=== PATIENT | female | born 1955 | race Caucasian/White ===

== ENCOUNTER 2021-10-11 14:19 | Inpatient (IN) | payer BC, MEDICARE ==
[2021-10-11] MEDS ORDERED: SODIUM CHLORIDE 0.9% 1,000 ML IV ONE ×2 (15:29→15:53)
[2021-10-11] MEDS ORDERED: AMPICILLIN-SULBACTAM 3 GM in SODIUM CHLORIDE 0.9% 100 ML IVPB STA (15:47)
[2021-10-11] MEDS ORDERED: VANCOMYCIN IV PER PHARMACY 1 EACH MISC MISCELLANE PRN (15:47)
[2021-10-11] MEDS ORDERED: fentaNYL (PF) 50 MCG/ML 2 ML AMP IVP STA ×2 (15:53→17:38)
[2021-10-11 16:10] LABS: Albumin 3.4 g/dL (3.5-5.0); Calcium 9.9 mg/dL (8.4-10.2); Potassium 3.9 mmol/L (3.5-5.1); Total Bilirubin 0.7 mg/dL (0.2-1.3); Total Protein 7.5 g/dL (6.3-8.2)
[2021-10-11 16:14] LABS: Appearance,Urine Turbid (Clear); Bacteria,Urine Occasional /hpf; Bilirubin,Urine Negative (Negative); Blood,Urine Small (Negative); Color,Urine Yellow; Glucose,Urine (UA) Negative (Negative); Hyaline Casts,Urine 5 /lpf (0-2); Ketones,Urine Negative (Negative); Leukocyte Esterase,Urine Large (Negative); Nitrite,Urine Negative (Negative); PH, Urine 5.5 (5.0-8.0); Protein,Urine 1+ (Negative); RBC,Urine 20 /hpf (0-5); Specific Gravity,Urine 1.016 (1.001-1.035); Squamous Epithelial Cell,Urine 10 /hpf (0-4); Urobilinogen,Urine <2.0 mg/dL (<2.0); WBC,Urine >182 /hpf (0-5)
[2021-10-11 16:25] LABS: Basophils # (A) 0.1 k/uL (0-0.2); Basophils % (A) 0 %; Eosinophils % (A) 0 %; HCT 45.9 % (34.0-46.0); HGB 14.9 gm/dL (11.4-16.0); Lymphocytes # (A) 0.6 k/uL (1.0-4.8); Lymphocytes % (A) 3 %; MCH 27.9 pg (25.0-35.0); MCHC 32.5 g/dL (31.0-37.0); MCV 85.9 fL (80.0-100.0); Monocytes % (A) 4 %; Neutrophils # (A) 22.9 k/uL (1.3-7.7); Neutrophils % (A) 93 %; Platelet Count 480 k/uL (150-450); RBC 5.35 m/uL (3.80-5.40); RDW 15.3 % (11.5-15.5); WBC 24.8 k/uL (3.8-10.6)
[2021-10-11 16:27] LABS: Partial Thromboplastin Time 23.9 sec (22.0-30.0)
[2021-10-11] MEDS ORDERED: VANCOMYCIN 1,500 MG in SODIUM CHLORIDE 0.9% 250 ML IVPB ONE (16:30)
--- NOTE | 2021-10-11 16:47 | ED ---
General Adult HPI - General Source: patient, EMS Mode of arrival: EMS Limitations: no limitations <Jean Paul Ponce - Last Filed: 10/12/21 00:19> <Giselle Simmons - Last Filed: 10/14/21 00:02> - General Chief complaint: Extremity Injury, Lower Stated complaint: wounds Time Seen by Provider: 10/11/21 15:18 - History of Present Illness Initial comments: Patient is a 66-year-old female presenting with chief complaint of wounds to the bilateral lower legs. Patient states that she has not followed with a doctor for at least 20 years. Her at bedside states that the wounds on her bilateral lower legs started around June this year. The patient attempted to manage them at home through antibiotic creams and wrapping them. The states that he believes she has CHF, as her legs were routinely swollen, red, and weeping, causing the wounds to begin. She denies any trauma or injury prior to the wounds. Patient states that today at home she fell hitting her head, she denies loss of consciousness or blood thinners. She denies history of diabetes, chest pain, shortness of breath, lightheadedness, abdominal pain, nausea, vomiting, diarrhea, hematochezia, cough, hemoptysis, neck pain or stiffness, dysuria, hematuria, urgency, frequency, vision or hearing changes, dizziness. (Jean Paul Ponce) - Related Data Home Medications Medication Instructions Recorded Confirmed Ascorbic Acid [Vitamin C] 1,000 mg PO DAILY 10/11/21 10/11/21 Cholecalciferol [Vitamin D3 (125 125 mcg PO DAILY 10/11/21 10/11/21 Mcg = 5000 Iu)] Flaxseed Oil 1,000 mg PO DAILY 10/11/21 10/11/21 Ibuprofen [Motrin Ib] 600 mg PO Q8H PRN 10/11/21 10/11/21 Magnesium Oxide [Mag-Ox] 400 mg PO DAILY 10/11/21 10/11/21 Multivitamins, Thera [Multivitamin 1 tab PO DAILY 10/11/21 10/11/21 (formulary)] Naproxen Sodium [Aleve] 220 mg PO BID PRN 10/11/21 10/11/21 [place]-3 Fatty Acids/Fish Oil [Fish 1 cap PO DAILY 10/11/21 10/11/21 Oil 1,000 mg Softgel] Potassium Gluconate [Potassium 99 mg PO DAILY 10/11/21 10/11/21 Gluconate ER] Sennosides [Ex-Lax Chew] 15 mg PO DAILY PRN 10/11/21 10/11/21 Vitamin A [Vitamin A (8,000 Units 2,400 mcg PO DAILY 10/11/21 10/11/21 = 2,400 MCG)] Allergies Allergy/AdvReac Type Severity Reaction Status Date / Time No Known Allergies Allergy Verified 10/11/21 20:24 Review of Systems ROS Other: All systems not noted in ROS Statement are negative. <Jean Paul Ponce - Last Filed: 10/12/21 00:19> ROS Other: All systems not noted in ROS Statement are negative. <Giselle Simmons - Last Filed: 10/14/21 00:02> ROS Statement: Those systems with pertinent positive or pertinent negative responses have been documented in the HPI. Past Medical History Additional Past Medical History / Comment(s): lower back pain History of Any Multi-Drug Resistant Organisms: None Reported Past Surgical History: Tubal Ligation Past Psychological History: No Psychological Hx Reported Smoking Status: Current every day smoker Past Alcohol Use History: None Reported Past Drug Use History: None Reported <Jean Paul Ponce - Last Filed: 10/12/21 00:19> General Exam Limitations: no limitations General appearance: alert, in no apparent distress Head exam: Present: atraumatic, normocephalic, normal inspection Eye exam: Present: normal appearance, PERRL, EOMI. Absent: scleral icterus Neck exam: Present: normal inspection Respiratory exam: Present: normal lung sounds bilaterally. Absent: respiratory distress, wheezes, rales, rhonchi, stridor Cardiovascular Exam: Present: regular rate, normal rhythm, normal heart sounds. Absent: systolic murmur, diastolic murmur, rubs, gallop, clicks Extremities exam: Present: tenderness, pedal edema, other (Bilateral lower legs are swollen, red, have clearly necrotic wounds appearing black with green discharge and foul odor). Absent: full ROM Neurological exam: Present: alert, oriented X3, CN II-XII intact Psychiatric exam: Present: normal affect, normal mood <Jean Paul Ponce - Last Filed: 10/12/21 00:19> Course <Jean Paul Ponce - Last Filed: 10/12/21 00:19> Vital Signs 10/11/21 10/11/21 10/11/21 14:56 18:08 21:35 Temperature 97.6 F 97.8 F Pulse Rate 62 96 75 Respiratory 18 18 20 Rate Blood Pressure 98/62 109/59 125/68 O2 Sat by Pulse 97 97 95 Oximetry - Reevaluation(s) Reevaluation #1: Reevaluation patient is complaining of leg pain. Blood pressure has improved to 120/82, patient is not tachycardiac or hypoxic. Skin of the bilateral lower extremities is unchanged. 10/11/21 20:38 (Jean Paul Ponce) Medical Decision Making - Lab Data Result diagrams: 10/11/21 15:44 10/11/21 15:44 - Radiology Data Radiology results: report reviewed, image reviewed <Jean Paul Ponce - Last Filed: 10/12/21 00:19> - Lab Data Result diagrams: 10/13/21 06:00 10/13/21 06:26 <Giselle Simmons - Last Filed: 10/14/21 00:02> - Medical Decision Making Patient is a 66-year-old female presenting for evaluation of bilateral lower leg weakness. Her at bedside states that her wounds began in June, the patient attempted to care for herself with antibiotic creams. Patient also states that today she had a fall where she injured her head, no loss of consciousness, neck pain, or use of blood thinners. Today at presentation the wounds appear to be necrotic, they are black with green discharge and foul odor. She is very tender even with light pressure applied. No focal neurological deficits. Signal is obtained via Doppler from bilateral pedal pulses. Patient is hypotensive. CBC is remarkable for leukocytosis with WBC count of 24.8. She is hyponatremic with sodium of 130. She is in kidney failure with creatinine of 3.08 and BUN of 95 and GFR of 15. Urine is suspicious for UTI with positive WBC and small amount of blood. Patient was started on 2 L IV normal saline bolus, vancomycin, Unasyn. On reassessment patient's blood pressure is improving with IV fluids, she is placed on maintenance rate of [address] brain and cervical spine without contrast: Large right middle cerebral artery distribution subacute infarct. No fracture of the cervical spine or hemorrhage X-ray shows soft tissue swelling. No fracture or evidence of bone destruction. I spoke with Dr. Delatorre from [facility] to agreed to admit the patient. I informed the patient of this decision, she conveyed verbal understanding and agreed to the plan. I discussed this case with my attending Dr. Simmons. [facility] - Lab Data Lab Results 10/11/21 10/11/21 10/11/21 Range/Units 15:44 15:44 15:44 WBC 24.8 H (3.8-10.6) k/uL RBC 5.35 (3.80-5.40) m/uL Hgb 14.9 (11.4-16.0) gm/dL Hct 45.9 (34.0-46.0) % MCV 85.9 (80.0-100.0) fL MCH 27.9 (25.0-35.0) pg MCHC 32.5 (31.0-37.0) g/dL RDW 15.3 (11.5-15.5) % Plt Count 480 H (150-450) k/uL MPV 7.0 Neutrophils % 93 % Lymphocytes % 3 % Monocytes % 4 % Eosinophils % 0 % Basophils % 0 % Neutrophils # 22.9 H (1.3-7.7) k/uL Lymphocytes # 0.6 L (1.0-4.8) k/uL Monocytes # 1.0 (0-1.0) k/uL Eosinophils # 0.0 (0-0.7) k/uL Basophils # 0.1 (0-0.2) k/uL PT 11.0 (9.0-12.0) sec INR 1.0 (<1.2) APTT 23.9 (22.0-30.0) sec Sodium (137-145) mmol/L Potassium (3.5-5.1) mmol/L Chloride (98-107) mmol/L Carbon Dioxide (22-30) mmol/L Anion Gap mmol/L BUN (7-17) mg/dL Creatinine (0.52-1.04) mg/dL Est GFR (CKD-EPI)AfAm (>60 ml/min/1.73 sqM) Est GFR (CKD-EPI)NonAf (>60 ml/min/1.73 sqM) Glucose (74-99) mg/dL Plasma Lactic Acid Miguel (0.7-2.0) mmol/L Calcium (8.4-10.2) mg/dL Total Bilirubin (0.2-1.3) mg/dL AST (14-36) U/L ALT (4-34) U/L Alkaline Phosphatase (38-126) U/L Total Protein (6.3-8.2) g/dL Albumin (3.5-5.0) g/dL Urine Color Yellow Urine Appearance Turbid H (Clear) Urine pH 5.5 (5.0-8.0) Ur Specific [place] 1.016 (1.001-1.035) Urine Protein 1+ H (Negative) Urine Glucose (UA) Negative (Negative) Urine Ketones Negative (Negative) Urine Blood Small H (Negative) Urine Nitrite Negative (Negative) Urine Bilirubin Negative (Negative) Urine Urobilinogen <2.0 (<2.0) mg/dL Ur Leukocyte Esterase Large H (Negative) Urine RBC 20 H (0-5) /hpf Urine WBC >182 H (0-5) /hpf Ur Squamous Epith Cells 10 H (0-4) /hpf Urine Bacteria Occasional H (None) /hpf Hyaline Casts 5 H (0-2) /lpf 10/11/21 10/11/21 Range/Units 15:44 15:44 WBC (3.8-10.6) k/uL RBC (3.80-5.40) m/uL Hgb (11.4-16.0) gm/dL Hct (34.0-46.0) % MCV (80.0-100.0) fL MCH (25.0-35.0) pg MCHC (31.0-37.0) g/dL RDW (11.5-15.5) % Plt Count (150-450) k/uL MPV Neutrophils % % Lymphocytes % % Monocytes % % Eosinophils % % Basophils % % Neutrophils # (1.3-7.7) k/uL Lymphocytes # (1.0-4.8) k/uL Monocytes # (0-1.0) k/uL Eosinophils # (0-0.7) k/uL Basophils # (0-0.2) k/uL PT (9.0-12.0) sec INR (<1.2) APTT (22.0-30.0) sec Sodium 130 L (137-145) mmol/L Potassium 3.9 (3.5-5.1) mmol/L Chloride 93 L (98-107) mmol/L Carbon Dioxide 23 (22-30) mmol/L Anion Gap 14 mmol/L BUN 95 H (7-17) mg/dL Creatinine 3.08 H (0.52-1.04) mg/dL Est GFR (CKD-EPI)AfAm 17 (>60 ml/min/1.73 sqM) Est GFR (CKD-EPI)NonAf 15 (>60 ml/min/1.73 sqM) Glucose 140 H (74-99) mg/dL Plasma Lactic Acid Miguel 1.7 (0.7-2.0) mmol/L Calcium 9.9 (8.4-10.2) mg/dL Total Bilirubin 0.7 (0.2-1.3) mg/dL AST 17 (14-36) U/L ALT 20 (4-34) U/L Alkaline Phosphatase 159 H (38-126) U/L Total Protein 7.5 (6.3-8.2) g/dL Albumin 3.4 L (3.5-5.0) g/dL Urine Color Urine Appearance (Clear) Urine pH (5.0-8.0) Ur Specific [place] (1.001-1.035) Urine Protein (Negative) Urine Glucose (UA) (Negative) Urine Ketones (Negative) Urine Blood (Negative) Urine Nitrite (Negative) Urine Bilirubin (Negative) Urine Urobilinogen (<2.0) mg/dL Ur Leukocyte Esterase (Negative) Urine RBC (0-5) /hpf Urine WBC (0-5) /hpf Ur Squamous Epith Cells (0-4) /hpf Urine Bacteria (None) /hpf Hyaline Casts (0-2) /lpf - Radiology Data CT of the brain and cervical spine without contrast: Multilevel cervical spondylitic changes. No fracture. Large right middle cerebral artery distribution subacute infarct. Patchy white matter hypodensity consistent with chronic small vessel ischemia. No hemorrhage. (Jean Paul Ponce) Disposition Time of Disposition: 20:37 Decision to Admit Reason: Admit from EC Decision Date: 10/11/21 Decision Time: 20:37 <Jean Paul Ponce - Last Filed: 10/12/21 00:19> <Giselle Simmons - Last Filed: 10/14/21 00:02> Clinical Impression: Cellulitis Disposition: ADMITTED IP TO THIS HOSP Condition: Fair
--- NOTE | 2021-10-11 17:44 | CT ---
EXAMINATION TYPE: CT brain cspine wo con DATE OF EXAM: 10/11/2021 COMPARISON: None HISTORY: ams, septic CT DLP: 1362.6 mGycm Automated exposure control for dose reduction was used. Images of the brain and cervical spine obtained without contrast. There is large area of hypodensity involving the right temporal lobe that measures 9 x 3 cm and consi stent with subacute infarct. No mass effect. No midline shift. There is some patchy hypodensity in th e periventricular white matter and more noticeable in both frontal lobes. There is no evidence of int racranial hemorrhage. The calvarium is intact. Skull base is intact. There is normal aeration of the mastoid sinuses. Cervical vertebra have normal alignment. There is degenerative disc space narrowing at C4-5 and C5-6 and C6-7 with spurring of the endplates. Facet joints are intact. IMPRESSION: Multilevel cervical spondylotic changes. No fracture. Large right middle cerebral artery distribution subacute infarct. Patchy white matter hypodensity consistent with chronic small vessel ischemia. No hemorrhage.
[2021-10-11] MEDS: SODIUM CHLORIDE 0.9% 1,000 ML IV SCH (18:07)
--- NOTE | 2021-10-11 19:02 | XR ---
EXAMINATION TYPE: XR tibia fibula bilateral DATE OF EXAM: 10/11/2021 COMPARISON: NONE HISTORY: Infection TECHNIQUE: 7 views FINDINGS: Multiple film exam shows no fracture nor dislocation. Ankle joint and knee joint appear int act. No evidence of focal bone destruction. There is some mild soft tissue swelling over the anterior left mid and lower tibia. There is similar mild anterior soft tissue swelling over the lower right a nterior tibia. There is right large plantar calcaneal spur. IMPRESSION: Soft tissue swelling. No fracture. No evidence of bone destruction.
[2021-10-11] MEDS ORDERED: ACETAMINOPHEN TAB 325 MG TAB PO PRN (19:44)
[2021-10-11] MEDS ORDERED: NALOXONE 0.4 MG/ML 1 ML VIAL IV PRN (19:44)
[2021-10-11] MEDS ORDERED: ACETAMINOPHEN IV (For NPO) 1,000 MG in EMPTY BAG 1 BAG IVPB STA (20:40)
[2021-10-12] MEDS ORDERED: GABAPENTIN 300 MG CAP PO STA (01:34)
--- NOTE | 2021-10-12 02:08 | P.HPIM ---
History of Present Illness H&P Date: 10/11/21 Chief Complaint: bilateral leg wounds 66-year-old female no significant past medical history patient has not followed up with a doctor for over 20 years She is coming in today complaining of bilateral leg wounds, most of the history was obtained by talking to the daughter. The patient herself was having some odd behavior with labile emotions, most of the time she was holding her daughters handing crying feeling ashamed and frustrated with the condition of her legs. Per the daughter she never seen the wounds herself as the patient kept him wrapped but now she knows that it started back in June and it has been getting worse since then Patient denies any fevers or chills denies any chest pain or trouble breathing denies any abdominal pain nausea or vomiting. Denies any GI bleeding denies any focal neuro deficits However she does report draining wounds bilateral legs that's been getting worse over the past couple months, very tender to the light touch with a foul-smelling discharge. Otherwise history was very limited due to patient emotional swings and the daughter tried to comfort Workup in the ED showed leukocytosis, normal lactic acidosis, hyponatremia. Imaging showed large right MCA subacute infarct, and white matter changes suggestive of chronic small vessel ischemia Patient was given Unasyn and vancomycin cultures obtained and admitted for further care daughter reports a fall the other day , with no LOC no report of drug abuse , but patient does admit to tobacco smoking and blames her leg condition on smoking Review of Systems ROS unobtainable: due to mental status Past Medical History Additional Past Medical History / Comment(s): lower back pain History of Any Multi-Drug Resistant Organisms: None Reported Past Surgical History: Tubal Ligation Past Anesthesia/Blood Transfusion Reactions: No Reported Reaction Past Psychological History: No Psychological Hx Reported Smoking Status: Current every day smoker Past Alcohol Use History: None Reported Past Drug Use History: None Reported - Past Family History family Additional Family Medical History / Comment(s): heart disease chf Medications and Allergies Home Medications Medication Instructions Recorded Confirmed Type Ascorbic Acid [Vitamin C] 1,000 mg PO DAILY 10/11/21 10/11/21 History Cholecalciferol [Vitamin D3 (125 125 mcg PO DAILY 10/11/21 10/11/21 History Mcg = 5000 Iu)] Flaxseed Oil 1,000 mg PO DAILY 10/11/21 10/11/21 History Ibuprofen [Motrin Ib] 600 mg PO Q8H PRN 10/11/21 10/11/21 History Magnesium Oxide [Mag-Ox] 400 mg PO DAILY 10/11/21 10/11/21 History Multivitamins, Thera [Multivitamin 1 tab PO DAILY 10/11/21 10/11/21 History (formulary)] Naproxen Sodium [Aleve] 220 mg PO BID PRN 10/11/21 10/11/21 History [place]-3 Fatty Acids/Fish Oil [Fish 1 cap PO DAILY 10/11/21 10/11/21 History Oil 1,000 mg Softgel] Potassium Gluconate [Potassium 99 mg PO DAILY 10/11/21 10/11/21 History Gluconate ER] Sennosides [Ex-Lax Chew] 15 mg PO DAILY PRN 10/11/21 10/11/21 History Vitamin A [Vitamin A (8,000 Units 2,400 mcg PO DAILY 10/11/21 10/11/21 History = 2,400 MCG)] Allergies Allergy/AdvReac Type Severity Reaction Status Date / Time No Known Allergies Allergy Verified 10/11/21 20:24 Physical Exam Vitals: Vital Signs Temp Pulse Resp BP Pulse Ox 10/11/21 21:35 75 20 125/68 95 10/11/21 18:08 97.8 F 96 18 109/59 97 10/11/21 14:56 97.6 F 62 18 98/62 97 Intake and Output 10/11/21 10/11/21 10/12/21 14:59 22:59 06:59 Other: Weight 81.1 kg 81.1 kg limited exam due patient behavior and emotions. Constitutional: labile emotions, bizarre behavior Eyes: Anicteric sclerae, moist conjunctiva, Pupils equal round reactive to light ENMT: NC/AT Oropharynx clear, no erythema, or exudates Neck: Supple, no masses, or JVD No carotid bruits No thyromegaly Lungs: Clear to auscultation Clear to percussion Normal respiratory effort, no accessory muscle use Cardiovascular: Heart regular in rate and rhythm, No murmurs, gallops, or rubs No peripheral edema Abdominal: Soft Nontender, no guarding, rebound or rigidity Abdomen moving with respiration Normoactive bowel sounds No hepatomegaly, No splenomegaly No palpable mass No abdominal wall hernia noted Skin: bilateral erythema and swelling of the legs, multiple wounds with eschar and foul smelling discharge. some bandage parts still in place from home. Extremities: patient does not allow anyone to touch her legs Psychiatric: Alert and oriented to person, place bizarre behavior , paranoid Neuro Muscles Strength 4/5 in bilateral upper extremities , refused examining her lower extremities Sensation could not be performed over her lower extremities Cranial nerves II-XII grossly intact No focal sensory deficits Lymphatics: no palpable cervical or supraclavicular , or inguinal lymph nodes Results CBC & Chem 7: 10/11/21 15:44 10/11/21 15:44 Labs: Abnormal Lab Results - Last 24 Hours (Table) 10/11/21 10/11/21 10/11/21 Range/Units 15:44 15:44 15:44 WBC 24.8 H (3.8-10.6) k/uL Plt Count 480 H (150-450) k/uL Neutrophils # 22.9 H (1.3-7.7) k/uL Lymphocytes # 0.6 L (1.0-4.8) k/uL Sodium 130 L (137-145) mmol/L Chloride 93 L (98-107) mmol/L BUN 95 H (7-17) mg/dL Creatinine 3.08 H (0.52-1.04) mg/dL Glucose 140 H (74-99) mg/dL Alkaline Phosphatase 159 H (38-126) U/L Albumin 3.4 L (3.5-5.0) g/dL Urine Appearance Turbid H (Clear) Urine Protein 1+ H (Negative) Urine Blood Small H (Negative) Ur Leukocyte Esterase Large H (Negative) Urine RBC 20 H (0-5) /hpf Urine WBC >182 H (0-5) /hpf Ur Squamous Epith Cells 10 H (0-4) /hpf Urine Bacteria Occasional H (None) /hpf Hyaline Casts 5 H (0-2) /lpf Thrombosis Risk Factor Assmnt - Choose All That Apply Each Factor Represents 1 point: Obesity (BMI >25), Swollen legs (current) Each Risk Factor Represents 2 Points: Age 61-74 years Other congenital or acquired thrombophilia - If yes, enter type in comment: No Thrombosis Risk Factor Assessment Total Risk Factor Score: 4 Thrombosis Risk Factor Assessment Level: Moderate Risk Assessment and Plan Assessment: sepsis with bilateral leg wounds / cellulitis follow up cultures empiric antibiotics with vanco ivf hydration with saline pain control wound care subacute stroke neuro checks neurology consult aspirin and statin echo carotid US TSH A1C Lipid pannel fall precautions full code hepairn sc tid anticipated length of stay > 2mid nights
[2021-10-12] MEDS: SODIUM CHLORIDE 0.9% 1,000 ML IV SCH ×3 (04:05→20:54)
[2021-10-12 08:23] LABS: African American GFR (CKD) 33 (>60 ml/min/1.73 sqM); Anion Gap 8 mmol/L; Blood Urea Nitrogen 79 mg/dL (7-17); Calcium 8.1 mg/dL (8.4-10.2); Carbon Dioxide 23 mmol/L (22-30); Chloride 105 mmol/L (98-107); Glucose 103 mg/dL (74-99); Non-African American GFR(CKD) 29 (>60 ml/min/1.73 sqM); Potassium 3.2 mmol/L (3.5-5.1); Sodium 136 mmol/L (137-145)
[2021-10-12] MEDS ORDERED: HALOPERIDOL LACTATE 5 MG/ML 1 ML VIAL IM PRN (08:57)
[2021-10-12] MEDS ORDERED: POTASSIUM CHLORIDE ER 20 MEQ TAB.ER PO STA (08:58)
[2021-10-12] MEDS ORDERED: [UNRECOGNIZED DRUG - OTHER] PO PRN (09:00)
[2021-10-12] MEDS: ATORVASTATIN 40 MG TAB PO SCH (09:48)
[2021-10-12] MEDS: HEPARIN SODIUM,PORCINE/PF 5,000 UNIT/0.5 ML SYRINGE SQ SCH ×4 (09:49→23:31)
[2021-10-12] MEDS: MORPHINE SULFATE 4 MG/ML SYRINGE IVP PRN ×2 (09:49→14:45)
[2021-10-12] MEDS: ASPIRIN 325 MG TAB PO SCH (09:49)
[2021-10-12] MEDS: ACETAMINOPHEN IV (For NPO) 1,000 MG in EMPTY BAG 1 BAG IVPB SCH ×3 (11:20→23:30)
[2021-10-12 11:31] LABS: HCT 37.7 % (37.2-46.3); HGB 12.2 g/dL (12.0-15.0); MCH 27.8 pg (27.0-32.0); MCHC 32.4 g/dL (32.0-37.0); MCV 85.9 fL (80.0-97.0); Mean Platelet Volume 8.9 fL (9.5-12.2); NRBC Per 100 WBC 0 /100 WBCS (0.0-0.0); Platelet Count 391 X 10*3/uL (140-440); RBC 4.39 X 10*6/uL (4.10-5.20); RDW 15.9 % (11.5-14.5)
[2021-10-12 11:49] LABS: Chol/HDL Ratio 5.62 Ratio; LDL Cholesterol,Calculated 101.5 mg/dL (0.0-131.0)
[2021-10-12] MEDS ORDERED: VANCOMYCIN 1,500 MG in SODIUM CHLORIDE 0.9% 250 ML IVPB ONE (12:00)
[2021-10-12 12:02] LABS: Basophils # (A) 0.08 X 10*3/uL (0.00-0.10); Basophils % (A) 0.3 %; Eosinophils # (A) 0.01 X 10*3/uL (0.04-0.35); Eosinophils % (A) 0 %; Lymphocytes # (A) 0.72 X 10*3/uL (0.90-5.00); Lymphocytes % (A) 3.1 %; Monocytes # (A) 1.52 X 10*3/uL (0.20-1.00); Monocytes % (A) 6.6 %; Neutrophils # (A) 20.64 X 10*3/uL (1.80-7.70)
--- NOTE | 2021-10-12 12:37 | CA ---
Transthoracic Echo Report Name: Mirela Melgar Age: 66 Gender: F : 1955 Exam Date: 10/12/2021 08:25 Exam Location: [facility] Ht (in): 63 Wt (lb): 178 Ordering Physician: Brittaney Almazan MD Attending/Referring Phys: [id number], Tha Supervisor [employer] Vania Navarrete RDCS Procedure CPT: Indications: stroke Cardiac Hx: No cardiac hx Technical Quality: Good Contrast 1: Total Dose (mL): Contrast 2: Total Dose (mL): MEASUREMENTS (Male / Female) Normal Values 2D ECHO LV Diastolic Diameter PLAX 4.9 cm 4.2 - 5.9 / 3.9 - 5.3 cm LV Systolic Diameter PLAX 3.4 cm IVS Diastolic Thickness 0.8 cm 0.6 - 1.0 / 0.6 - 0.9 cm LVPW Diastolic Thickness 1.0 cm 0.6 - 1.0 / 0.6 - 0.9 cm LV Relative Wall Thickness 0.4 RV Internal Dim ED PLAX 4.5 cm LVOT Diameter 1.7 cm LA Volume 38.0 cm 18 - 58 / 22 - 52 cm M-MODE Aortic Root Diameter MM 3.4 cm LA Systolic Diameter MM 2.3 cm LA Ao Ratio MM 0.7 MV E Point Septal Separation 2.3 cm AV Cusp Separation MM 1.6 cm DOPPLER AV Peak Velocity 233.5 cm/s AV Peak Gradient 21.8 mmHg AV Mean Velocity 160.7 cm/s AV Mean Gradient 12.1 mmHg AV Velocity Time Integral 43.0 cm LVOT Peak Velocity 109.5 cm/s LVOT Peak Gradient 4.8 mmHg AV Area Cont Eq pk 1.0 cm MV Area PHT 3.7 cm MR Peak Velocity 200.0 cm/s MR Peak Gradient 16.0 mmHg Mitral E Point Velocity 81.6 cm/s Mitral A Point Velocity 132.5 cm/s Mitral E to A Ratio 0.6 MV Deceleration Time 204.9 ms MV E' Velocity 5.1 cm/s Mitral E to MV E' Ratio 15.9 TR Peak Velocity 235.4 cm/s TR Peak Gradient 22.2 mmHg Right Ventricular Systolic Press 25.7 mmHg FINDINGS Left Ventricle Normal left ventricular size, wall thickness. Left ventricular ejection fraction is estimated at 40-45 %. Grade 1 diastolic dysfunction. Mid to basal inferoseptal is hypokinetic. Right Ventricle Moderate right ventricular dilatation. Right ventricular systolic pressure within normal limits. Right Atrium The right atrium is normal in size. Left Atrium The left atrium is normal in size. Mitral Valve Structurally normal mitral valve without significant stenosis or prolapse. There is mild mitral regurgitation. Mitral valve thickened. Aortic Valve Mild aortic stenosis with a peak gradient of 21 mmHg and a mean gradient of 12 mmHg. Trileaflet aortic valve. Tricuspid Valve Structurally normal tricuspid valve without significant stenosis. Pulmonary artery systolic pressure is normal. [id number] tricuspid regurgitation. Pulmonic Valve Structurally normal pulmonic valve without significant stenosis. There is no pulmonic regurgitation. Pericardium Normal pericardium without effusion. Aorta Normal aortic root dimension. CONCLUSIONS Moderate LV systolic dysfunction with inferoseptal hypokinesis or aortic sclerosis with mild aortic stenosis and mild mitral and mild to moderate tricuspid regurgitation Previewed by: Dr. Abel Mccall MD (Electronically Signed) Final Date: 12 October 2021 12:36
[2021-10-12] MEDS: HYDROcodone/APAP 5-325MG 1 EACH TAB PO PRN ×2 (13:21→20:53)
[2021-10-12] MEDS ORDERED: AMPICILLIN-SULBACTAM 3 GM in SODIUM CHLORIDE 0.9% 100 ML IVPB SCH (13:30)
--- NOTE | 2021-10-12 13:31 | P.CN ---
Psychiatric Consult - . Consult date: 10/12/21 Consult:: 10/12/21 13:21 This is a psychiatric evaluation on Mirela Lugo who is a 66-year-old female and was currently hospitalized with multiple health problems that includes bilateral leg wounds. Patient also has had workup in the ED showing leukocytosis hyponatremia large right MCA subacute infarct and white matter changes suggestive of chronic small vessel ischemia Patient is currently on antibiotic treatment as well as has also been started on Haldol when necessary as of today Patient has been requested for psychiatric evaluation for acute mental status changes This was also noticed at the time of admission were patient seemed to be very labile with frequent crying and hanging onto her daughter When seen today patient was pleasant in interaction She seemed to be appropriate for a short period of time where she was able to give appropriate history about her coming in the hospital for some mood problems but was unable to explain She however seemed to be more interested in giving her information about her past history, going through a divorce when she saw a counselor along with her ex- as well as talked about her grandson who lives in [place] and was dating someone who looks like Latosha Patient then suddenly started to stutter and cry and stated that it was coming Patient then started to poke herself at different places on her chest trying to get it out She also continued to cry loudly for a less than minute and then wouldn't cling onto her hand These episodes would clear up suddenly and patient wouldn't be back to her pleasant self Past history personal and social history Patient was able to talk about her divorce and remarriage She was able to give appropriate information regarding the children and grandchildren 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 She was unable to give any specific dates and times She was unable to give any specifics about her reason for being in the hospital Mental status examination reveals a elderly female who initially was pleasant and cooperative but seemed to have labile affect with periods of crying fearfulness and also possibly experiencing visual hallucinations Further mental status examination is as per described above Patient's formal and operational judgment and insight are poor Problem-solving abilities are impaired Memory for the past and present events appears to be patchy with recent memory worse in the past Cognitively patient appears to be impaired Diagnostic impression: Major neurocognitive disorder/delirium Psychotic disorder unspecified Plan: The patient is oriented been started on haloperidol when necessary starting today and would agree with the current regimen Patient's current symptoms are involving and most likely related to her medical complications and will most likely fluctuated until those under better control We'll follow this patient along with you. Monitor for EPS tremor tardive dyskinesia akathisia QTC prolongation with the antipsychotic administration Thank you" kind referral please contact me if any further questions Rudy Tomas M.D. 10/12/2021
--- NOTE | 2021-10-12 14:09 | P.PN ---
Subjective Progress Note Date: 10/12/21 (delayed charting seen at 0830) Principal diagnosis: wounds Patient is a 66 yo female with low back pain who has not seen a doctor in years who was sent in by Dr. Jones for lower extremity wounds. She was found to have cellulitis with sepsis, ZANDER, and thrombocytosis. Her UA demonstrated bacturia. Her Head CT showed multilevel cervical spondolytic changes and left middle cerebral artery subacute infarct and chronic small vessel ischemic changes. She was started on antibiotics and IV fluids. Patient seen and examined at bedside. She is tearful and crying, she states that her wounds started about 6 months ago, she was using emu cream and wrapping her legs but there just continued to get worse. She is tearful as she lost both her sons in a hosptial and she thinks that the shadows are coming to get her. Daughter is at bedside and all questions were answered. General: ill appearing, moderate distress, appears at stated age Derm: bilateral lower extremites with erythema, warmth, edema with necrotic areas over bilateral bustillos and areas of bleeding, purulent drainage Head: atraumatic, normocephalic, symmetric Eyes: EOMI, no lid lag, anicteric sclera Mouth: no lip lesion, mucus membranes moist Cardiovascular: S1S2 tachy, no murmur, positive posterior tibial pulse bilateral, Lungs: Course bs bilateral, no rhonchi, no rales , no accessory muscle use Abdominal: soft, nontender to palpation, no guarding, no appreciable organomegaly Ext: no gross muscle atrophy, no edema, no contractures Neuro: CN II-XI grossly intact, no focal neuro deficits Psych: Alert, oriented, upset, tearful concerned about the shadows getting her Assessment/Plan: Bilateral Lower extremity cellultis with chronic wounds - spent time removing dressings from bilateral lower extremities with saline and sterile water - consult Dr. Penaloza - pain control - morphine, norco, and neurontin - unasyn and vanco - blood cultures pending - likely need enzymaric debridement and when pain improved doppler to asses blood flow. leave without ointment until evaluated by Dr. Penaloza ZANDER - IVF - avoid additional nephrotoxic agents - improving but if improvement slows then renal ultrasound Subacute Left MCA CVA - ASA, statin - echo with depressed EF - carotid us - lipid profile - check A1C - neuro consults Cardiomyopathy - EF 40-45% - Grade 1 diastolic dysfunction - hypokensis - consult cardio Hallucinations - prn haldol - psych consult - supportive environment Bacturia - concern for UTI with halluciations as patient is unreliable and has been urinating frequently per nursing - on unasyn - await cultures DVT prophylaxis: Lovenox Discussed with: Patient, nursing, daughter, Anticipated discharge: pending clinical course Anticipated discharge place: home A total of 65 minutes was spent on the care of this complex patient more than 50% of the time was spent in counseling and care coordination. Objective - Vital Signs Vital signs: Vital Signs Temp 98.4 F 10/12/21 11:39 Pulse 83 10/12/21 11:39 Resp 20 10/12/21 11:39 BP 99/67 10/12/21 11:39 Pulse Ox 95 10/12/21 11:39 Intake & Output 10/11/21 10/12/21 10/12/21 18:59 06:59 18:59 Intake Total 1170 Balance 1170 Weight 81.1 kg 81.1 kg Intake: Intake, IV Titration 1170 Amount Sodium Chloride 0.9% 1, 1170 000 ml @ 130 mls/hr IV . Q7H42M [facility] Rx#:[id number] Other: Voiding Method Incontinent # Voids 2 - Labs CBC & Chem 7: 10/12/21 06:12 10/12/21 06:12 Labs: Abnormal Lab Results - Last 24 Hours (Table) 10/11/21 10/11/21 10/11/21 Range/Units 15:44 15:44 15:44 WBC 24.8 H (3.8-10.6) k/uL RDW (11.5-14.5) % Plt Count 480 H (150-450) k/uL MPV (9.5-12.2) fL Immature Gran # (0.00-0.04) X 10*3/uL Neutrophils # 22.9 H (1.3-7.7) k/uL Lymphocytes # 0.6 L (1.0-4.8) k/uL Monocytes # (0.20-1.00) X 10*3/uL Eosinophils # (0.04-0.35) X 10*3/uL Sodium 130 L (137-145) mmol/L Potassium (3.5-5.1) mmol/L Chloride 93 L (98-107) mmol/L BUN 95 H (7-17) mg/dL Creatinine 3.08 H (0.52-1.04) mg/dL Glucose 140 H (74-99) mg/dL Hemoglobin A1c (0.0-6.0) % Calcium (8.4-10.2) mg/dL Alkaline Phosphatase 159 H (38-126) U/L Albumin 3.4 L (3.5-5.0) g/dL HDL Cholesterol (40.00-60.00) mg/dL TSH (0.350-5.500) uIU/mL Urine Appearance Turbid H (Clear) Urine Protein 1+ H (Negative) Urine Blood Small H (Negative) Ur Leukocyte Esterase Large H (Negative) Urine RBC 20 H (0-5) /hpf Urine WBC >182 H (0-5) /hpf Ur Squamous Epith Cells 10 H (0-4) /hpf Urine Bacteria Occasional H (None) /hpf Hyaline Casts 5 H (0-2) /lpf 10/12/21 10/12/21 10/12/21 Range/Units 06:12 06:12 06:12 WBC 23.20 H (3.8-10.6) k/uL RDW 15.9 H (11.5-14.5) % Plt Count (150-450) k/uL MPV 8.9 L (9.5-12.2) fL Immature Gran # 0.23 H (0.00-0.04) X 10*3/uL Neutrophils # 20.64 H (1.3-7.7) k/uL Lymphocytes # 0.72 L (1.0-4.8) k/uL Monocytes # 1.52 H (0.20-1.00) X 10*3/uL Eosinophils # 0.01 L (0.04-0.35) X 10*3/uL Sodium 136 L (137-145) mmol/L Potassium 3.2 L (3.5-5.1) mmol/L Chloride (98-107) mmol/L BUN 79 H (7-17) mg/dL Creatinine 1.80 H (0.52-1.04) mg/dL Glucose 103 H (74-99) mg/dL Hemoglobin A1c 8.0 H (0.0-6.0) % Calcium 8.1 L (8.4-10.2) mg/dL Alkaline Phosphatase (38-126) U/L Albumin (3.5-5.0) g/dL HDL Cholesterol (40.00-60.00) mg/dL TSH (0.350-5.500) uIU/mL Urine Appearance (Clear) Urine Protein (Negative) Urine Blood (Negative) Ur Leukocyte Esterase (Negative) Urine RBC (0-5) /hpf Urine WBC (0-5) /hpf Ur Squamous Epith Cells (0-4) /hpf Urine Bacteria (None) /hpf Hyaline Casts (0-2) /lpf 10/12/21 Range/Units 06:12 WBC (3.8-10.6) k/uL RDW (11.5-14.5) % Plt Count (150-450) k/uL MPV (9.5-12.2) fL Immature Gran # (0.00-0.04) X 10*3/uL Neutrophils # (1.3-7.7) k/uL Lymphocytes # (1.0-4.8) k/uL Monocytes # (0.20-1.00) X 10*3/uL Eosinophils # (0.04-0.35) X 10*3/uL Sodium (137-145) mmol/L Potassium (3.5-5.1) mmol/L Chloride (98-107) mmol/L BUN (7-17) mg/dL Creatinine (0.52-1.04) mg/dL Glucose (74-99) mg/dL Hemoglobin A1c (0.0-6.0) % Calcium (8.4-10.2) mg/dL Alkaline Phosphatase (38-126) U/L Albumin (3.5-5.0) g/dL HDL Cholesterol 28.30 L (40.00-60.00) mg/dL TSH 0.222 L (0.350-5.500) uIU/mL Urine Appearance (Clear) Urine Protein (Negative) Urine Blood (Negative) Ur Leukocyte Esterase (Negative) Urine RBC (0-5) /hpf Urine WBC (0-5) /hpf Ur Squamous Epith Cells (0-4) /hpf Urine Bacteria (None) /hpf Hyaline Casts (0-2) /lpf Microbiology - Last 24 Hours (Table) 10/11/21 15:44 Urine Culture - Preliminary Urine,Voided 10/11/21 15:44 Wound Culture - Preliminary Leg - Left
[2021-10-12] MEDS: GABAPENTIN 100 MG CAP PO SCH ×2 (16:03→20:54)
--- NOTE | 2021-10-12 16:14 | US ---
EXAMINATION TYPE: US carotid duplex BILAT DATE OF EXAM: 10/12/2021 COMPARISON: NONE CLINICAL HISTORY: subacute stroke. EXAM MEASUREMENTS: RIGHT: Peak Systolic Velocity (PSV) cm/sec ----- Right CCA: 103.0 ----- Right ICA: 79.3 ----- Right ECA: 74.1 ICA/CCA ratio: 0.77 RIGHT: End Diastole cm/sec ----- Right CCA: 17.5 ----- Right ICA: 9.7 ----- Right ECA: 11.0 LEFT: Peak Systolic Velocity (PSV) cm/sec ----- Left CCA: 83.2 ----- Left ICA: 96.1 ----- Left ECA: 194.0 ICA/CCA ratio: 1.16 LEFT: End Diastole cm/sec ----- Left CCA: 21.4 ----- Left ICA: 24.7 ----- Left ECA: 23.3 VERTEBRALS (direction of flow): Right Vertebral: unable to identify flow Left Vertebral: Antegrade Rhythm: Normal No significant stenosis seen. Elevated left ECA velocity. IMPRESSION: No significant common or internal carotid artery stenosis. Criteria for Assigning % of Stenosis / Diameter reduction (Estimation based on the indirect measurements of the internal carotid artery velocities (ICA PSV). 1. Normal (no stenosis)=ICA PSV < 125 cm/s: ratio < 2.0: ICA EDV<40 cm/s. 2. Less than 50% stenosis=ICA PSV < 125 cm/s: ratio < 2.0: ICA EDV<40 cm/s. 3. 50 to 69% stenosis=ICA PSV of 125 to 230 cm/s: ration 2.0 ? 4.0: ICA EDV 40-100 cm/s. 4. Greater than 70% stenosis to near occlusion= ICA PSV > 230 cm/s: ratio > 4.0: ICA EDV > 100 cm/s. 5. Near occlusion= ICA PSV velocities may be low or undetectable: variable ratio and ICA EDV. 6. Total occlusion=unable to detect flow.
--- NOTE | 2021-10-12 16:17 | P.CNNES ---
History of Present Illness Consult date: 10/12/21 Reason for Consult: stroke History of Present Illness: The patient is a 66-year-old female who is seen in neurologic consultation on October 12, 2021, via teleneurology. The patient is being seen because of concerns regarding stroke. She came into the hospital because of confusion and mental status changes. CT scan of the brain in the emergency department revealed a large, right hemispheric, subacute stroke. Lab work in the emergency department revealed a leukocytosis. Urinalysis is positive for infection. The patient was brought into the hospital by her daughter, who provided the history for the emergency department doctor and history and physical. The patient was reportedly very emotionally labile. Patient reportedly has not seen a doctor in many years. The patient also has wounds on her lower extremities. These wounds are reportedly weeping and foul-smelling. The patient's is present at the bedside at the time of the evaluation. He reports this his 's mental status is definitely different than usual. He is not really aware of the length of time that the wounds on her legs, have been present. The patient herself reports that they have been present for approximately 2-3 months. The patient's reports that other people have reported that the patient seems to be leaning to the left when she walks. She reportedly had a fall down a flight of stairs many years ago. Since that time she has had difficulty with her back and her left leg. The patient denies weakness in her left arm. She denies numbness and tingling in her face and arm. She denies visual changes, difficulty with speech and difficulty swallowing. The patient denies headache. The patient reportedly tripped and fell on Thursday of this past week. She reports feeling very weak. Past Medical History Additional Past Medical History / Comment(s): lower back pain History of Any Multi-Drug Resistant Organisms: None Reported Past Surgical History: Tubal Ligation Past Anesthesia/Blood Transfusion Reactions: No Reported Reaction Past Psychological History: No Psychological Hx Reported Smoking Status: Current every day smoker Past Alcohol Use History: None Reported Past Drug Use History: None Reported - Past Family History family Additional Family Medical History / Comment(s): heart disease chf Medications and Allergies Home Medications Medication Instructions Recorded Confirmed Type Ascorbic Acid [Vitamin C] 1,000 mg PO DAILY 10/11/21 10/11/21 History Cholecalciferol [Vitamin D3 (125 125 mcg PO DAILY 10/11/21 10/11/21 History Mcg = 5000 Iu)] Flaxseed Oil 1,000 mg PO DAILY 10/11/21 10/11/21 History Ibuprofen [Motrin Ib] 600 mg PO Q8H PRN 10/11/21 10/11/21 History Magnesium Oxide [Mag-Ox] 400 mg PO DAILY 10/11/21 10/11/21 History Multivitamins, Thera [Multivitamin 1 tab PO DAILY 10/11/21 10/11/21 History (formulary)] Naproxen Sodium [Aleve] 220 mg PO BID PRN 10/11/21 10/11/21 History [place]-3 Fatty Acids/Fish Oil [Fish 1 cap PO DAILY 10/11/21 10/11/21 History Oil 1,000 mg Softgel] Potassium Gluconate [Potassium 99 mg PO DAILY 10/11/21 10/11/21 History Gluconate ER] Sennosides [Ex-Lax Chew] 15 mg PO DAILY PRN 10/11/21 10/11/21 History Vitamin A [Vitamin A (8,000 Units 2,400 mcg PO DAILY 10/11/21 10/11/21 History = 2,400 MCG)] Allergies Allergy/AdvReac Type Severity Reaction Status Date / Time No Known Allergies Allergy Verified 10/11/21 20:24 Physical Examination - Vital Signs Vital Signs: Vital Signs Temp Pulse Pulse Resp BP BP Pulse Ox 10/12/21 04:40 97.7 F 83 18 108/64 96 10/12/21 00:05 18 10/11/21 21:35 75 20 125/68 95 10/11/21 18:08 97.8 F 96 18 109/59 97 10/11/21 14:56 97.6 F 62 18 98/62 97 Intake and Output 10/11/21 10/12/21 10/12/21 22:59 06:59 14:59 Intake Total 1170 Balance 1170 Intake: Intake, IV Titration 1170 Amount Sodium Chloride 0.9% 1, 1170 000 ml @ 130 mls/hr IV . Q7H42M [facility] Rx#:[id number] Other: # Voids 2 Weight 81.1 kg Gen.: The patient is reclining in the bed. She is well-nourished, she is in no acute distress. HEENT: Head is atraumatic, normocephalic. Fundus not visualized. There is no scleral icterus. Mucous membranes are dry. Neck: Supple without carotid bruits Heart: Regular rate and rhythm without murmur Lungs: Essentially clear to auscultation Extremities: There is cellulitis with wounds on the bilateral lower extremities, below the knees. Neurological examination Mental status: The patient is awake, alert and oriented 3. She is very tangential. She has difficulty staying on task, when answering questions and following instructions. She is hyperverbal. The patient is able to accurately follow two-step commands. There is no right/left confusion. Cranial nerves: Pupils are slightly unequal with the right pupil being 2.5 mm and the left 2 mm. Both are sluggishly reactive. [place] are full to confrontation. Extraocular movements are intact. There is no nystagmus. Facial sensation is intact. There is no facial asymmetry. Hearing is diminished. Uvula and palate are midline. Shoulder shrug is symmetric. Tongue protrudes midline. Motor: Strength is 5/5 in the bilateral upper extremities. Lower extremity strength testing was not carried out secondary to cellulitis and open wounds. Sensation: Intact to light touch in the bilateral upper extremities and bilateral thighs. There is no extinction with simultaneous stimulation. Coordination: There is no pronator drift. Finger to nose and rapid alternating movements are intact. Deep tendon reflexes: 2+/4+ in the bilateral upper extremities. Lower extremity reflexes are not assessed secondary to cellulitis and open wounds. Gait: Not assessed Results - Laboratory Findings CBC and BMP: 10/12/21 06:12 10/12/21 06:12 Abnormal Lab Findings: Abnormal Labs 10/11/21 10/11/21 10/11/21 15:44 15:44 15:44 WBC 24.8 H Plt Count 480 H Neutrophils # 22.9 H Lymphocytes # 0.6 L Sodium 130 L Potassium Chloride 93 L BUN 95 H Creatinine 3.08 H Glucose 140 H Calcium Alkaline Phosphatase 159 H Albumin 3.4 L Urine Appearance Turbid H Urine Protein 1+ H Urine Blood Small H Ur Leukocyte Esterase Large H Urine RBC 20 H Urine WBC >182 H Ur Squamous Epith Cells 10 H Urine Bacteria Occasional H Hyaline Casts 5 H 10/12/21 06:12 WBC Plt Count Neutrophils # Lymphocytes # Sodium 136 L Potassium 3.2 L Chloride BUN 79 H Creatinine 1.80 H Glucose 103 H Calcium 8.1 L Alkaline Phosphatase Albumin Urine Appearance Urine Protein Urine Blood Ur Leukocyte Esterase Urine RBC Urine WBC Ur Squamous Epith Cells Urine Bacteria Hyaline Casts - Diagnostic Findings Comments: CT scan images are personally reviewed. There is evidence of a large, subacute ischemic infarction involving the right cerebral hemisphere Assessment and Plan Assessment: 1. Large, subacute, right cerebral hemispheric infarct-the patient has no lateralizing findings on her examination, attributable to this stroke 2. Toxic encephalopathy/delirium secondary to infection Plan: 1. Dual antiplatelet therapy, with aspirin 81 mg and Plavix 75 mg daily for 21 days, then continue with aspirin monotherapy 2. High-dose statin should be initiated 3. 2-D echocardiogram 4. MRI of brain may be beneficial to further classify age of stroke 5. Carotid Doppler 6. Usual stroke orders including, PT, OT and speech therapy evaluations. Lipid panel, hemoglobin A1c and TSH Time with Patient: Greater than 30 (spent 40 minutes with patient via telemedicine)
[2021-10-12] MEDS: AMPICILLIN-SULBACTAM 3 GM in SODIUM CHLORIDE 0.9% 100 ML IVPB SCH (23:31)
--- NOTE | 2021-10-12 23:59 | P.CONS ---
History of Present Illness - Reason for Consult Consult date: 10/12/21 Bilateral lower extremity wound and cellulitis Requesting physician: Saritha Harper - Chief Complaint Bilateral lower extremity wound pain x months - History of Present Illness Patient is a 66-year-old female with no significant past medical history as the patient has not follow-up with the doctors for almost 20 years, patient did have a history of bilateral lower extremity swelling and apparently patient did have blisters does have rupture leading to some superficial ulceration with the patient has been taking care of at home by putting different type of salves on it, patient presented to the [facility] ER yesterday for evaluation of worsening bilateral lower extremity wound this patient apparently was getting frustrated initiated with her lower extremity wound had not healing patient be complaining of pain to bilateral lower extremity wound to be more of a dull aching to sharp 6-7 out of 10 and no radiation patient apparently having more swelling and redness is seen to having some foul-smelling drainage on presentation to the hospital the patient was afebrile and no fever have been recorded subsequently patient did have white count of 24.8 with a left shift did have elevated BUN to creatinine liver exams are normal urine has been positive patient did have local cultures obtained which are currently pending blood cultures are pending patient is currently being treated with a Unasyn infectious disease was consulted for further management of antibiotic therapy patient is also on vancomycin Review of Systems Positive point has been mentioned in the HPI rest of the systems are negative Past Medical History Additional Past Medical History / Comment(s): lower back pain History of Any Multi-Drug Resistant Organisms: None Reported Past Surgical History: Tubal Ligation Past Anesthesia/Blood Transfusion Reactions: No Reported Reaction Past Psychological History: No Psychological Hx Reported Smoking Status: Current every day smoker Past Alcohol Use History: None Reported Past Drug Use History: None Reported - Past Family History family Additional Family Medical History / Comment(s): heart disease chf Medications and Allergies Home Medications Medication Instructions Recorded Confirmed Type Ascorbic Acid [Vitamin C] 1,000 mg PO DAILY 10/11/21 10/11/21 History Cholecalciferol [Vitamin D3 (125 125 mcg PO DAILY 10/11/21 10/11/21 History Mcg = 5000 Iu)] Flaxseed Oil 1,000 mg PO DAILY 10/11/21 10/11/21 History Ibuprofen [Motrin Ib] 600 mg PO Q8H PRN 10/11/21 10/11/21 History Magnesium Oxide [Mag-Ox] 400 mg PO DAILY 10/11/21 10/11/21 History Multivitamins, Thera [Multivitamin 1 tab PO DAILY 10/11/21 10/11/21 History (formulary)] Naproxen Sodium [Aleve] 220 mg PO BID PRN 10/11/21 10/11/21 History [place]-3 Fatty Acids/Fish Oil [Fish 1 cap PO DAILY 10/11/21 10/11/21 History Oil 1,000 mg Softgel] Potassium Gluconate [Potassium 99 mg PO DAILY 10/11/21 10/11/21 History Gluconate ER] Sennosides [Ex-Lax Chew] 15 mg PO DAILY PRN 10/11/21 10/11/21 History Vitamin A [Vitamin A (8,000 Units 2,400 mcg PO DAILY 10/11/21 10/11/21 History = 2,400 MCG)] Allergies Allergy/AdvReac Type Severity Reaction Status Date / Time No Known Allergies Allergy Verified 10/11/21 20:24 Physical Exam Vitals: Vital Signs Temp Pulse Pulse Resp BP BP Pulse Ox 10/12/21 11:39 98.4 F 83 20 99/67 95 10/12/21 04:40 97.7 F 83 18 108/64 96 10/12/21 00:05 18 10/11/21 21:35 75 20 125/68 95 10/11/21 18:08 97.8 F 96 18 109/59 97 10/11/21 14:56 97.6 F 62 18 98/62 97 Intake and Output 10/11/21 10/12/21 10/12/21 22:59 06:59 14:59 Intake Total 1170 Balance 1170 Intake: Intake, IV Titration 1170 Amount Sodium Chloride 0.9% 1, 1170 000 ml @ 130 mls/hr IV . Q7H42M [facility] Rx#:[id number] Other: Voiding Method Incontinent # Voids 2 Weight 81.1 kg GENERAL DESCRIPTION: An elderly female lying in bed, no distress. No tachypnea or accessory muscle of respiration use. HEENT: Shows Pallor , no scleral icterus. Oral mucous membrane is dry. No pharyngeal erythema or thrush NECK: Trachea central, no thyromegaly. LUNGS: Unlabored breathing. Clear to auscultation anteriorly. No wheeze or crackle. HEART: S1, S2, regular rate and rhythm. No loud murmur ABDOMEN: Soft, no tenderness , guarding or rigidity, no organomegaly EXTREMITIES: Bilateral lower extremity with extensive wounds did have some necrotic skin and soft tissue surrounding redness and some foul-smelling SKIN: No rash, no masses palpable. NEUROLOGICAL: The patient is awake, alert, oriented x3, mood and affect normal. Results CBC & Chem 7: 10/12/21 06:12 10/12/21 06:12 Labs: Abnormal Lab Results - Last 24 Hours (Table) 10/11/21 10/11/21 10/11/21 Range/Units 15:44 15:44 15:44 WBC 24.8 H (3.8-10.6) k/uL RDW (11.5-14.5) % Plt Count 480 H (150-450) k/uL MPV (9.5-12.2) fL Immature Gran # (0.00-0.04) X 10*3/uL Neutrophils # 22.9 H (1.3-7.7) k/uL Lymphocytes # 0.6 L (1.0-4.8) k/uL Monocytes # (0.20-1.00) X 10*3/uL Eosinophils # (0.04-0.35) X 10*3/uL Sodium 130 L (137-145) mmol/L Potassium (3.5-5.1) mmol/L Chloride 93 L (98-107) mmol/L BUN 95 H (7-17) mg/dL Creatinine 3.08 H (0.52-1.04) mg/dL Glucose 140 H (74-99) mg/dL Hemoglobin A1c (0.0-6.0) % Calcium (8.4-10.2) mg/dL Alkaline Phosphatase 159 H (38-126) U/L Albumin 3.4 L (3.5-5.0) g/dL HDL Cholesterol (40.00-60.00) mg/dL TSH (0.350-5.500) uIU/mL Urine Appearance Turbid H (Clear) Urine Protein 1+ H (Negative) Urine Blood Small H (Negative) Ur Leukocyte Esterase Large H (Negative) Urine RBC 20 H (0-5) /hpf Urine WBC >182 H (0-5) /hpf Ur Squamous Epith Cells 10 H (0-4) /hpf Urine Bacteria Occasional H (None) /hpf Hyaline Casts 5 H (0-2) /lpf 10/12/21 10/12/21 10/12/21 Range/Units 06:12 06:12 06:12 WBC 23.20 H (3.8-10.6) k/uL RDW 15.9 H (11.5-14.5) % Plt Count (150-450) k/uL MPV 8.9 L (9.5-12.2) fL Immature Gran # 0.23 H (0.00-0.04) X 10*3/uL Neutrophils # 20.64 H (1.3-7.7) k/uL Lymphocytes # 0.72 L (1.0-4.8) k/uL Monocytes # 1.52 H (0.20-1.00) X 10*3/uL Eosinophils # 0.01 L (0.04-0.35) X 10*3/uL Sodium 136 L (137-145) mmol/L Potassium 3.2 L (3.5-5.1) mmol/L Chloride (98-107) mmol/L BUN 79 H (7-17) mg/dL Creatinine 1.80 H (0.52-1.04) mg/dL Glucose 103 H (74-99) mg/dL Hemoglobin A1c 8.0 H (0.0-6.0) % Calcium 8.1 L (8.4-10.2) mg/dL Alkaline Phosphatase (38-126) U/L Albumin (3.5-5.0) g/dL HDL Cholesterol (40.00-60.00) mg/dL TSH (0.350-5.500) uIU/mL Urine Appearance (Clear) Urine Protein (Negative) Urine Blood (Negative) Ur Leukocyte Esterase (Negative) Urine RBC (0-5) /hpf Urine WBC (0-5) /hpf Ur Squamous Epith Cells (0-4) /hpf Urine Bacteria (None) /hpf Hyaline Casts (0-2) /lpf 10/12/21 Range/Units 06:12 WBC (3.8-10.6) k/uL RDW (11.5-14.5) % Plt Count (150-450) k/uL MPV (9.5-12.2) fL Immature Gran # (0.00-0.04) X 10*3/uL Neutrophils # (1.3-7.7) k/uL Lymphocytes # (1.0-4.8) k/uL Monocytes # (0.20-1.00) X 10*3/uL Eosinophils # (0.04-0.35) X 10*3/uL Sodium (137-145) mmol/L Potassium (3.5-5.1) mmol/L Chloride (98-107) mmol/L BUN (7-17) mg/dL Creatinine (0.52-1.04) mg/dL Glucose (74-99) mg/dL Hemoglobin A1c (0.0-6.0) % Calcium (8.4-10.2) mg/dL Alkaline Phosphatase (38-126) U/L Albumin (3.5-5.0) g/dL HDL Cholesterol 28.30 L (40.00-60.00) mg/dL TSH 0.222 L (0.350-5.500) uIU/mL Urine Appearance (Clear) Urine Protein (Negative) Urine Blood (Negative) Ur Leukocyte Esterase (Negative) Urine RBC (0-5) /hpf Urine WBC (0-5) /hpf Ur Squamous Epith Cells (0-4) /hpf Urine Bacteria (None) /hpf Hyaline Casts (0-2) /lpf Microbiology - Last 24 Hours (Table) 10/11/21 15:44 Urine Culture - Preliminary Urine,Voided 10/11/21 15:44 Wound Culture - Preliminary Leg - Left Assessment and Plan (1) Cellulitis Current Visit: Yes Status: Acute Code(s): L03.90 - CELLULITIS, UNSPECIFIED SNOMED Code(s): 032554122 Plan: 1patient with bilateral lower extremity nonhealing wound and cellulitis seems to be more of a venous stasis ulcers with secondary cellulitis and likely from gram-positive skin pb less likely gram-negative infection in this patient has not seen a physician for 20 years less likelihood of a MRSA infection. 2patient with release if she is at high risk of nephrotoxicity from vancomycin. 3we will continue the patient on Unasyn 3 g every 8 hour while waiting for the culture to finalize. 4local wound care with the warm washcloths to lose her of some of those her dry scaly skin and slough. 5vascular surgery evaluation for possible surgical debridement and deep cul ture. We will follow on clinical condition and cultures to further adjust medication if needed Thank you for this consultation will follow this patient along with you
[2021-10-13] MEDS: ACETAMINOPHEN IV (For NPO) 1,000 MG in EMPTY BAG 1 BAG IVPB SCH (05:43)
[2021-10-13 07:10] LABS: HCT 38.3 % (34.0-46.0); MCHC 31.3 g/dL (31.0-37.0); MCV 89.7 fL (80.0-100.0); Mean Platelet Volume 6.9; Platelet Count 364 k/uL (150-450); RBC 4.26 m/uL (3.80-5.40); RDW 15.6 % (11.5-15.5); WBC 15.3 k/uL (3.8-10.6)
[2021-10-13 07:12] LABS: ALT 14 U/L (4-34); AST 22 U/L (14-36); African American GFR (CKD) 70 (>60 ml/min/1.73 sqM); Albumin 2.1 g/dL (3.5-5.0); Albumin/Globulin Ratio 0.7; Alkaline Phosphatase 102 U/L (38-126); Anion Gap 7 mmol/L; Blood Urea Nitrogen 60 mg/dL (7-17); Calcium 7.9 mg/dL (8.4-10.2); Carbon Dioxide 18 mmol/L (22-30); Chloride 114 mmol/L (98-107); Globulin 2.9 g/dL; Glucose 87 mg/dL (74-99); Magnesium 2.1 mg/dL (1.6-2.3); Non-African American GFR(CKD) 61 (>60 ml/min/1.73 sqM); Potassium 3.4 mmol/L (3.5-5.1); Sodium 139 mmol/L (137-145); Total Bilirubin 0.8 mg/dL (0.2-1.3)
[2021-10-13] MEDS ORDERED: POTASSIUM CHLORIDE ER 20 MEQ TAB.ER PO STA (08:11)
[2021-10-13] MEDS: HEPARIN SODIUM,PORCINE/PF 5,000 UNIT/0.5 ML SYRINGE SQ SCH ×3 (08:16→22:52)
[2021-10-13] MEDS: ATORVASTATIN 40 MG TAB PO SCH (08:25)
[2021-10-13] MEDS: CLOPIDOGREL 75 MG TAB PO SCH ×2 (08:25→17:15)
[2021-10-13] MEDS: LACTATED RINGERS 1,000 ML IV SCH ×2 (08:25→15:20)
[2021-10-13] MEDS: GABAPENTIN 100 MG CAP PO SCH ×3 (08:25→21:11)
[2021-10-13] MEDS: ASPIRIN 325 MG TAB PO SCH (08:25)
[2021-10-13] MEDS: AMPICILLIN-SULBACTAM 3 GM in SODIUM CHLORIDE 0.9% 100 ML IVPB SCH ×3 (08:26→22:52)
[2021-10-13] MEDS: MORPHINE SULFATE 4 MG/ML SYRINGE IVP PRN ×3 (08:30→22:50)
--- NOTE | 2021-10-13 09:20 | P.GSCN ---
History of Present Illness History of present illness: 66-year-old white female brought and [place] history of confusion and mental status changes patient had a CTA which showed right hemispheric stroke on the right side carotid ultrasound shows no hemodynamic stenosis bilateral common internal carotid artery. Patient has a bilateral necrotic devitalized tissue involving the both lower extremity patient has been treated at home she has america rodriguez seen a doctor for the last 20 years her white cell count is 24.8 she is on IV antibiotic under care of infectious disease Neck examination no bruit appreciated Chest is clear good and both lungs first and second sound present Abdomen soft nontender Vascular 1+ bilateral femoral patient has a necrotic wound involving the both lower extremity with difficult tissue and followed or smell noted Plan is patient needs a debridement we will discuss with anesthesia she is a candidate for for debridement of the lower extremity because patient had large right hemispheric stroke on the right side prognosis is guarded Past Medical History Additional Past Medical History / Comment(s): lower back pain History of Any Multi-Drug Resistant Organisms: None Reported Past Surgical History: Tubal Ligation Past Anesthesia/Blood Transfusion Reactions: No Reported Reaction Past Psychological History: No Psychological Hx Reported Smoking Status: Current every day smoker Past Alcohol Use History: None Reported Past Drug Use History: None Reported - Past Family History family Additional Family Medical History / Comment(s): heart disease chf Medications and Allergies Home Medications Medication Instructions Recorded Confirmed Type Ascorbic Acid [Vitamin C] 1,000 mg PO DAILY 10/11/21 10/11/21 History Cholecalciferol [Vitamin D3 (125 125 mcg PO DAILY 10/11/21 10/11/21 History Mcg = 5000 Iu)] Flaxseed Oil 1,000 mg PO DAILY 10/11/21 10/11/21 History Ibuprofen [Motrin Ib] 600 mg PO Q8H PRN 10/11/21 10/11/21 History Magnesium Oxide [Mag-Ox] 400 mg PO DAILY 10/11/21 10/11/21 History Multivitamins, Thera [Multivitamin 1 tab PO DAILY 10/11/21 10/11/21 History (formulary)] Naproxen Sodium [Aleve] 220 mg PO BID PRN 10/11/21 10/11/21 History [place]-3 Fatty Acids/Fish Oil [Fish 1 cap PO DAILY 10/11/21 10/11/21 History Oil 1,000 mg Softgel] Potassium Gluconate [Potassium 99 mg PO DAILY 10/11/21 10/11/21 History Gluconate ER] Sennosides [Ex-Lax Chew] 15 mg PO DAILY PRN 10/11/21 10/11/21 History Vitamin A [Vitamin A (8,000 Units 2,400 mcg PO DAILY 10/11/21 10/11/21 History = 2,400 MCG)] Allergies Allergy/AdvReac Type Severity Reaction Status Date / Time No Known Allergies Allergy Verified 10/11/21 20:24 Surgical - Exam Vital Signs Temp Pulse Resp BP Pulse Ox 97.6 F 62 18 98/62 97 10/11/21 14:56 10/11/21 14:56 10/11/21 14:56 10/11/21 14:56 10/11/21 14:56 Results - Labs 10/13/21 06:00 10/13/21 06:26 Abnormal Lab Results - Last 24 Hours (Table) 10/12/21 10/12/21 10/12/21 Range/Units 06:12 06:12 06:12 WBC 23.20 H (4.50-10.00) X 10*3/uL RDW 15.9 H (11.5-14.5) % MPV 8.9 L (9.5-12.2) fL Immature Gran # 0.23 H (0.00-0.04) X 10*3/uL Neutrophils # 20.64 H (1.80-7.70) X 10*3/uL Lymphocytes # 0.72 L (0.90-5.00) X 10*3/uL Monocytes # 1.52 H (0.20-1.00) X 10*3/uL Eosinophils # 0.01 L (0.04-0.35) X 10*3/uL Potassium (3.5-5.1) mmol/L Chloride (98-107) mmol/L Carbon Dioxide (22-30) mmol/L BUN (7-17) mg/dL Hemoglobin A1c 8.0 H (0.0-6.0) % Calcium (8.4-10.2) mg/dL Total Protein (6.3-8.2) g/dL Albumin (3.5-5.0) g/dL HDL Cholesterol 28.30 L (40.00-60.00) mg/dL TSH 0.222 L (0.350-5.500) uIU/mL 10/13/21 10/13/21 Range/Units 06:00 06:26 WBC 15.3 H (4.50-10.00) X 10*3/uL RDW 15.6 H (11.5-14.5) % MPV (9.5-12.2) fL Immature Gran # (0.00-0.04) X 10*3/uL Neutrophils # (1.80-7.70) X 10*3/uL Lymphocytes # (0.90-5.00) X 10*3/uL Monocytes # (0.20-1.00) X 10*3/uL Eosinophils # (0.04-0.35) X 10*3/uL Potassium 3.4 L (3.5-5.1) mmol/L Chloride 114 H (98-107) mmol/L Carbon Dioxide 18 L (22-30) mmol/L BUN 60 H (7-17) mg/dL Hemoglobin A1c (0.0-6.0) % Calcium 7.9 L (8.4-10.2) mg/dL Total Protein 5.0 L (6.3-8.2) g/dL Albumin 2.1 L (3.5-5.0) g/dL HDL Cholesterol (40.00-60.00) mg/dL TSH (0.350-5.500) uIU/mL Microbiology - Last 24 Hours (Table) 10/11/21 15:44 Gram Stain - Preliminary Leg - Left Wound Culture - Preliminary Strep pyogenes (grp a) Gram Neg Bacilli 10/11/21 15:44 Blood Culture - Preliminary Blood No Growth after 24 hours 10/11/21 15:44 Blood Culture - Preliminary Blood No Growth after 24 hours Diabetes panel 10/12/21 10/12/21 10/13/21 Range/Units 06:12 06:12 06:26 Sodium 139 (137-145) mmol/L Potassium 3.4 L (3.5-5.1) mmol/L Chloride 114 H (98-107) mmol/L Carbon Dioxide 18 L (22-30) mmol/L BUN 60 H (7-17) mg/dL Creatinine 0.96 (0.52-1.04) mg/dL Glucose 87 (74-99) mg/dL Hemoglobin A1c 8.0 H (0.0-6.0) % Calcium 7.9 L (8.4-10.2) mg/dL AST 22 (14-36) U/L ALT 14 (4-34) U/L Alkaline Phosphatase 102 (38-126) U/L Total Protein 5.0 L (6.3-8.2) g/dL Albumin 2.1 L (3.5-5.0) g/dL Triglycerides 146.00 (0.00-149.00) mg/dL HDL Cholesterol 28.30 L (40.00-60.00) mg/dL Thyroid panel 10/12/21 Range/Units 06:12 TSH 0.222 L (0.350-5.500) uIU/mL Calcium panel 10/13/21 Range/Units 06:26 Calcium 7.9 L (8.4-10.2) mg/dL Albumin 2.1 L (3.5-5.0) g/dL Pituitary panel 10/12/21 10/13/21 Range/Units 06:12 06:26 Sodium 139 (137-145) mmol/L Potassium 3.4 L (3.5-5.1) mmol/L Chloride 114 H (98-107) mmol/L Carbon Dioxide 18 L (22-30) mmol/L BUN 60 H (7-17) mg/dL Creatinine 0.96 (0.52-1.04) mg/dL Glucose 87 (74-99) mg/dL Calcium 7.9 L (8.4-10.2) mg/dL TSH 0.222 L (0.350-5.500) uIU/mL Adrenal panel 10/13/21 Range/Units 06:26 Sodium 139 (137-145) mmol/L Potassium 3.4 L (3.5-5.1) mmol/L Chloride 114 H (98-107) mmol/L Carbon Dioxide 18 L (22-30) mmol/L BUN 60 H (7-17) mg/dL Creatinine 0.96 (0.52-1.04) mg/dL Glucose 87 (74-99) mg/dL Calcium 7.9 L (8.4-10.2) mg/dL Total Bilirubin 0.8 (0.2-1.3) mg/dL AST 22 (14-36) U/L ALT 14 (4-34) U/L Alkaline Phosphatase 102 (38-126) U/L Total Protein 5.0 L (6.3-8.2) g/dL Albumin 2.1 L (3.5-5.0) g/dL
[2021-10-13] MEDS ORDERED: IV FLUID CONTINUATION 800 ML IV ONE (12:18)
[2021-10-13] MEDS ORDERED: DEXTROSE 50% SYRINGE 50 ML IVP ONE ×2 (12:37→13:11)
[2021-10-13 12:38] LABS: Glucose,Whole Blood 58 mg/dL (75-99)
--- NOTE | 2021-10-13 12:51 | CONS ---
CONSULTATION CHIEF COMPLAINT: Preoperative cardiac evaluation. Mirela is a 66-year-old lady with no significant past medical history who presented to hospital with symptoms of confusion, bilateral cellulitis and mild hypotension. She was found to have had CVA and as part of her workup underwent an echocardiogram that showed LV systolic dysfunction and evidence of small prior inferior wall myocardial infarction. I have been consulted for preoperative cardiac evaluation. She has severe bilateral cellulitis and is to undergo bilateral debridement by Dr. Cameron. Patient is pleasantly confused and I am not not able to obtain any information from her. I spoke to the patient's at length. I am told that there is no history of coronary artery disease or congestive heart failure, there is no prior history of hypertension, diabetes, dyslipidemia. She has had bilateral lower extremity cellulitis for several months and patient has not sought any medical care. She is someone who does not see physicians and usually takes natural supplements. PAST MEDICAL HISTORY: Negative for hypertension, diabetes, dyslipidemia. MEDICATIONS: Medications included vitamins. ALLERGIES: There are NO KNOWN DRUG ALLERGIE. Family history, social history and review of systems: I am unable to obtain from the patient, who is confused. PHYSICAL EXAMINATION: Comfortable at rest. Afebrile. Heart rate is . Blood pressure is 90/56, respiratory rate is 18, O2 saturation is 94% on 2 L. There is no jugular venous distention. Carotid upstroke is normal. There is no bruit. Chest exam reveals good air entry bilaterally. Heart exam reveals first and second heart sounds. No gallop. There is a systolic murmur at the left lower sternal border. Abdomen is soft. Examination of extremities reveals bilateral severe cellulitis, excoriation and of the skin with palpable pulses. LABS: The white cell count is elevated at 15; it was 24 when she came in. Hemoglobin is normal. Potassium is 3.4. Creatinine was elevated at 3 but has improved to 0.9. EKG has not been done. An echocardiogram showed moderate LV systolic dysfunction with an ejection fraction of 45% with evidence of inferoseptal hypokinesis. ASSESSMENT: 1. Preoperative cardiac evaluation. 2. Recent cerebrovascular accident. 3. Bilateral lower extremity cellulitis. 4. Ischemic cardiomyopathy. PLAN: I will obtain an EKG. Patient is at increased risk for perioperative cardiac events, including myocardial infarction, extension of stroke or . However, if she needs the wound debridement and would benefit from it, please proceed with it. Patient seems septic. She is confused with severely elevated white cell count. She is currently on optimal therapy, including aspirin, Lipitor, Plavix. If her blood pressure improves after the debridement, consider adding an CRISTOFER inhibitor and a beta kiersten. I am not quite sure if this is someone who is going to follow up in the office, but if she does, we will consider an outpatient stress test. I discussed these issues at great length with her . He understands and is in agreement with the plan. KARI / ROSA: [id number] /
[2021-10-13 12:59] LABS: Glucose,Whole Blood 73 mg/dL (75-99)
[2021-10-13] MEDS ORDERED: MIDAZOLAM 2 MG/2 ML VIAL ONE (13:15)
[2021-10-13] MEDS ORDERED: SUCCINYLCHOLINE CHLORIDE 200 MG/10 ML VIAL IV ONE (13:15)
[2021-10-13] MEDS ORDERED: PROPOFOL 10 MG/ML 20 ML VIAL IV ONE (13:15)
[2021-10-13] MEDS ORDERED: fentaNYL (PF) 50 MCG/ML 2 ML AMP ONE (13:15)
[2021-10-13 14:41] LABS: Glucose,Whole Blood 125 mg/dL (75-99)
[2021-10-13] MEDS ORDERED: MEPERIDINE 50 MG/ML SYRINGE IVP ONE (15:01)
--- NOTE | 2021-10-13 18:37 | P.PN ---
Subjective Progress Note Date: 10/13/21 (delayed charting seen at 0830) Principal diagnosis: wounds Patient is a 66 yo female with low back pain who has not seen a doctor in years who was sent in by Dr. Jones for lower extremity wounds. She was found to have cellulitis with sepsis, ZANDER, and thrombocytosis. Her UA demonstrated bacturia. Her Head CT showed multilevel cervical spondolytic changes and left middle cerebral artery subacute infarct and chronic small vessel ischemic changes. She was started on antibiotics and IV fluids. Patient seen and examined at bedside. and daughter at bedside. c/o pain in legs, no chest , no shortness of breath, still very scared and anxious--reassurance offered. Discussed results of echo, A1C, carotid dopplers. Daughter is at bedside and all questions were answered. General: ill appearing, no distress, appears at stated age Derm: bilateral lower extremites with erythema, warmth, edema with necrotic areas over bilateral bustillos and areas of bleeding, purulent drainage Head: atraumatic, normocephalic, symmetric Eyes: EOMI, no lid lag, anicteric sclera Mouth: no lip lesion, mucus membranes moist Cardiovascular: S1S2 tachy, no murmur, positive posterior tibial pulse bilateral, Lungs: Course bs bilateral, no rhonchi, no rales , no accessory muscle use Abdominal: soft, nontender to palpation, no guarding, no appreciable organomegaly Ext: no gross muscle atrophy, no edema, no contractures Neuro: CN II-XI grossly intact, no focal neuro deficits Psych: Alert, oriented, upset, tearful and anxious Assessment/Plan: Bilateral Lower extremity cellultis with chronic wounds - spent time removing dressings from bilateral lower extremities with saline and sterile water - Dr. Penaloza recs appreciated - pain control - morphine, norco, and neurontin - unasyn - blood cultures negative to date - likely when pain improved will need doppler to asses blood flow. - vascular rec: s/p debridement today DM, newly discovered - SSI - follow BS - Anticipate metformin on discharge Hyperchloremic Metabolic Acidosis - change to lactated ringers - repeat labs in AM Subacute Left MCA CVA - ASA, statin, plavix - echo with depressed EF - carotid us normal - lipid profile - neuro recs Cardiomyopathy - EF 40-45% - Grade 1 diastolic dysfunction - hypokensis - Cardio recs appreciated: BB and ACEI when BP stable, outpatient stress test Hallucinations - prn haldol - psych recs appreciated - supportive environment UTI - on unasyn - await cultures to finalize ZANDER, resolved DVT prophylaxis: Lovenox Discussed with: Patient, nursing, daughter, Hsband Anticipated discharge: pending clinical course Anticipated discharge place: home A total of 65 minutes was spent on the care of this complex patient more than 50% of the time was spent in counseling and care coordination. Objective - Vital Signs Vital signs: Vital Signs Temp 98.8 F 10/13/21 16:00 Pulse 56 L 10/13/21 16:00 Resp 20 10/13/21 16:00 BP 112/57 10/13/21 16:00 Pulse Ox 97 10/13/21 16:00 Intake & Output 10/12/21 10/13/21 10/13/21 18:59 06:59 18:59 Intake Total 900 1100 1750 Output Total 1000 350 Balance 943 [id number] Intake: IV 850 Intake, IV Titration 900 1100 900 Amount ACETAMINOPHEN IV (For NPO 100 ) 1,000 mg In Empty Bag 1 bag @ 400 mls/hr IVPB Q6HR [facility] Rx#:[id number] Ampicillin-Sulbactam 3 gm 100 In Sodium Chloride 0.9% 100 ml @ 200 mls/hr IVPB Q8HR [facility] Rx#:[id number] Sodium Chloride 0.9% 1, 900 900 900 000 ml @ 75 mls/hr IV . [id number] [facility] Rx#:[id number] Output: Urine 1000 300 Estimated Blood Loss 50 Other: Voiding Method Incontinent Incontinent Incontinent External Catheter - Labs CBC & Chem 7: 10/13/21 06:00 10/13/21 06:26 Labs: Abnormal Lab Results - Last 24 Hours (Table) 10/13/21 10/13/21 10/13/21 Range/Units 06:00 06:26 12:32 WBC 15.3 H (3.8-10.6) k/uL RDW 15.6 H (11.5-15.5) % Potassium 3.4 L (3.5-5.1) mmol/L Chloride 114 H (98-107) mmol/L Carbon Dioxide 18 L (22-30) mmol/L BUN 60 H (7-17) mg/dL POC Glucose (mg/dL) 58 L (75-99) mg/dL Calcium 7.9 L (8.4-10.2) mg/dL Total Protein 5.0 L (6.3-8.2) g/dL Albumin 2.1 L (3.5-5.0) g/dL 10/13/21 10/13/21 Range/Units 12:57 14:39 WBC (3.8-10.6) k/uL RDW (11.5-15.5) % Potassium (3.5-5.1) mmol/L Chloride (98-107) mmol/L Carbon Dioxide (22-30) mmol/L BUN (7-17) mg/dL POC Glucose (mg/dL) 73 L 125 H (75-99) mg/dL Calcium (8.4-10.2) mg/dL Total Protein (6.3-8.2) g/dL Albumin (3.5-5.0) g/dL Microbiology - Last 24 Hours (Table) 10/11/21 15:44 Blood Culture - Preliminary Blood No Growth after 48 hours 10/11/21 15:44 Blood Culture - Preliminary Blood No Growth after 48 hours 10/11/21 15:44 Urine Culture - Preliminary Urine,Voided Gram Neg Bacilli 10/11/21 15:44 Gram Stain - Preliminary Leg - Left Wound Culture - Preliminary Strep pyogenes (grp a) Gram Neg Bacilli
[2021-10-13] MEDS: HYDROcodone/APAP 5-325MG 1 EACH TAB PO PRN (19:24)
[2021-10-14 05:48] LABS: Anisocytosis Slight; HCT 32.3 % (34.0-46.0); HGB 10.4 gm/dL (11.4-16.0); MCH 28.6 pg (25.0-35.0); MCV 89.3 fL (80.0-100.0); Mean Platelet Volume 6.8; Platelet Count 411 k/uL (150-450); RBC 3.62 m/uL (3.80-5.40); RDW 16.1 % (11.5-15.5); WBC 11.9 k/uL (3.8-10.6)
[2021-10-14 06:03] LABS: African American GFR (CKD) >90 (>60 ml/min/1.73 sqM); Anion Gap 5 mmol/L; Blood Urea Nitrogen 33 mg/dL (7-17); Calcium 7.8 mg/dL (8.4-10.2); Carbon Dioxide 24 mmol/L (22-30); Chloride 111 mmol/L (98-107); Glucose 87 mg/dL (74-99); Non-African American GFR(CKD) 79 (>60 ml/min/1.73 sqM); Potassium 3.4 mmol/L (3.5-5.1); Sodium 140 mmol/L (137-145)
[2021-10-14] MEDS: MORPHINE SULFATE 4 MG/ML SYRINGE IVP PRN ×3 (06:54→15:46)
[2021-10-14] MEDS: AMPICILLIN-SULBACTAM 3 GM in SODIUM CHLORIDE 0.9% 100 ML IVPB SCH (08:03)
[2021-10-14] MEDS: HEPARIN SODIUM,PORCINE/PF 5,000 UNIT/0.5 ML SYRINGE SQ SCH ×3 (08:03→23:15)
[2021-10-14] MEDS: ATORVASTATIN 40 MG TAB PO SCH (08:03)
[2021-10-14] MEDS: CLOPIDOGREL 75 MG TAB PO SCH (08:03)
[2021-10-14] MEDS: ASPIRIN 325 MG TAB PO SCH (08:03)
[2021-10-14] MEDS: GABAPENTIN 100 MG CAP PO SCH ×3 (08:03→21:39)
[2021-10-14] MEDS ORDERED: POTASSIUM CHLORIDE ER 20 MEQ TAB.ER PO STA (08:13)
[2021-10-14] MEDS ORDERED: bisacodyL 5 MG TABLET.DR PO PRN (08:37)
--- NOTE | 2021-10-14 13:12 | OP ---
OPERATIVE REPORT PREOPERATIVE DIAGNOSIS: Wounds, right and left lower extremities, with skin necrosis and devitalized tissue. Measurement: length is 16 cm circumferentially involving both lower extremities for the last 3 months. POSTOPERATIVE DIAGNOSIS: Wounds, right and left lower extremities, with skin necrosis and devitalized tissue. Measurement: length is 16 cm circumferentially involving both lower extremities for the last 3 months. PROCEDURE: Extensive debridement of the right and left extremity wounds down to subcutaneous fat and excision of all devitalized tissue. PROCEDURE DESCRIPTION: The patient was brought to the operating room. Under general anesthesia, both legs were prepped and draped in usual sterile manner. The patient has these wounds for the last 3 months and has been treating them at home. The skin was all necrotic with devitalized tissue underneath. Using a sharp knife, we did the right leg first. We excised all the devitalized tissue circumferentially of the right leg and deep culture was sent for culture. There were some bleeding points which were electrocoagulated. All the devitalized tissue and skin was excised. Then the right leg was cleaned with hydrogen peroxide and saline. Hemostasis was controlled. Then attention was directed to the left lower extremity. The patient had a similar wound on the left lower extremity circumferentially. Measurement on the left leg was 15 cm long and went circumferentially on anterior and posterior aspects of the lower leg. Using a sharp knife, we excised the devitalized tissue, including the skin necrosis. All the necrotic skin was excised and also the subcutaneous tissue and fat were also excised. There were some bleeding points which were electrocoagulated. Wound was copiously irrigated with hydrogen peroxide and saline. Medihoney gel was applied to both lower extremities and pressure dressings were applied. Patient tolerated the procedure well and was transferred to the recovery room in satisfactory condition. MMODL / IJN: [id number] /
--- NOTE | 2021-10-14 14:35 | P.PN ---
Progress Note - Text Progress Note Date: 10/14/21 Interval History: Patient was seen resting in her chair with her Christopher present. Currently, the patient does appear to endorse auditory hallucinations and visual hallucinations. She states that she is seeing shadow people and is hearing multiple voices. She appears to be disorganized and has difficulty in orientation. However, she was agreeable to the psychiatric interview with her present. She did endorse suicidal ideation however would not expand. She denies any homicidal ideation. As per discussion with the patient and her , the patient's believes that the patient's current presentation is secondary to the acute stressors of medical deterioration, hospitalization, as well as the loss of 2 of her sons in the hospital. This provider discussed at length the initiation of antipsychotic medications to address acute psychotic symptoms however the patient and her are currently refusing any psychotropic medications at this time. The states that he would like the medications to be as needed only and will request the medication from nursing if necessary. He reports that the patient has been presenting very well to him prior to this psychiatrist seeing her in the room. The patient's reports that the patient has not had any psychiatric history prior to this admission. Mental Status Exam: General Appearance: Patient appears to be stated age is difficult to direct and intermittently cooperative. Behavior: Patient is seated Christopher displays elevated psychomotor activity. Speech: Patient's speech is fluent, however nonsensical and difficult to follow. Mood/Affect: Mood is "very anxious." Affect is dysphoric and disorganized. Suicidality/Homicidality: Patient endorses suicidal ideation however denies any homicidal ideation. Perceptions: Patient endorses both auditory and visual hallucinations. Though content/process: The patient appears to respond to some internal stimuli. Memory and concentration: Grossly poor. Judgment and insight: Grossly poor. Vital Signs Temp 98.8 F 10/14/21 13:00 Pulse 77 10/14/21 13:00 Resp 15 10/14/21 13:00 BP 78/52 10/14/21 13:00 Pulse Ox 88 L 10/14/21 13:00 Intake & Output 10/13/21 10/14/21 10/14/21 18:59 06:59 18:59 Intake Total 1750 600 810 Output Total 350 1100 Balance 1400 -500 810 Intake: IV 850 Intake, IV Titration 900 600 Amount Lactated Ringers 1,000 ml 600 @ 50 mls/hr IV .Q20H [facility] Rx#:[id number] Sodium Chloride 0.9% 1, 900 000 ml @ 75 mls/hr IV . [id number] [facility] Rx#:[id number] Oral 810 Output: Urine 300 1100 Estimated Blood Loss 50 Other: Voiding Method Incontinent Indwelling Catheter Indwelling Catheter External Catheter Laboratory Results - Last 24 Hours 10/13/21 10/14/21 10/14/21 14:39 05:15 05:15 WBC 11.9 H RBC 3.62 L Hgb 10.4 L Hct 32.3 L MCV 89.3 MCH 28.6 MCHC 32.0 RDW 16.1 H Plt Count 411 MPV 6.8 Anisocytosis Slight Sodium 140 Potassium 3.4 L Chloride 111 H Carbon Dioxide 24 Anion Gap 5 BUN 33 H Creatinine 0.78 Est GFR (CKD-EPI)AfAm >90 Est GFR (CKD-EPI)NonAf 79 Glucose 87 POC Glucose (mg/dL) 125 H POC Glu Neuroscientist ID Tito Obregon Calcium 7.8 L Assessment Acute psychosis vs Delirium Plan: -Continue medical management. -Currently, the patient and her are agreeable to starting any antipsychotic medications. This provider discussed at length the role of antipsychotic medications including the risks, benefits, and treatment alternatives. We discussed at length the black box warning of increased risk of cardiac events with antipsychotic medications and her age group. -Currently, the patient does not meet criteria for inpatient psychiatric hospitalization as she has numerous medical issues that may be contributed to her current presentation. Patient's at this time does not believe that there is any acute psychiatric pathology that needs to be addressed at this time. He is agreeable to keeping the medication as needed. -Continue Haldol when necessary for acute psychosis. Continue to monitor for EPS, tardive dyskinesia, akathisia, QTC prolongation with antipsychotic administration.
[2021-10-14] MEDS: PIPERACILLIN-TAZOBACTAM 3.375 GM in SODIUM CHLORIDE 0.9% 100 ML IVPB SCH ×2 (15:36→23:14)
--- NOTE | 2021-10-14 17:30 | PN ---
PROGRESS NOTE Mirela Melgar is a 66-year-old white female. The patient had extensive debridement of both lower extremities for skin necrosis and devitalized tissue. The patient is on IV antibiotics under the care of Infectious Disease. Today we have changed the dressing. We will use Aquacel Silver and patient will change the dressing on Thursday. MMODL / IJN: [id number] /
[2021-10-14] MEDS ORDERED: ACETAMINOPHEN IV (For NPO) 1,000 MG in EMPTY BAG 1 BAG IVPB STA (18:01)
--- NOTE | 2021-10-14 19:02 | P.PN ---
Subjective Progress Note Date: 10/14/21 (delayed charting seen at 0845) Principal diagnosis: wounds Patient is a 66 yo female with low back pain who has not seen a doctor in years who was sent in by Dr. Jones for lower extremity wounds. She was found to have cellulitis with sepsis, ZANDER, and thrombocytosis. Her UA demonstrated bacturia. Her Head CT showed multilevel cervical spondolytic changes and left middle cerebral artery subacute infarct and chronic small vessel ischemic changes. She was started on antibiotics and IV fluids. She was seen by infectious disease who recommended department by vascular surgery which was completed on 10/13. Her echo also demonstrated an ejection fraction of 40-45% and cardiology was consulted. Her A1c was noted to be elevated. She did struggle with hallucinations during her hospital stay. Patient seen and examined at bedside. and daughter at bedside. We discussed that she needs to sit in the chair today and start moving, she is reluctant to get out of bed due to pain. She has pain with the slightest movement of her legs. No chest pain, no shortness of breath. She knows that she needs to follow with doctors on discharge. General: ill appearing, no distress, appears at stated age Derm: bilateral lower extremites wounds with dressing in place, more skin sloughing of the feet. Head: atraumatic, normocephalic, symmetric Eyes: EOMI, no lid lag, anicteric sclera Mouth: no lip lesion, mucus membranes moist Cardiovascular: S1S2 tachy, no murmur, positive posterior tibial pulse bilateral, Lungs: Course bs bilateral, no rhonchi, no rales , no accessory muscle use Abdominal: soft, nontender to palpation, no guarding, no appreciable organome elena Ext: no gross muscle atrophy, no edema, no contractures Neuro: CN II-XI grossly intact, no focal neuro deficits Psych: Alert, oriented, upset, tearful and anxious, still seeing the shadows Assessment/Plan: polymicrobial Bilateral Lower extremity cellultis with chronic wounds - ID recs appreciated - pain control - morphine, norco, and neurontin - zosyn - blood cultures negative to date - likely when pain improved will need doppler to asses blood flow. - vascular rec: s/p debridement DM, newly discovered - SSI - follow BS - Anticipate metformin on discharge - A1C 8 Hyperchloremic Metabolic Acidosis - improving - lactated ringers - repeat labs in AM Subacute Left MCA CVA - ASA, statin, plavix - echo with depressed EF - carotid us normal - lipid profile - neuro recs Cardiomyopathy - EF 40-45% - Grade 1 diastolic dysfunction - hypokensis - Cardio recs appreciated: BB and ACEI when BP stable, outpatient stress test Hallucinations - prn haldol - psych recs appreciated, case discussed with Dr. Thomas at length. - supportive environment UTI - on unasyn - await cultures to finalize ZANDER, resolved DVT prophylaxis: Lovenox Discussed with: Patient, nursing, daughter, Anticipated discharge: pending clinical course Anticipated discharge place: home A total of 35 minutes was spent on the care of this complex patient more than 50% of the time was spent in counseling and care coordination. Active Medications Generic Name Dose Route Start Last Admin Trade Name Freq PRN Reason Stop Dose Admin Hydrocodone Bitart/Acetaminophen 1 each 10/12/21 13:10 10/13/21 19:24 Hydrocodone/Apap 5-325mg 1 Each Tab PO 1 each Q6HR PRN Administration Pain Aspirin 325 mg 10/12/21 09:00 10/14/21 08:03 Aspirin 325 Mg Tab PO 325 mg DAILY [facility] Administration Atorvastatin Calcium 40 mg 10/12/21 09:00 10/14/21 08:03 Atorvastatin 40 Mg Tab PO 40 mg DAILY [facility] Administration Bisacodyl 5 mg 10/14/21 08:37 10/14/21 09:20 Bisacodyl 5 Mg Tablet. PO 5 mg DAILY PRN Administration Constipation Clopidogrel Bisulfate 75 mg 10/13/21 09:00 10/14/21 08:03 Clopidogrel 75 Mg Tab PO 75 mg DAILY [facility] Administration Gabapentin 100 mg 10/12/21 16:00 10/14/21 15:37 Gabapentin 100 Mg Cap PO 100 mg TID [facility] Administration Haloperidol Lactate 2 mg 10/12/21 08:57 Haloperidol Lactate 5 Mg/Ml 1 Ml Vial IM Q4HR PRN Agitation or Acute Psychosis Heparin Sodium (Porcine) 5,000 unit 10/12/21 08:00 10/14/21 15:37 Heparin Sodium,Porcine/Pf 5,000 Unit/0.5 Ml Syringe SQ 5,000 unit Q8HR [facility] Administration Lactated Ringer's 1,000 mls @ 50 mls/hr 10/13/21 08:15 10/13/21 15:20 Lactated Ringers IV 100 mls .Q20H [facility] Administration Piperacillin Sod/Tazobactam 100 mls @ 25 mls/hr 10/14/21 16:00 10/14/21 15:36 Sod 3.375 gm/ Sodium Chloride IVPB 25 mls/hr Q8HR [facility] Administration Morphine Sulfate 4 mg 10/12/21 08:57 10/14/21 15:46 Morphine Sulfate 4 Mg/Ml Syringe IVP 4 mg Q4HR PRN Administration Pain Naloxone HCl 0.2 mg 10/11/21 19:44 Naloxone 0.4 Mg/Ml 1 Ml Vial IV Q2M PRN Opioid Reversal Objective - Vital Signs Vital signs: Vital Signs Temp 98.8 F 10/14/21 13:00 Pulse 99 10/14/21 16:18 Resp 20 10/14/21 16:18 BP 98/65 10/14/21 16:18 Pulse Ox 92 L 10/14/21 16:18 Intake & Output 10/13/21 10/14/21 10/14/21 18:59 06:59 18:59 Intake Total 1431 215 8547 Output Total 350 1100 Balance 1400 -500 1350 Intake: IV 850 Intake, IV Titration 900 600 Amount Lactated Ringers 1,000 ml 600 @ 50 mls/hr IV .Q20H [facility] Rx#:[id number] Sodium Chloride 0.9% 1, 900 000 ml @ 75 mls/hr IV . [id number] [facility] Rx#:[id number] Oral 1350 Output: Urine 300 1100 Estimated Blood Loss 50 Other: Voiding Method Incontinent Indwelling Catheter Indwelling Catheter External Catheter - Labs CBC & Chem 7: 10/14/21 05:15 10/14/21 05:15 Labs: Abnormal Lab Results - Last 24 Hours (Table) 10/14/21 10/14/21 Range/Units 05:15 05:15 WBC 11.9 H (3.8-10.6) k/uL RBC 3.62 L (3.80-5.40) m/uL Hgb 10.4 L (11.4-16.0) gm/dL Hct 32.3 L (34.0-46.0) % RDW 16.1 H (11.5-15.5) % Potassium 3.4 L (3.5-5.1) mmol/L Chloride 111 H (98-107) mmol/L BUN 33 H (7-17) mg/dL Calcium 7.8 L (8.4-10.2) mg/dL Microbiology - Last 24 Hours (Table) 10/11/21 15:44 Blood Culture - Preliminary Blood No Growth after 72 hours 10/11/21 15:44 Blood Culture - Preliminary Blood No Growth after 72 hours 10/11/21 15:44 Urine Culture - Final Urine,Voided Escherichia coli 10/11/21 15:44 Gram Stain - Preliminary Leg - Left Wound Culture - Preliminary Strep pyogenes (grp a) Pseudomonas aeruginosa Gram Neg Bacilli Presumptive Staph aureus 10/13/21 14:20 Gram Stain - Preliminary Leg - Right Tissue Culture - Preliminary 10/13/21 14:20 Anaerobic Culture - Preliminary Leg - Right 10/13/21 14:20 Fungal Culture - Preliminary Leg - Right
--- NOTE | 2021-10-14 19:21 | P.PN ---
Subjective Progress Note Date: 10/14/21 Patient is a 66-year-old female admitted to the hospital for leg wounds. She has bilateral leg wounds, that have been weeping. Lately she has been falling and bumped her head. Patient underwent debridement of the wounds yesterday. Patient's was also present, who states that patient lives with her . She does not have any deficits otherwise. She walks by herself, does not use any assistive device. She has been complaining of a lot of pain in her legs. Because of her falls, she underwent a routine computed tomography scan of the head, which incidentally revealed subacute right parietal infarct. Patient also has toxic metabolic encephalopathy from UTI and perhaps pain medication. Patient was not taking any antiplatelet medication at home. CT head revealed right middle cerebral artery distribution subacute infarct, involving the right parietal temporal region. Patchy white matter hypodensity consistent with chronic small vessel ischemia. I personally reviewed computed tomography scan of the head and agree with the findings. Patient has smoked half pack per day for 40-50 years. This lately she has stopped. She has been diagnosed with diabetes while in this hospital, as her hemoglobin A1c is 8. No previous history of diabetes. Objective - Vital Signs Vital signs: Vital Signs Temp 98.8 F 10/14/21 13:00 Pulse 99 10/14/21 16:18 Resp 20 10/14/21 16:18 BP 98/65 10/14/21 16:18 Pulse Ox 92 L 10/14/21 16:18 Intake & Output 10/13/21 10/14/21 10/14/21 18:59 06:59 18:59 Intake Total 1750 600 810 Output Total 350 1100 Balance 1400 -500 810 Intake: IV 850 Intake, IV Titration 900 600 Amount Lactated Ringers 1,000 ml 600 @ 50 mls/hr IV .Q20H [facility] Rx#:[id number] Sodium Chloride 0.9% 1, 900 000 ml @ 75 mls/hr IV . [id number] [facility] Rx#:[id number] Oral 810 Output: Urine 300 1100 Estimated Blood Loss 50 Other: Voiding Method Incontinent Indwelling Catheter Indwelling Catheter External Catheter - Exam Patient appears obviously delirious, shaky, restless, hyperactive. She frequently cries, that no one to touch her feet or legs. Patient's family states that she is fairly well oriented. Patient did not cooperate with me. Cranial nerve examination revealed pupils are round and reacting, visual florence revealed left-sided visual field neglect versus hemianopsia. Her face is symmetric. On muscle strength testing there is no pronator drift and the strength is normal in arms distally and proximally. Patient did not let me check her legs. Her both legs are in bandages. Sensory examination also revealed some left-sided sensory neglect on double simultaneous stimulation. - Labs CBC & Chem 7: 10/14/21 05:15 10/14/21 05:15 Labs: Abnormal Lab Results - Last 24 Hours (Table) 10/14/21 10/14/21 Range/Units 05:15 05:15 WBC 11.9 H (3.8-10.6) k/uL RBC 3.62 L (3.80-5.40) m/uL Hgb 10.4 L (11.4-16.0) gm/dL Hct 32.3 L (34.0-46.0) % RDW 16.1 H (11.5-15.5) % Potassium 3.4 L (3.5-5.1) mmol/L Chloride 111 H (98-107) mmol/L BUN 33 H (7-17) mg/dL Calcium 7.8 L (8.4-10.2) mg/dL Microbiology - Last 24 Hours (Table) 10/11/21 15:44 Urine Culture - Final Urine,Voided Escherichia coli 10/11/21 15:44 Gram Stain - Preliminary Leg - Left Wound Culture - Preliminary Strep pyogenes (grp a) Pseudomonas aeruginosa Gram Neg Bacilli Presumptive Staph aureus 10/13/21 14:20 Gram Stain - Preliminary Leg - Right Tissue Culture - Preliminary 10/13/21 14:20 Anaerobic Culture - Preliminary Leg - Right 10/13/21 14:20 Fungal Culture - Preliminary Leg - Right 10/11/21 15:44 Blood Culture - Preliminary Blood No Growth after 48 hours 10/11/21 15:44 Blood Culture - Preliminary Blood No Growth after 48 hours Assessment and Plan Assessment: 1. Large, subacute, right cerebral hemispheric infarct, involving the right parietal temporal region-patient does have some left-sided visual field deficits and left rai-sensory neglect. 2. Toxic encephalopathy/delirium secondary to infection 3. Acute UTI. Urine cultures growing E. coli. 4. New onset diabetes 5. Tobacco use 6. Weeping ulcers of the lower extremities, status post debridement Plan: 1. Agree with recommendation of Dr. Schwartz with Dual antiplatelet therapy, with aspirin 81 mg and Plavix 75 mg daily for 21 days, then continue with aspirin monotherapy. Patient was not taking any antiplatelet medication at home. 2. High-dose statin initiated with Lipitor 40 mg daily. 3. 2-D echocardiogram revealed inferoseptal hypokinesis or aortic sclerosis with mild aortic stenosis and mild mitral and mild to moderate tricuspid regurgitation. EF is 40-45%. Grade 1 diastolic dysfunction. Mid to basal inferoseptal is hypokinetic. 4. Check MRA of the brain evaluate for intracranial stenosis or cerebral aneurysm 5. Carotid Doppler revealed no significant common or internal carotid artery stenosis. Antegrade flow in the left vertebral artery. Unable to identify flow on the right side 6. PT, OT and speech therapy evaluations. Lipid panel cholesterol 159, LDL 101, HDL 28.3 and triglycerides 146, continue Lipitor 40 mg daily. Patient's hemoglobin A1c 8.0. Recommend optimize control of diabetes to target A1c <7.0. TSH slightly low 0.222 with normal free T4 1 0.63. 7. UA shows large amount of leukocyte Estrace. Urine growing E. coli. Patient currently on Zosyn 8. Discussed with family in detail.
[2021-10-14] MEDS: LACTATED RINGERS 1,000 ML IV SCH (23:19)
--- NOTE | 2021-10-14 23:37 | P.PN ---
Subjective Progress Note Date: 10/13/21 Principal diagnosis: Bilateral lower extremity venous stasis ulcer and cellulitis Patient is a 66-year-old female who has not seen a physician in 20 years presented to the hospital with significant bilateral lower extremity necrotic wound and secondary cellulitis in this patient who is status post surgical debridement of these wounds in the OR on 10/13/2021. On today's evaluation that is 10/13/2021, the patient is slowly recovering from anesthesia and is slightly sleepy, denies having any chest pain shortness breath or cough no abdominal pain and pain control extremity is currently controlled Objective - Vital Signs Vital signs: Vital Signs Temp 98.0 F 10/13/21 14:31 Pulse 98 10/13/21 15:00 Resp 20 10/13/21 15:00 BP 150/72 10/13/21 15:00 Pulse Ox 95 10/13/21 15:00 Intake & Output 10/12/21 10/13/21 10/13/21 18:59 06:59 18:59 Intake Total 900 1100 700 Output Total 1000 350 Balance 900 100 350 Intake: IV 700 Intake, IV Titration 900 1100 Amount ACETAMINOPHEN IV (For NPO 100 ) 1,000 mg In Empty Bag 1 bag @ 400 mls/hr IVPB Q6HR [facility] Rx#:[id number] Ampicillin-Sulbactam 3 gm 100 In Sodium Chloride 0.9% 100 ml @ 200 mls/hr IVPB Q8HR [facility] Rx#:[id number] Sodium Chloride 0.9% 1, 900 900 000 ml @ 75 mls/hr IV . [id number] [facility] Rx#:[id number] Output: Urine 1000 300 Estimated Blood Loss 50 Other: Voiding Method Incontinent Incontinent Incontinent External Catheter - Exam GENERAL DESCRIPTION: An elderly female lying in bed in no distress RESPIRATORY SYSTEM: Unlabored breathing , decreased breath sounds at bases HEART: S1 S2 regular rate and rhythm , ABDOMEN: Soft , no tenderness EXTREMITIES: Bilateral lower extremity wounds are currently dressed no drainage on the dressing - Labs CBC & Chem 7: 10/14/21 05:15 10/14/21 05:15 Labs: Abnormal Lab Results - Last 24 Hours (Table) 10/13/21 10/13/21 10/13/21 Range/Units 06:00 06:26 12:32 WBC 15.3 H (3.8-10.6) k/uL RDW 15.6 H (11.5-15.5) % Potassium 3.4 L (3.5-5.1) mmol/L Chloride 114 H (98-107) mmol/L Carbon Dioxide 18 L (22-30) mmol/L BUN 60 H (7-17) mg/dL POC Glucose (mg/dL) 58 L (75-99) mg/dL Calcium 7.9 L (8.4-10.2) mg/dL Total Protein 5.0 L (6.3-8.2) g/dL Albumin 2.1 L (3.5-5.0) g/dL 10/13/21 10/13/21 Range/Units 12:57 14:39 WBC (3.8-10.6) k/uL RDW (11.5-15.5) % Potassium (3.5-5.1) mmol/L Chloride (98-107) mmol/L Carbon Dioxide (22-30) mmol/L BUN (7-17) mg/dL POC Glucose (mg/dL) 73 L 125 H (75-99) mg/dL Calcium (8.4-10.2) mg/dL Total Protein (6.3-8.2) g/dL Albumin (3.5-5.0) g/dL Microbiology - Last 24 Hours (Table) 10/11/21 15:44 Urine Culture - Preliminary Urine,Voided Gram Neg Bacilli 10/11/21 15:44 Gram Stain - Preliminary Leg - Left Wound Culture - Preliminary Strep pyogenes (grp a) Gram Neg Bacilli 10/11/21 15:44 Blood Culture - Preliminary Blood No Growth after 24 hours 10/11/21 15:44 Blood Culture - Preliminary Blood No Growth after 24 hours Assessment and Plan (1) Cellulitis Current Visit: Yes Status: Acute Code(s): L03.90 - CELLULITIS, UNSPECIFIED SNOMED Code(s): 303724364 Plan: 1patient with bilateral lower extremity nonhealing wound and cellulitis seems to be more of a venous stasis ulcers with secondary cellulitis and likely from gram-positive skin pb less likely gram-negative infection in this patient has not seen a physician for 20 years less likelihood of a MRSA infection. 2 patient is status post surgical debridement and deep culture which are currently pending 3we will continue the patient on Unasyn 3 g every 8 hour while waiting for the culture to finalize. 4local wound care to continue per vascular surgery Time with Patient: Less than 30
--- NOTE | 2021-10-14 23:39 | P.PN ---
Subjective Progress Note Date: 10/14/21 Principal diagnosis: Bilateral lower extremity venous stasis ulcer and cellulitis Patient is a 66-year-old female who has not seen a physician in 20 years presented to the hospital with significant bilateral lower extremity necrotic wound and secondary cellulitis in this patient who is status post surgical debridement of these wounds in the OR on 10/13/2021. On today's evaluation that is 10/14/2021, the patient denies any fever and chills, the patient is breathing comfortably, the patient denies having any chest pain shortness of breath or cough pain to bilateral lower extremity wound is currently controlled and vomiting or any diarrhea Objective - Vital Signs Vital signs: Vital Signs Temp 98.7 F 10/14/21 04:50 Pulse 87 10/14/21 04:50 Resp 18 10/14/21 04:50 BP 88/55 10/14/21 04:50 Pulse Ox 94 L 10/14/21 04:50 Intake & Output 10/13/21 10/14/21 10/14/21 18:59 06:59 18:59 Intake Total 1750 600 360 Output Total 350 1100 Balance 1400 -500 360 Intake: IV 850 Intake, IV Titration 900 600 Amount Lactated Ringers 1,000 ml 600 @ 50 mls/hr IV .Q20H L[facility] Rx#:[id number] Sodium Chloride 0.9% 1, 900 000 ml @ 75 mls/hr IV . [id number] LESIA Rx#:[id number] Oral 360 Output: Urine 300 1100 Estimated Blood Loss 50 Other: Voiding Method Incontinent Indwelling Catheter Indwelling Catheter External Catheter - Exam GENERAL DESCRIPTION: An elderly female lying in bed in no distress RESPIRATORY SYSTEM: Unlabored breathing , decreased breath sounds at bases HEART: S1 S2 regular rate and rhythm , ABDOMEN: Soft , no tenderness EXTREMITIES: Bilateral lower extremity wounds are currently dressed no drainage on the dressing - Labs CBC & Chem 7: 10/14/21 05:15 10/14/21 05:15 Labs: Abnormal Lab Results - Last 24 Hours (Table) 10/13/21 10/13/21 10/14/21 Range/Units 12:57 14:39 05:15 WBC 11.9 H (3.8-10.6) k/uL RBC 3.62 L (3.80-5.40) m/uL Hgb 10.4 L (11.4-16.0) gm/dL Hct 32.3 L (34.0-46.0) % RDW 16.1 H (11.5-15.5) % Potassium (3.5-5.1) mmol/L Chloride (98-107) mmol/L BUN (7-17) mg/dL POC Glucose (mg/dL) 73 L 125 H (75-99) mg/dL Calcium (8.4-10.2) mg/dL 10/14/21 Range/Units 05:15 WBC (3.8-10.6) k/uL RBC (3.80-5.40) m/uL Hgb (11.4-16.0) gm/dL Hct (34.0-46.0) % RDW (11.5-15.5) % Potassium 3.4 L (3.5-5.1) mmol/L Chloride 111 H (98-107) mmol/L BUN 33 H (7-17) mg/dL POC Glucose (mg/dL) (75-99) mg/dL Calcium 7.8 L (8.4-10.2) mg/dL Microbiology - Last 24 Hours (Table) 10/11/21 15:44 Urine Culture - Final Urine,Voided Escherichia coli 10/11/21 15:44 Gram Stain - Preliminary Leg - Left Wound Culture - Preliminary Strep pyogenes (grp a) Pseudomonas aeruginosa Gram Neg Bacilli Presumptive Staph aureus 10/13/21 14:20 Gram Stain - Preliminary Leg - Right Tissue Culture - Preliminary 10/13/21 14:20 Anaerobic Culture - Preliminary Leg - Right 10/13/21 14:20 Fungal Culture - Preliminary Leg - Right 10/11/21 15:44 Blood Culture - Preliminary Blood No Growth after 48 hours 10/11/21 15:44 Blood Culture - Preliminary Blood No Growth after 48 hours Assessment and Plan (1) Cellulitis Current Visit: Yes Status: Acute Code(s): L03.90 - CELLULITIS, UNSPECIFIED SNOMED Code(s): 648749714 Plan: 1patient with bilateral lower extremity nonhealing wound and cellulitis seems to be more of a venous stasis ulcers with secondary cellulitis and likely from gram-positive skin pb less likely gram-negative infection in this patient has not seen a physician for 20 years less likelihood of a MRSA infection. 2 patient is status post surgical debridement and deep culture which are currently growing multiple pathogens including Pseudomonas strep 3antibiotics has been switched over to Zosyn to cover for the Pseudomonas and will be adjusted further once sensitivities are finalized 4local wound care to continue per vascular surgery Time with Patient: Less than 30
[2021-10-15] MEDS: HYDROcodone/APAP 5-325MG 1 EACH TAB PO PRN ×2 (04:39→10:21)
[2021-10-15] MEDS ORDERED: bisacodyL 10 MG SUPP RECTAL STA (07:28)
[2021-10-15] MEDS: PIPERACILLIN-TAZOBACTAM 3.375 GM in SODIUM CHLORIDE 0.9% 100 ML IVPB SCH (07:48)
[2021-10-15 08:39] LABS: HCT 30.3 % (34.0-46.0); HGB 9.4 gm/dL (11.4-16.0); MCH 28.2 pg (25.0-35.0); MCV 91.2 fL (80.0-100.0); Platelet Count 350 k/uL (150-450); RBC 3.33 m/uL (3.80-5.40); RDW 15.6 % (11.5-15.5); WBC 11.4 k/uL (3.8-10.6)
[2021-10-15 09:01] LABS: ALT 14 U/L (4-34); AST 25 U/L (14-36); African American GFR (CKD) >90 (>60 ml/min/1.73 sqM); Albumin/Globulin Ratio 0.7; Alkaline Phosphatase 93 U/L (38-126); Anion Gap 6 mmol/L; Blood Urea Nitrogen 23 mg/dL (7-17); Calcium 7.5 mg/dL (8.4-10.2); Carbon Dioxide 22 mmol/L (22-30); Chloride 109 mmol/L (98-107); Globulin 2.7 g/dL; Glucose 115 mg/dL (74-99); Magnesium 1.5 mg/dL (1.6-2.3); Non-African American GFR(CKD) 84 (>60 ml/min/1.73 sqM); Potassium 3.8 mmol/L (3.5-5.1); Sodium 137 mmol/L (137-145); Total Bilirubin 1.2 mg/dL (0.2-1.3); Total Protein 4.7 g/dL (6.3-8.2)
[2021-10-15] MEDS: ASPIRIN 325 MG TAB PO SCH (10:21)
[2021-10-15] MEDS: ATORVASTATIN 40 MG TAB PO SCH (10:21)
[2021-10-15] MEDS: CLOPIDOGREL 75 MG TAB PO SCH (10:22)
[2021-10-15] MEDS ORDERED: NA PHOS,M-B/NA PHOS,DI-BA 133 ML ENEMA RECTAL ONE (10:30)
--- NOTE | 2021-10-15 13:32 | P.PN ---
Progress Note - Text Progress Note Date: 10/15/21 Interval History: Patient was seen resting in her chair with her Christopher present. Currently the patient remains resting in bed and is arousable but somnolent. Currently the patient's is not reporting any psychiatric concern at this time. He reports she appears to be less agitated and more approrpriate with the improvement in pain management. The patient and her huband are currently refusing any MRI stating they do not feel she has a medical need for one. They continue to refuse medications. Mental Status Exam: General Appearance: Patient appears to be stated age, dressed in a hospital gown and has her bilateral lower extremities wrapped up. Behavior: Patient is lying down in bed comfortably. Speech: Patient's speech is nonspontaneous, soft spoken, and minimal. Mood/Affect: Mood is "tired." Affect is congruent and constricted today. Suicidality/Homicidality: Patient does not reply due to somnolence. Perceptions: Patient does not reply due to somnolence. Though content/process: Could not appropriately assess. Memory and concentration: Grossly poor. Judgment and insight: Grossly poor. Vital Signs Temp 99.2 F 10/15/21 04:19 Pulse 65 10/15/21 04:19 Resp 18 10/15/21 04:19 BP 100/66 10/15/21 04:19 Pulse Ox 94 L 10/15/21 04:19 Intake & Output 10/14/21 10/15/21 10/15/21 18:59 06:59 18:59 Intake Total 1350 1200 Output Total 900 Balance 1350 300 Intake: Intake, IV Titration 800 Amount ACETAMINOPHEN IV (For NPO 100 ) 1,000 mg In Empty Bag 1 bag @ 400 mls/hr IVPB ONCE STA Rx#:[id number] Lactated Ringers 1,000 ml 600 @ 50 mls/hr IV .Q20H L[facility]IA Rx#:[id number] Piperacillin-Tazobactam 3 100 .375 gm In Sodium Chloride 0.9% 100 ml @ 25 mls/hr IVPB Q8HR [facility] Rx# :[id number] Oral 1350 400 Output: Urine 900 Other: Voiding Method Indwelling Catheter Indwelling Catheter Indwelling Catheter Laboratory Results - Last 24 Hours 05/03/22 05/03/22 08:06 08:06 WBC 11.4 H RBC 3.33 L Hgb 9.4 L Hct 30.3 L MCV 91.2 MCH 28.2 MCHC 31.0 RDW 15.6 H Plt Count 350 MPV 7.0 Sodium 137 Potassium 3.8 Chloride 109 H Carbon Dioxide 22 Anion Gap 6 BUN 23 H Creatinine 0.74 Est GFR (CKD-EPI)AfAm >90 Est GFR (CKD-EPI)NonAf 84 Glucose 115 H Calcium 7.5 L Magnesium 1.5 L Total Bilirubin 1.2 AST 25 ALT 14 Alkaline Phosphatase 93 Total Protein 4.7 L Albumin 2.0 L Globulin 2.7 Albumin/Globulin Ratio 0.7 Assessment Acute psychosis vs Delirium Plan: -Continue medical management. -Currently, the patient and her are not agreeable to starting any antipsychotic medications. This provider discussed at length the role of antipsychotic medications including the risks, benefits, and treatment alternatives. No medications will be started at this time. -Currently, the patient does not meet criteria for inpatient psychiatric hospitalization as she has numerous medical issues that may be contributed to her current presentation. Patient's at this time does not believe that there is any acute psychiatric pathology that needs to be addressed at this time. -Continue Haldol when necessary for acute psychosis. Continue to monitor for EPS, tardive dyskinesia, akathisia, QTC prolongation with antipsychotic administration. -Psychiatry will continue to follow.
--- NOTE | 2021-10-15 13:45 | PN ---
PROGRESS NOTE Mirela Melgar is a 66-year-old female. The patient had a chronic wound on both lower extremities with devitalized tissue and skin necrosis. Patient went for bilateral leg debridement. We have been changing the dressing with Aquacel Silver. We will change the dressing again on . The patient is on IV antibiotic under the care of Infectious Disease. MMODL / IJN: [id number] /
--- NOTE | 2021-10-15 15:08 | P.PN ---
Subjective Progress Note Date: 10/15/21 HISTORY OF PRESENT ILLNESS: Patient is status post extensive debridement of right and left lower extremity wounds. Patient examined this afternoon. She is sitting up in chair. She denies chest pain or pressure. She denies shortness of breath. Blood pressure 90/53. PHYSICAL EXAM: VITAL SIGNS: Reviewed. GENERAL: Well-developed in no acute distress. NECK: Supple. No JVD or thyromegaly LUNGS: Respirations even and unlabored. Lungs essentially clear to auscultation bilaterally. HEART: Regular rate and rhythm. S1 and S2 heard. EXTREMITIES: Normal range of motion. No clubbing or cyanosis. Peripheral pulses intact. CRISTOFER wraps and dressings noted to lower extremities ASSESSMENT: Bilateral lower extremity cellulitis, status post extensive debridement of lower extremity wounds Hypotension Mild cardiomyopathy, etiology unclear, EF 45% with evidence of inferior septal hypokinesis Recent CVA PLAN: Continue current cardiac medications including aspirin and Plavix and Lipitor Continue to monitor blood pressure When patient's blood pressure improves will consider adding beta kiersten and CRISTOFER inhibitor Patient to follow up on an outpatient basis for possible stress testing to evaluate for underlying CAD Further recommendations pending patient course Nurse practitioner note has been reviewed by physician. Signing provider agrees with the documented findings, assessment, and plan of care. Objective - Vital Signs Vital signs: Vital Signs Temp 98.4 F 10/15/21 11:43 Pulse 72 10/15/21 11:43 Resp 18 10/15/21 11:43 BP 90/53 10/15/21 11:43 Pulse Ox 96 10/15/21 11:43 Intake & Output 10/14/21 10/15/21 10/15/21 18:59 06:59 18:59 Intake Total 1350 1200 Output Total 900 Balance 1350 300 Intake: Intake, IV Titration 800 Amount ACETAMINOPHEN IV (For NPO 100 ) 1,000 mg In Empty Bag 1 bag @ 400 mls/hr IVPB ONCE STA Rx#:[id number] Lactated Ringers 1,000 ml 600 @ 50 mls/hr IV .Q20H [facility] Rx#:[id number] Piperacillin-Tazobactam 3 100 .375 gm In Sodium Chloride 0.9% 100 ml @ 25 mls/hr IVPB Q8HR [facility] Rx# :[id number] Oral 1350 400 Output: Urine 900 Other: Voiding Method Indwelling Catheter Indwelling Catheter Indwelling Catheter - Labs CBC & Chem 7: 10/15/21 08:06 10/15/21 08:06 Labs: Abnormal Lab Results - Last 24 Hours (Table) 10/15/21 10/15/21 Range/Units 08:06 08:06 WBC 11.4 H (3.8-10.6) k/uL RBC 3.33 L (3.80-5.40) m/uL Hgb 9.4 L (11.4-16.0) gm/dL Hct 30.3 L (34.0-46.0) % RDW 15.6 H (11.5-15.5) % Chloride 109 H (98-107) mmol/L BUN 23 H (7-17) mg/dL Glucose 115 H (74-99) mg/dL Calcium 7.5 L (8.4-10.2) mg/dL Magnesium 1.5 L (1.6-2.3) mg/dL Total Protein 4.7 L (6.3-8.2) g/dL Albumin 2.0 L (3.5-5.0) g/dL Microbiology - Last 24 Hours (Table) 10/11/21 15:44 Gram Stain - Final Leg - Left Wound Culture - Final Strep pyogenes (grp a) Pseudomonas aeruginosa Escherichia coli Staphylococcus aureus 10/13/21 14:20 Gram Stain - Preliminary Leg - Right Tissue Culture - Preliminary Strep pyogenes (grp a) Gram Neg Bacilli Gram Neg Bacilli#2 10/11/21 15:44 Blood Culture - Preliminary Blood No Growth after 72 hours 10/11/21 15:44 Blood Culture - Preliminary Blood No Growth after 72 hours 10/11/21 15:44 Urine Culture - Final Urine,Voided Escherichia coli
[2021-10-15] MEDS: GABAPENTIN 100 MG CAP PO SCH ×3 (15:49→23:49)
[2021-10-15] MEDS: CEFEPIME 2 GM in SODIUM CHLORIDE 0.9% 100 ML IVPB SCH (15:49)
[2021-10-15] MEDS: HEPARIN SODIUM,PORCINE/PF 5,000 UNIT/0.5 ML SYRINGE SQ SCH (17:45)
--- NOTE | 2021-10-15 19:23 | P.PN ---
Subjective Progress Note Date: 10/15/21 (delayed charting seen at 0845) Principal diagnosis: wounds Patient is a 66 yo female with low back pain who has not seen a doctor in years who was sent in by Dr. Jones for lower extremity wounds. She was found to have cellulitis with sepsis, ZANDER, and thrombocytosis. Her UA demonstrated bacturia. Her Head CT showed multilevel cervical spondolytic changes and left middle cerebral artery subacute infarct and chronic small vessel ischemic changes. She was started on antibiotics and IV fluids. She was seen by infectious disease who recommended department by vascular surgery which was completed on 10/13. Her echo also demonstrated an ejection fraction of 40-45% and cardiology was consulted. Her A1c was noted to be elevated. She did struggle with hallucinations during her hospital stay. Patient seen and examined at bedside. and daughter at bedside. Was able to sit in chair yesterday for 4 hours. Still with pain, slept well last night, eating and drinking. Worried about pain associated with dressing changes. General: ill appearing, no distress, appears at stated age Derm: bilateral lower extremities wounds with dressing in place, more skin sloughing of the feet. Head: atraumatic, normocephalic, symmetric Eyes: EOMI, no lid lag, anicteric sclera Mouth: no lip lesion, mucus membranes moist Cardiovascular: S1S2 tachy, no murmur, positive posterior tibial pulse bilateral, Lungs: Course bs bilateral, no rhonchi, no rales , no accessory muscle use Abdominal: soft, nontender to palpation, no guarding, no appreciable organomegaly Ext: no gross muscle atrophy, no edema, no contractures Neuro: CN II-XI grossly intact, no focal neuro deficits Psych: Alert, oriented, upset, tearful and anxious Assessment/Plan: polymicrobial Bilateral Lower extremity cellultis with chronic wounds - ID recs appreciated - pain control - morphine, norco, and neurontin - cefepime - blood cultures negative to date - likely when pain improved will need doppler to asses blood flow. - vascular rec: s/p debridement, dressing change thursday DM, newly discovered - SSI - follow BS - Anticipate metformin on discharge - A1C 8 Hyperchloremic Metabolic Acidosis - improving - lactated ringers - repeat labs in AM Subacute Left MCA CVA - ASA, statin, plavix - echo with depressed EF - carotid us normal - lipid profile - neuro recs Cardiomyopathy - EF 40-45% - Grade 1 diastolic dysfunction - hypokensis - Cardio recs appreciated: BB and ACEI when BP stable, outpatient stress test Hallucinations - prn haldol - psych recs appreciated - supportive environment Constipation - suppository UTI, treated ZANDER, resolved DVT prophylaxis: Lovenox Discussed with: Patient, nursing, daughter, Anticipated discharge: pending clinical course Anticipated discharge place: home A total of 35 minutes was spent on the care of this complex patient more than 50% of the time was spent in counseling and care coordination. Active Medications Generic Name Dose Route Start Last Admin Trade Name Freq PRN Reason Stop Dose Admin Hydrocodone Bitart/Acetaminophen 1 each 10/15/21 18:57 Hydrocodone/Apap 10-325mg 1 Each Tab PO Q6HR PRN Pain Aspirin 325 mg 10/12/21 09:00 10/15/21 10:21 Aspirin 325 Mg Tab PO 325 mg DAILY [facility]IA Administration Atorvastatin Calcium 40 mg 10/12/21 09:00 10/15/21 10:21 Atorvastatin 40 Mg Tab PO 40 mg DAILY [facility] Administration Bisacodyl 5 mg 10/14/21 08:37 10/14/21 09:20 Bisacodyl 5 Mg Tablet.Dr PO 5 mg DAILY PRN Administration Constipation Clopidogrel Bisulfate 75 mg 10/13/21 09:00 10/15/21 10:22 Clopidogrel 75 Mg Tab PO 75 mg DAILY L[facility]IA Administration Enoxaparin Sodium 40 mg 10/16/21 09:00 Enoxaparin 40 Mg/0.4 Ml Syringe SQ DAILY [facility] Gabapentin 200 mg 10/15/21 11:00 10/15/21 17:05 Gabapentin 100 Mg Cap PO Not Given TID LESIA Haloperidol Lactate 2 mg 10/12/21 08:57 Haloperidol Lactate 5 Mg/Ml 1 Ml Vial IM Q4HR PRN Agitation or Acute Psychosis Lactated Ringer's 1,000 mls @ 50 mls/hr 10/13/21 08:15 10/14/21 23:19 Lactated Ringers IV 50 mls/hr .Q20H L[facility]IA Administration Cefepime HCl 2 gm/ Sodium 100 mls @ 25 mls/hr 10/15/21 16:00 10/15/21 15:49 Chloride IVPB 25 mls/hr Q8HR L[facility]IA Administration Protocol Magnesium Sulfate/Dextrose 1 100 mls @ 100 mls/hr 10/15/21 19:00 gm/ IV Solution IVPB 10/15/21 22:59 Q1H L[facility]IA Morphine Sulfate 4 mg 10/12/21 08:57 10/14/21 15:46 Morphine Sulfate 4 Mg/Ml Syringe IVP 4 mg Q4HR PRN Administration Pain Naloxone HCl 0.2 mg 10/11/21 19:44 Naloxone 0.4 Mg/Ml 1 Ml Vial IV Q2M PRN Opioid Reversal Objective - Vital Signs Vital signs: Vital Signs Temp 98.4 F 10/15/21 11:43 Pulse 82 10/15/21 17:06 Resp 18 10/15/21 11:43 BP 92/58 10/15/21 17:06 Pulse Ox 97 10/15/21 15:30 Intake & Output 10/14/21 10/15/21 10/15/21 18:59 06:59 18:59 Intake Total 1350 1200 Output Total 900 500 Balance 1350 300 -500 Intake: Intake, IV Titration 800 Amount ACETAMINOPHEN IV (For NPO 100 ) 1,000 mg In Empty Bag 1 bag @ 400 mls/hr IVPB ONCE STA Rx#:[id number] Lactated Ringers 1,000 ml 600 @ 50 mls/hr IV .Q20H L[facility]IA Rx#:[id number] Piperacillin-Tazobactam 3 100 .375 gm In Sodium Chloride 0.9% 100 ml @ 25 mls/hr IVPB Q8HR [facility] Rx# :[id number] Oral 1350 400 Output: Urine 900 500 Uretheral (Marie) 500 Other: Voiding Method Indwelling Catheter Indwelling Catheter Indwelling Catheter # Bowel Movements 4 - Labs CBC & Chem 7: 10/15/21 08:06 10/15/21 08:06 Labs: Abnormal Lab Results - Last 24 Hours (Table) 10/15/21 10/15/21 Range/Units 08:06 08:06 WBC 11.4 H (3.8-10.6) k/uL RBC 3.33 L (3.80-5.40) m/uL Hgb 9.4 L (11.4-16.0) gm/dL Hct 30.3 L (34.0-46.0) % RDW 15.6 H (11.5-15.5) % Chloride 109 H (98-107) mmol/L BUN 23 H (7-17) mg/dL Glucose 115 H (74-99) mg/dL Calcium 7.5 L (8.4-10.2) mg/dL Magnesium 1.5 L (1.6-2.3) mg/dL Total Protein 4.7 L (6.3-8.2) g/dL Albumin 2.0 L (3.5-5.0) g/dL Microbiology - Last 24 Hours (Table) 10/13/21 14:20 Gram Stain - Final Leg - Right Tissue Culture - Final Strep pyogenes (grp a) Pseudomonas aeruginosa Escherichia coli 10/11/21 15:44 Blood Culture - Preliminary Blood No Growth after 96 hours 10/11/21 15:44 Blood Culture - Preliminary Blood No Growth after 96 hours 10/11/21 15:44 Gram Stain - Final Leg - Left Wound Culture - Final Strep pyogenes (grp a) Pseudomonas aeruginosa Escherichia coli Staphylococcus aureus
[2021-10-15] MEDS: MAGNESIUM SULFATE-D5W PMX 1 GM in DEXTROSE/WATER 1 100ML.BAG IVPB SCH ×3 (20:18→23:34)
[2021-10-15 20:54] LABS: HCT 28.3 % (34.0-46.0); HGB 8.6 gm/dL (11.4-16.0); Hypochromasia Moderate; MCH 28.5 pg (25.0-35.0); MCHC 30.3 g/dL (31.0-37.0); MCV 94.1 fL (80.0-100.0); Mean Platelet Volume 7.5; Platelet Count 353 k/uL (150-450); RBC 3.01 m/uL (3.80-5.40); RDW 15.5 % (11.5-15.5); WBC 14.5 k/uL (3.8-10.6)
[2021-10-15] MEDS ORDERED: PANTOPRAZOLE 40 MG/10 ML VIAL IVP ONE (21:23)
--- NOTE | 2021-10-15 21:26 | P.PN ---
Progress Note - Text Progress Note Date: 10/15/21 suspected GI bleeding with steady drop in Hgb vital signs stable plan transfer to 3S IV protonix, then continue BID hold aspirin and lovenox sc continue with plavix continue to monitor for GI bleeding , currently mainly melena H&H Q6hr Gen Surg consult
[2021-10-15 22:51] LABS: Glucose,Whole Blood 116 mg/dL (75-99)
[2021-10-15] MEDS: LACTATED RINGERS 1,000 ML IV SCH (23:31)
[2021-10-16] MEDS: CEFEPIME 2 GM in SODIUM CHLORIDE 0.9% 100 ML IVPB SCH ×4 (00:28→23:09)
[2021-10-16] MEDS: MAGNESIUM SULFATE-D5W PMX 1 GM in DEXTROSE/WATER 1 100ML.BAG IVPB SCH (01:25)
[2021-10-16 02:05] LABS: HCT 24.9 % (34.0-46.0); HGB 7.5 gm/dL (11.4-16.0); MCH 27.8 pg (25.0-35.0); MCHC 30.2 g/dL (31.0-37.0); MCV 92.2 fL (80.0-100.0); Mean Platelet Volume 7.3; Platelet Count 333 k/uL (150-450); RDW 15.4 % (11.5-15.5); WBC 12.1 k/uL (3.8-10.6)
[2021-10-16 06:47] LABS: Anisocytosis Slight; HCT 25.5 % (34.0-46.0); HGB 7.7 gm/dL (11.4-16.0); Hypochromasia Marked; MCH 28.5 pg (25.0-35.0); MCHC 30.3 g/dL (31.0-37.0); MCV 94.1 fL (80.0-100.0); Mean Platelet Volume 7.1; Platelet Count 360 k/uL (150-450); RBC 2.71 m/uL (3.80-5.40); RDW 16.1 % (11.5-15.5); WBC 10.1 k/uL (3.8-10.6)
[2021-10-16 07:04] LABS: Glucose,Whole Blood 133 mg/dL (75-99)
[2021-10-16 07:10] LABS: ALT 15 U/L (4-34); African American GFR (CKD) >90 (>60 ml/min/1.73 sqM); Albumin 1.9 g/dL (3.5-5.0); Albumin/Globulin Ratio 0.7; Anion Gap 5 mmol/L; Blood Urea Nitrogen 19 mg/dL (7-17); Carbon Dioxide 20 mmol/L (22-30); Chloride 110 mmol/L (98-107); Globulin 2.7 g/dL; Glucose 120 mg/dL (74-99); Non-African American GFR(CKD) >90 (>60 ml/min/1.73 sqM); Sodium 135 mmol/L (137-145); Total Bilirubin 0.9 mg/dL (0.2-1.3); Total Protein 4.6 g/dL (6.3-8.2)
[2021-10-16 07:30] LABS: AST 32 U/L (14-36); Magnesium 2.3 mg/dL (1.6-2.3); Potassium 3.9 mmol/L (3.5-5.1)
[2021-10-16 07:31] LABS: Alkaline Phosphatase 88 U/L (38-126)
[2021-10-16] MEDS: CLOPIDOGREL 75 MG TAB PO SCH (08:18)
[2021-10-16] MEDS: ATORVASTATIN 40 MG TAB PO SCH (08:36)
[2021-10-16] MEDS: PANTOPRAZOLE 40 MG/10 ML VIAL IVP SCH ×2 (08:36→22:11)
[2021-10-16] MEDS ORDERED: ENOXAPARIN 40 MG/0.4 ML SYRINGE SQ SCH (09:00)
[2021-10-16 11:19] LABS: Glucose,Whole Blood 136 mg/dL (75-99)
[2021-10-16] MEDS: GABAPENTIN 100 MG CAP PO SCH ×3 (11:27→22:06)
--- NOTE | 2021-10-16 11:27 | P.CONS ---
History of Present Illness - Reason for Consult Consult date: 10/16/21 GI bleed Requesting physician: Saritha Harper - Chief Complaint Lower extremity cellulitis - History of Present Illness This is a 66-year-old female who presented to the emergency department on 10/11/2021 with complaints of lower extremity swelling and wounds. Patient was admitted with cellulitis with bilateral necrotic tissue of lower extremities and underwent debridement with vascular surgery. During her admission for possible stroke. She was seen by neurology who reported large subacute right cerebral hemispheric infarct. Toxic encephalopathy/delirium secondary to underlying infection. Patient was started on aspirin 81 mg and Plavix 75 mg daily. Apparently the patient has not followed with the physician in over 20 years. Uses multiple supplements at home and her who is at the bedside states that she takes a lot of ibuprofen daily. Patient had reported currently 45 maroon colored bowel movements through the night, the patient was supposed transferred to cardiac stepdown however no beds were available so she was transferred to the ICU for further evaluation of GI bleed. Patient has had for more maroon colored bowel movements, loose this morning. She is somewhat confused. However does seem to answer questions appropriately. On admission patient was found to have a hemoglobin of 14.9 with a drop to 7.7 today. Gastroenterology was consulted for GI bleed. Patient's states no prior EGD or colonoscopy. Patient denies any abdominal pain, nausea or vomiting. She's been eating a regular diet. Review of Systems REVIEW OF SYSTEMS: CARDIOPULMONARY: No chest pain or shortness of breath. Gastrointestinal: No abdominal pain. No nausea or vomiting. No hematemesis, coffee-ground emesis. Several maroon-colored stools, loose. GENITOURINARY: No dysuria or hematuria. MUSCULOSKELETAL: Reports normal range of motion., Joint pain. SKIN: No rashes. No jaundice. ENDOCRINE: No chills, fevers. No excessive weight gain or loss. No polydipsia or polyuria. PSYCHIATRIC: Unremarkable. NEUROLOGY: Confused. Speaking about things that make no sense. However is able to answer questions somewhat appropriately. ENT: Vision unremarkable. CONSTITUTIONAL: No recent weight loss. No fever, chills, night sweats. Past Medical History Additional Past Medical History / Comment(s): lower back pain History of Any Multi-Drug Resistant Organisms: None Reported Past Surgical History: Tubal Ligation Past Anesthesia/Blood Transfusion Reactions: No Reported Reaction Past Psychological History: No Psychological Hx Reported Smoking Status: Current every day smoker Past Alcohol Use History: None Reported Past Drug Use History: None Reported - Past Family History family Additional Family Medical History / Comment(s): heart disease chf Medications and Allergies Home Medications Medication Instructions Recorded Confirmed Type Ascorbic Acid [Vitamin C] 1,000 mg PO DAILY 10/11/21 10/11/21 History Cholecalciferol [Vitamin D3 (125 125 mcg PO DAILY 10/11/21 10/11/21 History Mcg = 5000 Iu)] Flaxseed Oil 1,000 mg PO DAILY 10/11/21 10/11/21 History Ibuprofen [Motrin Ib] 600 mg PO Q8H PRN 10/11/21 10/11/21 History Magnesium Oxide [Mag-Ox] 400 mg PO DAILY 10/11/21 10/11/21 History Multivitamins, Thera [Multivitamin 1 tab PO DAILY 10/11/21 10/11/21 History (formulary)] Naproxen Sodium [Aleve] 220 mg PO BID PRN 10/11/21 10/11/21 History [place]-3 Fatty Acids/Fish Oil [Fish 1 cap PO DAILY 10/11/21 10/11/21 History Oil 1,000 mg Softgel] Potassium Gluconate [Potassium 99 mg PO DAILY 10/11/21 10/11/21 History Gluconate ER] Sennosides [Ex-Lax Chew] 15 mg PO DAILY PRN 10/11/21 10/11/21 History Vitamin A [Vitamin A (8,000 Units 2,400 mcg PO DAILY 10/11/21 10/11/21 History = 2,400 MCG)] Allergies Allergy/AdvReac Type Severity Reaction Status Date / Time No Known Allergies Allergy Verified 10/11/21 20:24 Physical Exam Vitals: Vital Signs Temp Pulse Pulse Resp BP BP Pulse Ox 10/16/21 07:00 73 13 114/66 93 L 10/16/21 06:30 71 17 114/57 95 10/16/21 06:00 68 14 97/51 97 10/16/21 05:30 66 14 100/53 98 10/16/21 05:00 63 14 105/58 99 10/16/21 04:30 69 16 93/52 98 10/16/21 04:00 97.7 F 64 13 99/50 98 10/16/21 03:30 67 16 91/56 98 10/16/21 03:00 70 19 93/52 98 10/16/21 02:30 73 16 96/59 98 10/16/21 02:00 77 93 23 99/64 98 10/16/21 01:30 78 17 91/53 92 L 10/16/21 01:00 78 17 88/62 98 10/16/21 00:30 75 18 92/56 95 10/16/21 00:03 75 12 104/63 98 10/16/21 00:00 98.2 F 80 93 21 98/56 97 10/15/21 23:45 76 23 94/59 98 10/15/21 23:30 78 24 85/56 97 10/15/21 23:15 78 19 91/57 98 10/15/21 23:00 98.7 F 81 24 88/58 95 10/15/21 21:00 98.4 F 93 20 73/50 98 10/15/21 20:05 20 98 10/15/21 17:06 82 92/58 10/15/21 15:30 97 10/15/21 11:43 98.4 F 72 18 90/53 96 Intake and Output 10/15/21 10/16/21 10/16/21 22:59 06:59 14:59 Intake Total 500 50 Output Total 340 50 Balance 160 0 Intake: IV 400 50 Lactated Ringers 1,000 ml 400 50 @ 50 mls/hr IV .Q20H [facility] Rx#:[id number] Intake, IV Titration 100 Amount Magnesium Sulfate-D5w Pmx 100 1 gm In Dextrose/Water 1 100ml.bag @ 100 mls/hr IVPB Q1H [facility] Rx#: [id number] Output: Urine 340 50 Other: Voiding Method Indwelling Catheter Indwelling Catheter # Bowel Movements 1 1 Weight 83.8 kg General appearance: The patient is alert, oriented to self, appears in no acute distress. HET: Head is normocephalic and atraumatic. Conjunctiva pink. Sclera anicteric. Neck: Supple without lymphadenopathy. Trachea midline. Heart: S1 S2. Regular rate and rhythm. Lungs: Clear to auscultation. Abdomen: Soft, nontender, nondistended with bowel sounds. No guarding or rigidity. Skin: No rashes. No jaundice. Extremities: Bilateral lower extremity edema with dressings in place. Neurological: No focal deficits. Alert and oriented x1. Results CBC & Chem 7: 10/16/21 06:25 10/16/21 06:25 Labs: Abnormal Lab Results - Last 24 Hours (Table) 10/15/21 10/15/21 10/15/21 Range/Units 08:06 08:06 16:32 WBC 11.4 H (3.8-10.6) k/uL RBC 3.33 L (3.80-5.40) m/uL Hgb 9.4 L (11.4-16.0) gm/dL Hct 30.3 L (34.0-46.0) % MCHC (31.0-37.0) g/dL RDW 15.6 H (11.5-15.5) % Sodium (137-145) mmol/L Chloride 109 H (98-107) mmol/L Carbon Dioxide (22-30) mmol/L BUN 23 H (7-17) mg/dL Glucose 115 H (74-99) mg/dL POC Glucose (mg/dL) (75-99) mg/dL Calcium 7.5 L (8.4-10.2) mg/dL Magnesium 1.5 L (1.6-2.3) mg/dL Total Protein 4.7 L (6.3-8.2) g/dL Albumin 2.0 L (3.5-5.0) g/dL Stool Occult Blood Positive H (Negative) 10/15/21 10/15/21 10/16/21 Range/Units 20:38 22:49 01:03 WBC 14.5 H 12.1 H (3.8-10.6) k/uL RBC 3.01 L 2.70 L (3.80-5.40) m/uL Hgb 8.6 L 7.5 L (11.4-16.0) gm/dL Hct 28.3 L 24.9 L (34.0-46.0) % MCHC 30.3 L 30.2 L (31.0-37.0) g/dL RDW (11.5-15.5) % Sodium (137-145) mmol/L Chloride (98-107) mmol/L Carbon Dioxide (22-30) mmol/L BUN (7-17) mg/dL Glucose (74-99) mg/dL POC Glucose (mg/dL) 116 H (75-99) mg/dL Calcium (8.4-10.2) mg/dL Magnesium (1.6-2.3) mg/dL Total Protein (6.3-8.2) g/dL Albumin (3.5-5.0) g/dL Stool Occult Blood (Negative) 10/16/21 10/16/21 10/16/21 Range/Units 06:25 06:25 06:52 WBC (3.8-10.6) k/uL RBC 2.71 L (3.80-5.40) m/uL Hgb 7.7 L (11.4-16.0) gm/dL Hct 25.5 L (34.0-46.0) % MCHC 30.3 L (31.0-37.0) g/dL RDW 16.1 H (11.5-15.5) % Sodium 135 L (137-145) mmol/L Chloride 110 H (98-107) mmol/L Carbon Dioxide 20 L (22-30) mmol/L BUN 19 H (7-17) mg/dL Glucose 120 H (74-99) mg/dL POC Glucose (mg/dL) 133 H (75-99) mg/dL Calcium 7.0 L (8.4-10.2) mg/dL Magnesium (1.6-2.3) mg/dL Total Protein 4.6 L (6.3-8.2) g/dL Albumin 1.9 L (3.5-5.0) g/dL Stool Occult Blood (Negative) Microbiology - Last 24 Hours (Table) 10/13/21 14:20 Gram Stain - Final Leg - Right Tissue Culture - Final Strep pyogenes (grp a) Pseudomonas aeruginosa Escherichia coli 10/11/21 15:44 Blood Culture - Preliminary Blood No Growth after 96 hours 10/11/21 15:44 Blood Culture - Preliminary Blood No Growth after 96 hours Assessment and Plan (1) GI bleed Narrative/Plan: This 58-year-old female was transferred into the ICU yesterday evening with concerns of multiple maroon-colored stools. Patient was admitted with a hemoglobin of 14.9 with a drop to 7.7. Patient was admitted on 10/11/2021 with concerns of lower extremity cellulitis. She is status post debridement. Currently on IV antibiotics. Also concerns for subacute stroke he was started on low-dose aspirin and Plavix. Patient then had multiple maroon-colored stools. 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 Unknown history of any peptic ulcer disease. states that patient was taking a significant amount of NSAIDs, nearly daily use of ibuprofen. Possible etiologies include peptic ulcer disease, is esophagitis, gastritis, AVMs or other possible EGDs. Will hold Plavix, and plan for EGD tomorrow as patient had a regular breakfast this morning. Current Visit: Yes Status: Acute Code(s): K92.2 - GASTROINTESTINAL HEMORRHAGE, UNSPECIFIED SNOMED Code(s): 76438165 (2) Diabetes mellitus Current Visit: Yes Status: Acute Code(s): E11.9 - TYPE 2 DIABETES MELLITUS WITHOUT COMPLICATIONS SNOMED Code(s): 38475336 (3) CVA (cerebral vascular accident) Current Visit: Yes Status: Acute Code(s): I63.9 - CEREBRAL INFARCTION, UNSPECIFIED SNOMED Code(s): 874994991 (4) Urinary tract infection Current Visit: Yes Status: Acute Code(s): N39.0 - URINARY TRACT INFECTION, SITE NOT SPECIFIED SNOMED Code(s): 12925208 (5) Cellulitis Current Visit: Yes Status: Acute Code(s): L03.90 - CELLULITIS, UNSPECIFIED SNOMED Code(s): 675330198 Plan: 1. Clear liquid diet, nothing by mouth after midnight 2. Protonix 40 mg twice a day 3. Hold Plavix 4. Avoid NSAIDs 5. Repeat daily CBC, transfuse for hemoglobin less than 7 6. We'll plan for EGD tomorrow. This was discussed with the patient's , will need to obtain consent. Thank you for this consultation, we will continue to follow. Dr. Elsa Mccall I agree with the dictator's note, documented as a scribe by Taina Swanson.
[2021-10-16 11:57] LABS: Anisocytosis Slight; HCT 24.5 % (34.0-46.0); HGB 7.8 gm/dL (11.4-16.0); MCH 28.9 pg (25.0-35.0); MCHC 31.7 g/dL (31.0-37.0); Mean Platelet Volume 7.8; Platelet Count 384 k/uL (150-450); RBC 2.69 m/uL (3.80-5.40); RDW 16.3 % (11.5-15.5); WBC 9.5 k/uL (3.8-10.6)
--- NOTE | 2021-10-16 14:32 | P.PN ---
Progress Note - Text Progress Note Date: 10/16/21 Interval History: Patient was seen resting in her chair with her Christopher present. Currently the patient is not reporting any issues or concerns at this time. She is not reporting any suicidal or homicidal ideation, intention, and/or plan. She reports auditory hallucinations and some judaism preoccupation stating the voices she hears are related to angels watching over her. She is currently alert and oriented in all spheres although requires redirection in order to answer questions. Her at bedside states the patient is improving greatly and continues to believe that her psychiatric presentation is due to uncontrolled pain and other medical concerns causing delirium. Both patient and continue to not desire any antipsychotic intervention. Mental Status Exam: General Appearance: Patient appears to be stated age, dressed in a hospital gown and has her bilateral lower extremities wrapped up. Behavior: Patient is seated upright in bed comfortably. Speech: Patient's speech is spontaneous, difficult to follow, repetitive, but with normal fluency and rate. Mood/Affect: Mood is "feeling good." Affect is bright and expansive. Suicidality/Homicidality: Patient denies any suicidal or homicidal ideation. Perceptions: Patient endorses auditory hallucinations. She denies any visual hallucinations. Though content/process: Latter Day preoccupation and magical thinking. Bizarre delusions. Flight of ideas. Memory and concentration: Improving. Judgment and insight: Poor Vital Signs Temp 98.1 F 10/16/21 12:00 Pulse 79 10/16/21 14:00 Resp 23 10/16/21 14:00 BP 103/62 10/16/21 14:00 Pulse Ox 80 L 10/16/21 13:30 Intake & Output 10/15/21 10/16/21 10/16/21 18:59 06:59 18:59 Intake Total 500 350 Output Total 500 340 265 Balance -500 160 85 Weight 83.8 kg Intake: IV 400 350 Lactated Ringers 1,000 ml 400 350 @ 50 mls/hr IV .Q20H [facility] Rx#:[id number] Intake, IV Titration 100 Amount Magnesium Sulfate-D5w Pmx 100 1 gm In Dextrose/Water 1 100ml.bag @ 100 mls/hr IVPB Q1H [facility] Rx#: [id number] Output: Urine 500 340 265 Uretheral (Marie) 500 Other: Voiding Method Indwelling Catheter Indwelling Catheter Indwelling Catheter # Bowel Movements 4 1 1 Assessment Acute psychosis vs Delirium Plan: -Continue medical management. -Currently, the patient and her are not agreeable to starting any antipsychotic medications. This provider discussed at length the role of antipsychotic medications including the risks, benefits, and treatment alternat joey. No medications will be started at this time as they do not desire to treat psychotic symptoms. Cultural beliefs of patient and will be respected. -Currently, the patient does not meet criteria for inpatient psychiatric hospitalization as she has numerous medical issues that may be contributed to her current presentation. Patient's at this time does not believe that there is any acute psychiatric pathology that needs to be addressed at this time. -Continue Haldol when necessary for acute psychosis/agitation. Continue to monitor for EPS, tardive dyskinesia, akathisia, QTC prolongation with antipsychotic administration. -Psychiatry will sign off at this time. Should the patient display worsening psychiatric symptoms that require intervention, consider petition and clinical certification. Please contact psychiatry or reconsult us if necessary.
[2021-10-16] MEDS: LACTATED RINGERS 1,000 ML IV SCH ×2 (14:42→22:12)
--- NOTE | 2021-10-16 15:08 | P.PN ---
Subjective Progress Note Date: 10/16/21 (delayed charting seen at 1030) Principal diagnosis: wounds Patient is a 66 yo female with low back pain who has not seen a doctor in years who was sent in by Dr. Jones for lower extremity wounds. She was found to have cellulitis with sepsis, ZANDER, and thrombocytosis. Her UA demonstrated bacturia. Her Head CT showed multilevel cervical spondolytic changes and left middle cerebral artery subacute infarct and chronic small vessel ischemic changes. She was started on antibiotics and IV fluids. She was seen by infectious disease who recommended department by vascular surgery which was completed on 10/13. Her echo also demonstrated an ejection fraction of 40-45% and cardiology was consulted. Her A1c was noted to be elevated. She did struggle with hallucinations during her hospital stay which have slowly gotten better. She had severe constipation on 10/16/21 and required a suppository and enema. She ten developed maroon stools later that night. GI was consulted. Patient seen and examined at bedside. at bedside. He feels that she is improving. No chest pain, no shortness of breath, no headaches. General: ill appearing, no distress, appears at stated age Derm: bilateral lower extremities wounds with dressing in place, more skin sloughing of the feet. Head: atraumatic, normocephalic, symmetric Eyes: EOMI, no lid lag, anicteric sclera Mouth: no lip lesion, mucus membranes moist Cardiovascular: S1S2 tachy, no murmur, positive posterior tibial pulse bilateral, Lungs: Course bs bilateral, no rhonchi, no rales , no accessory muscle use Abdominal: soft, nontender to palpation, no guarding, no appreciable organomegaly Ext: no gross muscle atrophy, no edema, no contractures Neuro: CN II-XI grossly intact, no focal neuro deficits Psych: Alert, oriented, upset, tearful and anxious Assessment/Plan: polymicrobial Bilateral Lower extremity cellulitis with chronic wounds - ID recs appreciated - pain control - morphine, norco, and neurontin - cefepime - blood cultures negative to date - likely when pain improved will need doppler to asses blood flow. - vascular rec: s/p debridement, dressing changes per vascular GI bleed acute blood loss anemia - follow CBC - GI recs: EGD in AM - PPI BID DM, newly discovered - SSI - follow BS - Anticipate metformin on discharge - A1C 8 - ASA and plavix on hold - off lovenox Hyperchloremic Metabolic Acidosis - lactated ringers - repeat labs in AM Subacute Left MCA CVA -, statin, - ASA, plavix-- on hold due to GI bleed - echo with depressed EF - carotid us normal - lipid profile - neuro recs Cardiomyopathy - EF 40-45% - Grade 1 diastolic dysfunction - hypokensis - Cardio recs appreciated: BB and ACEI when BP stable, outpatient stress test Hallucinations - prn haldol - psych recs appreciated - supportive environment Constipation - suppository UTI, treated ZANDER, resolved DVT prophylaxis:SCDs Discussed with: Patient, nursing, daughter, Anticipated discharge: pending clinical course Anticipated discharge place: home A total of 35 minutes was spent on the care of this complex patient more than 50% of the time was spent in counseling and care coordination. Active Medications Generic Name Dose Route Start Last Admin Trade Name Freq PRN Reason Stop Dose Admin Hydrocodone Bitart/Acetaminophen 1 each 10/15/21 18:57 Hydrocodone/Apap 10-325mg 1 Each Tab PO Q6HR PRN Pain Atorvastatin Calcium 40 mg 10/12/21 09:00 10/16/21 08:36 Atorvastatin 40 Mg Tab PO 40 mg DAILY [facility] Administration Bisacodyl 5 mg 10/14/21 08:37 10/14/21 09:20 Bisacodyl 5 Mg Tablet.Dr PO 5 mg DAILY PRN Administration Constipation Gabapentin 200 mg 10/15/21 11:00 10/16/21 11:27 Gabapentin 100 Mg Cap PO Not Given TID [facility] Haloperidol Lactate 2 mg 10/12/21 08:57 Haloperidol Lactate 5 Mg/Ml 1 Ml Vial IM Q4HR PRN Agitation or Acute Psychosis Lactated Ringer's 1,000 mls @ 50 mls/hr 10/13/21 08:15 10/16/21 14:42 Lactated Ringers IV 50 mls/hr .Q20H [facility] Administration Cefepime HCl 2 gm/ Sodium 100 mls @ 25 mls/hr 10/15/21 16:00 10/16/21 08:37 Chloride IVPB 25 mls/hr Q8HR [facility] Administration Protocol Morphine Sulfate 4 mg 10/12/21 08:57 10/14/21 15:46 Morphine Sulfate 4 Mg/Ml Syringe IVP 4 mg Q4HR PRN Administration Pain Naloxone HCl 0.2 mg 10/11/21 19:44 Naloxone 0.4 Mg/Ml 1 Ml Vial IV Q2M PRN Opioid Reversal Pantoprazole Sodium 40 mg 10/16/21 09:00 10/16/21 08:36 Pantoprazole 40 Mg/10 Ml Vial IVP 40 mg BID [facility] Administration Objective - Vital Signs Vital signs: Vital Signs Temp 98.1 F 10/16/21 12:00 Pulse 79 10/16/21 14:00 Resp 23 10/16/21 14:00 BP 103/62 10/16/21 14:00 Pulse Ox 80 L 10/16/21 13:30 Intake & Output 10/15/21 10/16/21 10/16/21 18:59 06:59 18:59 Intake Total 500 450 Output Total 500 340 305 Balance -500 160 145 Weight 83.8 kg Intake: IV 400 450 Lactated Ringers 1,000 ml 400 450 @ 50 mls/hr IV .Q20H [facility] Rx#:[id number] Intake, IV Titration 100 Amount Magnesium Sulfate-D5w Pmx 100 1 gm In Dextrose/Water 1 100ml.bag @ 100 mls/hr IVPB Q1H [facility] Rx#: [id number] Output: Urine 500 340 305 Uretheral (Marie) 500 Other: Voiding Method Indwelling Catheter Indwelling Catheter Indwelling Catheter # Bowel Movements 4 1 1 - Labs CBC & Chem 7: 10/16/21 11:45 10/16/21 06:25 Labs: Abnormal Lab Results - Last 24 Hours (Table) 10/15/21 10/15/21 10/15/21 Range/Units 16:32 20:38 22:49 WBC 14.5 H (3.8-10.6) k/uL RBC 3.01 L (3.80-5.40) m/uL Hgb 8.6 L (11.4-16.0) gm/dL Hct 28.3 L (34.0-46.0) % MCHC 30.3 L (31.0-37.0) g/dL RDW (11.5-15.5) % Sodium (137-145) mmol/L Chloride (98-107) mmol/L Carbon Dioxide (22-30) mmol/L BUN (7-17) mg/dL Glucose (74-99) mg/dL POC Glucose (mg/dL) 116 H (75-99) mg/dL Calcium (8.4-10.2) mg/dL Total Protein (6.3-8.2) g/dL Albumin (3.5-5.0) g/dL Stool Occult Blood Positive H (Negative) 10/16/21 10/16/21 10/16/21 Range/Units 01:03 06:25 06:25 WBC 12.1 H (3.8-10.6) k/uL RBC 2.70 L 2.71 L (3.80-5.40) m/uL Hgb 7.5 L 7.7 L (11.4-16.0) gm/dL Hct 24.9 L 25.5 L (34.0-46.0) % MCHC 30.2 L 30.3 L (31.0-37.0) g/dL RDW 16.1 H (11.5-15.5) % Sodium 135 L (137-145) mmol/L Chloride 110 H (98-107) mmol/L Carbon Dioxide 20 L (22-30) mmol/L BUN 19 H (7-17) mg/dL Glucose 120 H (74-99) mg/dL POC Glucose (mg/dL) (75-99) mg/dL Calcium 7.0 L (8.4-10.2) mg/dL Total Protein 4.6 L (6.3-8.2) g/dL Albumin 1.9 L (3.5-5.0) g/dL Stool Occult Blood (Negative) 10/16/21 10/16/21 10/16/21 Range/Units 06:52 11:17 11:45 WBC (3.8-10.6) k/uL RBC 2.69 L (3.80-5.40) m/uL Hgb 7.8 L (11.4-16.0) gm/dL Hct 24.5 L (34.0-46.0) % MCHC (31.0-37.0) g/dL RDW 16.3 H (11.5-15.5) % Sodium (137-145) mmol/L Chloride (98-107) mmol/L Carbon Dioxide (22-30) mmol/L BUN (7-17) mg/dL Glucose (74-99) mg/dL POC Glucose (mg/dL) 133 H 136 H (75-99) mg/dL Calcium (8.4-10.2) mg/dL Total Protein (6.3-8.2) g/dL Albumin (3.5-5.0) g/dL Stool Occult Blood (Negative) Microbiology - Last 24 Hours (Table) 10/13/21 14:20 Gram Stain - Final Leg - Right Tissue Culture - Final Strep pyogenes (grp a) Pseudomonas aeruginosa Escherichia coli 10/11/21 15:44 Blood Culture - Preliminary Blood No Growth after 96 hours 10/11/21 15:44 Blood Culture - Preliminary Blood No Growth after 96 hours
[2021-10-16] MEDS ORDERED: SODIUM CHLORIDE 0.9% 1,000 ML IV ONE ×2 (15:51→16:20)
[2021-10-16] MEDS ORDERED: DESMOPRESSIN ACETATE 1 MCG in SODIUM CHLORIDE 0.9% 50 ML IVPB ONE (16:12)
[2021-10-16 16:39] LABS: Anisocytosis Slight; HCT 20.2 % (34.0-46.0); Hypochromasia Slight; MCH 28.7 pg (25.0-35.0); MCHC 31.1 g/dL (31.0-37.0); MCV 92.5 fL (80.0-100.0); Mean Platelet Volume 7.2; Platelet Count 227 k/uL (150-450); RBC 2.18 m/uL (3.80-5.40); RDW 16.3 % (11.5-15.5); WBC 13.9 k/uL (3.8-10.6)
[2021-10-16] MEDS ORDERED: fentaNYL (PF) 50 MCG/ML 2 ML AMP IVP PRN (16:40)
[2021-10-16] MEDS ORDERED: NOREPINEPHRIN 4 MG-0.9% NS PMX 4 MG/250 ML ML IV ONE (16:46)
[2021-10-16] MEDS ORDERED: DESMOPRESSIN ACETATE 26 MCG in SODIUM CHLORIDE 0.9% 50 ML IVPB ONE (16:48)
[2021-10-16 16:50] LABS: INR 1.1 (<1.2); Prothrombin Time 11.7 sec (9.0-12.0)
[2021-10-16 16:53] LABS: HGB 6.3 gm/dL (11.4-16.0)
[2021-10-16 16:55] LABS: Partial Thromboplastin Time 19.8 sec (22.0-30.0)
--- NOTE | 2021-10-16 16:59 | P.PN ---
Progress Note - Text 66-year-old white female patient had a extensive debridement of the lower extremity for marked cellulitis and skin necrosis we've been treating with IV antibiotic and local wound care patient developed a GI bleed we will change her dressing tomorrow with X a silver
[2021-10-16] MEDS ORDERED: MIDAZOLAM 2 MG/2 ML VIAL ONE ×2 (17:43→19:25)
[2021-10-16] MEDS ORDERED: PROPOFOL 10 MG/ML 20 ML VIAL IV ONE (17:43)
[2021-10-16] MEDS ORDERED: SUCCINYLCHOLINE CHLORIDE 200 MG/10 ML VIAL IV ONE (17:43)
--- NOTE | 2021-10-16 18:03 | P.PN ---
Progress Note - Text Progress Note Date: 10/16/21 A- team: Indication: Hematemesis Arrived on Scene to find: 2 emisis basins with ignificant amounts of bleeding, patient with continuing red stool coming that will not stop. Patient seen and examined at bedside. She denies any pain, light headednesss, dizziness, shortness of breath -throughout the course of she started to complain of abdominal pain and pressure on her back and in her vagianl area. She was having conitnus melanotic stools Vital signs reviewed General: non toxic, no distress, appears at stated age Derm: warm, dry Head: atraumatic, normocephalic, symmetric Eyes: EOMI, no lid lag, anicteric sclera Mouth: no lip lesion, mucus membranes moist Cardiovascular: S1S2 reg, no murmur, positive posterior tibial pulse bilateral, Lungs: Decreased bilateral, no rhonchi, no rales , no accessory muscle use Abdominal: soft, +tender to palpation suprapubic , no guarding, no appreciable organomegaly Psych: Alert, oriented, anxious Assessment: Acute GI bleed in patient on ASA and Plavix Hypotnesion due to acute blood loss Cardiomyopathy, EF 40-45% Subacute CVA B/L LE wounds newly discovered b/l LE wounds. Plan: 2L NS second IV 2 units pRBC 1 unit plts DDAVP X 1 D/W Dr. Mccall and will come emegently to bedside to scope D/W Dr. Modi as patient up titrated to ICU D/W anesthesia at bedside. Disposition: Transferred to ICU status- PAtient was already in the ICU as 3S over flow. A Total of 102 minutes of critical care time was spent on the complex care of this patient.
--- NOTE | 2021-10-16 18:46 | P.PCN ---
Date of Procedure: 10/16/21 Procedure(s) Performed: BRIEF HISTORY: Patient is a 66-year-old, pleasant, white female admitted to the hospital 5 days ago with acute lower extremity cellulitis and necrotic wound.. While in the hospital she developed acute upper GI bleed last night and was transferred to the intensive care unit last night. Hemoglobin dropped from 12-7 g/dL in the last 4 days. She was seen in consultation this morning and the plan was to proceed with an upper endoscopy tomorrow. However on 4 PM today she started having massive GI bleed with several episodes of hematemesis and right leg blood per rectum. Repeat hemoglobin was 6.2 g/dL and currently receiving 2 units of PRBC transfusion. She is scheduled for an upper endoscopy an emergency basis at the bedside. Patient intubated before the procedure. She remains on pressors. PROCEDURE PERFORMED: Esophagogastroduodenoscopy with Endo Clip placement. PREOPERATIVE DIAGNOSIS: Acute upper GI bleed. IV sedation per anesthesia. PROCEDURE: After informed consent was obtained, the patient was brought into the endoscopy unit. IV sedation was administered by Anesthesia under continuous monitoring. Initially the Olympus GIF-140 video endoscope was inserted into the mouth. Esophagus intubated without any difficulty. It was gradually advanced into the stomach there was large amount of fresh blood with large clots noted in the stomach. One of the clot was extending from the esophagus all the way into the stomach into the pylorus. At this time and advance the scope into the duodenal bulb and immediately in the duodenal bulb there was a 2 cm ulceration identified with a clean base but one small visible vessel with no active bleeding. I placed 2 endoclips on the visible vessel. Following this I continue to suction the clots thoroughly. The scope was removed and the therapeutic duodenoscope was then introduced into the mouth and esophagus intu bated without any difficulty and was gradually advanced into the stomach and most of the clots from the antrum and pylorus resection. As this was being done there was worsening bleeding And that the pylorus and the duodenal bulb could not be adequately visualized. I suctioned approximately 1 L of fresh blood. Following this the scope was removed and a regular EGD scope was passed from the mouth and esophagus intubated without any difficulty and was able to advance the scope into the pylorus and into the duodenum. There was a large adherent clot noted along the duodenal sweep as well as in the duodenal bulb and a could not visualize this area despite thorough irrigation as well as aggressive suctioning. There was significant amount of bleeding going on and the procedure was performed for almost 30 minutes. Because of nonvisualization, no therapeutic intervention could be performed. The scope at this time was withdrawn to the stomach, adequately insufflated with air, and upon careful examination, mucosa of the antrum, body appeared normal. There was large amount of fresh blood with clots noted in the, cardia and the fundus. The scope was then withdrawn into the esophagus. The GE junction was located at 39 cm from the incisors. The esophagus appeared normal. There were no erosions or ulcerations seen and the patient tolerated the procedure well. She continued to remain h ypertensive and presently on pressors. IMPRESSION: 1. Large amount of fresh blood with clots noted in the stomach extending into the pylorus and the duodenum. 2. 2 cm ulceration in the duodenal bulb with a small visible vessel status post Endo Clip placement 3. Large adherent clot noted in the pylorus extending into the duodenal bulb which could not be removed. Significant amount of bleeding noted in this area and most likely dealing with a large duodenal ulcer.. RECOMMENDATIONS: The findings of this examination were discussed with the patient 'family. At this time and continue to resuscitate with blood products. Dr. Soto was present during the endoscopic procedure. The findings of this examination were discussed with the patient's family. Possible surgical intervention being discussed with the family by Dr. Soto. In the meantime continue with Protonix and continue resuscitation with blood products..
[2021-10-16] MEDS ORDERED: CALCIUM GLUCONATE IN NACL 1 GM in SALINE 1 100ML.BAG IVPB ONE (18:53)
--- NOTE | 2021-10-16 19:04 | P.PN ---
Subjective Progress Note Date: 10/16/21 Principal diagnosis: Bilateral lower extremity venous stasis ulcer and cellulitis Patient is a 66-year-old female who has not seen a physician in 20 years presented to the hospital with significant bilateral lower extremity necrotic wound and secondary cellulitis in this patient who is status post surgical debridement of these wounds in the OR on 10/13/2021. Patient has been transferred to ICU because of GI bleed On today's evaluation that is 10/16/2021, the patient remains to be afebrile, the patient is breathing comfortably, the patient denies chest pain shortness of breath or cough , the patient pain to bilateral lower extremity wound is currently controlled and vomiting or any diarrhea Objective - Vital Signs Vital signs: Vital Signs Temp 98.1 F 10/16/21 12:00 Pulse 80 10/16/21 13:00 Resp 33 H 10/16/21 13:00 BP 86/60 10/16/21 13:00 Pulse Ox 93 L 10/16/21 12:00 Intake & Output 10/15/21 10/16/21 10/16/21 18:59 06:59 18:59 Intake Total 500 250 Output Total 500 340 225 Balance -500 160 25 Weight 83.8 kg Intake: IV 400 250 Lactated Ringers 1,000 ml 400 250 @ 50 mls/hr IV .Q20H [facility] Rx#:[id number] Intake, IV Titration 100 Amount Magnesium Sulfate-D5w Pmx 100 1 gm In Dextrose/Water 1 100ml.bag @ 100 mls/hr IVPB Q1H [facility] Rx#: [id number] Output: Urine 500 340 225 Uretheral (Marie) 500 Other: Voiding Method Indwelling Catheter Indwelling Catheter Indwelling Catheter # Bowel Movements 4 1 2 - Exam GENERAL DESCRIPTION: An elderly female lying in bed in no distress RESPIRATORY SYSTEM: Unlabored breathing , decreased breath sounds at bases HEART: S1 S2 regular rate and rhythm , ABDOMEN: Soft , no tenderness EXTREMITIES: Bilateral lower extremity wounds are currently dressed no drainage on the dressing - Labs CBC & Chem 7: 10/16/21 16:23 10/16/21 06:25 Labs: Abnormal Lab Results - Last 24 Hours (Table) 10/15/21 10/15/21 10/15/21 Range/Units 16:32 20:38 22:49 WBC 14.5 H (3.8-10.6) k/uL RBC 3.01 L (3.80-5.40) m/uL Hgb 8.6 L (11.4-16.0) gm/dL Hct 28.3 L (34.0-46.0) % MCHC 30.3 L (31.0-37.0) g/dL RDW (11.5-15.5) % Sodium (137-145) mmol/L Chloride (98-107) mmol/L Carbon Dioxide (22-30) mmol/L BUN (7-17) mg/dL Glucose (74-99) mg/dL POC Glucose (mg/dL) 116 H (75-99) mg/dL Calcium (8.4-10.2) mg/dL Total Protein (6.3-8.2) g/dL Albumin (3.5-5.0) g/dL Stool Occult Blood Positive H (Negative) 10/16/21 10/16/21 10/16/21 Range/Units 01:03 06:25 06:25 WBC 12.1 H (3.8-10.6) k/uL RBC 2.70 L 2.71 L (3.80-5.40) m/uL Hgb 7.5 L 7.7 L (11.4-16.0) gm/dL Hct 24.9 L 25.5 L (34.0-46.0) % MCHC 30.2 L 30.3 L (31.0-37.0) g/dL RDW 16.1 H (11.5-15.5) % Sodium 135 L (137-145) mmol/L Chloride 110 H (98-107) mmol/L Carbon Dioxide 20 L (22-30) mmol/L BUN 19 H (7-17) mg/dL Glucose 120 H (74-99) mg/dL POC Glucose (mg/dL) (75-99) mg/dL Calcium 7.0 L (8.4-10.2) mg/dL Total Protein 4.6 L (6.3-8.2) g/dL Albumin 1.9 L (3.5-5.0) g/dL Stool Occult Blood (Negative) 10/16/21 10/16/21 10/16/21 Range/Units 06:52 11:17 11:45 WBC (3.8-10.6) k/uL RBC 2.69 L (3.80-5.40) m/uL Hgb 7.8 L (11.4-16.0) gm/dL Hct 24.5 L (34.0-46.0) % MCHC (31.0-37.0) g/dL RDW 16.3 H (11.5-15.5) % Sodium (137-145) mmol/L Chloride (98-107) mmol/L Carbon Dioxide (22-30) mmol/L BUN (7-17) mg/dL Glucose (74-99) mg/dL POC Glucose (mg/dL) 133 H 136 H (75-99) mg/dL Calcium (8.4-10.2) mg/dL Total Protein (6.3-8.2) g/dL Albumin (3.5-5.0) g/dL Stool Occult Blood (Negative) Microbiology - Last 24 Hours (Table) 10/13/21 14:20 Gram Stain - Final Leg - Right Tissue Culture - Final Strep pyogenes (grp a) Pseudomonas aeruginosa Escherichia coli 10/11/21 15:44 Blood Culture - Preliminary Blood No Growth after 96 hours 10/11/21 15:44 Blood Culture - Preliminary Blood No Growth after 96 hours Assessment and Plan (1) Cellulitis Current Visit: Yes Status: Acute Code(s): L03.90 - CELLULITIS, UNSPECIFIED SNOMED Code(s): 924585707 Plan: 1patient with bilateral lower extremity nonhealing wound and cellulitis seems to be more of a venous stasis ulcers with secondary cellulitis and likely from gram-positive skin pb less likely gram-negative infection in this patient has not seen a physician for 20 years less likelihood of a MRSA infection. 2 patient is status post surgical debridement and deep culture which are currently growing multiple pathogens including Pseudomonas strep 3patient to continue with cefepime to cover for the multiple pathogen the patient has grown from her leg wound cultures including Pseudomonas MSSA strep, local wound care per vascular surgery Time with Patient: Less than 30
[2021-10-16] MEDS: NOREPINEPHRINE 4 MG in SODIUM CHLORIDE 0.9% 250 ML IV SCH ×2 (19:08→22:09)
--- NOTE | 2021-10-16 19:09 | P.GSCN ---
History of Present Illness Consult date: 10/16/21 Reason for Consult: GI bleed History of present illness: 66-year-old female hospitalized because of confusion and lower extremity wounds. Patient underwent operative debridement by vascular surgery during this hospital stay. 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 Patient has had some delirium over the last 2 days or so. She was started on aspirin and Plavix for her suspected CVA. P atient also with heavy NSAID use at home. Patient had multiple bloody stools overnight. She was transferred to the ICU for further evaluation. Patient had progressive hypotension and subsequent hematemesis. GI was consulted. She initially was scheduled for EGD today however she ate some food for breakfast and was postponed until tomorrow. This afternoon the patient's vital signs worsened and urgent EGD was scheduled and we were consulted for possible surgical intervention. I was present at the bedside evaluating the patient when she underwent EGD by Dr. Hernandez. EGD showed a large volume of blood throughout the stomach. Over 1 L of blood was evacuated. There appeared to be active blee ding coming from the duodenum. The was a ulceration in the duodenum but did not have an adherent clot. 2 clips were fired on that location. On the opposite side of the wall there was a larger adherent clot present and this was where we were suspecting active bleeding coming from. Unfortunately despite using a therapeutic scope we could not visualize the ulcer base in the duodenal bulb because of the degree of blood that was both active and adherent to that suspected ulcer site. Patient remained hypotensive during the majority of the procedure. Review of Systems ROS unobtainable: due to endotracheal tube Past Medical History Additional Past Medical History / Comment(s): lower back pain History of Any Multi-Drug Resistant Organisms: None Reported Past Surgical History: Tubal Ligation Past Anesthesia/Blood Transfusion Reactions: No Reported Reaction Past Psychological History: No Psychological Hx Reported Smoking Status: Current every day smoker Past Alcohol Use History: None Reported Past Drug Use History: None Reported - Past Family History family Additional Family Medical History / Comment(s): heart disease chf Medications and Allergies Home Medications Medication Instructions Recorded Confirmed Type Ascorbic Acid [Vitamin C] 1,000 mg PO DAILY 10/11/21 10/11/21 History Cholecalciferol [Vitamin D3 (125 125 mcg PO DAILY 10/11/21 10/11/21 History Mcg = 5000 Iu)] Flaxseed Oil 1,000 mg PO DAILY 10/11/21 10/11/21 History Ibuprofen [Motrin Ib] 600 mg PO Q8H PRN 10/11/21 10/11/21 History Magnesium Oxide [Mag-Ox] 400 mg PO DAILY 10/11/21 10/11/21 History Multivitamins, Thera [Multivitamin 1 tab PO DAILY 10/11/21 10/11/21 History (formulary)] Naproxen Sodium [Aleve] 220 mg PO BID PRN 10/11/21 10/11/21 History [place]-3 Fatty Acids/Fish Oil [Fish 1 cap PO DAILY 10/11/21 10/11/21 History Oil 1,000 mg Softgel] Potassium Gluconate [Potassium 99 mg PO DAILY 10/11/21 10/11/21 History Gluconate ER] Sennosides [Ex-Lax Chew] 15 mg PO DAILY PRN 10/11/21 10/11/21 History Vitamin A [Vitamin A (8,000 Units 2,400 mcg PO DAILY 10/11/21 10/11/21 History = 2,400 MCG)] Allergies Allergy/AdvReac Type Severity Reaction Status Date / Time No Known Allergies Allergy Verified 10/11/21 20:24 Surgical - Exam Vital Signs Temp Pulse Resp BP Pulse Ox 97.6 F 62 18 98/62 97 10/11/21 14:56 10/11/21 14:56 10/11/21 14:56 10/11/21 14:56 10/11/21 14:56 Physical exam: General: Well-developed, well-nourished HEENT: Intubated Abdomen: Nontender, mild distention Extremities: Lower extremity bandages in place Neuro: On the ventilator Results - Labs 10/16/21 16:23 10/16/21 06:25 Abnormal Lab Results - Last 24 Hours (Table) 10/15/21 10/15/21 10/15/21 Range/Units 16:32 20:38 22:49 WBC 14.5 H (3.8-10.6) k/uL RBC 3.01 L (3.80-5.40) m/uL Hgb 8.6 L (11.4-16.0) gm/dL Hct 28.3 L (34.0-46.0) % MCHC 30.3 L (31.0-37.0) g/dL RDW (11.5-15.5) % APTT (22.0-30.0) sec Sodium (137-145) mmol/L Chloride (98-107) mmol/L Carbon Dioxide (22-30) mmol/L BUN (7-17) mg/dL Glucose (74-99) mg/dL POC Glucose (mg/dL) 116 H (75-99) mg/dL Calcium (8.4-10.2) mg/dL Total Protein (6.3-8.2) g/dL Albumin (3.5-5.0) g/dL Stool Occult Blood Positive H (Negative) Crossmatch 10/16/21 10/16/21 10/16/21 Range/Units 01:03 06:25 06:25 WBC 12.1 H (3.8-10.6) k/uL RBC 2.70 L 2.71 L (3.80-5.40) m/uL Hgb 7.5 L 7.7 L (11.4-16.0) gm/dL Hct 24.9 L 25.5 L (34.0-46.0) % MCHC 30.2 L 30.3 L (31.0-37.0) g/dL RDW 16.1 H (11.5-15.5) % APTT (22.0-30.0) sec Sodium 135 L (137-145) mmol/L Chloride 110 H (98-107) mmol/L Carbon Dioxide 20 L (22-30) mmol/L BUN 19 H (7-17) mg/dL Glucose 120 H (74-99) mg/dL POC Glucose (mg/dL) (75-99) mg/dL Calcium 7.0 L (8.4-10.2) mg/dL Total Protein 4.6 L (6.3-8.2) g/dL Albumin 1.9 L (3.5-5.0) g/dL Stool Occult Blood (Negative) Crossmatch 10/16/21 10/16/21 10/16/21 Range/Units 06:52 11:17 11:45 WBC (3.8-10.6) k/uL RBC 2.69 L (3.80-5.40) m/uL Hgb 7.8 L (11.4-16.0) gm/dL Hct 24.5 L (34.0-46.0) % MCHC (31.0-37.0) g/dL RDW 16.3 H (11.5-15.5) % APTT (22.0-30.0) sec Sodium (137-145) mmol/L Chloride (98-107) mmol/L Carbon Dioxide (22-30) mmol/L BUN (7-17) mg/dL Glucose (74-99) mg/dL POC Glucose (mg/dL) 133 H 136 H (75-99) mg/dL Calcium (8.4-10.2) mg/dL Total Protein (6.3-8.2) g/dL Albumin (3.5-5.0) g/dL Stool Occult Blood (Negative) Crossmatch 10/16/21 10/16/21 10/16/21 Range/Units 16:23 16:23 16:23 WBC 13.9 H (3.8-10.6) k/uL RBC 2.18 L (3.80-5.40) m/uL Hgb 6.3 L* D (11.4-16.0) gm/dL Hct 20.2 L (34.0-46.0) % MCHC (31.0-37.0) g/dL RDW 16.3 H (11.5-15.5) % APTT 19.8 L (22.0-30.0) sec Sodium (137-145) mmol/L Chloride (98-107) mmol/L Carbon Dioxide (22-30) mmol/L BUN (7-17) mg/dL Glucose (74-99) mg/dL POC Glucose (mg/dL) (75-99) mg/dL Calcium (8.4-10.2) mg/dL Total Protein (6.3-8.2) g/dL Albumin (3.5-5.0) g/dL Stool Occult Blood (Negative) Crossmatch See Detail Microbiology - Last 24 Hours (Table) 10/11/21 15:44 Blood Culture - Preliminary Blood No Growth after 120 hours 10/11/21 15:44 Blood Culture - Preliminary Blood No Growth after 120 hours 10/13/21 14:20 Gram Stain - Final Leg - Right Tissue Culture - Final Strep pyogenes (grp a) Pseudomonas aeruginosa Escherichia coli Diabetes panel 10/16/21 Range/Units 06:25 Sodium 135 L (137-145) mmol/L Potassium 3.9 (3.5-5.1) mmol/L Chloride 110 H (98-107) mmol/L Carbon Dioxide 20 L (22-30) mmol/L BUN 19 H (7-17) mg/dL Creatinine 0.55 (0.52-1.04) mg/dL Glucose 120 H (74-99) mg/dL Calcium 7.0 L (8.4-10.2) mg/dL AST 32 (14-36) U/L ALT 15 (4-34) U/L Alkaline Phosphatase 88 (38-126) U/L Total Protein 4.6 L (6.3-8.2) g/dL Albumin 1.9 L (3.5-5.0) g/dL Calcium panel 10/16/21 Range/Units 06:25 Calcium 7.0 L (8.4-10.2) mg/dL Albumin 1.9 L (3.5-5.0) g/dL Pituitary panel 10/16/21 Range/Units 06:25 Sodium 135 L (137-145) mmol/L Potassium 3.9 (3.5-5.1) mmol/L Chloride 110 H (98-107) mmol/L Carbon Dioxide 20 L (22-30) mmol/L BUN 19 H (7-17) mg/dL Creatinine 0.55 (0.52-1.04) mg/dL Glucose 120 H (74-99) mg/dL Calcium 7.0 L (8.4-10.2) mg/dL Adrenal panel 10/16/21 Range/Units 06:25 Sodium 135 L (137-145) mmol/L Potassium 3.9 (3.5-5.1) mmol/L Chloride 110 H (98-107) mmol/L Carbon Dioxide 20 L (22-30) mmol/L BUN 19 H (7-17) mg/dL Creatinine 0.55 (0.52-1.04) mg/dL Glucose 120 H (74-99) mg/dL Calcium 7.0 L (8.4-10.2) mg/dL Total Bilirubin 0.9 (0.2-1.3) mg/dL AST 32 (14-36) U/L ALT 15 (4-34) U/L Alkaline Phosphatase 88 (38-126) U/L Total Protein 4.6 L (6.3-8.2) g/dL Albumin 1.9 L (3.5-5.0) g/dL Assessment and Plan (1) Upper GI bleed Narrative/Plan: 66-year-old female with active upper GI bleeding. Clinical scenario discussed in detail with the patient's family in the ICU waiting room on more than one occasion both before and after endoscopy. Options of operative intervention versus supportive care reviewed. Certainly nonoperative intervention carries a extremely high mortality rate. Even with surgery mortality rate is high unfortunately given the patient's comorbidities and degree of active bleeding. She is not a candidate at this time given her instability for transfer for angioembolization and this was discussed as well. Patient's would like us to proceed with surgery at this time. We'll proceed with exploratory laparotomy with control of bleeding duodenal ulcer. Risks of recurrent bleeding, staple line dehiscence, peritonitis, hernia, abscess, respiratory failure, cardiac complications, and reviewed. They understand and wish for us to proceed. Current Visit: Yes Status: Acute Code(s): K92.2 - GASTROINTESTINAL HEMORRHAGE, UNSPECIFIED SNOMED Code(s): 19004871
--- NOTE | 2021-10-16 19:10 | P.PN ---
Subjective Progress Note Date: 10/15/21 Principal diagnosis: Bilateral lower extremity venous stasis ulcer and cellulitis Patient is a 66-year-old female who has not seen a physician in 20 years presented to the hospital with significant bilateral lower extremity necrotic wound and secondary cellulitis in this patient who is status post surgical debridement of these wounds in the OR on 10/13/2021. On today's evaluation that is 10/15/2021, the patient is afebrile, the patient is breathing comfortably on room air, the patient denies chest pain shortness of breath or cough , the patient pain to bilateral lower extremity wound is currently controlled and vomiting or any diarrhea has been reported by the nursing staff Objective - Exam Vital signs : Blood pressure 130/70 , pulse 70, temperature 98.8F GENERAL DESCRIPTION: An elderly female lying in bed in no distress RESPIRATORY SYSTEM: Unlabored breathing , decreased breath sounds at bases HEART: S1 S2 regular rate and rhythm , ABDOMEN: Soft , no tenderness EXTREMITIES: Bilateral lower extremity wounds are currently dressed no drainage on the dressing - Labs CBC & Chem 7: 10/16/21 16:23 10/16/21 06:25 Labs: Abnormal Lab Results - Last 24 Hours (Table) 10/15/21 10/15/21 10/15/21 Range/Units 16:32 20:38 22:49 WBC 14.5 H (3.8-10.6) k/uL RBC 3.01 L (3.80-5.40) m/uL Hgb 8.6 L (11.4-16.0) gm/dL Hct 28.3 L (34.0-46.0) % MCHC 30.3 L (31.0-37.0) g/dL RDW (11.5-15.5) % APTT (22.0-30.0) sec Sodium (137-145) mmol/L Chloride (98-107) mmol/L Carbon Dioxide (22-30) mmol/L BUN (7-17) mg/dL Glucose (74-99) mg/dL POC Glucose (mg/dL) 116 H (75-99) mg/dL Calcium (8.4-10.2) mg/dL Total Protein (6.3-8.2) g/dL Albumin (3.5-5.0) g/dL Stool Occult Blood Positive H (Negative) Crossmatch 10/16/21 10/16/21 10/16/21 Range/Units 01:03 06:25 06:25 WBC 12.1 H (3.8-10.6) k/uL RBC 2.70 L 2.71 L (3.80-5.40) m/uL Hgb 7.5 L 7.7 L (11.4-16.0) gm/dL Hct 24.9 L 25.5 L (34.0-46.0) % MCHC 30.2 L 30.3 L (31.0-37.0) g/dL RDW 16.1 H (11.5-15.5) % APTT (22.0-30.0) sec Sodium 135 L (137-145) mmol/L Chloride 110 H (98-107) mmol/L Carbon Dioxide 20 L (22-30) mmol/L BUN 19 H (7-17) mg/dL Glucose 120 H (74-99) mg/dL POC Glucose (mg/dL) (75-99) mg/dL Calcium 7.0 L (8.4-10.2) mg/dL Total Protein 4.6 L (6.3-8.2) g/dL Albumin 1.9 L (3.5-5.0) g/dL Stool Occult Blood (Negative) Crossmatch 10/16/21 10/16/21 10/16/21 Range/Units 06:52 11:17 11:45 WBC (3.8-10.6) k/uL RBC 2.69 L (3.80-5.40) m/uL Hgb 7.8 L (11.4-16.0) gm/dL Hct 24.5 L (34.0-46.0) % MCHC (31.0-37.0) g/dL RDW 16.3 H (11.5-15.5) % APTT (22.0-30.0) sec Sodium (137-145) mmol/L Chloride (98-107) mmol/L Carbon Dioxide (22-30) mmol/L BUN (7-17) mg/dL Glucose (74-99) mg/dL POC Glucose (mg/dL) 133 H 136 H (75-99) mg/dL Calcium (8.4-10.2) mg/dL Total Protein (6.3-8.2) g/dL Albumin (3.5-5.0) g/dL Stool Occult Blood (Negative) Crossmatch 10/16/21 10/16/21 10/16/21 Range/Units 16:23 16:23 16:23 WBC 13.9 H (3.8-10.6) k/uL RBC 2.18 L (3.80-5.40) m/uL Hgb 6.3 L* D (11.4-16.0) gm/dL Hct 20.2 L (34.0-46.0) % MCHC (31.0-37.0) g/dL RDW 16.3 H (11.5-15.5) % APTT 19.8 L (22.0-30.0) sec Sodium (137-145) mmol/L Chloride (98-107) mmol/L Carbon Dioxide (22-30) mmol/L BUN (7-17) mg/dL Glucose (74-99) mg/dL POC Glucose (mg/dL) (75-99) mg/dL Calcium (8.4-10.2) mg/dL Total Protein (6.3-8.2) g/dL Albumin (3.5-5.0) g/dL Stool Occult Blood (Negative) Crossmatch See Detail Microbiology - Last 24 Hours (Table) 10/11/21 15:44 Blood Culture - Preliminary Blood No Growth after 120 hours 10/11/21 15:44 Blood Culture - Preliminary Blood No Growth after 120 hours 10/13/21 14:20 Gram Stain - Final Leg - Right Tissue Culture - Final Strep pyogenes (grp a) Pseudomonas aeruginosa Escherichia coli Assessment and Plan (1) Cellulitis Current Visit: Yes Status: Acute Code(s): L03.90 - CELLULITIS, UNSPECIFIED SNOMED Code(s): 331328276 Plan: 1patient with bilateral lower extremity nonhealing wound and cellulitis seems to be more of a venous stasis ulcers with secondary cellulitis and likely from gram-positive skin pb less likely gram-negative infection in this patient has not seen a physician for 20 years less likelihood of a MRSA infection. 2 patient is status post surgical debridement and deep culture which are currently growing multiple pathogens including Pseudomonas strep 3patient antibiotics will be switched over to cefepime to cover for the multiple pathogen the patient has grown from her leg wound cultures including Pseudomonas MSSA strep and continue supportive care Time with Patient: Less than 30
--- NOTE | 2021-10-16 19:24 | XR ---
EXAMINATION TYPE: XR chest 1V portable DATE OF EXAM: 10/16/2021 COMPARISON: None INDICATION: ET tube placement, difficulty breathing TECHNIQUE: Single frontal view of the chest is obtained. FINDINGS: The heart size is mild the prominent. The pulmonary vasculature is normal. The lungs are clear. Endotracheal tube tip is 1.8 cm above the emily. Nasogastric tube tip is within the left upper quadr ant of the abdomen. IMPRESSION: 1. No acute pulmonary process radiographically apparent. 2. Lines and catheters discussed above..
[2021-10-16] MEDS ORDERED: fentaNYL (PF) 50 MCG/ML 2 ML AMP ONE (19:25)
[2021-10-16] MEDS ORDERED: VECURONIUM 10 MG VIAL IV ONE (19:25)
[2021-10-16] MEDS ORDERED: LACTATED RINGERS 1,000 ML IV ONE ×2 (19:25)
[2021-10-16] MEDS ORDERED: CALCIUM GLUCONATE 1 GM/10 ML VIAL ONE (19:25)
[2021-10-16] MEDS ORDERED: ceFAZolin 1,000 MG VIAL ONE (19:25)
[2021-10-16] MEDS ORDERED: SODIUM CHLORIDE 0.9% 100 ML BAG ONE (19:25)
[2021-10-16] MEDS ORDERED: VASOPRESSIN 20 UNIT/ML 1 ML VIAL ONE (19:25)
[2021-10-16] MEDS ORDERED: PHENYLEPHRINE-0.9% NACL SYG 1,000 MCG/10 ML SYRINGE ONE (19:25)
[2021-10-16] MEDS ORDERED: SODIUM CHLORIDE 0.9% 500 ML 500 ML IV ONE (20:00)
--- NOTE | 2021-10-16 20:25 | P.ANPRN ---
Procedure Note - Anesthesia - Invasive Line Left Central Line Time Out Performed: Yes (1921) Date of Procedure: 10/16/21 Time of Procedure: 19:23 Location of Patient: PreOp Preparation: Sterile Prep, Sterile Dressing Arterial Line Location: Radial (left) Ultrasound Used: Yes Purpose - Visualization and Identification of Vasculature: Yes Needle Guage: 18g angio Image Stored and Saved: No (emergently placed. Printer not working) Narrative: Central line placement per sterile protocol utilized. sterile protocol. Left neck prepped. +angio +cvp +jwire +uneventful dilation and introduction left TLC
[2021-10-16] MEDS ORDERED: metroNIDAZOLE-NS PMX 500 MG in SALINE 1 100ML.BAG IVPB STA (21:09)
--- NOTE | 2021-10-16 21:40 | P.OP ---
Date of Procedure: 10/16/21 Procedure(s) Performed: PREOPERATIVE DIAGNOSIS: Upper GI bleed POSTOPERATIVE DIAGNOSIS: Duodenal ulcer with perforation and active bleeding PROCEDURE: Exploratory laparotomy with repair of perforated duodenal ulcer and control of bleeding, pyloroplasty SURGEON: Charles EBL: 200 mL ANESTHESIA: Gen. COMPLICATIONS: None OPERATIVE PROCEDURE: Patient placed on the operating table in the supine position. The patient was placed under general anesthesia. A midline incision was made from the xiphoid to the periumbilical location using a scalpel. The subcutaneous tissues and fascia were divided using electrocautery. The Bookwalter retractor was utilized. The stomach and small intestine appeared distended from the recent endoscopy. As I palpated the duodenal sweep I noted that the duodenum was densely adherent to the infundibulum of the gallbladder. At that time dissection between the 2 structures bluntly occurred and resulted in the identification of a perforated anterior duodenal ulcer. One of the clips that Dr. Hernandez had placed was evident right at the edge of this ulcer. This was removed. The other clip was not visualized. A longitudinal incision was made from that point proximally across the pylorus using electrocautery. Old clot was evacuated from the duodenum at that time. Initially as we were beginning to inspect the posterior aspect of the duodenum there was no evidence of bleeding. I could see a small black discolored area in the center of a large posterior ulcer. As we were preparing to stitch this area active bleeding was noted from the ulcer base. Interrupted 3-0 GI silk sutures were used to ligate the bleeding vessel. Sutures are placed superior inferior and medially. No further bleeding was seen at that time. The longitudinal incision that was created was then closed transversely as a pyloroplasty. An inner running 3-0 Vicryl mucosal inverting suture was used. Interrupted 3-0 Vicryl sutures were placed where there appeared to be some laxity. Following that interrupted 3-0 GI silk Lambert sutures were placed externally. No evidence of leakage from the pyloroplasty was noted as the stomach was compressed. A drain was brought into the abdominal cavity from the right upper quadrant. This went along the infra hepatic gutter across the mariel hepatis anterior and superior to the pyloroplasty. The abdomen was irrigated. No bleeding was seen. The patient's gallbladder where it had been adherent to the ulcer was carefully inspected. The gallbladder was mildly tense and as I compressed the gallbladder there was no evidence of any biliary drainage from the area of scar tissue from where the ulcer had been present. No cholecystectomy took place. I could not palpate any stones. The midline fascia was then closed using 2 separate running double- stranded #1 PDS sutures. The saphenous tissues were irrigated. The skin was loosely reapproximated with otis. Sterile dressings and abdominal binder was applied. DISPOSITION: Guarded to the ICU
[2021-10-16 21:58] LABS: Glucose,Whole Blood 254 mg/dL (75-99)
[2021-10-16 22:04] LABS: HCT 26.4 % (34.0-46.0); Hypochromasia Slight; MCH 28.9 pg (25.0-35.0); MCHC 31.3 g/dL (31.0-37.0); MCV 92.4 fL (80.0-100.0); Mean Platelet Volume 8.2; Platelet Count 237 k/uL (150-450); RBC 2.86 m/uL (3.80-5.40); RDW 14.8 % (11.5-15.5)
[2021-10-16 22:08] LABS: ABG Base Excess -13.5 mmol/L; ABG HCO3 16 mmol/L (21-25); ABG Oxygen Saturation 99.5 % (94-97); ABG PCO2 48 mmHg (35-45); ABG PO2 >400 mmHg (83-108); ABG TCO2 17 mmol/L (19-24); Allen Test Performed? Yes
[2021-10-16 22:11] LABS: ABG PH 7.13 (7.35-7.45)
[2021-10-16 22:17] LABS: WBC 62.5 k/uL (3.8-10.6)
[2021-10-16 22:18] LABS: HGB 8.3 gm/dL (11.4-16.0)
[2021-10-16] MEDS ORDERED: SODIUM BICARB 8.4% 50 ML SYR (1 MEQ/ML) IV STA (22:23)
[2021-10-16 22:27] LABS: INR 1.4 (<1.2); Partial Thromboplastin Time 28.7 sec (22.0-30.0); Potassium 3.9 mmol/L (3.5-5.1); Prothrombin Time 14.3 sec (9.0-12.0)
[2021-10-16] MEDS ORDERED: DEXTROSE 5% IN WATER 1,000 ML with SODIUM BICARB (1 MEQ/ML) 150 ML IV SCH (22:30)
[2021-10-16 22:37] LABS: Band Neutrophils % 21 %; Calcium 5.9 mg/dL (8.4-10.2); Eosinophils # (M) 0.63 k/uL (0-0.7); Lymphocytes # (M) 1.25 k/uL (1.0-4.8); Metamyelocytes # (M) 3.75 k/uL (0); Metamyelocytes % 6 %; Monocytes # (M) 0.63 k/uL (0-1.0); Myelocytes # (M) 6.25 k/uL (0); Myelocytes % 10 %; Neutrophils % (M) 59 %; Nucleated Red Blood Cells 0 /100 WBC (0-0); Total Cells Counted 100
[2021-10-16 22:38] LABS: Anisocytosis (M) Present; Polychromasia Present
[2021-10-16] MEDS: INSULIN ASPART (NovoLOG) 100 UNIT/ML VIAL SQ SCH (22:58)
[2021-10-17 00:03] LABS: Glucose,Whole Blood 221 mg/dL (75-99)
[2021-10-17] MEDS: INSULIN ASPART (NovoLOG) 100 UNIT/ML VIAL SQ SCH ×5 (00:04→23:34)
[2021-10-17] MEDS ORDERED: CALCIUM GLUCONATE IN NACL 1 GM in SALINE 1 100ML.BAG IVPB ONE ×2 (01:15→05:59)
[2021-10-17] MEDS: NOREPINEPHRINE 8 MG in SODIUM CHLORIDE 0.9% 250 ML IV SCH ×3 (01:37→18:24)
[2021-10-17] MEDS: LACTATED RINGERS 1,000 ML IV SCH ×2 (03:45→16:04)
[2021-10-17] MEDS ORDERED: LACTATED RINGERS 1,000 ML IV SCH (05:15)
[2021-10-17 05:40] LABS: HCT 27.5 % (34.0-46.0); HGB 9.2 gm/dL (11.4-16.0); MCH 28.8 pg (25.0-35.0); MCHC 33.3 g/dL (31.0-37.0); Platelet Count 213 k/uL (150-450); RBC 3.18 m/uL (3.80-5.40); RDW 15.5 % (11.5-15.5); WBC 48.6 k/uL (3.8-10.6)
[2021-10-17 05:45] LABS: MCV 86.3 fL (80.0-100.0)
[2021-10-17 05:47] LABS: INR 1.2 (<1.2); Prothrombin Time 13.1 sec (9.0-12.0)
[2021-10-17 05:48] LABS: ABG Base Excess -3.6 mmol/L; ABG HCO3 22 mmol/L (21-25); ABG Oxygen Saturation 99.5 % (94-97); ABG PCO2 36 mmHg (35-45); ABG PH 7.38 (7.35-7.45); ABG PO2 169 mmHg (83-108); ABG TCO2 23 mmol/L (19-24); Allen Test Performed? Yes
[2021-10-17 05:48] LABS: Ionized Calcium 4.6 mg/dL (4.5-5.3)
[2021-10-17 05:55] LABS: Albumin 1.6 g/dL (3.5-5.0); Magnesium 1.5 mg/dL (1.6-2.3); Potassium 4.1 mmol/L (3.5-5.1); Total Bilirubin 1.1 mg/dL (0.2-1.3); Total Protein 3.6 g/dL (6.3-8.2)
[2021-10-17 05:57] LABS: Calcium 6.4 mg/dL (8.4-10.2)
[2021-10-17] MEDS ORDERED: Magnesium Replacement Protocol 1 EACH MISC MISCELLANE PRN (05:58)
[2021-10-17 06:03] LABS: Anisocytosis (M) Present; Band Neutrophils % 8 %; Lymphocytes # (M) 0.97 k/uL (1.0-4.8); Monocytes # (M) 0.49 k/uL (0-1.0); Neutrophils % (M) 89 %; Nucleated Red Blood Cells 0 /100 WBC (0-0); Total Cells Counted 100
[2021-10-17 06:11] LABS: Glucose,Whole Blood 155 mg/dL (75-99)
[2021-10-17] MEDS: MAGNESIUM SULFATE-D5W PMX 1 GM in DEXTROSE/WATER 1 100ML.BAG IVPB SCH ×2 (06:12→08:44)
--- NOTE | 2021-10-17 08:05 | XR ---
EXAMINATION TYPE: XR chest 1V portable DATE OF EXAM: 10/17/2021 COMPARISON: 10/16/2021 HISTORY: SOB, Follow Up FINDINGS: Indwelling tubes and catheters are unchanged. No change in bibasilar opacities. Stable appearance of the cardio-mediastinal structures at this time. Pleural effusion unchanged. IMPRESSION: 1. Stable portable chest. Clinical correlation and follow up until resolution is recommended.
[2021-10-17] MEDS: PANTOPRAZOLE 40 MG/10 ML VIAL IVP SCH ×2 (08:51→19:38)
[2021-10-17] MEDS: ATORVASTATIN 40 MG TAB PO SCH ×2 (08:51→09:57)
[2021-10-17] MEDS: CHLORHEXIDINE GLUCONATE 15 ML CUP MUCOUS MEM SCH ×2 (08:51→19:38)
[2021-10-17] MEDS: GABAPENTIN 100 MG CAP PO SCH ×4 (08:51→21:55)
[2021-10-17] MEDS: CEFEPIME 2 GM in SODIUM CHLORIDE 0.9% 100 ML IVPB SCH ×2 (08:51→19:38)
--- NOTE | 2021-10-17 09:58 | XR ---
EXAMINATION TYPE: XR chest 1V portable DATE OF EXAM: 10/17/2021 COMPARISON: 10/17/2021 HISTORY: SOB, Follow Up FINDINGS: Endotracheal tube is 2.8 cm from the emily. Left IJ central venous line has been pulled back and is at the SVC/ innominate junction. NG tube is seen coursing into the stomach. Increased density left lower lobe may reflect underlying atelectasis. Stable appearance of the cardio-mediastinal structures at this time. IMPRESSION: 1. Overall stable chest. Indwelling tubes and catheters as noted.
--- NOTE | 2021-10-17 11:20 | P.CNPUL ---
History of Present Illness Consult date: 10/17/21 Requesting physician: Dashawn Soto Reason for consult: other (ICU management) Chief complaint: Upper GI bleeding History of present illness: This is a 66-year-old female with history of multiple medical problems, patient was admitted initially on 10/11/2021 with mostly bilateral lower extremities cellulitis. Patient was seen by many consultants including internal medicine, neurology, psychiatry, vascular surgery, cardiology, infectious disease, because in addition to her cellulitis of lower extremities, patient had cardiomyopathy with LV dysfunction, she also had subacute CVA, peripheral vessel occlusive disease, and many consultants were addressing her medical issues. Patient was in the ICU yesterday as an overflow, however she had a sudden episode of upper GI bleeding requiring multiple blood transfusions including 4 units of packed RBCs, 2 units of fresh was a plasma, 1 unit of platelets, patient was on aspirin and Plavix. These were placed on hold, patient was seen by gastroenterology, underwent EGD, and she was found to have a bleeding duodenal ulcer. Surgery was consulted on the patient and the patient required surgical intervention yesterday. Patient underwent exploratory laparotomy and repair of perforated to widen ulcer and control of bleeding/pyloroplasty. Postoperatively patient was in the ICU on mechanical ventilation, and I was asked to see her by Dr. grijalva on consultation. She is now on assist control rate of 16 and the volume of 400 FiO2 50% and PEEP of 5 ABG showed a pO2 of 169 pCO2 of 36 pH of 7.38, hence I cut down her FiO2 to 40%. Her hemoglobin this morning is 9.2. Patient is requiring norepinephrine at 0.22 mcg/kg/m, she is on antibiotics, she is also on propofol at 50 mcg/kg/m, she was on bicarb overnight and today after reviewing her labs I discontinued her bicarb drip. I also repositioned her central line which was entering the left internal jugular and ending in the right subclavian on the other side. Patient had some bloody bowel movement today, and she continues to have some coffee ground material in the nasogastric tube but did not require any blood transfusions since yesterday. Patient is noted to have a WBC count of 48.6 hemoglobin is 9.2. Basic metabolic profile is normal, BUN is 19 and creatinine 1.0, blood sugar is 155 this morning. Liver profile is relatively unremarkable. Review of Systems ROS unobtainable: due to endotracheal tube Past Medical History Additional Past Medical History / Comment(s): lower back pain History of Any Multi-Drug Resistant Organisms: None Reported Past Surgical History: Tubal Ligation Past Anesthesia/Blood Transfusion Reactions: No Reported Reaction Past Psychological History: No Psychological Hx Reported Smoking Status: Current every day smoker Past Alcohol Use History: None Reported Past Drug Use History: None Reported - Past Family History family Additional Family Medical History / Comment(s): heart disease chf Medications and Allergies Home Medications Medication Instructions Recorded Confirmed Type Ascorbic Acid [Vitamin C] 1,000 mg PO DAILY 10/11/21 10/11/21 History Cholecalciferol [Vitamin D3 (125 125 mcg PO DAILY 10/11/21 10/11/21 History Mcg = 5000 Iu)] Flaxseed Oil 1,000 mg PO DAILY 10/11/21 10/11/21 History Ibuprofen [Motrin Ib] 600 mg PO Q8H PRN 10/11/21 10/11/21 History Magnesium Oxide [Mag-Ox] 400 mg PO DAILY 10/11/21 10/11/21 History Multivitamins, Thera [Multivitamin 1 tab PO DAILY 10/11/21 10/11/21 History (formulary)] Naproxen Sodium [Aleve] 220 mg PO BID PRN 10/11/21 10/11/21 History [place]-3 Fatty Acids/Fish Oil [Fish 1 cap PO DAILY 10/11/21 10/11/21 History Oil 1,000 mg Softgel] Potassium Gluconate [Potassium 99 mg PO DAILY 10/11/21 10/11/21 History Gluconate ER] Sennosides [Ex-Lax Chew] 15 mg PO DAILY PRN 10/11/21 10/11/21 History Vitamin A [Vitamin A (8,000 Units 2,400 mcg PO DAILY 10/11/21 10/11/21 History = 2,400 MCG)] Allergies Allergy/AdvReac Type Severity Reaction Status Date / Time No Known Allergies Allergy Verified 10/11/21 20:24 Physical Exam Vitals: Vital Signs Temp Pulse Resp BP Pulse Ox 10/17/21 10:00 77 25 H 97 10/17/21 09:45 78 25 H 97 10/17/21 09:30 82 23 97 10/17/21 09:15 79 26 H 97 05/05/22 09:00 80 25 H 98 05/05/22 08:45 78 25 H 123/57 98 05/05/22 08:30 79 24 123/57 98 05/05/22 08:15 79 27 H 123/57 98 05/05/22 08:00 97.7 F 80 26 H 122/61 100 05/05/22 07:45 79 23 122/61 99 05/05/22 07:30 76 25 H 122/61 98 05/05/22 07:15 79 26 H 97 05/05/22 07:00 80 25 H 116/69 97 05/05/22 06:45 80 24 97 05/05/22 06:30 80 24 100 05/05/22 06:15 79 24 05/05/ 06:00 78 24 118/62 05/05/22 05:45 78 25 H 95 05/05/22 05:30 80 27 H 100 05/05/ 05:15 84 27 H 100 05/05/ 05:00 87 28 H 111/59 99 05/05/22 04:45 86 26 H 99 05/05/22 04:30 82 26 H 99 05/05/22 04:15 86 27 H 98 05/05/22 04:00 86 23 117/69 99 05/05/22 03:45 97.6 F 87 22 99 05/05/22 03:30 87 25 H 99 05/05/22 03:15 87 25 H 99 05/05/22 03:00 87 22 116/77 100 05/05/22 02:45 88 19 98 05/05/22 02:30 82 22 99 05/05/22 02:15 86 24 98 05/05/22 02:00 88 22 106/66 98 05/05/22 01:45 86 23 100 05/05/22 01:30 79 22 100 05/05/22 01:15 78 21 99 05/05/22 01:00 81 20 100 05/05/22 00:45 84 21 99 05/05/22 00:30 87 21 100 05/05/22 00:15 85 21 99 05/05/22 00:05 85 19 05/05/22 00:00 94.2 F L 85 21 98/66 93 L 05/04/22 23:45 89 16 05/04/22 23:30 82 19 94 L 05/04/22 23:15 83 21 94 L 10/16/21 23:00 78 20 110/55 96 10/16/21 22:45 85 21 96 10/16/21 22:30 80 20 94 L 10/16/21 22:15 94.5 F L 80 19 110/55 93 L 10/16/21 22:00 79 19 108/56 97 10/16/21 19:13 101 H 30 H 83/53 86 L 10/16/21 19:10 101 H 28 H 92/40 10/16/21 19:00 100 34 H 86/35 96 10/16/21 18:45 104 H 35 H 81/63 10/16/21 18:30 104 H 25 H 83/68 10/16/21 18:15 110 H 31 H 98/41 10/16/21 18:00 105 H 18 85/45 100 10/16/21 17:47 111 H 12 87/69 94 L 10/16/21 17:45 106 H 25 H 89/54 94 L 10/16/21 17:33 103 H 12 89/54 94 L 10/16/21 17:30 106 H 12 80/62 100 10/16/21 17:15 90 28 H 82/51 86 L 10/16/21 17:03 87 34 H 86/45 97 10/16/21 17:00 80 34 H 68/42 85 L 10/16/21 16:53 86 31 H 67/35 88 L 10/16/21 16:45 79 32 H 92/78 86 L 10/16/21 16:30 79 34 H 77/51 93 L 10/16/21 16:15 76 24 116/22 93 L 10/16/21 16:00 85 7 L 97/84 99 10/16/21 15:45 79 27 H 66/36 93 L 10/16/21 15:30 106 H 25 H 102/63 84 L 10/16/21 15:15 89 19 103/59 100 10/16/21 15:00 86 12 51/30 91 L 10/16/21 14:00 79 9 L 103/62 10/16/21 13:30 81 24 112/68 80 L 10/16/21 13:00 80 33 H 86/60 10/16/21 12:30 78 103/69 10/16/21 12:00 98.1 F 81 20 103/63 93 L 10/16/21 11:30 76 15 116/78 85 L Intake and Output 10/16/21 10/17/21 10/17/21 22:59 06:59 14:59 Intake Total 5944.297 1554.975 969.509 Output Total 1870 250 147 Balance 4074.297 1304.975 822.509 Intake: IV 1700 1300 650 Dextrose 5% in Water 1, 400 150 000 ml @ 50 mls/hr IV . Q23H [facility] with Sodium Bicarb (1 Meq/ml) 150 ml Rx#:[id number] Lactated Ringers 1,000 ml 800 500 @ 100 mls/hr IV .Q10H [facility] Rx#:[id number] Lactated Ringers 1,000 ml 200 100 @ 50 mls/hr IV .Q20H [facility] Rx#:[id number] Intake, IV Titration 2319.297 254.975 319.509 Amount Norepinephrine 4 mg In 302.956 185.714 Sodium Chloride 0.9% 250 ml @ 0.05 MCG/KG/MIN 15. 964 mls/hr IV .[id number] [facility] Rx#:[id number] Norepinephrine 8 mg In 258 Sodium Chloride 0.9% 250 ml @ 0.2 MCG/KG/MIN 32. 431 mls/hr IV .Q7H58M [facility] Rx#:[id number] Sodium Chloride 0.9% 1, 2000 000 ml @ 999 mls/hr IV . Q1H1M [facility] Rx#:[id number] propofoL 1,000 mg In 16.341 69.261 61.509 Empty Bag 1 bag @ 5 MCG/ KG/MIN 2.514 mls/hr IV . Q24H [facility] Rx#:[id number] Blood Product 1925 Ffp 24 Pher Acda Cnt1 209 Unit [id number] Ffp 24 Pher Acda Cnt2 201 Unit [id number] Platelet Pheresis Pas 275 Psoralen Unit [id number] Rc As-1 Unit 310 [id number] Rc As-1 Unit 310 [id number] Rc As-1 Unit 310 [id number] Rc As-1 Unit 310 [id number] Other 0 Ffp 24 Pher Acda Cnt1 0 Unit [id number] Ffp 24 Pher Acda Cnt2 0 Unit [id number] Rc As-1 Unit 0 [id number] Rc As-1 Unit 0 [id number] Output: Urine 70 250 147 Estimated Blood Loss 200 Other 1600 Other: Voiding Method Indwelling Catheter Indwelling Catheter # Bowel Movements 1 Weight 87 kg 87 kg ABP, PAP, CO, CI - Last 8 Hours Arterial Blood Pressure 123/42 Arterial Blood Pressure 131/48 Arterial Blood Pressure 110/34 Arterial Blood Pressure 137/50 Arterial Blood Pressure 137/50 Arterial Blood Pressure 121/46 Arterial Blood Pressure 125/45 Arterial Blood Pressure 124/49 Arterial Blood Pressure 130/50 Arterial Blood Pressure 130/50 Arterial Blood Pressure 127/49 Arterial Blood Pressure 136/51 Arterial Blood Pressure 57/49 Arterial Blood Pressure 132/50 Arterial Blood Pressure 124/47 Arterial Blood Pressure 123/47 Arterial Blood Pressure 122/46 Arterial Blood Pressure 108/45 Arterial Blood Pressure 103/48 Arterial Blood Pressure 49/42 Arterial Blood Pressure 122/51 Arterial Blood Pressure 111/51 Arterial Blood Pressure 119/56 Arterial Blood Pressure 33/30 Arterial Blood Pressure 111/48 Arterial Blood Pressure 120/56 Physical Exam: Revealed a 66-year-old female obese, intubated and mechanically ventilated, sedated, not in distress. Head: Atraumatic normocephalic. Endotracheal tube and nasogastric tube are intact. HEENT:[Neck is supple.] [No neck masses.] [No thyromegaly.] [No JVD.] Left IJ triple-lumen catheter is noted this was placed by anesthesia yesterday. Chest: [Symmetrical chest expansion, fine crackles at the bases no rhonchi and no wheezes..] Cardiac Exam: [Normal S1 and S2, no S3 gallop, no murmur.] Abdomen: Postsurgical, nontender, abdominal binder is noted. Negative bowel sounds. Extremities: Both lower extremities are wrapped with Hans wraps. However there is obviously some oozing noted in both lower extremities left more so than right. To be addressed later today by vascular surgery. Neurological Exam: Could not assess, patient is sedated on propofol. Psychiatric: Could not assess. Patient is sedated, on propofol. Results - Laboratory Findings CBC and BMP: 10/17/21 05:05 10/17/21 05:05 ABG ABG pH 7.38 (7.35-7.45) 10/17/21 05:43 ABG pCO2 36 mmHg (35-45) 10/17/21 05:43 ABG pO2 169 mmHg (83-108) H 10/17/21 05:43 ABG O2 Saturation 99.5 % (94-97) H 10/17/21 05:43 PT/INR, D-dimer PT 13.1 sec (9.0-12.0) H 10/17/21 05:05 INR 1.2 (<1.2) H 10/17/21 05:05 Abnormal lab findings: Abnormal Labs 10/11/21 10/11/21 10/11/21 15:44 15:44 15:44 WBC 24.8 H RBC Hgb Hct MCHC RDW Plt Count 480 H MPV Immature Gran # Neutrophils # 22.9 H Neutrophils # (Manual) Lymphocytes # 0.6 L Lymphocytes # (Manual) Monocytes # Eosinophils # Metamyelocytes # (Man) Myelocytes # (Manual) PT INR APTT ABG pH ABG pCO2 ABG pO2 ABG HCO3 ABG Total CO2 ABG O2 Saturation Sodium 130 L Potassium Chloride 93 L Carbon Dioxide BUN 95 H Creatinine 3.08 H Glucose 140 H POC Glucose (mg/dL) Hemoglobin A1c Calcium Magnesium AST ALT Alkaline Phosphatase 159 H Total Protein Albumin 3.4 L HDL Cholesterol TSH Urine Appearance Turbid H Urine Protein 1+ H Urine Blood Small H Ur Leukocyte Esterase Large H Urine RBC 20 H Urine WBC >182 H Ur Squamous Epith Cells 10 H Urine Bacteria Occasional H Hyaline Casts 5 H Stool Occult Blood Crossmatch 10/12/21 10/12/21 10/12/21 06:12 06:12 06:12 WBC 23.20 H RBC Hgb Hct MCHC RDW 15.9 H Plt Count MPV 8.9 L Immature Gran # 0.23 H Neutrophils # 20.64 H Neutrophils # (Manual) Lymphocytes # 0.72 L Lymphocytes # (Manual) Monocytes # 1.52 H Eosinophils # 0.01 L Metamyelocytes # (Man) Myelocytes # (Manual) PT INR APTT ABG pH ABG pCO2 ABG pO2 ABG HCO3 ABG Total CO2 ABG O2 Saturation Sodium 136 L Potassium 3.2 L Chloride Carbon Dioxide BUN 79 H Creatinine 1.80 H Glucose 103 H POC Glucose (mg/dL) Hemoglobin A1c 8.0 H Calcium 8.1 L Magnesium AST ALT Alkaline Phosphatase Total Protein Albumin HDL Cholesterol TSH Urine Appearance Urine Protein Urine Blood Ur Leukocyte Esterase Urine RBC Urine WBC Ur Squamous Epith Cells Urine Bacteria Hyaline Casts Stool Occult Blood Crossmatch 10/12/21 10/13/21 10/13/21 06:12 06:00 06:26 WBC 15.3 H RBC Hgb Hct MCHC RDW 15.6 H Plt Count MPV Immature Gran # Neutrophils # Neutrophils # (Manual) Lymphocytes # Lymphocytes # (Manual) Monocytes # Eosinophils # Metamyelocytes # (Man) Myelocytes # (Manual) PT INR APTT ABG pH ABG pCO2 ABG pO2 ABG HCO3 ABG Total CO2 ABG O2 Saturation Sodium Potassium 3.4 L Chloride 114 H Carbon Dioxide 18 L BUN 60 H Creatinine Glucose POC Glucose (mg/dL) Hemoglobin A1c Calcium 7.9 L Magnesium AST ALT Alkaline Phosphatase Total Protein 5.0 L Albumin 2.1 L HDL Cholesterol 28.30 L TSH 0.222 L Urine Appearance Urine Protein Urine Blood Ur Leukocyte Esterase Urine RBC Urine WBC Ur Squamous Epith Cells Urine Bacteria Hyaline Casts Stool Occult Blood Crossmatch 10/13/21 10/13/21 10/13/21 12:32 12:57 14:39 WBC RBC Hgb Hct MCHC RDW Plt Count MPV Immature Gran # Neutrophils # Neutrophils # (Manual) Lymphocytes # Lymphocytes # (Manual) Monocytes # Eosinophils # Metamyelocytes # (Man) Myelocytes # (Manual) PT INR APTT ABG pH ABG pCO2 ABG pO2 ABG HCO3 ABG Total CO2 ABG O2 Saturation Sodium Potassium Chloride Carbon Dioxide BUN Creatinine Glucose POC Glucose (mg/dL) 58 L 73 L 125 H Hemoglobin A1c Calcium Magnesium AST ALT Alkaline Phosphatase Total Protein Albumin HDL Cholesterol TSH Urine Appearance Urine Protein Urine Blood Ur Leukocyte Esterase Urine RBC Urine WBC Ur Squamous Epith Cells Urine Bacteria Hyaline Casts Stool Occult Blood Crossmatch 10/14/21 10/14/21 10/15/21 05:15 05:15 08:06 WBC 11.9 H 11.4 H RBC 3.62 L 3.33 L Hgb 10.4 L 9.4 L Hct 32.3 L 30.3 L MCHC RDW 16.1 H 15.6 H Plt Count MPV Immature Gran # Neutrophils # Neutrophils # (Manual) Lymphocytes # Lymphocytes # (Manual) Monocytes # Eosinophils # Metamyelocytes # (Man) Myelocytes # (Manual) PT INR APTT ABG pH ABG pCO2 ABG pO2 ABG HCO3 ABG Total CO2 ABG O2 Saturation Sodium Potassium 3.4 L Chloride 111 H Carbon Dioxide BUN 33 H Creatinine Glucose POC Glucose (mg/dL) Hemoglobin A1c Calcium 7.8 L Magnesium AST ALT Alkaline Phosphatase Total Protein Albumin HDL Cholesterol TSH Urine Appearance Urine Protein Urine Blood Ur Leukocyte Esterase Urine RBC Urine WBC Ur Squamous Epith Cells Urine Bacteria Hyaline Casts Stool Occult Blood Crossmatch 10/15/21 10/15/21 10/15/21 08:06 16:32 20:38 WBC 14.5 H RBC 3.01 L Hgb 8.6 L Hct 28.3 L MCHC 30.3 L RDW Plt Count MPV Immature Gran # Neutrophils # Neutrophils # (Manual) Lymphocytes # Lymphocytes # (Manual) Monocytes # Eosinophils # Metamyelocytes # (Man) Myelocytes # (Manual) PT INR APTT ABG pH ABG pCO2 ABG pO2 ABG HCO3 ABG Total CO2 ABG O2 Saturation Sodium Potassium Chloride 109 H Carbon Dioxide BUN 23 H Creatinine Glucose 115 H POC Glucose (mg/dL) Hemoglobin A1c Calcium 7.5 L Magnesium 1.5 L AST ALT Alkaline Phosphatase Total Protein 4.7 L Albumin 2.0 L HDL Cholesterol TSH Urine Appearance Urine Protein Urine Blood Ur Leukocyte Esterase Urine RBC Urine WBC Ur Squamous Epith Cells Urine Bacteria Hyaline Casts Stool Occult Blood Positive H Crossmatch 10/15/21 10/16/21 10/16/21 22:49 01:03 06:25 WBC 12.1 H RBC 2.70 L 2.71 L Hgb 7.5 L 7.7 L Hct 24.9 L 25.5 L MCHC 30.2 L 30.3 L RDW 16.1 H Plt Count MPV Immature Gran # Neutrophils # Neutrophils # (Manual) Lymphocytes # Lymphocytes # (Manual) Monocytes # Eosinophils # Metamyelocytes # (Man) Myelocytes # (Manual) PT INR APTT ABG pH ABG pCO2 ABG pO2 ABG HCO3 ABG Total CO2 ABG O2 Saturation Sodium Potassium Chloride Carbon Dioxide BUN Creatinine Glucose POC Glucose (mg/dL) 116 H Hemoglobin A1c Calcium Magnesium AST ALT Alkaline Phosphatase Total Protein Albumin HDL Cholesterol TSH Urine Appearance Urine Protein Urine Blood Ur Leukocyte Esterase Urine RBC Urine WBC Ur Squamous Epith Cells Urine Bacteria Hyaline Casts Stool Occult Blood Crossmatch 10/16/21 10/16/21 10/16/21 06:25 06:52 11:17 WBC RBC Hgb Hct MCHC RDW Plt Count MPV Immature Gran # Neutrophils # Neutrophils # (Manual) Lymphocytes # Lymphocytes # (Manual) Monocytes # Eosinophils # Metamyelocytes # (Man) Myelocytes # (Manual) PT INR APTT ABG pH ABG pCO2 ABG pO2 ABG HCO3 ABG Total CO2 ABG O2 Saturation Sodium 135 L Potassium Chloride 110 H Carbon Dioxide 20 L BUN 19 H Creatinine Glucose 120 H POC Glucose (mg/dL) 133 H 136 H Hemoglobin A1c Calcium 7.0 L Magnesium AST ALT Alkaline Phosphatase Total Protein 4.6 L Albumin 1.9 L HDL Cholesterol TSH Urine Appearance Urine Protein Urine Blood Ur Leukocyte Esterase Urine RBC Urine WBC Ur Squamous Epith Cells Urine Bacteria Hyaline Casts Stool Occult Blood Crossmatch 10/16/21 10/16/21 10/16/21 11:45 16:23 16:23 WBC 13.9 H RBC 2.69 L 2.18 L Hgb 7.8 L 6.3 L* D Hct 24.5 L 20.2 L MCHC RDW 16.3 H 16.3 H Plt Count MPV Immature Gran # Neutrophils # Neutrophils # (Manual) Lymphocytes # Lymphocytes # (Manual) Monocytes # Eosinophils # Metamyelocytes # (Man) Myelocytes # (Manual) PT INR APTT ABG pH ABG pCO2 ABG pO2 ABG HCO3 ABG Total CO2 ABG O2 Saturation Sodium Potassium Chloride Carbon Dioxide BUN Creatinine Glucose POC Glucose (mg/dL) Hemoglobin A1c Calcium Magnesium AST ALT Alkaline Phosphatase Total Protein Albumin HDL Cholesterol TSH Urine Appearance Urine Protein Urine Blood Ur Leukocyte Esterase Urine RBC Urine WBC Ur Squamous Epith Cells Urine Bacteria Hyaline Casts Stool Occult Blood Crossmatch See Detail 10/16/21 10/16/21 10/16/21 16:23 21:56 22:00 WBC 62.5 H* RBC 2.86 L Hgb 8.3 L D Hct 26.4 L MCHC RDW Plt Count MPV Immature Gran # Neutrophils # Neutrophils # (Manual) 50.00 H Lymphocytes # Lymphocytes # (Manual) Monocytes # Eosinophils # Metamyelocytes # (Man) 3.75 H Myelocytes # (Manual) 6.25 H PT INR APTT 19.8 L ABG pH ABG pCO2 ABG pO2 ABG HCO3 ABG Total CO2 ABG O2 Saturation Sodium Potassium Chloride Carbon Dioxide BUN Creatinine Glucose POC Glucose (mg/dL) 254 H Hemoglobin A1c Calcium Magnesium AST ALT Alkaline Phosphatase Total Protein Albumin HDL Cholesterol TSH Urine Appearance Urine Protein Urine Blood Ur Leukocyte Esterase Urine RBC Urine WBC Ur Squamous Epith Cells Urine Bacteria Hyaline Casts Stool Occult Blood Crossmatch 10/16/21 10/16/21 10/16/21 22:00 22:00 22:05 WBC RBC Hgb Hct MCHC RDW Plt Count MPV Immature Gran # Neutrophils # Neutrophils # (Manual) Lymphocytes # Lymphocytes # (Manual) Monocytes # Eosinophils # Metamyelocytes # (Man) Myelocytes # (Manual) PT 14.3 H INR 1.4 H APTT ABG pH 7.13 L* ABG pCO2 48 H ABG pO2 >400 H ABG HCO3 16 L ABG Total CO2 17 L ABG O2 Saturation 99.5 H Sodium 135 L Potassium Chloride 115 H Carbon Dioxide 16 L BUN Creatinine Glucose 223 H POC Glucose (mg/dL) Hemoglobin A1c Calcium 5.9 L* Magnesium AST ALT Alkaline Phosphatase Total Protein Albumin HDL Cholesterol TSH Urine Appearance Urine Protein Urine Blood Ur Leukocyte Esterase Urine RBC Urine WBC Ur Squamous Epith Cells Urine Bacteria Hyaline Casts Stool Occult Blood Crossmatch 10/17/21 10/17/21 10/17/21 00:01 05:05 05:05 WBC RBC Hgb Hct MCHC RDW Plt Count MPV Immature Gran # Neutrophils # Neutrophils # (Manual) Lymphocytes # Lymphocytes # (Manual) Monocytes # Eosinophils # Metamyelocytes # (Man) Myelocytes # (Manual) PT 13.1 H INR 1.2 H APTT ABG pH ABG pCO2 ABG pO2 ABG HCO3 ABG Total CO2 ABG O2 Saturation Sodium Potassium Chloride 113 H Carbon Dioxide 20 L BUN 19 H Creatinine Glucose 148 H POC Glucose (mg/dL) 221 H Hemoglobin A1c Calcium 6.4 L* Magnesium 1.5 L AST 90 H ALT 38 H Alkaline Phosphatase Total Protein 3.6 L Albumin 1.6 L HDL Cholesterol TSH Urine Appearance Urine Protein Urine Blood Ur Leukocyte Esterase Urine RBC Urine WBC Ur Squamous Epith Cells Urine Bacteria Hyaline Casts Stool Occult Blood Crossmatch 10/17/21 10/17/21 10/17/21 05:05 05:43 06:09 WBC 48.6 H RBC 3.18 L Hgb 9.2 L Hct 27.5 L MCHC RDW Plt Count MPV Immature Gran # Neutrophils # Neutrophils # (Manual) 47.10 H Lymphocytes # Lymphocytes # (Manual) 0.97 L Monocytes # Eosinophils # Metamyelocytes # (Man) Myelocytes # (Manual) PT INR APTT ABG pH ABG pCO2 ABG pO2 169 H ABG HCO3 ABG Total CO2 ABG O2 Saturation 99.5 H Sodium Potassium Chloride Carbon Dioxide BUN Creatinine Glucose POC Glucose (mg/dL) 155 H Hemoglobin A1c Calcium Magnesium AST ALT Alkaline Phosphatase Total Protein Albumin HDL Cholesterol TSH Urine Appearance Urine Protein Urine Blood Ur Leukocyte Esterase Urine RBC Urine WBC Ur Squamous Epith Cells Urine Bacteria Hyaline Casts Stool Occult Blood Crossmatch - Diagnostic Findings Chest x-ray: image reviewed (Stable chest, the left IJ central line seems to be now in proper position after it was pulled out from the right subclavian vein.) Assessment and Plan Assessment: Impression: Postoperative hypoxic respiratory failure requiring mechanical ventilation and the patient will remain mechanically ventilated mostly because of her hemodynamic instability, and massive GI bleeding secondary to bleeding/perforated duodenal ulcer this is expected considering the patient multiple medical problems and again she is presently requiring pressors/norepinephrine and the patient is status post multiple blood products transfusion Massive upper GI bleeding secondary to bleeding duodenal ulcer Chronic cellulitis of lower extremities Acute urinary tract infection on presentation Type 2 diabetes History of subacute CVA Toxic/metabolic encephalopathy, as noted by neurology. Sepsis, and possible septic shock. Hypovolemic shock is not entirely ruled out. History of cardiomyopathy and LV dysfunction. Recommendation: Continue ventilatory support, vent settings were addressed this morning and FiO2 down to 40%. Continue hemodynamic support, norepinephrine will be titrated accordingly maintaining a mean arterial pressure of 65. Continue GI prophylaxis. Patient is on Protonix. Continue to monitor hemoglobin. And address accordingly transfuse if below 7. Continue antibiotics as per infectious disease on the case. Continue to hold anticoagulation therapy for now. We will likely place the patient on subcu heparin tomorrow for DVT prophylaxis. Consider TPN on this patient. This will be addressed with surgery. And we'll consult dietitian for TPN Monitor closely I's and O's and monitor daily electrolytes and data blood gases. Continue to hold the Plavix and aspirin. And nonsteroidal anti-inflammatory medication Left IJ central line was repositioned We'll continue to follow while in the ICU. Critical care time is over 55 minutes Time with Patient: Greater than 30
[2021-10-17 11:49] LABS: Glucose,Whole Blood 169 mg/dL (75-99)
[2021-10-17] MEDS ORDERED: ANIDULAFUNGIN 200 MG in SODIUM CHLORIDE 0.9% 200 ML IVPB ONE (12:30)
--- NOTE | 2021-10-17 13:25 | P.PN ---
Subjective Progress Note Date: 10/17/21 Principal diagnosis: GI bleed Live presented to the hospital with acute lower extremity cellulitis and necrotic wound. While in hospital she had developed acute upper GI bleed and last night continued to have further evidence of bleeding. Patient RBC, 2 units of FFP, and 1 platelets. She underwent an emergent EGD at the bedside in the ICU with findings of large amounts of fresh blood with clots in the stomach extending into the pylorus and the duodenum, there was a 2 cm ulceration in the duodenal bulb with a small visible vessel status post Endo Clip placement. Large adherent clot noted in the pylorus extending into the duodenal bulb which could not be removed. Significant amount of bleeding noted in this area therefore general surgery was consulted. Patient underwent laboratory laparotomy with repair of a perforated duodenal ulcer. Patient remains in the ICU intubated and sedated. She did have a large maroon colored stool this morning. Hemoglobin is stable at 9.2. Objective - Vital Signs Vital signs: Vital Signs Temp 97.7 F 10/17/21 08:00 Pulse 75 10/17/21 11:00 Resp 25 H 10/17/21 11:00 BP 123/57 10/17/21 08:45 Pulse Ox 98 10/17/21 11:00 Intake & Output 10/16/21 10/17/21 10/17/21 18:59 06:59 18:59 Intake Total 2910 5039.272 1065.829 Output Total 1955 470 147 Balance 955 4569.272 918.829 Weight 87 kg 87 kg Intake: IV 600 2850 650 Dextrose 5% in Water 1, 400 150 000 ml @ 50 mls/hr IV . Q23H [facility] with Sodium Bicarb (1 Meq/ml) 150 ml Rx#:[id number] Lactated Ringers 1,000 ml 800 500 @ 100 mls/hr IV .Q10H [facility] Rx#:[id number] Lactated Ringers 1,000 ml 600 150 @ 50 mls/hr IV .Q20H [facility] Rx#:[id number] Intake, IV Titration 1999 574.272 415.829 Amount Norepinephrine 4 mg In 488.670 Sodium Chloride 0.9% 250 ml @ 0.05 MCG/KG/MIN 15. 964 mls/hr IV .[id number] [facility] Rx#:[id number] Norepinephrine 8 mg In 354.320 Sodium Chloride 0.9% 250 ml @ 0.2 MCG/KG/MIN 32. 431 mls/hr IV .Q7H58M [facility] Rx#:[id number] Sodium Chloride 0.9% 1, 2000 000 ml @ 999 mls/hr IV . Q1H1M [facility] Rx#:[id number] propofoL 1,000 mg In 85.602 61.509 Empty Bag 1 bag @ 5 MCG/ KG/MIN 2.514 mls/hr IV . Q24H [facility] Rx#:[id number] Blood Product 310 1615 Ffp 24 Pher Acda Cnt1 209 Unit [id number] Ffp 24 Pher Acda Cnt2 201 Unit [id number] Platelet Pheresis Pas 275 Psoralen Unit [id number] Rc As-1 Unit 0 310 [id number] Rc As-1 Unit 310 [id number] Rc As-1 Unit 310 [id number] Rc As-1 Unit 310 [id number] Other 0 Ffp 24 Pher Acda Cnt1 0 Unit [id number] Ffp 24 Pher Acda Cnt2 0 Unit [id number] Rc As-1 Unit 0 [id number] Rc As-1 Unit 0 [id number] Output: Urine 355 270 147 Estimated Blood Loss 200 Other 1600 Other: Voiding Method Indwelling Catheter Indwelling Catheter Indwelling Catheter # Bowel Movements 1 ABP, PAP, CO, CI - Last Documented Arterial Blood Pressure 129/45 - Exam General appearance: The patient is sedated and intubated. HET: Head is normocephalic and atraumatic. Conjunctiva pink. Sclera anicteric. Neck: Supple without lymphadenopathy. Abdomen: Soft, nondistended with bowel sounds. No guarding or rigidity. Extremities: Normal skin color and turgor. No pedal edema Skin: No rashes, no jaundice Neurological: Sedated and intubated. - Labs CBC & Chem 7: 10/17/21 05:05 10/17/21 05:05 Labs: Abnormal Lab Results - Last 24 Hours (Table) 10/16/21 10/16/21 10/16/21 Range/Units 16:23 16:23 16:23 WBC 13.9 H (3.8-10.6) k/uL RBC 2.18 L (3.80-5.40) m/uL Hgb 6.3 L* D (11.4-16.0) gm/dL Hct 20.2 L (34.0-46.0) % RDW 16.3 H (11.5-15.5) % Neutrophils # (Manual) (1.3-7.7) k/uL Lymphocytes # (Manual) (1.0-4.8) k/uL Metamyelocytes # (Man) (0) k/uL Myelocytes # (Manual) (0) k/uL PT (9.0-12.0) sec INR (<1.2) APTT 19.8 L (22.0-30.0) sec ABG pH (7.35-7.45) ABG pCO2 (35-45) mmHg ABG pO2 (83-108) mmHg ABG HCO3 (21-25) mmol/L ABG Total CO2 (19-24) mmol/L ABG O2 Saturation (94-97) % Sodium (137-145) mmol/L Chloride (98-107) mmol/L Carbon Dioxide (22-30) mmol/L BUN (7-17) mg/dL Glucose (74-99) mg/dL POC Glucose (mg/dL) (75-99) mg/dL Calcium (8.4-10.2) mg/dL Phosphorus (2.5-4.5) mg/dL Magnesium (1.6-2.3) mg/dL AST (14-36) U/L ALT (4-34) U/L Total Protein (6.3-8.2) g/dL Albumin (3.5-5.0) g/dL Crossmatch See Detail 10/16/21 10/16/21 10/16/21 Range/Units 21:56 22:00 22:00 WBC 62.5 H* (3.8-10.6) k/uL RBC 2.86 L (3.80-5.40) m/uL Hgb 8.3 L D (11.4-16.0) gm/dL Hct 26.4 L (34.0-46.0) % RDW (11.5-15.5) % Neutrophils # (Manual) 50.00 H (1.3-7.7) k/uL Lymphocytes # (Manual) (1.0-4.8) k/uL Metamyelocytes # (Man) 3.75 H (0) k/uL Myelocytes # (Manual) 6.25 H (0) k/uL PT 14.3 H (9.0-12.0) sec INR 1.4 H (<1.2) APTT (22.0-30.0) sec ABG pH (7.35-7.45) ABG pCO2 (35-45) mmHg ABG pO2 (83-108) mmHg ABG HCO3 (21-25) mmol/L ABG Total CO2 (19-24) mmol/L ABG O2 Saturation (94-97) % Sodium (137-145) mmol/L Chloride (98-107) mmol/L Carbon Dioxide (22-30) mmol/L BUN (7-17) mg/dL Glucose (74-99) mg/dL POC Glucose (mg/dL) 254 H (75-99) mg/dL Calcium (8.4-10.2) mg/dL Phosphorus (2.5-4.5) mg/dL Magnesium (1.6-2.3) mg/dL AST (14-36) U/L ALT (4-34) U/L Total Protein (6.3-8.2) g/dL Albumin (3.5-5.0) g/dL Crossmatch 10/16/21 10/16/21 10/17/21 Range/Units 22:00 22:05 00:01 WBC (3.8-10.6) k/uL RBC (3.80-5.40) m/uL Hgb (11.4-16.0) gm/dL Hct (34.0-46.0) % RDW (11.5-15.5) % Neutrophils # (Manual) (1.3-7.7) k/uL Lymphocytes # (Manual) (1.0-4.8) k/uL Metamyelocytes # (Man) (0) k/uL Myelocytes # (Manual) (0) k/uL PT (9.0-12.0) sec INR (<1.2) APTT (22.0-30.0) sec ABG pH 7.13 L* (7.35-7.45) ABG pCO2 48 H (35-45) mmHg ABG pO2 >400 H (83-108) mmHg ABG HCO3 16 L (21-25) mmol/L ABG Total CO2 17 L (19-24) mmol/L ABG O2 Saturation 99.5 H (94-97) % Sodium 135 L (137-145) mmol/L Chloride 115 H (98-107) mmol/L Carbon Dioxide 16 L (22-30) mmol/L BUN (7-17) mg/dL Glucose 223 H (74-99) mg/dL POC Glucose (mg/dL) 221 H (75-99) mg/dL Calcium 5.9 L* (8.4-10.2) mg/dL Phosphorus (2.5-4.5) mg/dL Magnesium (1.6-2.3) mg/dL AST (14-36) U/L ALT (4-34) U/L Total Protein (6.3-8.2) g/dL Albumin (3.5-5.0) g/dL Crossmatch 10/17/21 10/17/21 10/17/21 Range/Units 05:05 05:05 05:05 WBC 48.6 H (3.8-10.6) k/uL RBC 3.18 L (3.80-5.40) m/uL Hgb 9.2 L (11.4-16.0) gm/dL Hct 27.5 L (34.0-46.0) % RDW (11.5-15.5) % Neutrophils # (Manual) 47.10 H (1.3-7.7) k/uL Lymphocytes # (Manual) 0.97 L (1.0-4.8) k/uL Metamyelocytes # (Man) (0) k/uL Myelocytes # (Manual) (0) k/uL PT 13.1 H (9.0-12.0) sec INR 1.2 H (<1.2) APTT (22.0-30.0) sec ABG pH (7.35-7.45) ABG pCO2 (35-45) mmHg ABG pO2 (83-108) mmHg ABG HCO3 (21-25) mmol/L ABG Total CO2 (19-24) mmol/L ABG O2 Saturation (94-97) % Sodium (137-145) mmol/L Chloride 113 H (98-107) mmol/L Carbon Dioxide 20 L (22-30) mmol/L BUN 19 H (7-17) mg/dL Glucose 148 H (74-99) mg/dL POC Glucose (mg/dL) (75-99) mg/dL Calcium 6.4 L* (8.4-10.2) mg/dL Phosphorus (2.5-4.5) mg/dL Magnesium 1.5 L (1.6-2.3) mg/dL AST 90 H (14-36) U/L ALT 38 H (4-34) U/L Total Protein 3.6 L (6.3-8.2) g/dL Albumin 1.6 L (3.5-5.0) g/dL Crossmatch 10/17/21 10/17/21 10/17/21 Range/Units 05:05 05:43 06:09 WBC (3.8-10.6) k/uL RBC (3.80-5.40) m/uL Hgb (11.4-16.0) gm/dL Hct (34.0-46.0) % RDW (11.5-15.5) % Neutrophils # (Manual) (1.3-7.7) k/uL Lymphocytes # (Manual) (1.0-4.8) k/uL Metamyelocytes # (Man) (0) k/uL Myelocytes # (Manual) (0) k/uL PT (9.0-12.0) sec INR (<1.2) APTT (22.0-30.0) sec ABG pH (7.35-7.45) ABG pCO2 (35-45) mmHg ABG pO2 169 H (83-108) mmHg ABG HCO3 (21-25) mmol/L ABG Total CO2 (19-24) mmol/L ABG O2 Saturation 99.5 H (94-97) % Sodium (137-145) mmol/L Chloride (98-107) mmol/L Carbon Dioxide (22-30) mmol/L BUN (7-17) mg/dL Glucose (74-99) mg/dL POC Glucose (mg/dL) 155 H (75-99) mg/dL Calcium (8.4-10.2) mg/dL Phosphorus 5.0 H (2.5-4.5) mg/dL Magnesium (1.6-2.3) mg/dL AST (14-36) U/L ALT (4-34) U/L Total Protein (6.3-8.2) g/dL Albumin (3.5-5.0) g/dL Crossmatch 10/17/21 Range/Units 11:48 WBC (3.8-10.6) k/uL RBC (3.80-5.40) m/uL Hgb (11.4-16.0) gm/dL Hct (34.0-46.0) % RDW (11.5-15.5) % Neutrophils # (Manual) (1.3-7.7) k/uL Lymphocytes # (Manual) (1.0-4.8) k/uL Metamyelocytes # (Man) (0) k/uL Myelocytes # (Manual) (0) k/uL PT (9.0-12.0) sec INR (<1.2) APTT (22.0-30.0) sec ABG pH (7.35-7.45) ABG pCO2 (35-45) mmHg ABG pO2 (83-108) mmHg ABG HCO3 (21-25) mmol/L ABG Total CO2 (19-24) mmol/L ABG O2 Saturation (94-97) % Sodium (137-145) mmol/L Chloride (98-107) mmol/L Carbon Dioxide (22-30) mmol/L BUN (7-17) mg/dL Glucose (74-99) mg/dL POC Glucose (mg/dL) 169 H (75-99) mg/dL Calcium (8.4-10.2) mg/dL Phosphorus (2.5-4.5) mg/dL Magnesium (1.6-2.3) mg/dL AST (14-36) U/L ALT (4-34) U/L Total Protein (6.3-8.2) g/dL Albumin (3.5-5.0) g/dL Crossmatch Microbiology - Last 24 Hours (Table) 10/16/21 23:45 Sputum Culture - Preliminary Sputum 10/13/21 14:20 Anaerobic Culture - Final Leg - Right Anaerobic Gm Negative Bacilli 10/11/21 15:44 Blood Culture - Preliminary Blood No Growth after 120 hours 10/11/21 15:44 Blood Culture - Preliminary Blood No Growth after 120 hours Assessment and Plan (1) GI bleed Narrative/Plan: This 58-year-old female was transferred into the ICU yesterday evening with concerns of multiple maroon-colored stools. Patient was admitted with a hemoglobin of 14.9 with a drop to 7.7. Patient was admitted on 10/11/2021 with concerns of lower extremity cellulitis. She is status post debridement. Currently on IV antibiotics. Also concerns for subacute stroke he was started on low-dose aspirin and Plavix. Patient then had multiple maroon-colored stools. 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 Unknown history of any peptic ulcer disease. states that patient was taking a significant amount of NSAIDs, nearly daily use of ibuprofen. Possible etiologies include peptic ulcer disease, is esophagitis, gastritis, AVMs or other possible EGDs. Will hold Plavix, and plan for EGD tomorrow as patient had a regular breakfast this morning. Current Visit: Yes Status: Acute Code(s): K92.2 - GASTROINTESTINAL HEMORRHAGE, UNSPECIFIED SNOMED Code(s): 97620140 (2) Diabetes mellitus Current Visit: Yes Status: Acute Code(s): E11.9 - TYPE 2 DIABETES MELLITUS WITHOUT COMPLICATIONS SNOMED Code(s): 99714487 (3) CVA (cerebral vascular accident) Current Visit: Yes Status: Acute Code(s): I63.9 - CEREBRAL INFARCTION, UNSP ECIFIED SNOMED Code(s): 598198580 (4) Urinary tract infection Current Visit: Yes Status: Acute Code(s): N39.0 - URINARY TRACT INFECTION, SITE NOT SPECIFIED SNOMED Code(s): 04398713 (5) Cellulitis Current Visit: Yes Status: Acute Code(s): L03.90 - CELLULITIS, UNSPECIFIED SNOMED Code(s): 832439785 (6) Perforated duodenal ulcer with hemorrhage Narrative/Plan: EGD at the bedside in the ICU with findings of large amounts of fresh blood with clots in the stomach extending into the pylorus and the duodenum, there was a 2 cm ulceration in the duodenal bulb with a small visible vessel status post Endo Clip placement. Large adherent clot noted in the pylorus extending into the duodenal bulb which could not be removed. Significant amount of bleeding noted in this area therefore general surgery was consulted. Patient underwent laboratory laparotomy with repair of a perforated duodenal ulcer. Patient remains in the ICU intubated and sedated. Current Visit: Yes Status: Acute Code(s): K26.6 - CHRONIC OR UNSP DUODENAL ULCER W BOTH HEMORRHAGE AND PERF SNOMED Code(s): 54411292 (7) Duodenal ulcer Current Visit: Yes Status: Acute Code(s): K26.9 - DUODENAL ULCER, UNSP A CUTE OR CHRONIC, W/O HEMOR OR PERF SNOMED Code(s): 92023041 Plan: 1. Continue symptomatic and supportive care 2. Continue ICU management 3. Continue with recommendations from general surgery Thank you for this consultation, gastroenterology will sign off at this time. Dr. Elsa Mccall I agree with the dictator's note, documented as a scribe by Taina Swanson.
[2021-10-17] MEDS ORDERED: MVI, ADULT NO.4 WITH VIT K 10 ML, TRACE (CONC-1ML/DOSE) 1 ML, SODIUM ACETATE 30 MEQ, PO... IV ONE ×7 (15:00)
--- NOTE | 2021-10-17 15:26 | P.PN ---
Subjective Progress Note Date: 10/17/21 Principal diagnosis: Duodenal ulcer Patient remains on the ventilator. Vital signs are improved. Decreased pressor requirements today. Urine output is improving. Hemoglobin 9.2 after 4 units. Nasogastric tube remains bloody in appearance likely from residual clot. MARIA LUISA drain is serosanguineous. Objective - Vital Signs Vital signs: Vital Signs Temp 97.5 F L 10/17/21 12:00 Pulse 80 10/17/21 15:00 Resp 26 H 10/17/21 15:00 BP 123/57 10/17/21 08:45 Pulse Ox 100 10/17/21 15:00 Intake & Output 10/16/21 10/17/21 10/17/21 18:59 06:59 18:59 Intake Total 2910 5039.272 1543.177 Output Total 1955 470 272 Balance 955 4569.272 1271.177 Weight 87 kg 87 kg Intake: IV 600 2850 1050 Dextrose 5% in Water 1, 400 150 000 ml @ 50 mls/hr IV . Q23H [facility] with Sodium Bicarb (1 Meq/ml) 150 ml Rx#:[id number] Lactated Ringers 1,000 ml 800 900 @ 100 mls/hr IV .Q10H [facility] Rx#:[id number] Lactated Ringers 1,000 ml 600 150 @ 50 mls/hr IV .Q20H [facility] Rx#:[id number] Intake, IV Titration 1999 574.272 493.177 Amount Norepinephrine 4 mg In 488.670 Sodium Chloride 0.9% 250 ml @ 0.05 MCG/KG/MIN 15. 964 mls/hr IV .[id number] [facility] Rx#:[id number] Norepinephrine 8 mg In 431.668 Sodium Chloride 0.9% 250 ml @ 0.2 MCG/KG/MIN 32. 431 mls/hr IV .Q7H58M [facility] Rx#:[id number] Sodium Chloride 0.9% 1, 2000 000 ml @ 999 mls/hr IV . Q1H1M [facility] Rx#:[id number] propofoL 1,000 mg In 85.602 61.509 Empty Bag 1 bag @ 5 MCG/ KG/MIN 2.514 mls/hr IV . Q24H [facility] Rx#:[id number] Blood Product 310 1615 Ffp 24 Pher Acda Cnt1 209 Unit [id number] Ffp 24 Pher Acda Cnt2 201 Unit [id number] Platelet Pheresis Pas 275 Psoralen Unit [id number] Rc As-1 Unit 0 310 [id number] Rc As-1 Unit 310 [id number] Rc As-1 Unit 310 [id number] Rc As-1 Unit 310 [id number] Other 0 Ffp 24 Pher Acda Cnt1 0 Unit [id number] Ffp 24 Pher Acda Cnt2 0 Unit [id number] Rc As-1 Unit 0 [id number] Rc As-1 Unit 0 [id number] Output: Urine 355 270 272 Estimated Blood Loss 200 Other 1600 Other: Voiding Method Indwelling Catheter Indwelling Catheter Indwelling Catheter # Bowel Movements 1 ABP, PAP, CO, CI - Last Documented Arterial Blood Pressure 117/38 - Exam Abdomen: Soft, mild distention, dressing clean and dry, MARIA LUISA serosanguineous - Labs CBC & Chem 7: 10/17/21 05:05 10/17/21 05:05 Labs: Abnormal Lab Results - Last 24 Hours (Table) 10/16/21 10/16/21 10/16/21 Range/Units 16:23 16:23 16:23 WBC 13.9 H (3.8-10.6) k/uL RBC 2.18 L (3.80-5.40) m/uL Hgb 6.3 L* D (11.4-16.0) gm/dL Hct 20.2 L (34.0-46.0) % RDW 16.3 H (11.5-15.5) % Neutrophils # (Manual) (1.3-7.7) k/uL Lymphocytes # (Manual) (1.0-4.8) k/uL Metamyelocytes # (Man) (0) k/uL Myelocytes # (Manual) (0) k/uL PT (9.0-12.0) sec INR (<1.2) APTT 19.8 L (22.0-30.0) sec ABG pH (7.35-7.45) ABG pCO2 (35-45) mmHg ABG pO2 (83-108) mmHg ABG HCO3 (21-25) mmol/L ABG Total CO2 (19-24) mmol/L ABG O2 Saturation (94-97) % Sodium (137-145) mmol/L Chloride (98-107) mmol/L Carbon Dioxide (22-30) mmol/L BUN (7-17) mg/dL Glucose (74-99) mg/dL POC Glucose (mg/dL) (75-99) mg/dL Calcium (8.4-10.2) mg/dL Phosphorus (2.5-4.5) mg/dL Magnesium (1.6-2.3) mg/dL AST (14-36) U/L ALT (4-34) U/L Total Protein (6.3-8.2) g/dL Albumin (3.5-5.0) g/dL Crossmatch See Detail 10/16/21 10/16/21 10/16/21 Range/Units 21:56 22:00 22:00 WBC 62.5 H* (3.8-10.6) k/uL RBC 2.86 L (3.80-5.40) m/uL Hgb 8.3 L D (11.4-16.0) gm/dL Hct 26.4 L (34.0-46.0) % RDW (11.5-15.5) % Neutrophils # (Manual) 50.00 H (1.3-7.7) k/uL Lymphocytes # (Manual) (1.0-4.8) k/uL Metamyelocytes # (Man) 3.75 H (0) k/uL Myelocytes # (Manual) 6.25 H (0) k/uL PT 14.3 H (9.0-12.0) sec INR 1.4 H (<1.2) APTT (22.0-30.0) sec ABG pH (7.35-7.45) ABG pCO2 (35-45) mmHg ABG pO2 (83-108) mmHg ABG HCO3 (21-25) mmol/L ABG Total CO2 (19-24) mmol/L ABG O2 Saturation (94-97) % Sodium (137-145) mmol/L Chloride (98-107) mmol/L Carbon Dioxide (22-30) mmol/L BUN (7-17) mg/dL Glucose (74-99) mg/dL POC Glucose (mg/dL) 254 H (75-99) mg/dL Calcium (8.4-10.2) mg/dL Phosphorus (2.5-4.5) mg/dL Magnesium (1.6-2.3) mg/dL AST (14-36) U/L ALT (4-34) U/L Total Protein (6.3-8.2) g/dL Albumin (3.5-5.0) g/dL Crossmatch 10/16/21 10/16/21 10/17/21 Range/Units 22:00 22:05 00:01 WBC (3.8-10.6) k/uL RBC (3.80-5.40) m/uL Hgb (11.4-16.0) gm/dL Hct (34.0-46.0) % RDW (11.5-15.5) % Neutrophils # (Manual) (1.3-7.7) k/uL Lymphocytes # (Manual) (1.0-4.8) k/uL Metamyelocytes # (Man) (0) k/uL Myelocytes # (Manual) (0) k/uL PT (9.0-12.0) sec INR (<1.2) APTT (22.0-30.0) sec ABG pH 7.13 L* (7.35-7.45) ABG pCO2 48 H (35-45) mmHg ABG pO2 >400 H (83-108) mmHg ABG HCO3 16 L (21-25) mmol/L ABG Total CO2 17 L (19-24) mmol/L ABG O2 Saturation 99.5 H (94-97) % Sodium 135 L (137-145) mmol/L Chloride 115 H (98-107) mmol/L Carbon Dioxide 16 L (22-30) mmol/L BUN (7-17) mg/dL Glucose 223 H (74-99) mg/dL POC Glucose (mg/dL) 221 H (75-99) mg/dL Calcium 5.9 L* (8.4-10.2) mg/dL Phosphorus (2.5-4.5) mg/dL Magnesium (1.6-2.3) mg/dL AST (14-36) U/L ALT (4-34) U/L Total Protein (6.3-8.2) g/dL Albumin (3.5-5.0) g/dL Crossmatch 10/17/21 10/17/21 10/17/21 Range/Units 05:05 05:05 05:05 WBC 48.6 H (3.8-10.6) k/uL RBC 3.18 L (3.80-5.40) m/uL Hgb 9.2 L (11.4-16.0) gm/dL Hct 27.5 L (34.0-46.0) % RDW (11.5-15.5) % Neutrophils # (Manual) 47.10 H (1.3-7.7) k/uL Lymphocytes # (Manual) 0.97 L (1.0-4.8) k/uL Metamyelocytes # (Man) (0) k/uL Myelocytes # (Manual) (0) k/uL PT 13.1 H (9.0-12.0) sec INR 1.2 H (<1.2) APTT (22.0-30.0) sec ABG pH (7.35-7.45) ABG pCO2 (35-45) mmHg ABG pO2 (83-108) mmHg ABG HCO3 (21-25) mmol/L ABG Total CO2 (19-24) mmol/L ABG O2 Saturation (94-97) % Sodium (137-145) mmol/L Chloride 113 H (98-107) mmol/L Carbon Dioxide 20 L (22-30) mmol/L BUN 19 H (7-17) mg/dL Glucose 148 H (74-99) mg/dL POC Glucose (mg/dL) (75-99) mg/dL Calcium 6.4 L* (8.4-10.2) mg/dL Phosphorus (2.5-4.5) mg/dL Magnesium 1.5 L (1.6-2.3) mg/dL AST 90 H (14-36) U/L ALT 38 H (4-34) U/L Total Protein 3.6 L (6.3-8.2) g/dL Albumin 1.6 L (3.5-5.0) g/dL Crossmatch 10/17/21 10/17/21 10/17/21 Range/Units 05:05 05:43 06:09 WBC (3.8-10.6) k/uL RBC (3.80-5.40) m/uL Hgb (11.4-16.0) gm/dL Hct (34.0-46.0) % RDW (11.5-15.5) % Neutrophils # (Manual) (1.3-7.7) k/uL Lymphocytes # (Manual) (1.0-4.8) k/uL Metamyelocytes # (Man) (0) k/uL Myelocytes # (Manual) (0) k/uL PT (9.0-12.0) sec INR (<1.2) APTT (22.0-30.0) sec ABG pH (7.35-7.45) ABG pCO2 (35-45) mmHg ABG pO2 169 H (83-108) mmHg ABG HCO3 (21-25) mmol/L ABG Total CO2 (19-24) mmol/L ABG O2 Saturation 99.5 H (94-97) % Sodium (137-145) mmol/L Chloride (98-107) mmol/L Carbon Dioxide (22-30) mmol/L BUN (7-17) mg/dL Glucose (74-99) mg/dL POC Glucose (mg/dL) 155 H (75-99) mg/dL Calcium (8.4-10.2) mg/dL Phosphorus 5.0 H (2.5-4.5) mg/dL Magnesium (1.6-2.3) mg/dL AST (14-36) U/L ALT (4-34) U/L Total Protein (6.3-8.2) g/dL Albumin (3.5-5.0) g/dL Crossmatch 10/17/21 Range/Units 11:48 WBC (3.8-10.6) k/uL RBC (3.80-5.40) m/uL Hgb (11.4-16.0) gm/dL Hct (34.0-46.0) % RDW (11.5-15.5) % Neutrophils # (Manual) (1.3-7.7) k/uL Lymphocytes # (Manual) (1.0-4.8) k/uL Metamyelocytes # (Man) (0) k/uL Myelocytes # (Manual) (0) k/uL PT (9.0-12.0) sec INR (<1.2) APTT (22.0-30.0) sec ABG pH (7.35-7.45) ABG pCO2 (35-45) mmHg ABG pO2 (83-108) mmHg ABG HCO3 (21-25) mmol/L ABG Total CO2 (19-24) mmol/L ABG O2 Saturation (94-97) % Sodium (137-145) mmol/L Chloride (98-107) mmol/L Carbon Dioxide (22-30) mmol/L BUN (7-17) mg/dL Glucose (74-99) mg/dL POC Glucose (mg/dL) 169 H (75-99) mg/dL Calcium (8.4-10.2) mg/dL Phosphorus (2.5-4.5) mg/dL Magnesium (1.6-2.3) mg/dL AST (14-36) U/L ALT (4-34) U/L Total Protein (6.3-8.2) g/dL Albumin (3.5-5.0) g/dL Crossmatch Microbiology - Last 24 Hours (Table) 10/16/21 23:45 Gram Stain - Preliminary Sputum Sputum Culture - Preliminary 10/13/21 14:20 Anaerobic Culture - Final Leg - Right Anaerobic Gm Negative Bacilli 10/11/21 15:44 Blood Culture - Preliminary Blood No Growth after 120 hours 10/11/21 15:44 Blood Culture - Preliminary Blood No Growth after 120 hours Assessment and Plan (1) Upper GI bleed Narrative/Plan: Patient doing well at this time. Keep nasogastric tube to low intermittent suction. Continue antiacid therapy. May initiate chemical DVT prophylaxis. Antibiotics per infectious disease. Discussed case with pulmonary. Attempts at weaning likely tomorrow. Case discussed with patient's at bedside. Current Visit: Yes Status: Acute Code(s): K92.2 - GASTROINTESTINAL HEMORRHAGE, UNSPECIFIED SNOMED Code(s): 07725614
[2021-10-17] MEDS: MORPHINE SULFATE 4 MG/ML SYRINGE IVP PRN (15:48)
[2021-10-17] MEDS: metroNIDAZOLE-NS PMX 500 MG in SALINE 1 100ML.BAG IVPB SCH ×2 (15:52→23:34)
[2021-10-17] MEDS ORDERED: HEPARIN SODIUM,PORCINE/PF 5,000 UNIT/0.5 ML SYRINGE SQ SCH (16:00)
--- NOTE | 2021-10-17 16:22 | PN ---
PROGRESS NOTE This is a 66-year-old female. Patient came with bilateral necrotic wound lower extremity with devitalized tissue. Patient went for extensive debridement. The patient had a perforated duodenal ulcer. Patient went for exploratory lap and control of bleeding. The patient has been intubated. Today, we have changed the dressing. We used Aquacel silver circumferentially involving both lower extremities. Dressing was applied. Continue with local wound care and IV antibiotic. MMODL / IJN: [id number] /
[2021-10-17] MEDS ORDERED: HYDROmorphone 1 MG/ML 1 ML SYRINGE IVP PRN (17:09)
--- NOTE | 2021-10-17 17:31 | P.PN ---
Subjective Interval history: This is a 66-year-old female with history of multiple medical problems, patient was admitted initially on 10/11/2021 with mostly bilateral lower extremities cellulitis. Patient was seen by many consultants including internal medicine, neurology, psychiatry, vascular surgery, cardiology, infectious disease, because in addition to her cellulitis of lower extremities, patient had cardiomyopathy with LV dysfunction, she also had subacute CVA, peripheral vessel occlusive disease, and many consultants were addressing her medical issues. Patient was in the ICU yesterday as an overflow, however she had a sudden episode of upper GI bleeding requiring multiple blood transfusions including 4 units of packed RBCs, 2 units of fresh was a plasma, 1 unit of platelets, patient was on aspirin and Plavix. These were placed on hold, patient was seen by gastroenterology, underwent EGD, and she was found to have a bleeding duodenal ulcer. Surgery was consulted on the patient and the patient required surgical intervention yesterday. Patient underwent exploratory laparotomy and repair of perforated to widen ulcer and control of bleeding/pyloroplasty. Postoperatively patient was in the ICU on mechanical ventilation, and I was asked to see her by Dr. grijalva on consultation. She is now on assist control rate of 16 and the volume of 400 FiO2 50% and PEEP of 5 ABG showed a pO2 of 169 pCO2 of 36 pH of 7.38, hence I cut down her FiO2 to 40%. Her hemoglobin this morning is 9.2. Patient is requiring norepinephrine at 0.22 mcg/kg/m, she is on antibiotics, she is also on propofol at 50 mcg/kg/m, she was on bicarb overnight and today after reviewing her labs I discontinued her bicarb drip. I also repositioned her central line which was entering the left internal jugular and ending in the right subclavian on the other side. Patient had some bloody bowel movement today, and she continues to have some coffee ground material in the nasogastric tube but did not require any blood transfusions since yesterday. Patient is noted to have a WBC count of 48.6 hemoglobin is 9.2. Basic metabolic profile is normal, BUN is 19 and creatinine 1.0, blood sugar is 155 this morning. Liver profile is relatively unremarkable Patient was seen and examined in ICU. She is intubated and sedated. Overnight patient received total of 4 units of packed RBCs and 2 units of frozen plasma. Condition is critical Physical examination: Head: Atraumatic normocephalic. Endotracheal tube and nasogastric tube are intact. HEENT:[Neck is supple.] [No neck masses.] [No thyromegaly.] [No JVD.] Left IJ triple-lumen catheter is noted this was placed by anesthesia yesterday. Chest: [Symmetrical chest expansion, fine crackles at the bases no rhonchi and no wheezes..] Cardiac Exam: [Normal S1 and S2, no S3 gallop, no murmur.] Abdomen: Postsurgical, nontender, abdominal binder is noted. Negative bowel sounds. Extremities: Both lower extremities are wrapped with Hans wraps. However there is obviously some oozing noted in both lower extremities left more so than right. To be addressed later today by vascular surgery. Neurological Exam: Could not assess, patient is sedated. Assessment and plan: #Postoperative hypoxic respiratory failure -requiring mechanical ventilation and the patient will remain mechanically ventilated mostly because of her hemodynamic instability, and massive GI bleeding secondary to bleeding/perforated duodenal ulcer this is expected considering the patient multiple medical problems and again she is presently requiring pressors/norepinephrine and the patient is status post multiple blood products transfusion -Vent management per critical care Massive upper GI bleeding secondary to bleeding duodenal ulcer -Status post respiratory laparotomy with repair of perforated duodenal ulcer and pyloroplasty by general surgeon on September 16 -Aspirin and Plavix on hold Bilateral lower extremity cellulitis secondary to nonhealing vascular status ulcers -Status post debridement with deep tissue culture by vascular surgery -Culture grew multiple organisms -Resume IV cefepime per ID -Infectious disease following Acute urinary tract infection on presentation Type 2 diabetes History of subacute CVA -Aspirin and Plavix on hold secondary to above Toxic/metabolic encephalopathy, as noted by neurology. Sepsis, and possible septic shock. Hypovolemic shock is not entirely ruled out. History of cardiomyopathy and LV dysfunction. Objective - Vital Signs Vital signs: Vital Signs Temp 97.5 F L 10/17/21 16:00 Pulse 103 H 10/17/21 17:00 Resp 28 H 10/17/21 17:00 BP 123/57 10/17/21 08:45 Pulse Ox 99 10/17/21 17:00 Intake & Output 10/16/21 10/17/21 10/17/21 18:59 06:59 18:59 Intake Total 2910 5039.272 2082.093 Output Total 1955 470 417 Balance 955 4569.272 1665.093 Weight 87 kg 87 kg Intake: IV 600 2850 1410 Dextrose 5% in Water 1, 400 150 000 ml @ 50 mls/hr IV . Q23H [facility] with Sodium Bicarb (1 Meq/ml) 150 ml Rx#:[id number] Lactated Ringers 1,000 ml 800 1100 @ 100 mls/hr IV .Q10H [facility] Rx#:[id number] Lactated Ringers 1,000 ml 600 150 @ 50 mls/hr IV .Q20H [facility] Rx#:[id number] Mvi, Adult No.4 with Vit 60 K 10 ml Trace (Conc-1Ml/ Dose) 1 ml Sodium Acetate 30 meq Potassium Acetate 20 meq Magnesium Sulfate gm 1 gm Calcium Gluconate 1 gm In Amino Acid 4.25%-D10w 1,000 ml @ 30 mls/hr IV .Q24H [facility] Rx#:[id number] metroNIDAZOLE-NS PMX 500 100 mg In Saline 1 100ml.bag @ 100 mls/hr IVPB [facility] Rx#:[id number] Intake, IV Titration 1999 574.272 672.093 Amount Norepinephrine 4 mg In 488.670 Sodium Chloride 0.9% 250 ml @ 0.05 MCG/KG/MIN 15. 964 mls/hr IV .[id number] [facility] Rx#:[id number] Norepinephrine 8 mg In 497.664 Sodium Chloride 0.9% 250 ml @ 0.2 MCG/KG/MIN 32. 431 mls/hr IV .Q7H58M [facility] Rx#:[id number] Sodium Chloride 0.9% 1, 2000 000 ml @ 999 mls/hr IV . Q1H1M [facility] Rx#:[id number] propofoL 1,000 mg In 85.602 174.429 Empty Bag 1 bag @ 5 MCG/ KG/MIN 2.514 mls/hr IV . Q24H [facility] Rx#:[id number] Blood Product 310 1615 Ffp 24 Pher Acda Cnt1 209 Unit [id number] Ffp 24 Pher Acda Cnt2 201 Unit [id number] Platelet Pheresis Pas 275 Psoralen Unit [id number] Rc As-1 Unit 0 310 [id number] Rc As-1 Unit 310 [id number] Rc As-1 Unit 310 [id number] Rc As-1 Unit 310 [id number] Other 0 Ffp 24 Pher Acda Cnt1 0 Unit [id number] Ffp 24 Pher Acda Cnt2 0 Unit [id number] Rc As-1 Unit 0 [id number] Rc As-1 Unit 0 [id number] Output: Urine 355 270 417 Estimated Blood Loss 200 Other 1600 Other: Voiding Method Indwelling Catheter Indwelling Catheter Indwelling Catheter # Bowel Movements 1 ABP, PAP, CO, CI - Last Documented Arterial Blood Pressure 119/56 - Labs CBC & Chem 7: 10/17/21 05:05 10/17/21 05:05 Labs: Abnormal Lab Results - Last 24 Hours (Table) 10/16/21 10/16/21 10/16/21 Range/Units 16:23 21:56 22:00 WBC 62.5 H* (3.8-10.6) k/uL RBC 2.86 L (3.80-5.40) m/uL Hgb 8.3 L D (11.4-16.0) gm/dL Hct 26.4 L (34.0-46.0) % Neutrophils # (Manual) 50.00 H (1.3-7.7) k/uL Lymphocytes # (Manual) (1.0-4.8) k/uL Metamyelocytes # (Man) 3.75 H (0) k/uL Myelocytes # (Manual) 6.25 H (0) k/uL PT (9.0-12.0) sec INR (<1.2) ABG pH (7.35-7.45) ABG pCO2 (35-45) mmHg ABG pO2 (83-108) mmHg ABG HCO3 (21-25) mmol/L ABG Total CO2 (19-24) mmol/L ABG O2 Saturation (94-97) % Sodium (137-145) mmol/L Chloride (98-107) mmol/L Carbon Dioxide (22-30) mmol/L BUN (7-17) mg/dL Glucose (74-99) mg/dL POC Glucose (mg/dL) 254 H (75-99) mg/dL Calcium (8.4-10.2) mg/dL Phosphorus (2.5-4.5) mg/dL Magnesium (1.6-2.3) mg/dL AST (14-36) U/L ALT (4-34) U/L Total Protein (6.3-8.2) g/dL Albumin (3.5-5.0) g/dL Crossmatch See Detail 10/16/21 10/16/21 10/16/21 Range/Units 22:00 22:00 22:05 WBC (3.8-10.6) k/uL RBC (3.80-5.40) m/uL Hgb (11.4-16.0) gm/dL Hct (34.0-46.0) % Neutrophils # (Manual) (1.3-7.7) k/uL Lymphocytes # (Manual) (1.0-4.8) k/uL Metamyelocytes # (Man) (0) k/uL Myelocytes # (Manual) (0) k/uL PT 14.3 H (9.0-12.0) sec INR 1.4 H (<1.2) ABG pH 7.13 L* (7.35-7.45) ABG pCO2 48 H (35-45) mmHg ABG pO2 >400 H (83-108) mmHg ABG HCO3 16 L (21-25) mmol/L ABG Total CO2 17 L (19-24) mmol/L ABG O2 Saturation 99.5 H (94-97) % Sodium 135 L (137-145) mmol/L Chloride 115 H (98-107) mmol/L Carbon Dioxide 16 L (22-30) mmol/L BUN (7-17) mg/dL Glucose 223 H (74-99) mg/dL POC Glucose (mg/dL) (75-99) mg/dL Calcium 5.9 L* (8.4-10.2) mg/dL Phosphorus (2.5-4.5) mg/dL Magnesium (1.6-2.3) mg/dL AST (14-36) U/L ALT (4-34) U/L Total Protein (6.3-8.2) g/dL Albumin (3.5-5.0) g/dL Crossmatch 10/17/21 10/17/21 10/17/21 Range/Units 00:01 05:05 05:05 WBC (3.8-10.6) k/uL RBC (3.80-5.40) m/uL Hgb (11.4-16.0) gm/dL Hct (34.0-46.0) % Neutrophils # (Manual) (1.3-7.7) k/uL Lymphocytes # (Manual) (1.0-4.8) k/uL Metamyelocytes # (Man) (0) k/uL Myelocytes # (Manual) (0) k/uL PT 13.1 H (9.0-12.0) sec INR 1.2 H (<1.2) ABG pH (7.35-7.45) ABG pCO2 (35-45) mmHg ABG pO2 (83-108) mmHg ABG HCO3 (21-25) mmol/L ABG Total CO2 (19-24) mmol/L ABG O2 Saturation (94-97) % Sodium (137-145) mmol/L Chloride 113 H (98-107) mmol/L Carbon Dioxide 20 L (22-30) mmol/L BUN 19 H (7-17) mg/dL Glucose 148 H (74-99) mg/dL POC Glucose (mg/dL) 221 H (75-99) mg/dL Calcium 6.4 L* (8.4-10.2) mg/dL Phosphorus (2.5-4.5) mg/dL Magnesium 1.5 L (1.6-2.3) mg/dL AST 90 H (14-36) U/L ALT 38 H (4-34) U/L Total Protein 3.6 L (6.3-8.2) g/dL Albumin 1.6 L (3.5-5.0) g/dL Crossmatch 10/17/21 10/17/21 10/17/21 Range/Units 05:05 05:05 05:43 WBC 48.6 H (3.8-10.6) k/uL RBC 3.18 L (3.80-5.40) m/uL Hgb 9.2 L (11.4-16.0) gm/dL Hct 27.5 L (34.0-46.0) % Neutrophils # (Manual) 47.10 H (1.3-7.7) k/uL Lymphocytes # (Manual) 0.97 L (1.0-4.8) k/uL Metamyelocytes # (Man) (0) k/uL Myelocytes # (Manual) (0) k/uL PT (9.0-12.0) sec INR (<1.2) ABG pH (7.35-7.45) ABG pCO2 (35-45) mmHg ABG pO2 169 H (83-108) mmHg ABG HCO3 (21-25) mmol/L ABG Total CO2 (19-24) mmol/L ABG O2 Saturation 99.5 H (94-97) % Sodium (137-145) mmol/L Chloride (98-107) mmol/L Carbon Dioxide (22-30) mmol/L BUN (7-17) mg/dL Glucose (74-99) mg/dL POC Glucose (mg/dL) (75-99) mg/dL Calcium (8.4-10.2) mg/dL Phosphorus 5.0 H (2.5-4.5) mg/dL Magnesium (1.6-2.3) mg/dL AST (14-36) U/L ALT (4-34) U/L Total Protein (6.3-8.2) g/dL Albumin (3.5-5.0) g/dL Crossmatch 10/17/21 10/17/21 Range/Units 06:09 11:48 WBC (3.8-10.6) k/uL RBC (3.80-5.40) m/uL Hgb (11.4-16.0) gm/dL Hct (34.0-46.0) % Neutrophils # (Manual) (1.3-7.7) k/uL Lymphocytes # (Manual) (1.0-4.8) k/uL Metamyelocytes # (Man) (0) k/uL Myelocytes # (Manual) (0) k/uL PT (9.0-12.0) sec INR (<1.2) ABG pH (7.35-7.45) ABG pCO2 (35-45) mmHg ABG pO2 (83-108) mmHg ABG HCO3 (21-25) mmol/L ABG Total CO2 (19-24) mmol/L ABG O2 Saturation (94-97) % Sodium (137-145) mmol/L Chloride (98-107) mmol/L Carbon Dioxide (22-30) mmol/L BUN (7-17) mg/dL Glucose (74-99) mg/dL POC Glucose (mg/dL) 155 H 169 H (75-99) mg/dL Calcium (8.4-10.2) mg/dL Phosphorus (2.5-4.5) mg/dL Magnesium (1.6-2.3) mg/dL AST (14-36) U/L ALT (4-34) U/L Total Protein (6.3-8.2) g/dL Albumin (3.5-5.0) g/dL Crossmatch Microbiology - Last 24 Hours (Table) 10/16/21 23:45 Gram Stain - Preliminary Sputum Sputum Culture - Preliminary 10/13/21 14:20 Anaerobic Culture - Final Leg - Right Anaerobic Gm Negative Bacilli 10/11/21 15:44 Blood Culture - Preliminary Blood No Growth after 120 hours 10/11/21 15:44 Blood Culture - Preliminary Blood No Growth after 120 hours
[2021-10-17 17:48] LABS: Glucose,Whole Blood 160 mg/dL (75-99)
--- NOTE | 2021-10-17 21:20 | P.PN ---
Subjective Progress Note Date: 10/17/21 Principal diagnosis: Bilateral lower extremity venous stasis ulcer and cellulitis Patient is a 66-year-old female who has not seen a physician in 20 years presented to the hospital with significant bilateral lower extremity necrotic wound and secondary cellulitis in this patient who is status post surgical debridement of these wounds in the OR on 10/13/2021. Patient did have a GI bleed could not be controlled through the EGD patient subsequently taken to the OR and status post laparotomy for a bleeding and perforated duodenal ulcer disease on 10/16/2021 On today's evaluation that is 10/17/2021, the patient remains to be afebrile, the patient is hemodynamically stable, patient is currently on the vent with an FiO2 of 40%, no significant purulent secretions with eustachian tube, no diarrhea or any other changes reported by nursing staff Objective - Vital Signs Vital signs: Vital Signs Temp 97.7 F 10/17/21 08:00 Pulse 75 10/17/21 11:00 Resp 25 H 10/17/21 11:00 BP 123/57 10/17/21 08:45 Pulse Ox 98 10/17/21 11:00 Intake & Output 10/16/21 10/17/21 10/17/21 18:59 06:59 18:59 Intake Total 2910 5039.272 1065.829 Output Total 1955 470 147 Balance 955 4569.272 918.829 Weight 87 kg 87 kg Intake: IV 600 2850 650 Dextrose 5% in Water 1, 400 150 000 ml @ 50 mls/hr IV . Q23H [facility] with Sodium Bicarb (1 Meq/ml) 150 ml Rx#:[id number] Lactated Ringers 1,000 ml 800 500 @ 100 mls/hr IV .Q10H [facility] Rx#:[id number] Lactated Ringers 1,000 ml 600 150 @ 50 mls/hr IV .Q20H [facility] Rx#:[id number] Intake, IV Titration 1999 574.272 415.829 Amount Norepinephrine 4 mg In 488.670 Sodium Chloride 0.9% 250 ml @ 0.05 MCG/KG/MIN 15. 964 mls/hr IV .[id number] [facility] Rx#:[id number] Norepinephrine 8 mg In 354.320 Sodium Chloride 0.9% 250 ml @ 0.2 MCG/KG/MIN 32. 431 mls/hr IV .Q7H58M [facility] Rx#:[id number] Sodium Chloride 0.9% 1, 2000 000 ml @ 999 mls/hr IV . Q1H1M [facility] Rx#:[id number] propofoL 1,000 mg In 85.602 61.509 Empty Bag 1 bag @ 5 MCG/ KG/MIN 2.514 mls/hr IV . Q24H [facility] Rx#:[id number] Blood Product 310 1615 Ffp 24 Pher Acda Cnt1 209 Unit [id number] Ffp 24 Pher Acda Cnt2 201 Unit [id number] Platelet Pheresis Pas 275 Psoralen Unit [id number] Rc As-1 Unit 0 310 [id number] Rc As-1 Unit 310 [id number] Rc As-1 Unit 310 [id number] Rc As-1 Unit 310 [id number] Other 0 Ffp 24 Pher Acda Cnt1 0 Unit [id number] Ffp 24 Pher Acda Cnt2 0 Unit [id number] Rc As-1 Unit 0 [id number] Rc As-1 Unit 0 [id number] Output: Urine 355 270 147 Estimated Blood Loss 200 Other 1600 Other: Voiding Method Indwelling Catheter Indwelling Catheter Indwelling Catheter # Bowel Movements 1 ABP, PAP, CO, CI - Last Documented Arterial Blood Pressure 129/45 - Exam GENERAL DESCRIPTION: An elderly female intubated on the vent RESPIRATORY SYSTEM: Unlabored breathing , decreased breath sounds at bases HEART: S1 S2 regular rate and rhythm , ABDOMEN: Soft , no tenderness EXTREMITIES: Bilateral lower extremity wounds are currently dressed no drainage on the dressing - Labs CBC & Chem 7: 10/17/21 05:05 10/17/21 05:05 Labs: Abnormal Lab Results - Last 24 Hours (Table) 10/16/21 10/16/21 10/16/21 Range/Units 16:23 16:23 16:23 WBC 13.9 H (3.8-10.6) k/uL RBC 2.18 L (3.80-5.40) m/uL Hgb 6.3 L* D (11.4-16.0) gm/dL Hct 20.2 L (34.0-46.0) % RDW 16.3 H (11.5-15.5) % Neutrophils # (Manual) (1.3-7.7) k/uL Lymphocytes # (Manual) (1.0-4.8) k/uL Metamyelocytes # (Man) (0) k/uL Myelocytes # (Manual) (0) k/uL PT (9.0-12.0) sec INR (<1.2) APTT 19.8 L (22.0-30.0) sec ABG pH (7.35-7.45) ABG pCO2 (35-45) mmHg ABG pO2 (83-108) mmHg ABG HCO3 (21-25) mmol/L ABG Total CO2 (19-24) mmol/L ABG O2 Saturation (94-97) % Sodium (137-145) mmol/L Chloride (98-107) mmol/L Carbon Dioxide (22-30) mmol/L BUN (7-17) mg/dL Glucose (74-99) mg/dL POC Glucose (mg/dL) (75-99) mg/dL Calcium (8.4-10.2) mg/dL Magnesium (1.6-2.3) mg/dL AST (14-36) U/L ALT (4-34) U/L Total Protein (6.3-8.2) g/dL Albumin (3.5-5.0) g/dL Crossmatch See Detail 10/16/21 10/16/21 10/16/21 Range/Units 21:56 22:00 22:00 WBC 62.5 H* (3.8-10.6) k/uL RBC 2.86 L (3.80-5.40) m/uL Hgb 8.3 L D (11.4-16.0) gm/dL Hct 26.4 L (34.0-46.0) % RDW (11.5-15.5) % Neutrophils # (Manual) 50.00 H (1.3-7.7) k/uL Lymphocytes # (Manual) (1.0-4.8) k/uL Metamyelocytes # (Man) 3.75 H (0) k/uL Myelocytes # (Manual) 6.25 H (0) k/uL PT 14.3 H (9.0-12.0) sec INR 1.4 H (<1.2) APTT (22.0-30.0) sec ABG pH (7.35-7.45) ABG pCO2 (35-45) mmHg ABG pO2 (83-108) mmHg ABG HCO3 (21-25) mmol/L ABG Total CO2 (19-24) mmol/L ABG O2 Saturation (94-97) % Sodium (137-145) mmol/L Chloride (98-107) mmol/L Carbon Dioxide (22-30) mmol/L BUN (7-17) mg/dL Glucose (74-99) mg/dL POC Glucose (mg/dL) 254 H (75-99) mg/dL Calcium (8.4-10.2) mg/dL Magnesium (1.6-2.3) mg/dL AST (14-36) U/L ALT (4-34) U/L Total Protein (6.3-8.2) g/dL Albumin (3.5-5.0) g/dL Crossmatch 10/16/21 10/16/21 10/17/21 Range/Units 22:00 22:05 00:01 WBC (3.8-10.6) k/uL RBC (3.80-5.40) m/uL Hgb (11.4-16.0) gm/dL Hct (34.0-46.0) % RDW (11.5-15.5) % Neutrophils # (Manual) (1.3-7.7) k/uL Lymphocytes # (Manual) (1.0-4.8) k/uL Metamyelocytes # (Man) (0) k/uL Myelocytes # (Manual) (0) k/uL PT (9.0-12.0) sec INR (<1.2) APTT (22.0-30.0) sec ABG pH 7.13 L* (7.35-7.45) ABG pCO2 48 H (35-45) mmHg ABG pO2 >400 H (83-108) mmHg ABG HCO3 16 L (21-25) mmol/L ABG Total CO2 17 L (19-24) mmol/L ABG O2 Saturation 99.5 H (94-97) % Sodium 135 L (137-145) mmol/L Chloride 115 H (98-107) mmol/L Carbon Dioxide 16 L (22-30) mmol/L BUN (7-17) mg/dL Glucose 223 H (74-99) mg/dL POC Glucose (mg/dL) 221 H (75-99) mg/dL Calcium 5.9 L* (8.4-10.2) mg/dL Magnesium (1.6-2.3) mg/dL AST (14-36) U/L ALT (4-34) U/L Total Protein (6.3-8.2) g/dL Albumin (3.5-5.0) g/dL Crossmatch 10/17/21 10/17/21 10/17/21 Range/Units 05:05 05:05 05:05 WBC 48.6 H (3.8-10.6) k/uL RBC 3.18 L (3.80-5.40) m/uL Hgb 9.2 L (11.4-16.0) gm/dL Hct 27.5 L (34.0-46.0) % RDW (11.5-15.5) % Neutrophils # (Manual) 47.10 H (1.3-7.7) k/uL Lymphocytes # (Manual) 0.97 L (1.0-4.8) k/uL Metamyelocytes # (Man) (0) k/uL Myelocytes # (Manual) (0) k/uL PT 13.1 H (9.0-12.0) sec INR 1.2 H (<1.2) APTT (22.0-30.0) sec ABG pH (7.35-7.45) ABG pCO2 (35-45) mmHg ABG pO2 (83-108) mmHg ABG HCO3 (21-25) mmol/L ABG Total CO2 (19-24) mmol/L ABG O2 Saturation (94-97) % Sodium (137-145) mmol/L Chloride 113 H (98-107) mmol/L Carbon Dioxide 20 L (22-30) mmol/L BUN 19 H (7-17) mg/dL Glucose 148 H (74-99) mg/dL POC Glucose (mg/dL) (75-99) mg/dL Calcium 6.4 L* (8.4-10.2) mg/dL Magnesium 1.5 L (1.6-2.3) mg/dL AST 90 H (14-36) U/L ALT 38 H (4-34) U/L Total Protein 3.6 L (6.3-8.2) g/dL Albumin 1.6 L (3.5-5.0) g/dL Crossmatch 10/17/21 10/17/21 10/17/21 Range/Units 05:43 06:09 11:48 WBC (3.8-10.6) k/uL RBC (3.80-5.40) m/uL Hgb (11.4-16.0) gm/dL Hct (34.0-46.0) % RDW (11.5-15.5) % Neutrophils # (Manual) (1.3-7.7) k/uL Lymphocytes # (Manual) (1.0-4.8) k/uL Metamyelocytes # (Man) (0) k/uL Myelocytes # (Manual) (0) k/uL PT (9.0-12.0) sec INR (<1.2) APTT (22.0-30.0) sec ABG pH (7.35-7.45) ABG pCO2 (35-45) mmHg ABG pO2 169 H (83-108) mmHg ABG HCO3 (21-25) mmol/L ABG Total CO2 (19-24) mmol/L ABG O2 Saturation 99.5 H (94-97) % Sodium (137-145) mmol/L Chloride (98-107) mmol/L Carbon Dioxide (22-30) mmol/L BUN (7-17) mg/dL Glucose (74-99) mg/dL POC Glucose (mg/dL) 155 H 169 H (75-99) mg/dL Calcium (8.4-10.2) mg/dL Magnesium (1.6-2.3) mg/dL AST (14-36) U/L ALT (4-34) U/L Total Protein (6.3-8.2) g/dL Albumin (3.5-5.0) g/dL Crossmatch Microbiology - Last 24 Hours (Table) 10/13/21 14:20 Anaerobic Culture - Final Leg - Right Anaerobic Gm Negative Bacilli 10/11/21 15:44 Blood Culture - Preliminary Blood No Growth after 120 hours 10/11/21 15:44 Blood Culture - Preliminary Blood No Growth after 120 hours Assessment and Plan (1) Cellulitis Current Visit: Yes Status: Acute Code(s): L03.90 - CELLULITIS, UNSPECIFIED SNOMED Code(s): 717301277 Plan: 1patient with bilateral lower extremity nonhealing wound and cellulitis seems to be more of a venous stasis ulcers with secondary cellulitis and likely from gram-positive skin pb less likely gram-negative infection in this patient has not seen a physician for 20 years less likelihood of a MRSA infection. 2 patient is status post surgical debridement and deep culture which are currently growing multiple pathogens including Pseudomonas strep 3patient did have acute GI bleed with evidence of perforated and bleeding duodenal ulcer requiring laparotomy, patient to continue with cefepime we will add Flagyl to cover for the anaerobes from the lower extremity as well as GI tract, cannot use of Diflucan because of the other medication patient is on, will add Eraxis and monitor clinical course closely Time with Patient: Less than 30
[2021-10-17] MEDS: HYDROmorphone 1 MG/ML 1 ML SYRINGE IVP PRN (21:59)
[2021-10-17 23:33] LABS: Glucose,Whole Blood 152 mg/dL (75-99)
[2021-10-18] MEDS: NOREPINEPHRINE 8 MG in SODIUM CHLORIDE 0.9% 250 ML IV SCH ×3 (02:33→11:50)
[2021-10-18] MEDS: LACTATED RINGERS 1,000 ML IV SCH ×3 (02:33→13:03)
[2021-10-18 05:21] LABS: Glucose,Whole Blood 184 mg/dL (75-99)
[2021-10-18] MEDS: INSULIN ASPART (NovoLOG) 100 UNIT/ML VIAL SQ SCH ×4 (05:26→23:58)
[2021-10-18] MEDS: HYDROmorphone 1 MG/ML 1 ML SYRINGE IVP PRN ×3 (05:28→16:57)
[2021-10-18 05:48] LABS: ABG Base Excess -2.5 mmol/L; ABG HCO3 23 mmol/L (21-25); ABG Oxygen Saturation 98.5 % (94-97); ABG PCO2 39 mmHg (35-45); ABG PH 7.38 (7.35-7.45); ABG PO2 107 mmHg (83-108); ABG TCO2 24 mmol/L (19-24)
[2021-10-18 05:50] LABS: Anisocytosis Slight; Basophils # (A) 0.3 k/uL (0-0.2); Basophils % (A) 1 %; Eosinophils % (A) 0 %; HCT 20.6 % (34.0-46.0); Lymphocytes # (A) 0.9 k/uL (1.0-4.8); Lymphocytes % (A) 3 %; MCH 28.5 pg (25.0-35.0); MCHC 32.9 g/dL (31.0-37.0); MCV 86.7 fL (80.0-100.0); Mean Platelet Volume 8.1; Monocytes % (A) 3 %; Neutrophils # (A) 34.9 k/uL (1.3-7.7); Neutrophils % (A) 93 %; Platelet Count 206 k/uL (150-450); RBC 2.38 m/uL (3.80-5.40); RDW 16.5 % (11.5-15.5); WBC 37.4 k/uL (3.8-10.6)
[2021-10-18 05:57] LABS: Allen Test Performed? No
[2021-10-18 06:09] LABS: Albumin 1.4 g/dL (3.5-5.0); Calcium 6.5 mg/dL (8.4-10.2); Phosphorus 2.8 mg/dL (2.5-4.5); Potassium 3.5 mmol/L (3.5-5.1); Total Bilirubin 0.6 mg/dL (0.2-1.3); Total Protein 3.4 g/dL (6.3-8.2)
[2021-10-18] MEDS ORDERED: Potassium Replacement Protocol 1 EACH MISC MISCELLANE PRN (06:13)
[2021-10-18] MEDS: MAGNESIUM SULFATE-D5W PMX 1 GM in DEXTROSE/WATER 1 100ML.BAG IVPB SCH ×4 (06:15→18:13)
[2021-10-18 06:26] LABS: HGB 6.8 gm/dL (11.4-16.0)
[2021-10-18] MEDS: POTASSIUM CHLORIDE 20 MEQ in WATER FOR INJECTION 1 100ML.BAG IVPB SCH ×4 (06:44→18:31)
--- NOTE | 2021-10-18 07:10 | XR ---
EXAMINATION TYPE: XR chest 1V portable DATE OF EXAM: 10/18/2021 COMPARISON: 10/17/2021 INDICATION: Tube placement TECHNIQUE: Single frontal view of the chest is obtained. FINDINGS: The heart size is mildly prominent. The pulmonary vasculature is normal. Mild right lower lobe infiltrate present. There is left lower opacification silhouetting the left abhi phragm. Left lower lobe infiltrate should be considered Endotracheal tube tip is 1 cm above the emily has advanced from comparison. Nasogastric tube transve rses the thorax. Left central venous catheter tip is in the superior vena cava region. IMPRESSION: 1. Bibasilar infiltrates may be greater on the left lower lobe. There is some progression. Continued follow-up is recommended. 2. Lines and catheters discussed above
[2021-10-18] MEDS: ATORVASTATIN 40 MG TAB PO SCH (08:23)
[2021-10-18] MEDS: GABAPENTIN 100 MG CAP PO SCH ×3 (08:23→19:32)
[2021-10-18] MEDS: PANTOPRAZOLE 40 MG/10 ML VIAL IVP SCH ×2 (08:30→19:55)
[2021-10-18] MEDS: CHLORHEXIDINE GLUCONATE 15 ML CUP MUCOUS MEM SCH ×2 (08:30→19:55)
[2021-10-18] MEDS: metroNIDAZOLE-NS PMX 500 MG in SALINE 1 100ML.BAG IVPB SCH ×3 (08:33→23:57)
[2021-10-18] MEDS ORDERED: HEPARIN SODIUM,PORCINE/PF 5,000 UNIT/0.5 ML SYRINGE SQ SCH (09:00)
--- NOTE | 2021-10-18 09:12 | P.PN ---
Subjective Progress Note Date: 10/17/21 10/17/2021: Patient was seen for a follow-up. Patient's son was present. Apparently patient developed an acute GI bleed yesterday. She was transferred to ICU. Patient underwent emergency EGD, which revealed large amount of fresh blood with clots noted in the stomach extending into the pylorus and the duodenum. 2 cm ulceration in the duodenal bulb with a small visible vessel, status post Endo clip placement. Large adherent clot noted in the pylorus extending into the duodenal bulb which could not be removed. Significant amount of bleeding noted in this area and most likely dealing with a large duodenal ulcer. Subsequently patient underwent exploratory laparotomy by Dr. Jones with repair of perforated duodenal ulcer and control of bleeding, pyloroplasty. Therefore patient could not be seen yesterday. Today patient is on propofol 30 mcg/kg/m. She also has received Dilaudid 2 mg IV. Per nursing report, she does respond to pain equally in the upper and lower limbs. Patient is in a lot of pain for which she was given Dilaudid. She did not follow commands however. At present exam was limited because of patient being sedated. 10/15/2021: Patient is a 66-year-old female admitted to the hospital for leg wounds. She has bilateral leg wounds, that have been weeping. Lately she has been falling and bumped her head. Patient underwent debridement of the wounds yesterday. Patient's was also present, who states that patient lives with her . She does not have any deficits otherwise. She walks by herself, does not use any assistive device. She has been complaining of a lot of pain in her legs. Because of her falls, she underwent a routine computed tomography scan of the head, which incidentally revealed subacute right parietal infarct. Patient also has toxic metabolic encephalopathy from UTI and perhaps pain medication. Patient was not taking any antiplatelet medication at home. CT head revealed right middle cerebral artery distribution subacute infarct, involving the right parietal temporal region. Patchy white matter hypodensity consistent with chronic small vessel ischemia. I personally reviewed computed tomography scan of the head and agree with the findings. Patient has smoked half pack per day for 40-50 years. This lately she has stop ped. She has been diagnosed with diabetes while in this hospital, as her hemoglobin A1c is 8. No previous history of diabetes. Objective - Vital Signs Vital signs: Vital Signs Temp 37.0 F L 10/18/21 08:00 Pulse 70 10/18/21 08:15 Resp 24 10/18/21 08:15 BP 100/60 10/18/21 08:15 Pulse Ox 97 10/18/21 08:15 Intake & Output 10/17/21 10/18/21 10/18/21 18:59 06:59 18:59 Intake Total 2264.200 2192.484 130 Output Total 502 775 125 Balance 5021.061 9070.484 5 Weight 87 kg 100.2 kg Intake: IV 1540 1690 130 Dextrose 5% in Water 1, 150 000 ml @ 50 mls/hr IV . Q23H [facility] with Sodium Bicarb (1 Meq/ml) 150 ml Rx#:[id number] Lactated Ringers 1,000 ml 1200 1300 100 @ 100 mls/hr IV .Q10H [facility] Rx#:[id number] Mvi, Adult No.4 with Vit 90 390 30 K 10 ml Trace (Conc-1Ml/ Dose) 1 ml Sodium Acetate 30 meq Potassium Acetate 20 meq Magnesium Sulfate gm 1 gm Calcium Gluconate 1 gm In Amino Acid 4.25%-D10w 1,000 ml @ 30 mls/hr IV .Q24H [facility] Rx#:[id number] metroNIDAZOLE-NS PMX 500 100 mg In Saline 1 100ml.bag @ 100 mls/hr IVPB ONCE [facility] Rx#:[id number] Intake, IV Titration 724.200 502.484 Amount Norepinephrine 8 mg In 516.000 327.064 Sodium Chloride 0.9% 250 ml @ 0.2 MCG/KG/MIN 32. 431 mls/hr IV .Q7H58M [facility] Rx#:[id number] propofoL 1,000 mg In 208.200 175.42 Empty Bag 1 bag @ 5 MCG/ KG/MIN 2.514 mls/hr IV . Q24H [facility] Rx#:[id number] Output: Drainage 20 40 Right Upper Abdomen 20 40 Urine 482 735 125 Other: Voiding Method Indwelling Catheter Indwelling Catheter ABP, PAP, CO, CI - Last Documented Arterial Blood Pressure 138/46 - Exam Patient is intubated, sedated. Pupils are equal, round and reacting. Gaze is midline. She does have a cough, gag. Rest of the examination deferred. - Labs CBC & Chem 7: 10/18/21 05:20 10/18/21 05:20 Labs: Abnormal Lab Results - Last 24 Hours (Table) 10/16/21 10/17/21 10/17/21 Range/Units 16:23 05:05 11:48 WBC (3.8-10.6) k/uL RBC (3.80-5.40) m/uL Hgb (11.4-16.0) gm/dL Hct (34.0-46.0) % RDW (11.5-15.5) % Neutrophils # (1.3-7.7) k/uL Lymphocytes # (1.0-4.8) k/uL Basophils # (0-0.2) k/uL ABG O2 Saturation (94-97) % Chloride (98-107) mmol/L BUN (7-17) mg/dL Glucose (74-99) mg/dL POC Glucose (mg/dL) 169 H (75-99) mg/dL Calcium (8.4-10.2) mg/dL Phosphorus 5.0 H (2.5-4.5) mg/dL AST (14-36) U/L Total Protein (6.3-8.2) g/dL Albumin (3.5-5.0) g/dL Crossmatch See Detail 10/17/21 10/17/21 10/18/21 Range/Units 17:46 23:32 05:19 WBC (3.8-10.6) k/uL RBC (3.80-5.40) m/uL Hgb (11.4-16.0) gm/dL Hct (34.0-46.0) % RDW (11.5-15.5) % Neutrophils # (1.3-7.7) k/uL Lymphocytes # (1.0-4.8) k/uL Basophils # (0-0.2) k/uL ABG O2 Saturation (94-97) % Chloride (98-107) mmol/L BUN (7-17) mg/dL Glucose (74-99) mg/dL POC Glucose (mg/dL) 160 H 152 H 184 H (75-99) mg/dL Calcium (8.4-10.2) mg/dL Phosphorus (2.5-4.5) mg/dL AST (14-36) U/L Total Protein (6.3-8.2) g/dL Albumin (3.5-5.0) g/dL Crossmatch 10/18/21 10/18/21 10/18/21 Range/Units 05:20 05:20 05:34 WBC 37.4 H (3.8-10.6) k/uL RBC 2.38 L (3.80-5.40) m/uL Hgb 6.8 L* D (11.4-16.0) gm/dL Hct 20.6 L (34.0-46.0) % RDW 16.5 H (11.5-15.5) % Neutrophils # 34.9 H (1.3-7.7) k/uL Lymphocytes # 0.9 L (1.0-4.8) k/uL Basophils # 0.3 H (0-0.2) k/uL ABG O2 Saturation 98.5 H (94-97) % Chloride 114 H (98-107) mmol/L BUN 19 H (7-17) mg/dL Glucose 151 H (74-99) mg/dL POC Glucose (mg/dL) (75-99) mg/dL Calcium 6.5 L (8.4-10.2) mg/dL Phosphorus (2.5-4.5) mg/dL AST 45 H (14-36) U/L Total Protein 3.4 L (6.3-8.2) g/dL Albumin 1.4 L (3.5-5.0) g/dL Crossmatch Microbiology - Last 24 Hours (Table) 10/11/21 15:44 Blood Culture - Final Blood No Growth after 144 hours 10/11/21 15:44 Blood Culture - Final Blood No Growth after 144 hours 10/16/21 23:45 Gram Stain - Preliminary Sputum Sputum Culture - Preliminary Assessment and Plan Assessment: 1. Large, subacute, right cerebral hemispheric infarct, involving the right parietal temporal region-patient does have some left-sided visual field deficits and left rai-sensory neglect. 2. Toxic encephalopathy/delirium secondary to infection 3. Acute UTI. Urine cultures growing E. coli. 4. New onset diabetes 5. Tobacco use 6. Weeping ulcers of the lower extremities, status post debridement 7. Status post massive upper GI bleeding secondary to bleeding gastric and duodenal ulcer. Status post pyloroplasty. Plan: 1. Patient is critically sick at this time. Antiplatelet medications held because of GI bleed. GI and surgical input appreciated. Patient on Protonix 40 mg IV twice a day. Continue Lipitor 40 mg daily. 2. Patient at present is intubated, sedated, therefore examination is limited. Per nursing report, she was moving all 4 extremities equally when the sedation was decreased. 3. 2-D echocardiogram revealed inferoseptal hypokinesis or aortic sclerosis with mild aortic stenosis and mild mitral and mild to moderate tricuspid regurgitation. EF is 40-45%. Grade 1 diastolic dysfunction. Mid to basal inferoseptal is hypokinetic. 4. Patient apparently has been declining MRA of the brain that was recommended on the last visit. 5. Carotid Doppler revealed no significant common or internal carotid artery stenosis. Antegrade flow in the left vertebral artery. Unable to identify flow on the right side 6. PT, OT and speech therapy evaluations. Lipid panel cholesterol 159, LDL 101, HDL 28.3 and triglycerides 146, continue Lipitor 40 mg daily. Patient's hemoglobin A1c 8.0. Recommend optimize control of diabetes to target A1c <7.0. TSH slightly low 0.222 with normal free T4 1 0.63. IM to address thyroid functions. 7. UA shows large amount of leukocyte Estrace. Urine growing E. coli. Patient currently on Zosyn 8. Discussed with patient's son and nursing staff in detail. We will follow periodically.
[2021-10-18] MEDS: ANIDULAFUNGIN 100 MG in SODIUM CHLORIDE 0.9% 100 ML IVPB SCH (09:31)
[2021-10-18] MEDS: ENOXAPARIN 40 MG/0.4 ML SYRINGE SQ SCH (10:21)
[2021-10-18] MEDS: CEFEPIME 2 GM in SODIUM CHLORIDE 0.9% 100 ML IVPB SCH ×2 (11:06→19:55)
[2021-10-18 11:18] LABS: Glucose,Whole Blood 158 mg/dL (75-99)
--- NOTE | 2021-10-18 11:26 | P.PN ---
Subjective Progress Note Date: 10/18/21 Principal diagnosis: Massive upper GI bleeding secondary to duodenal ulcer This is a 66-year-old female with history of multiple medical problems, patient was admitted initially on 10/11/2021 with mostly bilateral lower extremities cellulitis. Patient was seen by many consultants including internal medicine, neurology, psychiatry, vascular surgery, cardiology, infectious disease, because in addition to her cellulitis of lower extremities, patient had cardiomyopathy with LV dysfunction, she also had subacute CVA, peripheral vessel occlusive disease, and many consultants were addressing her medical issues. Patient was in the ICU yesterday as an overflow, however she had a sudden episode of upper GI bleeding requiring multiple blood transfusions including 4 units of packed RBCs, 2 units of fresh was a plasma, 1 unit of platelets, patient was on aspirin and Plavix. These were placed on hold, patient was seen by gastroenterology, underwent EGD, and she was found to have a bleeding duodenal ulcer. Surgery was consulted on the patient and the patient required surgical intervention yesterday. Patient underwent exploratory laparotomy and repair of perforated to widen ulcer and control of bleeding/pyloroplasty. Postoperatively patient was in the ICU on mechanical ventilation, and I was asked to see her by Dr. grijalva on consultation. She is now on assist control rate of 16 and the volume of 400 FiO2 50% and PEEP of 5 ABG showed a pO2 of 169 pCO2 of 36 pH of 7.38, hence I cut down her FiO2 to 40%. Her hemoglobin this morning is 9.2. Patient is requiring norepinephrine at 0.22 mcg/kg/m, she is on antibiotics, she is also on propofol at 50 mcg/kg/m, she was on bicarb overnight and today after reviewing her labs I discontinued her bicarb drip. I also repositioned her central line which was entering the left internal jugular and ending in the right subclavian on the other side. Patient had some bloody bowel movement today, and she continues to have some coffee ground material in the nasogastric tube but did not require any blood transfusions since yesterday. Patient is noted to have a WBC count of 48.6 hemoglobin is 9.2. Basic metabolic profile is normal, BUN is 19 and creatinine 1.0, blood sugar is 155 this morning. Liver profile is relatively unremarkable. Patient was reevaluated today on 10/18/2021, remains intubated and mechanically ventilated. She is on assist control rate of 16, while at 400 FiO2 40% PEEP of 5. ABG showed a pO2 of 107 pCO2 39 pH of 7.3. Patient remains on propofol at 55 mcg/kg/m she is also on TPN and she still requiring norepinephrine 0.16 mcg/kg/m. Hemoglobin dropped yesterday, and now she is receiving another unit of packed RBCs. Hoping that her blood pressure would improve after the transfusion, and we'll continue to taper down the norepinephrine. No rectal bleeding, patient does have coffee ground material in the nasogastric tube output. Patient is sedated, however when the propofol was placed on hold, she became extremely agitated, and I recommended that we continue sedating the patient, and she is not quite ready for weaning and extubation at this point yet. Not to mention the patient is sedated requiring norepinephrine for hemodynamic support. We'll continue to try on a daily basis weaning possible off mechanical ventilation. In the meantime we'll continue TPN, continue nutritional support, continue treatment for her ulcer, he is on Protonix, and I plan to start the patient on Protonix 40 mg subcu daily, cleared by surgery for subcu heparin. Chest x-ray showed mild interstitial changes today. Possibly mild interstitial edema. WBC count is down to 37.4 hemoglobin is 6.8 today. Electrolytes are unremarkable except for slightly low potassium of 3.5. ABG showed a pO2 of 107 pCO2 of 39 pH of 7.38. Patient is on 50% FiO2. Cut down to 40% Objective - Vital Signs Vital signs: Vital Signs Temp 98.3 F 10/18/21 10:56 Pulse 102 H 10/18/21 11:00 Resp 29 H 10/18/21 11:00 BP 93/61 10/18/21 11:00 Pulse Ox 93 L 10/18/21 11:00 Intake & Output 10/17/21 10/18/21 10/18/21 18:59 06:59 18:59 Intake Total 2264.200 2192.484 1045.169 Output Total 502 775 855 Balance 9178.962 9386.484 190.169 Weight 87 kg 100.2 kg 100.2 kg Intake: IV 1540 1690 520 Dextrose 5% in Water 1, 150 000 ml @ 50 mls/hr IV . Q23H [facility] with Sodium Bicarb (1 Meq/ml) 150 ml Rx#:[id number] Lactated Ringers 1,000 ml 1200 1300 400 @ 100 mls/hr IV .Q10H [facility] Rx#:[id number] Mvi, Adult No.4 with Vit 90 390 120 K 10 ml Trace (Conc-1Ml/ Dose) 1 ml Sodium Acetate 30 meq Potassium Acetate 20 meq Magnesium Sulfate gm 1 gm Calcium Gluconate 1 gm In Amino Acid 4.25%-D10w 1,000 ml @ 30 mls/hr IV .Q24H [facility] Rx#:[id number] metroNIDAZOLE-NS PMX 500 100 mg In Saline 1 100ml.bag @ 100 mls/hr IVPB ONCE [facility] Rx#:[id number] Intake, IV Titration 724.200 502.484 215.169 Amount Norepinephrine 8 mg In 516.000 327.064 150.099 Sodium Chloride 0.9% 250 ml @ 0.2 MCG/KG/MIN 32. 431 mls/hr IV .Q7H58M [facility] Rx#:[id number] propofoL 1,000 mg In 208.200 175.42 65.070 Empty Bag 1 bag @ 5 MCG/ KG/MIN 2.514 mls/hr IV . Q24H [facility] Rx#:[id number] Blood Product 310 Rc As-1 Unit 310 [id number] Output: Drainage 20 40 450 Right Upper Abdomen 20 40 450 Urine 482 735 405 Other: Voiding Method Indwelling Catheter Indwelling Catheter Indwelling Catheter ABP, PAP, CO, CI - Last Documented Arterial Blood Pressure 138/44 - Exam Physical Exam: Revealed a 66-year-old female obese, intubated and mechanically ventilated, sedated, not in distress. Head: Atraumatic normocephalic. Endotracheal tube and nasogastric tube are intact. HEENT:[Neck is supple.] [No neck masses.] [No thyromegaly.] [No JVD.] Left IJ triple-lumen catheter is noted this was placed by anesthesia yesterday. Chest: [Symmetrical chest expansion, fine crackles at the bases no rhonchi and no wheezes..] Cardiac Exam: [Normal S1 and S2, no S3 gallop, no murmur.] Abdomen: Postsurgical, nontender, abdominal binder is noted. Negative bowel sounds. Extremities: Both lower extremities are wrapped with Hans wraps. Hans wraps were changed yesterday by vascular surgery. Neurological Exam: Could not assess, patient is sedated on propofol. However according to the nurse the patient became extremely agitated, went into coughing spells after the sedation was placed on hold. And could not fully assess mental status. Psychiatric: Could not assess. Patient is sedated, on propofol. - Labs CBC & Chem 7: 10/18/21 05:20 10/18/21 05:20 Labs: Abnormal Lab Results - Last 24 Hours (Table) 10/16/21 10/17/21 10/17/21 Range/Units 16:23 05:05 11:48 WBC (3.8-10.6) k/uL RBC (3.80-5.40) m/uL Hgb (11.4-16.0) gm/dL Hct (34.0-46.0) % RDW (11.5-15.5) % Neutrophils # (1.3-7.7) k/uL Lymphocytes # (1.0-4.8) k/uL Basophils # (0-0.2) k/uL ABG O2 Saturation (94-97) % Chloride (98-107) mmol/L BUN (7-17) mg/dL Glucose (74-99) mg/dL POC Glucose (mg/dL) 169 H (75-99) mg/dL Calcium (8.4-10.2) mg/dL Phosphorus 5.0 H (2.5-4.5) mg/dL AST (14-36) U/L Total Protein (6.3-8.2) g/dL Albumin (3.5-5.0) g/dL Crossmatch See Detail 10/17/21 10/17/21 10/18/21 Range/Units 17:46 23:32 05:19 WBC (3.8-10.6) k/uL RBC (3.80-5.40) m/uL Hgb (11.4-16.0) gm/dL Hct (34.0-46.0) % RDW (11.5-15.5) % Neutrophils # (1.3-7.7) k/uL Lymphocytes # (1.0-4.8) k/uL Basophils # (0-0.2) k/uL ABG O2 Saturation (94-97) % Chloride (98-107) mmol/L BUN (7-17) mg/dL Glucose (74-99) mg/dL POC Glucose (mg/dL) 160 H 152 H 184 H (75-99) mg/dL Calcium (8.4-10.2) mg/dL Phosphorus (2.5-4.5) mg/dL AST (14-36) U/L Total Protein (6.3-8.2) g/dL Albumin (3.5-5.0) g/dL Crossmatch 10/18/21 10/18/21 10/18/21 Range/Units 05:20 05:20 05:34 WBC 37.4 H (3.8-10.6) k/uL RBC 2.38 L (3.80-5.40) m/uL Hgb 6.8 L* D (11.4-16.0) gm/dL Hct 20.6 L (34.0-46.0) % RDW 16.5 H (11.5-15.5) % Neutrophils # 34.9 H (1.3-7.7) k/uL Lymphocytes # 0.9 L (1.0-4.8) k/uL Basophils # 0.3 H (0-0.2) k/uL ABG O2 Saturation 98.5 H (94-97) % Chloride 114 H (98-107) mmol/L BUN 19 H (7-17) mg/dL Glucose 151 H (74-99) mg/dL POC Glucose (mg/dL) (75-99) mg/dL Calcium 6.5 L (8.4-10.2) mg/dL Phosphorus (2.5-4.5) mg/dL AST 45 H (14-36) U/L Total Protein 3.4 L (6.3-8.2) g/dL Albumin 1.4 L (3.5-5.0) g/dL Crossmatch Microbiology - Last 24 Hours (Table) 10/11/21 15:44 Blood Culture - Final Blood No Growth after 144 hours 10/11/21 15:44 Blood Culture - Final Blood No Growth after 144 hours 10/16/21 23:45 Gram Stain - Preliminary Sputum Sputum Culture - Preliminary Assessment and Plan Assessment: Impression: Postoperative hypoxic respiratory failure requiring mechanical ventilation and the patient will remain mechanically ventilated mostly because of her hemodynamic instability, and massive GI bleeding secondary to bleeding/perforated duodenal ulcer this is expected considering the patient multiple medical problems and again she is presently requiring pressors/norepinephrine and the patient is status post multiple blood products transfusion patient is now postoperative day #2. Massive upper GI bleeding secondary to bleeding duodenal ulcer Chronic cellulitis of lower extremities Acute urinary tract infection on presentation Type 2 diabetes History of subacute CVA Toxic/metabolic encephalopathy, as noted by neurology. Sepsis, and possible septic shock. Hypovolemic shock is not entirely ruled out. History of cardiomyopathy and LV dysfunction. Recommendation: Continue ventilatory support, patient is not quite ready for weaning at this point, but will try on a daily basis weaning trials. Patient will be given gentle diuresis. As she is known to have history of cardiomyopathy and LV dysfunction. Continue hemodynamic support, norepinephrine will be titrated accordingly maintaining a mean arterial pressure of 65. Continue GI prophylaxis. Patient is on Protonix. Continue to monitor hemoglobin. And address accordingly transfuse if below 7. Patient will be transfused 1 unit today because hemoglobin was 6.8. Continue antibiotics as per infectious disease on the case. Continue Eraxis. Continue Flagyl. Continue cefepime Start Lovenox at 40 mg subcu daily as the patient is high risk for DVT and pulmonary embolism Continue TPN. Monitor closely I's and O's and monitor daily electrolytes and data blood gases. Continue to hold the Plavix and aspirin. And nonsteroidal anti-inflammatory medication Will hold sedation on a daily basis and she will have mental assessment today of sedation. We'll continue to follow while in the ICU. Critical care time is over 30 minutes Time with Patient: Greater than 30
--- NOTE | 2021-10-18 11:42 | P.PN ---
Subjective Interval history: This is a 66-year-old female with history of multiple medical problems, patient was admitted initially on 10/11/2021 with mostly bilateral lower extremities cellulitis. Patient was seen by many consultants including internal medicine, neurology, psychiatry, vascular surgery, cardiology, infectious disease, because in addition to her cellulitis of lower extremities, patient had cardiomyopathy with LV dysfunction, she also had subacute CVA, peripheral vessel occlusive disease, and many consultants were addressing her medical issues. Patient was in the ICU yesterday as an overflow, however she had a sudden episode of upper GI bleeding requiring multiple blood transfusions including 4 units of packed RBCs, 2 units of fresh was a plasma, 1 unit of platelets, patient was on aspirin and Plavix. These were placed on hold, patient was seen by gastroenterology, underwent EGD, and she was found to have a bleeding duodenal ulcer. Surgery was consulted on the patient and the patient required surgical intervention yesterday. Patient underwent exploratory laparotomy and repair of perforated to widen ulcer and control of bleeding/pyloroplasty. Postoperatively patient was in the ICU on mechanical ventilation, and I was asked to see her by Dr. grijalva on consultation. She is now on assist control rate of 16 and the volume of 400 FiO2 50% and PEEP of 5 ABG showed a pO2 of 169 pCO2 of 36 pH of 7.38, hence I cut down her FiO2 to 40%. Her hemoglobin this morning is 9.2. Patient is requiring norepinephrine at 0.22 mcg/kg/m, she is on antibiotics, she is also on propofol at 50 mcg/kg/m, she was on bicarb overnight and today after reviewing her labs I discontinued her bicarb drip. I also repositioned her central line which was entering the left internal jugular and ending in the right subclavian on the other side. Patient had some bloody bowel movement today, and she continues to have some coffee ground material in the nasogastric tube but did not require any blood transfusions since yesterday. Patient is noted to have a WBC count of 48.6 hemoglobin is 9.2. Basic metabolic profile is normal, BUN is 19 and creatinine 1.0, blood sugar is 155 this morning. Liver profile is relatively unremarkable Patient was seen and examined in ICU. She is intubated and sedated. Overnight patient received her fifth units of packed RBCs with hemoglobin 6.8. She remains on Levophed drip Physical examination: Head: Atraumatic normocephalic. Endotracheal tube and nasogastric tube are intact. HEENT:[Neck is supple.] [No neck masses.] [No thyromegaly.] [No JVD.] Left IJ triple-lumen catheter is noted this was placed by anesthesia yesterday. Chest: [Symmetrical chest expansion, fine crackles at the bases no rhonchi and no wheezes..] Cardiac Exam: [Normal S1 and S2, no S3 gallop, no murmur.] Abdomen: Postsurgical, nontender, abdominal binder is noted. Negative bowel sounds. Extremities: Both lower extremities are wrapped with Hans wraps. However there is obviously some oozing noted in both lower extremities left more so than right. To be addressed later today by vascular surgery. Neurological Exam: Could not assess, patient is sedated. Assessment and plan: #Postoperative hypoxic respiratory failure -requiring mechanical ventilation and the patient will remain mechanically ventilated mostly because of her hemodynamic instability, and massive GI bleeding secondary to bleeding/perforated duodenal ulcer this is expected considering the patient multiple medical problems and again she is presently requiring pressors/norepinephrine and the patient is status post multiple blood products transfusion -Vent management per critical care Massive upper GI bleeding secondary to bleeding duodenal ulcer -Status post respiratory laparotomy with repair of perforated duodenal ulcer and pyloroplasty by general surgeon on September 16 -Aspirin and Plavix on hold Bilateral lower extremity cellulitis secondary to nonhealing vascular status ulcers -Status post debridement with deep tissue culture by vascular surgery -Culture grew multiple organisms -Resume IV cefepime per ID -Infectious disease following Acute urinary tract infection on presentation Type 2 diabetes History of subacute CVA -Aspirin and Plavix on hold secondary to above Toxic/metabolic encephalopathy, as noted by neurology. Sepsis, and possible septic shock. Hypovolemic shock is not entirely ruled out. History of cardiomyopathy and LV dysfunction. Objective - Vital Signs Vital signs: Vital Signs Temp 98.3 F 10/18/21 10:56 Pulse 102 H 10/18/21 11:00 Resp 29 H 10/18/21 11:00 BP 93/61 10/18/21 11:00 Pulse Ox 93 L 10/18/21 11:00 Intake & Output 10/17/21 10/18/21 10/18/21 18:59 06:59 18:59 Intake Total 2264.200 2192.484 1055.995 Output Total 502 775 855 Balance 2295.308 2645.484 200.995 Weight 87 kg 100.2 kg 100.2 kg Intake: IV 1540 1690 520 Dextrose 5% in Water 1, 150 000 ml @ 50 mls/hr IV . Q23H [facility] with Sodium Bicarb (1 Meq/ml) 150 ml Rx#:[id number] Lactated Ringers 1,000 ml 1200 1300 400 @ 100 mls/hr IV .Q10H [facility] Rx#:[id number] Mvi, Adult No.4 with Vit 90 390 120 K 10 ml Trace (Conc-1Ml/ Dose) 1 ml Sodium Acetate 30 meq Potassium Acetate 20 meq Magnesium Sulfate gm 1 gm Calcium Gluconate 1 gm In Amino Acid 4.25%-D10w 1,000 ml @ 30 mls/hr IV .Q24H [facility] Rx#:[id number] metroNIDAZOLE-NS PMX 500 100 mg In Saline 1 100ml.bag @ 100 mls/hr IVPB ONCE STA Rx#:[id number] Intake, IV Titration 724.200 502.484 225.995 Amount Norepinephrine 8 mg In 516.000 327.064 153.342 Sodium Chloride 0.9% 250 ml @ 0.2 MCG/KG/MIN 32. 431 mls/hr IV .Q7H58M [facility] Rx#:[id number] propofoL 1,000 mg In 208.200 175.42 72.653 Empty Bag 1 bag @ 5 MCG/ KG/MIN 2.514 mls/hr IV . Q24H [facility] Rx#:[id number] Blood Product 310 Rc As-1 Unit 310 [id number] Output: Drainage 20 40 450 Right Upper Abdomen 20 40 450 Urine 482 735 405 Other: Voiding Method Indwelling Catheter Indwelling Catheter Indwelling Catheter ABP, PAP, CO, CI - Last Documented Arterial Blood Pressure 138/44 - Labs CBC & Chem 7: 10/18/21 05:20 10/18/21 05:20 Labs: Abnormal Lab Results - Last 24 Hours (Table) 10/16/21 10/17/21 10/17/21 Range/Units 16:23 05:05 11:48 WBC (3.8-10.6) k/uL RBC (3.80-5.40) m/uL Hgb (11.4-16.0) gm/dL Hct (34.0-46.0) % RDW (11.5-15.5) % Neutrophils # (1.3-7.7) k/uL Lymphocytes # (1.0-4.8) k/uL Basophils # (0-0.2) k/uL ABG O2 Saturation (94-97) % Chloride (98-107) mmol/L BUN (7-17) mg/dL Glucose (74-99) mg/dL POC Glucose (mg/dL) 169 H (75-99) mg/dL Calcium (8.4-10.2) mg/dL Phosphorus 5.0 H (2.5-4.5) mg/dL AST (14-36) U/L Total Protein (6.3-8.2) g/dL Albumin (3.5-5.0) g/dL Crossmatch See Detail 10/17/21 10/17/21 10/18/21 Range/Units 17:46 23:32 05:19 WBC (3.8-10.6) k/uL RBC (3.80-5.40) m/uL Hgb (11.4-16.0) gm/dL Hct (34.0-46.0) % RDW (11.5-15.5) % Neutrophils # (1.3-7.7) k/uL Lymphocytes # (1.0-4.8) k/uL Basophils # (0-0.2) k/uL ABG O2 Saturation (94-97) % Chloride (98-107) mmol/L BUN (7-17) mg/dL Glucose (74-99) mg/dL POC Glucose (mg/dL) 160 H 152 H 184 H (75-99) mg/dL Calcium (8.4-10.2) mg/dL Phosphorus (2.5-4.5) mg/dL AST (14-36) U/L Total Protein (6.3-8.2) g/dL Albumin (3.5-5.0) g/dL Crossmatch 10/18/21 10/18/21 10/18/21 Range/Units 05:20 05:20 05:34 WBC 37.4 H (3.8-10.6) k/uL RBC 2.38 L (3.80-5.40) m/uL Hgb 6.8 L* D (11.4-16.0) gm/dL Hct 20.6 L (34.0-46.0) % RDW 16.5 H (11.5-15.5) % Neutrophils # 34.9 H (1.3-7.7) k/uL Lymphocytes # 0.9 L (1.0-4.8) k/uL Basophils # 0.3 H (0-0.2) k/uL ABG O2 Saturation 98.5 H (94-97) % Chloride 114 H (98-107) mmol/L BUN 19 H (7-17) mg/dL Glucose 151 H (74-99) mg/dL POC Glucose (mg/dL) (75-99) mg/dL Calcium 6.5 L (8.4-10.2) mg/dL Phosphorus (2.5-4.5) mg/dL AST 45 H (14-36) U/L Total Protein 3.4 L (6.3-8.2) g/dL Albumin 1.4 L (3.5-5.0) g/dL Crossmatch 10/18/21 Range/Units 11:16 WBC (3.8-10.6) k/uL RBC (3.80-5.40) m/uL Hgb (11.4-16.0) gm/dL Hct (34.0-46.0) % RDW (11.5-15.5) % Neutrophils # (1.3-7.7) k/uL Lymphocytes # (1.0-4.8) k/uL Basophils # (0-0.2) k/uL ABG O2 Saturation (94-97) % Chloride (98-107) mmol/L BUN (7-17) mg/dL Glucose (74-99) mg/dL POC Glucose (mg/dL) 158 H (75-99) mg/dL Calcium (8.4-10.2) mg/dL Phosphorus (2.5-4.5) mg/dL AST (14-36) U/L Total Protein (6.3-8.2) g/dL Albumin (3.5-5.0) g/dL Crossmatch Microbiology - Last 24 Hours (Table) 10/11/21 15:44 Blood Culture - Final Blood No Growth after 144 hours 10/11/21 15:44 Blood Culture - Final Blood No Growth after 144 hours 10/16/21 23:45 Gram Stain - Preliminary Sputum Sputum Culture - Preliminary
[2021-10-18] MEDS: FUROSEMIDE 10 MG/ML 2 ML VIAL IV SCH ×2 (11:50→19:55)
--- NOTE | 2021-10-18 12:19 | P.PN ---
Subjective Progress Note Date: 10/18/21 CHIEF COMPLAINT: Duodenal ulcer HISTORY OF PRESENT ILLNESS: Patient is in the ICU and intubated. She is postop day #2 status post Exploratory laparotomy with repair of perforated duodenal ulcer and control of bleeding, pyloroplasty. Patient remains intubated. Patient did not tolerate sedation holiday this morning. They are titrating down on the Levophed. Her hemoglobin has dropped from 9.2-6.8. She's receiving a unit of blood today. Per nursing staff showing have the one on maroon colored stool yesterday. NG tube with bloody appearance likely due to residual clots. MARIA LUISA drain more serous in color with 450 mL output. PHYSICAL EXAM: VITAL SIGNS: Reviewed. GENERAL: Well-developed in no acute distress. HEENT: No sclera icterus. Extraocular movements grossly intact. Moist buccal mucosa. Head is atraumatic, normocephalic. ABDOMEN: Soft. Mildly distended. Incisional dressing with some shadowing at the distal aspect NEUROLOGIC: Alert and oriented. Cranial nerves II through XII grossly intact. ASSESSMENT: 1. Duodenal ulcer with perforation and active bleeding status post Exploratory laparotomy with repair of perforated duodenal ulcer and control of bleeding, pyloroplasty. PLAN: -Continue NG tube -Continue PPI -Agree with blood transfusion -Antibiotics per ID service -Continue TPN for nutrition support -Continue ICU management -Continue supportive care -DVT prophylaxis Lovenox Physician Academic Guidance Specialist note has been reviewed by physician. Signing provider agrees with the documented findings, assessment, and plan of care. I have personally seen and examined the patient, reviewed the SKIRT TRIMMER /PAs history, exam and MDM and agree with the assessment and plan as written. Based on total visit time, I have performed more than 50% of the visit. As above: The patient remains on low-dose pressors. She did have a bloody stool yesterday. Continue to monitor for possible recurrent bleeding but unlikely given the intraoperative findings. Keep nasogastric tube to suction. Continue ventilatory weaning per pulmonary. Continue antibiotics per infectious disease. Will follow. Objective - Vital Signs Vital signs: Vital Signs Temp 98.3 F 10/18/21 10:56 Pulse 102 H 10/18/21 11:00 Resp 29 H 10/18/21 11:00 BP 93/61 10/18/21 11:00 Pulse Ox 93 L 10/18/21 11:00 Intake & Output 10/17/21 10/18/21 10/18/21 18:59 06:59 18:59 Intake Total 2264.200 2192.484 1062.198 Output Total 502 775 855 Balance 6042.448 9893.484 207.198 Weight 87 kg 100.2 kg 100.2 kg Intake: IV 1540 1690 520 Dextrose 5% in Water 1, 150 000 ml @ 50 mls/hr IV . Q23H [facility] with Sodium Bicarb (1 Meq/ml) 150 ml Rx#:[id number] Lactated Ringers 1,000 ml 1200 1300 400 @ 100 mls/hr IV .Q10H [facility] Rx#:[id number] Mvi, Adult No.4 with Vit 90 390 120 K 10 ml Trace (Conc-1Ml/ Dose) 1 ml Sodium Acetate 30 meq Potassium Acetate 20 meq Magnesium Sulfate gm 1 gm Calcium Gluconate 1 gm In Amino Acid 4.25%-D10w 1,000 ml @ 30 mls/hr IV .Q24H [facility] Rx#:[id number] metroNIDAZOLE-NS PMX 500 100 mg In Saline 1 100ml.bag @ 100 mls/hr IVPB ONCE STA Rx#:[id number] Intake, IV Titration 724.200 502.484 232.198 Amount Norepinephrine 8 mg In 516.000 327.064 155.774 Sodium Chloride 0.9% 250 ml @ 0.2 MCG/KG/MIN 32. 431 mls/hr IV .Q7H58M [facility] Rx#:[id number] propofoL 1,000 mg In 208.200 175.42 76.424 Empty Bag 1 bag @ 5 MCG/ KG/MIN 2.514 mls/hr IV . Q24H [facility] Rx#:[id number] Blood Product 310 Rc As-1 Unit 310 [id number] Output: Drainage 20 40 450 Right Upper Abdomen 20 40 450 Urine 482 735 405 Other: Voiding Method Indwelling Catheter Indwelling Catheter Indwelling Catheter ABP, PAP, CO, CI - Last Documented Arterial Blood Pressure 138/44 - Labs CBC & Chem 7: 10/18/21 13:30 10/18/21 05:20 Labs: Abnormal Lab Results - Last 24 Hours (Table) 10/16/21 10/17/21 10/17/21 Range/Units 16:23 05:05 17:46 WBC (3.8-10.6) k/uL RBC (3.80-5.40) m/uL Hgb (11.4-16.0) gm/dL Hct (34.0-46.0) % RDW (11.5-15.5) % Neutrophils # (1.3-7.7) k/uL Lymphocytes # (1.0-4.8) k/uL Basophils # (0-0.2) k/uL ABG O2 Saturation (94-97) % Chloride (98-107) mmol/L BUN (7-17) mg/dL Glucose (74-99) mg/dL POC Glucose (mg/dL) 160 H (75-99) mg/dL Calcium (8.4-10.2) mg/dL Phosphorus 5.0 H (2.5-4.5) mg/dL AST (14-36) U/L Total Protein (6.3-8.2) g/dL Albumin (3.5-5.0) g/dL Crossmatch See Detail 10/17/21 10/18/21 10/18/21 Range/Units 23:32 05:19 05:20 WBC (3.8-10.6) k/uL RBC (3.80-5.40) m/uL Hgb (11.4-16.0) gm/dL Hct (34.0-46.0) % RDW (11.5-15.5) % Neutrophils # (1.3-7.7) k/uL Lymphocytes # (1.0-4.8) k/uL Basophils # (0-0.2) k/uL ABG O2 Saturation (94-97) % Chloride 114 H (98-107) mmol/L BUN 19 H (7-17) mg/dL Glucose 151 H (74-99) mg/dL POC Glucose (mg/dL) 152 H 184 H (75-99) mg/dL Calcium 6.5 L (8.4-10.2) mg/dL Phosphorus (2.5-4.5) mg/dL AST 45 H (14-36) U/L Total Protein 3.4 L (6.3-8.2) g/dL Albumin 1.4 L (3.5-5.0) g/dL Crossmatch 10/18/21 10/18/21 10/18/21 Range/Units 05:20 05:34 11:16 WBC 37.4 H (3.8-10.6) k/uL RBC 2.38 L (3.80-5.40) m/uL Hgb 6.8 L* D (11.4-16.0) gm/dL Hct 20.6 L (34.0-46.0) % RDW 16.5 H (11.5-15.5) % Neutrophils # 34.9 H (1.3-7.7) k/uL Lymphocytes # 0.9 L (1.0-4.8) k/uL Basophils # 0.3 H (0-0.2) k/uL ABG O2 Saturation 98.5 H (94-97) % Chloride (98-107) mmol/L BUN (7-17) mg/dL Glucose (74-99) mg/dL POC Glucose (mg/dL) 158 H (75-99) mg/dL Calcium (8.4-10.2) mg/dL Phosphorus (2.5-4.5) mg/dL AST (14-36) U/L Total Protein (6.3-8.2) g/dL Albumin (3.5-5.0) g/dL Crossmatch Microbiology - Last 24 Hours (Table) 10/11/21 15:44 Blood Culture - Final Blood No Growth after 144 hours 10/11/21 15:44 Blood Culture - Final Blood No Growth after 144 hours 10/16/21 23:45 Gram Stain - Preliminary Sputum Sputum Culture - Preliminary
[2021-10-18 13:46] LABS: Anisocytosis Slight; HGB 8.1 gm/dL (11.4-16.0); MCH 30.5 pg (25.0-35.0); MCHC 33.9 g/dL (31.0-37.0); MCV 89.8 fL (80.0-100.0); Mean Platelet Volume 8.2; Platelet Count 170 k/uL (150-450); RBC 2.67 m/uL (3.80-5.40); RDW 17.1 % (11.5-15.5); WBC 32.3 k/uL (3.8-10.6)
[2021-10-18 15:24] LABS: Calcium 6.5 mg/dL (8.4-10.2); Magnesium 1.9 mg/dL (1.6-2.3); Potassium 3.2 mmol/L (3.5-5.1)
--- NOTE | 2021-10-18 15:31 | P.PN ---
Subjective Progress Note Date: 10/18/21 Principal diagnosis: Bilateral lower extremity venous stasis ulcer and cellulitis Patient is a 66-year-old female who has not seen a physician in 20 years presented to the hospital with significant bilateral lower extremity necrotic wound and secondary cellulitis in this patient who is status post surgical debridement of these wounds in the OR on 10/13/2021. Patient did have a GI bleed could not be controlled through the EGD patient subsequently taken to the OR and status post laparotomy for a bleeding and perforated duodenal ulcer disease on 10/16/2021 On today's evaluation that is 10/18/2021, the patient continues to be afebrile, the patient is hemodynamically stable and is requiring a lot of assistance support per the nursing staff, patient is intubated on the vent and FiO2 is stable at 40%, no significant purulent secretions with eustachian tube, no di arrhea or any other changes reported by nursing staff Objective - Vital Signs Vital signs: Vital Signs Temp 98.4 F 10/18/21 12:00 Pulse 74 10/18/21 12:30 Resp 20 10/18/21 12:30 BP 92/58 10/18/21 12:30 Pulse Ox 98 10/18/21 12:30 Intake & Output 10/17/21 10/18/21 10/18/21 18:59 06:59 18:59 Intake Total 2264.200 2192.484 1192.198 Output Total 573 783 8582 Balance 7448.496 1170.484 62.198 Weight 87 kg 100.2 kg 100.2 kg Intake: IV 1540 1690 650 Dextrose 5% in Water 1, 150 000 ml @ 50 mls/hr IV . Q23H [facility] with Sodium Bicarb (1 Meq/ml) 150 ml Rx#:[id number] Lactated Ringers 1,000 ml 1200 1300 500 @ 100 mls/hr IV .Q10H [facility] Rx#:[id number] Mvi, Adult No.4 with Vit 90 390 150 K 10 ml Trace (Conc-1Ml/ Dose) 1 ml Sodium Acetate 30 meq Potassium Acetate 20 meq Magnesium Sulfate gm 1 gm Calcium Gluconate 1 gm In Amino Acid 4.25%-D10w 1,000 ml @ 30 mls/hr IV .Q24H [facility] Rx#:[id number] metroNIDAZOLE-NS PMX 500 100 mg In Saline 1 100ml.bag @ 100 mls/hr IVPB ONCE STA Rx#:[id number] Intake, IV Titration 724.200 502.484 232.198 Amount Norepinephrine 8 mg In 516.000 327.064 155.774 Sodium Chloride 0.9% 250 ml @ 0.2 MCG/KG/MIN 32. 431 mls/hr IV .Q7H58M [facility] Rx#:[id number] propofoL 1,000 mg In 208.200 175.42 76.424 Empty Bag 1 bag @ 5 MCG/ KG/MIN 2.514 mls/hr IV . Q24H [facility] Rx#:[id number] Blood Product 310 Rc As-1 Unit 310 [id number] Output: Drainage 20 40 450 Right Upper Abdomen 20 40 450 Urine 482 735 680 Other: Voiding Method Indwelling Catheter Indwelling Catheter Indwelling Catheter ABP, PAP, CO, CI - Last Documented Arterial Blood Pressure 125/42 - Exam GENERAL DESCRIPTION: An elderly female intubated on the vent RESPIRATORY SYSTEM: Unlabored breathing , decreased breath sounds at bases HEART: S1 S2 regular rate and rhythm , ABDOMEN: Soft , no tenderness EXTREMITIES: Bilateral lower extremity wounds are currently dressed no drainage on the dressing - Labs CBC & Chem 7: 10/18/21 13:30 10/18/21 14:58 Labs: Abnormal Lab Results - Last 24 Hours (Table) 10/16/21 10/17/21 10/17/21 Range/Units 16:23 17:46 23:32 WBC (3.8-10.6) k/uL RBC (3.80-5.40) m/uL Hgb (11.4-16.0) gm/dL Hct (34.0-46.0) % RDW (11.5-15.5) % Neutrophils # (1.3-7.7) k/uL Lymphocytes # (1.0-4.8) k/uL Basophils # (0-0.2) k/uL ABG O2 Saturation (94-97) % Chloride (98-107) mmol/L BUN (7-17) mg/dL Glucose (74-99) mg/dL POC Glucose (mg/dL) 160 H 152 H (75-99) mg/dL Calcium (8.4-10.2) mg/dL AST (14-36) U/L Total Protein (6.3-8.2) g/dL Albumin (3.5-5.0) g/dL Crossmatch See Detail 10/18/21 10/18/21 10/18/21 Range/Units 05:19 05:20 05:20 WBC 37.4 H (3.8-10.6) k/uL RBC 2.38 L (3.80-5.40) m/uL Hgb 6.8 L* D (11.4-16.0) gm/dL Hct 20.6 L (34.0-46.0) % RDW 16.5 H (11.5-15.5) % Neutrophils # 34.9 H (1.3-7.7) k/uL Lymphocytes # 0.9 L (1.0-4.8) k/uL Basophils # 0.3 H (0-0.2) k/uL ABG O2 Saturation (94-97) % Chloride 114 H (98-107) mmol/L BUN 19 H (7-17) mg/dL Glucose 151 H (74-99) mg/dL POC Glucose (mg/dL) 184 H (75-99) mg/dL Calcium 6.5 L (8.4-10.2) mg/dL AST 45 H (14-36) U/L Total Protein 3.4 L (6.3-8.2) g/dL Albumin 1.4 L (3.5-5.0) g/dL Crossmatch 10/18/21 10/18/21 Range/Units 05:34 11:16 WBC (3.8-10.6) k/uL RBC (3.80-5.40) m/uL Hgb (11.4-16.0) gm/dL Hct (34.0-46.0) % RDW (11.5-15.5) % Neutrophils # (1.3-7.7) k/uL Lymphocytes # (1.0-4.8) k/uL Basophils # (0-0.2) k/uL ABG O2 Saturation 98.5 H (94-97) % Chloride (98-107) mmol/L BUN (7-17) mg/dL Glucose (74-99) mg/dL POC Glucose (mg/dL) 158 H (75-99) mg/dL Calcium (8.4-10.2) mg/dL AST (14-36) U/L Total Protein (6.3-8.2) g/dL Albumin (3.5-5.0) g/dL Crossmatch Microbiology - Last 24 Hours (Table) 10/11/21 15:44 Blood Culture - Final Blood No Growth after 144 hours 10/11/21 15:44 Blood Culture - Final Blood No Growth after 144 hours 10/16/21 23:45 Gram Stain - Preliminary Sputum Sputum Culture - Preliminary Assessment and Plan (1) Cellulitis Current Visit: Yes Status: Acute Code(s): L03.90 - CELLULITIS, UNSPECIFIED SNOMED Code(s): 194547842 Plan: 1patient with bilateral lower extremity nonhealing wound and cellulitis seems to be more of a venous stasis ulcers with secondary cellulitis and likely from gram-positive skin pb less likely gram-negative infection in this patient has not seen a physician for 20 years less likelihood of a MRSA infection. 2 patient is status post surgical debridement and deep culture which are currently growing multiple pathogens including Pseudomonas strep 3patient did have acute GI bleed with evidence of perforated and bleeding duodenal ulcer requiring laparotomy, patient to continue with cefepime and Fl agyl and Eraxis and monitor clinical course closely at the bedside and multiple questions were answered Time with Patient: Less than 30
[2021-10-18] MEDS: 1: MVI, ADULT NO.4 WITH VIT K 10 ML, TRACE (CONC-1ML/DOSE) 1 ML, SODIUM ACETATE 30 MEQ, IV SCH ×14 (15:48→16:09)
[2021-10-18 18:18] LABS: Glucose,Whole Blood 176 mg/dL (75-99)
[2021-10-18 23:32] LABS: Magnesium 2.1 mg/dL (1.6-2.3); Potassium 2.9 mmol/L (3.5-5.1)
[2021-10-18 23:58] LABS: Glucose,Whole Blood 147 mg/dL (75-99)
[2021-10-19] MEDS: POTASSIUM CHLORIDE 20 MEQ in WATER FOR INJECTION 1 100ML.BAG IVPB SCH ×7 (00:27→21:43)
[2021-10-19] MEDS: NOREPINEPHRINE 8 MG in SODIUM CHLORIDE 0.9% 250 ML IV SCH (04:05)
[2021-10-19 05:39] LABS: Glucose,Whole Blood 113 mg/dL (75-99)
[2021-10-19] MEDS: LACTATED RINGERS 1,000 ML IV SCH ×2 (05:40→20:11)
[2021-10-19] MEDS: INSULIN ASPART (NovoLOG) 100 UNIT/ML VIAL SQ SCH ×3 (05:40→18:25)
[2021-10-19 06:12] LABS: ABG Base Excess 1.9 mmol/L; ABG HCO3 25 mmol/L (21-25); ABG Oxygen Saturation 98.1 % (94-97); ABG PCO2 33 mmHg (35-45); ABG PH 7.49 (7.35-7.45); ABG PO2 93 mmHg (83-108); ABG TCO2 26 mmol/L (19-24); Allen Test Performed? Yes
[2021-10-19] MEDS: HYDROmorphone 1 MG/ML 1 ML SYRINGE IVP PRN ×5 (06:19→21:41)
[2021-10-19] MEDS: 1: MVI, ADULT NO.4 WITH VIT K 10 ML, TRACE (CONC-1ML/DOSE) 1 ML, SODIUM ACETATE 30 MEQ, IV SCH ×7 (06:38)
--- NOTE | 2021-10-19 06:48 | XR ---
EXAMINATION TYPE: XR chest 1V portable DATE OF EXAM: 10/19/2021 COMPARISON: 10/18/2021 HISTORY: Tube placement TECHNIQUE: Single frontal view of the chest is obtained. FINDINGS: ET tube has been retracted and is now 2.9 cm above the emily. There is a left central kilo ous catheter tip of which is in the brachiocephalic vein. There is an NG tube stomach. The heart is moderately enlarged and there is moderate pulmonary vascular congestion. There is a smal l right pleural effusion. There is an opacity obscuring the left lung base likely a combination of pl eural effusion and possibly atelectasis. Overall no change compared to previous. IMPRESSION: ET tube now 2.9 cm above the emily. No change in the acute cardiopulmonary process most likely CHF.
[2021-10-19 07:14] LABS: Sodium 136 mmol/L (137-145)
[2021-10-19 07:17] LABS: AST 33 U/L (14-36); African American GFR (CKD) >90 (>60 ml/min/1.73 sqM); Albumin 1.4 g/dL (3.5-5.0); Alkaline Phosphatase 72 U/L (38-126); Anion Gap 1 mmol/L; Blood Urea Nitrogen 22 mg/dL (7-17); Carbon Dioxide 25 mmol/L (22-30); Chloride 110 mmol/L (98-107); Glucose 137 mg/dL (74-99); Non-African American GFR(CKD) 79 (>60 ml/min/1.73 sqM); Potassium 3.4 mmol/L (3.5-5.1); Total Bilirubin 0.6 mg/dL (0.2-1.3); Total Protein 3.4 g/dL (6.3-8.2)
[2021-10-19 07:18] LABS: ALT 16 U/L (4-34); Calcium 6.6 mg/dL (8.4-10.2); Phosphorus 1.3 mg/dL (2.5-4.5)
--- NOTE | 2021-10-19 07:18 | P.PN ---
Subjective Progress Note Date: 10/18/21 10/18/2021: Patient's son was present today. Patient is laying comfortably in the bed, intubated, sedated with propofol 30 g per program per minute. Also on a very low dose Levophed of 0.8 mg/kg. Per nursing report, when sedation holiday was performed for 45 minutes, she did open eyes, moved extremities, but did not follow commands. Patient's hemoglobin did drop down therefore required one PRBC. Patient has been started on Lasix. 10/17/2021: Patient was seen for a follow-up. Patient's son was present. Apparently patient developed an acute GI bleed yesterday. She was transferred to ICU. Patient underwent emergency EGD, which revealed large amount of fresh blood with clots noted in the stomach extending into the pylorus and the duodenum. 2 cm ulceration in the duodenal bulb with a small visible vessel, status post Endo clip placement. Large adherent clot noted in the pylorus extending into the duodenal bulb which could not be removed. Significant amount of bleeding noted in this area and most likely dealing with a large duodenal ulcer. Subsequently patient underwent exploratory laparotomy by Dr. Jones with repair of perforated duodenal ulcer and control of bleeding, pyloroplasty. Therefore patient could not be seen yesterday. Today patient is on propofol 30 mcg/kg/m. She also has received Dilaudid 2 mg IV. Per nursing report, she does respond to pain equally in the upper and lower limbs. Patient is in a lot of pain for which she was given Dilaudid. She did not follow commands however. At present exam was limited because of patient being sedated. 10/15/2021: Patient is a 66-year-old female admitted to the hospital for leg wounds. She has bilateral leg wounds, that have been weeping. Lately she has been falling and bumped her head. Patient underwent debridement of the wounds yesterday. Patient's was also present, who states that patient lives with her . She does not have any deficits otherwise. She walks by herself, does not use any assistive device. She has been complaining of a lot of pain in her legs. Because of her falls, she underwent a routine computed tomography scan of the head, which incidentally revealed subacute right parietal infarct. Patient also has toxic metabolic encephalopathy from UTI and perhaps pain medication. Patient was not taking any antiplatelet medication at home. CT head revealed right middle cerebral artery distribution subacute infarct, involving the right parietal temporal region. Patchy white matter hypodensity consistent with chronic small vessel ischemia. I personally reviewed computed tomography scan of the head and agree with the findings. Patient has smoked half pack per day for 40-50 years. This lately she has stopped. She has been diagnosed with diabetes while in this hospital, as her hemoglobin A1c is 8. No previous history of diabetes. Objective - Vital Signs Vital signs: Vital Signs Temp 98.5 F 10/19/21 04:00 Pulse 69 10/19/21 06:00 Resp 14 10/19/21 06:00 BP 107/63 10/19/21 06:00 Pulse Ox 100 10/19/21 06:00 Intake & Output 10/18/21 10/19/21 10/19/21 18:59 06:59 18:59 Intake Total 2193.729 3280.007 Output Total 3230 1805 Balance -8644.548 7197.007 Weight 100.2 kg 99.79 kg Intake: IV 1535 1980 Lactated Ringers 1,000 ml 1100 1200 @ 100 mls/hr IV .Q10H [facility] Rx#:[id number] Mvi, Adult No.4 with Vit 240 K 10 ml Trace (Conc-1Ml/ Dose) 1 ml Sodium Acetate 30 meq Potassium Acetate 20 meq Magnesium Sulfate gm 1 gm Calcium Gluconate 1 gm In Amino Acid 4.25%-D10w 1,000 ml @ 30 mls/hr IV .Q24H [facility] Rx#:[id number] Mvi, Adult No.4 with Vit 195 780 K 10 ml Trace (Conc-1Ml/ Dose) 1 ml Sodium Acetate 30 meq Potassium Acetate 20 meq Magnesium Sulfate gm 1 gm Calcium Gluconate 1 gm In Amino Acid 4.25%-D10w 1,000 ml @ 65 mls/hr IV .BY DURATION [facility] Rx#: [id number] Intake, IV Titration 418.875 7751.007 Amount Mvi, Adult No.4 with Vit 964.167 K 10 ml Trace (Conc-1Ml/ Dose) 1 ml Sodium Acetate 30 meq Potassium Acetate 20 meq Magnesium Sulfate gm 1 gm Calcium Gluconate 1 gm In Amino Acid 4.25%-D10w 1,000 ml @ 65 mls/hr IV .BY DURATION [facility] Rx#: [id number] Norepinephrine 8 mg In 201.662 149.61 Sodium Chloride 0.9% 250 ml @ 0.2 MCG/KG/MIN 32. 431 mls/hr IV .Q7H58M [facility] Rx#:[id number] propofoL 1,000 mg In 147.067 186.23 Empty Bag 1 bag @ 5 MCG/ KG/MIN 2.514 mls/hr IV . Q24H [facility] Rx#:[id number] Blood Product 310 Rc As-1 Unit 310 [id number] Output: Drainage 600 175 Right Upper Abdomen 600 175 Urine 2630 1630 Other: Voiding Method Indwelling Catheter Indwelling Catheter ABP, PAP, CO, CI - Last Documented Arterial Blood Pressure 106/91 - Exam Patient is intubated, sedated. Pupils are equal, round and reacting. Detail testing deferred, as patient is sedated. - Labs CBC & Chem 7: 10/18/21 13:30 10/18/21 23:05 Labs: Abnormal Lab Results - Last 24 Hours (Table) 10/16/21 10/18/21 10/18/21 Range/Units 16:23 11:16 13:30 WBC 32.3 H (3.8-10.6) k/uL RBC 2.67 L (3.80-5.40) m/uL Hgb 8.1 L (11.4-16.0) gm/dL Hct 24.0 L (34.0-46.0) % RDW 17.1 H (11.5-15.5) % ABG pH (7.35-7.45) ABG pCO2 (35-45) mmHg ABG Total CO2 (19-24) mmol/L ABG O2 Saturation (94-97) % Sodium (137-145) mmol/L Potassium (3.5-5.1) mmol/L Chloride (98-107) mmol/L BUN (7-17) mg/dL Glucose (74-99) mg/dL POC Glucose (mg/dL) 158 H (75-99) mg/dL Calcium (8.4-10.2) mg/dL Crossmatch See Detail 10/18/21 10/18/21 10/18/21 Range/Units 14:58 18:15 23:05 WBC (3.8-10.6) k/uL RBC (3.80-5.40) m/uL Hgb (11.4-16.0) gm/dL Hct (34.0-46.0) % RDW (11.5-15.5) % ABG pH (7.35-7.45) ABG pCO2 (35-45) mmHg ABG Total CO2 (19-24) mmol/L ABG O2 Saturation (94-97) % Sodium 136 L (137-145) mmol/L Potassium 3.2 L 2.9 L (3.5-5.1) mmol/L Chloride 113 H (98-107) mmol/L BUN 20 H (7-17) mg/dL Glucose 145 H (74-99) mg/dL POC Glucose (mg/dL) 176 H (75-99) mg/dL Calcium 6.5 L (8.4-10.2) mg/dL Crossmatch 10/18/21 10/19/21 10/19/21 Range/Units 23:55 05:37 06:06 WBC (3.8-10.6) k/uL RBC (3.80-5.40) m/uL Hgb (11.4-16.0) gm/dL Hct (34.0-46.0) % RDW (11.5-15.5) % ABG pH 7.49 H (7.35-7.45) ABG pCO2 33 L (35-45) mmHg ABG Total CO2 26 H (19-24) mmol/L ABG O2 Saturation 98.1 H (94-97) % Sodium (137-145) mmol/L Potassium (3.5-5.1) mmol/L Chloride (98-107) mmol/L BUN (7-17) mg/dL Glucose (74-99) mg/dL POC Glucose (mg/dL) 147 H 113 H (75-99) mg/dL Calcium (8.4-10.2) mg/dL Crossmatch Microbiology - Last 24 Hours (Table) 10/16/21 23:45 Gram Stain - Preliminary Sputum Sputum Culture - Preliminary Darcy albicans Assessment and Plan Assessment: 1. Large, subacute, right cerebral hemispheric infarct, involving the right parietal temporal region-patient does have some left-sided visual field deficits and left rai-sensory neglect. 2. Toxic encephalopathy/delirium secondary to infection 3. Acute UTI. Urine cultures growing E. coli. 4. New onset diabetes 5. Tobacco use 6. Weeping ulcers of the lower extremities, status post debridement 7. Status post exploratory laparotomy with repair of perforated duodenal ulcer, control of bleeding and pyloroplasty 10/16/2021. Plan: 1. Patient is critically sick at this time. Antiplatelet medications held because of GI bleed. GI and surgical input appreciated. Patient on Protonix 40 mg IV twice a day. Continue Lipitor 40 mg daily. 2. Patient at present is intubated, sedated, therefore examination is limited. Per nursing report, she was moving all 4 extremities equally when the sedation was decreased. 3. 2-D echocardiogram revealed inferoseptal hypokinesis or aortic sclerosis with mild aortic stenosis and mild mitral and mild to moderate tricuspid regurgitation. EF is 40-45%. Grade 1 diastolic dysfunction. Mid to basal inferoseptal is hypokinetic. 4. Patient apparently has been declining MRA of the brain that was recommended on the last visit. 5. Carotid Doppler revealed no significant common or internal carotid artery stenosis. Antegrade flow in the left vertebral artery. Unable to identify flow on the right side 6. PT, OT and speech therapy evaluations. Lipid panel cholesterol 159, LDL 101, HDL 28.3 and triglycerides 146, continue Lipitor 40 mg daily. Patient's hemoglobin A1c 8.0. Recommend optimize control of diabetes to target A1c <7.0. TSH slightly low 0.222 with normal free T4 1 0.63. IM to address thyroid functions. 7. UA shows large amount of leukocyte Estrace. Urine growing E. coli. Patient currently on cefepime, metronidazole and Eraxis. ID following. 8. Discussed with patient's son and nursing staff in detail. We will follow periodically.
[2021-10-19] MEDS ORDERED: Phosphorus Replacement Protoco 1 EACH MISC MISCELLANE PRN (07:30)
[2021-10-19 07:37] LABS: Anisocytosis Slight; Basophils # (A) 0.1 k/uL (0-0.2); Basophils % (A) 0 %; Eosinophils # (A) 0.1 k/uL (0-0.7); Eosinophils % (A) 0 %; HCT 22.6 % (34.0-46.0); HGB 7.6 gm/dL (11.4-16.0); Lymphocytes # (A) 0.9 k/uL (1.0-4.8); Lymphocytes % (A) 3 %; MCH 30.1 pg (25.0-35.0); MCHC 33.4 g/dL (31.0-37.0); MCV 90.1 fL (80.0-100.0); Monocytes # (A) 0.7 k/uL (0-1.0); Monocytes % (A) 2 %; Neutrophils # (A) 25.2 k/uL (1.3-7.7); Neutrophils % (A) 92 %; Platelet Count 147 k/uL (150-450); RBC 2.51 m/uL (3.80-5.40); RDW 17.8 % (11.5-15.5); WBC 27.3 k/uL (3.8-10.6)
[2021-10-19] MEDS: GABAPENTIN 100 MG CAP PO SCH ×3 (08:10→19:24)
[2021-10-19] MEDS: ATORVASTATIN 40 MG TAB PO SCH (08:10)
[2021-10-19] MEDS: metroNIDAZOLE-NS PMX 500 MG in SALINE 1 100ML.BAG IVPB SCH ×2 (08:43→16:45)
[2021-10-19] MEDS: ANIDULAFUNGIN 100 MG in SODIUM CHLORIDE 0.9% 100 ML IVPB SCH (08:46)
[2021-10-19] MEDS: CEFEPIME 2 GM in SODIUM CHLORIDE 0.9% 100 ML IVPB SCH ×2 (08:47→20:02)
[2021-10-19] MEDS: FUROSEMIDE 10 MG/ML 2 ML VIAL IV SCH ×2 (08:50→20:02)
[2021-10-19] MEDS: PANTOPRAZOLE 40 MG/10 ML VIAL IVP SCH ×2 (08:50→20:02)
[2021-10-19] MEDS: CHLORHEXIDINE GLUCONATE 15 ML CUP MUCOUS MEM SCH ×2 (08:50→20:01)
[2021-10-19] MEDS: ENOXAPARIN 40 MG/0.4 ML SYRINGE SQ SCH (08:50)
[2021-10-19] MEDS: POTASSIUM PHOSPHATE 10 MMOL in SODIUM CHLORIDE 0.9% 100 ML IV SCH ×3 (08:50→13:50)
--- NOTE | 2021-10-19 09:30 | P.PN ---
Subjective Progress Note Date: 10/19/21 Principal diagnosis: Duodenal ulcer Patient remains on the ventilator. Levophed dose is the same as yesterday. Hemoglobin went up to 8.1 after 1 unit and today is 7.6. No bloody stools. White blood cell count remains elevated. Objective - Vital Signs Vital signs: Vital Signs Temp 98.5 F 10/19/21 04:00 Pulse 68 10/19/21 07:15 Resp 14 10/19/21 07:15 BP 101/59 10/19/21 07:15 Pulse Ox 100 10/19/21 07:15 Intake & Output 10/18/21 10/19/21 10/19/21 18:59 06:59 18:59 Intake Total 2193.729 3280.007 165 Output Total 3230 1805 200 Balance -0471.654 1649.007 -35 Weight 100.2 kg 99.79 kg Intake: IV 1535 1980 165 Lactated Ringers 1,000 ml 1100 1200 100 @ 100 mls/hr IV .Q10H [facility] Rx#:[id number] Mvi, Adult No.4 with Vit 240 K 10 ml Trace (Conc-1Ml/ Dose) 1 ml Sodium Acetate 30 meq Potassium Acetate 20 meq Magnesium Sulfate gm 1 gm Calcium Gluconate 1 gm In Amino Acid 4.25%-D10w 1,000 ml @ 30 mls/hr IV .Q24H [facility] Rx#:[id number] Mvi, Adult No.4 with Vit 195 780 65 K 10 ml Trace (Conc-1Ml/ Dose) 1 ml Sodium Acetate 30 meq Potassium Acetate 20 meq Magnesium Sulfate gm 1 gm Calcium Gluconate 1 gm In Amino Acid 4.25%-D10w 1,000 ml @ 65 mls/hr IV .BY DURATION [facility] Rx#: [id number] Intake, IV Titration 891.464 4373.007 Amount Mvi, Adult No.4 with Vit 964.167 K 10 ml Trace (Conc-1Ml/ Dose) 1 ml Sodium Acetate 30 meq Potassium Acetate 20 meq Magnesium Sulfate gm 1 gm Calcium Gluconate 1 gm In Amino Acid 4.25%-D10w 1,000 ml @ 65 mls/hr IV .BY DURATION [facility] Rx#: [id number] Norepinephrine 8 mg In 201.662 149.61 Sodium Chloride 0.9% 250 ml @ 0.2 MCG/KG/MIN 32. 431 mls/hr IV .Q7H58M [facility] Rx#:[id number] propofoL 1,000 mg In 147.067 186.23 Empty Bag 1 bag @ 5 MCG/ KG/MIN 2.514 mls/hr IV . Q24H [facility] Rx#:[id number] Blood Product 310 Rc As-1 Unit 310 [id number] Output: Drainage 600 175 Right Upper Abdomen 600 175 Urine 2630 1630 200 Other: Voiding Method Indwelling Catheter Indwelling Catheter ABP, PAP, CO, CI - Last Documented Arterial Blood Pressure 106/91 - Exam Abdomen: Soft, nondistended, dressing clean and dry, MARIA LUISA serous - Labs CBC & Chem 7: 10/19/21 06:50 10/19/21 06:50 Labs: Abnormal Lab Results - Last 24 Hours (Table) 10/16/21 10/18/21 10/18/21 Range/Units 16:23 11:16 13:30 WBC 32.3 H (3.8-10.6) k/uL RBC 2.67 L (3.80-5.40) m/uL Hgb 8.1 L (11.4-16.0) gm/dL Hct 24.0 L (34.0-46.0) % RDW 17.1 H (11.5-15.5) % Plt Count (150-450) k/uL Neutrophils # (1.3-7.7) k/uL Lymphocytes # (1.0-4.8) k/uL ABG pH (7.35-7.45) ABG pCO2 (35-45) mmHg ABG Total CO2 (19-24) mmol/L ABG O2 Saturation (94-97) % Sodium (137-145) mmol/L Potassium (3.5-5.1) mmol/L Chloride (98-107) mmol/L BUN (7-17) mg/dL Glucose (74-99) mg/dL POC Glucose (mg/dL) 158 H (75-99) mg/dL Calcium (8.4-10.2) mg/dL Phosphorus (2.5-4.5) mg/dL Total Protein (6.3-8.2) g/dL Albumin (3.5-5.0) g/dL Crossmatch See Detail 10/18/21 10/18/21 10/18/21 Range/Units 14:58 18:15 23:05 WBC (3.8-10.6) k/uL RBC (3.80-5.40) m/uL Hgb (11.4-16.0) gm/dL Hct (34.0-46.0) % RDW (11.5-15.5) % Plt Count (150-450) k/uL Neutrophils # (1.3-7.7) k/uL Lymphocytes # (1.0-4.8) k/uL ABG pH (7.35-7.45) ABG pCO2 (35-45) mmHg ABG Total CO2 (19-24) mmol/L ABG O2 Saturation (94-97) % Sodium 136 L (137-145) mmol/L Potassium 3.2 L 2.9 L (3.5-5.1) mmol/L Chloride 113 H (98-107) mmol/L BUN 20 H (7-17) mg/dL Glucose 145 H (74-99) mg/dL POC Glucose (mg/dL) 176 H (75-99) mg/dL Calcium 6.5 L (8.4-10.2) mg/dL Phosphorus (2.5-4.5) mg/dL Total Protein (6.3-8.2) g/dL Albumin (3.5-5.0) g/dL Crossmatch 10/18/21 10/19/21 10/19/21 Range/Units 23:55 05:37 06:06 WBC (3.8-10.6) k/uL RBC (3.80-5.40) m/uL Hgb (11.4-16.0) gm/dL Hct (34.0-46.0) % RDW (11.5-15.5) % Plt Count (150-450) k/uL Neutrophils # (1.3-7.7) k/uL Lymphocytes # (1.0-4.8) k/uL ABG pH 7.49 H (7.35-7.45) ABG pCO2 33 L (35-45) mmHg ABG Total CO2 26 H (19-24) mmol/L ABG O2 Saturation 98.1 H (94-97) % Sodium (137-145) mmol/L Potassium (3.5-5.1) mmol/L Chloride (98-107) mmol/L BUN (7-17) mg/dL Glucose (74-99) mg/dL POC Glucose (mg/dL) 147 H 113 H (75-99) mg/dL Calcium (8.4-10.2) mg/dL Phosphorus (2.5-4.5) mg/dL Total Protein (6.3-8.2) g/dL Albumin (3.5-5.0) g/dL Crossmatch 10/19/21 10/19/21 Range/Units 06:50 06:50 WBC 27.3 H (3.8-10.6) k/uL RBC 2.51 L (3.80-5.40) m/uL Hgb 7.6 L (11.4-16.0) gm/dL Hct 22.6 L (34.0-46.0) % RDW 17.8 H (11.5-15.5) % Plt Count 147 L (150-450) k/uL Neutrophils # 25.2 H (1.3-7.7) k/uL Lymphocytes # 0.9 L (1.0-4.8) k/uL ABG pH (7.35-7.45) ABG pCO2 (35-45) mmHg ABG Total CO2 (19-24) mmol/L ABG O2 Saturation (94-97) % Sodium 136 L (137-145) mmol/L Potassium 3.4 L (3.5-5.1) mmol/L Chloride 110 H (98-107) mmol/L BUN 22 H (7-17) mg/dL Glucose 137 H (74-99) mg/dL POC Glucose (mg/dL) (75-99) mg/dL Calcium 6.6 L (8.4-10.2) mg/dL Phosphorus 1.3 L (2.5-4.5) mg/dL Total Protein 3.4 L (6.3-8.2) g/dL Albumin 1.4 L (3.5-5.0) g/dL Crossmatch Microbiology - Last 24 Hours (Table) 10/16/21 23:45 Gram Stain - Preliminary Sputum Sputum Culture - Preliminary Darcy albicans Assessment and Plan (1) Duodenal ulcer Narrative/Plan: Patient stable at this time. Continue weaning pressors as tolerated. Continue ventilatory weaning poor pulmonary. Continue TPN nasogastric tube to suction. We'll follow. Current Visit: Yes Status: Acute Code(s): K26.9 - DUODENAL ULCER, UNSP ACUTE OR CHRONIC, W/O HEMOR OR PERF SNOMED Code(s): 64653109
[2021-10-19 12:14] LABS: Glucose,Whole Blood 165 mg/dL (75-99)
--- NOTE | 2021-10-19 12:59 | P.PN ---
Subjective Progress Note Date: 10/19/21 Principal diagnosis: Massive upper GI bleeding secondary to duodenal ulcer This is a 66-year-old female with history of multiple medical problems, patient was admitted initially on 10/11/2021 with mostly bilateral lower extremities cellulitis. Patient was seen by many consultants including internal medicine, neurology, psychiatry, vascular surgery, cardiology, infectious disease, because in addition to her cellulitis of lower extremities, patient had cardiomyopathy with LV dysfunction, she also had subacute CVA, peripheral vessel occlusive disease, and many consultants were addressing her medical issues. Patient was in the ICU yesterday as an overflow, however she had a sudden episode of upper GI bleeding requiring multiple blood transfusions including 4 units of packed RBCs, 2 units of fresh was a plasma, 1 unit of platelets, patient was on aspirin and Plavix. These were placed on hold, patient was seen by gastroenterology, underwent EGD, and she was found to have a bleeding duodenal ulcer. Surgery was consulted on the patient and the patient required surgical intervention yesterday. Patient underwent exploratory laparotomy and repair of perforated to widen ulcer and control of bleeding/pyloroplasty. Postoperatively patient was in the ICU on mechanical ventilation, and I was asked to see her by Dr. grijalva on consultation. She is now on assist control rate of 16 and the volume of 400 FiO2 50% and PEEP of 5 ABG showed a pO2 of 169 pCO2 of 36 pH of 7.38, hence I cut down her FiO2 to 40%. Her hemoglobin this morning is 9.2. Patient is requiring norepinephrine at 0.22 mcg/kg/m, she is on antibiotics, she is also on propofol at 50 mcg/kg/m, she was on bicarb overnight and today after reviewing her labs I discontinued her bicarb drip. I also repositioned her central line which was entering the left internal jugular and ending in the right subclavian on the other side. Patient had some bloody bowel movement today, and she continues to have some coffee ground material in the nasogastric tube but did not require any blood transfusions since yesterday. Patient is noted to have a WBC count of 48.6 hemoglobin is 9.2. Basic metabolic profile is normal, BUN is 19 and creatinine 1.0, blood sugar is 155 this morning. Liver profile is relatively unremarkable. Patient was reevaluated today on 10/18/2021, remains intubated and mechanically ventilated. She is on assist control rate of 16, while at 400 FiO2 40% PEEP of 5. ABG showed a pO2 of 107 pCO2 39 pH of 7.3. Patient remains on propofol at 55 mcg/kg/m she is also on TPN and she still requiring norepinephrine 0.16 mcg/kg/m. Hemoglobin dropped yesterday, and now she is receiving another unit of packed RBCs. Hoping that her blood pressure would improve after the transfusion, and we'll continue to taper down the norepinephrine. No rectal bleeding, patient does have coffee ground material in the nasogastric tube output. Patient is sedated, however when the propofol was placed on hold, she became extremely agitated, and I recommended that we continue sedating the patient, and she is not quite ready for weaning and extubation at this point yet. Not to mention the patient is sedated requiring norepinephrine for hemodynamic support. We'll continue to try on a daily basis weaning possible off mechanical ventilation. In the meantime we'll continue TPN, continue nutritional support, continue treatment for her ulcer, he is on Protonix, and I plan to start the patient on Protonix 40 mg subcu daily, cleared by surgery for subcu heparin. Chest x-ray showed mild interstitial changes today. Possibly mild interstitial edema. WBC count is down to 37.4 hemoglobin is 6.8 today. Electrolytes are unremarkable except for slightly low potassium of 3.5. ABG showed a pO2 of 107 pCO2 of 39 pH of 7.38. Patient is on 50% FiO2. Cut down to 40% Reevaluated today on 10/19/2021, patient remains intubated, mechanically ventilated, remains norepinephrine dependent, blood pressure is marginal, she by however the dose of norepinephrine is down to 0.08 mcg/kg/m. Her ventilator settings are assist control rate of 1612 volume 400 FiO2 40% and PEEP of 5. ABG showed a pO2 of 93 pCO2 33 pH of 7.49, hence no changes were made in the ventilator settings. Her leukocytosis is improving. Patient has excellent urine output, remains on Lasix intermittently as she seems to be quite swollen and edematous, patient received significant amount of fluid since admission. She is on Lasix at 20 mg every 12 hours. Patient is receiving TPN at 65 mL per hour. She is on propofol at 50 mcg/kg/m, norepinephrine 0.08 and she is on antibiotics in the form of cefepime and Flagyl and Eraxis. Chest x-ray showed mild interstitial changes. WBC count is 27.3 hemoglobin is 7.6. Basic metabolic profile is unremarkable, potassium is 3.4 Objective - Vital Signs Vital signs: Vital Signs Temp 98.0 F 10/19/21 08:00 Pulse 68 10/19/21 11:00 Resp 14 10/19/21 11:00 BP 132/66 10/19/21 11:00 Pulse Ox 100 10/19/21 11:00 Intake & Output 10/18/21 10/19/21 10/19/21 18:59 06:59 18:59 Intake Total 2193.729 3280.007 925.000 Output Total 3230 1805 1300 Balance -7839.206 8904.007 -375.000 Weight 100.2 kg 99.79 kg Intake: IV 1535 1980 825 Lactated Ringers 1,000 ml 1100 1200 500 @ 100 mls/hr IV .Q10H [facility] Rx#:[id number] Mvi, Adult No.4 with Vit 240 K 10 ml Trace (Conc-1Ml/ Dose) 1 ml Sodium Acetate 30 meq Potassium Acetate 20 meq Magnesium Sulfate gm 1 gm Calcium Gluconate 1 gm In Amino Acid 4.25%-D10w 1,000 ml @ 30 mls/hr IV .Q24H [facility] Rx#:[id number] Mvi, Adult No.4 with Vit 195 780 325 K 10 ml Trace (Conc-1Ml/ Dose) 1 ml Sodium Acetate 30 meq Potassium Acetate 20 meq Magnesium Sulfate gm 1 gm Calcium Gluconate 1 gm In Amino Acid 4.25%-D10w 1,000 ml @ 65 mls/hr IV .BY DURATION [facility] Rx#: [id number] Intake, IV Titration 868.924 9216.007 100.000 Amount Mvi, Adult No.4 with Vit 964.167 K 10 ml Trace (Conc-1Ml/ Dose) 1 ml Sodium Acetate 30 meq Potassium Acetate 20 meq Magnesium Sulfate gm 1 gm Calcium Gluconate 1 gm In Amino Acid 4.25%-D10w 1,000 ml @ 65 mls/hr IV .BY DURATION [facility] Rx#: [id number] Norepinephrine 8 mg In 201.662 149.61 Sodium Chloride 0.9% 250 ml @ 0.2 MCG/KG/MIN 32. 431 mls/hr IV .Q7H58M [facility] Rx#:[id number] propofoL 1,000 mg In 147.067 186.23 100.000 Empty Bag 1 bag @ 5 MCG/ KG/MIN 2.514 mls/hr IV . Q24H [facility] Rx#:[id number] Blood Product 310 Rc As-1 Unit 310 [id number] Output: Drainage 600 175 Right Upper Abdomen 600 175 Urine 2630 1630 1300 Other: Voiding Method Indwelling Catheter Indwelling Catheter Indwelling Catheter ABP, PAP, CO, CI - Last Documented Arterial Blood Pressure 100/43 - Exam Physical Exam: Revealed a 66-year-old female obese, intubated and mechanically ventilated, sedated, not in distress. Head: Atraumatic normocephalic. Endotracheal tube and nasogastric tube are intact. HEENT:[Neck is supple.] [No neck masses.] [No thyromegaly.] [No JVD.] Left IJ triple-lumen catheter is noted Chest: [Symmetrical chest expansion, fine crackles at the bases no rhonchi and no wheezes..] Cardiac Exam: [Normal S1 and S2, no S3 gallop, no murmur.] Abdomen: Postsurgical, nontender, abdominal binder is noted. Negative bowel sounds. Extremities: Both lower extremities are wrapped with Hans wraps. Neurological Exam: Could not assess, patient is sedated on propofol. Psychiatric: Could not assess. Patient is sedated, on propofol. Skin: No rashes. Except as chronic cellulitis in the lower extremities and they are covered with Hans wrap - Labs CBC & Chem 7: 10/19/21 06:50 10/19/21 06:50 Labs: Abnormal Lab Results - Last 24 Hours (Table) 10/18/21 10/18/21 10/18/21 Range/Units 13:30 14:58 18:15 WBC 32.3 H (3.8-10.6) k/uL RBC 2.67 L (3.80-5.40) m/uL Hgb 8.1 L (11.4-16.0) gm/dL Hct 24.0 L (34.0-46.0) % RDW 17.1 H (11.5-15.5) % Plt Count (150-450) k/uL Neutrophils # (1.3-7.7) k/uL Lymphocytes # (1.0-4.8) k/uL ABG pH (7.35-7.45) ABG pCO2 (35-45) mmHg ABG Total CO2 (19-24) mmol/L ABG O2 Saturation (94-97) % Sodium 136 L (137-145) mmol/L Potassium 3.2 L (3.5-5.1) mmol/L Chloride 113 H (98-107) mmol/L BUN 20 H (7-17) mg/dL Glucose 145 H (74-99) mg/dL POC Glucose (mg/dL) 176 H (75-99) mg/dL Calcium 6.5 L (8.4-10.2) mg/dL Phosphorus (2.5-4.5) mg/dL Total Protein (6.3-8.2) g/dL Albumin (3.5-5.0) g/dL 10/18/21 10/18/21 10/19/21 Range/Units 23:05 23:55 05:37 WBC (3.8-10.6) k/uL RBC (3.80-5.40) m/uL Hgb (11.4-16.0) gm/dL Hct (34.0-46.0) % RDW (11.5-15.5) % Plt Count (150-450) k/uL Neutrophils # (1.3-7.7) k/uL Lymphocytes # (1.0-4.8) k/uL ABG pH (7.35-7.45) ABG pCO2 (35-45) mmHg ABG Total CO2 (19-24) mmol/L ABG O2 Saturation (94-97) % Sodium (137-145) mmol/L Potassium 2.9 L (3.5-5.1) mmol/L Chloride (98-107) mmol/L BUN (7-17) mg/dL Glucose (74-99) mg/dL POC Glucose (mg/dL) 147 H 113 H (75-99) mg/dL Calcium (8.4-10.2) mg/dL Phosphorus (2.5-4.5) mg/dL Total Protein (6.3-8.2) g/dL Albumin (3.5-5.0) g/dL 10/19/21 10/19/21 10/19/21 Range/Units 06:06 06:50 06:50 WBC 27.3 H (3.8-10.6) k/uL RBC 2.51 L (3.80-5.40) m/uL Hgb 7.6 L (11.4-16.0) gm/dL Hct 22.6 L (34.0-46.0) % RDW 17.8 H (11.5-15.5) % Plt Count 147 L (150-450) k/uL Neutrophils # 25.2 H (1.3-7.7) k/uL Lymphocytes # 0.9 L (1.0-4.8) k/uL ABG pH 7.49 H (7.35-7.45) ABG pCO2 33 L (35-45) mmHg ABG Total CO2 26 H (19-24) mmol/L ABG O2 Saturation 98.1 H (94-97) % Sodium 136 L (137-145) mmol/L Potassium 3.4 L (3.5-5.1) mmol/L Chloride 110 H (98-107) mmol/L BUN 22 H (7-17) mg/dL Glucose 137 H (74-99) mg/dL POC Glucose (mg/dL) (75-99) mg/dL Calcium 6.6 L (8.4-10.2) mg/dL Phosphorus 1.3 L (2.5-4.5) mg/dL Total Protein 3.4 L (6.3-8.2) g/dL Albumin 1.4 L (3.5-5.0) g/dL 10/19/21 Range/Units 12:13 WBC (3.8-10.6) k/uL RBC (3.80-5.40) m/uL Hgb (11.4-16.0) gm/dL Hct (34.0-46.0) % RDW (11.5-15.5) % Plt Count (150-450) k/uL Neutrophils # (1.3-7.7) k/uL Lymphocytes # (1.0-4.8) k/uL ABG pH (7.35-7.45) ABG pCO2 (35-45) mmHg ABG Total CO2 (19-24) mmol/L ABG O2 Saturation (94-97) % Sodium (137-145) mmol/L Potassium (3.5-5.1) mmol/L Chloride (98-107) mmol/L BUN (7-17) mg/dL Glucose (74-99) mg/dL POC Glucose (mg/dL) 165 H (75-99) mg/dL Calcium (8.4-10.2) mg/dL Phosphorus (2.5-4.5) mg/dL Total Protein (6.3-8.2) g/dL Albumin (3.5-5.0) g/dL Microbiology - Last 24 Hours (Table) 10/16/21 23:45 Gram Stain - Final Sputum Sputum Culture - Final Darcy albicans Assessment and Plan Assessment: Impression: Postoperative hypoxic respiratory failure requiring mechanical ventilation and t he patient will remain mechanically ventilated mostly because of her hemodynamic instability, and massive GI bleeding secondary to bleeding/perforated duodenal ulcer this is expected considering the patient multiple medical problems and she remains on norepinephrine and the patient is status post multiple blood products transfusion patient is now postoperative day #3 patient's dose of norepinephrine is down to 0.08, it was 0.16 yesterday micrograms per kilo per minute Massive upper GI bleeding secondary to bleeding duodenal ulcer, presently under control. Chronic cellulitis of lower extremities Acute urinary tract infection on presentation Type 2 diabetes History of subacute CVA Toxic/metabolic encephalopathy Sepsis, and possible septic shock. Hypovolemic shock is not entirely ruled out. History of cardiomyopathy and LV dysfunction. Recommendation: Continue ventilatory support, patient is not quite ready for weaning Continue gentle diuresis, patient is known to have LV dysfunction. Continue hemodynamic support, norepinephrine will be titrated accordingly maintaining a mean arterial pressure of 65. Continue GI prophylaxis. Patient is on Protonix. Continue to monitor CBC daily. No need for blood transfusion today. Continue antibiotics as per infectious disease on the case. Continue Eraxis. Continue Flagyl. Continue cefepime Continue Lovenox for DVT prophylaxis. Continue TPN. Monitor daily labs and ABG. Continue to hold the Plavix and aspirin. Daily interruption of sedation starting tomorrow. And assessment for weaning. Arterial line was placed today and established since the previous arterial line was nonfunctional We'll continue to follow while in the ICU. Critical care time is over 30 minutes, not including the time spent on procedures Time with Patient: Greater than 30
--- NOTE | 2021-10-19 13:03 | P.PN ---
Subjective Interval history: This is a 66-year-old female with history of multiple medical problems, patient was admitted initially on 10/11/2021 with mostly bilateral lower extremities cellulitis. Patient was seen by many consultants including internal medicine, neurology, psychiatry, vascular surgery, cardiology, infectious disease, because in addition to her cellulitis of lower extremities, patient had cardiomyopathy with LV dysfunction, she also had subacute CVA, peripheral vessel occlusive disease, and many consultants were addressing her medical issues. Patient was in the ICU yesterday as an overflow, however she had a sudden episode of upper GI bleeding requiring multiple blood transfusions including 4 units of packed RBCs, 2 units of fresh was a plasma, 1 unit of platelets, patient was on aspirin and Plavix. These were placed on hold, patient was seen by gastroenterology, underwent EGD, and she was found to have a bleeding duodenal ulcer. Surgery was consulted on the patient and the patient required surgical intervention yesterday. Patient underwent exploratory laparotomy and repair of perforated to widen ulcer and control of bleeding/pyloroplasty. Postoperatively patient was in the ICU on mechanical ventilation, and I was asked to see her by Dr. grijalva on consultation. She is now on assist control rate of 16 and the volume of 400 FiO2 50% and PEEP of 5 ABG showed a pO2 of 169 pCO2 of 36 pH of 7.38, hence I cut down her FiO2 to 40%. Her hemoglobin this morning is 9.2. Patient is requiring norepinephrine at 0.22 mcg/kg/m, she is on antibiotics, she is also on propofol at 50 mcg/kg/m, she was on bicarb overnight and today after reviewing her labs I discontinued her bicarb drip. I also repositioned her central line which was entering the left internal jugular and ending in the right subclavian on the other side. Patient had some bloody bowel movement today, and she continues to have some coffee ground material in the nasogastric tube but did not require any blood transfusions since yesterday. Patient is noted to have a WBC count of 48.6 hemoglobin is 9.2. Basic metabolic profile is normal, BUN is 19 and creatinine 1.0, blood sugar is 155 this morning. Liver profile is relatively unremarkable Patient was seen and examined in ICU. She still sedated and intubated. She remains on Levophed drip Physical examination: Head: Atraumatic normocephalic. Endotracheal tube and nasogastric tube are intact. HEENT:[Neck is supple.] [No neck masses.] [No thyromegaly.] [No JVD.] Left IJ triple-lumen catheter is noted this was placed by anesthesia yesterday. Chest: [Symmetrical chest expansion, fine crackles at the bases no rhonchi and no wheezes..] Cardiac Exam: [Normal S1 and S2, no S3 gallop, no murmur.] Abdomen: Postsurgical, nontender, abdominal binder is noted. Negative bowel sounds. Extremities: Both lower extremities are wrapped with Hans wraps. However there is obviously some oozing noted in both lower extremities left more so than right. To be addressed later today by vascular surgery. Neurological Exam: Could not assess, patient is sedated. Assessment and plan: #Postoperative hypoxic respiratory failure -requiring mechanical ventilation and the patient will remain mechanically ventilated mostly because of her hemodynamic instability, and massive GI bleeding secondary to bleeding/perforated duodenal ulcer this is expected considering the patient multiple medical problems and again she is presently requiring pressors/norepinephrine and the patient is status post multiple blood products transfusion -Vent management per critical care Massive upper GI bleeding secondary to bleeding duodenal ulcer -Status post respiratory laparotomy with repair of perforated duodenal ulcer and pyloroplasty by general surgeon on September 16 -Aspirin and Plavix on hold Bilateral lower extremity cellulitis secondary to nonhealing vascular status ulcers -Status post debridement with deep tissue culture by vascular surgery -Culture grew multiple organisms -Resume IV cefepime per ID -Infectious disease following Acute urinary tract infection on presentation Type 2 diabetes History of subacute CVA -Aspirin and Plavix on hold secondary to above Toxic/metabolic encephalopathy, as noted by neurology. Sepsis, and possible septic shock. Hypovolemic shock is not entirely ruled out. History of cardiomyopathy and LV dysfunction. Objective - Vital Signs Vital signs: Vital Signs Temp 98.0 F 10/19/21 08:00 Pulse 70 10/19/21 12:30 Resp 12 10/19/21 12:30 BP 117/62 10/19/21 12:30 Pulse Ox 99 10/19/21 12:30 Intake & Output 10/18/21 10/19/21 10/19/21 18:59 06:59 18:59 Intake Total 2193.729 3280.007 1090.000 Output Total 3230 1805 1575 Balance -8461.655 2680.007 -485.000 Weight 100.2 kg 99.79 kg Intake: IV 1535 1980 990 Lactated Ringers 1,000 ml 1100 1200 600 @ 100 mls/hr IV .Q10H [facility] Rx#:[id number] Mvi, Adult No.4 with Vit 240 K 10 ml Trace (Conc-1Ml/ Dose) 1 ml Sodium Acetate 30 meq Potassium Acetate 20 meq Magnesium Sulfate gm 1 gm Calcium Gluconate 1 gm In Amino Acid 4.25%-D10w 1,000 ml @ 30 mls/hr IV .Q24H [facility] Rx#:[id number] Mvi, Adult No.4 with Vit 195 780 390 K 10 ml Trace (Conc-1Ml/ Dose) 1 ml Sodium Acetate 30 meq Potassium Acetate 20 meq Magnesium Sulfate gm 1 gm Calcium Gluconate 1 gm In Amino Acid 4.25%-D10w 1,000 ml @ 65 mls/hr IV .BY DURATION [facility] Rx#: [id number] Intake, IV Titration 089.838 9715.007 100.000 Amount Mvi, Adult No.4 with Vit 964.167 K 10 ml Trace (Conc-1Ml/ Dose) 1 ml Sodium Acetate 30 meq Potassium Acetate 20 meq Magnesium Sulfate gm 1 gm Calcium Gluconate 1 gm In Amino Acid 4.25%-D10w 1,000 ml @ 65 mls/hr IV .BY DURATION [facility] Rx#: [id number] Norepinephrine 8 mg In 201.662 149.61 Sodium Chloride 0.9% 250 ml @ 0.2 MCG/KG/MIN 32. 431 mls/hr IV .Q7H58M [facility] Rx#:[id number] propofoL 1,000 mg In 147.067 186.23 100.000 Empty Bag 1 bag @ 5 MCG/ KG/MIN 2.514 mls/hr IV . Q24H [facility] Rx#:[id number] Blood Product 310 Rc As-1 Unit 310 [id number] Output: Drainage 600 175 Right Upper Abdomen 600 175 Urine 2630 1630 1575 Other: Voiding Method Indwelling Catheter Indwelling Catheter Indwelling Catheter ABP, PAP, CO, CI - Last Documented Arterial Blood Pressure 132/53 - Labs CBC & Chem 7: 10/19/21 06:50 10/19/21 06:50 Labs: Abnormal Lab Results - Last 24 Hours (Table) 10/18/21 10/18/2122 Range/Units 13:30 14:58 18:15 WBC 32.3 H (3.8-10.6) k/uL RBC 2.67 L (3.80-5.40) m/uL Hgb 8.1 L (11.4-16.0) gm/dL Hct 24.0 L (34.0-46.0) % RDW 17.1 H (11.5-15.5) % Plt Count (150-450) k/uL Neutrophils # (1.3-7.7) k/uL Lymphocytes # (1.0-4.8) k/uL ABG pH (7.35-7.45) ABG pCO2 (35-45) mmHg ABG Total CO2 (19-24) mmol/L ABG O2 Saturation (94-97) % Sodium 136 L (137-145) mmol/L Potassium 3.2 L (3.5-5.1) mmol/L Chloride 113 H (98-107) mmol/L BUN 20 H (7-17) mg/dL Glucose 145 H (74-99) mg/dL POC Glucose (mg/dL) 176 H (75-99) mg/dL Calcium 6.5 L (8.4-10.2) mg/dL Phosphorus (2.5-4.5) mg/dL Total Protein (6.3-8.2) g/dL Albumin (3.5-5.0) g/dL 10/18/21 10/18/21 10/19/21 Range/Units 23:05 23:55 05:37 WBC (3.8-10.6) k/uL RBC (3.80-5.40) m/uL Hgb (11.4-16.0) gm/dL Hct (34.0-46.0) % RDW (11.5-15.5) % Plt Count (150-450) k/uL Neutrophils # (1.3-7.7) k/uL Lymphocytes # (1.0-4.8) k/uL ABG pH (7.35-7.45) ABG pCO2 (35-45) mmHg ABG Total CO2 (19-24) mmol/L ABG O2 Saturation (94-97) % Sodium (137-145) mmol/L Potassium 2.9 L (3.5-5.1) mmol/L Chloride (98-107) mmol/L BUN (7-17) mg/dL Glucose (74-99) mg/dL POC Glucose (mg/dL) 147 H 113 H (75-99) mg/dL Calcium (8.4-10.2) mg/dL Phosphorus (2.5-4.5) mg/dL Total Protein (6.3-8.2) g/dL Albumin (3.5-5.0) g/dL 10/19/21 10/19/21 10/19/21 Range/Units 06:06 06:50 06:50 WBC 27.3 H (3.8-10.6) k/uL RBC 2.51 L (3.80-5.40) m/uL Hgb 7.6 L (11.4-16.0) gm/dL Hct 22.6 L (34.0-46.0) % RDW 17.8 H (11.5-15.5) % Plt Count 147 L (150-450) k/uL Neutrophils # 25.2 H (1.3-7.7) k/uL Lymphocytes # 0.9 L (1.0-4.8) k/uL ABG pH 7.49 H (7.35-7.45) ABG pCO2 33 L (35-45) mmHg ABG Total CO2 26 H (19-24) mmol/L ABG O2 Saturation 98.1 H (94-97) % Sodium 136 L (137-145) mmol/L Potassium 3.4 L (3.5-5.1) mmol/L Chloride 110 H (98-107) mmol/L BUN 22 H (7-17) mg/dL Glucose 137 H (74-99) mg/dL POC Glucose (mg/dL) (75-99) mg/dL Calcium 6.6 L (8.4-10.2) mg/dL Phosphorus 1.3 L (2.5-4.5) mg/dL Total Protein 3.4 L (6.3-8.2) g/dL Albumin 1.4 L (3.5-5.0) g/dL 10/19/21 Range/Units 12:13 WBC (3.8-10.6) k/uL RBC (3.80-5.40) m/uL Hgb (11.4-16.0) gm/dL Hct (34.0-46.0) % RDW (11.5-15.5) % Plt Count (150-450) k/uL Neutrophils # (1.3-7.7) k/uL Lymphocytes # (1.0-4.8) k/uL ABG pH (7.35-7.45) ABG pCO2 (35-45) mmHg ABG Total CO2 (19-24) mmol/L ABG O2 Saturation (94-97) % Sodium (137-145) mmol/L Potassium (3.5-5.1) mmol/L Chloride (98-107) mmol/L BUN (7-17) mg/dL Glucose (74-99) mg/dL POC Glucose (mg/dL) 165 H (75-99) mg/dL Calcium (8.4-10.2) mg/dL Phosphorus (2.5-4.5) mg/dL Total Protein (6.3-8.2) g/dL Albumin (3.5-5.0) g/dL Microbiology - Last 24 Hours (Table) 10/16/21 23:45 Gram Stain - Final Sputum Sputum Culture - Final Darcy albicans
--- NOTE | 2021-10-19 16:12 | OP ---
OPERATIVE REPORT OPERATIVE REPORT: Placement of right brachial arterial line. PREOPERATIVE DIAGNOSIS: Acute hypoxic respiratory failure and hypotension. POSTOPERATIVE DIAGNOSIS: Acute hypoxic respiratory failure and hypotension. ANESTHESIA USED: None deployed. PROCEDURE DESCRIPTION: The patient was placed in supine position. The right brachial area was prepared in a sterile fashion and drapes were applied. The right brachial artery was palpated, cannulated, and a guidewire was placed. A Cook's catheter was inserted over the guidewire, and the guidewire was removed. Good blood flow and good waveform were noted. No complications. Line was secured using 3.0 silk sutures. MMODL / IJN: [id number] /
[2021-10-19 17:56] LABS: Glucose,Whole Blood 147 mg/dL (75-99)
[2021-10-19] MEDS ORDERED: 1: MVI, ADULT NO.4 WITH VIT K 10 ML, TRACE (CONC-1ML/DOSE) 1 ML, SODIUM ACETATE 30 MEQ, IV SCH ×8 (22:00)
--- NOTE | 2021-10-19 23:40 | P.PN ---
Subjective Progress Note Date: 10/19/21 Principal diagnosis: Bilateral lower extremity venous stasis ulcer and cellulitis Patient is a 66-year-old female who has not seen a physician in 20 years presented to the hospital with significant bilateral lower extremity necrotic wound and secondary cellulitis in this patient who is status post surgical debridement of these wounds in the OR on 10/13/2021. Patient did have a GI bleed could not be controlled through the EGD patient subsequently taken to the OR and status post laparotomy for a bleeding and perforated duodenal ulcer disease on 10/16/2021 On today's evaluation that is 10/19/2021, the patient still remains remains to be afebrile, the patient is hemodynamically stable , the patient remains to be intubated on the vent and FiO2 is stable at 40%, no significant purulent secretions through the ET and no diarrhea has been reported by nursing staff Objective - Vital Signs Vital signs: Vital Signs Temp 98.2 F 10/19/21 12:00 Pulse 74 10/19/21 15:00 Resp 16 10/19/21 15:00 BP 128/68 10/19/21 15:00 Pulse Ox 100 10/19/21 15:00 Intake & Output 10/18/21 10/19/21 10/19/21 18:59 06:59 18:59 Intake Total 2193.729 3280.007 1560.530 Output Total 3230 1805 1925 Balance -5258.131 6701.007 -364.470 Weight 100.2 kg 99.79 kg Intake: IV 1535 1980 1320 Lactated Ringers 1,000 ml 1100 1200 800 @ 100 mls/hr IV .Q10H [facility] Rx#:[id number] Mvi, Adult No.4 with Vit 240 K 10 ml Trace (Conc-1Ml/ Dose) 1 ml Sodium Acetate 30 meq Potassium Acetate 20 meq Magnesium Sulfate gm 1 gm Calcium Gluconate 1 gm In Amino Acid 4.25%-D10w 1,000 ml @ 30 mls/hr IV .Q24H [facility] Rx#:[id number] Mvi, Adult No.4 with Vit 195 780 520 K 10 ml Trace (Conc-1Ml/ Dose) 1 ml Sodium Acetate 30 meq Potassium Acetate 20 meq Magnesium Sulfate gm 1 gm Calcium Gluconate 1 gm In Amino Acid 4.25%-D10w 1,000 ml @ 65 mls/hr IV .BY DURATION [facility] Rx#: [id number] Intake, IV Titration 105.639 6016.007 240.530 Amount Mvi, Adult No.4 with Vit 964.167 K 10 ml Trace (Conc-1Ml/ Dose) 1 ml Sodium Acetate 30 meq Potassium Acetate 20 meq Magnesium Sulfate gm 1 gm Calcium Gluconate 1 gm In Amino Acid 4.25%-D10w 1,000 ml @ 65 mls/hr IV .BY DURATION [facility] Rx#: [id number] Norepinephrine 8 mg In 201.662 149.61 140.53 Sodium Chloride 0.9% 250 ml @ 0.2 MCG/KG/MIN 32. 431 mls/hr IV .Q7H58M [facility] Rx#:[id number] propofoL 1,000 mg In 147.067 186.23 100.000 Empty Bag 1 bag @ 5 MCG/ KG/MIN 2.514 mls/hr IV . Q24H [facility] Rx#:[id number] Blood Product 310 Rc As-1 Unit 310 [id number] Output: Drainage 600 175 Right Upper Abdomen 600 175 Urine 2630 1630 1925 Other: Voiding Method Indwelling Catheter Indwelling Catheter Indwelling Catheter ABP, PAP, CO, CI - Last Documented Arterial Blood Pressure 93/47 - Exam GENERAL DESCRIPTION: An elderly female intubated on the vent RESPIRATORY SYSTEM: Unlabored breathing , decreased breath sounds at bases HEART: S1 S2 regular rate and rhythm , ABDOMEN: Soft , no tenderness EXTREMITIES: Bilateral lower extremity wounds are currently dressed no drainage on the dressing - Labs CBC & Chem 7: 10/19/21 06:50 10/19/21 18:47 Labs: Abnormal Lab Results - Last 24 Hours (Table) 10/18/21 10/18/21 10/18/21 Range/Units 18:15 23:05 23:55 WBC (3.8-10.6) k/uL RBC (3.80-5.40) m/uL Hgb (11.4-16.0) gm/dL Hct (34.0-46.0) % RDW (11.5-15.5) % Plt Count (150-450) k/uL Neutrophils # (1.3-7.7) k/uL Lymphocytes # (1.0-4.8) k/uL ABG pH (7.35-7.45) ABG pCO2 (35-45) mmHg ABG Total CO2 (19-24) mmol/L ABG O2 Saturation (94-97) % Sodium (137-145) mmol/L Potassium 2.9 L (3.5-5.1) mmol/L Chloride (98-107) mmol/L BUN (7-17) mg/dL Glucose (74-99) mg/dL POC Glucose (mg/dL) 176 H 147 H (75-99) mg/dL Calcium (8.4-10.2) mg/dL Phosphorus (2.5-4.5) mg/dL Total Protein (6.3-8.2) g/dL Albumin (3.5-5.0) g/dL 10/19/21 10/19/21 10/19/21 Range/Units 05:37 06:06 06:50 WBC (3.8-10.6) k/uL RBC (3.80-5.40) m/uL Hgb (11.4-16.0) gm/dL Hct (34.0-46.0) % RDW (11.5-15.5) % Plt Count (150-450) k/uL Neutrophils # (1.3-7.7) k/uL Lymphocytes # (1.0-4.8) k/uL ABG pH 7.49 H (7.35-7.45) ABG pCO2 33 L (35-45) mmHg ABG Total CO2 26 H (19-24) mmol/L ABG O2 Saturation 98.1 H (94-97) % Sodium 136 L (137-145) mmol/L Potassium 3.4 L (3.5-5.1) mmol/L Chloride 110 H (98-107) mmol/L BUN 22 H (7-17) mg/dL Glucose 137 H (74-99) mg/dL POC Glucose (mg/dL) 113 H (75-99) mg/dL Calcium 6.6 L (8.4-10.2) mg/dL Phosphorus 1.3 L (2.5-4.5) mg/dL Total Protein 3.4 L (6.3-8.2) g/dL Albumin 1.4 L (3.5-5.0) g/dL 10/19/21 10/19/21 Range/Units 06:50 12:13 WBC 27.3 H (3.8-10.6) k/uL RBC 2.51 L (3.80-5.40) m/uL Hgb 7.6 L (11.4-16.0) gm/dL Hct 22.6 L (34.0-46.0) % RDW 17.8 H (11.5-15.5) % Plt Count 147 L (150-450) k/uL Neutrophils # 25.2 H (1.3-7.7) k/uL Lymphocytes # 0.9 L (1.0-4.8) k/uL ABG pH (7.35-7.45) ABG pCO2 (35-45) mmHg ABG Total CO2 (19-24) mmol/L ABG O2 Saturation (94-97) % Sodium (137-145) mmol/L Potassium (3.5-5.1) mmol/L Chloride (98-107) mmol/L BUN (7-17) mg/dL Glucose (74-99) mg/dL POC Glucose (mg/dL) 165 H (75-99) mg/dL Calcium (8.4-10.2) mg/dL Phosphorus (2.5-4.5) mg/dL Total Protein (6.3-8.2) g/dL Albumin (3.5-5.0) g/dL Microbiology - Last 24 Hours (Table) 10/16/21 23:45 Gram Stain - Final Sputum Sputum Culture - Final Darcy albicans Assessment and Plan (1) Cellulitis Current Visit: Yes Status: Acute Code(s): L03.90 - CELLULITIS, UNSPECIFIED SNOMED Code(s): 404005212 Plan: 1patient with bilateral lower extremity nonhealing wound and cellulitis seems to be more of a venous stasis ulcers with secondary cellulitis and likely from gram-positive skin pb less likely gram-negative infection in this patient has not seen a physician for 20 years less likelihood of a MRSA infection. 2 patient is status post surgical debridement and deep culture which are currently growing multiple pathogens including Pseudomonas strep 3patient did have acute GI bleed with evidence of perforated and bleeding duodenal ulcer requiring laparotomy, patient is currently covered with cefepime and Flagyl and Eraxis and monitor clinical course closely 4-elevated white count multifactorial however is trending down and will be mon itor closely Time with Patient: Less than 30
[2021-10-20] MEDS: NOREPINEPHRINE 8 MG in SODIUM CHLORIDE 0.9% 250 ML IV SCH ×3 (00:30→16:25)
[2021-10-20 00:35] LABS: Glucose,Whole Blood 159 mg/dL (75-99)
[2021-10-20] MEDS: INSULIN ASPART (NovoLOG) 100 UNIT/ML VIAL SQ SCH ×4 (00:36→18:25)
[2021-10-20] MEDS: metroNIDAZOLE-NS PMX 500 MG in SALINE 1 100ML.BAG IVPB SCH ×3 (00:36→16:39)
[2021-10-20] MEDS: LACTATED RINGERS 1,000 ML IV SCH ×2 (04:35→16:38)
[2021-10-20 05:11] LABS: Anisocytosis Slight; Basophils # (A) 0.1 k/uL (0-0.2); Basophils % (A) 0 %; Eosinophils # (A) 0.1 k/uL (0-0.7); Eosinophils % (A) 1 %; HCT 23.4 % (34.0-46.0); HGB 7.6 gm/dL (11.4-16.0); Lymphocytes # (A) 0.9 k/uL (1.0-4.8); Lymphocytes % (A) 4 %; MCH 29.7 pg (25.0-35.0); MCHC 32.6 g/dL (31.0-37.0); MCV 91.1 fL (80.0-100.0); Mean Platelet Volume 8.8; Monocytes # (A) 0.9 k/uL (0-1.0); Monocytes % (A) 4 %; Neutrophils # (A) 22.4 k/uL (1.3-7.7); Neutrophils % (A) 91 %; Platelet Count 185 k/uL (150-450); RBC 2.56 m/uL (3.80-5.40); RDW 17.5 % (11.5-15.5); WBC 24.6 k/uL (3.8-10.6)
[2021-10-20 05:23] LABS: Albumin 1.5 g/dL (3.5-5.0); Calcium 6.7 mg/dL (8.4-10.2); Magnesium 1.6 mg/dL (1.6-2.3); Phosphorus 2.1 mg/dL (2.5-4.5); Potassium 3.5 mmol/L (3.5-5.1); Total Bilirubin 0.4 mg/dL (0.2-1.3); Total Protein 3.5 g/dL (6.3-8.2)
[2021-10-20] MEDS ORDERED: POTASSIUM PHOSPHATE 10 MMOL in SODIUM CHLORIDE 0.9% 100 ML IV ONE (05:39)
[2021-10-20] MEDS ORDERED: Phosphorus Replacement Protoco 1 EACH MISC MISCELLANE PRN (05:39)
[2021-10-20] MEDS ORDERED: Potassium Replacement Protocol 1 EACH MISC MISCELLANE PRN (05:39)
[2021-10-20 05:59] LABS: ABG Base Excess 6.1 mmol/L; ABG HCO3 30 mmol/L (21-25); ABG PCO2 41 mmHg (35-45); ABG PH 7.47 (7.35-7.45); ABG PO2 95 mmHg (83-108); ABG TCO2 31 mmol/L (19-24); Allen Test Performed? Yes
[2021-10-20] MEDS: POTASSIUM CHLORIDE 20 MEQ in WATER FOR INJECTION 1 100ML.BAG IVPB SCH ×2 (06:02→08:43)
[2021-10-20] MEDS: MAGNESIUM SULFATE-D5W PMX 1 GM in DEXTROSE/WATER 1 100ML.BAG IVPB SCH ×2 (06:03→07:52)
--- NOTE | 2021-10-20 06:50 | XR ---
EXAMINATION TYPE: XR chest 1V portable DATE OF EXAM: 10/20/2021 COMPARISON: 10/19/2021 HISTORY: Tube placement TECHNIQUE: Single frontal view of the chest is obtained. FINDINGS: There is an ET tube 3.3 cm above the emily. There is an NG tube within the stomach. There is a left jugular central venous catheter the tip of which is in the brachiocephalic vein. There is pulmonary vascular congestion and interstitial edema as well as airspace edema unchanged com pared to the prior study. Heart is enlarged and the findings are most consistent with CHF. There is no pneumothorax. The osseous structures are intact IMPRESSION: 1. Findings most consistent with CHF with no significant interval change. 2. ET tube 3.3 cm above the emily.
[2021-10-20] MEDS: PANTOPRAZOLE 40 MG/10 ML VIAL IVP SCH ×2 (08:46→21:27)
[2021-10-20] MEDS: FUROSEMIDE 10 MG/ML 2 ML VIAL IV SCH ×2 (08:47→21:28)
[2021-10-20] MEDS: ANIDULAFUNGIN 100 MG in SODIUM CHLORIDE 0.9% 100 ML IVPB SCH (08:48)
[2021-10-20] MEDS: CEFEPIME 2 GM in SODIUM CHLORIDE 0.9% 100 ML IVPB SCH ×2 (08:49→21:28)
[2021-10-20] MEDS: ATORVASTATIN 40 MG TAB PO SCH (08:49)
[2021-10-20] MEDS: GABAPENTIN 100 MG CAP PO SCH ×2 (08:50→16:25)
[2021-10-20] MEDS: CHLORHEXIDINE GLUCONATE 15 ML CUP MUCOUS MEM SCH ×2 (08:50→21:27)
[2021-10-20] MEDS: ENOXAPARIN 40 MG/0.4 ML SYRINGE SQ SCH (08:50)
--- NOTE | 2021-10-20 10:14 | P.PN ---
Subjective Progress Note Date: 10/20/21 Principal diagnosis: Duodenal ulcer Patient is stable on the ventilator. Remains on low-dose pressors. Nasogastric aspirate is now bilious. MARIA LUISA remained serous. White blood cell count elevated at 24, hemoglobin 7.6. Objective - Vital Signs Vital signs: Vital Signs Temp 98.5 F 10/20/21 08:00 Pulse 85 10/20/21 10:00 Resp 26 H 10/20/21 10:00 BP 117/63 10/20/21 10:00 Pulse Ox 98 10/20/21 10:00 Intake & Output 10/19/21 10/20/21 10/20/21 18:59 06:59 18:59 Intake Total 2320.530 2359.664 495 Output Total 2400 3150 1600 Balance -79.470 -790.336 -1105 Weight 101.469 kg Intake: IV 1980 2145 495 Lactated Ringers 1,000 ml 1200 1300 300 @ 100 mls/hr IV .Q10H [facility] Rx#:[id number] Mvi, Adult No.4 with Vit 780 845 195 K 10 ml Trace (Conc-1Ml/ Dose) 1 ml Sodium Acetate 30 meq Potassium Acetate 20 meq Magnesium Sulfate gm 1 gm Calcium Gluconate 1 gm In Amino Acid 4.25%-D10w 1,000 ml @ 65 mls/hr IV .BY DURATION [facility] Rx#: [id number] Intake, IV Titration 340.530 214.664 Amount Norepinephrine 8 mg In 140.53 88.644 Sodium Chloride 0.9% 250 ml @ 0.2 MCG/KG/MIN 32. 431 mls/hr IV .Q7H58M [facility] Rx#:[id number] propofoL 1,000 mg In 200.000 126.02 Empty Bag 1 bag @ 5 MCG/ KG/MIN 2.514 mls/hr IV . Q24H [facility] Rx#:[id number] Output: Drainage 200 Right Upper Abdomen 200 Urine 2400 2950 1600 Other: Voiding Method Indwelling Catheter Indwelling Catheter Indwelling Catheter ABP, PAP, CO, CI - Last Documented Arterial Blood Pressure 103/49 - Exam Abdomen: Soft, nondistended, incision clean and dry, MARIA LUISA serous - Labs CBC & Chem 7: 10/20/21 04:43 10/20/21 04:43 Labs: Abnormal Lab Results - Last 24 Hours (Table) 10/19/21 10/19/21 10/20/21 Range/Units 12:13 17:53 00:33 WBC (3.8-10.6) k/uL RBC (3.80-5.40) m/uL Hgb (11.4-16.0) gm/dL Hct (34.0-46.0) % RDW (11.5-15.5) % Neutrophils # (1.3-7.7) k/uL Lymphocytes # (1.0-4.8) k/uL ABG pH (7.35-7.45) ABG HCO3 (21-25) mmol/L ABG Total CO2 (19-24) mmol/L ABG O2 Saturation (94-97) % Sodium (137-145) mmol/L BUN (7-17) mg/dL Glucose (74-99) mg/dL POC Glucose (mg/dL) 165 H 147 H 159 H (75-99) mg/dL Calcium (8.4-10.2) mg/dL Phosphorus (2.5-4.5) mg/dL Total Protein (6.3-8.2) g/dL Albumin (3.5-5.0) g/dL 10/20/21 10/20/21 10/20/21 Range/Units 04:43 04:43 05:55 WBC 24.6 H (3.8-10.6) k/uL RBC 2.56 L (3.80-5.40) m/uL Hgb 7.6 L (11.4-16.0) gm/dL Hct 23.4 L (34.0-46.0) % RDW 17.5 H (11.5-15.5) % Neutrophils # 22.4 H (1.3-7.7) k/uL Lymphocytes # 0.9 L (1.0-4.8) k/uL ABG pH 7.47 H (7.35-7.45) ABG HCO3 30 H (21-25) mmol/L ABG Total CO2 31 H (19-24) mmol/L ABG O2 Saturation 98.0 H (94-97) % Sodium 135 L (137-145) mmol/L BUN 21 H (7-17) mg/dL Glucose 127 H (74-99) mg/dL POC Glucose (mg/dL) (75-99) mg/dL Calcium 6.7 L (8.4-10.2) mg/dL Phosphorus 2.1 L (2.5-4.5) mg/dL Total Protein 3.5 L (6.3-8.2) g/dL Albumin 1.5 L (3.5-5.0) g/dL Microbiology - Last 24 Hours (Table) 10/16/21 23:45 Gram Stain - Final Sputum Sputum Culture - Final Darcy albicans Assessment and Plan (1) Duodenal ulcer Narrative/Plan: Patient doing well at this time. Continue TPN. Weaning from ventilator per pulmonary. Continue nasogastric tube to suction for now. Will follow. Current Visit: Yes Status: Acute Code(s): K26.9 - DUODENAL ULCER, UNSP ACUTE OR CHRONIC, W/O HEMOR OR PERF SNOMED Code(s): 97065951
--- NOTE | 2021-10-20 10:28 | P.PN ---
Subjective Interval history: This is a 66-year-old female with history of multiple medical problems, patient was admitted initially on 10/11/2021 with mostly bilateral lower extremities cellulitis. Patient was seen by many consultants including internal medicine, neurology, psychiatry, vascular surgery, cardiology, infectious disease, because in addition to her cellulitis of lower extremities, patient had cardiomyopathy with LV dysfunction, she also had subacute CVA, peripheral vessel occlusive disease, and many consultants were addressing her medical issues. Patient was in the ICU yesterday as an overflow, however she had a sudden episode of upper GI bleeding requiring multiple blood transfusions including 4 units of packed RBCs, 2 units of fresh was a plasma, 1 unit of platelets, patient was on aspirin and Plavix. These were placed on hold, patient was seen by gastroenterology, underwent EGD, and she was found to have a bleeding duodenal ulcer. Surgery was consulted on the patient and the patient required surgical intervention yesterday. Patient underwent exploratory laparotomy and repair of perforated to widen ulcer and control of bleeding/pyloroplasty. Postoperatively patient was in the ICU on mechanical ventilation, and I was asked to see her by Dr. grijalva on consultation. She is now on assist control rate of 16 and the volume of 400 FiO2 50% and PEEP of 5 ABG showed a pO2 of 169 pCO2 of 36 pH of 7.38, hence I cut down her FiO2 to 40%. Her hemoglobin this morning is 9.2. Patient is requiring norepinephrine at 0.22 mcg/kg/m, she is on antibiotics, she is also on propofol at 50 mcg/kg/m, she was on bicarb overnight and today after reviewing her labs I discontinued her bicarb drip. I also repositioned her central line which was entering the left internal jugular and ending in the right subclavian on the other side. Patient had some bloody bowel movement today, and she continues to have some coffee ground material in the nasogastric tube but did not require any blood transfusions since yesterday. Patient is noted to have a WBC count of 48.6 hemoglobin is 9.2. Basic metabolic profile is normal, BUN is 19 and creatinine 1.0, blood sugar is 155 this morning. Liver profile is relatively unremarkable Patient was seen and examined in ICU. She still sedated and intubated. She remains on Levophed drip. Discussed with RN at the bedside Physical examination: Head: Atraumatic normocephalic. Endotracheal tube and nasogastric tube are intact. HEENT:[Neck is supple.] [No neck masses.] [No thyromegaly.] [No JVD.] Left IJ triple-lumen catheter is noted this was placed by anesthesia yesterday. Chest: [Symmetrical chest expansion, fine crackles at the bases no rhonchi and no wheezes..] Cardiac Exam: [Normal S1 and S2, no S3 gallop, no murmur.] Abdomen: Postsurgical, nontender, abdominal binder is noted. Negative bowel sounds. Extremities: Both lower extremities are wrapped with Hans wraps. However there is obviously some oozing noted in both lower extremities left more so than right. To be addressed later today by vascular surgery. Neurological Exam: Could not assess, patient is sedated. Assessment and plan: #Postoperative hypoxic respiratory failure -requiring mechanical ventilation and the patient will remain mechanically ventilated mostly because of her hemodynamic instability, and massive GI bleeding secondary to bleeding/perforated duodenal ulcer this is expected considering the patient multiple medical problems and again she is presently requiring pressors/norepinephrine and the patient is status post multiple blood products transfusion -Vent management per critical care Massive upper GI bleeding secondary to bleeding duodenal ulcer -Status post respiratory laparotomy with repair of perforated duodenal ulcer and pyloroplasty by general surgeon on September 16 -Aspirin and Plavix on hold Bilateral lower extremity cellulitis secondary to nonhealing vascular status ulcers -Status post debridement with deep tissue culture by vascular surgery -Culture grew multiple organisms -Resume IV cefepime per ID -Infectious disease following Acute urinary tract infection on presentation Type 2 diabetes History of subacute CVA -Aspirin and Plavix on hold secondary to above Toxic/metabolic encephalopathy, as noted by neurology. Sepsis, and possible septic shock. Hypovolemic shock is not entirely ruled out. History of cardiomyopathy and LV dysfunction. Objective - Vital Signs Vital signs: Vital Signs Temp 98.5 F 10/20/21 08:00 Pulse 85 10/20/21 10:00 Resp 26 H 10/20/21 10:00 BP 117/63 10/20/21 10:00 Pulse Ox 98 10/20/21 10:00 Intake & Output 10/19/21 10/20/21 10/20/21 18:59 06:59 18:59 Intake Total 2320.530 2359.664 495 Output Total 2400 3150 1600 Balance -79.470 -790.336 -1105 Weight 101.469 kg Intake: IV 1979 2145 495 Lactated Ringers 1,000 ml 1200 1300 300 @ 100 mls/hr IV .Q10H [facility] Rx#:[id number] Mvi, Adult No.4 with Vit 780 845 195 K 10 ml Trace (Conc-1Ml/ Dose) 1 ml Sodium Acetate 30 meq Potassium Acetate 20 meq Magnesium Sulfate gm 1 gm Calcium Gluconate 1 gm In Amino Acid 4.25%-D10w 1,000 ml @ 65 mls/hr IV .BY DURATION [facility] Rx#: [id number] Intake, IV Titration 340.530 214.664 Amount Norepinephrine 8 mg In 140.53 88.644 Sodium Chloride 0.9% 250 ml @ 0.2 MCG/KG/MIN 32. 431 mls/hr IV .Q7H58M [facility] Rx#:[id number] propofoL 1,000 mg In 200.000 126.02 Empty Bag 1 bag @ 5 MCG/ KG/MIN 2.514 mls/hr IV . Q24H [facility] Rx#:[id number] Output: Drainage 200 Right Upper Abdomen 200 Urine 2400 2950 1600 Other: Voiding Method Indwelling Catheter Indwelling Catheter Indwelling Catheter ABP, PAP, CO, CI - Last Documented Arterial Blood Pressure 103/49 - Labs CBC & Chem 7: 10/20/21 04:43 10/20/21 04:43 Labs: Abnormal Lab Results - Last 24 Hours (Table) 10/19/21 10/19/21 10/20/21 Range/Units 12:13 17:53 00:33 WBC (3.8-10.6) k/uL RBC (3.80-5.40) m/uL Hgb (11.4-16.0) gm/dL Hct (34.0-46.0) % RDW (11.5-15.5) % Neutrophils # (1.3-7.7) k/uL Lymphocytes # (1.0-4.8) k/uL ABG pH (7.35-7.45) ABG HCO3 (21-25) mmol/L ABG Total CO2 (19-24) mmol/L ABG O2 Saturation (94-97) % Sodium (137-145) mmol/L BUN (7-17) mg/dL Glucose (74-99) mg/dL POC Glucose (mg/dL) 165 H 147 H 159 H (75-99) mg/dL Calcium (8.4-10.2) mg/dL Phosphorus (2.5-4.5) mg/dL Total Protein (6.3-8.2) g/dL Albumin (3.5-5.0) g/dL 10/20/21 10/20/21 10/20/21 Range/Units 04:43 04:43 05:55 WBC 24.6 H (3.8-10.6) k/uL RBC 2.56 L (3.80-5.40) m/uL Hgb 7.6 L (11.4-16.0) gm/dL Hct 23.4 L (34.0-46.0) % RDW 17.5 H (11.5-15.5) % Neutrophils # 22.4 H (1.3-7.7) k/uL Lymphocytes # 0.9 L (1.0-4.8) k/uL ABG pH 7.47 H (7.35-7.45) ABG HCO3 30 H (21-25) mmol/L ABG Total CO2 31 H (19-24) mmol/L ABG O2 Saturation 98.0 H (94-97) % Sodium 135 L (137-145) mmol/L BUN 21 H (7-17) mg/dL Glucose 127 H (74-99) mg/dL POC Glucose (mg/dL) (75-99) mg/dL Calcium 6.7 L (8.4-10.2) mg/dL Phosphorus 2.1 L (2.5-4.5) mg/dL Total Protein 3.5 L (6.3-8.2) g/dL Albumin 1.5 L (3.5-5.0) g/dL Microbiology - Last 24 Hours (Table) 10/16/21 23:45 Gram Stain - Final Sputum Sputum Culture - Final Darcy albicans
--- NOTE | 2021-10-20 11:35 | P.PN ---
Subjective Progress Note Date: 10/20/21 Principal diagnosis: Massive upper GI bleeding secondary to duodenal ulcer This is a 66-year-old female with history of multiple medical problems, patient was admitted initially on 10/11/2021 with mostly bilateral lower extremities cellulitis. Patient was seen by many consultants including internal medicine, neurology, psychiatry, vascular surgery, cardiology, infectious disease, because in addition to her cellulitis of lower extremities, patient had cardiomyopathy with LV dysfunction, she also had subacute CVA, peripheral vessel occlusive disease, and many consultants were addressing her medical issues. Patient was in the ICU yesterday as an overflow, however she had a sudden episode of upper GI bleeding requiring multiple blood transfusions including 4 units of packed RBCs, 2 units of fresh was a plasma, 1 unit of platelets, patient was on aspirin and Plavix. These were placed on hold, patient was seen by gastroenterology, underwent EGD, and she was found to have a bleeding duodenal ulcer. Surgery was consulted on the patient and the patient required surgical intervention yesterday. Patient underwent exploratory laparotomy and repair of perforated to widen ulcer and control of bleeding/pyloroplasty. Postoperatively patient was in the ICU on mechanical ventilation, and I was asked to see her by Dr. grijalva on consultation. She is now on assist control rate of 16 and the volume of 400 FiO2 50% and PEEP of 5 ABG showed a pO2 of 169 pCO2 of 36 pH of 7.38, hence I cut down her FiO2 to 40%. Her hemoglobin this morning is 9.2. Patient is requiring norepinephrine at 0.22 mcg/kg/m, she is on antibiotics, she is also on propofol at 50 mcg/kg/m, she was on bicarb overnight and today after reviewing her labs I discontinued her bicarb drip. I also repositioned her central line which was entering the left internal jugular and ending in the right subclavian on the other side. Patient had some bloody bowel movement today, and she continues to have some coffee ground material in the nasogastric tube but did not require any blood transfusions since yesterday. Patient is noted to have a WBC count of 48.6 hemoglobin is 9.2. Basic metabolic profile is normal, BUN is 19 and creatinine 1.0, blood sugar is 155 this morning. Liver profile is relatively unremarkable. Patient was reevaluated today on 10/18/2021, remains intubated and mechanically ventilated. She is on assist control rate of 16, while at 400 FiO2 40% PEEP of 5. ABG showed a pO2 of 107 pCO2 39 pH of 7.3. Patient remains on propofol at 55 mcg/kg/m she is also on TPN and she still requiring norepinephrine 0.16 mcg/kg/m. Hemoglobin dropped yesterday, and now she is receiving another unit of packed RBCs. Hoping that her blood pressure would improve after the transfusion, and we'll continue to taper down the norepinephrine. No rectal bleeding, patient does have coffee ground material in the nasogastric tube output. Patient is sedated, however when the propofol was placed on hold, she became extremely agitated, and I recommended that we continue sedating the patient, and she is not quite ready for weaning and extubation at this point yet. Not to mention the patient is sedated requiring norepinephrine for hemodynamic support. We'll continue to try on a daily basis weaning possible off mechanical ventilation. In the meantime we'll continue TPN, continue nutritional support, continue treatment for her ulcer, he is on Protonix, and I plan to start the patient on Protonix 40 mg subcu daily, cleared by surgery for subcu heparin. Chest x-ray showed mild interstitial changes today. Possibly mild interstitial edema. WBC count is down to 37.4 hemoglobin is 6.8 today. Electrolytes are unremarkable except for slightly low potassium of 3.5. ABG showed a pO2 of 107 pCO2 of 39 pH of 7.38. Patient is on 50% FiO2. Cut down to 40% Reevaluated today on 10/19/2021, patient remains intubated, mechanically ventilated, remains norepinephrine dependent, blood pressure is marginal, she by however the dose of norepinephrine is down to 0.08 mcg/kg/m. Her ventilator settings are assist control rate of 1612 volume 400 FiO2 40% and PEEP of 5. ABG showed a pO2 of 93 pCO2 33 pH of 7.49, hence no changes were made in the ventilator settings. Her leukocytosis is improving. Patient has excellent urine output, remains on Lasix intermittently as she seems to be quite swollen and edematous, patient received significant amount of fluid since admission. She is on Lasix at 20 mg every 12 hours. Patient is receiving TPN at 65 mL per hour. She is on propofol at 50 mcg/kg/m, norepinephrine 0.08 and she is on antibiotics in the form of cefepime and Flagyl and Eraxis. Chest x-ray showed mild interstitial changes. WBC count is 27.3 hemoglobin is 7.6. Basic metabolic profile is unremarkable, potassium is 3.4 Reevaluated today on 10/20/2021, patient remains in the ICU, intubated and mechanically ventilated. She is sedated, she is on propofol at 45 mcg/kg/m. Still requiring norepinephrine at 0.07 mcg/kg/m at one point she was over 0.18 mcg/kg/m. Patient remains on cefepime, Eraxis and Flagyl. Remains on TPN, and she is still receiving lactated Ringer's at 100 mL per hour. Ventilator jenkins the patient is on assist control rate of 16 tidal volume 400 FiO2 40% PEEP of 5 ABG showed a pO2 of 95 pCO2 41 pH of 7.47, FiO2 was cut down to 35%. Chest x- ray is showing mild interstitial edema however the patient has excellent urine output and she is on a maintenance dose of Lasix. And her oxygenation based on that ABG seems to be improving. Her WBC count is improving down to 24.6, hemoglobin 7.6. Electrolytes and renal profile are normal. Objective - Vital Signs Vital signs: Vital Signs Temp 98.5 F 10/20/21 08:00 Pulse 73 10/20/21 11:00 Resp 27 H 10/20/21 11:00 BP 125/65 10/20/21 11:00 Pulse Ox 97 10/20/21 11:00 Intake & Output 10/19/21 10/20/21 10/20/21 18:59 06:59 18:59 Intake Total 2320.530 2359.664 760 Output Total 2400 3150 2150 Balance -79.470 -790.336 -1390 Weight 101.469 kg Intake: IV 1980 2145 660 Lactated Ringers 1,000 ml 1200 1300 400 @ 100 mls/hr IV .Q10H [facility] Rx#:[id number] Mvi, Adult No.4 with Vit 780 845 260 K 10 ml Trace (Conc-1Ml/ Dose) 1 ml Sodium Acetate 30 meq Potassium Acetate 20 meq Magnesium Sulfate gm 1 gm Calcium Gluconate 1 gm In Amino Acid 4.25%-D10w 1,000 ml @ 65 mls/hr IV .BY DURATION [facility] Rx#: [id number] Intake, IV Titration 340.530 214.664 100 Amount Norepinephrine 8 mg In 140.53 88.644 Sodium Chloride 0.9% 250 ml @ 0.2 MCG/KG/MIN 32. 431 mls/hr IV .Q7H58M [facility] Rx#:[id number] propofoL 1,000 mg In 200.000 126.02 100 Empty Bag 1 bag @ 5 MCG/ KG/MIN 2.514 mls/hr IV . Q24H [facility] Rx#:[id number] Output: Drainage 200 Right Upper Abdomen 200 Urine 2400 2950 2150 Other: Voiding Method Indwelling Catheter Indwelling Catheter Indwelling Catheter ABP, PAP, CO, CI - Last Documented Arterial Blood Pressure 95/46 - Exam Physical Exam: Revealed a 66-year-old female obese, intubated and mechanically ventilated, on propofol, still requiring norepinephrine Head: Atraumatic normocephalic. Endotracheal tube and nasogastric tube are intact. HEENT:[Neck is supple.] [No neck masses.] [No thyromegaly.] [No JVD.] Left IJ triple-lumen catheter is noted Chest: [Symmetrical chest expansion, fine crackles at the bases no rhonchi and no wheezes..] Cardiac Exam: [Normal S1 and S2, no S3 gallop, no murmur.] Abdomen: Postsurgical, nontender, abdominal binder is noted. Negative bowel sounds. Extremities: Both lower extremities are wrapped with Hans wraps. Neurological Exam: Could not assess, patient is sedated on propofol. Psychiatric: Could not assess. Patient is sedated, on propofol. Skin: Chronic cellulitis of lower extremities, both are wrapped with Hans wrap - Labs CBC & Chem 7: 10/20/21 04:43 10/20/21 04:43 Labs: Abnormal Lab Results - Last 24 Hours (Table) 10/19/21 10/19/21 10/20/21 Range/Units 12:13 17:53 00:33 WBC (3.8-10.6) k/uL RBC (3.80-5.40) m/uL Hgb (11.4-16.0) gm/dL Hct (34.0-46.0) % RDW (11.5-15.5) % Neutrophils # (1.3-7.7) k/uL Lymphocytes # (1.0-4.8) k/uL ABG pH (7.35-7.45) ABG HCO3 (21-25) mmol/L ABG Total CO2 (19-24) mmol/L ABG O2 Saturation (94-97) % Sodium (137-145) mmol/L BUN (7-17) mg/dL Glucose (74-99) mg/dL POC Glucose (mg/dL) 165 H 147 H 159 H (75-99) mg/dL Calcium (8.4-10.2) mg/dL Phosphorus (2.5-4.5) mg/dL Total Protein (6.3-8.2) g/dL Albumin (3.5-5.0) g/dL 10/20/21 10/20/21 10/20/21 Range/Units 04:43 04:43 05:55 WBC 24.6 H (3.8-10.6) k/uL RBC 2.56 L (3.80-5.40) m/uL Hgb 7.6 L (11.4-16.0) gm/dL Hct 23.4 L (34.0-46.0) % RDW 17.5 H (11.5-15.5) % Neutrophils # 22.4 H (1.3-7.7) k/uL Lymphocytes # 0.9 L (1.0-4.8) k/uL ABG pH 7.47 H (7.35-7.45) ABG HCO3 30 H (21-25) mmol/L ABG Total CO2 31 H (19-24) mmol/L ABG O2 Saturation 98.0 H (94-97) % Sodium 135 L (137-145) mmol/L BUN 21 H (7-17) mg/dL Glucose 127 H (74-99) mg/dL POC Glucose (mg/dL) (75-99) mg/dL Calcium 6.7 L (8.4-10.2) mg/dL Phosphorus 2.1 L (2.5-4.5) mg/dL Total Protein 3.5 L (6.3-8.2) g/dL Albumin 1.5 L (3.5-5.0) g/dL Microbiology - Last 24 Hours (Table) 10/16/21 23:45 Gram Stain - Final Sputum Sputum Culture - Final Darcy albicans Assessment and Plan Assessment: Impression: Postoperative hypoxic respiratory failure requiring mechanical ventilation and the patient will remain mechanically ventilated mostly because of her hemodynamic instability, and massive GI bleeding secondary to bleeding/perforated duodenal ulcer this is expected considering the patient multiple medical problems and she remains on norepinephrine and the patient is status post multiple blood products transfusion patient is now postoperative day # 4 patient's dose of norepinephrine is down to 0.07, norepinephrine is being titrated for been arterial pressure of 65 or higher Massive upper GI bleeding secondary to bleeding duodenal ulcer, presently under control. Patient has received a total of 5 units of packed RBCs since admission 2 units of fresh frozen plasma and 1 unit of blood Chronic cellulitis of lower extremities Acute urinary tract infection on presentation Type 2 diabetes History of subacute CVA Toxic/metabolic encephalopathy Sepsis, and septic shock cardiomyopathy and LV dysfunction. Patient is intermittently on diuretics to avoid worsening acute on chronic systolic congestive heart failure. Recommendation: Continue ventilatory support, patient is not quite ready for weaning however the patient will be given a trial of sedation today, assess mental status, possibly assess weaning parameters and decide whether the patient isn't ready for weaning. Continue gentle diuresis, patient is known to have LV dysfunction. Continue hemodynamic support, norepinephrine will be titrated accordingly maintaining a mean arterial pressure of 65. Continue GI prophylaxis. Patient is on Protonix. Continue to monitor CBC daily. Continue antibiotics as per infectious disease on the case. Continue Eraxis. Continue Flagyl. Continue cefepime Continue Lovenox for DVT prophylaxis. Continue TPN. Continue to monitor daily labs and renal profile as well as ABG. Continue to hold the Plavix and aspirin. Interruption of sedation today Discussed her condition with surgery on the case. We'll continue to follow while in the ICU. Critical care time is over 30 minutes Time with Patient: Greater than 30
[2021-10-20] MEDS: HYDROmorphone 1 MG/ML 1 ML SYRINGE IVP PRN ×2 (13:20→15:34)
[2021-10-20 13:39] LABS: Glucose,Whole Blood 164 mg/dL (75-99)
[2021-10-20] MEDS: 1: MVI, ADULT NO.4 WITH VIT K 10 ML, TRACE (CONC-1ML/DOSE) 1 ML, SODIUM ACETATE 30 MEQ, IV SCH ×8 (14:07)
[2021-10-20 18:01] LABS: Glucose,Whole Blood 150 mg/dL (75-99)
[2021-10-20] MEDS: DEXMEDETOMIDINE/0.9% NACL(PMX) 400 MCG in EMPTY BAG 1 BAG IV SCH (20:23)
--- NOTE | 2021-10-20 22:04 | P.PN ---
Subjective Progress Note Date: 10/20/21 Principal diagnosis: Bilateral lower extremity venous stasis ulcer and cellulitis Patient is a 66-year-old female who has not seen a physician in 20 years presented to the hospital with significant bilateral lower extremity necrotic wound and secondary cellulitis in this patient who is status post surgical debridement of these wounds in the OR on 10/13/2021. Patient did have a GI bleed could not be controlled through the EGD patient subsequently taken to the OR and status post laparotomy for a bleeding and perforated duodenal ulcer disease on 10/16/2021 On today's evaluation that is 10/20/2021, the patient is afebrile, the patient is hemodynamically stable , the patient remains to be intubated on the vent and FiO2 is down to 35 %, no significant purulent secretions through the ET and no diarrhea has been reported by nursing staff, nursing staff did change the lower extremity dressing and wounds are healing well per the RN Objective - Vital Signs Vital signs: Vital Signs Temp 98.5 F 10/20/21 08:00 Pulse 73 10/20/21 11:00 Resp 27 H 10/20/21 11:00 BP 125/65 10/20/21 11:00 Pulse Ox 97 10/20/21 11:00 Intake & Output 10/19/21 10/20/21 10/20/21 18:59 06:59 18:59 Intake Total 2320.530 2359.664 760 Output Total 2400 3150 2150 Balance -79.470 -790.336 -1390 Weight 101.469 [place]: [place] [address] 660 Lactated Ringers 1,000 ml 1200 1300 400 @ 100 mls/hr IV .Q10H [facility] Rx#:[id number] Mvi, Adult No.4 with Vit 780 845 260 K 10 ml Trace (Conc-1Ml/ Dose) 1 ml Sodium Acetate 30 meq Potassium Acetate 20 meq Magnesium Sulfate gm 1 gm Calcium Gluconate 1 gm In Amino Acid 4.25%-D10w 1,000 ml @ 65 mls/hr IV .BY DURATION [facility] Rx#: [id number] Intake, IV Titration 340.530 214.664 100 Amount Norepinephrine 8 mg In 140.53 88.644 Sodium Chloride 0.9% 250 ml @ 0.2 MCG/KG/MIN 32. 431 mls/hr IV .Q7H58M [facility] Rx#:[id number] propofoL 1,000 mg In 200.000 126.02 100 Empty Bag 1 bag @ 5 MCG/ KG/MIN 2.514 mls/hr IV . Q24H [facility] Rx#:[id number] Output: Drainage 200 Right Upper Abdomen 200 Urine 2400 2950 2150 Other: Voiding Method Indwelling Catheter Indwelling Catheter Indwelling Catheter ABP, PAP, CO, CI - Last Documented Arterial Blood Pressure 95/46 - Exam GENERAL DESCRIPTION: An elderly female intubated on the vent RESPIRATORY SYSTEM: Unlabored breathing , decreased breath sounds at bases HEART: S1 S2 regular rate and rhythm , ABDOMEN: Soft , no tenderness EXTREMITIES: Bilateral lower extremity wounds are currently dressed no drainage on the dressing - Labs CBC & Chem 7: 10/20/21 04:43 10/20/21 04:43 Labs: Abnormal Lab Results - Last 24 Hours (Table) 10/19/21 10/20/21 10/20/21 Range/Units 17:53 00:33 04:43 WBC (3.8-10.6) k/uL RBC (3.80-5.40) m/uL Hgb (11.4-16.0) gm/dL Hct (34.0-46.0) % RDW (11.5-15.5) % Neutrophils # (1.3-7.7) k/uL Lymphocytes # (1.0-4.8) k/uL ABG pH (7.35-7.45) ABG HCO3 (21-25) mmol/L ABG Total CO2 (19-24) mmol/L ABG O2 Saturation (94-97) % Sodium 135 L (137-145) mmol/L BUN 21 H (7-17) mg/dL Glucose 127 H (74-99) mg/dL POC Glucose (mg/dL) 147 H 159 H (75-99) mg/dL Calcium 6.7 L (8.4-10.2) mg/dL Phosphorus 2.1 L (2.5-4.5) mg/dL Total Protein 3.5 L (6.3-8.2) g/dL Albumin 1.5 L (3.5-5.0) g/dL 10/20/21 10/20/21 Range/Units 04:43 05:55 WBC 24.6 H (3.8-10.6) k/uL RBC 2.56 L (3.80-5.40) m/uL Hgb 7.6 L (11.4-16.0) gm/dL Hct 23.4 L (34.0-46.0) % RDW 17.5 H (11.5-15.5) % Neutrophils # 22.4 H (1.3-7.7) k/uL Lymphocytes # 0.9 L (1.0-4.8) k/uL ABG pH 7.47 H (7.35-7.45) ABG HCO3 30 H (21-25) mmol/L ABG Total CO2 31 H (19-24) mmol/L ABG O2 Saturation 98.0 H (94-97) % Sodium (137-145) mmol/L BUN (7-17) mg/dL Glucose (74-99) mg/dL POC Glucose (mg/dL) (75-99) mg/dL Calcium (8.4-10.2) mg/dL Phosphorus (2.5-4.5) mg/dL Total Protein (6.3-8.2) g/dL Albumin (3.5-5.0) g/dL Microbiology - Last 24 Hours (Table) 10/16/21 23:45 Gram Stain - Final Sputum Sputum Culture - Final Darcy albicans Assessment and Plan (1) Cellulitis Current Visit: Yes Status: Acute Code(s): L03.90 - CELLULITIS, UNSPECIFIED SNOMED Code(s): 191752326 Plan: 1patient with bilateral lower extremity nonhealing wound and cellulitis seems to be more of a venous stasis ulcers with secondary cellulitis and likely from gram-positive skin pb less likely gram-negative infection in this patient has not seen a physician for 20 years less likelihood of a MRSA infection. 2 patient is status post surgical debridement and deep culture which are currently growing multiple pathogens including Pseudomonas strep 3patient did have acute GI bleed with evidence of perforated and bleeding duodenal ulcer requiring laparotomy, patient is slowly clinical improvement and will continue with cefepime and Flagyl and Eraxis and monitor clinical course closely Time with Patient: Less than 30
[2021-10-20 23:56] LABS: Glucose,Whole Blood 134 mg/dL (75-99)
[2021-10-21] MEDS: NOREPINEPHRINE 8 MG in SODIUM CHLORIDE 0.9% 250 ML IV SCH ×2 (00:24→03:13)
[2021-10-21] MEDS: INSULIN ASPART (NovoLOG) 100 UNIT/ML VIAL SQ SCH ×4 (00:25→18:24)
[2021-10-21] MEDS: GABAPENTIN 100 MG CAP PO SCH ×4 (00:25→23:07)
[2021-10-21] MEDS: metroNIDAZOLE-NS PMX 500 MG in SALINE 1 100ML.BAG IVPB SCH ×4 (00:38→16:01)
[2021-10-21] MEDS: POTASSIUM CHLORIDE 20 MEQ in WATER FOR INJECTION 1 100ML.BAG IVPB SCH ×2 (00:38→02:42)
[2021-10-21] MEDS: HYDROmorphone 1 MG/ML 1 ML SYRINGE IVP PRN ×2 (02:46→22:16)
[2021-10-21] MEDS: LACTATED RINGERS 1,000 ML IV SCH ×2 (03:07→13:47)
[2021-10-21 05:55] LABS: Glucose,Whole Blood 153 mg/dL (75-99)
[2021-10-21 06:05] LABS: ABG Base Excess 9.7 mmol/L; ABG HCO3 33 mmol/L (21-25); ABG Oxygen Saturation 98.3 % (94-97); ABG PCO2 41 mmHg (35-45); ABG PH 7.51 (7.35-7.45); ABG PO2 95 mmHg (83-108); ABG TCO2 34 mmol/L (19-24); Allen Test Performed? Yes
[2021-10-21 07:00] LABS: Anisocytosis Slight; HCT 22.8 % (34.0-46.0); HGB 7.3 gm/dL (11.4-16.0); MCH 29.7 pg (25.0-35.0); MCHC 32.1 g/dL (31.0-37.0); MCV 92.5 fL (80.0-100.0); Mean Platelet Volume 9.3; Platelet Count 249 k/uL (150-450); RBC 2.46 m/uL (3.80-5.40); RDW 17.7 % (11.5-15.5)
[2021-10-21 07:16] LABS: ALT 11 U/L (4-34); AST 23 U/L (14-36); Alkaline Phosphatase 80 U/L (38-126); Blood Urea Nitrogen 23 mg/dL (7-17); Calcium 6.7 mg/dL (8.4-10.2); Chloride 103 mmol/L (98-107); Glucose 117 mg/dL (74-99); Magnesium 1.8 mg/dL (1.6-2.3); Phosphorus 2.5 mg/dL (2.5-4.5); Sodium 137 mmol/L (137-145); Total Bilirubin 0.5 mg/dL (0.2-1.3); Total Protein 3.7 g/dL (6.3-8.2)
[2021-10-21 07:17] LABS: African American GFR (CKD) >90 (>60 ml/min/1.73 sqM); Albumin 1.5 g/dL (3.5-5.0); Anion Gap 2 mmol/L; Carbon Dioxide 32 mmol/L (22-30); Non-African American GFR(CKD) >90 (>60 ml/min/1.73 sqM)
[2021-10-21] MEDS: ATORVASTATIN 40 MG TAB PO SCH (07:55)
--- NOTE | 2021-10-21 08:12 | XR ---
EXAMINATION TYPE: XR chest 1V portable DATE OF EXAM: 10/21/2021 COMPARISON: X-ray dated 10/20/2021 HISTORY: Tube placement TECHNIQUE: Single frontal view of the chest is obtained. FINDINGS: The tip of endotracheal tube is about 3 cm proximal to the emily. NG tube is seen with the tip is be low the diaphragm yet not included in the [id number]. Left-sided central venous line with persiste nt coiling at the lower neck and the tip seen likely at the medial aspect of the left innominate vein . Arterial atherosclerotic calcifications. Persistent increased density at the left lower lung zone. Pulmonary vascular congestion with prominen t interstitial lung markings which may suggest pulmonary edema. Increased cardiac transverse diameter , possibly augmented by the patient's position. No progressive pulmonary consolidation. Suspected lef t-sided pleural effusion. Unchanged bony thoracic cage. IMPRESSION: Minimal interval changes as described above.
[2021-10-21] MEDS: ENOXAPARIN 40 MG/0.4 ML SYRINGE SQ SCH (08:45)
[2021-10-21] MEDS: PANTOPRAZOLE 40 MG/10 ML VIAL IVP SCH ×2 (08:45→22:16)
[2021-10-21] MEDS: FUROSEMIDE 10 MG/ML 2 ML VIAL IV SCH ×2 (08:46→22:16)
[2021-10-21] MEDS: DEXMEDETOMIDINE/0.9% NACL(PMX) 400 MCG in EMPTY BAG 1 BAG IV SCH (08:46)
[2021-10-21] MEDS: CHLORHEXIDINE GLUCONATE 15 ML CUP MUCOUS MEM SCH (08:46)
[2021-10-21] MEDS: ANIDULAFUNGIN 100 MG in SODIUM CHLORIDE 0.9% 100 ML IVPB SCH (08:46)
--- NOTE | 2021-10-21 08:55 | P.PN ---
Subjective Progress Note Date: 10/21/21 Pt still intubated, ventilated. On precedex, levophed. Continuing cefepime, flagyl, eraxis. Gen: intubated, sedated HEENT: normocephalic, atraumatic, moist mucous membranes Resp: intubated CVS: good distal perfusion x 4, : no SPT, no CVAT, martinez catheter is present MSK: + pitting edema, no clubbing Assessment/Plan: #Acute hypoxic respiratory failure #Acute on Chronic Systolic Heart Failure Exacerbation, EF 40-45% -requiring mechanical ventilation and the patient will remain mechanically ventilated mostly because of her hemodynamic instability, and massive GI bleeding secondary to bleeding/perforated duodenal ulcer this is expected considering the patient multiple medical problems and again she is presently requiring pressors/norepinephrine and the patient is status post multiple blood products transfusion -Vent management per critical care -continue lasix 20mg IV BID #Massive upper GI bleeding secondary to bleeding duodenal ulcer -Status post respiratory laparotomy with repair of perforated duodenal ulcer and pyloroplasty by general surgeon on September 16 -Aspirin and Plavix on hold #Septic Shock #Toxic Encephalopathy #Bilateral lower extremity cellulitis secondary to nonhealing vascular status ulcers, Necrotic #Acute urinary tract infection on presentation -Status post debridement with deep tissue culture by vascular surgery with wound Cx growing polymicrobial organisms, group A strep, pseudomonas, E coli, MSSA -UCx with E colli -Resume IV cefepime, flagyl, eraxis per ID -Infectious disease following #Type 2 diabetes -SSI aspart q6h #History of subacute CVA -Aspirin and Plavix on hold secondary to above Pt is Full Code DVT PPx on hold due to bleed Objective - Vital Signs Vital signs: Vital Signs Temp 36.8 F L 10/21/21 08:00 Pulse 77 10/21/21 08:30 Resp 24 10/21/21 08:30 BP 119/74 10/21/21 08:30 Pulse Ox 98 10/21/21 08:30 Intake & Output 10/20/21 10/21/21 10/21/21 18:59 06:59 18:59 Intake Total 2227.978 1605.744 117.109 Output Total 3475 2570 125 Balance -1247.022 -964.256 -7.891 Weight 95.7 kg Intake: IV 1815 1530 100 Cefepime 2 gm In Sodium 100 Chloride 0.9% 100 ml @ 25 mls/hr IVPB Q12HR [facility] Rx #:[id number] Lactated Ringers 1,000 ml 1100 900 100 @ 100 mls/hr IV .Q10H [facility] Rx#:[id number] Mvi, Adult No.4 with Vit 715 130 K 10 ml Trace (Conc-1Ml/ Dose) 1 ml Sodium Acetate 30 meq Potassium Acetate 20 meq Magnesium Sulfate gm 1 gm Calcium Gluconate 1 gm In Amino Acid 4.25%-D10w 1,000 ml @ 65 mls/hr IV .BY DURATION [facility] Rx#: [id number] Potassium Chloride 20 meq 200 In Water For Injection 1 100ml.bag @ 50 mls/hr IVPB Q2H [facility] Rx#: [id number] metroNIDAZOLE-NS PMX 500 200 mg In Saline 1 100ml.bag @ 100 mls/hr IVPB [facility] Rx#:[id number] Intake, IV Titration 412.978 75.744 17.109 Amount Dexmedetomidine/0.9% NaCl 60.204 (Pmx) 400 mcg In Empty Bag 1 bag @ 0.2 MCG/KG/HR 5.073 mls/hr IV .E19W09H [facility] Rx#:[id number] Norepinephrine 8 mg In 230.685 15.54 17.109 Sodium Chloride 0.9% 250 ml @ 0.2 MCG/KG/MIN 32. 431 mls/hr IV .Q7H58M [facility] Rx#:[id number] propofoL 1,000 mg In 182.293 Empty Bag 1 bag @ 5 MCG/ KG/MIN 2.514 mls/hr IV . Q24H [facility] Rx#:[id number] Output: Drainage 100 135 Right Upper Abdomen 100 135 Urine 3375 2435 125 Other: Voiding Method Indwelling Catheter Indwelling Catheter ABP, PAP, CO, CI - Last Documented Arterial Blood Pressure 92/45 - Labs CBC & Chem 7: 10/21/21 06:45 10/21/21 06:45 Labs: Abnormal Lab Results - Last 24 Hours (Table) 10/20/21 10/20/21 10/20/21 Range/Units 13:37 18:00 23:54 WBC (3.8-10.6) k/uL RBC (3.80-5.40) m/uL Hgb (11.4-16.0) gm/dL Hct (34.0-46.0) % RDW (11.5-15.5) % ABG pH (7.35-7.45) ABG HCO3 (21-25) mmol/L ABG Total CO2 (19-24) mmol/L ABG O2 Saturation (94-97) % Carbon Dioxide (22-30) mmol/L BUN (7-17) mg/dL Glucose (74-99) mg/dL POC Glucose (mg/dL) 164 H 150 H 134 H (75-99) mg/dL Calcium (8.4-10.2) mg/dL Total Protein (6.3-8.2) g/dL Albumin (3.5-5.0) g/dL 10/21/21 10/21/21 10/21/21 Range/Units 05:53 06:00 06:45 WBC (3.8-10.6) k/uL RBC (3.80-5.40) m/uL Hgb (11.4-16.0) gm/dL Hct (34.0-46.0) % RDW (11.5-15.5) % ABG pH 7.51 H (7.35-7.45) ABG HCO3 33 H (21-25) mmol/L ABG Total CO2 34 H (19-24) mmol/L ABG O2 Saturation 98.3 H (94-97) % Carbon Dioxide 32 H (22-30) mmol/L BUN 23 H (7-17) mg/dL Glucose 117 H (74-99) mg/dL POC Glucose (mg/dL) 153 H (75-99) mg/dL Calcium 6.7 L (8.4-10.2) mg/dL Total Protein 3.7 L (6.3-8.2) g/dL Albumin 1.5 L (3.5-5.0) g/dL 10/21/21 Range/Units 06:45 WBC 17.0 H (3.8-10.6) k/uL RBC 2.46 L (3.80-5.40) m/uL Hgb 7.3 L (11.4-16.0) gm/dL Hct 22.8 L (34.0-46.0) % RDW 17.7 H (11.5-15.5) % ABG pH (7.35-7.45) ABG HCO3 (21-25) mmol/L ABG Total CO2 (19-24) mmol/L ABG O2 Saturation (94-97) % Carbon Dioxide (22-30) mmol/L BUN (7-17) mg/dL Glucose (74-99) mg/dL POC Glucose (mg/dL) (75-99) mg/dL Calcium (8.4-10.2) mg/dL Total Protein (6.3-8.2) g/dL Albumin (3.5-5.0) g/dL
--- NOTE | 2021-10-21 09:42 | P.PN ---
Subjective Progress Note Date: 10/21/21 Principal diagnosis: Respiratory failure. Patient was reevaluated today on 10/18/2021, remains intubated and mechanically ventilated. She is on assist control rate of 16, while at 400 FiO2 40% PEEP of 5. ABG showed a pO2 of 107 pCO2 39 pH of 7.3. Patient remains on propofol at 55 mcg/kg/m she is also on TPN and she still requiring norepinephrine 0.16 mcg/kg/m. Hemoglobin dropped yesterday, and now she is receiving another unit of packed RBCs. Hoping that her blood pressure would improve after the transfusion, and we'll continue to taper down the norepinephrine. No rectal bleeding, patient does have coffee ground material in the nasogastric tube output. Patient is sedated, however when the propofol was placed on hold, she became extremely agitated, and I recommended that we continue sedating the patient, and she is not quite ready for weaning and extubation at this point yet. Not to mention the patient is sedated requiring norepinephrine for hemodynamic support. We'll continue to try on a daily basis weaning possible off mechanical ventilation. In the meantime we'll continue TPN, continue nutritional support, continue treatment for her ulcer, he is on Protonix, and I plan to start the patient on Protonix 40 mg subcu daily, cleared by surgery for subcu heparin. Chest x-ray showed mild interstitial changes today. Possibly mild interstitial edema. WBC count is down to 37.4 hemoglobin is 6.8 today. Electrolytes are unremarkable except for slightly low potassium of 3.5. ABG showed a pO2 of 107 pCO2 of 39 pH of 7.38. Patient is on 50% FiO2. Cut down to 40% Reevaluated today on 10/19/2021, patient remains intubated, mechanically ventilated, remains norepinephrine dependent, blood pressure is marginal, she by however the dose of norepinephrine is down to 0.08 mcg/kg/m. Her ventilator settings are assist control rate of 1612 volume 400 FiO2 40% and PEEP of 5. ABG showed a pO2 of 93 pCO2 33 pH of 7.49, hence no changes were made in the vent ilator settings. Her leukocytosis is improving. Patient has excellent urine output, remains on Lasix intermittently as she seems to be quite swollen and edematous, patient received significant amount of fluid since admission. She is on Lasix at 20 mg every 12 hours. Patient is receiving TPN at 65 mL per hour. She is on propofol at 50 mcg/kg/m, norepinephrine 0.08 and she is on antibiotics in the form of cefepime and Flagyl and Eraxis. Chest x-ray showed mild interstitial changes. WBC count is 27.3 hemoglobin is 7.6. Basic metabolic profile is unremarkable, potassium is 3.4 Reevaluated today on 10/20/2021, patient remains in the ICU, intubated and mechanically ventilated. She is sedated, she is on propofol at 45 mcg/kg/m. Still requiring norepinephrine at 0.07 mcg/kg/m at one point she was over 0.18 mcg/kg/m. Patient remains on cefepime, Eraxis and Flagyl. Remains on TPN, and she is still receiving lactated Ringer's at 100 mL per hour. Ventilator jenkins the patient is on assist control rate of 16 tidal volume 400 FiO2 40% PEEP of 5 ABG showed a pO2 of 95 pCO2 41 pH of 7.47, FiO2 was cut down to 35%. Chest x- ray is showing mild interstitial edema however the patient has excellent urine output and she is on a maintenance dose of Lasix. And her oxygenation based on that ABG seems to be improving. Her WBC count is improving down to 24.6, hemoglobin 7.6. Electrolytes and renal profile are normal. Progress note dated 10/21/2021. This is a patient was initially admitted back on October 11. She came into the hospital with cellulitis. She came to the intensive care unit on October 15, and was intubated on October 16, respiratory failure severe GI bleeding. She went to the op erating room, on the same day, and had an exploratory laparotomy, repair to Myke also, and pyloroplasty. She remains on mechanical ventilator. She is on the volume assist control, rate 16, tidal volume 400, FiO2 35%, PEEP of 5. Blood gases show pO2 of 95, pCO2 41, and pH is 7.51. Blood gases are consistent with a metabolic alkalosis. She is on norepinephrine at 4 mcg/m, Precedex at 0.1 mcg/kg/h, lactated Ringer's at 100 mL an hour, and TPN at 65 mL an hour. White count 17, hemoglobin 7.3, hematocrit 22.8, platelet count 2 49,000. Sodium 137, potassium 4, chlorides 103, CO2 32, anion gap 2, BUN 23, and creatinine 0.68. Albumin is only 1.5. Microbiologic studies are reviewed. Chest x-ray shows some increased density at the left lung base, and some pulmonary vascular congestion and interstitial lung markings to be more prominent. Objective - Vital Signs Vital signs: Vital Signs Temp 36.8 F L 10/21/21 08:00 Pulse 72 10/21/21 09:00 Resp 25 H 10/21/21 09:00 BP 119/74 10/21/21 09:00 Pulse Ox 100 10/21/21 09:00 Intake & Output 10/20/21 10/21/21 10/21/21 18:59 06:59 18:59 Intake Total 2227.978 1605.744 340.022 Output Total 3475 2570 325 Balance -1247.022 -964.256 15.022 Weight 95.7 kg Intake: IV 1815 1530 300 Cefepime 2 gm In Sodium 100 Chloride 0.9% 100 ml @ 25 mls/hr IVPB Q12HR [facility] Rx #:[id number] Lactated Ringers 1,000 ml 1100 900 300 @ 100 mls/hr IV .Q10H [facility] Rx#:[id number] Mvi, Adult No.4 with Vit 715 130 K 10 ml Trace (Conc-1Ml/ Dose) 1 ml Sodium Acetate 30 meq Potassium Acetate 20 meq Magnesium Sulfate gm 1 gm Calcium Gluconate 1 gm In Amino Acid 4.25%-D10w 1,000 ml @ 65 mls/hr IV .BY DURATION [facility] Rx#: [id number] Potassium Chloride 20 meq 200 In Water For Injection 1 100ml.bag @ 50 mls/hr IVPB Q2H [facility] Rx#: [id number] metroNIDAZOLE-NS PMX 500 200 mg In Saline 1 100ml.bag @ 100 mls/hr IVPB ONCE [facility] Rx#:[id number] Intake, IV Titration 412.978 75.744 40.022 Amount Dexmedetomidine/0.9% NaCl 60.204 22.913 (Pmx) 400 mcg In Empty Bag 1 bag @ 0.2 MCG/KG/HR 5.073 mls/hr IV .[id number] [facility] Rx#:[id number] Norepinephrine 8 mg In 230.685 15.54 17.109 Sodium Chloride 0.9% 250 ml @ 0.2 MCG/KG/MIN 32. 431 mls/hr IV .[id number] [facility] Rx#:[id number] propofoL 1,000 mg In 182.293 Empty Bag 1 bag @ 5 MCG/ KG/MIN 2.514 mls/hr IV . Q24H [facility] Rx#:[id number] Output: Drainage 100 135 Right Upper Abdomen 100 135 Urine 3375 2435 325 Other: Voiding Method Indwelling Catheter Indwelling Catheter ABP, PAP, CO, CI - Last Documented Arterial Blood Pressure 104/50 - Exam No acute distress, sedated on dexmedetomidine. Orally placed endotracheal tube noted. HEENT examination is grossly unremarkable. Neck supple. Full range of motion. No adenopathy thyromegaly or neck vein dis tention. Cardiovascular examination reveals an irregular rhythm and rate. S1-S2 normal. No S3 or S4. No discernible murmur noted. Heart rate 72 bpm. Lungs reveal scattered rhonchi. Breath sounds equal. No wheezes. No crackles. Saturations are 100%. Abdomen soft without bowel sounds. Extremities are intact. No cyanosis clubbing or edema. Skin is without rash or lesion. Neurologic examination cannot be evaluated properly because the patient's currently sedated. - Labs CBC & Chem 7: 10/21/21 06:45 10/21/21 06:45 Labs: Abnormal Lab Results - Last 24 Hours (Table) 10/20/21 10/20/21 10/20/21 Range/Units 13:37 18:00 23:54 WBC (3.8-10.6) k/uL RBC (3.80-5.40) m/uL Hgb (11.4-16.0) gm/dL Hct (34.0-46.0) % RDW (11.5-15.5) % ABG pH (7.35-7.45) ABG HCO3 (21-25) mmol/L ABG Total CO2 (19-24) mmol/L ABG O2 Saturation (94-97) % Carbon Dioxide (22-30) mmol/L BUN (7-17) mg/dL Glucose (74-99) mg/dL POC Glucose (mg/dL) 164 H 150 H 134 H (75-99) mg/dL Calcium (8.4-10.2) mg/dL Total Protein (6.3-8.2) g/dL Albumin (3.5-5.0) g/dL 10/21/21 10/21/21 10/21/21 Range/Units 05:53 06:00 06:45 WBC (3.8-10.6) k/uL RBC (3.80-5.40) m/uL Hgb (11.4-16.0) gm/dL Hct (34.0-46.0) % RDW (11.5-15.5) % ABG pH 7.51 H (7.35-7.45) ABG HCO3 33 H (21-25) mmol/L ABG Total CO2 34 H (19-24) mmol/L ABG O2 Saturation 98.3 H (94-97) % Carbon Dioxide 32 H (22-30) mmol/L BUN 23 H (7-17) mg/dL Glucose 117 H (74-99) mg/dL POC Glucose (mg/dL) 153 H (75-99) mg/dL Calcium 6.7 L (8.4-10.2) mg/dL Total Protein 3.7 L (6.3-8.2) g/dL Albumin 1.5 L (3.5-5.0) g/dL 10/21/21 Range/Units 06:45 WBC 17.0 H (3.8-10.6) k/uL RBC 2.46 L (3.80-5.40) m/uL Hgb 7.3 L (11.4-16.0) gm/dL Hct 22.8 L (34.0-46.0) % RDW 17.7 H (11.5-15.5) % ABG pH (7.35-7.45) ABG HCO3 (21-25) mmol/L ABG Total CO2 (19-24) mmol/L ABG O2 Saturation (94-97) % Carbon Dioxide (22-30) mmol/L BUN (7-17) mg/dL Glucose (74-99) mg/dL POC Glucose (mg/dL) (75-99) mg/dL Calcium (8.4-10.2) mg/dL Total Protein (6.3-8.2) g/dL Albumin (3.5-5.0) g/dL Assessment and Plan Assessment: Postoperative respiratory failure, requiring intubation and mechanical ventilation. Postoperative day #5, status post exploratory laparotomy, repair of duodenal ulcer, and pyloroplasty for GI bleed. Massive upper GI bleed, status post surgery. Chronic cellulitis lower extremities. Acute urinary tract infection. Type 2 diabetes mellitus. History of CVA. Toxic/metabolic encephalopathy. Sepsis, with septic shock. Cardiomyopathy with LV dysfunction. Plan: Plan dated 10/21/2021. The patient remains on a small dose of norepinephrine. The patient's also on dexmedetomidine for agitation. Today, we will stop the sedation, and do a daily interruption of sedation, trial. The patient be placed on PSV 5 CPAP of 5. She may or may not be ready for extubation. Weaning parameters will be done. Labs, x-rays, medications are reviewed. She continues on GI and DVT prophylaxis. Labs, x-rays, medications are reviewed. Prognosis is guarded. We will continue to follow and make recommendations where appropriate. Time with Patient: Greater than 30
[2021-10-21] MEDS: 1: MVI, ADULT NO.4 WITH VIT K 10 ML, TRACE (CONC-1ML/DOSE) 1 ML, SODIUM ACETATE 30 MEQ, IV SCH ×8 (10:07)
[2021-10-21] MEDS ORDERED: Magnesium Replacement Protocol 1 EACH MISC MISCELLANE PRN (10:10)
[2021-10-21] MEDS: MAGNESIUM SULFATE-D5W PMX 1 GM in DEXTROSE/WATER 1 100ML.BAG IVPB SCH ×2 (10:23→12:17)
[2021-10-21] MEDS: CEFEPIME 2 GM in SODIUM CHLORIDE 0.9% 100 ML IVPB SCH ×2 (10:42→16:32)
--- NOTE | 2021-10-21 11:29 | P.PN ---
Subjective Progress Note Date: 10/21/21 CHIEF COMPLAINT: Duodenal ulcer HISTORY OF PRESENT ILLNESS: Patient is in the ICU and intubated. She is postop day #5 status post Exploratory laparotomy with repair of perforated duodenal ulcer and control of bleeding, pyloroplasty. Pulmonary service is planning on x-ray dating patient today. She did have 2 maroon-colored stools with clots this morning. Hemoglobin is at 7.3. NG tube with bile output noted in canister. Per nursing staff no output for her shift. MARIA LUISA drain with 115 mL of serous output. Patient is on TPN for nutrition. She also remains on Levophed for her hypotension. Afebrile. WBC 24.6 down 17 HGB 7.6-7.3 PHYSICAL EXAM: VITAL SIGNS: Reviewed. GENERAL: Well-developed in no acute distress. HEENT: No sclera icterus. Extraocular movements grossly intact. Moist buccal m ucosa. Head is atraumatic, normocephalic. ABDOMEN: Soft. nondistended. Incisional dressing with some shadowing at the distal aspect. MARIA LUISA drain serous output ASSESSMENT: 1. Duodenal ulcer with perforation and active bleeding status post Exploratory laparotomy with repair of perforated duodenal ulcer and control of bleeding, pyloroplasty. PLAN: -Continue NG tube suction -Continue PPI -Continue to monitor hemoglobin -Antibiotics per ID service -Continue TPN for nutrition support -Continue ICU management -Continue supportive care -DVT prophylaxis Lovenox Physician Director [employer] note has been reviewed by physician. Signing provider agrees with the documented findings, assessment, and plan of care. I have personally seen and examined the patient, reviewed the SPA HOST /PAs history, exam and MDM and agree with the assessment and plan as written. Based on total visit time, I have performed more than 50% of the visit. As above: Patient doing well today. She was extubated. Nasogastric tube is bilious. She did have 2 maroon colored stools likely representing old blood. Hemoglobin maintaining at 7.3. Keep nasogastric tube to suction. Continue pulmonary toilet. Objective - Vital Signs Vital signs: Vital Signs Temp 98.2 F 10/21/21 08:00 Pulse 96 10/21/21 11:00 Resp 21 10/21/21 11:00 BP 93/56 10/21/21 11:00 Pulse Ox 100 10/21/21 11:00 Intake & Output 10/20/21 10/21/21 10/21/21 18:59 06:59 18:59 Intake Total 2227.978 1605.744 582.638 Output Total 3475 2570 1400 Balance -1247.022 -964.256 -817.362 Weight 95.7 kg Intake: IV 1815 1530 525 Cefepime 2 gm In Sodium 100 25 Chloride 0.9% 100 ml @ 25 mls/hr IVPB Q12HR [facility] Rx #:[id number] Lactated Ringers 1,000 ml 1100 900 500 @ 100 mls/hr IV .Q10H [facility] Rx#:[id number] Mvi, Adult No.4 with Vit 715 130 K 10 ml Trace (Conc-1Ml/ Dose) 1 ml Sodium Acetate 30 meq Potassium Acetate 20 meq Magnesium Sulfate gm 1 gm Calcium Gluconate 1 gm In Amino Acid 4.25%-D10w 1,000 ml @ 65 mls/hr IV .BY DURATION [facility] Rx#: [id number] Potassium Chloride 20 meq 200 In Water For Injection 1 100ml.bag @ 50 mls/hr IVPB Q2H [facility] Rx#: [id number] metroNIDAZOLE-NS PMX 500 200 mg In Saline 1 100ml.bag @ 100 mls/hr IVPB ONCE [facility] Rx#:[id number] Intake, IV Titration 412.978 75.744 57.638 Amount Dexmedetomidine/0.9% NaCl 60.204 27.665 (Pmx) 400 mcg In Empty Bag 1 bag @ 0.2 MCG/KG/HR 5.073 mls/hr IV .[id number] [facility] Rx#:[id number] Norepinephrine 8 mg In 230.685 15.54 29.973 Sodium Chloride 0.9% 250 ml @ 0.2 MCG/KG/MIN 32. 431 mls/hr IV .Q7H58M [facility] Rx#:[id number] propofoL 1,000 mg In 182.293 Empty Bag 1 bag @ 5 MCG/ KG/MIN 2.514 mls/hr IV . Q24H [facility] Rx#:[id number] Output: Drainage 100 135 Right Upper Abdomen 100 135 Urine 3375 2435 1400 Other: Voiding Method Indwelling Catheter Indwelling Catheter Indwelling Catheter # Bowel Movements 1 ABP, PAP, CO, CI - Last Documented Arterial Blood Pressure 149/68 - Labs CBC & Chem 7: 10/21/21 06:45 10/21/21 06:45 Labs: Abnormal Lab Results - Last 24 Hours (Table) 10/20/21 10/20/21 10/20/21 Range/Units 13:37 18:00 23:54 WBC (3.8-10.6) k/uL RBC (3.80-5.40) m/uL Hgb (11.4-16.0) gm/dL Hct (34.0-46.0) % RDW (11.5-15.5) % ABG pH (7.35-7.45) ABG HCO3 (21-25) mmol/L ABG Total CO2 (19-24) mmol/L ABG O2 Saturation (94-97) % Carbon Dioxide (22-30) mmol/L BUN (7-17) mg/dL Glucose (74-99) mg/dL POC Glucose (mg/dL) 164 H 150 H 134 H (75-99) mg/dL Calcium (8.4-10.2) mg/dL Total Protein (6.3-8.2) g/dL Albumin (3.5-5.0) g/dL 10/21/21 10/21/21 10/21/21 Range/Units 05:53 06:00 06:45 WBC (3.8-10.6) k/uL RBC (3.80-5.40) m/uL Hgb (11.4-16.0) gm/dL Hct (34.0-46.0) % RDW (11.5-15.5) % ABG pH 7.51 H (7.35-7.45) ABG HCO3 33 H (21-25) mmol/L ABG Total CO2 34 H (19-24) mmol/L ABG O2 Saturation 98.3 H (94-97) % Carbon Dioxide 32 H (22-30) mmol/L BUN 23 H (7-17) mg/dL Glucose 117 H (74-99) mg/dL POC Glucose (mg/dL) 153 H (75-99) mg/dL Calcium 6.7 L (8.4-10.2) mg/dL Total Protein 3.7 L (6.3-8.2) g/dL Albumin 1.5 L (3.5-5.0) g/dL 10/21/21 Range/Units 06:45 WBC 17.0 H (3.8-10.6) k/uL RBC 2.46 L (3.80-5.40) m/uL Hgb 7.3 L (11.4-16.0) gm/dL Hct 22.8 L (34.0-46.0) % RDW 17.7 H (11.5-15.5) % ABG pH (7.35-7.45) ABG HCO3 (21-25) mmol/L ABG Total CO2 (19-24) mmol/L ABG O2 Saturation (94-97) % Carbon Dioxide (22-30) mmol/L BUN (7-17) mg/dL Glucose (74-99) mg/dL POC Glucose (mg/dL) (75-99) mg/dL Calcium (8.4-10.2) mg/dL Total Protein (6.3-8.2) g/dL Albumin (3.5-5.0) g/dL
--- NOTE | 2021-10-21 12:10 | P.PN ---
Subjective Progress Note Date: 10/21/21 I am seeing the patient for the first time during this admission. Please refer to Dr. Andrew and Dr. Schwartz note for further details. It seems patient has large subacute right cerebral hemispheric stroke and has encephalopathy/delerium due to infection. The patient was on IV Precedex low dose earlier today and was stopped 1 hour prior to my examination. She was extubated today. The patient's is at bedside and states she is about the same. Objective - Vital Signs Vital signs: Vital Signs Temp 98.2 F 10/21/21 08:00 Pulse 77 10/21/21 10:00 Resp 20 10/21/21 10:00 BP 123/97 10/21/21 10:00 Pulse Ox 98 10/21/21 10:00 Intake & Output 10/20/21 10/21/21 10/21/21 18:59 06:59 18:59 Intake Total 2227.978 1605.744 457.638 Output Total 3475 2570 1025 Balance -1247.022 -964.256 -567.362 Weight 95.7 kg Intake: IV 1815 1530 400 Cefepime 2 gm In Sodium 100 Chloride 0.9% 100 ml @ 25 mls/hr IVPB Q12HR [facility] Rx #:[id number] Lactated Ringers 1,000 ml 1100 900 400 @ 100 mls/hr IV .Q10H [facility] Rx#:[id number] Mvi, Adult No.4 with Vit 715 130 K 10 ml Trace (Conc-1Ml/ Dose) 1 ml Sodium Acetate 30 meq Potassium Acetate 20 meq Magnesium Sulfate gm 1 gm Calcium Gluconate 1 gm In Amino Acid 4.25%-D10w 1,000 ml @ 65 mls/hr IV .BY DURATION [facility] Rx#: [id number] Potassium Chloride 20 meq 200 In Water For Injection 1 100ml.bag @ 50 mls/hr IVPB Q2H [facility] Rx#: [id number] metroNIDAZOLE-NS PMX 500 200 mg In Saline 1 100ml.bag @ 100 mls/hr IVPB ONCE [facility] Rx#:[id number] Intake, IV Titration 412.978 75.744 57.638 Amount Dexmedetomidine/0.9% NaCl 60.204 27.665 (Pmx) 400 mcg In Empty Bag 1 bag @ 0.2 MCG/KG/HR 5.073 mls/hr IV .[id number] [facility] Rx#:[id number] Norepinephrine 8 mg In 230.685 15.54 29.973 Sodium Chloride 0.9% 250 ml @ 0.2 MCG/KG/MIN 32. 431 mls/hr IV .Q7H58M [facility] Rx#:[id number] propofoL 1,000 mg In 182.293 Empty Bag 1 bag @ 5 MCG/ KG/MIN 2.514 mls/hr IV . Q24H [facility] Rx#:[id number] Output: Drainage 100 135 Right Upper Abdomen 100 135 Urine 3375 2435 1025 Other: Voiding Method Indwelling Catheter Indwelling Catheter Indwelling Catheter # Bowel Movements 1 ABP, PAP, CO, CI - Last Documented Arterial Blood Pressure 124/61 - Exam GENERAL: The patient is lying in bed and is not in acute distress. NEUROLOGICAL: Limited because of cooperation. Higher mental function: The patient is very drowsy but is awakeable to voice. She is oriented to self. She could not tell me place or time She is following simple commands (showing thumbs up, wiggling her toes). awake, alert, oriented to self, place and time Cranial nerves: The pupils are round, equal and reactive to light. Visual florence Could not assess.No facial weakness. Motor: The strength is hard to assess individual muscle strength but is able to raise bilateral upper above gravity and wiggle her toes symmetrically. . Cerebellum:Unable to assess. Sensation: Unable to assess. SOME OF THE WORK-UP: * 2-D echocardiogram revealed inferoseptal hypokinesis or aortic sclerosis with mild aortic stenosis and mild mitral and mild to moderate tricuspid regurgitation. EF is 40-45%. Grade 1 diastolic dysfunction. Mid to basal inferoseptal is hypokinetic. * Carotid Doppler revealed no significant common or internal carotid artery stenosis. * Lipid panel cholesterol 159, LDL 101, HDL 28.3 and triglycerides 146. Patient's hemoglobin A1c 8.0. TSH slightly low 0.222 with normal free T4 1 0.63. * UA shows large amount of leukocyte Estrace. Urine growing E. coli. - Labs CBC & Chem 7: 10/21/21 06:45 10/21/21 06:45 Labs: Abnormal Lab Results - Last 24 Hours (Table) 10/20/21 10/20/21 10/20/21 Range/Units 13:37 18:00 23:54 WBC (3.8-10.6) k/uL RBC (3.80-5.40) m/uL Hgb (11.4-16.0) gm/dL Hct (34.0-46.0) % RDW (11.5-15.5) % ABG pH (7.35-7.45) ABG HCO3 (21-25) mmol/L ABG Total CO2 (19-24) mmol/L ABG O2 Saturation (94-97) % Carbon Dioxide (22-30) mmol/L BUN (7-17) mg/dL Glucose (74-99) mg/dL POC Glucose (mg/dL) 164 H 150 H 134 H (75-99) mg/dL Calcium (8.4-10.2) mg/dL Total Protein (6.3-8.2) g/dL Albumin (3.5-5.0) g/dL 10/21/21 10/21/21 10/21/21 Range/Units 05:53 06:00 06:45 WBC (3.8-10.6) k/uL RBC (3.80-5.40) m/uL Hgb (11.4-16.0) gm/dL Hct (34.0-46.0) % RDW (11.5-15.5) % ABG pH 7.51 H (7.35-7.45) ABG HCO3 33 H (21-25) mmol/L ABG Total CO2 34 H (19-24) mmol/L ABG O2 Saturation 98.3 H (94-97) % Carbon Dioxide 32 H (22-30) mmol/L BUN 23 H (7-17) mg/dL Glucose 117 H (74-99) mg/dL POC Glucose (mg/dL) 153 H (75-99) mg/dL Calcium 6.7 L (8.4-10.2) mg/dL Total Protein 3.7 L (6.3-8.2) g/dL Albumin 1.5 L (3.5-5.0) g/dL 10/21/21 Range/Units 06:45 WBC 17.0 H (3.8-10.6) k/uL RBC 2.46 L (3.80-5.40) m/uL Hgb 7.3 L (11.4-16.0) gm/dL Hct 22.8 L (34.0-46.0) % RDW 17.7 H (11.5-15.5) % ABG pH (7.35-7.45) ABG HCO3 (21-25) mmol/L ABG Total CO2 (19-24) mmol/L ABG O2 Saturation (94-97) % Carbon Dioxide (22-30) mmol/L BUN (7-17) mg/dL Glucose (74-99) mg/dL POC Glucose (mg/dL) (75-99) mg/dL Calcium (8.4-10.2) mg/dL Total Protein (6.3-8.2) g/dL Albumin (3.5-5.0) g/dL Assessment and Plan Assessment: 1. Large, subacute, right cerebral hemispheric infarct, involving the right parietal temporal region-patient does have some left-sided visual field deficits and left rai-sensory neglect. 2. Toxic encephalopathy/delirium secondary to infection 3. Acute UTI. Urine cultures growing E. coli. 4. New onset diabetes 5. Tobacco use 6. Weeping ulcers of the lower extremities, status post debridement 7. Status post exploratory laparotomy with repair of perforated duodenal ulcer, control of bleeding and pyloroplasty 10/16/2021. Plan: * Antiplatelet medications held because of GI bleed. GI and surgical input appreciated. If safe can be started on ASA 81mg or Plavix 75mg (avoid dual because of GI bleed). Patient on Protonix 40 mg IV twice a day. Continue Lipitor 40 mg daily. * Ordered repeat CT head to see extend of patient's stroke. Last CT was on 10/11 * Patient apparently has been declining MRA of the brain that was recommended on the last visit. It was ordered by Dr. Andrew. If unable to perform, I will discontinue and will consider CTA instead. * PT, OT and speech therapy are on board. * continue Lipitor 40 mg daily. Patient's hemoglobin A1c 8.0. Recommend optimize control of diabetes to target A1c <7.0. * ID following. * Will defer the rest of medical management to the primary team and ICU team. * For DVT prophylaxis on Lovenox. The plan is discussed with the patient's (who is at bedside) and her nurse. Devante Newman M.D. Neuro-Hospitalist Time with Patient: Less than 30
[2021-10-21 12:11] LABS: Glucose,Whole Blood 184 mg/dL (75-99)
[2021-10-21 16:32] LABS: Anisocytosis Slight; HCT 22.6 % (34.0-46.0); HGB 7.4 gm/dL (11.4-16.0); MCHC 32.7 g/dL (31.0-37.0); MCV 91.8 fL (80.0-100.0); Platelet Count 286 k/uL (150-450); RBC 2.46 m/uL (3.80-5.40); RDW 18.3 % (11.5-15.5); WBC 14.7 k/uL (3.8-10.6)
[2021-10-21 17:56] LABS: Glucose,Whole Blood 131 mg/dL (75-99)
--- NOTE | 2021-10-21 21:24 | P.PN ---
Subjective Progress Note Date: 10/21/21 Principal diagnosis: Bilateral lower extremity venous stasis ulcer and cellulitis Patient is a 66-year-old female who has not seen a physician in 20 years presented to the hospital with significant bilateral lower extremity necrotic wound and secondary cellulitis in this patient who is status post surgical debridement of these wounds in the OR on 10/13/2021. Patient did have a GI bleed could not be controlled through the EGD patient subsequently taken to the OR and status post laparotomy for a bleeding and perforated duodenal ulcer disease on 10/16/2021 On today's evaluation that is 10/21/2021, the patient remains to be afebrile, the patient is hemodynamically stable with a small dose of Levophed , the patient remains to be intubated on the vent and FiO2 is stable at 35 %, no significant purulent secretions through the ET and no diarrhea has been reported by nursing staff, patient is slowly being weaned off the vent sedation has been cut back Objective - Vital Signs Vital signs: Vital Signs Temp 98.2 F 10/21/21 08:00 Pulse 96 10/21/21 11:00 Resp 21 10/21/21 11:00 BP 93/56 10/21/21 11:00 Pulse Ox 100 10/21/21 11:00 Intake & Output 10/20/21 10/21/21 10/21/21 18:59 06:59 18:59 Intake Total 2227.978 1605.744 582.638 Output Total 3475 2570 1400 Balance -1247.022 -964.256 -817.362 Weight 95.7 kg Intake: IV 1815 1530 525 Cefepime 2 gm In Sodium 100 25 Chloride 0.9% 100 ml @ 25 mls/hr IVPB Q12HR [facility] Rx #:[id number] Lactated Ringers 1,000 ml 1100 900 500 @ 100 mls/hr IV .Q10H [facility] Rx#:[id number] Mvi, Adult No.4 with Vit 715 130 K 10 ml Trace (Conc-1Ml/ Dose) 1 ml Sodium Acetate 30 meq Potassium Acetate 20 meq Magnesium Sulfate gm 1 gm Calcium Gluconate 1 gm In Amino Acid 4.25%-D10w 1,000 ml @ 65 mls/hr IV .BY DURATION [facility] Rx#: [id number] Potassium Chloride 20 meq 200 In Water For Injection 1 100ml.bag @ 50 mls/hr IVPB Q2H [facility] Rx#: [id number] metroNIDAZOLE-NS PMX 500 200 mg In Saline 1 100ml.bag @ 100 mls/hr IVPB [facility] Rx#:[id number] Intake, IV Titration 412.978 75.744 57.638 Amount Dexmedetomidine/0.9% NaCl 60.204 27.665 (Pmx) 400 mcg In Empty Bag 1 bag @ 0.2 MCG/KG/HR 5.073 mls/hr IV .[id number] [facility] Rx#:[id number] Norepinephrine 8 mg In 230.685 15.54 29.973 Sodium Chloride 0.9% 250 ml @ 0.2 MCG/KG/MIN 32. 431 mls/hr IV .[id number] [facility] Rx#:[id number] propofoL 1,000 mg In 182.293 Empty Bag 1 bag @ 5 MCG/ KG/MIN 2.514 mls/hr IV . Q24H [facility] Rx#:[id number] Output: Drainage 100 135 Right Upper Abdomen 100 135 Urine 3375 2435 1400 Other: Voiding Method Indwelling Catheter Indwelling Catheter Indwelling Catheter # Bowel Movements 1 ABP, PAP, CO, CI - Last Documented Arterial Blood Pressure 149/68 - Exam GENERAL DESCRIPTION: An elderly female intubated on the vent RESPIRATORY SYSTEM: Unlabored breathing , decreased breath sounds at bases HEART: S1 S2 regular rate and rhythm , ABDOMEN: Soft , no tenderness EXTREMITIES: Bilateral lower extremity wounds are currently dressed no drainage on the dressing - Labs CBC & Chem 7: 10/21/21 16:25 10/21/21 06:45 Labs: Abnormal Lab Results - Last 24 Hours (Table) 10/20/21 10/20/21 10/20/21 Range/Units 13:37 18:00 23:54 WBC (3.8-10.6) k/uL RBC (3.80-5.40) m/uL Hgb (11.4-16.0) gm/dL Hct (34.0-46.0) % RDW (11.5-15.5) % ABG pH (7.35-7.45) ABG HCO3 (21-25) mmol/L ABG Total CO2 (19-24) mmol/L ABG O2 Saturation (94-97) % Carbon Dioxide (22-30) mmol/L BUN (7-17) mg/dL Glucose (74-99) mg/dL POC Glucose (mg/dL) 164 H 150 H 134 H (75-99) mg/dL Calcium (8.4-10.2) mg/dL Total Protein (6.3-8.2) g/dL Albumin (3.5-5.0) g/dL 10/21/21 10/21/21 10/21/21 Range/Units 05:53 06:00 06:45 WBC (3.8-10.6) k/uL RBC (3.80-5.40) m/uL Hgb (11.4-16.0) gm/dL Hct (34.0-46.0) % RDW (11.5-15.5) % ABG pH 7.51 H (7.35-7.45) ABG HCO3 33 H (21-25) mmol/L ABG Total CO2 34 H (19-24) mmol/L ABG O2 Saturation 98.3 H (94-97) % Carbon Dioxide 32 H (22-30) mmol/L BUN 23 H (7-17) mg/dL Glucose 117 H (74-99) mg/dL POC Glucose (mg/dL) 153 H (75-99) mg/dL Calcium 6.7 L (8.4-10.2) mg/dL Total Protein 3.7 L (6.3-8.2) g/dL Albumin 1.5 L (3.5-5.0) g/dL 10/21/21 Range/Units 06:45 WBC 17.0 H (3.8-10.6) k/uL RBC 2.46 L (3.80-5.40) m/uL Hgb 7.3 L (11.4-16.0) gm/dL Hct 22.8 L (34.0-46.0) % RDW 17.7 H (11.5-15.5) % ABG pH (7.35-7.45) ABG HCO3 (21-25) mmol/L ABG Total CO2 (19-24) mmol/L ABG O2 Saturation (94-97) % Carbon Dioxide (22-30) mmol/L BUN (7-17) mg/dL Glucose (74-99) mg/dL POC Glucose (mg/dL) (75-99) mg/dL Calcium (8.4-10.2) mg/dL Total Protein (6.3-8.2) g/dL Albumin (3.5-5.0) g/dL Assessment and Plan (1) Cellulitis Current Visit: Yes Status: Acute Code(s): L03.90 - CELLULITIS, UNSPECIFIED SNOMED Code(s): 981194089 Plan: 1patient with bilateral lower extremity nonhealing wound and cellulitis seems to be more of a venous stasis ulcers with secondary cellulitis and likely from gram-positive skin pb less likely gram-negative infection in this patient has not seen a physician for 20 years less likelihood of a MRSA infection. 2 patient is status post surgical debridement and deep culture which are currently growing multiple pathogens including Pseudomonas strep 3patient did have acute GI bleed with evidence of perforated and bleeding duodenal ulcer requiring laparotomy, patient seemed to have shown clinical improvement and currently in the process of getting weaned off the vent, patient to continue with cefepime and Flagyl and Eraxis and monitor clinical course closely Time with Patient: Less than 30
[2021-10-22 00:26] LABS: Glucose,Whole Blood 103 mg/dL (75-99)
[2021-10-22] MEDS: INSULIN ASPART (NovoLOG) 100 UNIT/ML VIAL SQ SCH ×4 (00:26→17:47)
[2021-10-22] MEDS: metroNIDAZOLE-NS PMX 500 MG in SALINE 1 100ML.BAG IVPB SCH ×3 (00:30→15:01)
[2021-10-22] MEDS: CEFEPIME 2 GM in SODIUM CHLORIDE 0.9% 100 ML IVPB SCH ×3 (00:30→15:01)
[2021-10-22] MEDS: 1: MVI, ADULT NO.4 WITH VIT K 10 ML, TRACE (CONC-1ML/DOSE) 1 ML, SODIUM ACETATE 30 MEQ, IV SCH ×8 (00:31)
[2021-10-22] MEDS: NOREPINEPHRINE 8 MG in SODIUM CHLORIDE 0.9% 250 ML IV SCH ×4 (05:29→17:50)
[2021-10-22] MEDS: LACTATED RINGERS 1,000 ML IV SCH ×3 (05:31→15:07)
[2021-10-22 05:51] LABS: Glucose,Whole Blood 167 mg/dL (75-99)
[2021-10-22 06:25] LABS: ALT 10 U/L (4-34); AST 24 U/L (14-36); African American GFR (CKD) >90 (>60 ml/min/1.73 sqM); Albumin 1.6 g/dL (3.5-5.0); Alkaline Phosphatase 82 U/L (38-126); Anion Gap 2 mmol/L; Blood Urea Nitrogen 19 mg/dL (7-17); Calcium 6.7 mg/dL (8.4-10.2); Carbon Dioxide 34 mmol/L (22-30); Chloride 100 mmol/L (98-107); Glucose 150 mg/dL (74-99); Non-African American GFR(CKD) >90 (>60 ml/min/1.73 sqM); Potassium 3.6 mmol/L (3.5-5.1); Sodium 136 mmol/L (137-145); Total Bilirubin 0.5 mg/dL (0.2-1.3); Total Protein 3.9 g/dL (6.3-8.2)
[2021-10-22 06:32] LABS: Anisocytosis Slight; HCT 22.9 % (34.0-46.0); HGB 7.3 gm/dL (11.4-16.0); MCH 29.7 pg (25.0-35.0); MCHC 31.8 g/dL (31.0-37.0); MCV 93.3 fL (80.0-100.0); Mean Platelet Volume 8.1; Platelet Count 352 k/uL (150-450); RBC 2.45 m/uL (3.80-5.40); RDW 18.1 % (11.5-15.5); WBC 15.6 k/uL (3.8-10.6)
[2021-10-22] MEDS: GABAPENTIN 100 MG CAP PO SCH ×3 (07:31→21:09)
[2021-10-22] MEDS: ATORVASTATIN 40 MG TAB PO SCH (07:31)
[2021-10-22] MEDS: PANTOPRAZOLE 40 MG/10 ML VIAL IVP SCH ×2 (08:33→21:21)
[2021-10-22] MEDS: FUROSEMIDE 10 MG/ML 2 ML VIAL IV SCH ×2 (08:33→21:21)
[2021-10-22] MEDS: ANIDULAFUNGIN 100 MG in SODIUM CHLORIDE 0.9% 100 ML IVPB SCH (08:33)
[2021-10-22] MEDS: ENOXAPARIN 40 MG/0.4 ML SYRINGE SQ SCH (08:34)
--- NOTE | 2021-10-22 08:50 | XR ---
EXAMINATION TYPE: XR chest 1V portable DATE OF EXAM: 10/22/2021 Comparison: 10/21/2021 Clinical History: 66-year-old female Tube placement Findings: Interval extubation. NG tube remains in place. There may be a surgical drain at the upper abdomen par tially visualized. Left CVC tip, looped once at the left base the neck. Tip probably in the left brac hycephalic vein, not quite crossing the midline. This may be slightly retracted from the prior exam. Heart remains mildly enlarged. Diffuse interstitial density persists along with more focal retrocardi ac opacity and possible small left effusion. Impression: 1. The left CVC is probably in the left brachiocephalic vein just to the left of midline and may be s lightly pulled back in the interval. 2. Correlate for ongoing CHF with pulmonary vascular congestion. 3. Continued small left effusion and retrocardiac atelectasis and or consolidation.
--- NOTE | 2021-10-22 10:00 | P.PN ---
Subjective Progress Note Date: 10/22/21 Principal diagnosis: Respiratory failure. Patient was reevaluated today on 10/18/2021, remains intubated and mechanically ventilated. She is on assist control rate of 16, while at 400 FiO2 40% PEEP of 5. ABG showed a pO2 of 107 pCO2 39 pH of 7.3. Patient remains on propofol at 55 mcg/kg/m she is also on TPN and she still requiring norepinephrine 0.16 mcg/kg/m. Hemoglobin dropped yesterday, and now she is receiving another unit of packed RBCs. Hoping that her blood pressure would improve after the transfusion, and we'll continue to taper down the norepinephrine. No rectal bleeding, patient does have coffee ground material in the nasogastric tube output. Patient is sedated, however when the propofol was placed on hold, she became extremely agitated, and I recommended that we continue sedating the patient, and she is not quite ready for weaning and extubation at this point yet. Not to mention the patient is sedated requiring norepinephrine for hemodynamic support. We'll continue to try on a daily basis weaning possible off mechanical ventilation. In the meantime we'll continue TPN, continue nutritional support, continue treatment for her ulcer, he is on Protonix, and I plan to start the patient on Protonix 40 mg subcu daily, cleared by surgery for subcu heparin. Chest x-ray showed mild interstitial changes today. Possibly mild interstitial edema. WBC count is down to 37.4 hemoglobin is 6.8 today. Electrolytes are unremarkable except for slightly low potassium of 3.5. ABG showed a pO2 of 107 pCO2 of 39 pH of 7.38. Patient is on 50% FiO2. Cut down to 40% Reevaluated today on 10/19/2021, patient remains intubated, mechanically ventilated, remains norepinephrine dependent, blood pressure is marginal, she by however the dose of norepinephrine is down to 0.08 mcg/kg/m. Her ventilator settings are assist control rate of 1612 volume 400 FiO2 40% and PEEP of 5. ABG showed a pO2 of 93 pCO2 33 pH of 7.49, hence no changes were made in the vent ilator settings. Her leukocytosis is improving. Patient has excellent urine output, remains on Lasix intermittently as she seems to be quite swollen and edematous, patient received significant amount of fluid since admission. She is on Lasix at 20 mg every 12 hours. Patient is receiving TPN at 65 mL per hour. She is on propofol at 50 mcg/kg/m, norepinephrine 0.08 and she is on antibiotics in the form of cefepime and Flagyl and Eraxis. Chest x-ray showed mild interstitial changes. WBC count is 27.3 hemoglobin is 7.6. Basic metabolic profile is unremarkable, potassium is 3.4 Reevaluated today on 10/20/2021, patient remains in the ICU, intubated and mechanically ventilated. She is sedated, she is on propofol at 45 mcg/kg/m. Still requiring norepinephrine at 0.07 mcg/kg/m at one point she was over 0.18 mcg/kg/m. Patient remains on cefepime, Eraxis and Flagyl. Remains on TPN, and she is still receiving lactated Ringer's at 100 mL per hour. Ventilator jenkins the patient is on assist control rate of 16 tidal volume 400 FiO2 40% PEEP of 5 ABG showed a pO2 of 95 pCO2 41 pH of 7.47, FiO2 was cut down to 35%. Chest x- ray is showing mild interstitial edema however the patient has excellent urine output and she is on a maintenance dose of Lasix. And her oxygenation based on that ABG seems to be improving. Her WBC count is improving down to 24.6, hemoglobin 7.6. Electrolytes and renal profile are normal. Progress note dated 10/21/2021. This is a patient was initially admitted back on October 11. She came into the hospital with cellulitis. She came to the intensive care unit on October 15, and was intubated on October 16, respiratory failure severe GI bleeding. She went to the op erating room, on the same day, and had an exploratory laparotomy, repair to [place] also, and pyloroplasty. She remains on mechanical ventilator. She is on the volume assist control, rate 16, tidal volume 400, FiO2 35%, PEEP of 5. Blood gases show pO2 of 95, pCO2 41, and pH is 7.51. Blood gases are consistent with a metabolic alkalosis. She is on norepinephrine at 4 mcg/m, Precedex at 0.1 mcg/kg/h, lactated Ringer's at 100 mL an hour, and TPN at 65 mL an hour. White count 17, hemoglobin 7.3, hematocrit 22.8, platelet count 2 49,000. Sodium 137, potassium 4, chlorides 103, CO2 32, anion gap 2, BUN 23, and creatinine 0.68. Albumin is only 1.5. Microbiologic studies are reviewed. Chest x-ray shows some increased density at the left lung base, and some pulmonary vascular congestion and interstitial lung markings to be more prominent. Progress note dated 10/22/2021. This is a patient who was initially admitted back on October 11. She came into the hospital with cellulitis of the lower extremities. She came to the intensive care unit on October 15, and was intubated on October 16, for respiratory failure, and severe GI bleeding. She went to the operating room on the same day, and had exploratory laparotomy, repair to the duodenal ulcer, and pyloroplasty. Yesterday, the patient was extubated from mechanical ventilator, with reasonable blood gases and reasonable weaning parameters. She remains in the intensive care unit. She is very weak. She's currently on 2 L nasal cannula. She remains on lactated Ringer's at 100 mL an hour, and TPN at 65 mL an hour. The patient's currently on norepinephrine at 2.7 mcg/m. The patient's white count is 15.6, hemoglobin 7.3, hematocrit 22.9, platelet count was normal. Sodium 136, potassium 3.6, chlorides 100, CO2 34, anion gap 2, BUN 19, creatinine 0.66. Albumin is 1.6. Chest x-rays consistent with mild fluid overload/CHF. Objective - Vital Signs Vital signs: Vital Signs Temp 98.6 F 10/22/21 08:00 Pulse 89 10/22/21 09:00 Resp 24 10/22/21 09:00 BP 121/73 10/22/21 09:00 Pulse Ox 95 10/22/21 09:00 Intake & Output 10/21/21 10/22/21 10/22/21 18:59 06:59 18:59 Intake Total 0002.618 5168.434 369.704 Output Total 2620 2710 450 Balance -976.632 -1338.566 -80.296 Weight 95.7 kg 90 kg Intake: IV 1560 1365 320 Cefepime 2 gm In Sodium 100 100 Chloride 0.9% 100 ml @ 25 mls/hr IVPB Q12HR [facility] Rx #:[id number] Lactated Ringers 1,000 ml 1200 1100 220 @ 20 mls/hr IV .Q24H [facility] Rx#:[id number] Mvi, Adult No.4 with Vit 260 65 K 10 ml Trace (Conc-1Ml/ Dose) 1 ml Sodium Acetate 30 meq Potassium Acetate 20 meq Magnesium Sulfate gm 1 gm Calcium Gluconate 1 gm In Amino Acid 4.25%-D10w 1,000 ml @ 65 mls/hr IV .BY DURATION [facility] Rx#: [id number] metroNIDAZOLE-NS PMX 500 100 100 mg In Saline 1 100ml.bag @ 100 mls/hr IVPB Q8HR [facility] Rx#:[id number] Intake, IV Titration 83.368 6.434 49.704 Amount Dexmedetomidine/0.9% NaCl 27.665 (Pmx) 400 mcg In Empty Bag 1 bag @ 0.2 MCG/KG/HR 5.073 mls/hr IV .[id number] [facility] Rx#:[id number] Norepinephrine 8 mg In 55.703 6.434 49.704 Sodium Chloride 0.9% 250 ml @ 0.2 MCG/KG/MIN 32. 431 mls/hr IV .[id number] [facility] Rx#:[id number] Output: Gastric Drainage 100 Drainage 80 130 Right Upper Abdomen 80 130 Urine 2540 2480 450 Other: Voiding Method Indwelling Catheter Indwelling Catheter Indwelling Catheter # Bowel Movements 1 ABP, PAP, CO, CI - Last Documented Arterial Blood Pressure 104/59 - Exam No acute distress, currently on nasal O2. The patient was extubated yesterday. She appears very weak. NG tube is still in place. HEENT examination is grossly unremarkable. Neck supple. Full range of motion. No adenopathy thyromegaly or neck vein distention. Cardiovascular examination reveals an irregular rhythm and rate. S1-S2 normal. No S3 or S4. No discernible murmur noted. Heart rate 89 bpm. Lungs reveal scattered rhonchi. Breath sounds equal. No wheezes. No crackles. Saturations are 95 %. Abdomen soft without bowel sounds. Extremities are intact. No cyanosis clubbing or edema. Skin is without rash or lesion. Neurologic examination is brief but nonfocal. - Labs CBC & Chem 7: 10/22/21 05:45 10/22/21 05:45 Labs: Abnormal Lab Results - Last 24 Hours (Table) 10/21/21 10/21/21 10/21/21 Range/Units 12:09 16:25 17:55 WBC 14.7 H (3.8-10.6) k/uL RBC 2.46 L (3.80-5.40) m/uL Hgb 7.4 L (11.4-16.0) gm/dL Hct 22.6 L (34.0-46.0) % RDW 18.3 H (11.5-15.5) % Sodium (137-145) mmol/L Carbon Dioxide (22-30) mmol/L BUN (7-17) mg/dL Glucose (74-99) mg/dL POC Glucose (mg/dL) 184 H 131 H (75-99) mg/dL Calcium (8.4-10.2) mg/dL Total Protein (6.3-8.2) g/dL Albumin (3.5-5.0) g/dL 10/22/21 10/22/21 10/22/21 Range/Units 00:23 05:45 05:45 WBC 15.6 H (3.8-10.6) k/uL RBC 2.45 L (3.80-5.40) m/uL Hgb 7.3 L (11.4-16.0) gm/dL Hct 22.9 L (34.0-46.0) % RDW 18.1 H (11.5-15.5) % Sodium 136 L (137-145) mmol/L Carbon Dioxide 34 H (22-30) mmol/L BUN 19 H (7-17) mg/dL Glucose 150 H (74-99) mg/dL POC Glucose (mg/dL) 103 H (75-99) mg/dL Calcium 6.7 L (8.4-10.2) mg/dL Total Protein 3.9 L (6.3-8.2) g/dL Albumin 1.6 L (3.5-5.0) g/dL 10/22/21 Range/Units 05:50 WBC (3.8-10.6) k/uL RBC (3.80-5.40) m/uL Hgb (11.4-16.0) gm/dL Hct (34.0-46.0) % RDW (11.5-15.5) % Sodium (137-145) mmol/L Carbon Dioxide (22-30) mmol/L BUN (7-17) mg/dL Glucose (74-99) mg/dL POC Glucose (mg/dL) 167 H (75-99) mg/dL Calcium (8.4-10.2) mg/dL Total Protein (6.3-8.2) g/dL Albumin (3.5-5.0) g/dL Assessment and Plan Assessment: Postoperative respiratory failure, requiring intubation and mechanical ventilation, S/P extubation on 10/21/2021. Postoperative day #6, status post exploratory laparotomy, repair of duodenal ulcer, and pyloroplasty for GI bleed. Massive upper GI bleed, status post surgery. Chronic cellulitis lower extremities. Acute urinary tract infection. Type 2 diabetes mellitus. History of CVA. Toxic/metabolic encephalopathy. Sepsis, with septic shock. Cardiomyopathy with LV dysfunction. Plan: Plan dated 10/21/2021. The patient remains on a small dose of norepinephrine. The patient's also on dexmedetomidine for agitation. Today, we will stop the sedation, and do a daily interruption of sedation, trial. The patient be placed on PSV 5 CPAP of 5. She may or may not be ready for extubation. Weaning parameters will be done. Labs, x-rays, medications are reviewed. She continues on GI and DVT prophylaxis. Labs, x-rays, medications are reviewed. Prognosis is guarded. We will continue to follow and make recommendations where appropriate. Plan dated 10/22/2021. The patient was extubated successfully yesterday, on October 21. The patient is still very weak. She remains on norepinephrine at less than 3 mcg/m. Lactated Ringer's which is running at 100 mL an hour, will be turned down to KVO. The patient does have diffuse edema. I have asked the nurses to go very gentle with her pain medications, and also make sure that she has an incentive spirometer in the room. The patient's overall prognosis remains guarded. Labs x-rays a medications are reviewed. Continue to follow the patient and make recommendations where appropriate. Time with Patient: Greater than 30
--- NOTE | 2021-10-22 10:17 | P.PN ---
Subjective Progress Note Date: 10/22/21 Pt extubated to [place], doing well. Incision site is c/d/i. No complaints. Off levophed. Continuing cefepime, flagyl, eraxis. Gen: intubated, sedated HEENT: normocephalic, atraumatic, moist mucous membranes Resp: intubated CVS: good distal perfusion x 4, : no SPT, no CVAT, martinez catheter is present MSK: + pitting edema, no clubbing Assessment/Plan: #Acute hypoxic respiratory failure #Acute on Chronic Systolic Heart Failure Exacerbation, EF 40-45% -requiring mechanical ventilation and the patient will remain mechanically ventilated mostly because of her hemodynamic instability, and massive GI bleeding secondary to bleeding/perforated duodenal ulcer this is expected considering the patient multiple medical problems and again she is presently requiring pressors/norepinephrine and the patient is status post multiple blood products transfusion -Pulmonary following, appreciate recs -continue lasix 20mg IV BID #Massive upper GI bleeding secondary to bleeding duodenal ulcer #Acute Stroke -Status post respiratory laparotomy with repair of perforated duodenal ulcer and pyloroplasty by general surgeon on September 16 -Aspirin and Plavix on hold -Timing of ASA or Plavix per surgery -Nephrology following #Septic Shock #Toxic Encephalopathy #Bilateral lower extremity cellulitis secondary to nonhealing vascular status ulcers, Necrotic #Acute urinary tract infection on presentation -Status post debridement with deep tissue culture by vascular surgery with wound Cx growing polymicrobial organisms, group A strep, pseudomonas, E coli, MSSA -UCx with E colli -Resume IV cefepime, flagyl, eraxis per ID -Infectious disease following #Type 2 diabetes -SSI aspart q6h #History of subacute CVA -Aspirin and Plavix on hold secondary to above Pt is Full Code DVT PPx on hold due to bleed Objective - Vital Signs Vital signs: Vital Signs Temp 98.6 F 10/22/21 08:00 Pulse 89 10/22/21 09:00 Resp 24 10/22/21 09:00 BP 121/73 10/22/21 09:00 Pulse Ox 95 10/22/21 09:00 Intake & Output 10/21/21 10/22/21 10/22/21 18:59 06:59 18:59 Intake Total 7936.799 0149.434 369.704 Output Total 2620 2710 450 Balance -976.632 -1338.566 -80.296 Weight 95.7 kg 90 kg Intake: IV 1560 1365 320 Cefepime 2 gm In Sodium 100 100 Chloride 0.9% 100 ml @ 25 mls/hr IVPB Q12HR [facility] Rx #:[id number] Lactated Ringers 1,000 ml 1200 1100 220 @ 20 mls/hr IV .Q24H [facility] Rx#:[id number] Mvi, Adult No.4 with Vit 260 65 K 10 ml Trace (Conc-1Ml/ Dose) 1 ml Sodium Acetate 30 meq Potassium Acetate 20 meq Magnesium Sulfate gm 1 gm Calcium Gluconate 1 gm In Amino Acid 4.25%-D10w 1,000 ml @ 65 mls/hr IV .BY DURATION [facility] Rx#: [id number] metroNIDAZOLE-NS PMX 500 100 100 mg In Saline 1 100ml.bag @ 100 mls/hr IVPB Q8HR [facility] Rx#:[id number] Intake, IV Titration 83.368 6.434 49.704 Amount Dexmedetomidine/0.9% NaCl 27.665 (Pmx) 400 mcg In Empty Bag 1 bag @ 0.2 MCG/KG/HR 5.073 mls/hr IV .[id number] [facility] Rx#:[id number] Norepinephrine 8 mg In 55.703 6.434 49.704 Sodium Chloride 0.9% 250 ml @ 0.2 MCG/KG/MIN 32. 431 mls/hr IV .Q7H58M [facility] Rx#:[id number] Output: Gastric Drainage 100 Drainage 80 130 Right Upper Abdomen 80 130 Urine 2540 2480 450 Other: Voiding Method Indwelling Catheter Indwelling Catheter Indwelling Catheter # Bowel Movements 1 ABP, PAP, CO, CI - Last Documented Arterial Blood Pressure 104/59 - Labs CBC & Chem 7: 10/22/21 05:45 10/22/21 05:45 Labs: Abnormal Lab Results - Last 24 Hours (Table) 10/21/21 10/21/21 10/21/21 Range/Units 12:09 16:25 17:55 WBC 14.7 H (3.8-10.6) k/uL RBC 2.46 L (3.80-5.40) m/uL Hgb 7.4 L (11.4-16.0) gm/dL Hct 22.6 L (34.0-46.0) % RDW 18.3 H (11.5-15.5) % Sodium (137-145) mmol/L Carbon Dioxide (22-30) mmol/L BUN (7-17) mg/dL Glucose (74-99) mg/dL POC Glucose (mg/dL) 184 H 131 H (75-99) mg/dL Calcium (8.4-10.2) mg/dL Total Protein (6.3-8.2) g/dL Albumin (3.5-5.0) g/dL 10/22/21 10/22/21 10/22/21 Range/Units 00:23 05:45 05:45 WBC 15.6 H (3.8-10.6) k/uL RBC 2.45 L (3.80-5.40) m/uL Hgb 7.3 L (11.4-16.0) gm/dL Hct 22.9 L (34.0-46.0) % RDW 18.1 H (11.5-15.5) % Sodium 136 L (137-145) mmol/L Carbon Dioxide 34 H (22-30) mmol/L BUN 19 H (7-17) mg/dL Glucose 150 H (74-99) mg/dL POC Glucose (mg/dL) 103 H (75-99) mg/dL Calcium 6.7 L (8.4-10.2) mg/dL Total Protein 3.9 L (6.3-8.2) g/dL Albumin 1.6 L (3.5-5.0) g/dL 10/22/21 Range/Units 05:50 WBC (3.8-10.6) k/uL RBC (3.80-5.40) m/uL Hgb (11.4-16.0) gm/dL Hct (34.0-46.0) % RDW (11.5-15.5) % Sodium (137-145) mmol/L Carbon Dioxide (22-30) mmol/L BUN (7-17) mg/dL Glucose (74-99) mg/dL POC Glucose (mg/dL) 167 H (75-99) mg/dL Calcium (8.4-10.2) mg/dL Total Protein (6.3-8.2) g/dL Albumin (3.5-5.0) g/dL
--- NOTE | 2021-10-22 11:15 | CT ---
EXAMINATION TYPE: CT brain wo con DATE OF EXAM: 10/22/2021 COMPARISON: CT dated 10/11/2021 HISTORY: stroke. Visual field deficit. CT DLP: 1099.4 mGycm Automated exposure control for dose reduction was used. TECHNIQUE: CT scan of the brain is performed without IV contrast administration. FINDINGS: Evolving large subacute right MCA territory cortical and subcortical infarct, with apparent progressi ve involvement of the right occipital lobe. Slightly increased density within the infarct which could be due to mild hemorrhagic transformation versus fogging phenomenon. No significant mass effect. Fady ateral cerebral white matter hypodensities likely representing chronic microvascular ischemic changes . Arterial atherosclerotic calcifications. No other acute intracranial hemorrhage. No midline shift, he rniation or ventricular obstruction. Unremarkable basal cisterns, sella and CP angles. Unremarkable o rbits. The patient is intubated. Clear visualized mastoid air cells. Mucosal thickening of the left s phenoid sinus compartment. No aggressive bone lesion. IMPRESSION: Evolving large right MCA territory infarct demonstrating interval changes as detailed above. A new ti ny acute infarct cannot be excluded by this CT scan. Further MRI with DWI assessment can be considere d if clinically required.
--- NOTE | 2021-10-22 11:16 | P.PN ---
Subjective Progress Note Date: 10/22/21 CHIEF COMPLAINT: Duodenal ulcer HISTORY OF PRESENT ILLNESS: Patient is in the ICU. Patient was extubated yesterday. She is postop day #6 status post Exploratory laparotomy with repair of perforated duodenal ulcer and control of bleeding, pyloroplasty. Patient did have another maroon stool yesterday afternoon which is likely old blood. Repeat hemoglobin remained about the same at 7.4. NG tube with 100 mL of bilious output. MARIA LUISA drain with 60 mL of serosanguineous output. Afebrile. WBC is up from 14-15.6 hemoglobin is 7.3 this morning. PHYSICAL EXAM: VITAL SIGNS: Reviewed. GENERAL: Well-developed in no acute distress. HEENT: No sclera icterus. Extraocular movements grossly intact. Moist buccal mucosa. Head is atraumatic, normocephalic. ABDOMEN: Soft. nondistended. Incision site does have some old blood noted otherwise clean dry and intact. ASSESSMENT: 1. Duodenal ulcer with perforation and active bleeding status post Exploratory laparotomy with repair of perforated duodenal ulcer and control of bleeding, pyloroplasty. PLAN: -Continue NG tube to suction -Continue PPI -Continue to monitor hemoglobin -Antibiotics per ID service -Continue TPN for nutrition support -Continue ICU management -Continue supportive care -DVT prophylaxis Lovenox Physician [employer] note has been reviewed by physician. Signing provider agrees with the documented findings, assessment, and plan of care. I have personally seen and examined the patient, reviewed the MANAGER COSMETIC /PAs history, exam and MDM and agree with the assessment and plan as written. Based on total visit time, I have performed more than 50% of the visit. As above: Patient doing well today. More alert. Hemoglobin is stable. MARIA LUISA drain is serous and nasogastric tube is bilious. Keep nothing by mouth. Keep nasogastric tube to suction. Continue antibiotics. Objective - Vital Signs Vital signs: Vital Signs Temp 98.6 F 10/22/21 08:00 Pulse 85 10/22/21 11:00 Resp 22 10/22/21 11:00 BP 114/68 10/22/21 11:00 Pulse Ox 95 10/22/21 11:00 Intake & Output 10/21/21 10/22/21 10/22/21 18:59 06:59 18:59 Intake Total 8660.258 7492.434 459.704 Output Total 2620 2710 1460 Balance -976.632 -1338.566 -1000.296 Weight 95.7 kg 90 kg Intake: IV 1560 1365 410 Cefepime 2 gm In Sodium 100 100 50 Chloride 0.9% 100 ml @ 25 mls/hr IVPB Q12HR [facility] Rx #:[id number] Lactated Ringers 1,000 ml 1200 1100 260 @ 20 mls/hr IV .Q24H [facility] Rx#:[id number] Mvi, Adult No.4 with Vit 260 65 K 10 ml Trace (Conc-1Ml/ Dose) 1 ml Sodium Acetate 30 meq Potassium Acetate 20 meq Magnesium Sulfate gm 1 gm Calcium Gluconate 1 gm In Amino Acid 4.25%-D10w 1,000 ml @ 65 mls/hr IV .BY DURATION [facility] Rx#: [id number] metroNIDAZOLE-NS PMX 500 100 100 mg In Saline 1 100ml.bag @ 100 mls/hr IVPB Q8HR [facility] Rx#:[id number] Intake, IV Titration 83.368 6.434 49.704 Amount Dexmedetomidine/0.9% NaCl 27.665 (Pmx) 400 mcg In Empty Bag 1 bag @ 0.2 MCG/KG/HR 5.073 mls/hr IV .[id number] [facility] Rx#:[id number] Norepinephrine 8 mg In 55.703 6.434 49.704 Sodium Chloride 0.9% 250 ml @ 0.2 MCG/KG/MIN 32. 431 mls/hr IV .Q7H58M [facility] Rx#:[id number] Output: Gastric Drainage 100 Drainage 80 130 60 Right Upper Abdomen 80 130 60 Urine 2540 2480 1400 Other: Voiding Method Indwelling Catheter Indwelling Catheter Indwelling Catheter # Bowel Movements 1 ABP, PAP, CO, CI - Last Documented Arterial Blood Pressure 99/56 - Labs CBC & Chem 7: 10/22/21 05:45 10/22/21 05:45 Labs: Abnormal Lab Results - Last 24 Hours (Table) 10/21/21 10/21/21 10/21/21 Range/Units 12:09 16:25 17:55 WBC 14.7 H (3.8-10.6) k/uL RBC 2.46 L (3.80-5.40) m/uL Hgb 7.4 L (11.4-16.0) gm/dL Hct 22.6 L (34.0-46.0) % RDW 18.3 H (11.5-15.5) % Sodium (137-145) mmol/L Carbon Dioxide (22-30) mmol/L BUN (7-17) mg/dL Glucose (74-99) mg/dL POC Glucose (mg/dL) 184 H 131 H (75-99) mg/dL Calcium (8.4-10.2) mg/dL Total Protein (6.3-8.2) g/dL Albumin (3.5-5.0) g/dL 10/22/21 10/22/21 10/22/21 Range/Units 00:23 05:45 05:45 WBC 15.6 H (3.8-10.6) k/uL RBC 2.45 L (3.80-5.40) m/uL Hgb 7.3 L (11.4-16.0) gm/dL Hct 22.9 L (34.0-46.0) % RDW 18.1 H (11.5-15.5) % Sodium 136 L (137-145) mmol/L Carbon Dioxide 34 H (22-30) mmol/L BUN 19 H (7-17) mg/dL Glucose 150 H (74-99) mg/dL POC Glucose (mg/dL) 103 H (75-99) mg/dL Calcium 6.7 L (8.4-10.2) mg/dL Total Protein 3.9 L (6.3-8.2) g/dL Albumin 1.6 L (3.5-5.0) g/dL 10/22/21 Range/Units 05:50 WBC (3.8-10.6) k/uL RBC (3.80-5.40) m/uL Hgb (11.4-16.0) gm/dL Hct (34.0-46.0) % RDW (11.5-15.5) % Sodium (137-145) mmol/L Carbon Dioxide (22-30) mmol/L BUN (7-17) mg/dL Glucose (74-99) mg/dL POC Glucose (mg/dL) 167 H (75-99) mg/dL Calcium (8.4-10.2) mg/dL Total Protein (6.3-8.2) g/dL Albumin (3.5-5.0) g/dL
[2021-10-22 11:29] LABS: Glucose,Whole Blood 179 mg/dL (75-99)
[2021-10-22] MEDS: HYDROmorphone 1 MG/ML 1 ML SYRINGE IVP PRN ×2 (11:54→21:22)
--- NOTE | 2021-10-22 13:34 | PN ---
PROGRESS NOTE PREOPERATIVE DIAGNOSIS: Bilateral lower extremity wound, post debridement. Today we have changed the dressing. Base of the wound is clean and granulating. We will change the dressing on . Continue with IV antibiotic. MMODL / IJN: [id number] /
[2021-10-22] MEDS: 1: MVI, ADULT NO.4 WITH VIT K 10 ML, TRACE (CONC-1ML/DOSE) 1 ML, SODIUM CHLORIDE 2.5MEQ/ IV SCH ×18 (15:43→16:44)
--- NOTE | 2021-10-22 16:17 | P.PN ---
Subjective Progress Note Date: 10/22/21 The patient is seen at bedside and per her who is at bedside he feels she is doing better on a daily basis. Her nurse feels she is doing better. Objective - Vital Signs Vital signs: Vital Signs Temp 98.1 F 10/22/21 12:00 Pulse 83 10/22/21 15:00 Resp 37 H 10/22/21 15:00 BP 114/68 10/22/21 11:00 Pulse Ox 95 10/22/21 15:00 Intake & Output 10/21/21 10/22/21 10/22/21 18:59 06:59 18:59 Intake Total 3460.055 8567.434 1044.704 Output Total 2620 2710 2185 Balance -976.632 -1338.566 -1140.296 Weight 95.7 kg 90 kg Intake: IV 1560 1365 995 Cefepime 2 gm In Sodium 100 100 100 Chloride 0.9% 100 ml @ 25 mls/hr IVPB Q12HR [facility] Rx #:[id number] Lactated Ringers 1,000 ml 1200 1100 340 @ 20 mls/hr IV .Q24H [facility] Rx#:[id number] Mvi, Adult No.4 with Vit 260 65 455 K 10 ml Trace (Conc-1Ml/ Dose) 1 ml Sodium Acetate 30 meq Potassium Acetate 20 meq Magnesium Sulfate gm 1 gm Calcium Gluconate 1 gm In Amino Acid 4.25%-D10w 1,000 ml @ 65 mls/hr IV .BY DURATION [facility] Rx#: [id number] metroNIDAZOLE-NS PMX 500 100 100 mg In Saline 1 100ml.bag @ 100 mls/hr IVPB Q8HR [facility] Rx#:[id number] Intake, IV Titration 83.368 6.434 49.704 Amount Dexmedetomidine/0.9% NaCl 27.665 (Pmx) 400 mcg In Empty Bag 1 bag @ 0.2 MCG/KG/HR 5.073 mls/hr IV .[id number] [facility] Rx#:[id number] Norepinephrine 8 mg In 55.703 6.434 49.704 Sodium Chloride 0.9% 250 ml @ 0.2 MCG/KG/MIN 32. 431 mls/hr IV .Q7H58M [facility] Rx#:[id number] Output: Gastric Drainage 100 Drainage 80 130 60 Right Upper Abdomen 80 130 60 Urine 2540 2480 2125 Other: Voiding Method Indwelling Catheter Indwelling Catheter Indwelling Catheter # Bowel Movements 1 ABP, PAP, CO, CI - Last Documented Arterial Blood Pressure 108/86 - Exam GENERAL: The patient is lying in bed and is not in acute distress. NEUROLOGICAL: Limited because of cooperation. Higher mental function: The patient is drowsy but is awakeable to voice. She is oriented to self. She is following simple commands (showing thumbs up, wiggling her toes). Cranial nerves: The pupils are round, equal and reactive to light. Visual florence Could not assess.No facial weakness. Motor: The strength is moving all extremities above gravity. . Cerebellum:Unable to assess. Sensation: Unable to assess. SOME OF THE WORK-UP: * 2-D echocardiogram revealed inferoseptal hypokinesis or aortic sclerosis with mild aortic stenosis and mild mitral and mild to moderate tricuspid regur gitation. EF is 40-45%. Grade 1 diastolic dysfunction. Mid to basal inferoseptal is hypokinetic. * Carotid Doppler revealed no significant common or internal carotid artery stenosis. * Lipid panel cholesterol 159, LDL 101, HDL 28.3 and triglycerides 146. Patient's hemoglobin A1c 8.0. TSH slightly low 0.222 with normal free T4 1 0.63. * UA shows large amount of leukocyte Estrace. Urine growing E. coli. - Labs CBC & Chem 7: 10/22/21 05:45 10/22/21 05:45 Labs: Abnormal Lab Results - Last 24 Hours (Table) 10/21/21 10/21/21 10/22/21 Range/Units 16:25 17:55 00:23 WBC 14.7 H (3.8-10.6) k/uL RBC 2.46 L (3.80-5.40) m/uL Hgb 7.4 L (11.4-16.0) gm/dL Hct 22.6 L (34.0-46.0) % RDW 18.3 H (11.5-15.5) % Sodium (137-145) mmol/L Carbon Dioxide (22-30) mmol/L BUN (7-17) mg/dL Glucose (74-99) mg/dL POC Glucose (mg/dL) 131 H 103 H (75-99) mg/dL Calcium (8.4-10.2) mg/dL Total Protein (6.3-8.2) g/dL Albumin (3.5-5.0) g/dL 10/22/21 10/22/21 10/22/21 Range/Units 05:45 05:45 05:50 WBC 15.6 H (3.8-10.6) k/uL RBC 2.45 L (3.80-5.40) m/uL Hgb 7.3 L (11.4-16.0) gm/dL Hct 22.9 L (34.0-46.0) % RDW 18.1 H (11.5-15.5) % Sodium 136 L (137-145) mmol/L Carbon Dioxide 34 H (22-30) mmol/L BUN 19 H (7-17) mg/dL Glucose 150 H (74-99) mg/dL POC Glucose (mg/dL) 167 H (75-99) mg/dL Calcium 6.7 L (8.4-10.2) mg/dL Total Protein 3.9 L (6.3-8.2) g/dL Albumin 1.6 L (3.5-5.0) g/dL 10/22/21 Range/Units 11:27 WBC (3.8-10.6) k/uL RBC (3.80-5.40) m/uL Hgb (11.4-16.0) gm/dL Hct (34.0-46.0) % RDW (11.5-15.5) % Sodium (137-145) mmol/L Carbon Dioxide (22-30) mmol/L BUN (7-17) mg/dL Glucose (74-99) mg/dL POC Glucose (mg/dL) 179 H (75-99) mg/dL Calcium (8.4-10.2) mg/dL Total Protein (6.3-8.2) g/dL Albumin (3.5-5.0) g/dL Assessment and Plan Assessment: 1. Large, subacute, right cerebral hemispheric infarct, involving the right parietal temporal region-patient does have some left-sided visual field deficits and left rai-sensory neglect. 2. Toxic encephalopathy/delirium secondary to infection--improving 3. Acute UTI. Urine cultures growing E. coli. 4. New onset diabetes 5. Tobacco use 6. Weeping ulcers of the lower extremities, status post debridement 7. Status post exploratory laparotomy with repair of perforated duodenal ulcer, control of bleeding and pyloroplasty 10/16/2021. Plan: * Antiplatelet medications held because of GI bleed. GI and surgical input a ppreciated. If safe can be started on ASA 81mg or Plavix 75mg (avoid dual because of GI bleed). Patient on Protonix 40 mg IV twice a day. Continue Lipitor 40 mg daily. * Repeat CT head to see extend of patient's stroke: Was reported as a volunteer large right MCA territory infarct M starting interval change. A new tiny acute infarct cannot be excluded by the CT. I personally reviewed the CT of the head and I don't see any new acute or subacute ischemia I do agree there is involving the of the right MCA which is expected. Clinically the patient is improving so I discussed this with the patient's and the is lungs the patient clinically improves that is a good sign. * Patient apparently has been declining MRA of the brain that was recommended on the last visit. It was ordered by Dr. Andrew. If unable to perform, I will discontinue and will consider CTA instead. * PT, OT and speech therapy are on board. * continue Lipitor 40 mg daily. Patient's hemoglobin A1c 8.0. Recommend opti carmelo control of diabetes to target A1c <7.0. * ID following. * Will defer the rest of medical management to the primary team and ICU team. * For DVT prophylaxis on Lovenox. The plan is discussed with the patient's (who is at bedside) and her nurse. Devante Newman M.D. Neuro-Hospitalist Time with Patient: Less than 30
[2021-10-22 17:45] LABS: Glucose,Whole Blood 146 mg/dL (75-99)
--- NOTE | 2021-10-22 21:25 | P.PN ---
Subjective Progress Note Date: 10/22/21 Principal diagnosis: Bilateral lower extremity venous stasis ulcer and cellulitis Patient is a 66-year-old female who has not seen a physician in 20 years presented to the hospital with significant bilateral lower extremity necrotic wound and secondary cellulitis in this patient who is status post surgical debridement of these wounds in the OR on 10/13/2021. Patient did have a GI bleed could not be controlled through the EGD patient subsequently taken to the OR and status post laparotomy for a bleeding and perforated duodenal ulcer disease on 10/16/2021 On today's evaluation that is 10/22/2021, the patient continues to be afebrile, the patient is hemodynamically stable and off the pressor support , the patient has been extubated and is breathing comfortably on nasal cannula Oxygen, patient is slightly lethargic but was able to answer some simple questions no chest pain no vomiting or diarrhea reported Objective - Vital Signs Vital signs: Vital Signs Temp 98.6 F 10/22/21 08:00 Pulse 85 10/22/21 11:00 Resp 22 10/22/21 11:00 BP 114/68 10/22/21 11:00 Pulse Ox 95 10/22/21 11:00 Intake & Output 10/21/21 10/22/21 10/22/21 18:59 06:59 18:59 Intake Total 3486.898 9664.434 459.704 Output Total 2620 2710 1460 Balance -976.632 -1338.566 -1000.296 Weight 95.7 kg 90 kg Intake: IV 1560 1365 410 Cefepime 2 gm In Sodium 100 100 50 Chloride 0.9% 100 ml @ 25 mls/hr IVPB Q12HR [facility] Rx #:[id number] Lactated Ringers 1,000 ml 1200 1100 260 @ 20 mls/hr IV .Q24H [facility] Rx#:[id number] Mvi, Adult No.4 with Vit 260 65 K 10 ml Trace (Conc-1Ml/ Dose) 1 ml Sodium Acetate 30 meq Potassium Acetate 20 meq Magnesium Sulfate gm 1 gm Calcium Gluconate 1 gm In Amino Acid 4.25%-D10w 1,000 ml @ 65 mls/hr IV .BY DURATION [facility] Rx#: [id number] metroNIDAZOLE-NS PMX 500 100 100 mg In Saline 1 100ml.bag @ 100 mls/hr IVPB Q8HR [facility] Rx#:[id number] Intake, IV Titration 83.368 6.434 49.704 Amount Dexmedetomidine/0.9% NaCl 27.665 (Pmx) 400 mcg In Empty Bag 1 bag @ 0.2 MCG/KG/HR 5.073 mls/hr IV .[id number] [facility] Rx#:[id number] Norepinephrine 8 mg In 55.703 6.434 49.704 Sodium Chloride 0.9% 250 ml @ 0.2 MCG/KG/MIN 32. 431 mls/hr IV .Q7H58M [facility] Rx#:[id number] Output: Gastric Drainage 100 Drainage 80 130 60 Right Upper Abdomen 80 130 60 Urine 2540 2480 1400 Other: Voiding Method Indwelling Catheter Indwelling Catheter Indwelling Catheter # Bowel Movements 1 ABP, PAP, CO, CI - Last Documented Arterial Blood Pressure 99/56 - Exam GENERAL DESCRIPTION: An elderly female lying in bed in no distress RESPIRATORY SYSTEM: Unlabored breathing , decreased breath sounds at bases HEART: S1 S2 regular rate and rhythm , ABDOMEN: Soft , no tenderness EXTREMITIES: Bilateral lower extremity wounds are currently dressed no drainage on the dressing - Labs CBC & Chem 7: 10/22/21 05:45 10/22/21 05:45 Labs: Abnormal Lab Results - Last 24 Hours (Table) 10/21/21 10/21/21 10/21/21 Range/Units 12:09 16:25 17:55 WBC 14.7 H (3.8-10.6) k/uL RBC 2.46 L (3.80-5.40) m/uL Hgb 7.4 L (11.4-16.0) gm/dL Hct 22.6 L (34.0-46.0) % RDW 18.3 H (11.5-15.5) % Sodium (137-145) mmol/L Carbon Dioxide (22-30) mmol/L BUN (7-17) mg/dL Glucose (74-99) mg/dL POC Glucose (mg/dL) 184 H 131 H (75-99) mg/dL Calcium (8.4-10.2) mg/dL Total Protein (6.3-8.2) g/dL Albumin (3.5-5.0) g/dL 10/22/21 10/22/21 10/22/21 Range/Units 00:23 05:45 05:45 WBC 15.6 H (3.8-10.6) k/uL RBC 2.45 L (3.80-5.40) m/uL Hgb 7.3 L (11.4-16.0) gm/dL Hct 22.9 L (34.0-46.0) % RDW 18.1 H (11.5-15.5) % Sodium 136 L (137-145) mmol/L Carbon Dioxide 34 H (22-30) mmol/L BUN 19 H (7-17) mg/dL Glucose 150 H (74-99) mg/dL POC Glucose (mg/dL) 103 H (75-99) mg/dL Calcium 6.7 L (8.4-10.2) mg/dL Total Protein 3.9 L (6.3-8.2) g/dL Albumin 1.6 L (3.5-5.0) g/dL 10/22/21 10/22/21 Range/Units 05:50 11:27 WBC (3.8-10.6) k/uL RBC (3.80-5.40) m/uL Hgb (11.4-16.0) gm/dL Hct (34.0-46.0) % RDW (11.5-15.5) % Sodium (137-145) mmol/L Carbon Dioxide (22-30) mmol/L BUN (7-17) mg/dL Glucose (74-99) mg/dL POC Glucose (mg/dL) 167 H 179 H (75-99) mg/dL Calcium (8.4-10.2) mg/dL Total Protein (6.3-8.2) g/dL Albumin (3.5-5.0) g/dL Assessment and Plan (1) Cellulitis Current Visit: Yes Status: Acute Code(s): L03.90 - CELLULITIS, UNSPECIFIED SNOMED Code(s): 551169555 Plan: 1patient with bilateral lower extremity nonhealing wound and cellulitis seems to be more of a venous stasis ulcers with secondary cellulitis and likely from gram-positive skin pb less likely gram-negative infection in this patient has not seen a physician for 20 years less likelihood of a MRSA infection. 2 patient is status post surgical debridement and deep culture which are currently growing multiple pathogens including Pseudomonas strep 3patient did have acute GI bleed with evidence of perforated and bleeding duodenal ulcer requiring laparotomy, patient is fully clinical improvement and has been extubated, patient to continue with cefepime and Flagyl and Eraxis and monitor clinical course closely Time with Patient: Less than 30
[2021-10-23] MEDS: metroNIDAZOLE-NS PMX 500 MG in SALINE 1 100ML.BAG IVPB SCH ×3 (00:58→17:17)
[2021-10-23] MEDS: CEFEPIME 2 GM in SODIUM CHLORIDE 0.9% 100 ML IVPB SCH ×3 (00:58→17:17)
[2021-10-23] MEDS: INSULIN ASPART (NovoLOG) 100 UNIT/ML VIAL SQ SCH ×4 (00:59→17:27)
[2021-10-23 01:01] LABS: Glucose,Whole Blood 138 mg/dL (75-99)
[2021-10-23 05:59] LABS: Glucose,Whole Blood 143 mg/dL (75-99)
[2021-10-23 06:41] LABS: Anisocytosis Slight; HCT 22.8 % (34.0-46.0); HGB 7.2 gm/dL (11.4-16.0); Hypochromasia Slight; MCH 29.9 pg (25.0-35.0); MCHC 31.7 g/dL (31.0-37.0); MCV 94.3 fL (80.0-100.0); Mean Platelet Volume 7.9; Platelet Count 392 k/uL (150-450); RBC 2.41 m/uL (3.80-5.40); RDW 17.5 % (11.5-15.5); WBC 10.9 k/uL (3.8-10.6)
[2021-10-23 06:45] LABS: ALT 10 U/L (4-34); AST 21 U/L (14-36); African American GFR (CKD) >90 (>60 ml/min/1.73 sqM); Albumin 1.6 g/dL (3.5-5.0); Alkaline Phosphatase 71 U/L (38-126); Anion Gap -1 mmol/L; Blood Urea Nitrogen 20 mg/dL (7-17); Carbon Dioxide 35 mmol/L (22-30); Chloride 100 mmol/L (98-107); Glucose 128 mg/dL (74-99); Magnesium 2.1 mg/dL (1.6-2.3); Non-African American GFR(CKD) 89 (>60 ml/min/1.73 sqM); Phosphorus 3.4 mg/dL (2.5-4.5); Potassium 3.7 mmol/L (3.5-5.1); Sodium 134 mmol/L (137-145); Total Bilirubin 0.4 mg/dL (0.2-1.3); Total Protein 3.9 g/dL (6.3-8.2)
--- NOTE | 2021-10-23 08:05 | XR ---
EXAMINATION TYPE: XR chest 1V portable DATE OF EXAM: 10/23/2021 COMPARISON: X-ray dated 10/22/2021 HISTORY: CHF TECHNIQUE: Single frontal view of the chest is obtained. FINDINGS: Apparent further retraction of the left central venous line with the tip is probably within the midpo rtion of the left innominate vein. Kindly check its position. Interval removal of the NG tube. Improv ed signs of pulmonary edema/CHF. Persistent small left pleural effusion. Questionable left retrocardiac opacity/atelectasis. Unchanged cardiomediastinal silhouette, aortic atherosclerotic calcifications and bony thoracic cage. IMPRESSION: Kindly recheck the position of the left central venous line as described above.
--- NOTE | 2021-10-23 08:46 | P.PN ---
Subjective Progress Note Date: 10/23/[address], doing well. Incision site is c/d/i. No complaints. Off levophed. Continuing cefepime, flagyl, eraxis. Gen: intubated, sedated HEENT: normocephalic, atraumatic, moist mucous membranes Resp: intubated CVS: good distal perfusion x 4, : no SPT, no CVAT, martinez catheter is present MSK: + pitting edema, no clubbing Assessment/Plan: #Acute hypoxic respiratory failure #Acute on Chronic Systolic Heart Failure Exacerbation, EF 40-45% -Pulmonary following, appreciate recs -continue lasix 20mg IV BID -On CT s/p extubation on 10/22, doing well. #Massive upper GI bleeding secondary to bleeding duodenal ulcer #Subacute Stroke -Status post respiratory laparotomy with repair of perforated duodenal ulcer and pyloroplasty by general surgeon on September 16 -Aspirin and Plavix on hold -Timing of ASA or Plavix per surgery -Neurology following #Septic Shock #Toxic Encephalopathy #Bilateral lower extremity cellulitis secondary to nonhealing vascular status ulcers, Necrotic #Acute urinary tract infection on presentation -Status post debridement with deep tissue culture by vascular surgery with wound Cx growing polymicrobial organisms, group A strep, pseudomonas, E coli, MSSA -UCx with E colli -Resume IV cefepime, flagyl, eraxis per ID -Infectious disease following #Type 2 diabetes -SSI aspart q6h #History of subacute CVA -Aspirin and Plavix on hold secondary to above Pt is Full Code DVT PPx on hold due to bleed Objective - Vital Signs Vital signs: Vital Signs Temp 98.2 F 10/23/21 04:00 Pulse 85 10/23/21 07:00 Resp 20 10/23/21 07:00 BP 100/56 10/23/21 07:00 Pulse Ox 93 L 10/23/21 07:00 Intake & Output 10/22/21 10/23/21 10/23/21 18:59 06:59 18:59 Intake Total 1339.192 474.867 Output Total 7195 2850 Balance -1205.808 -2375.133 Weight 91 kg Intake: IV 1250 440 Cefepime 2 gm In Sodium 100 100 Chloride 0.9% 100 ml @ 25 mls/hr IVPB Q12HR [facility] Rx #:[id number] Lactated Ringers 1,000 ml 400 240 @ 20 mls/hr IV .Q24H [facility] Rx#:[id number] Mvi, Adult No.4 with Vit 650 K 10 ml Trace (Conc-1Ml/ Dose) 1 ml Sodium Acetate 30 meq Potassium Acetate 20 meq Magnesium Sulfate gm 1 gm Calcium Gluconate 1 gm In Amino Acid 4.25%-D10w 1,000 ml @ 65 mls/hr IV .BY DURATION [facility] Rx#: [id number] metroNIDAZOLE-NS PMX 500 100 mg In Saline 1 100ml.bag @ 100 mls/hr IVPB [facility] Rx#:[id number] metroNIDAZOLE-NS PMX 500 100 mg In Saline 1 100ml.bag @ 100 mls/hr IVPB Q8HR [facility] Rx#:[id number] Intake, IV Titration 89.192 34.867 Amount Norepinephrine 8 mg In 89.192 34.867 Sodium Chloride 0.9% 250 ml @ 0.2 MCG/KG/MIN 32. 431 mls/hr IV .Q7H58M [facility] Rx#:[id number] Output: Drainage 60 100 Right Upper Abdomen 60 100 Urine 2485 2750 Other: Voiding Method Indwelling Catheter Indwelling Catheter ABP, PAP, CO, CI - Last Documented Arterial Blood Pressure 97/69 - Labs CBC & Chem 7: 10/23/21 05:50 10/23/21 05:50 Labs: Abnormal Lab Results - Last 24 Hours (Table) 10/22/21 10/22/21 10/23/21 Range/Units 11:27 17:44 00:59 WBC (3.8-10.6) k/uL RBC (3.80-5.40) m/uL Hgb (11.4-16.0) gm/dL Hct (34.0-46.0) % RDW (11.5-15.5) % Sodium (137-145) mmol/L Carbon Dioxide (22-30) mmol/L BUN (7-17) mg/dL Glucose (74-99) mg/dL POC Glucose (mg/dL) 179 H 146 H 138 H (75-99) mg/dL Calcium (8.4-10.2) mg/dL Total Protein (6.3-8.2) g/dL Albumin (3.5-5.0) g/dL 10/23/21 10/23/21 10/23/21 Range/Units 05:50 05:50 05:58 WBC 10.9 H (3.8-10.6) k/uL RBC 2.41 L (3.80-5.40) m/uL Hgb 7.2 L (11.4-16.0) gm/dL Hct 22.8 L (34.0-46.0) % RDW 17.5 H (11.5-15.5) % Sodium 134 L (137-145) mmol/L Carbon Dioxide 35 H (22-30) mmol/L BUN 20 H (7-17) mg/dL Glucose 128 H (74-99) mg/dL POC Glucose (mg/dL) 143 H (75-99) mg/dL Calcium 7.0 L (8.4-10.2) mg/dL Total Protein 3.9 L (6.3-8.2) g/dL Albumin 1.6 L (3.5-5.0) g/dL
--- NOTE | 2021-10-23 09:06 | P.PN ---
Subjective Progress Note Date: 10/23/21 Principal diagnosis: Respiratory failure. Patient was reevaluated today on 10/18/2021, remains intubated and mechanically ventilated. She is on assist control rate of 16, while at 400 FiO2 40% PEEP of 5. ABG showed a pO2 of 107 pCO2 39 pH of 7.3. Patient remains on propofol at 55 mcg/kg/m she is also on TPN and she still requiring norepinephrine 0.16 mcg/kg/m. Hemoglobin dropped yesterday, and now she is receiving another unit of packed RBCs. Hoping that her blood pressure would improve after the transfusion, and we'll continue to taper down the norepinephrine. No rectal bleeding, patient does have coffee ground material in the nasogastric tube output. Patient is sedated, however when the propofol was placed on hold, she became extremely agitated, and I recommended that we continue sedating the patient, and she is not quite ready for weaning and extubation at this point yet. Not to mention the patient is sedated requiring norepinephrine for hemodynamic support. We'll continue to try on a daily basis weaning possible off mechanical ventilation. In the meantime we'll continue TPN, continue nutritional support, continue treatment for her ulcer, he is on Protonix, and I plan to start the patient on Protonix 40 mg subcu daily, cleared by surgery for subcu heparin. Chest x-ray showed mild interstitial changes today. Possibly mild interstitial edema. WBC count is down to 37.4 hemoglobin is 6.8 today. Electrolytes are unremarkable except for slightly low potassium of 3.5. ABG showed a pO2 of 107 pCO2 of 39 pH of 7.38. Patient is on 50% FiO2. Cut down to 40% Reevaluated today on 10/19/2021, patient remains intubated, mechanically ventilated, remains norepinephrine dependent, blood pressure is marginal, she by however the dose of norepinephrine is down to 0.08 mcg/kg/m. Her ventilator settings are assist control rate of 1612 volume 400 FiO2 40% and PEEP of 5. ABG showed a pO2 of 93 pCO2 33 pH of 7.49, hence no changes were made in the vent ilator settings. Her leukocytosis is improving. Patient has excellent urine output, remains on Lasix intermittently as she seems to be quite swollen and edematous, patient received significant amount of fluid since admission. She is on Lasix at 20 mg every 12 hours. Patient is receiving TPN at 65 mL per hour. She is on propofol at 50 mcg/kg/m, norepinephrine 0.08 and she is on antibiotics in the form of cefepime and Flagyl and Eraxis. Chest x-ray showed mild interstitial changes. WBC count is 27.3 hemoglobin is 7.6. Basic metabolic profile is unremarkable, potassium is 3.4 Reevaluated today on 10/20/2021, patient remains in the ICU, intubated and mechanically ventilated. She is sedated, she is on propofol at 45 mcg/kg/m. Still requiring norepinephrine at 0.07 mcg/kg/m at one point she was over 0.18 mcg/kg/m. Patient remains on cefepime, Eraxis and Flagyl. Remains on TPN, and she is still receiving lactated Ringer's at 100 mL per hour. Ventilator jenkins the patient is on assist control rate of 16 tidal volume 400 FiO2 40% PEEP of 5 ABG showed a pO2 of 95 pCO2 41 pH of 7.47, FiO2 was cut down to 35%. Chest x- ray is showing mild interstitial edema however the patient has excellent urine output and she is on a maintenance dose of Lasix. And her oxygenation based on that ABG seems to be improving. Her WBC count is improving down to 24.6, hemoglobin 7.6. Electrolytes and renal profile are normal. Progress note dated 10/21/2021. This is a patient was initially admitted back on October 11. She came into the hospital with cellulitis. She came to the intensive care unit on October 15, and was intubated on October 16, respiratory failure severe GI bleeding. She went to the op erating room, on the same day, and had an exploratory laparotomy, repair to Myke also, and pyloroplasty. She remains on mechanical ventilator. She is on the volume assist control, rate 16, tidal volume 400, FiO2 35%, PEEP of 5. Blood gases show pO2 of 95, pCO2 41, and pH is 7.51. Blood gases are consistent with a metabolic alkalosis. She is on norepinephrine at 4 mcg/m, Precedex at 0.1 mcg/kg/h, lactated Ringer's at 100 mL an hour, and TPN at 65 mL an hour. White count 17, hemoglobin 7.3, hematocrit 22.8, platelet count 2 49,000. Sodium 137, potassium 4, chlorides 103, CO2 32, anion gap 2, BUN 23, and creatinine 0.68. Albumin is only 1.5. Microbiologic studies are reviewed. Chest x-ray shows some increased density at the left lung base, and some pulmonary vascular congestion and interstitial lung markings to be more prominent. Progress note dated 10/22/2021. This is a patient who was initially admitted back on October 11. She came into the hospital with cellulitis of the lower extremities. She came to the intensive care unit on October 15, and was intubated on October 16, for respiratory failure, and severe GI bleeding. She went to the operating room on the same day, and had exploratory laparotomy, repair to the duodenal ulcer, and pyloroplasty. Yesterday, the patient was extubated from mechanical ventilator, with reasonable blood gases and reasonable weaning parameters. She remains in the intensive care unit. She is very weak. She's currently on 2 L nasal cannula. She remains on lactated Ringer's at 100 mL an hour, and TPN at 65 mL an hour. The patient's currently on norepinephrine at 2.7 mcg/m. The patient's white count is 15.6, hemoglobin 7.3, hematocrit 22.9, platelet count was normal. Sodium 136, potassium 3.6, chlorides 100, CO2 34, anion gap 2, BUN 19, creatinine 0.66. Albumin is 1.6. Chest x-rays consistent with mild fluid overload/CHF. Progress note dated 10/23/2021. 66-year-old female dated back on October 11. She initially came to the hospital with lower extremity cellulitis. She came to the intensive care unit on October 15, and was intubated on October 16 for respiratory failure and severe GI bleeding. She went to the operating room on the same day had exploratory laparotomy, repair of duodenal ulcer, and pyloroplasty. The patient was extubated on October 21. Currently, she is on 2 L nasal cannula. She's getting lactated Ringer's at 20 mL an hour and TPN at 65 mL an hour norepinephrine has been weaned off. White count 10.9, hemoglobin 7.2, hematocrit 22.8, platelet count 392,000. Sodium 134, potassium 3.7, chlorides 100, CO2 35, BUN 20, creatinine 0.7. Albumin is only 1.6. Brain CT from October 22 shows an evolving large right MCA territory infarct demonstrating interval changes as described. A new tiny acute infarct cannot be excluded by the computed tomography scan. Objective - Vital Signs Vital signs: Vital Signs Temp 98.2 F 10/23/21 04:00 Pulse 85 10/23/21 07:00 Resp 20 10/23/21 07:00 BP 100/56 10/23/21 07:00 Pulse Ox 93 L 10/23/21 07:00 Intake & Output 10/22/21 10/23/21 10/23/21 18:59 06:59 18:59 Intake Total 1339.192 474.867 Output Total 2545 2850 Balance -1205.808 -2375.133 Weight 91 kg Intake: IV 1250 440 Cefepime 2 gm In Sodium 100 100 Chloride 0.9% 100 ml @ 25 mls/hr IVPB Q12HR [facility] Rx #:[id number] Lactated Ringers 1,000 ml 400 240 @ 20 mls/hr IV .Q24H [facility] Rx#:[id number] Mvi, Adult No.4 with Vit 650 K 10 ml Trace (Conc-1Ml/ Dose) 1 ml Sodium Acetate 30 meq Potassium Acetate 20 meq Magnesium Sulfate gm 1 gm Calcium Gluconate 1 gm In Amino Acid 4.25%-D10w 1,000 ml @ 65 mls/hr IV .BY DURATION [facility] Rx#: [id number] metroNIDAZOLE-NS PMX 500 100 mg In Saline 1 100ml.bag @ 100 mls/hr IVPB ONCE [facility] Rx#:[id number] metroNIDAZOLE-NS PMX 500 100 mg In Saline 1 100ml.bag @ 100 mls/hr IVPB Q8HR [facility] Rx#:[id number] Intake, IV Titration 89.192 34.867 Amount Norepinephrine 8 mg In 89.192 34.867 Sodium Chloride 0.9% 250 ml @ 0.2 MCG/KG/MIN 32. 431 mls/hr IV .Q7H58M [facility] Rx#:[id number] Output: Drainage 60 100 Right Upper Abdomen 60 100 Urine 2485 2750 Other: Voiding Method Indwelling Catheter Indwelling Catheter ABP, PAP, CO, CI - Last Documented Arterial Blood Pressure 97/69 - Exam No acute distress, currently on nasal O2. The patient was extubated yesterday. She appears very weak. Saturations are 93-94%. HEENT examination is grossly unremarkable. Neck supple. Full range of motion. No adenopathy thyromegaly or neck vein distention. Cardiovascular examination reveals an irregular rhythm and rate. S1-S2 normal. No S3 or S4. No discernible murmur noted. Heart rate 85 bpm. Lungs reveal scattered rhonchi. Breath sounds equal. No wheezes. No crackles. Saturations are 93-94% on 2 L. Abdomen soft without bowel sounds. Extremities are intact. No cyanosis clubbing or edema. Skin is without rash or lesion. Neurologic examination is unchanged. - Labs CBC & Chem 7: 10/23/21 05:50 10/23/21 05:50 Labs: Abnormal Lab Results - Last 24 Hours (Table) 10/22/21 10/22/21 10/23/21 Range/Units 11:27 17:44 00:59 WBC (3.8-10.6) k/uL RBC (3.80-5.40) m/uL Hgb (11.4-16.0) gm/dL Hct (34.0-46.0) % RDW (11.5-15.5) % Sodium (137-145) mmol/L Carbon Dioxide (22-30) mmol/L BUN (7-17) mg/dL Glucose (74-99) mg/dL POC Glucose (mg/dL) 179 H 146 H 138 H (75-99) mg/dL Calcium (8.4-10.2) mg/dL Total Protein (6.3-8.2) g/dL Albumin (3.5-5.0) g/dL 10/23/21 10/23/21 10/23/21 Range/Units 05:50 05:50 05:58 WBC 10.9 H (3.8-10.6) k/uL RBC 2.41 L (3.80-5.40) m/uL Hgb 7.2 L (11.4-16.0) gm/dL Hct 22.8 L (34.0-46.0) % RDW 17.5 H (11.5-15.5) % Sodium 134 L (137-145) mmol/L Carbon Dioxide 35 H (22-30) mmol/L BUN 20 H (7-17) mg/dL Glucose 128 H (74-99) mg/dL POC Glucose (mg/dL) 143 H (75-99) mg/dL Calcium 7.0 L (8.4-10.2) mg/dL Total Protein 3.9 L (6.3-8.2) g/dL Albumin 1.6 L (3.5-5.0) g/dL Assessment and Plan Assessment: Postoperative respiratory failure, requiring intubation and mechanical ventilation, S/P extubation on 10/21/2021. Postoperative day #7, status post exploratory laparotomy, repair of duodenal ulcer, and pyloroplasty for GI bleed. Massive upper GI bleed, status post surgery. Evolving large right MCA territory infarct. Chronic cellulitis lower extremities. Acute urinary tract infection. Type 2 diabetes mellitus. History of CVA. Toxic/metabolic encephalopathy. Sepsis, with septic shock. Cardiomyopathy with LV dysfunction. Plan: Plan dated 10/21/2021. The patient remains on a small dose of norepinephrine. The patient's also on dexmedetomidine for agitation. Today, we will stop the sedation, and do a daily interruption of sedation, trial. The patient be placed on PSV 5 CPAP of 5. She may or may not be ready for extubation. Weaning parameters will be done. Labs, x-rays, medications are reviewed. She continues on GI and DVT prophylaxis. Labs, x-rays, medications are reviewed. Prognosis is guarded. We will continue to follow and make recommendations where appropriate. Plan dated 10/22/2021. The patient was extubated successfully yesterday, on October 21. The patient is still very weak. She remains on norepinephrine at less than 3 mcg/m. Lactated Ringer's which is running at 100 mL an hour, will be turned down to KVO. The patient does have diffuse edema. I have asked the nurses to go very gentle with her pain medications, and also make sure that she has an incentive spirometer in the room. The patient's overall prognosis remains guarded. Labs x-rays a medications are reviewed. Continue to follow the patient and make recommendations where appropriate. Plan dated 10/23/2021 The patient was seen in evaluated, in room 257. The brain CT from yesterday is reviewed. It does show an evolving right MCA territory infarct. The patient currently is on lactated Ringer's at 20 mL an hour, and TPN at 65 mL an hour. Norepinephrine has been weaned down. She remains on 2 L nasal cannula. Labs, x-rays, and medications are reviewed. Prognosis is certainly guarded. We will continue to follow the patient make recommendations were appropriate. Time with Patient: Greater than 30
[2021-10-23] MEDS: ANIDULAFUNGIN 100 MG in SODIUM CHLORIDE 0.9% 100 ML IVPB SCH (09:37)
[2021-10-23] MEDS ORDERED: POTASSIUM CHLORIDE 20 MEQ in WATER FOR INJECTION 1 100ML.BAG IVPB ONE (10:00)
[2021-10-23 11:42] LABS: Glucose,Whole Blood 137 mg/dL (75-99)
--- NOTE | 2021-10-23 11:59 | P.PN ---
Subjective Progress Note Date: 10/23/21 The patient is seen at bedside and per nurse is doing better. Patient is feeling better. Objective - Vital Signs Vital signs: Vital Signs Temp 98.2 F 10/23/21 04:00 Pulse 85 10/23/21 07:00 Resp 20 10/23/21 07:00 BP 100/56 10/23/21 07:00 Pulse Ox 93 L 10/23/21 07:00 Intake & Output 10/22/21 10/23/21 10/23/21 18:59 06:59 18:59 Intake Total 1339.192 474.867 85 Output Total 2545 2850 250 Balance -1205.808 -2375.133 -165 Weight 91 kg 91 kg Intake: IV 1250 440 Cefepime 2 gm In Sodium 100 100 Chloride 0.9% 100 ml @ 25 mls/hr IVPB Q12HR [facility] Rx #:[id number] Lactated Ringers 1,000 ml 400 240 @ 20 mls/hr IV .Q24H [facility] Rx#:[id number] Mvi, Adult No.4 with Vit 650 K 10 ml Trace (Conc-1Ml/ Dose) 1 ml Sodium Acetate 30 meq Potassium Acetate 20 meq Magnesium Sulfate gm 1 gm Calcium Gluconate 1 gm In Amino Acid 4.25%-D10w 1,000 ml @ 65 mls/hr IV .BY DURATION [facility] Rx#: [id number] metroNIDAZOLE-NS PMX 500 100 mg In Saline 1 100ml.bag @ 100 mls/hr IVPB ONCE [facility] Rx#:[id number] metroNIDAZOLE-NS PMX 500 100 mg In Saline 1 100ml.bag @ 100 mls/hr IVPB Q8HR [facility] Rx#:[id number] Intake, IV Titration 89.192 34.867 85 Amount Lactated Ringers 1,000 ml 20 @ 20 mls/hr IV .Q24H [facility] Rx#:[id number] Norepinephrine 8 mg In 89.192 34.867 Sodium Chloride 0.9% 250 ml @ 0.2 MCG/KG/MIN 32. 431 mls/hr IV .Q7H58M [facility] Rx#:[id number] Sodium Chloride 2.5MEQ/ml 65 Vial 30 meq Sodium Acetate 10 meq Potassium Chloride 40 meq Calcium Gluconate 1.5 gm Magnesium Sulfate gm 2 gm Potassium Phosphate 15 mmol In Amino Acid 4.25%- D10w 1,000 ml @ 65 mls/hr IV .BY DURATION [facility] Rx#: [id number] Output: Drainage 60 100 Right Upper Abdomen 60 100 Urine 2485 2750 250 Other: Voiding Method Indwelling Catheter Indwelling Catheter ABP, PAP, CO, CI - Last Documented Arterial Blood Pressure 97/69 - Exam GENERAL: The patient is lying in bed and is not in acute distress. NEUROLOGICAL: Limited because of cooperation. Higher mental function: The patient is mildly drowsy but is awakeable to voice. She is oriented to self, place. She correctly states current month but states the year is 1921. She is following simple commands. No aphasia. Cranial nerves: The pupils are round, equal and reactive to light. Visual florence appears normal to confrontation throughout.. EOM intact and no nystagmus. No dysarthria. Could not assess.No facial weakness. Motor: The strength is moving all extremities above gravity. Sensation: Normal to touch. SOME OF THE WORK-UP: * 2-D echocardiogram revealed inferoseptal hypokinesis or aortic sclerosis with mild aortic stenosis and mild mitral and mild to moderate tricuspid regurgitation. EF is 40-45%. Grade 1 diastolic dysfunction. Mid to basal inferoseptal is hypokinetic. * Carotid Doppler revealed no significant common or internal carotid artery stenosis. * Lipid panel cholesterol 159, LDL 101, HDL 28.3 and triglycerides 146. Patient's hemoglobin A1c 8.0. TSH slightly low 0.222 with normal free T4 1 0.63. * UA shows large amount of leukocyte Estrace. Urine growing E. coli. - Labs CBC & Chem 7: 10/23/21 05:50 10/23/21 05:50 Labs: Abnormal Lab Results - Last 24 Hours (Table) 10/22/21 10/23/21 10/23/21 Range/Units 17:44 00:59 05:50 WBC (3.8-10.6) k/uL RBC (3.80-5.40) m/uL Hgb (11.4-16.0) gm/dL Hct (34.0-46.0) % RDW (11.5-15.5) % Sodium 134 L (137-145) mmol/L Carbon Dioxide 35 H (22-30) mmol/L BUN 20 H (7-17) mg/dL Glucose 128 H (74-99) mg/dL POC Glucose (mg/dL) 146 H 138 H (75-99) mg/dL Calcium 7.0 L (8.4-10.2) mg/dL Total Protein 3.9 L (6.3-8.2) g/dL Albumin 1.6 L (3.5-5.0) g/dL 10/23/21 10/23/21 10/23/21 Range/Units 05:50 05:58 11:39 WBC 10.9 H (3.8-10.6) k/uL RBC 2.41 L (3.80-5.40) m/uL Hgb 7.2 L (11.4-16.0) gm/dL Hct 22.8 L (34.0-46.0) % RDW 17.5 H (11.5-15.5) % Sodium (137-145) mmol/L Carbon Dioxide (22-30) mmol/L BUN (7-17) mg/dL Glucose (74-99) mg/dL POC Glucose (mg/dL) 143 H 137 H (75-99) mg/dL Calcium (8.4-10.2) mg/dL Total Protein (6.3-8.2) g/dL Albumin (3.5-5.0) g/dL Assessment and Plan Assessment: 1. Large, subacute, right cerebral hemispheric infarct, involving the right parietal temporal region-patient does have some left-sided visual field deficits and left rai-sensory neglect---improving. 2. Toxic encephalopathy/delirium secondary to infection--improving 3. Acute UTI. Urine cultures growing E. coli. 4. New onset diabetes 5. Tobacco use 6. Weeping ulcers of the lower extremities, status post debridement 7. Status post exploratory laparotomy with repair of perforated duodenal ulcer, control of bleeding and pyloroplasty 10/16/2021. Plan: * Antiplatelet medications held because of GI bleed. GI and surgical input appreciated. If safe can be started on ASA 81mg or Plavix 75mg (avoid dual because of GI bleed). Patient on Protonix 40 mg IV twice a day. Continue Lipitor 40 mg daily. * Repeat CT head on 10/22/21 to see extend of patient's stroke: Was reported as a volunteer large right MCA territory infarct M starting interval change. A new tiny acute infarct cannot be excluded by the CT. I personally reviewed the CT of the head and I don't see any new acute or subacute ischemia I do agree there is involving the of the right MCA which is expected. Clinically the patient is improving so I discussed this with the patient's and the is lungs the patient clinically improves that is a good sign. * Patient apparently has been declining MRA of the brain that was recommended on the last visit. It was ordered by Dr. Andrew. I will disregard MRA since will not exchange trouble shooter. * PT, OT and speech therapy are on board. * continue Lipitor 40 mg daily. Patient's hemoglobin A1c 8.0. Recommend optimize control of diabetes to target A1c <7.0. * ID following. * Will defer the rest of medical management to the primary team and ICU team. * For DVT prophylaxis on Lovenox. The plan is discussed with the patient's nurse. Devante Newman M.D. Neuro-Hospitalist Time with Patient: Less than 30
--- NOTE | 2021-10-23 12:07 | P.PN ---
Subjective Progress Note Date: 10/23/21 CHIEF COMPLAINT: Duodenal ulcer HISTORY OF PRESENT ILLNESS: Patient is in the ICU. She is postop day #7 status post Exploratory laparotomy with repair of perforated duodenal ulcer and control of bleeding, pyloroplasty. Patient had a small BM was mostly brownish in color. She is lying comfortably. Her pain is controlled. Afebrile. She is on 2 L satting at 93%. NG tube did come out through the night. No nausea or vomiting reported. MARIA LUISA drain with 100ml serous output. WBC is down from 15.6-10.9 hemoglobin 7.2 sodium 134 potassium 3.7 creatinine 0.70 PHYSICAL EXAM: VITAL SIGNS: Reviewed. GENERAL: Well-developed in no acute distress. HEENT: No sclera icterus. Extraocular movements grossly intact. Moist buccal mucosa. Head is atraumatic, normocephalic. ABDOMEN: Soft. nondistended. Incision site does have some old blood noted otherwise clean dry and intact. ASSESSMENT: 1. Duodenal ulcer with perforation and active bleeding status post Exploratory laparotomy with repair of perforated duodenal ulcer and control of bleeding, pyloroplasty. PLAN: -Keep patient nothing by mouth -Continue PPI -Continue to monitor hemoglobin -Antibiotics per ID service -Continue TPN for nutrition support -Continue ICU management -Continue supportive care -DVT prophylaxis Lovenox Physician Production Lead note has been reviewed by physician. Signing provider agrees with the documented findings, assessment, and plan of care. I have personally seen and examined the patient, reviewed the [employer] /PAs history, exam and MDM and agree with the assessment and plan as written. Based on total visit time, I have performed more than 50% of the visit. As above: Patient is confused today. Does not have much discomfort. Nasogastric tube fell out yesterday. This was left out. We'll perform bedside swallow evaluation. Keep nothing by mouth for now. Objective - Vital Signs Vital signs: Vital Signs Temp 98.2 F 10/23/21 04:00 Pulse 85 10/23/21 07:00 Resp 20 10/23/21 07:00 BP 100/56 10/23/21 07:00 Pulse Ox 93 L 10/23/21 07:00 Intake & Output 10/22/21 10/23/21 10/23/21 18:59 06:59 18:59 Intake Total 1339.192 474.867 85 Output Total 2545 2850 250 Balance -1205.808 -2375.133 -165 Weight 91 kg 91 kg Intake: IV 1250 440 Cefepime 2 gm In Sodium 100 100 Chloride 0.9% 100 ml @ 25 mls/hr IVPB Q12HR [facility] Rx #:[id number] Lactated Ringers 1,000 ml 400 240 @ 20 mls/hr IV .Q24H [facility] Rx#:[id number] Mvi, Adult No.4 with Vit 650 K 10 ml Trace (Conc-1Ml/ Dose) 1 ml Sodium Acetate 30 meq Potassium Acetate 20 meq Magnesium Sulfate gm 1 gm Calcium Gluconate 1 gm In Amino Acid 4.25%-D10w 1,000 ml @ 65 mls/hr IV .BY DURATION [facility] Rx#: [id number] metroNIDAZOLE-NS PMX 500 100 mg In Saline 1 100ml.bag @ 100 mls/hr IVPB ONCE [facility] Rx#:[id number] metroNIDAZOLE-NS PMX 500 100 mg In Saline 1 100ml.bag @ 100 mls/hr IVPB Q8HR [facility] Rx#:[id number] Intake, IV Titration 89.192 34.867 85 Amount Lactated Ringers 1,000 ml 20 @ 20 mls/hr IV .Q24H [facility] Rx#:[id number] Norepinephrine 8 mg In 89.192 34.867 Sodium Chloride 0.9% 250 ml @ 0.2 MCG/KG/MIN 32. 431 mls/hr IV .Q7H58M [facility] Rx#:[id number] Sodium Chloride 2.5MEQ/ml 65 Vial 30 meq Sodium Acetate 10 meq Potassium Chloride 40 meq Calcium Gluconate 1.5 gm Magnesium Sulfate gm 2 gm Potassium Phosphate 15 mmol In Amino Acid 4.25%- D10w 1,000 ml @ 65 mls/hr IV .BY DURATION [facility] Rx#: [id number] Output: Drainage 60 100 Right Upper Abdomen 60 100 Urine 2485 2750 250 Other: Voiding Method Indwelling Catheter Indwelling Catheter ABP, PAP, CO, CI - Last Documented Arterial Blood Pressure 97/69 - Labs CBC & Chem 7: 10/23/21 05:50 10/23/21 05:50 Labs: Abnormal Lab Results - Last 24 Hours (Table) 10/22/21 10/23/21 10/23/21 Range/Units 17:44 00:59 05:50 WBC (3.8-10.6) k/uL RBC (3.80-5.40) m/uL Hgb (11.4-16.0) gm/dL Hct (34.0-46.0) % RDW (11.5-15.5) % Sodium 134 L (137-145) mmol/L Carbon Dioxide 35 H (22-30) mmol/L BUN 20 H (7-17) mg/dL Glucose 128 H (74-99) mg/dL POC Glucose (mg/dL) 146 H 138 H (75-99) mg/dL Calcium 7.0 L (8.4-10.2) mg/dL Total Protein 3.9 L (6.3-8.2) g/dL Albumin 1.6 L (3.5-5.0) g/dL 10/23/21 10/23/21 10/23/21 Range/Units 05:50 05:58 11:39 WBC 10.9 H (3.8-10.6) k/uL RBC 2.41 L (3.80-5.40) m/uL Hgb 7.2 L (11.4-16.0) gm/dL Hct 22.8 L (34.0-46.0) % RDW 17.5 H (11.5-15.5) % Sodium (137-145) mmol/L Carbon Dioxide (22-30) mmol/L BUN (7-17) mg/dL Glucose (74-99) mg/dL POC Glucose (mg/dL) 143 H 137 H (75-99) mg/dL Calcium (8.4-10.2) mg/dL Total Protein (6.3-8.2) g/dL Albumin (3.5-5.0) g/dL
[2021-10-23] MEDS: ATORVASTATIN 40 MG TAB PO SCH (12:16)
[2021-10-23] MEDS: GABAPENTIN 100 MG CAP PO SCH ×3 (12:17→20:31)
[2021-10-23] MEDS: ENOXAPARIN 40 MG/0.4 ML SYRINGE SQ SCH (12:22)
[2021-10-23] MEDS: FUROSEMIDE 10 MG/ML 2 ML VIAL IV SCH ×2 (12:23→20:50)
[2021-10-23] MEDS: PANTOPRAZOLE 40 MG/10 ML VIAL IVP SCH ×2 (12:23→20:49)
[2021-10-23] MEDS: 1: MVI, ADULT NO.4 WITH VIT K 10 ML, TRACE (CONC-1ML/DOSE) 1 ML, SODIUM CHLORIDE 2.5MEQ/ IV SCH ×9 (12:46)
[2021-10-23] MEDS: HYDROmorphone 1 MG/ML 1 ML SYRINGE IVP PRN (13:14)
[2021-10-23] MEDS: NOREPINEPHRINE 8 MG in SODIUM CHLORIDE 0.9% 250 ML IV SCH ×2 (13:19→17:12)
[2021-10-23 17:20] LABS: Glucose,Whole Blood 111 mg/dL (75-99)
[2021-10-24 00:28] LABS: Glucose,Whole Blood 110 mg/dL (75-99)
[2021-10-24] MEDS: NOREPINEPHRINE 8 MG in SODIUM CHLORIDE 0.9% 250 ML IV SCH ×2 (00:52→08:37)
[2021-10-24] MEDS: INSULIN ASPART (NovoLOG) 100 UNIT/ML VIAL SQ SCH ×4 (00:52→19:03)
[2021-10-24] MEDS: HYDROmorphone 1 MG/ML 1 ML SYRINGE IVP PRN ×4 (00:55→21:14)
[2021-10-24] MEDS: CEFEPIME 2 GM in SODIUM CHLORIDE 0.9% 100 ML IVPB SCH ×3 (00:55→15:26)
[2021-10-24] MEDS: metroNIDAZOLE-NS PMX 500 MG in SALINE 1 100ML.BAG IVPB SCH ×3 (00:55→15:26)
[2021-10-24] MEDS: 1: MVI, ADULT NO.4 WITH VIT K 10 ML, TRACE (CONC-1ML/DOSE) 1 ML, SODIUM CHLORIDE 2.5MEQ/ IV SCH ×25 (02:00→18:08)
[2021-10-24 06:25] LABS: Glucose,Whole Blood 178 mg/dL (75-99)
--- NOTE | 2021-10-24 07:05 | P.PN ---
Subjective Progress Note Date: 10/23/21 Principal diagnosis: Bilateral lower extremity venous stasis ulcer and cellulitis Patient is a 66-year-old female who has not seen a physician in 20 years presented to the hospital with significant bilateral lower extremity necrotic wound and secondary cellulitis in this patient who is status post surgical debridement of these wounds in the OR on 10/13/2021. Patient did have a GI bleed could not be controlled through the EGD patient subsequently taken to the OR and status post laparotomy for a bleeding and perforated duodenal ulcer disease on 10/16/2021 On today's evaluation that is 10/23/2021, the patient remains to be afebrile, the patient is hemodynamically stable and off the pressor support , the patient is breathing comfortably on nasal cannula Oxygen, patient did not answer any question however no concern per her at the bedside Objective - Vital Signs Vital signs: Vital Signs Temp 98.2 F 10/23/21 12:00 Pulse 81 10/23/21 12:00 Resp 23 10/23/21 12:00 BP 119/66 10/23/21 12:00 Pulse Ox 93 L 10/23/21 12:00 Intake & Output 10/22/21 10/23/21 10/23/21 18:59 06:59 18:59 Intake Total 1339.192 474.867 940 Output Total 2545 2850 775 Balance -1205.808 -2375.133 165 Weight 91 kg 91 kg Intake: IV 1250 440 855 0.9 Sodium Chloride 100 Anidulafungin 100 mg In 100 Sodium Chloride 0.9% 100 ml @ 84 mls/hr IVPB DAILY [facility] Rx#:[id number] Cefepime 2 gm In Sodium 100 100 Chloride 0.9% 100 ml @ 25 mls/hr IVPB Q12HR [facility] Rx #:[id number] Cefepime 2 gm In Sodium 100 Chloride 0.9% 100 ml @ 25 mls/hr IVPB Q8HR [facility] Rx# :[id number] Lactated Ringers 1,000 ml 400 240 @ 20 mls/hr IV .Q24H [facility] Rx#:[id number] Mvi, Adult No.4 with Vit 650 205 K 10 ml Trace (Conc-1Ml/ Dose) 1 ml Sodium Acetate 30 meq Potassium Acetate 20 meq Magnesium Sulfate gm 1 gm Calcium Gluconate 1 gm In Amino Acid 4.25%-D10w 1,000 ml @ 65 mls/hr IV .BY DURATION [facility] Rx#: [id number] Mvi, Adult No.4 with Vit 75 K 10 ml Trace (Conc-1Ml/ Dose) 1 ml Sodium Chloride 2.5MEQ/ml Vial 30 meq Sodium Acetate 10 meq Potassium Chloride 40 meq Calcium Gluconate 1. 5 gm Magnesium Sulfate gm 2 gm Potassium Phosphate 15 mmol In Amino Acid 4. 25%-D10w 1,000 ml @ 65 mls/hr IV .BY DURATION [facility] Rx#:[id number] Mvi, Adult No.4 with Vit 75 K 10 ml Trace (Conc-1Ml/ Dose) 1 ml Sodium Chloride 2.5MEQ/ml Vial 40 meq Potassium Chloride 40 meq Calcium Gluconate 1.5 gm Magnesium Sulfate gm 2 gm Potassium Phosphate 15 mmol In Amino Acids 5 %/Dextrose 20 % 1,000 ml @ 75 mls/hr IV .BY DURATION [facility] Rx#: [id number] Potassium Chloride 20 meq 100 In Water For Injection 1 100ml.bag @ 50 mls/hr IVPB ONCE ONE Rx#: [id number] metroNIDAZOLE-NS PMX 500 100 mg In Saline 1 100ml.bag @ 100 mls/hr IVPB ONCE STA Rx#:[id number] metroNIDAZOLE-NS PMX 500 100 100 mg In Saline 1 100ml.bag @ 100 mls/hr IVPB Q8HR [facility] Rx#:[id number] Intake, IV Titration 89.192 34.867 85 Amount Lactated Ringers 1,000 ml 20 @ 20 mls/hr IV .Q24H [facility] Rx#:[id number] Norepinephrine 8 mg In 89.192 34.867 Sodium Chloride 0.9% 250 ml @ 0.2 MCG/KG/MIN 32. 431 mls/hr IV .Q7H58M [facility] Rx#:[id number] Sodium Chloride 2.5MEQ/ml 65 Vial 30 meq Sodium Acetate 10 meq Potassium Chloride 40 meq Calcium Gluconate 1.5 gm Magnesium Sulfate gm 2 gm Potassium Phosphate 15 mmol In Amino Acid 4.25%- D10w 1,000 ml @ 65 mls/hr IV .BY DURATION [facility] Rx#: [id number] Output: Drainage 60 100 Right Upper Abdomen 60 100 Urine 2485 7100 775 Other: Voiding Method Indwelling Catheter Indwelling Catheter ABP, PAP, CO, CI - Last Documented Arterial Blood Pressure 97/69 - Exam GENERAL DESCRIPTION: An elderly female lying in bed in no distress RESPIRATORY SYSTEM: Unlabored breathing , decreased breath sounds at bases HEART: S1 S2 regular rate and rhythm , ABDOMEN: Soft , no tenderness EXTREMITIES: Bilateral lower extremity wounds are currently dressed no drainage on the dressing - Labs CBC & Chem 7: 10/23/21 05:50 10/23/21 05:50 Labs: Abnormal Lab Results - Last 24 Hours (Table) 10/22/21 10/23/21 10/23/21 Range/Units 17:44 00:59 05:50 WBC (3.8-10.6) k/uL RBC (3.80-5.40) m/uL Hgb (11.4-16.0) gm/dL Hct (34.0-46.0) % RDW (11.5-15.5) % Sodium 134 L (137-145) mmol/L Carbon Dioxide 35 H (22-30) mmol/L BUN 20 H (7-17) mg/dL Glucose 128 H (74-99) mg/dL POC Glucose (mg/dL) 146 H 138 H (75-99) mg/dL Calcium 7.0 L (8.4-10.2) mg/dL Total Protein 3.9 L (6.3-8.2) g/dL Albumin 1.6 L (3.5-5.0) g/dL 10/23/21 10/23/21 10/23/21 Range/Units 05:50 05:58 11:39 WBC 10.9 H (3.8-10.6) k/uL RBC 2.41 L (3.80-5.40) m/uL Hgb 7.2 L (11.4-16.0) gm/dL Hct 22.8 L (34.0-46.0) % RDW 17.5 H (11.5-15.5) % Sodium (137-145) mmol/L Carbon Dioxide (22-30) mmol/L BUN (7-17) mg/dL Glucose (74-99) mg/dL POC Glucose (mg/dL) 143 H 137 H (75-99) mg/dL Calcium (8.4-10.2) mg/dL Total Protein (6.3-8.2) g/dL Albumin (3.5-5.0) g/dL Assessment and Plan (1) Cellulitis Current Visit: Yes Status: Acute Code(s): L03.90 - CELLULITIS, UNSPECIFIED SNOMED Code(s): 031622964 Plan: 1patient with bilateral lower extremity nonhealing wound and cellulitis seems to be more of a venous stasis ulcers with secondary cellulitis and likely from gram-positive skin pb less likely gram-negative infection in this patient has not seen a physician for 20 years less likelihood of a MRSA infection. 2 patient is status post surgical debridement and deep culture which are currently growing multiple pathogens including Pseudomonas strep 3patient did have acute GI bleed with evidence of perforated and bleeding duodenal ulcer requiring laparotomy, patient did have clinical improvement and has been extubated, patient white count is trending down, patient to continue with cefepime and Flagyl and Eraxis and monitor clinical course closely Time with Patient: Less than 30
[2021-10-24 08:28] LABS: Anisocytosis Slight; HCT 22.5 % (34.0-46.0); Hypochromasia Slight; MCH 29.4 pg (25.0-35.0); MCHC 30.9 g/dL (31.0-37.0); MCV 95.1 fL (80.0-100.0); Macrocytosis Slight; Mean Platelet Volume 7.6; Platelet Count 461 k/uL (150-450); RBC 2.37 m/uL (3.80-5.40); RDW 17.9 % (11.5-15.5); WBC 7.4 k/uL (3.8-10.6)
[2021-10-24 08:55] LABS: ALT 10 U/L (4-34); AST 25 U/L (14-36); African American GFR (CKD) >90 (>60 ml/min/1.73 sqM); Albumin 1.7 g/dL (3.5-5.0); Alkaline Phosphatase 72 U/L (38-126); Anion Gap 5 mmol/L; Blood Urea Nitrogen 22 mg/dL (7-17); Calcium 7.1 mg/dL (8.4-10.2); Carbon Dioxide 29 mmol/L (22-30); Chloride 101 mmol/L (98-107); Glucose 156 mg/dL (74-99); Magnesium 2.2 mg/dL (1.6-2.3); Non-African American GFR(CKD) 90 (>60 ml/min/1.73 sqM); Phosphorus 3.3 mg/dL (2.5-4.5); Potassium 4.1 mmol/L (3.5-5.1); Sodium 135 mmol/L (137-145); Total Bilirubin 0.4 mg/dL (0.2-1.3); Total Protein 4.2 g/dL (6.3-8.2)
[2021-10-24] MEDS: PANTOPRAZOLE 40 MG/10 ML VIAL IVP SCH ×2 (09:17→21:14)
[2021-10-24] MEDS: FUROSEMIDE 10 MG/ML 2 ML VIAL IV SCH ×2 (09:17→21:14)
[2021-10-24] MEDS: ANIDULAFUNGIN 100 MG in SODIUM CHLORIDE 0.9% 100 ML IVPB SCH (09:17)
[2021-10-24] MEDS: ENOXAPARIN 40 MG/0.4 ML SYRINGE SQ SCH (09:17)
[2021-10-24] MEDS: GABAPENTIN 100 MG CAP PO SCH ×3 (09:18→21:12)
[2021-10-24] MEDS: ATORVASTATIN 40 MG TAB PO SCH (09:18)
--- NOTE | 2021-10-24 09:55 | PN ---
PROGRESS NOTE A 66-year-old female, she has history of chronic wound both lower extremity. The patient went for extensive debridement today and she is more alert. We have changed the dressing of the leg. The wound. PLAN: We will continue with the excess silver which should be changed every 48 hours with continue with IV antibiotics. MMODL / OSORION: [id number] /
--- NOTE | 2021-10-24 10:08 | P.PN ---
Subjective Progress Note Date: 10/24/21 Principal diagnosis: Respiratory failure. Patient was reevaluated today on 10/18/2021, remains intubated and mechanically ventilated. She is on assist control rate of 16, while at 400 FiO2 40% PEEP of 5. ABG showed a pO2 of 107 pCO2 39 pH of 7.3. Patient remains on propofol at 55 mcg/kg/m she is also on TPN and she still requiring norepinephrine 0.16 mcg/kg/m. Hemoglobin dropped yesterday, and now she is receiving another unit of packed RBCs. Hoping that her blood pressure would improve after the transfusion, and we'll continue to taper down the norepinephrine. No rectal bleeding, patient does have coffee ground material in the nasogastric tube output. Patient is sedated, however when the propofol was placed on hold, she became extremely agitated, and I recommended that we continue sedating the patient, and she is not quite ready for weaning and extubation at this point yet. Not to mention the patient is sedated requiring norepinephrine for hemodynamic support. We'll continue to try on a daily basis weaning possible off mechanical ventilation. In the meantime we'll continue TPN, continue nutritional support, continue treatment for her ulcer, he is on Protonix, and I plan to start the patient on Protonix 40 mg subcu daily, cleared by surgery for subcu heparin. Chest x-ray showed mild interstitial changes today. Possibly mild interstitial edema. WBC count is down to 37.4 hemoglobin is 6.8 today. Electrolytes are unremarkable except for slightly low potassium of 3.5. ABG showed a pO2 of 107 pCO2 of 39 pH of 7.38. Patient is on 50% FiO2. Cut down to 40% Reevaluated today on 10/19/2021, patient remains intubated, mechanically ventilated, remains norepinephrine dependent, blood pressure is marginal, she by however the dose of norepinephrine is down to 0.08 mcg/kg/m. Her ventilator settings are assist control rate of 1612 volume 400 FiO2 40% and PEEP of 5. ABG showed a pO2 of 93 pCO2 33 pH of 7.49, hence no changes were made in the vent ilator settings. Her leukocytosis is improving. Patient has excellent urine output, remains on Lasix intermittently as she seems to be quite swollen and edematous, patient received significant amount of fluid since admission. She is on Lasix at 20 mg every 12 hours. Patient is receiving TPN at 65 mL per hour. She is on propofol at 50 mcg/kg/m, norepinephrine 0.08 and she is on antibiotics in the form of cefepime and Flagyl and Eraxis. Chest x-ray showed mild interstitial changes. WBC count is 27.3 hemoglobin is 7.6. Basic metabolic profile is unremarkable, potassium is 3.4 Reevaluated today on 10/20/2021, patient remains in the ICU, intubated and mechanically ventilated. She is sedated, she is on propofol at 45 mcg/kg/m. Still requiring norepinephrine at 0.07 mcg/kg/m at one point she was over 0.18 mcg/kg/m. Patient remains on cefepime, Eraxis and Flagyl. Remains on TPN, and she is still receiving lactated Ringer's at 100 mL per hour. Ventilator jenkins the patient is on assist control rate of 16 tidal volume 400 FiO2 40% PEEP of 5 ABG showed a pO2 of 95 pCO2 41 pH of 7.47, FiO2 was cut down to 35%. Chest x- ray is showing mild interstitial edema however the patient has excellent urine output and she is on a maintenance dose of Lasix. And her oxygenation based on that ABG seems to be improving. Her WBC count is improving down to 24.6, hemoglobin 7.6. Electrolytes and renal profile are normal. Progress note dated 10/21/2021. This is a patient was initially admitted back on October 11. She came into the hospital with cellulitis. She came to the intensive care unit on October 15, and was intubated on October 16, respiratory failure severe GI bleeding. She went to the op erating room, on the same day, and had an exploratory laparotomy, repair to Myke also, and pyloroplasty. She remains on mechanical ventilator. She is on the volume assist control, rate 16, tidal volume 400, FiO2 35%, PEEP of 5. Blood gases show pO2 of 95, pCO2 41, and pH is 7.51. Blood gases are consistent with a metabolic alkalosis. She is on norepinephrine at 4 mcg/m, Precedex at 0.1 mcg/kg/h, lactated Ringer's at 100 mL an hour, and TPN at 65 mL an hour. White count 17, hemoglobin 7.3, hematocrit 22.8, platelet count 2 49,000. Sodium 137, potassium 4, chlorides 103, CO2 32, anion gap 2, BUN 23, and creatinine 0.68. Albumin is only 1.5. Microbiologic studies are reviewed. Chest x-ray shows some increased density at the left lung base, and some pulmonary vascular congestion and interstitial lung markings to be more prominent. Progress note dated 10/22/2021. This is a patient who was initially admitted back on October 11. She came into the hospital with cellulitis of the lower extremities. She came to the intensive care unit on October 15, and was intubated on October 16, for respiratory failure, and severe GI bleeding. She went to the operating room on the same day, and had exploratory laparotomy, repair to the duodenal ulcer, and pyloroplasty. Yesterday, the patient was extubated from mechanical ventilator, with reasonable blood gases and reasonable weaning parameters. She remains in the intensive care unit. She is very weak. She's currently on 2 L nasal cannula. She remains on lactated Ringer's at 100 mL an hour, and TPN at 65 mL an hour. The patient's currently on norepinephrine at 2.7 mcg/m. The patient's white count is 15.6, hemoglobin 7.3, hematocrit 22.9, platelet count was normal. Sodium 136, potassium 3.6, chlorides 100, CO2 34, anion gap 2, BUN 19, creatinine 0.66. Albumin is 1.6. Chest x-rays consistent with mild fluid overload/CHF. Progress note dated 10/23/2021. 66-year-old female dated back on October 11. She initially came to the hospital with lower extremity cellulitis. She came to the intensive care unit on October 15, and was intubated on October 16 for respiratory failure and severe GI bleeding. She went to the operating room on the same day had exploratory laparotomy, repair of duodenal ulcer, and pyloroplasty. The patient was extubated on October 21. Currently, she is on 2 L nasal cannula. She's getting lactated Ringer's at 20 mL an hour and TPN at 65 mL an hour norepinephrine has been weaned off. White count 10.9, hemoglobin 7.2, hematocrit 22.8, platelet count 392,000. Sodium 134, potassium 3.7, chlorides 100, CO2 35, BUN 20, creatinine 0.7. Albumin is only 1.6. Brain CT from October 22 shows an evolving large right MCA territory infarct demonstrating interval changes as described. A new tiny acute infarct cannot be excluded by the computed tomography scan. Progress note dated 10/24/2021. 66-year-old female, admitted back on October 11. She initially came to the hospital with lower extremity cellulitis. She came to the intensive care unit on October 15, and was intubated on October 16, for respiratory failure and severe GI bleeding. She went to the operating room on the same day, and had an exploratory laparotomy, repair of duodenal ulcer, and pyloroplasty. She was extubated successfully, on 10/21/2021. Currently, she is on 2 L nasal cannula. She's getting TPN at 67 mL an hour, and saline at 20 mL an hour. She is taking clear liquids by mouth. She remains on Flagyl, Eraxis, and cefepime. Brain CT from October 22 shows an evolving large right MCA territory infarct. White count 7.4, hemoglobin 7, hematocrit 22.5, and platelet count 461,000. Sodium 135, potassium 4.1, chlorides 101, CO2 29, BUN 22, creatinine 0.69. Objective - Vital Signs Vital signs: Vital Signs Temp 98.2 F 10/24/21 08:00 Pulse 89 10/24/21 09:00 Resp 16 10/24/21 09:00 BP 112/63 10/24/21 09:00 Pulse Ox 94 L 10/24/21 09:00 Intake & Output 10/23/21 10/24/21 10/24/21 18:59 06:59 18:59 Intake Total 2582 1283 Output Total 2099 2055 Balance 482 -772 Weight 91 kg 90 kg Intake: IV 1425 1283 0.9 Sodium Chloride 220 183 Anidulafungin 100 mg In 100 Sodium Chloride 0.9% 100 ml @ 84 mls/hr IVPB DAILY [facility] Rx#:[id number] Cefepime 2 gm In Sodium 100 100 Chloride 0.9% 100 ml @ 25 mls/hr IVPB Q8HR [facility] Rx# :[id number] Mvi, Adult No.4 with Vit 205 K 10 ml Trace (Conc-1Ml/ Dose) 1 ml Sodium Acetate 30 meq Potassium Acetate 20 meq Magnesium Sulfate gm 1 gm Calcium Gluconate 1 gm In Amino Acid 4.25%-D10w 1,000 ml @ 65 mls/hr IV .BY DURATION [facility] Rx#: [id number] Mvi, Adult No.4 with Vit 75 K 10 ml Trace (Conc-1Ml/ Dose) 1 ml Sodium Chloride 2.5MEQ/ml Vial 30 meq Sodium Acetate 10 meq Potassium Chloride 40 meq Calcium Gluconate 1. 5 gm Magnesium Sulfate gm 2 gm Potassium Phosphate 15 mmol In Amino Acid 4. 25%-D10w 1,000 ml @ 65 mls/hr IV .BY DURATION [facility] Rx#:[id number] Mvi, Adult No.4 with Vit 525 900 K 10 ml Trace (Conc-1Ml/ Dose) 1 ml Sodium Chloride 2.5MEQ/ml Vial 40 meq Potassium Chloride 40 meq Calcium Gluconate 1.5 gm Magnesium Sulfate gm 2 gm Potassium Phosphate 15 mmol In Amino Acids 5 %/Dextrose 20 % 1,000 ml @ 75 mls/hr IV .BY DURATION [facility] Rx#: [id number] Potassium Chloride 20 meq 100 In Water For Injection 1 100ml.bag @ 50 mls/hr IVPB ONCE ONE Rx#: [id number] metroNIDAZOLE-NS PMX 500 100 100 mg In Saline 1 100ml.bag @ 100 mls/hr IVPB Q8HR [facility] Rx#:[id number] Intake, IV Titration 1157 Amount Lactated Ringers 1,000 ml 20 @ 20 mls/hr IV .Q24H [facility] Rx#:[id number] Mvi, Adult No.4 with Vit 1072 K 10 ml Trace (Conc-1Ml/ Dose) 1 ml Sodium Chloride 2.5MEQ/ml Vial 30 meq Sodium Acetate 10 meq Potassium Chloride 40 meq Calcium Gluconate 1. 5 gm Magnesium Sulfate gm 2 gm Potassium Phosphate 15 mmol In Amino Acid 4. 25%-D10w 1,000 ml @ 65 mls/hr IV .BY DURATION [facility] Rx#:[id number] Sodium Chloride 2.5MEQ/ml 65 Vial 30 meq Sodium Acetate 10 meq Potassium Chloride 40 meq Calcium Gluconate 1.5 gm Magnesium Sulfate gm 2 gm Potassium Phosphate 15 mmol In Amino Acid 4.25%- D10w 1,000 ml @ 65 mls/hr IV .BY DURATION [facility] Rx#: [id number] Output: Drainage 95 60 Right Upper Abdomen 95 60 Urine 2004 1994 Other: Voiding Method Indwelling Catheter Indwelling Catheter Indwelling Catheter ABP, PAP, CO, CI - Last Documented Arterial Blood Pressure 97/69 - Exam No acute distress, currently on nasal O2. The patient was extubated yesterday. She appears very weak. Saturations are 93-94%. HEENT examination is grossly unremarkable. Neck supple. Full range of motion. No adenopathy thyromegaly or neck vein distention. Cardiovascular examination reveals an irregular rhythm and rate. S1-S2 normal. No S3 or S4. No discernible murmur noted. Heart rate 89 bpm. Lungs reveal scattered rhonchi. Breath sounds equal. No wheezes. No crackles. Saturations are 93-94% on 2 L. Abdomen soft without bowel sounds. Extremities are intact. No cyanosis clubbing or edema. Skin is without rash or lesion. Neurologic examination is unchanged. - Labs CBC & Chem 7: 10/24/21 07:16 10/24/21 07:16 Labs: Abnormal Lab Results - Last 24 Hours (Table) 10/23/21 10/23/21 10/24/21 Range/Units 11:39 17:19 00:26 RBC (3.80-5.40) m/uL Hgb (11.4-16.0) gm/dL Hct (34.0-46.0) % MCHC (31.0-37.0) g/dL RDW (11.5-15.5) % Plt Count (150-450) k/uL Sodium (137-145) mmol/L BUN (7-17) mg/dL Glucose (74-99) mg/dL POC Glucose (mg/dL) 137 H 111 H 110 H (75-99) mg/dL Calcium (8.4-10.2) mg/dL Total Protein (6.3-8.2) g/dL Albumin (3.5-5.0) g/dL 10/24/21 10/24/21 10/24/21 Range/Units 06:24 07:16 07:16 RBC 2.37 L (3.80-5.40) m/uL Hgb 7.0 L (11.4-16.0) gm/dL Hct 22.5 L (34.0-46.0) % MCHC 30.9 L (31.0-37.0) g/dL RDW 17.9 H (11.5-15.5) % Plt Count 461 H (150-450) k/uL Sodium 135 L (137-145) mmol/L BUN 22 H (7-17) mg/dL Glucose 156 H (74-99) mg/dL POC Glucose (mg/dL) 178 H (75-99) mg/dL Calcium 7.1 L (8.4-10.2) mg/dL Total Protein 4.2 L (6.3-8.2) g/dL Albumin 1.7 L (3.5-5.0) g/dL Assessment and Plan Assessment: Postoperative respiratory failure, requiring intubation and mechanical ventilation, S/P extubation on 10/21/2021. Postoperative day #8, status post exploratory laparotomy, repair of duodenal ulcer, and pyloroplasty for GI bleed. Massive upper GI bleed, status post surgery. Evolving large right MCA territory infarct. Chronic cellulitis lower extremities. Acute urinary tract infection. Type 2 diabetes mellitus. History of CVA. Toxic/metabolic encephalopathy. Sepsis, with septic shock. Cardiomyopathy with LV dysfunction. Plan: Plan dated 10/21/2021. The patient remains on a small dose of norepinephrine. The patient's also on dexmedetomidine for agitation. Today, we will stop the sedation, and do a daily interruption of sedation, trial. The patient be placed on PSV 5 CPAP of 5. She may or may not be ready for extubation. Weaning parameters will be done. Labs, x-rays, medications are reviewed. She continues on GI and DVT prophylaxis. Labs, x-rays, medications are reviewed. Prognosis is guarded. We will continue to follow and make recommendations where appropriate. Plan dated 10/22/2021. The patient was extubated successfully yesterday, on October 21. The patient is still very weak. She remains on norepinephrine at less than 3 mcg/m. Lactated Ringer's which is running at 100 mL an hour, will be turned down to KVO. The patient does have diffuse edema. I have asked the nurses to go very gentle with her pain medications, and also make sure that she has an incentive spirometer in the room. The patient's overall prognosis remains guarded. Labs x-rays a medications are reviewed. Continue to follow the patient and make recommendations where appropriate. Plan dated 10/23/2021 The patient was seen in evaluated, in room 257. The brain CT from yesterday is reviewed. It does show an evolving right MCA territory infarct. The patient currently is on lactated Ringer's at 20 mL an hour, and TPN at 65 mL an hour. Norepinephrine has been weaned down. She remains on 2 L nasal cannula. Labs, x-rays, and medications are reviewed. Prognosis is certainly guarded. We will continue to follow the patient make recommendations were appropriate. Plan dated 10/24/2021. The patient is again examined, in room 257, ICU. The brain computed tomography scan from October 22 was reviewed. The patient currently remains on some lactated Ringer's, and TPN. Norepinephrine has been weaned off. She remains on 2 L n shine cannula. Additional recommendations and suggestions are forthcoming. Labs, x-rays, medications are all reviewed. The patient's overall prognosis remains guarded. I believe she is well enough to leave the intensive care unit. We will continue to follow the patient and make recommendations where appropriate. Time with Patient: Less than 30
[2021-10-24 11:06] VITALS: BMI 35.1
[2021-10-24 11:43] LABS: Glucose,Whole Blood 140 mg/dL (75-99)
--- NOTE | 2021-10-24 11:53 | P.PN ---
Subjective Progress Note Date: 10/24/21 CHIEF COMPLAINT: Duodenal ulcer HISTORY OF PRESENT ILLNESS: Patient is in the ICU. [facility] She is postop day #8 status post Exploratory laparotomy with repair of perforated duodenal ulcer and control of bleeding, pyloroplasty. Patient did have a brown bowel movement. She passed her swallow evaluation. She is currently nothing by mouth. On TPN for nutrition support. Her pain is controlled. Afebrile. WBC 10.9 down to 7.4 hemoglobin trending down to 7.0 platelets 461 PHYSICAL EXAM: VITAL SIGNS: Reviewed. GENERAL: Well-developed in no acute distress. HEENT: No sclera icterus. Extraocular movements grossly intact. Moist buccal mucosa. Head is atraumatic, normocephalic. MARIA LUISA drain 60 mL serous fluid ABDOMEN: Soft. nondistended. Incision site clean dry and intact ASSESSMENT: 1. Duodenal ulcer with perforation and active bleeding status post Exploratory laparotomy with repair of perforated duodenal ulcer and control of bleeding, pyloroplasty. PLAN: -Start clear liquid diet -Continue PPI -Continue to monitor hemoglobin -Antibiotics per ID service -Continue TPN for nutrition support -Continue supportive care -DVT prophylaxis Lovenox Physician It Risk And Assurance Manager note has been reviewed by physician. Signing provider agrees with the documented findings, assessment, and plan of care. I have personally seen and examined the patient, reviewed the EDUCATIONAL ADVISOR /PAs history, exam and MDM and agree with the assessment and plan as written. Based on total visit time, I have performed more than 50% of the visit. As above: Patient remains confused. Having mild discomfort in the legs and abdomen. MARIA LUISA remains serous. Continue clear liquids. No carbonation. Objective - Vital Signs Vital signs: Vital Signs Temp 98.2 F 10/24/21 08:00 Pulse 89 10/24/21 09:00 Resp 16 10/24/21 09:00 BP 112/63 10/24/21 09:00 Pulse Ox 94 L 10/24/21 09:00 Intake & Output 10/23/21 10/24/21 10/24/21 18:59 06:59 18:59 Intake Total 2582 1283 Output Total 2100 2055 Balance 482 -772 Weight 91 kg 90 kg 90 kg Intake: IV 1425 1283 0.9 Sodium Chloride 220 183 Anidulafungin 100 mg In 100 Sodium Chloride 0.9% 100 ml @ 84 mls/hr IVPB DAILY [facility] Rx#:[id number] Cefepime 2 gm In Sodium 100 100 Chloride 0.9% 100 ml @ 25 mls/hr IVPB Q8HR [facility] Rx# :[id number] Mvi, Adult No.4 with Vit 205 K 10 ml Trace (Conc-1Ml/ Dose) 1 ml Sodium Acetate 30 meq Potassium Acetate 20 meq Magnesium Sulfate gm 1 gm Calcium Gluconate 1 gm In Amino Acid 4.25%-D10w 1,000 ml @ 65 mls/hr IV .BY DURATION [facility] Rx#: [id number] Mvi, Adult No.4 with Vit 75 K 10 ml Trace (Conc-1Ml/ Dose) 1 ml Sodium Chloride 2.5MEQ/ml Vial 30 meq Sodium Acetate 10 meq Potassium Chloride 40 meq Calcium Gluconate 1. 5 gm Magnesium Sulfate gm 2 gm Potassium Phosphate 15 mmol In Amino Acid 4. 25%-D10w 1,000 ml @ 65 mls/hr IV .BY DURATION [facility] Rx#:[id number] Mvi, Adult No.4 with Vit 525 900 K 10 ml Trace (Conc-1Ml/ Dose) 1 ml Sodium Chloride 2.5MEQ/ml Vial 40 meq Potassium Chloride 40 meq Calcium Gluconate 1.5 gm Magnesium Sulfate gm 2 gm Potassium Phosphate 15 mmol In Amino Acids 5 %/Dextrose 20 % 1,000 ml @ 75 mls/hr IV .BY DURATION [facility] Rx#: [id number] Potassium Chloride 20 meq 100 In Water For Injection 1 100ml.bag @ 50 mls/hr IVPB ONCE ONE Rx#: [id number] metroNIDAZOLE-NS PMX 500 100 100 mg In Saline 1 100ml.bag @ 100 mls/hr IVPB Q8HR [facility] Rx#:[id number] Intake, IV Titration 1157 Amount Lactated Ringers 1,000 ml 20 @ 20 mls/hr IV .Q24H [facility] Rx#:[id number] Mvi, Adult No.4 with Vit 1072 K 10 ml Trace (Conc-1Ml/ Dose) 1 ml Sodium Chloride 2.5MEQ/ml Vial 30 meq Sodium Acetate 10 meq Potassium Chloride 40 meq Calcium Gluconate 1. 5 gm Magnesium Sulfate gm 2 gm Potassium Phosphate 15 mmol In Amino Acid 4. 25%-D10w 1,000 ml @ 65 mls/hr IV .BY DURATION [facility] Rx#:[id number] Sodium Chloride 2.5MEQ/ml 65 Vial 30 meq Sodium Acetate 10 meq Potassium Chloride 40 meq Calcium Gluconate 1.5 gm Magnesium Sulfate gm 2 gm Potassium Phosphate 15 mmol In Amino Acid 4.25%- D10w 1,000 ml @ 65 mls/hr IV .BY DURATION [facility] Rx#: [id number] Output: Drainage 95 60 Right Upper Abdomen 95 60 Urine 2004 1994 Other: Voiding Method Indwelling Catheter Indwelling Catheter Indwelling Catheter ABP, PAP, CO, CI - Last Documented Arterial Blood Pressure 97/69 - Labs CBC & Chem 7: 10/24/21 07:16 10/24/21 07:16 Labs: Abnormal Lab Results - Last 24 Hours (Table) 10/23/21 10/24/21 10/24/21 Range/Units 17:19 00:26 06:24 RBC (3.80-5.40) m/uL Hgb (11.4-16.0) gm/dL Hct (34.0-46.0) % MCHC (31.0-37.0) g/dL RDW (11.5-15.5) % Plt Count (150-450) k/uL Sodium (137-145) mmol/L BUN (7-17) mg/dL Glucose (74-99) mg/dL POC Glucose (mg/dL) 111 H 110 H 178 H (75-99) mg/dL Calcium (8.4-10.2) mg/dL Total Protein (6.3-8.2) g/dL Albumin (3.5-5.0) g/dL 10/24/21 10/24/21 10/24/21 Range/Units 07:16 07:16 11:40 RBC 2.37 L (3.80-5.40) m/uL Hgb 7.0 L (11.4-16.0) gm/dL Hct 22.5 L (34.0-46.0) % MCHC 30.9 L (31.0-37.0) g/dL RDW 17.9 H (11.5-15.5) % Plt Count 461 H (150-450) k/uL Sodium 135 L (137-145) mmol/L BUN 22 H (7-17) mg/dL Glucose 156 H (74-99) mg/dL POC Glucose (mg/dL) 140 H (75-99) mg/dL Calcium 7.1 L (8.4-10.2) mg/dL Total Protein 4.2 L (6.3-8.2) g/dL Albumin 1.7 L (3.5-5.0) g/dL
--- NOTE | 2021-10-24 13:25 | P.PN ---
Subjective Progress Note Date: 10/24/21 Pt doing well. Incision site is c/d/i. No complaints. Off levophed. Continuing cefepime, flagyl, eraxis. Gen: intubated, sedated HEENT: normocephalic, atraumatic, moist mucous membranes Resp: intubated CVS: good distal perfusion x 4, : no SPT, no CVAT, martinez catheter is present MSK: + pitting edema, no clubbing Assessment/Plan: #Acute hypoxic respiratory failure #Acute on Chronic Systolic Heart Failure Exacerbation, EF 40-45% -Pulmonary following, appreciate recs -continue lasix 20mg IV BID -On NC s/p extubation on 10/22, doing well. #Massive upper GI bleeding secondary to bleeding duodenal ulcer #Subacute Stroke -Status post respiratory laparotomy with repair of perforated duodenal ulcer and pyloroplasty by general surgeon on September 16 -Aspirin and Plavix on hold -Timing of ASA or Plavix per surgery -Neurology following #Septic Shock #Toxic Encephalopathy #Bilateral lower extremity cellulitis secondary to nonhealing vascular status ulcers, Necrotic #Acute urinary tract infection on presentation -Status post debridement with deep tissue culture by vascular surgery with wound Cx growing polymicrobial organisms, group A strep, pseudomonas, E coli, MSSA -UCx with E colli -Resume IV cefepime, flagyl, eraxis per ID -Infectious disease following #Type 2 diabetes -SSI aspart q6h #History of subacute CVA -Aspirin and Plavix on hold secondary to above Pt is Full Code DVT PPx on hold due to bleed Objective - Vital Signs Vital signs: Vital Signs Temp 98.2 F 10/24/21 08:00 Pulse 89 10/24/21 09:00 Resp 16 10/24/21 09:00 BP 112/63 10/24/21 09:00 Pulse Ox 94 L 10/24/21 09:00 Intake & Output 10/23/21 10/24/21 10/24/21 18:59 06:59 18:59 Intake Total 2582 1283 Output Total 2099 2054 Balance 482 -772 Weight 91 kg 90 kg 90 kg Intake: IV 1425 1283 0.9 Sodium Chloride 220 183 Anidulafungin 100 mg In 100 Sodium Chloride 0.9% 100 ml @ 84 mls/hr IVPB DAILY [facility] Rx#:[id number] Cefepime 2 gm In Sodium 100 100 Chloride 0.9% 100 ml @ 25 mls/hr IVPB Q8HR [facility] Rx# :[id number] Mvi, Adult No.4 with Vit 205 K 10 ml Trace (Conc-1Ml/ Dose) 1 ml Sodium Acetate 30 meq Potassium Acetate 20 meq Magnesium Sulfate gm 1 gm Calcium Gluconate 1 gm In Amino Acid 4.25%-D10w 1,000 ml @ 65 mls/hr IV .BY DURATION [facility] Rx#: [id number] Mvi, Adult No.4 with Vit 75 K 10 ml Trace (Conc-1Ml/ Dose) 1 ml Sodium Chloride 2.5MEQ/ml Vial 30 meq Sodium Acetate 10 meq Potassium Chloride 40 meq Calcium Gluconate 1. 5 gm Magnesium Sulfate gm 2 gm Potassium Phosphate 15 mmol In Amino Acid 4. 25%-D10w 1,000 ml @ 65 mls/hr IV .BY DURATION [facility] Rx#:[id number] Mvi, Adult No.4 with Vit 525 900 K 10 ml Trace (Conc-1Ml/ Dose) 1 ml Sodium Chloride 2.5MEQ/ml Vial 40 meq Potassium Chloride 40 meq Calcium Gluconate 1.5 gm Magnesium Sulfate gm 2 gm Potassium Phosphate 15 mmol In Amino Acids 5 %/Dextrose 20 % 1,000 ml @ 75 mls/hr IV .BY DURATION [facility] Rx#: [id number] Potassium Chloride 20 meq 100 In Water For Injection 1 100ml.bag @ 50 mls/hr IVPB ONCE ONE Rx#: [id number] metroNIDAZOLE-NS PMX 500 100 100 mg In Saline 1 100ml.bag @ 100 mls/hr IVPB Q8HR [facility] Rx#:[id number] Intake, IV Titration 1157 Amount Lactated Ringers 1,000 ml 20 @ 20 mls/hr IV .Q24H [facility] Rx#:[id number] Mvi, Adult No.4 with Vit 1072 K 10 ml Trace (Conc-1Ml/ Dose) 1 ml Sodium Chloride 2.5MEQ/ml Vial 30 meq Sodium Acetate 10 meq Potassium Chloride 40 meq Calcium Gluconate 1. 5 gm Magnesium Sulfate gm 2 gm Potassium Phosphate 15 mmol In Amino Acid 4. 25%-D10w 1,000 ml @ 65 mls/hr IV .BY DURATION [facility] Rx#:[id number] Sodium Chloride 2.5MEQ/ml 65 Vial 30 meq Sodium Acetate 10 meq Potassium Chloride 40 meq Calcium Gluconate 1.5 gm Magnesium Sulfate gm 2 gm Potassium Phosphate 15 mmol In Amino Acid 4.25%- D10w 1,000 ml @ 65 mls/hr IV .BY DURATION [facility] Rx#: [id number] Output: Drainage 95 60 Right Upper Abdomen 95 60 Urine 2004 1994 Other: Voiding Method Indwelling Catheter Indwelling Catheter Indwelling Catheter ABP, PAP, CO, CI - Last Documented Arterial Blood Pressure 97/69 - Labs CBC & Chem 7: 10/24/21 07:16 10/24/21 07:16 Labs: Abnormal Lab Results - Last 24 Hours (Table) 10/23/21 10/24/21 10/24/21 Range/Units 17:19 00:26 06:24 RBC (3.80-5.40) m/uL Hgb (11.4-16.0) gm/dL Hct (34.0-46.0) % MCHC (31.0-37.0) g/dL RDW (11.5-15.5) % Plt Count (150-450) k/uL Sodium (137-145) mmol/L BUN (7-17) mg/dL Glucose (74-99) mg/dL POC Glucose (mg/dL) 111 H 110 H 178 H (75-99) mg/dL Calcium (8.4-10.2) mg/dL Total Protein (6.3-8.2) g/dL Albumin (3.5-5.0) g/dL 10/24/21 10/24/21 10/24/21 Range/Units 07:16 07:16 11:40 RBC 2.37 L (3.80-5.40) m/uL Hgb 7.0 L (11.4-16.0) gm/dL Hct 22.5 L (34.0-46.0) % MCHC 30.9 L (31.0-37.0) g/dL RDW 17.9 H (11.5-15.5) % Plt Count 461 H (150-450) k/uL Sodium 135 L (137-145) mmol/L BUN 22 H (7-17) mg/dL Glucose 156 H (74-99) mg/dL POC Glucose (mg/dL) 140 H (75-99) mg/dL Calcium 7.1 L (8.4-10.2) mg/dL Total Protein 4.2 L (6.3-8.2) g/dL Albumin 1.7 L (3.5-5.0) g/dL
[2021-10-24 18:55] LABS: Glucose,Whole Blood 127 mg/dL (75-99)
--- NOTE | 2021-10-24 22:12 | P.PN ---
Subjective Progress Note Date: 10/24/21 Principal diagnosis: Bilateral lower extremity venous stasis ulcer and cellulitis Patient is a 66-year-old female who has not seen a physician in 20 years presented to the hospital with significant bilateral lower extremity necrotic wound and secondary cellulitis in this patient who is status post surgical debridement of these wounds in the OR on 10/13/2021. Patient did have a GI bleed could not be controlled through the EGD patient subsequently taken to the OR and status post laparotomy for a bleeding and perforated duodenal ulcer disease on 10/16/2021 On today's evaluation that is 10/24/2021, the patient is afebrile, the patient is hemodynamically stable not requiring any pressor support , the patient is breathing comfortably on nasal cannula Oxygen, patient denies any chest pain shortness of breath occasional cough no abdominal pain no diarrhea Objective - Vital Signs Vital signs: Vital Signs Temp 98.2 F 10/24/21 08:00 Pulse 89 10/24/21 09:00 Resp 16 10/24/21 09:00 BP 112/63 10/24/21 09:00 Pulse Ox 94 L 10/24/21 09:00 Intake & Output 10/23/21 10/24/21 10/24/21 18:59 06:59 18:59 Intake Total 2582 1283 Output Total 2100 2055 Balance 482 -772 Weight 91 kg 90 kg 90 kg Intake: IV 1425 1283 0.9 Sodium Chloride 220 183 Anidulafungin 100 mg In 100 Sodium Chloride 0.9% 100 ml @ 84 mls/hr IVPB DAILY [facility] Rx#:[id number] Cefepime 2 gm In Sodium 100 100 Chloride 0.9% 100 ml @ 25 mls/hr IVPB Q8HR [facility] Rx# :[id number] Mvi, Adult No.4 with Vit 205 K 10 ml Trace (Conc-1Ml/ Dose) 1 ml Sodium Acetate 30 meq Potassium Acetate 20 meq Magnesium Sulfate gm 1 gm Calcium Gluconate 1 gm In Amino Acid 4.25%-D10w 1,000 ml @ 65 mls/hr IV .BY DURATION [facility] Rx#: [id number] Mvi, Adult No.4 with Vit 75 K 10 ml Trace (Conc-1Ml/ Dose) 1 ml Sodium Chloride 2.5MEQ/ml Vial 30 meq Sodium Acetate 10 meq Potassium Chloride 40 meq Calcium Gluconate 1. 5 gm Magnesium Sulfate gm 2 gm Potassium Phosphate 15 mmol In Amino Acid 4. 25%-D10w 1,000 ml @ 65 mls/hr IV .BY DURATION [facility] Rx#:[id number] Mvi, Adult No.4 with Vit 525 900 K 10 ml Trace (Conc-1Ml/ Dose) 1 ml Sodium Chloride 2.5MEQ/ml Vial 40 meq Potassium Chloride 40 meq Calcium Gluconate 1.5 gm Magnesium Sulfate gm 2 gm Potassium Phosphate 15 mmol In Amino Acids 5 %/Dextrose 20 % 1,000 ml @ 75 mls/hr IV .BY DURATION [facility] Rx#: [id number] Potassium Chloride 20 meq 100 In Water For Injection 1 100ml.bag @ 50 mls/hr IVPB ONCE ONE Rx#: [id number] metroNIDAZOLE-NS PMX 500 100 100 mg In Saline 1 100ml.bag @ 100 mls/hr IVPB Q8HR [facility] Rx#:[id number] Intake, IV Titration 1157 Amount Lactated Ringers 1,000 ml 20 @ 20 mls/hr IV .Q24H [facility] Rx#:[id number] Mvi, Adult No.4 with Vit 1072 K 10 ml Trace (Conc-1Ml/ Dose) 1 ml Sodium Chloride 2.5MEQ/ml Vial 30 meq Sodium Acetate 10 meq Potassium Chloride 40 meq Calcium Gluconate 1. 5 gm Magnesium Sulfate gm 2 gm Potassium Phosphate 15 mmol In Amino Acid 4. 25%-D10w 1,000 ml @ 65 mls/hr IV .BY DURATION [facility] Rx#:[id number] Sodium Chloride 2.5MEQ/ml 65 Vial 30 meq Sodium Acetate 10 meq Potassium Chloride 40 meq Calcium Gluconate 1.5 gm Magnesium Sulfate gm 2 gm Potassium Phosphate 15 mmol In Amino Acid 4.25%- D10w 1,000 ml @ 65 mls/hr IV .BY DURATION [facility] Rx#: [id number] Output: Drainage 95 60 Right Upper Abdomen 95 60 Urine 2004 1994 Other: Voiding Method Indwelling Catheter Indwelling Catheter Indwelling Catheter ABP, PAP, CO, CI - Last Documented Arterial Blood Pressure 97/69 - Exam GENERAL DESCRIPTION: An elderly female lying in bed in no distress RESPIRATORY SYSTEM: Unlabored breathing , decreased breath sounds at bases HEART: S1 S2 regular rate and rhythm , ABDOMEN: Soft , no tenderness EXTREMITIES: Bilateral lower extremity wounds are currently dressed no drainage on the dressing - Labs CBC & Chem 7: 10/24/21 07:16 10/24/21 07:16 Labs: Abnormal Lab Results - Last 24 Hours (Table) 10/23/21 10/24/21 10/24/21 Range/Units 17:19 00:26 06:24 RBC (3.80-5.40) m/uL Hgb (11.4-16.0) gm/dL Hct (34.0-46.0) % MCHC (31.0-37.0) g/dL RDW (11.5-15.5) % Plt Count (150-450) k/uL Sodium (137-145) mmol/L BUN (7-17) mg/dL Glucose (74-99) mg/dL POC Glucose (mg/dL) 111 H 110 H 178 H (75-99) mg/dL Calcium (8.4-10.2) mg/dL Total Protein (6.3-8.2) g/dL Albumin (3.5-5.0) g/dL 10/24/21 10/24/21 10/24/21 Range/Units 07:16 07:16 11:40 RBC 2.37 L (3.80-5.40) m/uL Hgb 7.0 L (11.4-16.0) gm/dL Hct 22.5 L (34.0-46.0) % MCHC 30.9 L (31.0-37.0) g/dL RDW 17.9 H (11.5-15.5) % Plt Count 461 H (150-450) k/uL Sodium 135 L (137-145) mmol/L BUN 22 H (7-17) mg/dL Glucose 156 H (74-99) mg/dL POC Glucose (mg/dL) 140 H (75-99) mg/dL Calcium 7.1 L (8.4-10.2) mg/dL Total Protein 4.2 L (6.3-8.2) g/dL Albumin 1.7 L (3.5-5.0) g/dL Assessment and Plan (1) Cellulitis Current Visit: Yes Status: Acute Code(s): L03.90 - CELLULITIS, UNSPECIFIED SNOMED Code(s): 463804929 Plan: 1patient with bilateral lower extremity nonhealing wound and cellulitis seems to be more of a venous stasis ulcers with secondary cellulitis and likely from gram-positive skin pb less likely gram-negative infection in this patient has not seen a physician for 20 years less likelihood of a MRSA infection. 2 patient is status post surgical debridement and deep culture which are currently growing multiple pathogens including Pseudomonas strep 3patient did have acute GI bleed with evidence of perforated and bleeding duodenal ulcer requiring laparotomy, patient did have clinical improvement and has been extubated, patient white count has normalized and her show overall clinical improvement, patient to continue with cefepime and Flagyl and Eraxis and local wound care to the leg as ordered Time with Patient: Less than 30
[2021-10-25] MEDS ORDERED: HYDROmorphone 1 MG/ML 1 ML SYRINGE ONE
[2021-10-25] MEDS ORDERED: INSULIN ASPART (NovoLOG) 100 UNIT/ML VIAL SQ ONE
[2021-10-25 05:27] LABS: Glucose,Whole Blood 135 mg/dL (75-99)
[2021-10-25 05:29] LABS: ALT 10 U/L (4-34); AST 24 U/L (14-36); African American GFR (CKD) >90 (>60 ml/min/1.73 sqM); Albumin 1.8 g/dL (3.5-5.0); Alkaline Phosphatase 68 U/L (38-126); Anion Gap 2 mmol/L; Blood Urea Nitrogen 24 mg/dL (7-17); Calcium 7.4 mg/dL (8.4-10.2); Carbon Dioxide 28 mmol/L (22-30); Chloride 104 mmol/L (98-107); Glucose 139 mg/dL (74-99); Non-African American GFR(CKD) >90 (>60 ml/min/1.73 sqM); Phosphorus 3.4 mg/dL (2.5-4.5); Potassium 4.4 mmol/L (3.5-5.1); Sodium 134 mmol/L (137-145); Total Bilirubin 0.4 mg/dL (0.2-1.3); Total Protein 4.3 g/dL (6.3-8.2)
[2021-10-25] MEDS: CEFEPIME 2 GM in SODIUM CHLORIDE 0.9% 100 ML IVPB SCH ×4 (05:35→23:26)
[2021-10-25] MEDS: INSULIN ASPART (NovoLOG) 100 UNIT/ML VIAL SQ SCH ×4 (05:35→17:08)
[2021-10-25] MEDS: metroNIDAZOLE-NS PMX 500 MG in SALINE 1 100ML.BAG IVPB SCH ×3 (05:36→17:08)
[2021-10-25 05:40] LABS: Anisocytosis Slight; HCT 26.7 % (34.0-46.0); HGB 8.1 gm/dL (11.4-16.0); Hypochromasia Moderate; MCH 29.4 pg (25.0-35.0); MCHC 30.2 g/dL (31.0-37.0); MCV 97.3 fL (80.0-100.0); Macrocytosis Slight; Mean Platelet Volume 7.6; Platelet Count 467 k/uL (150-450); RBC 2.75 m/uL (3.80-5.40); RDW 17.3 % (11.5-15.5); WBC 6.7 k/uL (3.8-10.6)
[2021-10-25 05:43] LABS: Glucose,Whole Blood 112 mg/dL (75-99)
[2021-10-25] MEDS: 1: MVI, ADULT NO.4 WITH VIT K 10 ML, TRACE (CONC-1ML/DOSE) 1 ML, SODIUM CHLORIDE 2.5MEQ/ IV SCH ×26 (05:48→17:07)
[2021-10-25] MEDS: PANTOPRAZOLE 40 MG/10 ML VIAL IVP SCH ×2 (08:42→23:25)
[2021-10-25] MEDS: FUROSEMIDE 10 MG/ML 2 ML VIAL IV SCH ×2 (08:42→23:25)
[2021-10-25] MEDS: ENOXAPARIN 40 MG/0.4 ML SYRINGE SQ SCH (08:45)
[2021-10-25] MEDS: GABAPENTIN 100 MG CAP PO SCH ×3 (09:02→23:27)
[2021-10-25] MEDS: ATORVASTATIN 40 MG TAB PO SCH (09:03)
--- NOTE | 2021-10-25 09:42 | P.PN ---
Subjective Progress Note Date: 10/25/21 Principal diagnosis: Respiratory failure. Patient was reevaluated today on 10/18/2021, remains intubated and mechanically ventilated. She is on assist control rate of 16, while at 400 FiO2 40% PEEP of 5. ABG showed a pO2 of 107 pCO2 39 pH of 7.3. Patient remains on propofol at 55 mcg/kg/m she is also on TPN and she still requiring norepinephrine 0.16 mcg/kg/m. Hemoglobin dropped yesterday, and now she is receiving another unit of packed RBCs. Hoping that her blood pressure would improve after the transfusion, and we'll continue to taper down the norepinephrine. No rectal bleeding, patient does have coffee ground material in the nasogastric tube output. Patient is sedated, however when the propofol was placed on hold, she became extremely agitated, and I recommended that we continue sedating the patient, and she is not quite ready for weaning and extubation at this point yet. Not to mention the patient is sedated requiring norepinephrine for hemodynamic support. We'll continue to try on a daily basis weaning possible off mechanical ventilation. In the meantime we'll continue TPN, continue nutritional support, continue treatment for her ulcer, he is on Protonix, and I plan to start the patient on Protonix 40 mg subcu daily, cleared by surgery for subcu heparin. Chest x-ray showed mild interstitial changes today. Possibly mild interstitial edema. WBC count is down to 37.4 hemoglobin is 6.8 today. Electrolytes are unremarkable except for slightly low potassium of 3.5. ABG showed a pO2 of 107 pCO2 of 39 pH of 7.38. Patient is on 50% FiO2. Cut down to 40% Reevaluated today on 10/19/2021, patient remains intubated, mechanically ventilated, remains norepinephrine dependent, blood pressure is marginal, she by however the dose of norepinephrine is down to 0.08 mcg/kg/m. Her ventilator settings are assist control rate of 1612 volume 400 FiO2 40% and PEEP of 5. ABG showed a pO2 of 93 pCO2 33 pH of 7.49, hence no changes were made in the vent ilator settings. Her leukocytosis is improving. Patient has excellent urine output, remains on Lasix intermittently as she seems to be quite swollen and edematous, patient received significant amount of fluid since admission. She is on Lasix at 20 mg every 12 hours. Patient is receiving TPN at 65 mL per hour. She is on propofol at 50 mcg/kg/m, norepinephrine 0.08 and she is on antibiotics in the form of cefepime and Flagyl and Eraxis. Chest x-ray showed mild interstitial changes. WBC count is 27.3 hemoglobin is 7.6. Basic metabolic profile is unremarkable, potassium is 3.4 Reevaluated today on 10/20/2021, patient remains in the ICU, intubated and mechanically ventilated. She is sedated, she is on propofol at 45 mcg/kg/m. Still requiring norepinephrine at 0.07 mcg/kg/m at one point she was over 0.18 mcg/kg/m. Patient remains on cefepime, Eraxis and Flagyl. Remains on TPN, and she is still receiving lactated Ringer's at 100 mL per hour. Ventilator jenkins the patient is on assist control rate of 16 tidal volume 400 FiO2 40% PEEP of 5 ABG showed a pO2 of 95 pCO2 41 pH of 7.47, FiO2 was cut down to 35%. Chest x- ray is showing mild interstitial edema however the patient has excellent urine output and she is on a maintenance dose of Lasix. And her oxygenation based on that ABG seems to be improving. Her WBC count is improving down to 24.6, hemoglobin 7.6. Electrolytes and renal profile are normal. Progress note dated 10/21/2021. This is a patient was initially admitted back on October 11. She came into the hospital with cellulitis. She came to the intensive care unit on October 15, and was intubated on October 16, respiratory failure severe GI bleeding. She went to the op erating room, on the same day, and had an exploratory laparotomy, repair to Myke also, and pyloroplasty. She remains on mechanical ventilator. She is on the volume assist control, rate 16, tidal volume 400, FiO2 35%, PEEP of 5. Blood gases show pO2 of 95, pCO2 41, and pH is 7.51. Blood gases are consistent with a metabolic alkalosis. She is on norepinephrine at 4 mcg/m, Precedex at 0.1 mcg/kg/h, lactated Ringer's at 100 mL an hour, and TPN at 65 mL an hour. White count 17, hemoglobin 7.3, hematocrit 22.8, platelet count 2 49,000. Sodium 137, potassium 4, chlorides 103, CO2 32, anion gap 2, BUN 23, and creatinine 0.68. Albumin is only 1.5. Microbiologic studies are reviewed. Chest x-ray shows some increased density at the left lung base, and some pulmonary vascular congestion and interstitial lung markings to be more prominent. Progress note dated 10/22/2021. This is a patient who was initially admitted back on October 11. She came into the hospital with cellulitis of the lower extremities. She came to the intensive care unit on October 15, and was intubated on October 16, for respiratory failure, and severe GI bleeding. She went to the operating room on the same day, and had exploratory laparotomy, repair to the duodenal ulcer, and pyloroplasty. Yesterday, the patient was extubated from mechanical ventilator, with reasonable blood gases and reasonable weaning parameters. She remains in the intensive care unit. She is very weak. She's currently on 2 L nasal cannula. She remains on lactated Ringer's at 100 mL an hour, and TPN at 65 mL an hour. The patient's currently on norepinephrine at 2.7 mcg/m. The patient's white count is 15.6, hemoglobin 7.3, hematocrit 22.9, platelet count was normal. Sodium 136, potassium 3.6, chlorides 100, CO2 34, anion gap 2, BUN 19, creatinine 0.66. Albumin is 1.6. Chest x-rays consistent with mild fluid overload/CHF. Progress note dated 10/23/2021. 66-year-old female dated back on October 11. She initially came to the hospital with lower extremity cellulitis. She came to the intensive care unit on October 15, and was intubated on October 16 for respiratory failure and severe GI bleeding. She went to the operating room on the same day had exploratory laparotomy, repair of duodenal ulcer, and pyloroplasty. The patient was extubated on October 21. Currently, she is on 2 L nasal cannula. She's getting lactated Ringer's at 20 mL an hour and TPN at 65 mL an hour norepinephrine has been weaned off. White count 10.9, hemoglobin 7.2, hematocrit 22.8, platelet count 392,000. Sodium 134, potassium 3.7, chlorides 100, CO2 35, BUN 20, creatinine 0.7. Albumin is only 1.6. Brain CT from October 22 shows an evolving large right MCA territory infarct demonstrating interval changes as described. A new tiny acute infarct cannot be excluded by the computed tomography scan. Progress note dated 10/24/2021. 66-year-old female, admitted back on October 11. She initially came to the hospital with lower extremity cellulitis. She came to the intensive care unit on October 15, and was intubated on October 16, for respiratory failure and severe GI bleeding. She went to the operating room on the same day, and had an exploratory laparotomy, repair of duodenal ulcer, and pyloroplasty. She was extubated successfully, on 10/21/2021. Currently, she is on 2 L nasal cannula. She's getting TPN at 67 mL an hour, and saline at 20 mL an hour. She is taking clear liquids by mouth. She remains on Flagyl, Eraxis, and cefepime. Brain CT from October 22 shows an evolving large right MCA territory infarct. White count 7.4, hemoglobin 7, hematocrit 22.5, and platelet count 461,000. Sodium 135, potassium 4.1, chlorides 101, CO2 29, BUN 22, creatinine 0.69. Progress note dated 10/25/2021. 66-year-old female admitted back on October 11. She initially came to the hospital for lower extremity cellulitis. She came to the ICU, on October 15, and was intubated on October 16, for respiratory failure and severe GI bleeding. She went to the operating room on the same day, and had an exploratory laparotomy, repair of duodenal ulcer, and pyloroplasty. She was successfully extubated on October 21. Currently, she is on 2 L. She's getting TPN at 90 mL an hour, and saline at 20 mL an hour. White count 6.7, hemoglobin 8.1, hematocrit 26.7, and platelet count 467,000. Sodium 134, potassium 4.4, chlorides 104, CO2 28, BUN 24, creatinine 0.67. Albumin is only 1.8. No chest x-ray today. The patient is a overflow patient. Objective - Vital Signs Vital signs: Vital Signs Temp 98.5 F 10/25/21 08:00 Pulse 78 10/25/21 02:00 Resp 20 10/25/21 08:00 BP 119/60 10/25/21 08:00 Pulse Ox 97 10/25/21 08:00 Intake & Output 10/24/21 10/25/21 10/25/21 18:59 06:59 18:59 Intake Total 95 2370 200 Output Total 60 1275 660 Balance 35 1095 -460 Weight 90 kg 90 kg Intake: IV 95 1320 200 0.9 Sodium Chloride 20 240 Cefepime 2 gm In Sodium 100 Chloride 0.9% 100 ml @ 25 mls/hr IVPB Q8HR [facility] Rx# :[id number] Mvi, Adult No.4 with Vit 75 K 10 ml Trace (Conc-1Ml/ Dose) 1 ml Sodium Chloride 2.5MEQ/ml Vial 40 meq Potassium Chloride 40 meq Calcium Gluconate 1.5 gm Magnesium Sulfate gm 2 gm Potassium Phosphate 15 mmol In Amino Acids 5 %/Dextrose 20 % 1,000 ml @ 75 mls/hr IV .BY DURATION [facility] Rx#: [id number] [facility], Adult No.4 with Vit 1080 K 10 ml Trace (Conc-1Ml/ Dose) 1 ml Sodium Chloride 2.5MEQ/ml Vial 45 meq Potassium Chloride 40 meq Calcium Gluconate 1.5 gm Magnesium Sulfate gm 0.5 gm Potassium Phosphate 15 mmol In Amino Acid 5%-D15w+Lytes* E* 1,000 ml @ 90 mls/hr IV .BY DURATION [facility] Rx#: [id number] metroNIDAZOLE-NS PMX 500 100 mg In Saline 1 100ml.bag @ 100 mls/hr IVPB Q8HR [facility] Rx#:[id number] Intake, IV Titration 1050 Amount Sodium Chloride 2.5MEQ/ml 1050 Vial 45 meq Potassium Chloride 40 meq Calcium Gluconate 1.5 gm Magnesium Sulfate gm 0.5 gm Potassium Phosphate 15 mmol In Amino Acid 5%- D15w 1,000 ml @ 90 mls/hr IV .BY DURATION [facility] Rx#: [id number] Output: Drainage 75 60 Right Upper Abdomen 75 60 Urine 60 1200 600 Other: Voiding Method Indwelling Catheter Indwelling Catheter External Catheter # Voids 1 ABP, PAP, CO, CI - Last Documented Arterial Blood Pressure 97/69 - Exam No acute distress, currently on nasal O2. Saturations are 97 %. HEENT examination is grossly unremarkable. Neck supple. Full range of motion. No adenopathy thyromegaly or neck vein distention. Cardiovascular examination reveals an irregular rhythm and rate. S1-S2 normal. No S3 or S4. No discernible murmur noted. Heart rate 78 bpm. Lungs reveal scattered rhonchi. Breath sounds equal. No wheezes. No crackles. Saturations are 97 on 2 L. Abdomen soft without bowel sounds. Extremities are intact. No cyanosis clubbing or edema. Skin is without rash or lesion. Neurologic examination is unchanged. - Labs CBC & Chem 7: 10/25/21 04:20 10/25/21 04:20 Labs: Abnormal Lab Results - Last 24 Hours (Table) 10/24/21 10/24/21 10/24/21 Range/Units 11:40 18:54 23:45 RBC (3.80-5.40) m/uL Hgb (11.4-16.0) gm/dL Hct (34.0-46.0) % MCHC (31.0-37.0) g/dL RDW (11.5-15.5) % Plt Count (150-450) k/uL Sodium (137-145) mmol/L BUN (7-17) mg/dL Glucose (74-99) mg/dL POC Glucose (mg/dL) 140 H 127 H 135 H (75-99) mg/dL Calcium (8.4-10.2) mg/dL Total Protein (6.3-8.2) g/dL Albumin (3.5-5.0) g/dL 10/25/21 10/25/21 10/25/21 Range/Units 04:20 04:20 05:41 RBC 2.75 L (3.80-5.40) m/uL Hgb 8.1 L (11.4-16.0) gm/dL Hct 26.7 L (34.0-46.0) % MCHC 30.2 L (31.0-37.0) g/dL RDW 17.3 H (11.5-15.5) % Plt Count 467 H (150-450) k/uL Sodium 134 L (137-145) mmol/L BUN 24 H (7-17) mg/dL Glucose 139 H (74-99) mg/dL POC Glucose (mg/dL) 112 H (75-99) mg/dL Calcium 7.4 L (8.4-10.2) mg/dL Total Protein 4.3 L (6.3-8.2) g/dL Albumin 1.8 L (3.5-5.0) g/dL Assessment and Plan Assessment: Postoperative respiratory failure, requiring intubation and mechanical ventilation, S/P extubation on 10/21/2021. Postoperative day #9, status post exploratory laparotomy, repair of duodenal ulcer, and pyloroplasty for GI bleed. Massive upper GI bleed, status post surgery. Evolving large right MCA territory infarct. Chronic cellulitis lower extremities. Acute urinary tract infection. Type 2 diabetes mellitus. History of CVA. Toxic/metabolic encephalopathy. Sepsis, with septic shock. Cardiomyopathy with LV dysfunction. Plan: Plan dated 10/21/2021. The patient remains on a small dose of norepinephrine. The patient's also on dexmedetomidine for agitation. Today, we will stop the sedation, and do a daily interruption of sedation, trial. The patient be placed on PSV 5 CPAP of 5. She may or may not be ready for extubation. Weaning parameters will be done. Labs, x-rays, medications are reviewed. She continues on GI and DVT prophylaxis. Labs, x-rays, medications are reviewed. Prognosis is guarded. We will continue to follow and make recommendations where appropriate. Plan dated 10/22/2021. The patient was extubated successfully yesterday, on October 21. The patient is still very weak. She remains on norepinephrine at less than 3 mcg/m. Lactated Ringer's which is running at 100 mL an hour, will be turned down to KVO. The patient does have diffuse edema. I have asked the nurses to go very gentle with her pain medications, and also make sure that she has an incentive spirometer in the room. The patient's overall prognosis remains guarded. Labs x-rays a medications are reviewed. Continue to follow the patient and make recommendations where appropriate. Plan dated 10/23/2021 The patient was seen in evaluated, in room 257. The [address] from yesterday is reviewed. It does show an evolving right MCA territory infarct. The patient currently is on lactated Ringer's at 20 mL an hour, and TPN at 65 mL an hour. Norepinephrine has been weaned down. She remains on 2 L nasal cannula. Labs, x-rays, and medications are reviewed. Prognosis is certainly guarded. We will continue to follow the patient make recommendations were appropriate. Plan dated 10/24/2021. The patient is again examined, in room 257, ICU. The brain computed tomography scan from October 22 was reviewed. The patient currently remains on some lactated Ringer's, and TPN. Norepinephrine has been weaned off. She remains on 2 L nasal cannula. Additional recommendations and suggestions are forthcoming. Labs, x-rays, medications are all reviewed. The patient's overall prognosis remains guarded. I believe she is well enough to leave the intensive care unit. We will continue to follow the patient and make recommendations where appropriate. Plan dated 10/25/2021. The patient is again seen in room 257. She's doing much better. She remains on TPN at 90 mL an hour. She is on 2 L nasal cannula. Saturations are 98%. Labs, x-rays, and medications are reviewed. The patient could be discharged out to the general medical floor. We encourage her to continue with incentive spi rometry. We will continue to follow the patient and make recommendations where appropriate. Prognosis is guarded. Time with Patient: Less than 30
[2021-10-25 11:13] LABS: Glucose,Whole Blood 195 mg/dL (75-99)
[2021-10-25] MEDS ORDERED: FAT EMULSION 20% 500 ML IV SCH (12:00)
[2021-10-25] MEDS: ANIDULAFUNGIN 100 MG in SODIUM CHLORIDE 0.9% 100 ML IVPB SCH (12:16)
--- NOTE | 2021-10-25 14:30 | P.PN ---
Subjective Progress Note Date: 10/25/21 CHIEF COMPLAINT: Duodenal ulcer HISTORY OF PRESENT ILLNESS: Patient is transferred out of the ICU today. She sitting at bedside chair. She is postop day #9 status post Exploratory laparotomy with repair of perforated duodenal ulcer and control of bleeding, pyloroplasty. Patient having bowel movements. She's currently on a clear liquid diet. She is confused. Afebrile. WBC 6.7 hemoglobin is up from 7-8.1 platelets are 467 sodium is 134 potassium is 4.4 creatinine 0.67 PHYSICAL EXAM: VITAL SIGNS: Reviewed. GENERAL: Well-developed in no acute distress. HEENT: No sclera icterus. Extraocular movements grossly intact. Moist buccal mucosa. Head is atraumatic, normocephalic. MARIA LUISA drain 60 mL serous fluid ABDOMEN: Soft. nondistended. Incisional dressing clean and dry. Abdominal binder in place. ASSESSMENT: 1. Duodenal ulcer with perforation and active bleeding status post Exploratory laparotomy with repair of perforated duodenal ulcer and control of bleeding, pyloroplasty. PLAN: -Continue clear liquid diet. No carbonated beverages -Continue PPI -Continue to monitor hemoglobin -Antibiotics per ID service -Continue TPN for nutrition support -Continue supportive care -DVT prophylaxis Lovenox Physician [employer] Control note has been reviewed by physician. Signing provider agrees with the documented findings, assessment, and plan of care. 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 Based on total visit time, I have performed more than 50% of the visit. As above: Patient remains confused although seems quite alert. Tolerating clear liquids. Abdomen with minimal tenderness, MARIA LUISA draining serosanguineous. Continue antiacid therapy. Increase activity. Objective - Vital Signs Vital signs: Vital Signs Temp 98.4 F 10/25/21 10:34 Pulse 85 10/25/21 10:34 Resp 19 10/25/21 10:34 BP 104/63 10/25/21 10:34 Pulse Ox 97 10/25/21 10:34 Intake & Output 10/24/21 10/25/21 10/25/21 18:59 06:59 18:59 Intake Total 95 2370 200 Output Total 60 1275 660 Balance 35 1095 -460 Weight 90 kg 90 kg Intake: IV 95 1320 200 0.9 Sodium Chloride 20 240 Cefepime 2 gm In Sodium 100 Chloride 0.9% 100 ml @ 25 mls/hr IVPB Q8HR [facility] Rx# :[id number] [facility], Adult No.4 with Vit 75 K 10 ml Trace (Conc-1Ml/ Dose) 1 ml Sodium Chloride 2.5MEQ/ml Vial 40 meq Potassium Chloride 40 meq Calcium Gluconate 1.5 gm Magnesium Sulfate gm 2 gm Potassium Phosphate 15 mmol In Amino Acids 5 %/Dextrose 20 % 1,000 ml @ 75 mls/hr IV .BY DURATION [facility] Rx#: [id number] [facility], Adult No.4 with Vit 1080 K 10 ml Trace (Conc-1Ml/ Dose) 1 ml Sodium Chloride 2.5MEQ/ml Vial 45 meq Potassium Chloride 40 meq Calcium Gluconate 1.5 gm Magnesium Sulfate gm 0.5 gm Potassium Phosphate 15 mmol In Amino Acid 5%-D15w+Lytes* E* 1,000 ml @ 90 mls/hr IV .BY DURATION [facility] Rx#: [id number] metroNIDAZOLE-NS PMX 500 100 mg In Saline 1 100ml.bag @ 100 mls/hr IVPB Q8HR [facility] Rx#:[id number] Intake, IV Titration 1050 Amount Sodium Chloride 2.5MEQ/ml 1050 Vial 45 meq Potassium Chloride 40 meq Calcium Gluconate 1.5 gm Magnesium Sulfate gm 0.5 gm Potassium Phosphate 15 mmol In Amino Acid 5%- D15w 1,000 ml @ 90 mls/hr IV .BY DURATION [facility] Rx#: [id number] Output: Drainage 75 60 Right Upper Abdomen 75 60 Urine 60 1200 600 Other: Voiding Method Indwelling Catheter Indwelling Catheter External Catheter # Voids 1 1 # Bowel Movements 1 ABP, PAP, CO, CI - Last Documented Arterial Blood Pressure 97/69 - Labs CBC & Chem 7: 10/25/21 04:20 10/25/21 04:20 Labs: Abnormal Lab Results - Last 24 Hours (Table) 10/24/21 10/24/21 10/25/21 Range/Units 18:54 23:45 04:20 RBC (3.80-5.40) m/uL Hgb (11.4-16.0) gm/dL Hct (34.0-46.0) % MCHC (31.0-37.0) g/dL RDW (11.5-15.5) % Plt Count (150-450) k/uL Sodium 134 L (137-145) mmol/L BUN 24 H (7-17) mg/dL Glucose 139 H (74-99) mg/dL POC Glucose (mg/dL) 127 H 135 H (75-99) mg/dL Calcium 7.4 L (8.4-10.2) mg/dL Total Protein 4.3 L (6.3-8.2) g/dL Albumin 1.8 L (3.5-5.0) g/dL 10/25/21 10/25/21 10/25/21 Range/Units 04:20 05:41 11:11 RBC 2.75 L (3.80-5.40) m/uL Hgb 8.1 L (11.4-16.0) gm/dL Hct 26.7 L (34.0-46.0) % MCHC 30.2 L (31.0-37.0) g/dL RDW 17.3 H (11.5-15.5) % Plt Count 467 H (150-450) k/uL Sodium (137-145) mmol/L BUN (7-17) mg/dL Glucose (74-99) mg/dL POC Glucose (mg/dL) 112 H 195 H (75-99) mg/dL Calcium (8.4-10.2) mg/dL Total Protein (6.3-8.2) g/dL Albumin (3.5-5.0) g/dL
[2021-10-25 16:44] LABS: Glucose,Whole Blood 164 mg/dL (75-99)
--- NOTE | 2021-10-25 16:56 | P.PN ---
Subjective Progress Note Date: 10/25/21 The patient is seen at bedside and is doing better on a daily basis. She was downgraded out of ICU to floors. Objective - Vital Signs Vital signs: Vital Signs Temp 98.7 F 10/25/21 14:00 Pulse 86 10/25/21 14:00 Resp 19 10/25/21 14:00 BP 117/72 10/25/21 14:00 Pulse Ox 99 10/25/21 14:00 Intake & Output 10/24/21 10/25/21 10/25/21 18:59 06:59 18:59 Intake Total 95 2370 200 Output Total 60 1275 660 Balance 35 1095 -460 Weight 90 kg 90 kg Intake: IV 95 1320 200 0.9 Sodium Chloride 20 240 Cefepime 2 gm In Sodium 100 Chloride 0.9% 100 ml @ 25 mls/hr IVPB Q8HR [facility] Rx# :[id number] Mvi, Adult No.4 with Vit 75 K 10 ml Trace (Conc-1Ml/ Dose) 1 ml Sodium Chloride 2.5MEQ/ml Vial 40 meq Potassium Chloride 40 meq Calcium Gluconate 1.5 gm Magnesium Sulfate gm 2 gm Potassium Phosphate 15 mmol In Amino Acids 5 %/Dextrose 20 % 1,000 ml @ 75 mls/hr IV .BY DURATION [facility] Rx#: [id number] Mvi, Adult No.4 with Vit 1080 K 10 ml Trace (Conc-1Ml/ Dose) 1 ml Sodium Chloride 2.5MEQ/ml Vial 45 meq Potassium Chloride 40 meq Calcium Gluconate 1.5 gm Magnesium Sulfate gm 0.5 gm Potassium Phosphate 15 mmol In Amino Acid 5%-D15w+Lytes* E* 1,000 ml @ 90 mls/hr IV .BY DURATION [facility] Rx#: [id number] metroNIDAZOLE-NS PMX 500 100 mg In Saline 1 100ml.bag @ 100 mls/hr IVPB Q8HR [facility] Rx#:[id number] Intake, IV Titration 1050 Amount Sodium Chloride 2.5MEQ/ml 1050 Vial 45 meq Potassium Chloride 40 meq Calcium Gluconate 1.5 gm Magnesium Sulfate gm 0.5 gm Potassium Phosphate 15 mmol In Amino Acid 5%- D15w 1,000 ml @ 90 mls/hr IV .BY DURATION [facility] Rx#: [id number] Output: Drainage 75 60 Right Upper Abdomen 75 60 Urine 60 1200 600 Other: Voiding Method Indwelling Catheter Indwelling Catheter External Catheter # Voids 1 1 # Bowel Movements 1 ABP, PAP, CO, CI - Last Documented Arterial Blood Pressure 97/69 - Exam GENERAL: The patient is lying in bed and is not in acute distress. NEUROLOGICAL: Limited because of cooperation. Higher mental function: The patient is mildly drowsy but is awakeable to voice. She is oriented to self, place. She correctly states current month but states the year is 1921. She is following simple commands. No aphasia. No neglect. Cranial nerves: The pupils are round, equal and reactive to light. Visual florence: left homonmyous hemianopsia to confrontation. . EOM intact and no nystagmus. No dysarthria. Could not assess.No facial weakness. Motor: The strength is left side is 4+. Otherwise 5/5 on right. Sensation: Normal to touch. SOME OF THE WORK-UP: * 2-D echocardiogram revealed inferoseptal hypokinesis or aortic sclerosis with mild aortic stenosis and mild mitral and mild to moderate tricuspid regurgitation. EF is 40-45%. Grade 1 diastolic dysfunction. Mid to basal inferoseptal is hypokinetic. * Carotid Doppler revealed no significant common or internal carotid artery stenosis. * Lipid panel cholesterol 159, LDL 101, HDL 28.3 and triglycerides 146. Patient's hemoglobin A1c 8.0. TSH slightly low 0.222 with normal free T4 1 0.63. * UA shows large amount of leukocyte Estrace. Urine growing E. coli. - Labs CBC & Chem 7: 10/25/21 04:20 10/25/21 04:20 Labs: Abnormal Lab Results - Last 24 Hours (Table) 10/24/21 10/24/21 10/25/21 Range/Units 18:54 23:45 04:20 RBC (3.80-5.40) m/uL Hgb (11.4-16.0) gm/dL Hct (34.0-46.0) % MCHC (31.0-37.0) g/dL RDW (11.5-15.5) % Plt Count (150-450) k/uL Sodium 134 L (137-145) mmol/L BUN 24 H (7-17) mg/dL Glucose 139 H (74-99) mg/dL POC Glucose (mg/dL) 127 H 135 H (75-99) mg/dL Calcium 7.4 L (8.4-10.2) mg/dL Total Protein 4.3 L (6.3-8.2) g/dL Albumin 1.8 L (3.5-5.0) g/dL 10/25/21 10/25/21 10/25/21 Range/Units 04:20 05:41 11:11 RBC 2.75 L (3.80-5.40) m/uL Hgb 8.1 L (11.4-16.0) gm/dL Hct 26.7 L (34.0-46.0) % MCHC 30.2 L (31.0-37.0) g/dL RDW 17.3 H (11.5-15.5) % Plt Count 467 H (150-450) k/uL Sodium (137-145) mmol/L BUN (7-17) mg/dL Glucose (74-99) mg/dL POC Glucose (mg/dL) 112 H 195 H (75-99) mg/dL Calcium (8.4-10.2) mg/dL Total Protein (6.3-8.2) g/dL Albumin (3.5-5.0) g/dL Microbiology - Last 24 Hours (Table) 10/13/21 14:20 Fungal Culture - Preliminary Leg - Right Assessment and Plan Assessment: 1. Large, subacute, right cerebral hemispheric infarct, involving the right parietal temporal region-patient does have some left-sided visual field deficits. 2. Toxic encephalopathy/delirium secondary to infection--improving 3. Acute UTI. Urine cultures growing E. coli. 4. New onset diabetes 5. Tobacco use 6. Weeping ulcers of the lower extremities, status post debridement 7. Status post exploratory laparotomy with repair of perforated duodenal ulcer, control of bleeding and pyloroplasty 10/16/2021. Plan: * Antiplatelet medications held because of GI bleed. GI and surgical input appreciated. If safe can be started on ASA 81mg or Plavix 75mg (avoid dual because of GI bleed). Patient on Protonix 40 mg IV twice a day. Continue Lipitor 40 mg daily. * Repeat CT head on 10/22/21 to see extend of patient's stroke: Was reported as a volunteer large right MCA territory infarct M starting interval change. A new tiny acute infarct cannot be excluded by the CT. I personally reviewed the CT of the head and I don't see any new acute or subacute ischemia I do agree there is involving the of the right MCA which is expected. Clinically the patient is improving so I discussed this with the patient's and the is lungs the patient clinically improves that is a good sign. * Patient apparently has been declining MRA of the brain that was recommended on the last visit and ordered by Dr. Andrew. I will disregard MRA since will not change management analyst. * PT, OT and speech therapy are on board. * continue Lipitor 40 mg daily. Patient's hemoglobin A1c 8.0. Recommend optimize control of diabetes to target A1c <7.0. * ID following. * Will defer the rest of medical management to the primary team and ICU team. * For DVT prophylaxis on Lovenox. The plan is discussed with the patient's who is at bedside. Will follow-up with patient sporadically. Dr. Schwartz is covering neurology service tomorrow AM then Dr. Andrew starts Thursday. Devante Newman M.D. Neuro-Hospitalist Time with Patient: Less than 30
--- NOTE | 2021-10-25 17:12 | P.PN ---
Subjective Progress Note Date: 10/25/21 Pt doing well. Now on the floor. Advance to clear liquid diet, ongoing TPN Gen: Awake, alert, confused HEENT: normocephalic, atraumatic, moist mucous membranes Resp: Breathing comfortably without accessory muscle use, symmetric air expansion CVS: good distal perfusion x 4, : no SPT, no CVAT, martinez catheter is present MSK: + pitting edema, no clubbing Assessment/Plan: #Acute hypoxic respiratory failure #Acute on Chronic Systolic Heart Failure Exacerbation, EF 40-45% -Pulmonary following, appreciate recs -continue lasix 20mg IV BID -On NC s/p extubation on 10/22, doing well. #Massive upper GI bleeding secondary to bleeding duodenal ulcer #Subacute Stroke -Status post respiratory laparotomy with repair of perforated duodenal ulcer and pyloroplasty by general surgeon on September 16 -Aspirin and Plavix on hold -Timing of ASA or Plavix per surgery -Neurology following #Septic Shock #Toxic Encephalopathy #Bilateral lower extremity cellulitis secondary to nonhealing vascular status ulcers, Necrotic #Acute urinary tract infection on presentation -Status post debridement with deep tissue culture by vascular surgery with wound Cx growing polymicrobial organisms, group A strep, pseudomonas, E coli, MSSA -UCx with E colli -Resume IV cefepime, flagyl, eraxis per ID -Infectious disease following #Type 2 diabetes -SSI aspart q6h #History of subacute CVA -Aspirin and Plavix on hold secondary to above Pt is Full Code DVT PPx on hold due to bleed Objective - Vital Signs Vital signs: Vital Signs Temp 98.7 F 10/25/21 14:00 Pulse 86 10/25/21 14:00 Resp 19 10/25/21 14:00 BP 117/72 10/25/21 14:00 Pulse Ox 99 10/25/21 14:00 Intake & Output 10/24/21 10/25/21 10/25/21 18:59 06:59 18:59 Intake Total 95 2370 200 Output Total 60 1275 660 Balance 35 1095 -460 Weight 90 kg 90 kg Intake: IV 95 1320 200 0.9 Sodium Chloride 20 240 Cefepime 2 gm In Sodium 100 Chloride 0.9% 100 ml @ 25 mls/hr IVPB Q8HR [facility] Rx# :[id number] Mvi, Adult No.4 with Vit 75 K 10 ml Trace (Conc-1Ml/ Dose) 1 ml Sodium Chloride 2.5MEQ/ml Vial 40 meq Potassium Chloride 40 meq Calcium Gluconate 1.5 gm Magnesium Sulfate gm 2 gm Potassium Phosphate 15 mmol In Amino Acids 5 %/Dextrose 20 % 1,000 ml @ 75 mls/hr IV .BY DURATION [facility] Rx#: [id number] Mvi, Adult No.4 with Vit 1080 K 10 ml Trace (Conc-1Ml/ Dose) 1 ml Sodium Chloride 2.5MEQ/ml Vial 45 meq Potassium Chloride 40 meq Calcium Gluconate 1.5 gm Magnesium Sulfate gm 0.5 gm Potassium Phosphate 15 mmol In Amino Acid 5%-D15w+Lytes* E* 1,000 ml @ 90 mls/hr IV .BY DURATION [facility] Rx#: [id number] metroNIDAZOLE-NS PMX 500 100 mg In Saline 1 100ml.bag @ 100 mls/hr IVPB Q8HR [facility] Rx#:[id number] Intake, IV Titration 1050 Amount Sodium Chloride 2.5MEQ/ml 1050 Vial 45 meq Potassium Chloride 40 meq Calcium Gluconate 1.5 gm Magnesium Sulfate gm 0.5 gm Potassium Phosphate 15 mmol In Amino Acid 5%- D15w 1,000 ml @ 90 mls/hr IV .BY DURATION [facility] Rx#: [id number] Output: Drainage 75 60 Right Upper Abdomen 75 60 Urine 60 1200 600 Other: Voiding Method Indwelling Catheter Indwelling Catheter External Catheter # Voids 1 1 # Bowel Movements 1 ABP, PAP, CO, CI - Last Documented Arterial Blood Pressure 97/69 - Labs CBC & Chem 7: 10/25/21 04:20 10/25/21 04:20 Labs: Abnormal Lab Results - Last 24 Hours (Table) 10/24/21 10/24/21 10/25/21 Range/Units 18:54 23:45 04:20 RBC (3.80-5.40) m/uL Hgb (11.4-16.0) gm/dL Hct (34.0-46.0) % MCHC (31.0-37.0) g/dL RDW (11.5-15.5) % Plt Count (150-450) k/uL Sodium 134 L (137-145) mmol/L BUN 24 H (7-17) mg/dL Glucose 139 H (74-99) mg/dL POC Glucose (mg/dL) 127 H 135 H (75-99) mg/dL Calcium 7.4 L (8.4-10.2) mg/dL Total Protein 4.3 L (6.3-8.2) g/dL Albumin 1.8 L (3.5-5.0) g/dL 10/25/21 10/25/21 10/25/21 Range/Units 04:20 05:41 11:11 RBC 2.75 L (3.80-5.40) m/uL Hgb 8.1 L (11.4-16.0) gm/dL Hct 26.7 L (34.0-46.0) % MCHC 30.2 L (31.0-37.0) g/dL RDW 17.3 H (11.5-15.5) % Plt Count 467 H (150-450) k/uL Sodium (137-145) mmol/L BUN (7-17) mg/dL Glucose (74-99) mg/dL POC Glucose (mg/dL) 112 H 195 H (75-99) mg/dL Calcium (8.4-10.2) mg/dL Total Protein (6.3-8.2) g/dL Albumin (3.5-5.0) g/dL 10/25/21 Range/Units 16:41 RBC (3.80-5.40) m/uL Hgb (11.4-16.0) gm/dL Hct (34.0-46.0) % MCHC (31.0-37.0) g/dL RDW (11.5-15.5) % Plt Count (150-450) k/uL Sodium (137-145) mmol/L BUN (7-17) mg/dL Glucose (74-99) mg/dL POC Glucose (mg/dL) 164 H (75-99) mg/dL Calcium (8.4-10.2) mg/dL Total Protein (6.3-8.2) g/dL Albumin (3.5-5.0) g/dL Microbiology - Last 24 Hours (Table) 10/13/21 14:20 Fungal Culture - Preliminary Leg - Right
[2021-10-25] MEDS: HYDROcodone/APAP 10-325MG 1 EACH TAB PO PRN (21:58)
[2021-10-26] MEDS: INSULIN ASPART (NovoLOG) 100 UNIT/ML VIAL SQ SCH ×4 (00:02→18:24)
[2021-10-26] MEDS: metroNIDAZOLE-NS PMX 500 MG in SALINE 1 100ML.BAG IVPB SCH ×3 (00:03→17:19)
[2021-10-26 00:08] LABS: Glucose,Whole Blood 178 mg/dL (75-99)
[2021-10-26] MEDS: 1: MVI, ADULT NO.4 WITH VIT K 10 ML, TRACE (CONC-1ML/DOSE) 1 ML, SODIUM CHLORIDE 2.5MEQ/ IV SCH ×16 (05:22→18:23)
[2021-10-26 05:33] LABS: Glucose,Whole Blood 167 mg/dL (75-99)
[2021-10-26 07:16] LABS: ALT 10 U/L (4-34); AST 25 U/L (14-36); African American GFR (CKD) >90 (>60 ml/min/1.73 sqM); Albumin 1.8 g/dL (3.5-5.0); Albumin/Globulin Ratio 0.7; Alkaline Phosphatase 74 U/L (38-126); Anion Gap 4 mmol/L; Blood Urea Nitrogen 22 mg/dL (7-17); Calcium 7.4 mg/dL (8.4-10.2); Carbon Dioxide 23 mmol/L (22-30); Chloride 106 mmol/L (98-107); Globulin 2.5 g/dL; Glucose 148 mg/dL (74-99); Magnesium 1.7 mg/dL (1.6-2.3); Non-African American GFR(CKD) >90 (>60 ml/min/1.73 sqM); Phosphorus 3.1 mg/dL (2.5-4.5); Potassium 4.2 mmol/L (3.5-5.1); Sodium 133 mmol/L (137-145); Total Bilirubin 0.4 mg/dL (0.2-1.3); Total Protein 4.3 g/dL (6.3-8.2)
[2021-10-26] MEDS: ENOXAPARIN 40 MG/0.4 ML SYRINGE SQ SCH (07:38)
[2021-10-26] MEDS: CEFEPIME 2 GM in SODIUM CHLORIDE 0.9% 100 ML IVPB SCH ×2 (07:39→17:18)
[2021-10-26] MEDS: FUROSEMIDE 10 MG/ML 2 ML VIAL IV SCH ×2 (07:39→21:22)
[2021-10-26] MEDS: GABAPENTIN 100 MG CAP PO SCH ×3 (07:39→21:22)
[2021-10-26] MEDS: PANTOPRAZOLE 40 MG/10 ML VIAL IVP SCH ×2 (07:39→21:22)
[2021-10-26] MEDS: ATORVASTATIN 40 MG TAB PO SCH (07:39)
--- NOTE | 2021-10-26 08:59 | PN ---
PROGRESS NOTE 66-year-old white female patient had a chronic wound. Patient went for bilateral debridement. We have been changing the dressing with Aquacel silver. The wound is clean and granulating. The patient is more alert today. We have been using Aquacel Silver. We will change the dressing every 48 hours. The wound is granulating and improving. MMODL / IJN: [id number] /
--- NOTE | 2021-10-26 11:31 | P.PN ---
Subjective Progress Note Date: 10/26/21 Patient was reevaluated today on 10/18/2021, remains intubated and mechanically ventilated. She is on assist control rate of 16, while at 400 FiO2 40% PEEP of 5. ABG showed a pO2 of 107 pCO2 39 pH of 7.3. Patient remains on propofol at 55 mcg/kg/m she is also on TPN and she still requiring norepinephrine 0.16 mcg/kg/m. Hemoglobin dropped yesterday, and now she is receiving another unit of packed RBCs. Hoping that her blood pressure would improve after the transfusion, and we'll continue to taper down the norepinephrine. No rectal bleeding, patient does have coffee ground material in the nasogastric tube output. Patient is sedated, however when the propofol was placed on hold, she became extremely agitated, and I recommended that we continue sedating the patient, and she is not quite ready for weaning and extubation at this point yet. Not to mention the patient is sedated requiring norepinephrine for hemodynamic support. We'll continue to try on a daily basis weaning possible off mechanical ventilation. In the meantime we'll continue TPN, continue nutritional support, continue treatment for her ulcer, he is on Protonix, and I plan to start the patient on Protonix 40 mg subcu daily, cleared by surgery for subcu heparin. Chest x-ray showed mild interstitial changes today. Possibly mild interstitial edema. WBC count is down to 37.4 hemoglobin is 6.8 today. Electrolytes are unremarkable except for slightly low potassium of 3.5. ABG showed a pO2 of 107 pCO2 of 39 pH of 7.38. Patient is on 50% FiO2. Cut down to 40% Reevaluated today on 10/19/2021, patient remains intubated, mechanically ventilated, remains norepinephrine dependent, blood pressure is marginal, she by however the dose of norepinephrine is down to 0.08 mcg/kg/m. Her ventilator settings are assist control rate of 1612 volume 400 FiO2 40% and PEEP of 5. ABG showed a pO2 of 93 pCO2 33 pH of 7.49, hence no changes were made in the ventilator settings. Her leukocytosis is improving. Patient has excellent urine output, remains on Lasix intermittently as she seems to be quite swollen and edematous, patient received significant amount of fluid since admission. She is on Lasix at 20 mg every 12 hours. Patient is receiving TPN at 65 mL per hour. She is on propofol at 50 mcg/kg/m, norepinephrine 0.08 and she is on antibiotics in the form of cefepime and Flagyl and Eraxis. Chest x-ray showed mild interstitial changes. WBC count is 27.3 hemoglobin is 7.6. Basic metabolic profile is unremarkable, potassium is 3.4 Reevaluated today on 10/20/2021, patient remains in the ICU, intubated and mechani ginny ventilated. She is sedated, she is on propofol at 45 mcg/kg/m. Still requiring norepinephrine at 0.07 mcg/kg/m at one point she was over 0.18 mcg/kg/m. Patient remains on cefepime, Eraxis and Flagyl. Remains on TPN, and she is still receiving lactated Ringer's at 100 mL per hour. Ventilator jenkins the patient is on assist control rate of 16 tidal volume 400 FiO2 40% PEEP of 5 ABG showed a pO2 of 95 pCO2 41 pH of 7.47, FiO2 was cut down to 35%. Chest x- ray is showing mild interstitial edema however the patient has excellent urine output and she is on a maintenance dose of Lasix. And her oxygenation based on that ABG seems to be improving. Her WBC count is improving down to 24.6, h emoglobin 7.6. Electrolytes and renal profile are normal. Progress note dated 10/21/2021. This is a patient was initially admitted back on October 11. She came into the hospital with cellulitis. She came to the intensive care unit on October 15, and was intubated on October 16, respiratory failure severe GI bleeding. She went to the operating room, on the same day, and had an exploratory laparotomy, repair to Myke also, and pyloroplasty. She remains on mechanical ventilator. She is on the volume assist control, rate 16, tidal volume 400, FiO2 35%, PEEP of 5. Blood gases show pO2 of 95, pCO2 41, and pH is 7.51. Blood gases are consistent with a metabolic alkalosis. She is on norepinephrine at 4 mcg/m, Precedex at 0.1 mcg/kg/h, lactated Ringer's at 100 mL an hour, and TPN at 65 mL an hour. W isaac count 17, hemoglobin 7.3, hematocrit 22.8, platelet count 2 49,000. Sodium 137, potassium 4, chlorides 103, CO2 32, anion gap 2, BUN 23, and creatinine 0.68. Albumin is only 1.5. Microbiologic studies are reviewed. Chest x-ray shows some increased density at the left lung base, and some pulmonary vascular congestion and interstitial lung markings to be more prominent. Progress note dated 10/22/2021. This is a patient who was initially admitted back on October 11. She came into the hospital with cellulitis of the lower extremities. She came to the intensive care unit on October 15, and was intubated on October 16, for respiratory failure, and severe GI bleeding. She went to the operating room on the same day, and had exploratory laparotomy, repair to the duodenal ulcer, and pyloroplasty. Yesterday, the patient was extubated from mechanical ventilator, with reasonable blood gases and reasonable weaning parameters. She remains in the intensive care unit. She is very weak. She's currently on 2 L nasal cannula. She remains on lactated Ringer's at 100 mL an hour, and TPN at 65 mL an hour. The patient's currently on norepinephrine at 2.7 mcg/m. The patient's white count is 15.6, hemoglobin 7.3, hematocrit 22.9, platelet count was normal. Sodium 136, potassium 3.6, chlorides 100, CO2 34, anion gap 2, BUN 19, creatinine 0.66. Albumin is 1.6. Chest x-rays consistent with mild fluid overload/CHF. Progress note dated 10/23/2021. 66-year-old female dated back on October 11. She initially came to the hospital with lower extremity cellulitis. She came to the intensive care unit on October 15, and was intubated on October 16 for respiratory failure and severe GI bleeding. She went to the operating room on the same day had exploratory laparotomy, repair of duodenal ulcer, and pyloroplasty. The patient was extubated on October 21. Currently, she is on 2 L nasal cannula. She's getting lactated Ringer's at 20 mL an hour and TPN at 65 mL an hour norepinephrine has been weaned off. White count 10.9, hemoglobin 7.2, hematocrit 22.8, platelet count 392,000. Sodium 134, potassium 3.7, chlorides 100, CO2 35, BUN 20, creatinine 0.7. Albumin is only 1.6. Brain CT from October 22 shows an evolving large right MCA territory infarct demonstrating interval changes as described. A new tiny acute infarct cannot be excluded by the computed tomography scan. Progress note dated 10/24/2021. 66-year-old female, admitted back on October 11. She initially came to the hospital with lower extremity cellulitis. She came to the intensive care unit on October 15, and was intubated on October 16, for respiratory failure and severe GI bleeding. She went to the operating room on the same day, and had an exploratory laparotomy, repair of duodenal ulcer, and pyloroplasty. She was extubated successfully, on 10/21/2021. Currently, she is on 2 L nasal cannula. She's getting TPN at 67 mL an hour, and saline at 20 mL an hour. She is taking clear liquids by mouth. She remains on Flagyl, Eraxis, and cefepime. Brain CT from October 22 shows an evolving large right MCA territory infarct. White count 7. 4, hemoglobin 7, hematocrit 22.5, and platelet count 461,000. Sodium 135, potassium 4.1, chlorides 101, CO2 29, BUN 22, creatinine 0.69. Progress note dated 10/25/2021. 66-year-old female admitted back on October 11. She initially came to the hospital for lower extremity cellulitis. She came to the ICU, on October 15, and was intubated on October 16, for respiratory failure and severe GI bleeding. She went to the operating room on the same day, and had an exploratory laparotomy, repair of duodenal ulcer, and pyloroplasty. She was successfully extubated on October 21. Currently, she is on 2 L. She's getting TPN at 90 mL an hour, and saline at 20 mL an hour. White count 6.7, hemoglobin 8.1, hematocrit 26.7, and platelet count 467,000. Sodium 134, potassium 4.4, chlorides 104, CO2 28, BUN 24, creat inine 0.67. Albumin is only 1.8. No chest x-ray today. The patient is a overflow patient. The patient is seen today in 10/26/2021 in follow-up on the regular medical floor. She is currently resting comfortably in bed. Awake and alert in no acute distress. Maintaining O2 saturations in the 90s on 2 L/m per nasal cannula. Postoperative day #10. She is currently on TPN at 87 ML's per hour. She is status post 5 units of packed red blood cells, 2 units of fresh frozen plasma and 1 unit of platelets this admission. Sodium 133. Potassium 4.2. BUN 22. Creatinine 0.61. Glucose 148. Currently in a -1.1 L balance. She remains afebrile. Hemodynamically stable. Continued on Eraxis, cefepime and Flagyl. Lovenox for DVT prophylaxis. Tolerating clear liquids. Objective - Vital Signs Vital signs: Vital Signs Temp 98.4 F 10/26/21 08:00 Pulse 80 10/26/21 08:00 Resp 18 10/26/21 08:00 BP 107/60 10/26/21 08:00 Pulse Ox 99 10/26/21 08:00 Intake & Output 10/25/21 10/26/21 10/26/21 18:59 06:59 18:59 Intake Total 600 Output Total 660 1100 1100 Balance -60 -1100 -1100 Weight 90 kg Intake: IV 200 Cefepime 2 gm In Sodium 100 Chloride 0.9% 100 ml @ 25 mls/hr IVPB Q8HR [facility] Rx# :[id number] metroNIDAZOLE-NS PMX 500 100 mg In Saline 1 100ml.bag @ 100 mls/hr IVPB Q8HR [facility] Rx#:[id number] Oral 400 Output: Drainage 60 Right Upper Abdomen 60 Urine 600 1100 1100 Other: Voiding Method External Catheter External Catheter External Catheter # Voids 1 # Bowel Movements 1 ABP, PAP, CO, CI - Last Documented Arterial Blood Pressure 97/69 - Exam GENERAL EXAM: Alert, pleasant 66-year-old female, on 2 L nasal cannula, fairly comfortable in no apparent distress. HEAD: Normocephalic. EYES: Normal reaction of pupils, equal size. NOSE: Clear with pink turbinates. THROAT: No erythema or exudates. NECK: No masses, no JVD. CHEST: No chest wall deformity. LUNGS: Equal air entry with no crackles, wheeze, rhonchi or dullness. CVS: S1 and S2 normal with no audible murmur, regular rhythm. ABDOMEN: Abdominal incision clean dry well approximated, abdominal binder in place. MARIA LUISA drain in place. Normal bowel sounds, no guarding or rigidity. SPINE: No scoliosis or deformity SKIN: No rashes CENTRAL NERVOUS SYSTEM: No focal deficits, tone is normal in all 4 extremities. EXTREMITIES: There is no peripheral edema. No clubbing, no cyanosis. Peripheral pulses are intact. - Labs CBC & Chem 7: 10/25/21 04:20 10/26/21 06:44 Labs: Abnormal Lab Results - Last 24 Hours (Table) 10/25/21 10/26/21 10/26/21 Range/Units 16:41 00:02 05:29 Sodium (137-145) mmol/L BUN (7-17) mg/dL Glucose (74-99) mg/dL POC Glucose (mg/dL) 164 H 178 H 167 H (75-99) mg/dL Calcium (8.4-10.2) mg/dL Total Protein (6.3-8.2) g/dL Albumin (3.5-5.0) g/dL 10/26/21 Range/Units 06:44 Sodium 133 L (137-145) mmol/L BUN 22 H (7-17) mg/dL Glucose 148 H (74-99) mg/dL POC Glucose (mg/dL) (75-99) mg/dL Calcium 7.4 L (8.4-10.2) mg/dL Total Protein 4.3 L (6.3-8.2) g/dL Albumin 1.8 L (3.5-5.0) g/dL Microbiology - Last 24 Hours (Table) 10/13/21 14:20 Fungal Culture - Preliminary Leg - Right Assessment and Plan Assessment: Postoperative respiratory failure, requiring intubation and mechanical ventilation, S/P extubation on 10/21/2021. Postoperative day #10, status post exploratory laparotomy, repair of duodenal ulcer, and pyloroplasty for GI bleed. Massive upper GI bleed, status post surgery. Evolving large right MCA territory infarct. Chronic cellulitis lower extremities. Acute urinary tract infection. Type 2 diabetes mellitus. History of CVA. Toxic/metabolic encephalopathy. Sepsis, with septic shock. Cardiomyopathy with LV dysfunction. Plan: The patient was seen and evaluated Medications and labs reviewed Continued on Eraxis, cefepime, Flagyl Titrate the FiO2 as tolerated Increase the use of the incentive spirometer Increase activity as tolerated Diet per surgical services Remains on TPN for now We will continue to follow I have personally seen and examined the patient, performed the documentation and the assessment and plan as written. Number of minutes spent on the visit: 10.
[2021-10-26 11:42] LABS: Glucose,Whole Blood 161 mg/dL (75-99)
[2021-10-26] MEDS: HYDROcodone/APAP 10-325MG 1 EACH TAB PO PRN (12:16)
--- NOTE | 2021-10-26 12:29 | P.PN ---
Progress Note - Text Progress Note Date: 10/26/21 The patient is resting comfortably in her bed. She feels better today. She is tolerating clear liquid diet. On exam vital signs are stable. Abdomen soft. Incisions clean and intact. Status post repair of duodenal ulcer. Patient will have her diet advanced as tolerated.
--- NOTE | 2021-10-26 13:59 | P.PN ---
Subjective Progress Note Date: 10/26/21 Pt doing well. Now on the floor. Advance diet as tolerated, ongoing TPN. Consider removal of IJ central line in next 1-2 days Gen: Awake, alert, confused HEENT: normocephalic, atraumatic, moist mucous membranes Resp: Breathing comfortably without accessory muscle use, symmetric air expansion CVS: good distal perfusion x 4, : no SPT, no CVAT, martinez catheter is present MSK: + pitting edema, no clubbing Assessment/Plan: #Acute hypoxic respiratory failure #Acute on Chronic Systolic Heart Failure Exacerbation, EF 40-45% -Pulmonary following, appreciate recs -continue lasix 20mg IV BID -On NC s/p extubation on 10/22, doing well. #Massive upper GI bleeding secondary to bleeding duodenal ulcer #Subacute Stroke -Status post respiratory laparotomy with repair of perforated duodenal ulcer and pyloroplasty by general surgeon on September 16 -Aspirin and Plavix on hold -Timing of ASA or Plavix per surgery -Neurology following #Septic Shock #Toxic Encephalopathy #Bilateral lower extremity cellulitis secondary to nonhealing vascular status ulcers, Necrotic #Acute urinary tract infection on presentation -Status post debridement with deep tissue culture by vascular surgery with wound Cx growing polymicrobial organisms, group A strep, pseudomonas, E coli, MSSA -UCx with E colli -Resume IV cefepime, flagyl, eraxis per ID -Infectious disease following #Type 2 diabetes -SSI aspart q6h #History of subacute CVA -Aspirin and Plavix on hold secondary to above Pt is Full Code DVT PPx on hold due to bleed Objective - Vital Signs Vital signs: Vital Signs Temp 98.4 F 10/26/21 08:00 Pulse 80 10/26/21 08:00 Resp 18 10/26/21 08:00 BP 107/60 10/26/21 08:00 Pulse Ox 99 10/26/21 08:00 Intake & Output 10/25/21 10/26/21 10/26/21 18:59 06:59 18:59 Intake Total 600 Output Total 660 1100 1100 Balance -60 -1100 -1100 Weight 90 kg Intake: IV 200 Cefepime 2 gm In Sodium 100 Chloride 0.9% 100 ml @ 25 mls/hr IVPB Q8HR [facility] Rx# :[id number] metroNIDAZOLE-NS PMX 500 100 mg In Saline 1 100ml.bag @ 100 mls/hr IVPB Q8HR [facility] Rx#:[id number] Oral 400 Output: Drainage 60 Right Upper Abdomen 60 Urine 600 1100 1100 Other: Voiding Method External Catheter External Catheter External Catheter # Voids 1 # Bowel Movements 1 ABP, PAP, CO, CI - Last Documented Arterial Blood Pressure 97/69 - Labs CBC & Chem 7: 10/25/21 04:20 10/26/21 06:44 Labs: Abnormal Lab Results - Last 24 Hours (Table) 10/25/21 10/26/21 10/26/21 Range/Units 16:41 00:02 05:29 Sodium (137-145) mmol/L BUN (7-17) mg/dL Glucose (74-99) mg/dL POC Glucose (mg/dL) 164 H 178 H 167 H (75-99) mg/dL Calcium (8.4-10.2) mg/dL Total Protein (6.3-8.2) g/dL Albumin (3.5-5.0) g/dL 10/26/21 10/26/21 Range/Units 06:44 11:41 Sodium 133 L (137-145) mmol/L BUN 22 H (7-17) mg/dL Glucose 148 H (74-99) mg/dL POC Glucose (mg/dL) 161 H (75-99) mg/dL Calcium 7.4 L (8.4-10.2) mg/dL Total Protein 4.3 L (6.3-8.2) g/dL Albumin 1.8 L (3.5-5.0) g/dL Microbiology - Last 24 Hours (Table) 10/13/21 14:20 Fungal Culture - Preliminary Leg - Right
--- NOTE | 2021-10-26 13:59 | P.PN ---
Subjective Progress Note Date: 10/25/21 Principal diagnosis: Bilateral lower extremity venous stasis ulcer and cellulitis Patient is a 66-year-old female who has not seen a physician in 20 years presented to the hospital with significant bilateral lower extremity necrotic wound and secondary cellulitis in this patient who is status post surgical debridement of these wounds in the OR on 10/13/2021. Patient did have a GI bleed could not be controlled through the EGD patient subsequently taken to the OR and status post laparotomy for a bleeding and perforated duodenal ulcer disease on 10/16/2021 On today's evaluation that is 10/25/2021, the patient remains to be afebrile, the patient is hemodynamically stable not requiring any pressor support , the patient is breathing comfortably on nasal cannula Oxygen, patient denies chest pain shortness of breath , the patient did have occasional cough but not bringing up any sputum, no abdominal pain no diarrhea Objective - Vital Signs Vital signs: Vital Signs Temp 98.5 F 10/25/21 08:00 Pulse 78 10/25/21 02:00 Resp 20 10/25/21 08:00 BP 119/60 10/25/21 08:00 Pulse Ox 97 10/25/21 08:00 Intake & Output 10/24/21 10/25/21 10/25/21 18:59 06:59 18:59 Intake Total 95 2370 200 Output Total 60 1275 660 Balance 35 1095 -460 Weight 90 kg 90 kg Intake: IV 95 1320 200 0.9 Sodium Chloride 20 240 Cefepime 2 gm In Sodium 100 Chloride 0.9% 100 ml @ 25 mls/hr IVPB Q8HR [facility] Rx# :[id number] Mvi, Adult No.4 with Vit 75 K 10 ml Trace (Conc-1Ml/ Dose) 1 ml Sodium Chloride 2.5MEQ/ml Vial 40 meq Potassium Chloride 40 meq Calcium Gluconate 1.5 gm Magnesium Sulfate gm 2 gm Potassium Phosphate 15 mmol In Amino Acids 5 %/Dextrose 20 % 1,000 ml @ 75 mls/hr IV .BY DURATION [facility] Rx#: [id number] [facility], Adult No.4 with Vit 1080 K 10 ml Trace (Conc-1Ml/ Dose) 1 ml Sodium Chloride 2.5MEQ/ml Vial 45 meq Potassium Chloride 40 meq Calcium Gluconate 1.5 gm Magnesium Sulfate gm 0.5 gm Potassium Phosphate 15 mmol In Amino Acid 5%-D15w+Lytes* E* 1,000 ml @ 90 mls/hr IV .BY DURATION [facility] Rx#: [id number] metroNIDAZOLE-NS PMX 500 100 mg In Saline 1 100ml.bag @ 100 mls/hr IVPB Q8HR [facility] Rx#:[id number] Intake, IV Titration 1050 Amount Sodium Chloride 2.5MEQ/ml 1050 Vial 45 meq Potassium Chloride 40 meq Calcium Gluconate 1.5 gm Magnesium Sulfate gm 0.5 gm Potassium Phosphate 15 mmol In Amino Acid 5%- D15w 1,000 ml @ 90 mls/hr IV .BY DURATION [facility] Rx#: [id number] Output: Drainage 75 60 Right Upper Abdomen 75 60 Urine 60 1200 600 Other: Voiding Method Indwelling Catheter Indwelling Catheter External Catheter # Voids 1 ABP, PAP, CO, CI - Last Documented Arterial Blood Pressure 97/69 - Exam GENERAL DESCRIPTION: An elderly female lying in bed in no distress RESPIRATORY SYSTEM: Unlabored breathing , decreased breath sounds at bases HEART: S1 S2 regular rate and rhythm , ABDOMEN: Soft , no tenderness EXTREMITIES: Bilateral lower extremity wounds are currently dressed no drainage on the dressing - Labs CBC & Chem 7: 10/25/21 04:20 10/26/21 06:44 Labs: Abnormal Lab Results - Last 24 Hours (Table) 10/24/21 10/24/21 10/24/21 Range/Units 11:40 18:54 23:45 RBC (3.80-5.40) m/uL Hgb (11.4-16.0) gm/dL Hct (34.0-46.0) % MCHC (31.0-37.0) g/dL RDW (11.5-15.5) % Plt Count (150-450) k/uL Sodium (137-145) mmol/L BUN (7-17) mg/dL Glucose (74-99) mg/dL POC Glucose (mg/dL) 140 H 127 H 135 H (75-99) mg/dL Calcium (8.4-10.2) mg/dL Total Protein (6.3-8.2) g/dL Albumin (3.5-5.0) g/dL 10/25/21 10/25/21 10/25/21 Range/Units 04:20 04:20 05:41 RBC 2.75 L (3.80-5.40) m/uL Hgb 8.1 L (11.4-16.0) gm/dL Hct 26.7 L (34.0-46.0) % MCHC 30.2 L (31.0-37.0) g/dL RDW 17.3 H (11.5-15.5) % Plt Count 467 H (150-450) k/uL Sodium 134 L (137-145) mmol/L BUN 24 H (7-17) mg/dL Glucose 139 H (74-99) mg/dL POC Glucose (mg/dL) 112 H (75-99) mg/dL Calcium 7.4 L (8.4-10.2) mg/dL Total Protein 4.3 L (6.3-8.2) g/dL Albumin 1.8 L (3.5-5.0) g/dL Assessment and Plan (1) Cellulitis Current Visit: Yes Status: Acute Code(s): L03.90 - CELLULITIS, UNSPECIFIED SNOMED Code(s): 748158604 Plan: 1patient with bilateral lower extremity nonhealing wound and cellulitis seems to be more of a venous stasis ulcers with secondary cellulitis and likely from gram-positive skin pb less likely gram-negative infection in this patient has not seen a physician for 20 years less likelihood of a MRSA infection. 2 patient is status post surgical debridement and deep culture which are currently growing multiple pathogens including Pseudomonas strep 3patient did have acute GI bleed with evidence of perforated and bleeding duodenal ulcer requiring laparotomy, patient has shown over all clinical improvement, patient white count has normalized and patient will continue with cefepime flagyl and Eraxis and local wound care to the leg as ordered
[2021-10-26] MEDS: ANIDULAFUNGIN 100 MG in SODIUM CHLORIDE 0.9% 100 ML IVPB SCH (14:10)
[2021-10-26 17:53] LABS: Glucose,Whole Blood 163 mg/dL (75-99)
[2021-10-27 00:34] LABS: Glucose,Whole Blood 186 mg/dL (75-99)
[2021-10-27] MEDS: INSULIN ASPART (NovoLOG) 100 UNIT/ML VIAL SQ SCH ×4 (00:51→17:04)
[2021-10-27] MEDS: metroNIDAZOLE-NS PMX 500 MG in SALINE 1 100ML.BAG IVPB SCH ×3 (00:52→16:43)
[2021-10-27] MEDS: CEFEPIME 2 GM in SODIUM CHLORIDE 0.9% 100 ML IVPB SCH ×3 (00:52→16:43)
[2021-10-27] MEDS: 1: MVI, ADULT NO.4 WITH VIT K 10 ML, TRACE (CONC-1ML/DOSE) 1 ML, SODIUM CHLORIDE 2.5MEQ/ IV SCH ×8 (06:03)
[2021-10-27 06:14] LABS: Glucose,Whole Blood 187 mg/dL (75-99)
[2021-10-27] MEDS: PANTOPRAZOLE 40 MG/10 ML VIAL IVP SCH ×2 (07:16→22:00)
[2021-10-27] MEDS: FUROSEMIDE 10 MG/ML 2 ML VIAL IV SCH ×2 (07:16→21:59)
[2021-10-27] MEDS: ENOXAPARIN 40 MG/0.4 ML SYRINGE SQ SCH (07:29)
[2021-10-27] MEDS: GABAPENTIN 100 MG CAP PO SCH ×3 (07:29→21:59)
[2021-10-27] MEDS: ATORVASTATIN 40 MG TAB PO SCH (07:29)
--- NOTE | 2021-10-27 09:58 | P.PN ---
Progress Note - Text Progress Note Date: 10/27/21 Patient is resting comfortably in bed. She denies any significant abdominal pain. Apparent she spent several hours in the chair yesterday. On exam vital signs are stable. Abdomen soft. Incisions clean and intact. Status post repair of duodenal ulcer. Patient is doing well. She'll continue to have supportive care.
[2021-10-27 10:15] LABS: African American GFR (CKD) 105.2 (60.0-200.0); BUN/Creat Ratio 33.94 Ratio (12.00-20.00); Blood Urea Nitrogen 22.4 mg/dL (9.0-27.0); Calcium 7.7 mg/dL (8.7-10.3); Carbon Dioxide 21.5 mmol/L (20.0-27.5); Magnesium 1.8 mg/dL (1.5-2.4); Non-African American GFR(CKD) 90.8 (60.0-200.0); Potassium 4.7 mmol/L (3.5-5.5)
[2021-10-27 11:26] LABS: Glucose,Whole Blood 186 mg/dL (75-99)
[2021-10-27] MEDS: ANIDULAFUNGIN 100 MG in SODIUM CHLORIDE 0.9% 100 ML IVPB SCH (12:25)
--- NOTE | 2021-10-27 12:33 | P.PN ---
Subjective Progress Note Date: 10/27/21 Principal diagnosis: Respiratory failure. Patient was reevaluated today on 10/18/2021, remains intubated and mechanically ventilated. She is on assist control rate of 16, while at 400 FiO2 40% PEEP of 5. ABG showed a pO2 of 107 pCO2 39 pH of 7.3. Patient remains on propofol at 55 mcg/kg/m she is also on TPN and she still requiring norepinephrine 0.16 mcg/kg/m. Hemoglobin dropped yesterday, and now she is receiving another unit of packed RBCs. Hoping that her blood pressure would improve after the transfusion, and we'll continue to taper down the norepinephrine. No rectal bleeding, patient does have coffee ground material in the nasogastric tube output. Patient is sedated, however when the propofol was placed on hold, she became extremely agitated, and I recommended that we continue sedating the patient, and she is not quite ready for weaning and extubation at this point yet. Not to mention the patient is sedated requiring norepinephrine for hemodynamic support. We'll continue to try on a daily basis weaning possible off mechanical ventilation. In the meantime we'll continue TPN, continue nutritional support, continue treatment for her ulcer, he is on Protonix, and I plan to start the patient on Protonix 40 mg subcu daily, cleared by surgery for subcu heparin. Chest x-ray showed mild interstitial changes today. Possibly mild interstitial edema. WBC count is down to 37.4 hemoglobin is 6.8 today. Electrolytes are unremarkable except for slightly low potassium of 3.5. ABG showed a pO2 of 107 pCO2 of 39 pH of 7.38. Patient is on 50% FiO2. Cut down to 40% Reevaluated today on 10/19/2021, patient remains intubated, mechanically ventilated, remains norepinephrine dependent, blood pressure is marginal, she by however the dose of norepinephrine is down to 0.08 mcg/kg/m. Her ventilator settings are assist control rate of 1612 volume 400 FiO2 40% and PEEP of 5. ABG showed a pO2 of 93 pCO2 33 pH of 7.49, hence no changes were made in the vent ilator settings. Her leukocytosis is improving. Patient has excellent urine output, remains on Lasix intermittently as she seems to be quite swollen and edematous, patient received significant amount of fluid since admission. She is on Lasix at 20 mg every 12 hours. Patient is receiving TPN at 65 mL per hour. She is on propofol at 50 mcg/kg/m, norepinephrine 0.08 and she is on antibiotics in the form of cefepime and Flagyl and Eraxis. Chest x-ray showed mild interstitial changes. WBC count is 27.3 hemoglobin is 7.6. Basic metabolic profile is unremarkable, potassium is 3.4 Reevaluated today on 10/20/2021, patient remains in the ICU, intubated and mechanically ventilated. She is sedated, she is on propofol at 45 mcg/kg/m. Still requiring norepinephrine at 0.07 mcg/kg/m at one point she was over 0.18 mcg/kg/m. Patient remains on cefepime, Eraxis and Flagyl. Remains on TPN, and she is still receiving lactated Ringer's at 100 mL per hour. Ventilator jenkins the patient is on assist control rate of 16 tidal volume 400 FiO2 40% PEEP of 5 ABG showed a pO2 of 95 pCO2 41 pH of 7.47, FiO2 was cut down to 35%. Chest x- ray is showing mild interstitial edema however the patient has excellent urine output and she is on a maintenance dose of Lasix. And her oxygenation based on that ABG seems to be improving. Her WBC count is improving down to 24.6, hemoglobin 7.6. Electrolytes and renal profile are normal. Progress note dated 10/21/2021. This is a patient was initially admitted back on October 11. She came into the hospital with cellulitis. She came to the intensive care unit on October 15, and was intubated on October 16, respiratory failure severe GI bleeding. She went to the op erating room, on the same day, and had an exploratory laparotomy, repair to Myke also, and pyloroplasty. She remains on mechanical ventilator. She is on the volume assist control, rate 16, tidal volume 400, FiO2 35%, PEEP of 5. Blood gases show pO2 of 95, pCO2 41, and pH is 7.51. Blood gases are consistent with a metabolic alkalosis. She is on norepinephrine at 4 mcg/m, Precedex at 0.1 mcg/kg/h, lactated Ringer's at 100 mL an hour, and TPN at 65 mL an hour. White count 17, hemoglobin 7.3, hematocrit 22.8, platelet count 2 49,000. Sodium 137, potassium 4, chlorides 103, CO2 32, anion gap 2, BUN 23, and creatinine 0.68. Albumin is only 1.5. Microbiologic studies are reviewed. Chest x-ray shows some increased density at the left lung base, and some pulmonary vascular congestion and interstitial lung markings to be more prominent. Progress note dated 10/22/2021. This is a patient who was initially admitted back on October 11. She came into the hospital with cellulitis of the lower extremities. She came to the intensive care unit on October 15, and was intubated on October 16, for respiratory failure, and severe GI bleeding. She went to the operating room on the same day, and had exploratory laparotomy, repair to the duodenal ulcer, and pyloroplasty. Yesterday, the patient was extubated from mechanical ventilator, with reasonable blood gases and reasonable weaning parameters. She remains in the intensive care unit. She is very weak. She's currently on 2 L nasal cannula. She remains on lactated Ringer's at 100 mL an hour, and TPN at 65 mL an hour. The patient's currently on norepinephrine at 2.7 mcg/m. The patient's white count is 15.6, hemoglobin 7.3, hematocrit 22.9, platelet count was normal. Sodium 136, potassium 3.6, chlorides 100, CO2 34, anion gap 2, BUN 19, creatinine 0.66. Albumin is 1.6. Chest x-rays consistent with mild fluid overload/CHF. Progress note dated 10/23/2021. 66-year-old female dated back on October 11. She initially came to the hospital with lower extremity cellulitis. She came to the intensive care unit on October 15, and was intubated on October 16 for respiratory failure and severe GI bleeding. She went to the operating room on the same day had exploratory laparotomy, repair of duodenal ulcer, and pyloroplasty. The patient was extubated on October 21. Currently, she is on 2 L nasal cannula. She's getting lactated Ringer's at 20 mL an hour and TPN at 65 mL an hour norepinephrine has been weaned off. White count 10.9, hemoglobin 7.2, hematocrit 22.8, platelet count 392,000. Sodium 134, potassium 3.7, chlorides 100, CO2 35, BUN 20, creatinine 0.7. Albumin is only 1.6. Brain CT from October 22 shows an evolving large right MCA territory infarct demonstrating interval changes as described. A new tiny acute infarct cannot be excluded by the computed tomography scan. Progress note dated 10/24/2021. 66-year-old female, admitted back on October 11. She initially came to the hospital with lower extremity cellulitis. She came to the intensive care unit on October 15, and was intubated on October 16, for respiratory failure and severe GI bleeding. She went to the operating room on the same day, and had an exploratory laparotomy, repair of duodenal ulcer, and pyloroplasty. She was extubated successfully, on 10/21/2021. Currently, she is on 2 L nasal cannula. She's getting TPN at 67 mL an hour, and saline at 20 mL an hour. She is taking clear liquids by mouth. She remains on Flagyl, Eraxis, and cefepime. Brain CT from October 22 shows an evolving large right MCA territory infarct. White count 7.4, hemoglobin 7, hematocrit 22.5, and platelet count 461,000. Sodium 135, potassium 4.1, chlorides 101, CO2 29, BUN 22, creatinine 0.69. Progress note dated 10/25/2021. 66-year-old female admitted back on October 11. She initially came to the hospital for lower extremity cellulitis. She came to the ICU, on October 15, and was intubated on October 16, for respiratory failure and severe GI bleeding. She went to the operating room on the same day, and had an exploratory laparotomy, repair of duodenal ulcer, and pyloroplasty. She was successfully extubated on October 21. Currently, she is on 2 L. She's getting TPN at 90 mL an hour, and saline at 20 mL an hour. White count 6.7, hemoglobin 8.1, hematocrit 26.7, and platelet count 467,000. Sodium 134, potassium 4.4, chlorides 104, CO2 28, BUN 24, creatinine 0.67. Albumin is only 1.8. No chest x-ray today. The patient is a overflow patient. Progress note dated 10/27/2021. 66-year-old female, who was admitted back on October 11. She initially came to the hospital with lower extremity cellulitis. She came to the intensive care unit on October 15, and was intubated on October 16 for respiratory failure and severe GI bleeding. She went to the operating room on October 16, and had an exploratory laparotomy, a repair of duodenal ulcer, and pyloroplasty. She was successfully extubated on 10/21/2021. Currently labs include a sodium 1:30, potassium 4.7, chlorides 104, CO2 22, anion gap 5, BUN 22, creatinine 0.7. Calcium is 7.7. No new x-rays to report. Objective - Vital Signs Vital signs: Vital Signs Temp 98.6 F 10/27/21 08:00 Pulse 81 10/27/21 08:00 Resp 16 10/27/21 08:00 BP 128/64 10/27/21 08:00 Pulse Ox 95 10/27/21 08:00 Intake & Output 10/26/21 10/27/21 10/27/21 18:59 06:59 18:59 Intake Total 1080 1050 Output Total 2900 2050 900 Balance -1820 -1000 -900 Intake: Intake, IV Titration 1050 Amount Sodium Chloride 2.5MEQ/ml 1050 Vial 50 meq Potassium Chloride 40 meq Calcium Gluconate 1.5 gm Magnesium Sulfate gm 1 gm Potassium Phosphate 15 mmol In Amino Acid 5%- D15w 1,000 ml @ 90 mls/hr IV .BY DURATION [facility] Rx#: [id number] Oral 1080 Output: Drainage 50 Right Upper Abdomen 50 Urine 2900 2000 900 Other: Voiding Method External Catheter External Catheter External Catheter ABP, PAP, CO, CI - Last Documented Arterial Blood Pressure 97/69 - Exam No acute distress, currently on nasal O2. Saturations are 95 %. HEENT examination is grossly unremarkable. Neck supple. Full range of motion. No adenopathy thyromegaly or neck vein distention. Cardiovascular examination reveals an irregular rhythm and rate. S1-S2 normal. No S3 or S4. No discernible murmur noted. Heart rate 81 bpm. Lungs reveal scattered rhonchi. Breath sounds equal. No wheezes. No crackles. Saturations are 95 on 2 L. Abdomen soft without bowel sounds. Extremities are intact. No cyanosis clubbing or edema. Skin is without rash or lesion. Neurologic examination is unchanged. - Labs CBC & Chem 7: 10/25/21 04:20 10/27/21 03:42 Labs: Abnormal Lab Results - Last 24 Hours (Table) 10/26/21 10/27/21 10/27/21 Range/Units 17:52 00:32 03:42 Sodium 130 L (135-145) mmol/L Anion Gap 5.00 L (10.00-18.00) mmol/L BUN/Creatinine Ratio 33.94 H (12.00-20.00) Ratio Glucose 154 H (70-110) mg/dL POC Glucose (mg/dL) 163 H 186 H (75-99) mg/dL Calcium 7.7 L (8.7-10.3) mg/dL 10/27/21 10/27/21 Range/Units 06:12 11:25 Sodium (135-145) mmol/L Anion Gap (10.00-18.00) mmol/L BUN/Creatinine Ratio (12.00-20.00) Ratio Glucose (70-110) mg/dL POC Glucose (mg/dL) 187 H 186 H (75-99) mg/dL Calcium (8.7-10.3) mg/dL Assessment and Plan Assessment: Postoperative respiratory failure, requiring intubation and mechanical ventilation, S/P extubation on 10/21/2021. Postoperative day #10, status post exploratory laparotomy, repair of duodenal ulcer, and pyloroplasty for GI bleed. Massive upper GI bleed, status post surgery. Evolving large right MCA territory infarct. Chronic cellulitis lower extremities. Acute urinary tract infection. Type 2 diabetes mellitus. History of CVA. Toxic/metabolic encephalopathy. Sepsis, with septic shock. Cardiomyopathy with LV dysfunction. Plan: Plan dated 10/21/2021. The patient remains on a small dose of norepinephrine. The patient's also on dexmedetomidine for agitation. Today, we will stop the sedation, and do a daily interruption of sedation, trial. The patient be placed on PSV 5 CPAP of 5. She may or may not be ready for extubation. Weaning parameters will be done. Labs, x-rays, medications are reviewed. She continues on GI and DVT prophylaxis. Labs, x-rays, medications are reviewed. Prognosis is guarded. We will continue to follow and make recommendations where appropriate. Plan dated 10/22/2021. The patient was extubated successfully yesterday, on October 21. The patient is still very weak. She remains on norepinephrine at less than 3 mcg/m. Lactated Ringer's which is running at 100 mL an hour, will be turned down to KVO. The patient does have diffuse edema. I have asked the nurses to go very gentle with her pain medications, and also make sure that she has an incentive spirometer in the room. The patient's overall prognosis remains guarded. Labs x-rays a medications are reviewed. Continue to follow the patient and make recommendations where appropriate. Plan dated 10/23/2021 The patient was seen in evaluated, in room 257. The brain CT from yesterday is reviewed. It does show an evolving right MCA territory infarct. The patient currently is on lactated Ringer's at 20 mL an hour, and TPN at 65 mL an hour. Norepinephrine has been weaned down. She remains on 2 L nasal cannula. Labs, x-rays, and medications are reviewed. Prognosis is certainly guarded. We will continue to follow the patient make recommendations were appropriate. Plan dated 10/24/2021. The patient is again examined, in room 257, ICU. The brain computed tomography scan from October 22 was reviewed. The patient currently remains on some lactated Ringer's, and TPN. Norepinephrine has been weaned off. She remains on 2 L nasal cannula. Additional recommendations and suggestions are forthcoming. Labs, x-rays, medications are all reviewed. The patient's overall prognosis remains guarded. I believe she is well enough to leave the intensive care unit. We will continue to follow the patient and make recommendations where appropriate. Plan dated 10/25/2021. The patient is again seen in room 257. She's doing much better. She remains on TPN at 90 mL an hour. She is on 2 L nasal cannula. Saturations are 98%. Labs, x-rays, and medications are reviewed. The patient could be discharged out to [facility] general medical floor. We encourage her to continue with incentive spirometry. We will continue to follow the patient and make recommendations where appropriate. Prognosis is guarded. Plan dated 10/27/2021. The patient is seen today in room 459. She was previously in the intensive care unit. Labs, x-rays, medications are all reviewed. The patient is currently doing much better. She is on 2 L nasal cannula. Saturations are 95%. The rest of her labs, x-rays, and medications, are all reviewed. The patient remains on cefepime, Flagyl, and Eraxis, as per infectious diseases. Prognosis is guarded. We will continue to follow the patient and make recommendations where appropriate. Time with Patient: Less than 30
[2021-10-27] MEDS: HYDROcodone/APAP 10-325MG 1 EACH TAB PO PRN ×2 (13:32→21:57)
--- NOTE | 2021-10-27 13:49 | P.PN ---
Subjective Progress Note Date: 10/27/21 Pt doing well. Now on the floor. Advance diet as tolerated, ongoing TPN. Consider removal of IJ central line in next 1-2 days Gen: Awake, alert, confused HEENT: normocephalic, atraumatic, moist mucous membranes Resp: Breathing comfortably without accessory muscle use, symmetric air expansion CVS: good distal perfusion x 4, : no SPT, no CVAT, martinez catheter is present MSK: + pitting edema, no clubbing Assessment/Plan: #Acute hypoxic respiratory failure #Acute on Chronic Systolic Heart Failure Exacerbation, EF 40-45% -Pulmonary following, appreciate recs -continue lasix 20mg IV BID -On NC s/p extubation on 10/22, doing well. #Massive upper GI bleeding secondary to bleeding duodenal ulcer #Subacute Stroke -Status post respiratory laparotomy with repair of perforated duodenal ulcer and pyloroplasty by general surgeon on September 16 -Aspirin and Plavix on hold -Timing of ASA or Plavix per surgery -Neurology following #Septic Shock #Toxic Encephalopathy #Bilateral lower extremity cellulitis secondary to nonhealing vascular status ulcers, Necrotic #Acute urinary tract infection on presentation -Status post debridement with deep tissue culture by vascular surgery with wound Cx growing polymicrobial organisms, group A strep, pseudomonas, E coli, MSSA -UCx with E colli -Resume IV cefepime, flagyl, eraxis per ID -Infectious disease following #Type 2 diabetes -SSI aspart q6h #History of subacute CVA -Aspirin and Plavix on hold secondary to above Pt is Full Code DVT PPx on hold due to bleed Objective - Vital Signs Vital signs: Vital Signs Temp 98.6 F 10/27/21 08:00 Pulse 81 10/27/21 08:00 Resp 16 10/27/21 08:00 BP 128/64 10/27/21 08:00 Pulse Ox 95 10/27/21 08:00 Intake & Output 10/26/21 10/27/21 10/27/21 18:59 06:59 18:59 Intake Total 1080 1050 Output Total 2900 2050 900 Balance -1820 -1000 -900 Intake: Intake, IV Titration 1050 Amount Sodium Chloride 2.5MEQ/ml 1050 Vial 50 meq Potassium Chloride 40 meq Calcium Gluconate 1.5 gm Magnesium Sulfate gm 1 gm Potassium Phosphate 15 mmol In Amino Acid 5%- D15w 1,000 ml @ 90 mls/hr IV .[facility] Rx#: [id number] Oral 1080 Output: Drainage 50 Right Upper Abdomen 50 Urine 2900 2000 900 Other: Voiding Method External Catheter External Catheter External Catheter ABP, PAP, CO, CI - Last Documented Arterial Blood Pressure 97/69 - Labs CBC & Chem 7: 10/25/21 04:20 10/27/21 03:42 Labs: Abnormal Lab Results - Last 24 Hours (Table) 10/26/21 10/27/21 10/27/21 Range/Units 17:52 00:32 03:42 Sodium 130 L (135-145) mmol/L Anion Gap 5.00 L (10.00-18.00) mmol/L BUN/Creatinine Ratio 33.94 H (12.00-20.00) Ratio Glucose 154 H (70-110) mg/dL POC Glucose (mg/dL) 163 H 186 H (75-99) mg/dL Calcium 7.7 L (8.7-10.3) mg/dL 10/27/21 10/27/21 Range/Units 06:12 11:25 Sodium (135-145) mmol/L Anion Gap (10.00-18.00) mmol/L BUN/Creatinine Ratio (12.00-20.00) Ratio Glucose (70-110) mg/dL POC Glucose (mg/dL) 187 H 186 H (75-99) mg/dL Calcium (8.7-10.3) mg/dL
[2021-10-27 17:00] LABS: Glucose,Whole Blood 88 mg/dL (75-99)
[2021-10-28] MEDS: CEFEPIME 2 GM in SODIUM CHLORIDE 0.9% 100 ML IVPB SCH ×3 (00:30→17:20)
[2021-10-28] MEDS: metroNIDAZOLE-NS PMX 500 MG in SALINE 1 100ML.BAG IVPB SCH ×4 (00:31→22:53)
[2021-10-28] MEDS: INSULIN ASPART (NovoLOG) 100 UNIT/ML VIAL SQ SCH ×4 (00:41→19:03)
[2021-10-28 00:48] LABS: Glucose,Whole Blood 98 mg/dL (75-99)
[2021-10-28] MEDS: HYDROcodone/APAP 10-325MG 1 EACH TAB PO PRN ×2 (05:27→21:30)
[2021-10-28 05:39] LABS: Glucose,Whole Blood 90 mg/dL (75-99)
[2021-10-28] MEDS: ENOXAPARIN 40 MG/0.4 ML SYRINGE SQ SCH (08:09)
[2021-10-28] MEDS: PANTOPRAZOLE 40 MG/10 ML VIAL IVP SCH ×2 (08:10→22:50)
[2021-10-28] MEDS: GABAPENTIN 100 MG CAP PO SCH ×3 (08:10→21:31)
[2021-10-28] MEDS: ATORVASTATIN 40 MG TAB PO SCH (08:10)
[2021-10-28] MEDS: ANIDULAFUNGIN 100 MG in SODIUM CHLORIDE 0.9% 100 ML IVPB SCH (08:10)
[2021-10-28] MEDS: FUROSEMIDE 10 MG/ML 2 ML VIAL IV SCH (08:10)
[2021-10-28 09:44] LABS: Magnesium 1.8 mg/dL (1.5-2.4); Phosphorus 3.6 mg/dL (2.4-5.1)
[2021-10-28 09:56] LABS: African American GFR (CKD) 87.8 (60.0-200.0); Anion Gap 8.9 mmol/L (10.00-18.00); BUN/Creat Ratio 32.88 Ratio (12.00-20.00); Blood Urea Nitrogen 26.3 mg/dL (9.0-27.0); Calcium 7.7 mg/dL (8.7-10.3); Carbon Dioxide 19.1 mmol/L (20.0-27.5); Non-African American GFR(CKD) 75.8 (60.0-200.0)
--- NOTE | 2021-10-28 11:45 | P.PN ---
Subjective Progress Note Date: 10/28/21 CHIEF COMPLAINT: Duodenal ulcer HISTORY OF PRESENT ILLNESS: Patient is postop day #12 status post Exploratory laparotomy with repair of perforated duodenal ulcer and control of bleeding, pyloroplasty. Patient is lying in bed comfortably. She does report some abdominal pain. She is having bowel movements. No blood reported in her stools. Denies any nausea vomiting. She's currently on a low fiber diet. She remains confused. Afebrile. PHYSICAL EXAM: VITAL SIGNS: Reviewed. GENERAL: Well-developed in no acute distress. HEENT: No sclera icterus. Extraocular movements grossly intact. Moist buccal mucosa. Head is atraumatic, normocephalic. ABDOMEN: Soft. nondistended. Abdominal binder in place. MARIA LUISA drain 30ml serous fluid output ASSESSMENT: 1. Duodenal ulcer with perforation and active bleeding status post Exploratory laparotomy with repair of perforated duodenal ulcer and control of bleeding, pyloroplasty. PLAN: -Okay to resume aspirin and Plavix from surgical standpoint -continue low fiber diet -Continue PPI -Antibiotics per ID service -Continue supportive care -DVT prophylaxis Lovenox Physician Shop Clerk note has been reviewed by physician. Signing provider agrees with the documented findings, assessment, and plan of care. I have personally seen and examined the patient, reviewed the SODA FLAKER /PAs history, exam and MDM and agree with the assessment and plan as written. Based on total visit time, I have performed more than 50% of the visit. As above: Patient is doing better today. Confusion seem somewhat improved. May resume anticoagulation. Continue diet. He MARIA LUISA drain in place for now. Remains serous. Objective - Vital Signs Vital signs: Vital Signs Temp 98.0 F 10/28/21 07:46 Pulse 84 10/28/21 07:46 Resp 21 10/28/21 07:46 BP 131/66 10/28/21 07:46 Pulse Ox 91 L 10/28/21 07:46 Intake & Output 10/27/21 10/28/21 10/28/21 18:59 06:59 18:59 Intake Total 570 Output Total 1550 660 900 Balance -1550 -90 -900 Intake: IV 220 0.9 Sodium Chloride 120 metroNIDAZOLE-NS PMX 500 100 mg In Saline 1 100ml.bag @ 100 mls/hr IVPB Q8HR [facility] Rx#:[id number] Intake, IV Titration 100 Amount Cefepime 2 gm In Sodium 100 Chloride 0.9% 100 ml @ 25 mls/hr IVPB Q8HR [facility] Rx# :[id number] Oral 250 Output: Drainage 60 Right Upper Abdomen 60 Urine 1550 600 900 Other: Voiding Method External Catheter External Catheter External Catheter # Voids 1 # Bowel Movements 1 ABP, PAP, CO, CI - Last Documented Arterial Blood Pressure 97/69 - Labs CBC & Chem 7: 10/25/21 04:20 10/28/21 03:31 Labs: Abnormal Lab Results - Last 24 Hours (Table) 10/28/21 Range/Units 03:31 Sodium 132 L (135-145) mmol/L Carbon Dioxide 19.1 L (20.0-27.5) mmol/L Anion Gap 8.90 L (10.00-18.00) mmol/L BUN/Creatinine Ratio 32.88 H (12.00-20.00) Ratio Calcium 7.7 L (8.7-10.3) mg/dL
[2021-10-28 11:56] LABS: Glucose,Whole Blood 135 mg/dL (75-99)
--- NOTE | 2021-10-28 14:01 | P.PN ---
Subjective Progress Note Date: 10/28/21 Pt doing well. Now on the floor. Advance diet as tolerated. Removed IJ yesterday Gen: Awake, alert, confused HEENT: normocephalic, atraumatic, moist mucous membranes Resp: Breathing comfortably without accessory muscle use, symmetric air expansion CVS: good distal perfusion x 4, : no SPT, no CVAT, martinez catheter is present MSK: + pitting edema, no clubbing Assessment/Plan: #Acute hypoxic respiratory failure #Acute on Chronic Systolic Heart Failure Exacerbation, EF 40-45% -Pulmonary following, appreciate recs -continue lasix 20mg IV BID -On NC s/p extubation on 10/22, doing well. #Massive upper GI bleeding secondary to bleeding duodenal ulcer #Subacute Stroke -Status post respiratory laparotomy with repair of perforated duodenal ulcer and pyloroplasty by general surgeon on September 16 -Aspirin and Plavix on hold -Timing of ASA or Plavix per surgery -Neurology following #Septic Shock #Toxic Encephalopathy #Bilateral lower extremity cellulitis secondary to nonhealing vascular status ulcers, Necrotic #Acute urinary tract infection on presentation -Status post debridement with deep tissue culture by vascular surgery with wound Cx growing polymicrobial organisms, group A strep, pseudomonas, E coli, MSSA -UCx with E colli -Resume IV cefepime, flagyl, eraxis per ID -Infectious disease following #Type 2 diabetes -SSI aspart q6h #History of subacute CVA -Aspirin and Plavix on hold secondary to above Pt is Full Code DVT PPx on hold due to bleed Objective - Vital Signs Vital signs: Vital Signs Temp 98.0 F 10/28/21 07:46 Pulse 84 10/28/21 07:46 Resp 21 10/28/21 07:46 BP 131/66 10/28/21 07:46 Pulse Ox 91 L 10/28/21 07:46 Intake & Output 10/27/21 10/28/21 10/28/21 18:59 06:59 18:59 Intake Total 570 Output Total 8590 660 900 Balance -1550 -90 -900 Weight 90 kg Intake: IV 220 0.9 Sodium Chloride 120 metroNIDAZOLE-NS PMX 500 100 mg In Saline 1 100ml.bag @ 100 mls/hr IVPB Q8HR [facility] Rx#:[id number] Intake, IV Titration 100 Amount Cefepime 2 gm In Sodium 100 Chloride 0.9% 100 ml @ 25 mls/hr IVPB Q8HR [facility] Rx# :[id number] Oral 250 Output: Drainage 60 Right Upper Abdomen 60 Urine 1550 600 900 Other: Voiding Method External Catheter External Catheter External Catheter # Voids 1 # Bowel Movements 1 ABP, PAP, CO, CI - Last Documented Arterial Blood Pressure 97/69 - Labs CBC & Chem 7: 10/25/21 04:20 10/28/21 03:31 Labs: Abnormal Lab Results - Last 24 Hours (Table) 10/28/21 10/28/21 Range/Units 03:31 11:51 Sodium 132 L (135-145) mmol/L Carbon Dioxide 19.1 L (20.0-27.5) mmol/L Anion Gap 8.90 L (10.00-18.00) mmol/L BUN/Creatinine Ratio 32.88 H (12.00-20.00) Ratio POC Glucose (mg/dL) 135 H (75-99) mg/dL Calcium 7.7 L (8.7-10.3) mg/dL
--- NOTE | 2021-10-28 15:54 | P.PN ---
Subjective Progress Note Date: 10/28/21 10/28/2021: Patient's son was present today. Patient is now in bed 459. She is extubated. Patient denies headache. Patient is sitting comfortably in her recliner. She has been having some hallucinations, although patient states that she "always see things since age 1". She believes that she is partly [place] and believes in [place] cultural spirits. Patient appears somewhat hyperverbal. She speaks almost constantly. She offers no complaints. 10/18/2021: Patient's son was present today. Patient is laying comfortably in the bed, intubated, sedated with propofol 30 g per program per minute. Also on a very low dose Levophed of 0.8 mg/kg. Per nursing report, when sedation holiday was performed for 45 minutes, she did open eyes, moved extremities, but did not follow commands. Patient's hemoglobin did drop down therefore required one PRBC. Patient has been started on Lasix. 10/17/2021: Patient was seen for a follow-up. Patient's son was present. Apparently patient developed an acute GI bleed yesterday. She was transferred to ICU. Patient underwent emergency EGD, which revealed large amount of fresh blood with clots noted in the stomach extending into the pylorus and the duod enum. 2 cm ulceration in the duodenal bulb with a small visible vessel, status post Endo clip placement. Large adherent clot noted in the pylorus extending into the duodenal bulb which could not be removed. Significant amount of bleeding noted in this area and most likely dealing with a large duodenal ulcer. Subsequently patient underwent exploratory laparotomy by Dr. Jones with repair of perforated duodenal ulcer and control of bleeding, pyloroplasty. Therefore patient could not be seen yesterday. Today patient is on propofol 30 mcg/kg/m. She also has received Dilaudid 2 mg IV. Per nursing report, she does respond to pain equally in the upper and lower limbs. Patient is in a lot of pain for which she was given Dilaudid. She did not follow commands however. At present exam was limited because of patient being sedated. 10/15/2021: Patient is a 66-year-old female admitted to the hospital for leg wounds. She has bilateral leg wounds, that have been weeping. Lately she has been falling and bumped her head. Patient underwent debridement of the wounds yesterday. Patient's was also present, who states that patient lives with her . She does not have any deficits otherwise. She walks by herself, does not use any assistive device. She has been complaining of a lot of pain in her legs. Because of her falls, she underwent a routine computed tomography scan of the head, which incidentally revealed subacute right parietal infarct. Patient also has toxic metabolic encephalopathy from UTI and perhaps pain medication. Patient was not taking any antiplatelet medication at home. CT head revealed right middle cerebral artery distribution subacute infarct, involving the right parietal temporal region. Patchy white matter hypodensity consistent with chronic small vessel ischemia. I personally reviewed computed tomography scan of the head and agree with the findings. Patient has smoked half pack per day for 40-50 years. This lately she has stopped. She has been diagnosed with diabetes while in this hospital, as her hemoglobin A1c is 8. No previous history of diabetes. Objective - Vital Signs Vital signs: Vital Signs Temp 97.3 F L 10/28/21 14:00 Pulse 96 10/28/21 14:00 Resp 21 10/28/21 14:00 BP 86/61 10/28/21 14:00 Pulse Ox 95 10/28/21 14:00 Intake & Output 10/27/21 10/28/21 10/28/21 18:59 06:59 18:59 Intake Total 570 Output Total 1550 660 900 Balance -1550 -90 -900 Weight 90 kg Intake: IV 220 0.9 Sodium Chloride 120 metroNIDAZOLE-NS PMX 500 100 mg In Saline 1 100ml.bag @ 100 mls/hr IVPB Q8HR [facility] Rx#:[id number] Intake, IV Titration 100 Amount Cefepime 2 gm In Sodium 100 Chloride 0.9% 100 ml @ 25 mls/hr IVPB Q8HR [facility] Rx# :[id number] Oral 250 Output: Drainage 60 Right Upper Abdomen 60 Urine 1550 600 900 Other: Voiding Method External Catheter External Catheter External Catheter # Voids 1 # Bowel Movements 1 ABP, PAP, CO, CI - Last Documented Arterial Blood Pressure 97/69 - Exam Patient alert and awake. She states it is April and the year is . She kn ows her birthday of 1955. She knows that she is in [place] in [place]. Speech and language functions are normal. Cranial nerves only significant for left homonymous hemianopia. Muscle strength is normal. Sensory equal with no neglect. - Labs CBC & Chem 7: 10/25/21 04:20 10/28/21 03:31 Labs: Abnormal Lab Results - Last 24 Hours (Table) 10/28/21 10/28/21 Range/Units 03:31 11:51 Sodium 132 L (135-145) mmol/L Carbon Dioxide 19.1 L (20.0-27.5) mmol/L Anion Gap 8.90 L (10.00-18.00) mmol/L BUN/Creatinine Ratio 32.88 H (12.00-20.00) Ratio POC Glucose (mg/dL) 135 H (75-99) mg/dL Calcium 7.7 L (8.7-10.3) mg/dL Assessment and Plan Assessment: 1. Large, subacute, right cerebral hemispheric infarct, involving the right parietal temporal region-patient does have some left-sided visual field deficits. Left hemisensory neglect has resolved. 2. Toxic encephalopathy/delirium secondary to infection 3. Acute UTI. Urine cultures growing E. coli. 4. New onset diabetes 5. Tobacco use 6. Weeping ulcers of the lower extremities, status post debridement 7. Status post exploratory laparotomy with repair of perforated duodenal ulcer, control of bleeding and pyloroplasty 10/16/2021. Plan: 1. Surgery has cleared the patient to be started on dual antiplatelet medication. We will resume aspirin 81 mg and Plavix 75 mg. Patient on Protonix 40 mg IV twice a day. Continue Lipitor 40 mg daily. 2. Neurologically patient has remarkably improved. She has only residual left homonymous hemianopia. Rest of the examination appears nonfocal. 3. Patient still appears slightly delirious probably from hospitalization, recent significant illnesses, and other medical conditions. 4. 2-D echocardiogram revealed inferoseptal hypokinesis or aortic sclerosis with mild aortic stenosis and mild mitral and mild to moderate tricuspid regurgitation. EF is 40-45%. Grade 1 diastolic dysfunction. Mid to basal inferoseptal is hypokinetic. 5. Carotid Doppler revealed no significant common or internal carotid artery stenosis. Antegrade flow in the left vertebral artery. Unable to identify flow on the right side 6. PT, OT and speech therapy evaluations. Lipid panel cholesterol 159, LDL 101, HDL 28.3 and triglycerides 146, continue Lipitor 40 mg daily. Patient's hemoglobin A1c 8.0. Recommend optimize control of diabetes to target A1c <7.0. TSH slightly low 0.222 with normal free T4 1 0.63. IM to address thyroid functions. 7. UA shows large amount of leukocyte Estrace. Urine growing E. coli. Patient currently on cefepime and Eraxis. ID following. 8. Discussed with patient's son and primary physician in detail. We will follow periodically.
--- NOTE | 2021-10-28 16:17 | P.PN ---
Subjective Progress Note Date: 10/28/21 Principal diagnosis: Shortness of breath On 10/28/2021 patient seen in follow-up on medical surgical floor. Today is postoperative day #12 status post exploratory laparotomy with repair of perforated duodenal ulcer and pyloroplasty for duodenal ulcer with perforation and active bleeding. Patient is awake and alert, in no acute distress, she had been stable on the floor. Breathing comfortably, mentation is appropriate, she is currently on today's of oxygen, her pulse ox is 95%, afebrile, hemodynamically she is stable, no signs of any active bleeding. Today's labs have been reviewed, no CBC, BMP showed sodium of 132, potassium is 5.0, CO2 of 19, B1 is 26, creatinine 0.8. Her last CBC from 10/25/2021 showed hemoglobin of 8.1. Patient has been resumed on her Plavix, she continues on Lovenox 40 mg daily, she is on aspirin 81 mg, Lipitor 40 mg, and she continues on Flagyl, cefepime and Eraxis. ID service is following. The patient continues on IV Lasix 21 g every 12 hours. She has been maintaining negative fluid balance, and she is in -1.6 L net fluid balance over the last 24 hours. She is tolerating oral intake, no nausea vomiting, no abdominal pain. TPN has been discontinued. Objective - Vital Signs Vital signs: Vital Signs Temp 97.3 F L 10/28/21 14:00 Pulse 96 10/28/21 14:00 Resp 21 10/28/21 14:00 BP 86/61 10/28/21 14:00 Pulse Ox 95 10/28/21 14:00 Intake & Output 10/27/21 10/28/21 10/28/21 18:59 06:59 18:59 Intake Total 570 Output Total 1550 660 900 Balance -1550 -90 -900 Weight 90 kg Intake: IV 220 0.9 Sodium Chloride 120 metroNIDAZOLE-NS PMX 500 100 mg In Saline 1 100ml.bag @ 100 mls/hr IVPB Q8HR [facility] Rx#:[id number] Intake, IV Titration 100 Amount Cefepime 2 gm In Sodium 100 Chloride 0.9% 100 ml @ 25 mls/hr IVPB Q8HR [facility] Rx# :[id number] Oral 250 Output: Drainage 60 Right Upper Abdomen 60 Urine 1550 600 900 Other: Voiding Method External Catheter External Catheter External Catheter # Voids 1 # Bowel Movements 1 ABP, PAP, CO, CI - Last Documented Arterial Blood Pressure 97/69 - Exam GENERAL EXAM: Alert, very pleasant, 58-year-old white female, on 2 L of oxygen with a pulse ox of 95%, comfortable in no apparent distress. HEAD: Normocephalic/atraumatic. EYES: Normal reaction of pupils, equal size. Conjunctiva pink, sclera white. NOSE: Clear with pink turbinates. THROAT: No erythema or exudates. NECK: No masses, no JVD, no thyroid enlargement, no adenopathy. CHEST: No chest wall deformity. Symmetrical expansion. LUNGS: Equal air entry with no crackles, wheeze, rhonchi or dullness. CVS: Regular rate and rhythm, normal S1 and S2, no gallops, no murmurs, no rubs ABDOMEN: Soft, nontender. No hepatosplenomegaly, normal bowel sounds, no guarding or rigidity. EXTREMITIES: No clubbing, no edema, no cyanosis, 2+ pulses and upper and lower extremities. MUSCULOSKELETAL: Muscle strength and tone normal. SPINE: No scoliosis or deformity SKIN: No rashes CENTRAL NERVOUS SYSTEM: Alert and oriented -3. No focal deficits, tone is normal in all 4 extremities. PSYCHIATRIC: Alert and oriented -3. Appropriate affect. Intact judgment and insight. - Labs CBC & Chem 7: 10/25/21 04:20 10/28/21 03:31 Labs: Abnormal Lab Results - Last 24 Hours (Table) 10/28/21 10/28/21 Range/Units 03:31 11:51 Sodium 132 L (135-145) mmol/L Carbon Dioxide 19.1 L (20.0-27.5) mmol/L Anion Gap 8.90 L (10.00-18.00) mmol/L BUN/Creatinine Ratio 32.88 H (12.00-20.00) Ratio POC Glucose (mg/dL) 135 H (75-99) mg/dL Calcium 7.7 L (8.7-10.3) mg/dL Assessment and Plan Plan: Assessment: #1. Acute hypoxic respiratory failure related to massive upper GI bleeding, and postoperative respiratory failure requiring intubation and mechanical ventilation on 10/16/2021, with subsequent successful wean and extubation on 10/21/2021 #2. Acute GI blood loss anemia requiring transfusion with multiple blood products including 5 units of packed red blood cells, 2 units of FFP, 1 unit of platelets related to perforated duodenal ulcer #3. Status post exploratory laparotomy with repair of perforated duodenal ulcer and control of bleeding, pyloroplasty on 10/16/2021 #4. Large subacute, right cerebral hemispheric infarct involving the right parietal temporal region, nephrology is following #5. Altered mental status related to toxic encephalopathy and delirium secondary to infection #6. Acute urinary tract infection with urine cultures growing E. coli #7. New onset diabetes mellitus type 2 #8. History of smoking #9. Lower extremity cellulitis, with wound cultures positive for E. coli, pseudomonas aeruginosa, Staphylococcus aureus, and strep pyogenes group A #10. History of CVA #11. Cardiomyopathy with LV dysfunction Plan: Patient is breathing comfortably, We'll switch IV Lasix to oral Lasix 20 mg daily Follow-up chest x-ray tomorrow, follow up lab work including CBC and BMP Clinical patient is improving, Antibiotics per ID service recommendations Provided sounds prominent, encourage deep breathing and coughing Physical therapy recommendations Patient is likely to require subacute rehab after discharge in view of severity of her critical illness, generalized weakness We'll defer to primary care service and mental health social worker physical therapy for recommendations I have personally seen and examined the patient, performed the documentation and the assessment and plan as written. Number of minutes spent on the visit: [10] Time with Patient: Less than 30
[2021-10-28] MEDS: ASPIRIN 81 MG PO SCH (16:49)
[2021-10-28] MEDS: CLOPIDOGREL 75 MG TAB PO SCH (16:49)
[2021-10-28 17:54] LABS: Glucose,Whole Blood 138 mg/dL (75-99)
--- NOTE | 2021-10-28 21:22 | P.PN ---
Subjective Progress Note Date: 10/28/21 Principal diagnosis: Bilateral lower extremity venous stasis ulcer and cellulitis Patient is a 66-year-old female who has not seen a physician in 20 years presented to the hospital with significant bilateral lower extremity necrotic wound and secondary cellulitis in this patient who is status post surgical debridement of these wounds in the OR on 10/13/2021. Patient did have a GI bleed could not be controlled through the EGD patient subsequently taken to the OR and status post laparotomy for a bleeding and perforated duodenal ulcer disease on 10/16/2021 On today's evaluation that is 10/28/2021, the patient is afebrile, the patient is breathing comfortably on nasal cannula Oxygen, patient denies chest pain shortness of breath or cough, no abdominal pain no diarrhea Objective - Vital Signs Vital signs: Vital Signs Temp 99.2 F 10/28/21 18:45 Pulse 95 10/28/21 18:45 Resp 21 10/28/21 18:45 BP 83/57 10/28/21 18:45 Pulse Ox 97 10/28/21 18:45 Intake & Output 10/28/21 10/28/21 10/29/21 06:59 18:59 06:59 Intake Total 570 1080 Output Total 660 900 Balance -90 180 Weight 90 kg Intake: IV 220 0.9 Sodium Chloride 120 metroNIDAZOLE-NS PMX 500 100 mg In Saline 1 100ml.bag @ 100 mls/hr [facility] Rx#:[id number] Intake, IV Titration 100 Amount Cefepime 2 gm In Sodium 100 Chloride 0.9% 100 ml @ 25 mls/hr IVPB Q[facility] Rx# :[id number] Oral 250 1080 Output: Drainage 60 Right Upper Abdomen 60 Urine 600 900 Other: Voiding Method External Catheter External Catheter ABP, PAP, CO, CI - Last Documented Arterial Blood Pressure 97/69 - Exam GENERAL DESCRIPTION: An elderly female lying in bed in no distress RESPIRATORY SYSTEM: Unlabored breathing , decreased breath sounds at bases HEART: S1 S2 regular rate and rhythm , ABDOMEN: Soft , no tenderness EXTREMITIES: Bilateral lower extremity wounds are currently dressed no drainage on the dressing - Labs CBC & Chem 7: 10/25/21 04:20 10/28/21 03:31 Labs: Abnormal Lab Results - Last 24 Hours (Table) 10/28/21 10/28/21 10/28/21 Range/Units 03:31 11:51 17:52 Sodium 132 L (135-145) mmol/L Carbon Dioxide 19.1 L (20.0-27.5) mmol/L Anion Gap 8.90 L (10.00-18.00) mmol/L BUN/Creatinine Ratio 32.88 H (12.00-20.00) Ratio POC Glucose (mg/dL) 135 H 138 H (75-99) mg/dL Calcium 7.7 L (8.7-10.3) mg/dL Assessment and Plan (1) Cellulitis Current Visit: Yes Status: Acute Code(s): L03.90 - CELLULITIS, UNSPECIFIED SNOMED Code(s): 305262456 Plan: 1patient with bilateral lower extremity nonhealing wound and cellulitis seems to be more of a venous stasis ulcers with secondary cellulitis and likely from gram-positive skin pb less likely gram-negative infection in this patient has not seen a physician for 20 years less likelihood of a MRSA infection. 2 patient is status post surgical debridement and deep culture which are currently growing multiple pathogens including Pseudomonas strep 3patient did have acute GI bleed with evidence of perforated and bleeding duod enal ulcer requiring laparotomy, patient is slowly clinically improving and the patient white count has normalized and patient will continue with cefepime flagyl and Eraxis and local wound care to the leg as ordered and continue supportive care Time with Patient: Less than 30
[2021-10-29] MEDS: CEFEPIME 2 GM in SODIUM CHLORIDE 0.9% 100 ML IVPB SCH ×3 (01:35→20:40)
[2021-10-29 01:43] LABS: Glucose,Whole Blood 94 mg/dL (75-99)
[2021-10-29] MEDS: INSULIN ASPART (NovoLOG) 100 UNIT/ML VIAL SQ SCH ×5 (01:43→23:37)
[2021-10-29 05:33] LABS: Glucose,Whole Blood 94 mg/dL (75-99)
--- NOTE | 2021-10-29 08:31 | XR ---
EXAMINATION TYPE: XR chest 1V portable DATE OF EXAM: 10/29/2021 COMPARISON: 10/23/2021 INDICATION: Short of breath TECHNIQUE: Single frontal view of the chest is obtained. FINDINGS: The heart size is mildly prominent. The pulmonary vasculature is normal. The lungs are clear. Left central venous catheter is. IMPRESSION: 1. No acute pulmonary process.
[2021-10-29] MEDS: metroNIDAZOLE-NS PMX 500 MG in SALINE 1 100ML.BAG IVPB SCH ×2 (08:48→16:44)
[2021-10-29] MEDS: ASPIRIN 81 MG PO SCH (08:49)
[2021-10-29] MEDS: GABAPENTIN 100 MG CAP PO SCH ×2 (08:49→22:08)
[2021-10-29] MEDS: ENOXAPARIN 40 MG/0.4 ML SYRINGE SQ SCH (08:49)
[2021-10-29] MEDS: CLOPIDOGREL 75 MG TAB PO SCH (08:49)
[2021-10-29] MEDS: ATORVASTATIN 40 MG TAB PO SCH (08:49)
[2021-10-29] MEDS: FUROSEMIDE 20 MG TAB PO SCH (08:49)
[2021-10-29 09:11] LABS: Basophils # (A) 0.09 X 10*3/uL (0.00-0.10); Basophils % (A) 1.1 %; Eosinophils # (A) 0.11 X 10*3/uL (0.04-0.35); Eosinophils % (A) 1.4 %; HCT 24.8 % (37.2-46.3); HGB 7.5 g/dL (12.0-15.0); Immature Grans, Automated 2.1 %; Lymphocytes % (A) 16.4 %; MCHC 30.2 g/dL (32.0-37.0); MCV 95.8 fL (80.0-97.0); Mean Platelet Volume 9.3 fL (9.5-12.2); Monocytes # (A) 1.48 X 10*3/uL (0.20-1.00); Monocytes % (A) 18.6 %; NRBC Per 100 WBC 0 /100 WBCS (0.0-0.0); Neutrophils # (A) 4.79 X 10*3/uL (1.80-7.70); Neutrophils % (A) 60.4 %; Platelet Count 592 X 10*3/uL (140-440); RBC 2.59 X 10*6/uL (4.10-5.20); RDW 17.4 % (11.5-14.5); WBC 7.94 X 10*3/uL (4.50-10.00)
[2021-10-29 09:32] LABS: African American GFR (CKD) 78.5 (60.0-200.0); Anion Gap 9.7 mmol/L (10.00-18.00); BUN/Creat Ratio 28.93 Ratio (12.00-20.00); Blood Urea Nitrogen 25.4 mg/dL (9.0-27.0); Calcium 7.7 mg/dL (8.7-10.3); Carbon Dioxide 20.4 mmol/L (20.0-27.5); Non-African American GFR(CKD) 67.7 (60.0-200.0); Phosphorus 3.5 mg/dL (2.4-5.1); Potassium 4.5 mmol/L (3.5-5.5)
[2021-10-29] MEDS: PANTOPRAZOLE 40 MG/10 ML VIAL IVP SCH ×2 (10:03→21:26)
[2021-10-29] MEDS: ANIDULAFUNGIN 100 MG in SODIUM CHLORIDE 0.9% 100 ML IVPB SCH (10:04)
[2021-10-29 11:15] LABS: Glucose,Whole Blood 111 mg/dL (75-99)
--- NOTE | 2021-10-29 13:08 | P.PN ---
Subjective Progress Note Date: 10/29/21 CHIEF COMPLAINT: Duodenal ulcer HISTORY OF PRESENT ILLNESS: Patient is status post Exploratory laparotomy with repair of perforated duodenal ulcer and control of bleeding, pyloroplasty on 10/16/21. Patient is lying in bed comfortably. Her pain is controlled. Her last bowel movement was on 10/27/2021 and was reported as loose. She denies any nausea or vomiting. MARIA LUISA drain was 60 mL serous output yesterday. Afebrile. WBC is 7.9 for hemoglobin is down from 8.1-7.5 platelets 592. Patient's aspirin and Plavix have been resumed. PHYSICAL EXAM: VITAL SIGNS: Reviewed. GENERAL: Well-developed in no acute distress. HEENT: No sclera icterus. Extraocular movements grossly intact. Moist buccal mucosa. Head is atraumatic, normocephalic. ABDOMEN: Soft. nondistended. Abdominal binder in place. MARIA LUISA drain 30ml serous fluid output ASSESSMENT: 1. Duodenal ulcer with perforation and active bleeding status post Exploratory laparotomy with repair of perforated duodenal ulcer and control of bleeding, pyloroplasty. PLAN: -continue dysphagia chopped diet -Continue PPI -Antibiotics per ID service -Continue supportive care -DVT prophylaxis Lovenox Physician Gas Cutting Machine Operator note has been reviewed by physician. Signing provider agrees with the documented findings, assessment, and plan of care. I have personally seen and examined the patient, reviewed the SPEECH/LANGUAGE THERAPIST /PAs history, exam and MDM and agree with the assessment and plan as written. Based on total visit time, I have performed more than 50% of the visit. As above: Patient doing well today. She is up in the chair. She feels more energetic. Tolerating diet. No nausea or vomiting. MARIA LUISA serous. Objective - Vital Signs Vital signs: Vital Signs Temp 98.5 F 10/29/21 08:00 Pulse 82 10/29/21 08:00 Resp 18 10/29/21 08:00 BP 109/63 10/29/21 08:00 Pulse Ox 96 10/29/21 08:00 Intake & Output 10/28/21 10/29/21 10/29/21 18:59 06:59 18:59 Intake Total 1080 Output Total 900 880 Balance 180 -880 Weight 90 kg Intake: Oral 1080 Output: Drainage 30 Right Upper Abdomen 30 Urine 900 850 Other: Voiding Method External Catheter # Voids 2 ABP, PAP, CO, CI - Last Documented Arterial Blood Pressure 97/69 - Labs CBC & Chem 7: 10/29/21 03:57 10/29/21 03:57 Labs: Abnormal Lab Results - Last 24 Hours (Table) 10/28/21 10/28/21 10/29/21 Range/Units 03:31 17:52 03:57 RBC (4.10-5.20) X 10*6/uL Hgb (12.0-15.0) g/dL Hct (37.2-46.3) % MCHC (32.0-37.0) g/dL RDW (11.5-14.5) % Plt Count (140-440) X 10*3/uL MPV (9.5-12.2) fL Immature Gran # (0.00-0.04) X 10*3/uL Monocytes # (0.20-1.00) X 10*3/uL Anion Gap 9.70 L (10.00-18.00) mmol/L BUN/Creatinine Ratio 28.93 H (12.00-20.00) Ratio POC Glucose (mg/dL) 138 H (75-99) mg/dL Calcium 7.7 L (8.7-10.3) mg/dL Folate 4.30 L (4.40-31.00) ng/mL 10/29/21 10/29/21 Range/Units 03:57 11:14 RBC 2.59 L (4.10-5.20) X 10*6/uL Hgb 7.5 L (12.0-15.0) g/dL Hct 24.8 L (37.2-46.3) % MCHC 30.2 L (32.0-37.0) g/dL RDW 17.4 H (11.5-14.5) % Plt Count 592 H (140-440) X 10*3/uL MPV 9.3 L (9.5-12.2) fL Immature Gran # 0.17 H (0.00-0.04) X 10*3/uL Monocytes # 1.48 H (0.20-1.00) X 10*3/uL Anion Gap (10.00-18.00) mmol/L BUN/Creatinine Ratio (12.00-20.00) Ratio POC Glucose (mg/dL) 111 H (75-99) mg/dL Calcium (8.7-10.3) mg/dL Folate (4.40-31.00) ng/mL
[2021-10-29] MEDS: HYDROcodone/APAP 10-325MG 1 EACH TAB PO PRN (13:32)
--- NOTE | 2021-10-29 14:19 | PN ---
PROGRESS NOTE This is a 66-year-old female. She came to the hospital with bilateral necrotic wound both lower extremities. The patient went for extensive debridement. We have been treating with local wound care. Patient is on IV antibiotics under Infectious Disease. We have been changing the dressing every 48 hours with Aquacel silver. Wound is granulating. We will continue that. MMODL / IJN: [id number] /
--- NOTE | 2021-10-29 15:13 | P.PN ---
Subjective Progress Note Date: 10/29/21 Principal diagnosis: perforated duodenal ulcer patient this morning is slightly confused. She is AAO 3 and answers questions appropriately however she told me to look at her legs and then she states that she is very pleased to Senior skin forming. Objective - Vital Signs Vital signs: Vital Signs Temp 98.5 F 10/29/21 08:00 Pulse 82 10/29/21 08:00 Resp 18 10/29/21 08:00 BP 109/63 10/29/21 08:00 Pulse Ox 96 10/29/21 08:00 Intake & Output 10/28/21 10/29/21 10/29/21 18:59 06:59 18:59 Intake Total 1080 Output Total 900 880 Balance 180 -880 Weight 90 kg Intake: Oral 1080 Output: Drainage 30 Right Upper Abdomen 30 Urine 900 850 Other: Voiding Method External Catheter # Voids 2 ABP, PAP, CO, CI - Last Documented Arterial Blood Pressure 97/69 - Exam General examination - Alert and Oriented 3 in NAD Heart - + S1S2 no murmurs Lungs - Clear to auscultation Abdomen soft NT ND +ve BS Extremities - No edema DOOR 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 - Moving all 4 extremities spontaneously Psych - mildly confused - Labs CBC & Chem 7: 10/29/21 03:57 10/29/21 03:57 Labs: Abnormal Lab Results - Last 24 Hours (Table) 10/28/21 10/28/21 10/29/21 Range/Units 03:31 17:52 03:57 RBC (4.10-5.20) X 10*6/uL Hgb (12.0-15.0) g/dL Hct (37.2-46.3) % MCHC (32.0-37.0) g/dL RDW (11.5-14.5) % Plt Count (140-440) X 10*3/uL MPV (9.5-12.2) fL Immature Gran # (0.00-0.04) X 10*3/uL Monocytes # (0.20-1.00) X 10*3/uL Anion Gap 9.70 L (10.00-18.00) mmol/L BUN/Creatinine Ratio 28.93 H (12.00-20.00) Ratio POC Glucose (mg/dL) 138 H (75-99) mg/dL Calcium 7.7 L (8.7-10.3) mg/dL Folate 4.30 L (4.40-31.00) ng/mL 10/29/21 10/29/21 Range/Units 03:57 11:14 RBC 2.59 L (4.10-5.20) X 10*6/uL Hgb 7.5 L (12.0-15.0) g/dL Hct 24.8 L (37.2-46.3) % MCHC 30.2 L (32.0-37.0) g/dL RDW 17.4 H (11.5-14.5) % Plt Count 592 H (140-440) X 10*3/uL MPV 9.3 L (9.5-12.2) fL Immature Gran # 0.17 H (0.00-0.04) X 10*3/uL Monocytes # 1.48 H (0.20-1.00) X 10*3/uL Anion Gap (10.00-18.00) mmol/L BUN/Creatinine Ratio (12.00-20.00) Ratio POC Glucose (mg/dL) 111 H (75-99) mg/dL Calcium (8.7-10.3) mg/dL Folate (4.40-31.00) ng/mL Assessment and Plan Assessment: Acute GI blood loss anemia Perforated duodenal ulcer status post laparotomy -Diet as per general surgery -Patient tolerated her liquid diet well. -She is now on mechanical chopped diet -ID manage antibiotics. Patient currently on cefepime and Flagyl and Eraxis -Resume Protonix twice a day -Patient restarted on dual antiplatelet therapy. Monitor hemoglobin closely. Patient did have a slight drop in hemoglobin from a 0.1-7.5 Acute hypoxic respiratory failure Acute on chronic systolic heart failure with EF of 40-45% -Patient transition to oral Lasix -She appears euvolemic -Status post extubation on 10/22/2021 -Patient currently nasal cannula and is satting well Large subacute right cerebral hemispheric infarct -Surgery has cleared the patient for dual antiplatelet medication -Patient started on aspirin and Plavix -Continue Lipitor - 2-D echocardiogram revealed inferoseptal hypokinesis or aortic sclerosis with mild aortic stenosis and mild mitral and mild to moderate tricuspid regurgitation. EF is 40-45%. Grade 1 diastolic dysfunction. Mid to basal inferoseptal is hypokinetic. -Carotid Doppler revealed no significant common or internal carotid artery stenosis. Bilateral lower extremity nonhealing wound and cellulitis likely due to venous s tasis ulcer -Status post surgical debridement -Deep cultures grew multiple pathogens including Pseudomonas -Antibiotics as above -Continue with local wound care Acute UTI -Resume antibiotics as above Encephalopathy likely toxic metabolic and ischemic -Patient is AAO 3 and is following commands -At time patient can speak incoherently. -Anticipated patient went to status will improve gradually over time -Discontinue all sedating medications New-onset diabetes mellitus type 2 -Hemoglobin A1c is 8.0 -Sliding-scale insulin -We'll discharge the patient on metformin History of smoking History of CVA Cardiomyopathy with LV dysfunction: Patient euvolemic. On Lasix Pt is Full Code DVT PPx on hold due to bleed Awaiting for ID to give final recommendations on antibiotics. Also waiting for general surgery to clear patient for discharge. SW has arranged for patient to go to [facility] facility
[2021-10-29 16:54] LABS: Glucose,Whole Blood 185 mg/dL (75-99)
[2021-10-29] MEDS ORDERED: ACETAMINOPHEN TAB 325 MG TAB PO PRN (18:02)
[2021-10-29 20:27] LABS: Glucose,Whole Blood 130 mg/dL (75-99)
[2021-10-29 23:37] LABS: Glucose,Whole Blood 119 mg/dL (75-99)
[2021-10-30] MEDS: HYDROcodone/APAP 5-325MG 1 EACH TAB PO PRN ×4 (03:02→22:02)
[2021-10-30] MEDS: INSULIN ASPART (NovoLOG) 100 UNIT/ML VIAL SQ SCH ×3 (05:53→17:23)
[2021-10-30 05:54] LABS: Glucose,Whole Blood 110 mg/dL (75-99)
[2021-10-30 06:47] LABS: Glucose,Whole Blood 107 mg/dL (75-99)
[2021-10-30] MEDS: GABAPENTIN 100 MG CAP PO SCH ×3 (08:52→20:33)
[2021-10-30] MEDS: PANTOPRAZOLE 40 MG/10 ML VIAL IVP SCH (08:52)
[2021-10-30] MEDS: ASPIRIN 81 MG PO SCH (08:52)
[2021-10-30] MEDS: ENOXAPARIN 40 MG/0.4 ML SYRINGE SQ SCH (08:52)
[2021-10-30] MEDS: CLOPIDOGREL 75 MG TAB PO SCH (08:53)
[2021-10-30] MEDS: FUROSEMIDE 20 MG TAB PO SCH (08:53)
[2021-10-30] MEDS: ATORVASTATIN 40 MG TAB PO SCH (08:53)
[2021-10-30] MEDS: CEFEPIME 2 GM in SODIUM CHLORIDE 0.9% 100 ML IVPB SCH ×2 (08:54→20:33)
[2021-10-30] MEDS: ANIDULAFUNGIN 100 MG in SODIUM CHLORIDE 0.9% 100 ML IVPB SCH (08:54)
[2021-10-30 09:04] LABS: Basophils # (A) 0.06 X 10*3/uL (0.00-0.10); Basophils % (A) 0.6 %; Eosinophils # (A) 0.05 X 10*3/uL (0.04-0.35); Eosinophils % (A) 0.5 %; HCT 22.6 % (37.2-46.3); Lymphocytes # (A) 1.12 X 10*3/uL (0.90-5.00); Lymphocytes % (A) 10.4 %; MCH 29.4 pg (27.0-32.0); Mean Platelet Volume 9.3 fL (9.5-12.2); Monocytes % (A) 13.9 %; NRBC Per 100 WBC 0 /100 WBCS (0.0-0.0); Neutrophils # (A) 7.98 X 10*3/uL (1.80-7.70); Neutrophils % (A) 73.6 %; Platelet Count 596 X 10*3/uL (140-440); RBC 2.38 X 10*6/uL (4.10-5.20); RDW 17.3 % (11.5-14.5); WBC 10.82 X 10*3/uL (4.50-10.00)
--- NOTE | 2021-10-30 09:21 | P.PN ---
Subjective Progress Note Date: 10/29/21 10/29/2021: Patient's was present today. Patient continues to be hyperverbal, almost manicy. Per patient's , she got up, took shower and feels better. Denies any headache. No new concerns. 10/28/2021: Patient's was present today. Patient is now in bed 459. She is extubated. Patient denies headache. Patient is sitting comfortably in her recliner. She has been having some hallucinations, although patient states that she "always see things since age 1". She believes that she is partly [place] and believes in [place] cultural spirits. Patient appears somewhat hyperverbal. She speaks almost constantly. She offers no complaints. 10/18/2021: Patient's was present today. Patient is laying comfortably in the bed, intubated, sedated with propofol 30 g per program per minute. Also on a very low dose Levophed of 0.8 mg/kg. Per nursing report, when sedation h oliday was performed for 45 minutes, she did open eyes, moved extremities, but did not follow commands. Patient's hemoglobin did drop down therefore required one PRBC. Patient has been started on Lasix. 10/17/2021: Patient was seen for a follow-up. Patient's was present. Apparently patient developed an acute GI bleed yesterday. She was transferred to ICU. Patient underwent emergency EGD, which revealed large amount of fresh blood with clots noted in the stomach extending into the pylorus and the duodenum. 2 cm ulceration in the duodenal bulb with a small visible vessel, status post Endo clip placement. Large adherent clot noted in the pylorus extending into the duodenal bulb which could not be removed. Significant amount of bleeding noted in this area and most likely dealing with a large duodenal ulcer. Subsequently patient underwent exploratory laparotomy by Dr. Jones with repair of perforated duodenal ulcer and control of bleeding, pyloroplasty. Therefore patient could not be seen yesterday. Today patient is on propofol 30 mcg/kg/m. She also has received Dilaudid 2 mg IV. Per nursing report, she does respond to pain equally in the upper and lower limbs. Patient is in a lot of pain for which she was given Dilaudid. She did not follow commands however. At present exam was limited because of patient being sedated. 10/15/2021: Patient is a 66-year-old female admitted to the hospital for leg wounds. She has bilateral leg wounds, that have been weeping. Lately she has been falling and bumped her head. Patient underwent debridement of the wounds yesterday. Patient's was also present, who states that patient lives with her . She does not have any deficits otherwise. She walks by herself, does not use any assistive device. She has been complaining of a lot of pain in her legs. Because of her falls, she underwent a routine computed tomography scan of the head, which incidentally revealed subacute right parietal infarct. Patient also has toxic metabolic encephalopathy from UTI and perhaps pain medication. Patient was not taking any antiplatelet medication at home. CT head revealed right middle cerebral artery distribution subacute infarct, involving the right parietal temporal region. Patchy white matter hypodensity consistent with chronic small vessel ischemia. I personally reviewed computed tomography scan of the head and agree with the findings. Patient has smoked half pack per day for 40-50 years. This lately she has stopped. She has been diagnosed with diabetes while in this hospital, as her hemoglobin A1c is 8. No previous history of diabetes. Objective - Vital Signs Vital signs: Vital Signs Temp 98.2 F 10/29/21 14:00 Pulse 86 10/29/21 14:00 Resp 16 10/29/21 14:00 BP 119/67 10/29/21 14:00 Pulse Ox 100 10/29/21 14:00 Intake & Output 10/28/21 10/29/21 10/29/21 18:59 06:59 18:59 Intake Total 1080 Output Total 900 880 Balance 180 -880 Weight 90 kg Intake: Oral 1080 Output: Drainage 30 Right Upper Abdomen 30 Urine 900 850 Other: Voiding Method External Catheter # Voids 2 ABP, PAP, CO, CI - Last Documented Arterial Blood Pressure 97/69 - Exam Patient alert and awake. Patient is hyperverbal. She knows it is October 2021 and that she is in [facility] in [place]. Speech and language functions are normal. Cranial nerves only significant for left homonymous hemianopia. Muscle strength is normal. Sensory equal with no neglect. - Labs CBC & Chem 7: 10/30/21 03:43 05/17/22 03:57 Labs: Abnormal Lab Results - Last 24 Hours (Table) 10/28/21 10/29/21 10/29/21 Range/Units 03:31 03:57 03:57 RBC 2.59 L (4.10-5.20) X 10*6/uL Hgb 7.5 L (12.0-15.0) g/dL Hct 24.8 L (37.2-46.3) % MCHC 30.2 L (32.0-37.0) g/dL RDW 17.4 H (11.5-14.5) % Plt Count 592 H (140-440) X 10*3/uL MPV 9.3 L (9.5-12.2) fL Immature Gran # 0.17 H (0.00-0.04) X 10*3/uL Monocytes # 1.48 H (0.20-1.00) X 10*3/uL Anion Gap 9.70 L (10.00-18.00) mmol/L BUN/Creatinine Ratio 28.93 H (12.00-20.00) Ratio POC Glucose (mg/dL) (75-99) mg/dL Calcium 7.7 L (8.7-10.3) mg/dL Folate 4.30 L (4.40-31.00) ng/mL 10/29/21 10/29/21 Range/Units 11:14 16:53 RBC (4.10-5.20) X 10*6/uL Hgb (12.0-15.0) g/dL Hct (37.2-46.3) % MCHC (32.0-37.0) g/dL RDW (11.5-14.5) % Plt Count (140-440) X 10*3/uL MPV (9.5-12.2) fL Immature Gran # (0.00-0.04) X 10*3/uL Monocytes # (0.20-1.00) X 10*3/uL Anion Gap (10.00-18.00) mmol/L BUN/Creatinine Ratio (12.00-20.00) Ratio POC Glucose (mg/dL) 111 H 185 H (75-99) mg/dL Calcium (8.7-10.3) mg/dL Folate (4.40-31.00) ng/mL Assessment and Plan Assessment: 1. Large, subacute, right cerebral hemispheric infarct, involving the right parietal temporal region-patient does have some left-sided visual field deficits. Left hemisensory neglect has resolved. 2. Toxic encephalopathy/delirium secondary to infection 3. Acute UTI. Urine cultures growing E. coli. 4. New onset diabetes 5. Tobacco use 6. Weeping ulcers of the lower extremities, status post debridement 7. Status post exploratory laparotomy with repair of perforated duodenal ulcer, control of bleeding and pyloroplasty 10/16/2021. Plan: 1. Surgery has cleared the patient to be started on dual antiplatelet medication. Patient currently tolerating aspirin 81 mg and Plavix [address] Schwartz has initially recommended dual antiplatelet medication for 21 days and then stop Plavix and continue aspirin indefinitely. Patient may be placed on a single antiplatelet agent at this time, whichever is more safer from GI standpoint (aspirin or Plavix). Patient on Protonix 40 mg IV twice a day. Continue Lipitor 40 mg daily. 2. Neurologically patient has remarkably improved. She has only residual left homonymous hemianopia. Rest of the examination appears nonfocal. 3. Patient still appears slightly delirious probably from hospitalization, recent significant illnesses, and other medical conditions. 4. 2-D echocardiogram revealed inferoseptal hypokinesis or aortic sclerosis with mild aortic stenosis and mild mitral and mild to moderate tricuspid re gurgitation. EF is 40-45%. Grade 1 diastolic dysfunction. Mid to basal inferoseptal is hypokinetic. 5. Carotid Doppler revealed no significant common or internal carotid artery stenosis. Antegrade flow in the left vertebral artery. Unable to identify flow on the right side 6. PT, OT and speech therapy evaluations. Lipid panel cholesterol 159, LDL 101, HDL 28.3 and triglycerides 146, continue Lipitor 40 mg daily. 7. Hemoglobin A1c 8.0. Recommend optimize control of diabetes to target A1c <7.0. TSH slightly low 0.222 with normal free T4 1 0.63. IM to address thyroid functions. 8. UA shows large amount of leukocyte Estrace. Urine growing E. coli. Patient currently on cefepime and Eraxis. ID following. 9. Discussed with patient's in detail. Neurologically clear
[2021-10-30 10:48] LABS: African American GFR (CKD) 87.8 (60.0-200.0); Anion Gap 7.9 mmol/L (10.00-18.00); BUN/Creat Ratio 26.88 Ratio (12.00-20.00); Blood Urea Nitrogen 21.5 mg/dL (9.0-27.0); Calcium 7.7 mg/dL (8.7-10.3); Carbon Dioxide 21.1 mmol/L (20.0-27.5); Non-African American GFR(CKD) 75.8 (60.0-200.0); Potassium 4.1 mmol/L (3.5-5.5)
[2021-10-30 11:55] LABS: Glucose,Whole Blood 136 mg/dL (75-99)
[2021-10-30 13:20] LABS: Anisocytosis Slight; HCT 26.7 % (34.0-46.0); HGB 8.2 gm/dL (11.4-16.0); Hypochromasia Marked; MCH 29.5 pg (25.0-35.0); MCHC 30.7 g/dL (31.0-37.0); MCV 96.3 fL (80.0-100.0); Macrocytosis Slight; Platelet Count 684 k/uL (150-450); Poikilocytosis Slight; RBC 2.77 m/uL (3.80-5.40); RDW 17.4 % (11.5-15.5); WBC 8.4 k/uL (3.8-10.6)
--- NOTE | 2021-10-30 14:11 | P.DS ---
Providers Date of admission: 10/11/21 19:45 Expected date of discharge: 10/30/21 Attending physician: Brittaney Almazan MD Consults: 10/12/21 01:39 Consult Physician Routine Consulting Provider: Evans Jones Consult Reason/Comments: odd behavior Do you want consulting provider notified?: Yes, Notify in am Consult Physician Routine Consulting Provider: Arjun Andrew Consult Reason/Comments: subacute stroke Do you want consulting provider notified?: Yes, Notify in am 10/12/21 08:55 Consult Physician Routine Consulting Provider: Jam Penaloza Consult Reason/Comments: b/l le wounds Do you want consulting provider notified?: Yes 10/12/21 14:02 Consult Physician Routine Consulting Provider: Abel Mccall Consult Reason/Comments: cardiomyopathy Do you want consulting provider notified?: Yes 10/12/21 16:35 Consult Physician Routine Consulting Provider: Jono Cameron Consult Reason/Comments: bilateral leg wound , debridemnt and deep cultures Do you want consulting provider notified?: Yes 10/16/21 17:01 Consult Physician Routine Consulting Provider: Cliff Modi Consult Reason/Comments: Hypovolemic shock Do you want consulting provider notified?: Yes 10/16/21 19:23 Consult Physician Routine Consulting Provider: Dashawn Soto Consult Reason/Comments: GI bleed Do you want consulting provider notified?: Yes Primary care physician: Stated None Hospital Course: Discharge Diagnosis: Acute GI blood loss anemia Perforated duodenal ulcer status post laparotomy Acute hypoxic respiratory failure Acute on chronic systolic heart failure with EF of 40-45% Large subacute right cerebellar hemispheric infarct Bilateral lower extremity nonhealing wounds and cellulitis likely due to venous stasis ulcer Acute UTI Encephalopathic the likely toxic metabolic and ischemic New-onset diabetes mellitus type 2 History of smoking History of CVA Hospital Course: Patient is a 66-year-old female with no significant past medical history and has not follow-up with a doctor in over 20 years who presents with bilateral leg wounds. Patient had a very complicated hospital course. She was treated for the following medical conditions She was found to have acute blood loss anemia requiring multiple blood transfusions Her acute blood loss anemia was secondary to perforation of duodenal ulcer Patient had a laparotomy done and repair of the perforation by general surgery At the time of discharge patient's hemoglobin was stable. She was started on Protonix 40 mg twice a day. She was tolerating her diet well. She is cleared for discharge by general surgery. She was instructed to follow-up with general surgery outpatient. Patient also found to have a large subacute right cerebellar hemispheric infarct Due to the patient's acute blood loss anemia neurology recommended only aspirin on discharge Patient also started on Lipitor Patient was also in acute hypoxic respiratory failure Echocardiogram showed EF of 40-45% She was treated with diuretics. At the time of discharge patient was euvolemic and was transitioned to Lasix 20 mg daily Patient instructed to follow-up with cardiology Patient is being followed by infectious disease for lower extremity wounds She was treated broad-spectrum antibiotics At the time of discharge infectious disease recommended Cipro Flagyl and Keflex for 7 more days Patient will need routine wound care dressings at the senior care Patient also found to have new-onset diabetes mellitus with a hemoglobin A1c of 8.0 Patient was started on metformin At the time of discharge patient would at times speaking incoherently. However she was AAO 3 and was following commands. Patient deemed stable for discharge to group home facility Patient seen and examined at bedside.[] General examination - Alert and Oriented 3 in NAD Heart - + S1S2 no murmurs Lungs - Clear to auscultation Abdomen soft NT ND +ve BS Extremities - No edema RESTORATIVE CARE TECHNICIAN - Moving all 4 extremities spontaneously Psych - mildly confused A total of [40] minutes of time were spent preparing this complex discharge summary . Patient Condition at Discharge: Fair Plan - Discharge Summary Discharge Rx Participant: Yes New Discharge Prescriptions: New Aspirin 81 mg PO DAILY Ciprofloxacin HCl [Cipro] 500 mg PO Q12HR 7 Days #14 tab metroNIDAZOLE [Flagyl] 500 mg PO TID 7 Days #21 tab Furosemide [Lasix] 20 mg PO DAILY tab Atorvastatin [Lipitor] 40 mg PO DAILY tab Pantoprazole [Protonix] 40 mg PO BID 30 Days #30 tab Cephalexin [Keflex] 500 mg PO Q12HR 7 Days #14 cap Gabapentin [Neurontin] 100 mg PO TID cap Acetaminophen Tab [Tylenol] 650 mg PO Q6HR PRN tab PRN Reason: Fever And/ Or Pain metFORMIN HCL 500 mg PO BID 30 Days #60 tablet Continue [place]-3 Fatty Acids/Fish Oil [Fish Oil 1,000 mg Softgel] 1 cap PO DAILY Flaxseed Oil 1,000 mg PO DAILY Vitamin A [Vitamin A (8,000 Units = 2,400 MCG)] 2,400 mcg PO DAILY Sennosides [Ex-Lax Chew] 15 mg PO DAILY PRN PRN Reason: Constipation Ascorbic Acid [Vitamin C] 1,000 mg PO DAILY Discontinued Ibuprofen [Motrin Ib] 600 mg PO Q8H PRN PRN Reason: Pain Or Fever > 100.5 Magnesium Oxide [Mag-Ox] 400 mg PO DAILY Naproxen Sodium [Aleve] 220 mg PO BID PRN PRN Reason: Pain Potassium Gluconate [Potassium Gluconate ER] 99 mg PO DAILY No Action Multivitamins, Thera [Multivitamin (formulary)] 1 tab PO DAILY Cholecalciferol [Vitamin D3 (125 Mcg = 5000 Iu)] 125 mcg PO DAILY Discharge Medication List Ascorbic Acid [Vitamin C] 1,000 mg PO DAILY 10/11/21 [History] Cholecalciferol [Vitamin D3 (125 Mcg = 5000 Iu)] 125 mcg PO DAILY 10/11/21 [History] Flaxseed Oil 1,000 mg PO DAILY 10/11/21 [History] Multivitamins, Thera [Multivitamin (formulary)] 1 tab PO DAILY 10/11/21 [History] [place]-3 Fatty Acids/Fish Oil [Fish Oil 1,000 mg Softgel] 1 cap PO DAILY 10/11/21 [History] Sennosides [Ex-Lax Chew] 15 mg PO DAILY PRN 10/11/21 [History] Vitamin A [Vitamin A (8,000 Units = 2,400 MCG)] 2,400 mcg PO DAILY 10/11/21 [History] Acetaminophen Tab [Tylenol] 650 mg PO Q6HR PRN tab 10/30/21 [Rx] Aspirin 81 mg PO DAILY 10/30/21 [Rx] Atorvastatin [Lipitor] 40 mg PO DAILY tab 10/30/21 [Rx] Cephalexin [Keflex] 500 mg PO Q12HR 7 Days #14 cap 10/30/21 [Rx] Ciprofloxacin HCl [Cipro] 500 mg PO Q12HR 7 Days #14 tab 10/30/21 [Rx] Furosemide [Lasix] 20 mg PO DAILY tab 10/30/21 [Rx] Gabapentin [Neurontin] 100 mg PO TID cap 10/30/21 [Rx] Pantoprazole [Protonix] 40 mg PO BID 30 Days #30 tab 10/30/21 [Rx] metFORMIN HCL 500 mg PO BID 30 Days #60 tablet 10/30/21 [Rx] metroNIDAZOLE [Flagyl] 500 mg PO TID 7 Days #21 tab 10/30/21 [Rx] Follow up Appointment(s)/Referral(s): Dashawn Soto MD [Medical Doctor] - 1 Week Tylor Rich DO [STAFF PHYSICIAN] - 1 Week None,Stated [Primary Care Provider] - 1-2 days Activity/Diet/Wound Care/Special Instructions: Discharging RN - Glucometer is at [facility] - please make sure she gets it prior to discharge. Cost is $58.48. Discharge Disposition: TRANSFER TO SNF/ECF
--- NOTE | 2021-10-30 14:11 | P.PN ---
Subjective Progress Note Date: 10/30/21 CHIEF COMPLAINT: Duodenal ulcer HISTORY OF PRESENT ILLNESS: Patient is status post Exploratory laparotomy with repair of perforated duodenal ulcer and control of bleeding, pyloroplasty on 10/16/21. Patient is lying in bed comfortably. Patient reports some abdominal cramping. She was able to have a bowel movement yesterday. Denies any nausea or vomiting. Tolerating diet. MARIA LUISA drain 50 mL serous output. Possible discharge to ECF later today. Afebrile. WBC normal down from 10.8 to 8.4 hemoglobin is up from 7-8.2 platelets 684 PHYSICAL EXAM: VITAL SIGNS: Reviewed. GENERAL: Well-developed in no acute distress. HEENT: No sclera icterus. Extraocular movements grossly intact. Moist buccal mucosa. Head is atraumatic, normocephalic. ABDOMEN: Soft. nondistended. Abdominal binder in place. MARIA LUISA drain 30ml serous fluid output ASSESSMENT: 1. Duodenal ulcer with perforation and active bleeding status post Exploratory laparotomy with repair of perforated duodenal ulcer and control of bleeding, pyloroplasty. PLAN: -Patient can be discharged from surgical standpoint when medically stable -Discontinue MARIA LUISA drain -continue dysphagia chopped diet -Continue PPI -No NSAIDs -Antibiotics per ID service Physician Wood Mill Supervisor note has been reviewed by physician. Signing provider agrees with the documented findings, assessment, and plan of care. I have personally seen and examined the patient, reviewed the EX ASSISTANT/PROGRAM DIRECTOR /PAs history, exam and MDM and agree with the assessment and plan as written. Based on total visit time, I have performed more than 50% of the visit. As above: Patient doing well today. May discharge to rehab. May remove MARIA LUISA drain. Follow-up as outpatient. Objective - Vital Signs Vital signs: Vital Signs Temp 98.4 F 10/30/21 07:32 Pulse 93 10/30/21 07:32 Resp 18 10/30/21 07:32 BP 108/62 10/30/21 07:32 Pulse Ox 95 10/30/21 07:32 Intake & Output 10/29/21 10/30/21 10/30/21 18:59 06:59 18:59 Output Total 700 50 Balance -700 -50 Output: Drainage 50 Right Upper Abdomen 50 Urine 700 Other: Voiding Method External Catheter External Catheter ABP, PAP, CO, CI - Last Documented Arterial Blood Pressure 97/69 - Labs CBC & Chem 7: 10/30/21 12:41 10/30/21 03:43 Labs: Abnormal Lab Results - Last 24 Hours (Table) 10/29/21 10/29/21 10/29/21 Range/Units 16:53 20:25 23:36 WBC (4.50-10.00) X 10*3/uL RBC (4.10-5.20) X 10*6/uL Hgb (12.0-15.0) g/dL Hct (37.2-46.3) % MCHC (32.0-37.0) g/dL RDW (11.5-14.5) % Plt Count (140-440) X 10*3/uL MPV (9.5-12.2) fL Immature Gran # (0.00-0.04) X 10*3/uL Neutrophils # (1.80-7.70) X 10*3/uL Monocytes # (0.20-1.00) X 10*3/uL Sodium (135-145) mmol/L Anion Gap (10.00-18.00) mmol/L BUN/Creatinine Ratio (12.00-20.00) Ratio POC Glucose (mg/dL) 185 H 130 H 119 H (75-99) mg/dL Calcium (8.7-10.3) mg/dL 10/30/21 10/30/21 10/30/21 Range/Units 03:43 03:43 05:52 WBC 10.82 H (4.50-10.00) X 10*3/uL RBC 2.38 L (4.10-5.20) X 10*6/uL Hgb 7.0 L (12.0-15.0) g/dL Hct 22.6 L (37.2-46.3) % MCHC 31.0 L (32.0-37.0) g/dL RDW 17.3 H (11.5-14.5) % Plt Count 596 H (140-440) X 10*3/uL MPV 9.3 L (9.5-12.2) fL Immature Gran # 0.11 H (0.00-0.04) X 10*3/uL Neutrophils # 7.98 H (1.80-7.70) X 10*3/uL Monocytes # 1.50 H (0.20-1.00) X 10*3/uL Sodium 133 L (135-145) mmol/L Anion Gap 7.90 L (10.00-18.00) mmol/L BUN/Creatinine Ratio 26.88 H (12.00-20.00) Ratio POC Glucose (mg/dL) 110 H (75-99) mg/dL Calcium 7.7 L (8.7-10.3) mg/dL 10/30/21 10/30/21 10/30/21 Range/Units 06:46 11:53 12:41 WBC (4.50-10.00) X 10*3/uL RBC 2.77 L (4.10-5.20) X 10*6/uL Hgb 8.2 L (12.0-15.0) g/dL Hct 26.7 L (37.2-46.3) % MCHC 30.7 L (32.0-37.0) g/dL RDW 17.4 H (11.5-14.5) % Plt Count 684 H (140-440) X 10*3/uL MPV (9.5-12.2) fL Immature Gran # (0.00-0.04) X 10*3/uL Neutrophils # (1.80-7.70) X 10*3/uL Monocytes # (0.20-1.00) X 10*3/uL Sodium (135-145) mmol/L Anion Gap (10.00-18.00) mmol/L BUN/Creatinine Ratio (12.00-20.00) Ratio POC Glucose (mg/dL) 107 H 136 H (75-99) mg/dL Calcium (8.7-10.3) mg/dL
[2021-10-30 16:44] LABS: Glucose,Whole Blood 154 mg/dL (75-99)
[2021-10-30] MEDS: PANTOPRAZOLE 40 MG TABLET PO SCH (20:33)
[2021-10-30 23:23] LABS: Glucose,Whole Blood 119 mg/dL (75-99)
[2021-10-31] MEDS: INSULIN ASPART (NovoLOG) 100 UNIT/ML VIAL SQ SCH ×5 (00:34→20:54)
[2021-10-31 05:46] LABS: Glucose,Whole Blood 109 mg/dL (75-99)
--- NOTE | 2021-10-31 07:17 | P.PN ---
Subjective Progress Note Date: 10/29/21 Principal diagnosis: Bilateral lower extremity venous stasis ulcer and cellulitis Patient is a 66-year-old female who has not seen a physician in 20 years presented to the hospital with significant bilateral lower extremity necrotic wound and secondary cellulitis in this patient who is status post surgical debridement of these wounds in the OR on 10/13/2021. Patient did have a GI bleed could not be controlled through the EGD patient subsequently taken to the OR and status post laparotomy for a bleeding and perforated duodenal ulcer disease on 10/16/2021 On today's evaluation that is 10/29/2021, the patient remains to be afebrile, the patient is breathing comfortably on nasal cannula Oxygen, patient denies chest pain shortness of breath or cough, the patient denies abdominal pain no diarrhea Objective - Vital Signs Vital signs: Vital Signs Temp 98.5 F 10/29/21 08:00 Pulse 82 10/29/21 08:00 Resp 18 10/29/21 08:00 BP 109/63 10/29/21 08:00 Pulse Ox 96 10/29/21 08:00 Intake & Output 10/28/21 10/29/21 10/29/21 18:59 06:59 18:59 Intake Total 1080 Output Total 900 880 Balance 180 -880 Weight 90 kg Intake: Oral 1080 Output: Drainage 30 Right Upper Abdomen 30 Urine 900 850 Other: Voiding Method External Catheter # Voids 2 ABP, PAP, CO, CI - Last Documented Arterial Blood Pressure 97/69 - Exam GENERAL DESCRIPTION: An elderly female lying in bed in no distress RESPIRATORY SYSTEM: Unlabored breathing , decreased breath sounds at bases HEART: S1 S2 regular rate and rhythm , ABDOMEN: Soft , no tenderness EXTREMITIES: Bilateral lower extremity wounds are currently dressed no drainage on the dressing - Labs CBC & Chem 7: 10/30/21 12:41 10/30/21 03:43 Labs: Abnormal Lab Results - Last 24 Hours (Table) 10/28/21 10/28/21 10/29/21 Range/Units 03:31 17:52 03:57 RBC (4.10-5.20) X 10*6/uL Hgb (12.0-15.0) g/dL Hct (37.2-46.3) % MCHC (32.0-37.0) g/dL RDW (11.5-14.5) % Plt Count (140-440) X 10*3/uL MPV (9.5-12.2) fL Immature Gran # (0.00-0.04) X 10*3/uL Monocytes # (0.20-1.00) X 10*3/uL Anion Gap 9.70 L (10.00-18.00) mmol/L BUN/Creatinine Ratio 28.93 H (12.00-20.00) Ratio POC Glucose (mg/dL) 138 H (75-99) mg/dL Calcium 7.7 L (8.7-10.3) mg/dL Folate 4.30 L (4.40-31.00) ng/mL 10/29/21 10/29/21 Range/Units 03:57 11:14 RBC 2.59 L (4.10-5.20) X 10*6/uL Hgb 7.5 L (12.0-15.0) g/dL Hct 24.8 L (37.2-46.3) % MCHC 30.2 L (32.0-37.0) g/dL RDW 17.4 H (11.5-14.5) % Plt Count 592 H (140-440) X 10*3/uL MPV 9.3 L (9.5-12.2) fL Immature Gran # 0.17 H (0.00-0.04) X 10*3/uL Monocytes # 1.48 H (0.20-1.00) X 10*3/uL Anion Gap (10.00-18.00) mmol/L BUN/Creatinine Ratio (12.00-20.00) Ratio POC Glucose (mg/dL) 111 H (75-99) mg/dL Calcium (8.7-10.3) mg/dL Folate (4.40-31.00) ng/mL Assessment and Plan (1) Cellulitis Current Visit: Yes Status: Acute Code(s): L03.90 - CELLULITIS, UNSPECIFIED SNOMED Code(s): 965965305 Plan: 1patient with bilateral lower extremity nonhealing wound and cellulitis seems to be more of a venous stasis ulcers with secondary cellulitis and likely from gram-positive skin pb less likely gram-negative infection in this patient has not seen a physician for 20 years less likelihood of a MRSA infection. 2 patient is status post surgical debridement and deep culture which are currently growing multiple pathogens including Pseudomonas strep 3patient did have acute GI bleed with evidence of perforated and bleeding duodenal ulcer requiring laparotomy, patient has showed overall clinical improvement and the patient white count has normalized, patient will continue with cefepime flagyl and Eraxis and local wound care to the leg as ordered and will finish therapy with oral antibiotics Time with Patient: Less than 30
--- NOTE | 2021-10-31 07:18 | P.PN ---
Subjective Progress Note Date: 10/30/21 Principal diagnosis: Bilateral lower extremity venous stasis ulcer and cellulitis Patient is a 66-year-old female who has not seen a physician in 20 years presented to the hospital with significant bilateral lower extremity necrotic wound and secondary cellulitis in this patient who is status post surgical debridement of these wounds in the OR on 10/13/2021. Patient did have a GI bleed could not be controlled through the EGD patient subsequently taken to the OR and status post laparotomy for a bleeding and perforated duodenal ulcer disease on 10/16/2021 On today's evaluation that is 10/30/2021, the patient denies any fever or any chills, the patient is breathing comfortably on room air, patient denies chest pain shortness of breath or cough, the patient denies abdominal pain no diarrhea, denies pain to his lower extremity wounds Objective - Vital Signs Vital signs: Vital Signs Temp 98.4 F 10/30/21 07:32 Pulse 93 10/30/21 07:32 Resp 18 10/30/21 07:32 BP 108/62 10/30/21 07:32 Pulse Ox 95 10/30/21 07:32 Intake & Output 10/29/21 10/30/21 10/30/21 18:59 06:59 18:59 Output Total 700 Balance -700 Output: Urine 700 Other: Voiding Method External Catheter ABP, PAP, CO, CI - Last Documented Arterial Blood Pressure 97/69 - Exam GENERAL DESCRIPTION: An elderly female up in the chair in no distress RESPIRATORY SYSTEM: Unlabored breathing , decreased breath sounds at bases HEART: S1 S2 regular rate and rhythm , ABDOMEN: Soft , no tenderness EXTREMITIES: Bilateral lower extremity wounds are currently dressed no drainage on the dressing - Labs CBC & Chem 7: 10/30/21 12:41 10/30/21 03:43 Labs: Abnormal Lab Results - Last 24 Hours (Table) 10/29/21 10/29/21 10/29/21 Range/Units 11:14 16:53 20:25 WBC (4.50-10.00) X 10*3/uL RBC (4.10-5.20) X 10*6/uL Hgb (12.0-15.0) g/dL Hct (37.2-46.3) % MCHC (32.0-37.0) g/dL RDW (11.5-14.5) % Plt Count (140-440) X 10*3/uL MPV (9.5-12.2) fL Immature Gran # (0.00-0.04) X 10*3/uL Neutrophils # (1.80-7.70) X 10*3/uL Monocytes # (0.20-1.00) X 10*3/uL POC Glucose (mg/dL) 111 H 185 H 130 H (75-99) mg/dL 10/29/21 10/30/21 10/30/21 Range/Units 23:36 03:43 05:52 WBC 10.82 H (4.50-10.00) X 10*3/uL RBC 2.38 L (4.10-5.20) X 10*6/uL Hgb 7.0 L (12.0-15.0) g/dL Hct 22.6 L (37.2-46.3) % MCHC 31.0 L (32.0-37.0) g/dL RDW 17.3 H (11.5-14.5) % Plt Count 596 H (140-440) X 10*3/uL MPV 9.3 L (9.5-12.2) fL Immature Gran # 0.11 H (0.00-0.04) X 10*3/uL Neutrophils # 7.98 H (1.80-7.70) X 10*3/uL Monocytes # 1.50 H (0.20-1.00) X 10*3/uL POC Glucose (mg/dL) 119 H 110 H (75-99) mg/dL 10/30/21 Range/Units 06:46 WBC (4.50-10.00) X 10*3/uL RBC (4.10-5.20) X 10*6/uL Hgb (12.0-15.0) g/dL Hct (37.2-46.3) % MCHC (32.0-37.0) g/dL RDW (11.5-14.5) % Plt Count (140-440) X 10*3/uL MPV (9.5-12.2) fL Immature Gran # (0.00-0.04) X 10*3/uL Neutrophils # (1.80-7.70) X 10*3/uL Monocytes # (0.20-1.00) X 10*3/uL POC Glucose (mg/dL) 107 H (75-99) mg/dL Assessment and Plan (1) Cellulitis Current Visit: Yes Status: Acute Code(s): L03.90 - CELLULITIS, UNSPECIFIED SNOMED Code(s): 438097815 Plan: 1patient with bilateral lower extremity nonhealing wound and cellulitis seems to be more of a venous stasis ulcers with secondary cellulitis and likely from gram-positive skin pb less likely gram-negative infection in this patient has not seen a physician for 20 years less likelihood of a MRSA infection. 2 patient is status post surgical debridement and deep culture which are currently growing multiple pathogens including Pseudomonas strep 3patient did have acute GI bleed with evidence of perforated and bleeding duodenal ulcer requiring laparotomy, patient has showed overall clinical improvement, the patient did have a normal white count is 6 was negative, has received more than 2 weeks of adequate IV antibiotic therapy may consider short course of oral Cipro and Flagyl and Keflex on discharge, this was discussed with the primary team working on discharge Time with Patient: Less than 30
[2021-10-31] MEDS: FUROSEMIDE 20 MG TAB PO SCH (08:25)
[2021-10-31] MEDS: PANTOPRAZOLE 40 MG TABLET PO SCH ×2 (08:25→17:40)
[2021-10-31] MEDS: ENOXAPARIN 40 MG/0.4 ML SYRINGE SQ SCH (08:26)
[2021-10-31] MEDS: ATORVASTATIN 40 MG TAB PO SCH (08:26)
[2021-10-31] MEDS: GABAPENTIN 100 MG CAP PO SCH ×3 (08:26→20:55)
[2021-10-31] MEDS: ASPIRIN 81 MG PO SCH (08:26)
[2021-10-31] MEDS: CEFEPIME 2 GM in SODIUM CHLORIDE 0.9% 100 ML IVPB SCH (08:26)
[2021-10-31 11:43] LABS: Glucose,Whole Blood 112 mg/dL (75-99)
[2021-10-31] MEDS: ANIDULAFUNGIN 100 MG in SODIUM CHLORIDE 0.9% 100 ML IVPB SCH (12:41)
--- NOTE | 2021-10-31 13:41 | P.PN ---
Subjective Progress Note Date: 10/31/21 CHIEF COMPLAINT: Duodenal ulcer HISTORY OF PRESENT ILLNESS: Patient is status post Exploratory laparotomy with repair of perforated duodenal ulcer and control of bleeding, pyloroplasty on 10/16/21. Patient is lying in bed comfortably. Patient's MARIA LUISA drain was discontinued yesterday. Patient reports minimal abdominal pain that is controlled. Denies any nausea or vomiting. Tolerating diet. Patient reports some abdominal cramping. Possible discharge to [facility] later today. Patient is awaiting insurance authorization. Afebrile. WBC is 8.4 hemoglobin 8.2 platelets 684 from yesterday PHYSICAL EXAM: VITAL SIGNS: Reviewed. GENERAL: Well-developed in no acute distress. HEENT: No sclera icterus. Extraocular movements grossly intact. Moist buccal mucosa. Head is atraumatic, normocephalic. ABDOMEN: Soft. nondistended. Abdominal incision clean dry and intact ASSESSMENT: 1. Duodenal ulcer with perforation and active bleeding status post Exploratory laparotomy with repair of perforated duodenal ulcer and control of bleeding, pyloroplasty. PLAN: -Patient can be discharged from surgical standpoint when medically stable -continue dysphagia chopped diet -Continue PPI -No NSAIDs -Antibiotics per ID service Physician Inspector Filter Tip note has been reviewed by physician. Signing provider agrees with the documented findings, assessment, and plan of care. I have personally seen and examined the patient, reviewed the YARD DEMURRAGE CLERK /PAs history, exam and MDM and agree with the assessment and plan as written. Based on total visit time, I have performed more than 50% of the visit. As above: Patient remains somewhat confused. Tolerating diet. Appetite remains somewhat poor. MARIA LUISA drain was removed. She is afebrile. Labs noted. Possible transfer to rehab this evening. Follow-up 1 week of discharge. Objective - Vital Signs Vital signs: Vital Signs Temp 98.3 F 10/31/21 07:42 Pulse 61 10/31/21 07:42 Resp 18 10/31/21 07:42 BP 92/49 10/31/21 07:42 Pulse Ox 95 10/31/21 07:42 Intake & Output 10/30/21 10/31/21 10/31/21 18:59 06:59 18:59 Intake Total 120 Output Total 1352 800 Balance -1352 120 -800 Intake: IV 120 0.9 Sodium Chloride 120 Output: Drainage 50 Right Upper Abdomen 50 Urine 1300 800 Stool 2 Other: Voiding Method External Catheter External Catheter ABP, PAP, CO, CI - Last Documented Arterial Blood Pressure 97/69 - Labs CBC & Chem 7: 10/30/21 12:41 10/30/21 03:43 Labs: Abnormal Lab Results - Last 24 Hours (Table) 10/30/21 10/30/21 10/31/21 Range/Units 16:42 23:20 05:44 POC Glucose (mg/dL) 154 H 119 H 109 H (75-99) mg/dL 10/31/21 Range/Units 11:42 POC Glucose (mg/dL) 112 H (75-99) mg/dL
--- NOTE | 2021-10-31 16:09 | P.PN ---
Subjective Progress Note Date: 10/30/21 Principal diagnosis: perforated duodenal ulcer Patient denies any acute complaints. She is requesting that comfortably. We are waiting for the prior authorization Objective - Vital Signs Vital signs: Vital Signs Temp 97.5 F L 10/31/21 14:00 Pulse 71 10/31/21 14:00 Resp 17 10/31/21 14:00 BP 108/63 10/31/21 14:00 Pulse Ox 95 10/31/21 15:58 Intake & Output 10/30/21 10/31/21 10/31/21 18:59 06:59 18:59 Intake Total 120 Output Total 1352 800 Balance -1352 120 -800 Intake: IV 120 0.9 Sodium Chloride 120 Output: Drainage 50 Right Upper Abdomen 50 Urine 1300 800 Stool 2 Other: Voiding Method External Catheter External Catheter ABP, PAP, CO, CI - Last Documented Arterial Blood Pressure 97/69 - Exam General examination - Alert and Oriented 3 in NAD Heart - + S1S2 no murmurs Lungs - Clear to auscultation Abdomen soft NT ND +ve BS Extremities - 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 Psych - mildly confused - Labs CBC & Chem 7: 10/30/21 12:41 10/30/21 03:43 Labs: Abnormal Lab Results - Last 24 Hours (Table) 10/30/21 10/30/21 10/31/21 Range/Units 16:42 23:20 05:44 POC Glucose (mg/dL) 154 H 119 H 109 H (75-99) mg/dL 10/31/21 Range/Units 11:42 POC Glucose (mg/dL) 112 H (75-99) mg/dL Assessment and Plan Assessment: Acute GI blood loss anemia Perforated duodenal ulcer status post laparotomy -Diet as per general surgery -Outpatient antibody recommendations from ID -Resume Protonix twice a day -Hemoglobin stable Acute hypoxic respiratory failure Acute on chronic systolic heart failure with EF of 40-45% -Patient transition to oral Lasix -She appears euvolemic -Status post extubation on 10/22/2021 -Patient currently nasal cannula and is satting well Large subacute right cerebral hemispheric infarct -Surgery has cleared the patient for dual antiplatelet medication -Patient started on aspirin. Per neurology okay to hold Plavix in the setting of acute blood loss anemia -Continue Lipitor - 2-D echocardiogram revealed inferoseptal hypokinesis or aortic sclerosis with mild aortic stenosis and mild mitral and mild to moderate tricuspid regurgitation. EF is 40-45%. Grade 1 diastolic dysfunction. Mid to basal inferoseptal is hypokinetic. -Carotid Doppler revealed no significant common or internal carotid artery stenosis. Bilateral lower extremity nonhealing wound and cellulitis likely due to venous stasis ulcer -Status post surgical debridement -Deep cultures grew multiple pathogens including Pseudomonas -Antibiotics per ID -Continue with local wound care Acute UTI -Resume antibiotics per ID Encephalopathy likely toxic metabolic and ischemic -Patient is AAO 3 and is following commands -At time patient can speak incoherently. -Anticipated patient went to status will improve gradually over time -Discontinue all sedating medications New-onset diabetes mellitus type 2 -Hemoglobin A1c is 8.0 -Sliding-scale insulin -We'll discharge the patient on metformin History of smoking History of CVA Cardiomyopathy with LV dysfunction: Patient euvolemic. On Lasix Pt is Full Code DVT PPx on hold due to bleed Patient medically stable for discharge. Awaiting for prior authorization
--- NOTE | 2021-10-31 16:10 | P.PN ---
Subjective Progress Note Date: 10/31/21 Principal diagnosis: perforated duodenal ulcer Patient denies any acute complaints. No acute issues overnight Objective - Vital Signs Vital signs: Vital Signs Temp 97.5 F L 10/31/21 14:00 Pulse 71 10/31/21 14:00 Resp 17 10/31/21 14:00 BP 108/63 10/31/21 14:00 Pulse Ox 95 10/31/21 15:58 Intake & Output 10/30/21 10/31/21 10/31/21 18:59 06:59 18:59 Intake Total 120 Output Total 1352 800 Balance -1352 120 -800 Intake: IV 120 0.9 Sodium Chloride 120 Output: Drainage 50 Right Upper Abdomen 50 Urine 1300 800 Stool 2 Other: Voiding Method External Catheter External Catheter ABP, PAP, CO, CI - Last Documented Arterial Blood Pressure 97/69 - Exam General examination - Alert and Oriented 3 in NAD Heart - + S1S2 no murmurs Lungs - Clear to auscultation Abdomen soft NT ND +ve BS 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 - 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 Psych - mildly confused - Labs CBC & Chem 7: 10/30/21 12:41 10/30/21 03:43 Labs: Abnormal Lab Results - Last 24 Hours (Table) 10/30/21 10/30/21 10/31/21 Range/Units 16:42 23:20 05:44 POC Glucose (mg/dL) 154 H 119 H 109 H (75-99) mg/dL 10/31/21 Range/Units 11:42 POC Glucose (mg/dL) 112 H (75-99) mg/dL Assessment and Plan Assessment: Acute GI blood loss anemia Perforated duodenal ulcer status post laparotomy -Diet as per general surgery -Outpatient antibody recommendations from ID -Resume Protonix twice a day -Hemoglobin stable Acute hypoxic respiratory failure Acute on chronic systolic heart failure with EF of 40-45% -Patient transition to oral Lasix -She appears euvolemic -Status post extubation on 10/22/2021 -Patient currently nasal cannula and is satting well Large subacute right cerebral hemispheric infarct -Surgery has cleared the patient for dual antiplatelet medication -Patient started on aspirin. Per neurology okay to hold Plavix in the setting of acute blood loss anemia -Continue Lipitor - 2-D echocardiogram revealed inferoseptal hypokinesis or aortic sclerosis with mild aortic stenosis and mild mitral and mild to moderate tricuspid regurgitation. EF is 40-45%. Grade 1 diastolic dysfunction. Mid to basal inferoseptal is hypokinetic. -Carotid Doppler revealed no significant common or internal carotid artery stenosis. Bilateral lower extremity nonhealing wound and cellulitis likely due to venous stasis ulcer -Status post surgical debridement -Deep cultures grew multiple pathogens including Pseudomonas -Antibiotics per ID -Continue with local wound care Acute UTI -Resume antibiotics per ID Encephalopathy likely toxic metabolic and ischemic -Patient is AAO 3 and is following commands -At time patient can speak incoherently. -Anticipated patient went to status will improve gradually over time -Discontinue all sedating medications New-onset diabetes mellitus type 2 -Hemoglobin A1c is 8.0 -Sliding-scale insulin -We'll discharge the patient on metformin History of smoking History of CVA Cardiomyopathy with LV dysfunction: Patient euvolemic. On Lasix Pt is Full Code DVT PPx on hold due to bleed Patient medically stable for discharge. Awaiting for prior authorization
[2021-10-31 16:58] LABS: Glucose,Whole Blood 94 mg/dL (75-99)
[2021-10-31 20:43] LABS: Glucose,Whole Blood 141 mg/dL (75-99)
[2021-10-31] MEDS: CEPHALEXIN 500 MG CAP PO SCH (20:53)
[2021-10-31] MEDS: CIPROFLOXACIN HCL 500 MG TAB PO SCH (20:54)
[2021-10-31] MEDS: metroNIDAZOLE 500 MG TAB PO SCH (20:55)
[2021-10-31] MEDS: HYDROcodone/APAP 5-325MG 1 EACH TAB PO PRN (20:55)
[2021-11-01] MEDS: HYDROcodone/APAP 5-325MG 1 EACH TAB PO PRN ×2 (06:31→17:05)
[2021-11-01 07:26] LABS: Glucose,Whole Blood 171 mg/dL (75-99)
[2021-11-01] MEDS: INSULIN ASPART (NovoLOG) 100 UNIT/ML VIAL SQ SCH ×4 (08:58→22:09)
[2021-11-01] MEDS: metroNIDAZOLE 500 MG TAB PO SCH ×3 (08:58→22:08)
[2021-11-01] MEDS: ATORVASTATIN 40 MG TAB PO SCH (08:58)
[2021-11-01] MEDS: ENOXAPARIN 40 MG/0.4 ML SYRINGE SQ SCH (08:58)
[2021-11-01] MEDS: PANTOPRAZOLE 40 MG TABLET PO SCH ×2 (08:58→17:06)
[2021-11-01] MEDS: GABAPENTIN 100 MG CAP PO SCH ×3 (08:58→21:56)
[2021-11-01] MEDS: CEPHALEXIN 500 MG CAP PO SCH ×2 (08:58→21:56)
[2021-11-01] MEDS: FUROSEMIDE 20 MG TAB PO SCH (08:58)
[2021-11-01] MEDS: ASPIRIN 81 MG PO SCH (08:58)
[2021-11-01] MEDS: CIPROFLOXACIN HCL 500 MG TAB PO SCH ×2 (08:59→21:56)
[2021-11-01 12:01] LABS: Glucose,Whole Blood 118 mg/dL (75-99)
--- NOTE | 2021-11-01 12:39 | P.PN ---
Subjective Progress Note Date: 11/01/21 CHIEF COMPLAINT: Duodenal ulcer HISTORY OF PRESENT ILLNESS: Patient is status post Exploratory laparotomy with repair of perforated duodenal ulcer and control of bleeding, pyloroplasty on 10/16/21. Patient is sitting up at bedside chair. Reports that her back pain is controlled. Tolerating diet. She reports that she would like to eat a chicken Quesadilla. She denies any nausea or vomiting. Patient is awaiting insurance authorization for ECF placement. Afebrile. PHYSICAL EXAM: VITAL SIGNS: Reviewed. GENERAL: Well-developed in no acute distress. HEENT: No sclera icterus. Extraocular movements grossly intact. Moist buccal mucosa. Head is atraumatic, normocephalic. ABDOMEN: Soft. nondistended. Abdominal incision clean dry and intact ASSESSMENT: 1. Duodenal ulcer with perforation and active bleeding status post Exploratory laparotomy with repair of perforated duodenal ulcer and control of bleeding, pyloroplasty. PLAN: -Patient can be discharged from surgical standpoint when medically stable -continue dysphagia chopped diet -Continue PPI -No NSAIDs -Antibiotics per ID service -Follow up with Dr. Soto in 1 week Physician Kindergarten Tutor note has been reviewed by physician. Signing provider agrees with the documented findings, assessment, and plan of care. I have personally seen and examined the patient, reviewed the ARTIST MODEL /PAs history, exam and MDM and agree with the assessment and plan as written. Based on total visit time, I have performed more than 50% of the visit. As above: Patient doing well today. No abdominal tenderness, minimal complaints of abdominal discomfort when moving around. Continue diet. Continue antiacid therapy. Objective - Vital Signs Vital signs: Vital Signs Temp 97.9 F 11/01/21 07:16 Pulse 78 11/01/21 07:16 Resp 17 11/01/21 07:16 BP 113/56 11/01/21 07:16 Pulse Ox 100 11/01/21 07:16 Intake & Output 10/31/21 11/01/21 11/01/21 18:59 06:59 18:59 Intake Total 1080 200 Output Total 800 200 2 Balance 280 0 -2 Weight 90 kg Intake: Oral 1080 200 Output: Urine 800 200 Stool 2 Other: Voiding Method External Catheter External Catheter # Bowel Movements 1 0 ABP, PAP, CO, CI - Last Documented Arterial Blood Pressure 97/69 - Labs CBC & Chem 7: 10/30/21 12:41 10/30/21 03:43 Labs: Abnormal Lab Results - Last 24 Hours (Table) 10/31/21 11/01/21 11/01/21 Range/Units 20:38 07:24 11:57 POC Glucose (mg/dL) 141 H 171 H 118 H (75-99) mg/dL Microbiology - Last 24 Hours (Table) 10/13/21 14:20 Fungal Culture - Preliminary Leg - Right
--- NOTE | 2021-11-01 15:09 | P.PN ---
Subjective Progress Note Date: 10/31/21 Principal diagnosis: Bilateral lower extremity venous stasis ulcer and cellulitis Patient is a 66-year-old female who has not seen a physician in 20 years presented to the hospital with significant bilateral lower extremity necrotic wound and secondary cellulitis in this patient who is status post surgical debridement of these wounds in the OR on 10/13/2021. Patient did have a GI bleed could not be controlled through the EGD patient subsequently taken to the OR and status post laparotomy for a bleeding and perforated duodenal ulcer disease on 10/16/2021 On today's evaluation that is 10/31/2021, the patient remains to be afebrile, the patient is breathing comfortably on nasal cannula oxygen, patient denies chest pain shortness of breath or cough, the patient denies abdominal pain no diarrhea, denies pain to his lower extremity wounds Objective - Vital Signs Vital signs: Vital Signs Temp 97.5 F L 10/31/21 14:00 Pulse 71 10/31/21 14:00 Resp 17 10/31/21 14:00 BP 108/63 10/31/21 14:00 Pulse Ox 100 10/31/21 14:00 Intake & Output 10/30/21 10/31/21 10/31/21 18:59 06:59 18:59 Intake Total 120 Output Total 1352 800 Balance -1352 120 -800 Intake: IV 120 0.9 Sodium Chloride 120 Output: Drainage 50 Right Upper Abdomen 50 Urine 1300 800 Stool 2 Other: Voiding Method External Catheter External Catheter ABP, PAP, CO, CI - Last Documented Arterial Blood Pressure 97/69 - Exam GENERAL DESCRIPTION: An elderly female up in the chair in no distress RESPIRATORY SYSTEM: Unlabored breathing , decreased breath sounds at bases HEART: S1 S2 regular rate and rhythm , ABDOMEN: Soft , no tenderness EXTREMITIES: Bilateral lower extremity wounds are currently dressed no drainage on the dressing - Labs CBC & Chem 7: 10/30/21 12:41 10/30/21 03:43 Labs: Abnormal Lab Results - Last 24 Hours (Table) 10/30/21 10/30/21 10/31/21 Range/Units 16:42 23:20 05:44 POC Glucose (mg/dL) 154 H 119 H 109 H (75-99) mg/dL 10/31/21 Range/Units 11:42 POC Glucose (mg/dL) 112 H (75-99) mg/dL Assessment and Plan (1) Cellulitis Current Visit: Yes Status: Acute Code(s): L03.90 - CELLULITIS, UNSPECIFIED SNOMED Code(s): 767860811 Plan: 1patient with bilateral lower extremity nonhealing wound and cellulitis seems to be more of a venous stasis ulcers with secondary cellulitis and likely from gram-positive skin pb less likely gram-negative infection in this patient has not seen a physician for 20 years less likelihood of a MRSA infection. 2 patient is status post surgical debridement and deep culture which are currently growing multiple pathogens including Pseudomonas strep 3patient did have acute GI bleed with evidence of perforated and bleeding duodenal ulcer requiring laparotomy, patient has showed overall clinical im provement, the patient did have a normal white count is 6 was negative, has received more than 2 weeks of adequate IV antibiotic therapy , recommending short course of oral Cipro and Flagyl and Keflex on discharge, local wound care to continue as ordered Time with Patient: Less than 30
--- NOTE | 2021-11-01 15:10 | P.PN ---
Subjective Progress Note Date: 11/01/21 Principal diagnosis: Bilateral lower extremity venous stasis ulcer and cellulitis Patient is a 66-year-old female who has not seen a physician in 20 years presented to the hospital with significant bilateral lower extremity necrotic wound and secondary cellulitis in this patient who is status post surgical debridement of these wounds in the OR on 10/13/2021. Patient did have a GI bleed could not be controlled through the EGD patient subsequently taken to the OR and status post laparotomy for a bleeding and perforated duodenal ulcer disease on 10/16/2021 On today's evaluation that is 11/01/2021, the patient denies any fever or chills, the patient is breathing comfortably on nasal cannula oxygen, patient denies chest pain shortness of breath or cough, the patient denies abdominal pain and no diarrhea has been reported by the nursing staff, the patient denies pain to his lower extremity wounds Objective - Vital Signs Vital signs: Vital Signs Temp 97.9 F 11/01/21 07:16 Pulse 78 11/01/21 07:16 Resp 17 11/01/21 07:16 BP 113/56 11/01/21 07:16 Pulse Ox 100 11/01/21 07:16 Intake & Output 10/31/21 11/01/21 11/01/21 18:59 06:59 18:59 Intake Total 1080 200 Output Total 800 200 2 Balance 280 0 -2 Intake: Oral 1080 200 Output: Urine 800 200 Stool 2 Other: Voiding Method External Catheter External Catheter # Bowel Movements 1 0 ABP, PAP, CO, CI - Last Documented Arterial Blood Pressure 97/69 - Exam GENERAL DESCRIPTION: An elderly female up in the chair in no distress RESPIRATORY SYSTEM: Unlabored breathing , decreased breath sounds at bases HEART: S1 S2 regular rate and rhythm , ABDOMEN: Soft , no tenderness EXTREMITIES: Bilateral lower extremity wounds are currently dressed no drainage on the dressing - Labs CBC & Chem 7: 10/30/21 12:41 10/30/21 03:43 Labs: Abnormal Lab Results - Last 24 Hours (Table) 10/31/21 10/31/21 11/01/21 Range/Units 11:42 20:38 07:24 POC Glucose (mg/dL) 112 H 141 H 171 H (75-99) mg/dL Assessment and Plan (1) Cellulitis Current Visit: Yes Status: Acute Code(s): L03.90 - CELLULITIS, UNSPECIFIED SNOMED Code(s): 862489304 Plan: 1patient with bilateral lower extremity nonhealing wound and cellulitis seems to be more of a venous stasis ulcers with secondary cellulitis and likely from gram-positive skin pb less likely gram-negative infection in this patient has not seen a physician for 20 years less likelihood of a MRSA infection. 2 patient is status post surgical debridement and deep culture which are currently growing multiple pathogens including Pseudomonas strep 3patient did have acute GI bleed with evidence of perforated and bleeding duodenal ulcer requiring laparotomy, patient has showed overall clinical improvement, the patient did have a normal white count is 6 was negative, has received more than 2 weeks of adequate IV antibiotic therapy , patient is currently on oral Cipro and Flagyl and Keflex to continue for another 5 days on discharge, local wound care to continue as ordered Time with Patient: Less than 30
--- NOTE | 2021-11-01 15:46 | P.PN ---
Subjective Progress Note Date: 11/01/21 Principal diagnosis: perforated duodenal ulcer Patient denies any acute complaints. No acute issues overnight. I discussed with manager case management who said that will not have a unvaccinated bed available until Thursday Objective - Vital Signs Vital signs: Vital Signs Temp 97.4 F L 11/01/21 14:00 Pulse 95 11/01/21 14:00 Resp 17 11/01/21 14:00 BP 95/59 11/01/21 14:00 Pulse Ox 97 11/01/21 14:00 Intake & Output 10/31/21 11/01/21 11/01/21 18:59 06:59 18:59 Intake Total 1080 200 Output Total 800 200 2 Balance 280 0 -2 Weight 90 kg Intake: Oral 1080 200 Output: Urine 800 200 Stool 2 Other: Voiding Method External Catheter External Catheter # Bowel Movements 1 0 ABP, PAP, CO, CI - Last Documented Arterial Blood Pressure 97/69 - Exam General examination - Alert and Oriented 3 in NAD Heart - + S1S2 no murmurs Lungs - Clear to auscultation Abdomen soft NT ND +ve BS 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 Psych - mildly confused - Labs CBC & Chem 7: 10/30/21 12:41 10/30/21 03:43 Labs: Abnormal Lab Results - Last 24 Hours (Table) 10/31/21 11/01/21 11/01/21 Range/Units 20:38 07:24 11:57 POC Glucose (mg/dL) 141 H 171 H 118 H (75-99) mg/dL Microbiology - Last 24 Hours (Table) 10/13/21 14:20 Fungal Culture - Preliminary Leg - Right Assessment and Plan Assessment: Acute GI blood loss anemia Perforated duodenal ulcer status post laparotomy -Diet as per general surgery -Outpatient antibody recommendations from ID -Resume Protonix twice a day -Hemoglobin stable Acute hypoxic respiratory failure Acute on chronic systolic heart failure with EF of 40-45% -Patient transition to oral Lasix -She appears euvolemic -Status post extubation on 10/22/2021 -Patient currently nasal cannula and is satting well Large subacute right cerebral hemispheric infarct -Surgery has cleared the patient for dual antiplatelet medication -Patient started on aspirin. Per neurology okay to hold Plavix in the setting of acute blood loss anemia -Continue Lipitor - 2-D echocardiogram revealed inferoseptal hypokinesis or aortic sclerosis with mild aortic stenosis and mild mitral and mild to moderate tricuspid regurgitation. EF is 40-45%. Grade 1 diastolic dysfunction. Mid to basal inferoseptal is hypokinetic. -Carotid Doppler revealed no significant common or internal carotid artery steno sis. Bilateral lower extremity nonhealing wound and cellulitis likely due to venous stasis ulcer -Status post surgical debridement -Deep cultures grew multiple pathogens including Pseudomonas -Antibiotics per ID -Continue with local wound care Acute UTI -Resume antibiotics per ID Encephalopathy likely toxic metabolic and ischemic -Patient is AAO 3 and is following commands -At time patient can speak incoherently. -Anticipated patient went to status will improve gradually over time -Discontinue all sedating medications New-onset diabetes mellitus type 2 -Hemoglobin A1c is 8.0 -Sliding-scale insulin -We'll discharge the patient on metformin History of smoking History of CVA Cardiomyopathy with LV dysfunction: Patient euvolemic. On Lasix Pt is Full Code DVT PPx on hold due to bleed Patient medically stable for discharge. Awaiting for prior authorization. Also unvaccinated bed well not be available until Thursday
--- NOTE | 2021-11-01 15:46 | PN ---
PROGRESS NOTE This 66-year-old female patient had bilateral lower extremity chronic wounds. The patient went for extensive debridement and local wound care and IV antibiotic. We have been changing the dressing every 48 hours with Aquacel Silver. The wound is granulating. Plan is for the patient to go to [facility] on Thursday and then will follow in the wound clinic. Dressing should be changed every 48 hours with Aquacel Silver. MMNEREIDAL / IJN: [id number] /
[2021-11-01 16:48] LABS: Glucose,Whole Blood 83 mg/dL (75-99)
[2021-11-01 22:06] LABS: Glucose,Whole Blood 137 mg/dL (75-99)
[2021-11-02 07:17] LABS: Glucose,Whole Blood 109 mg/dL (75-99)
[2021-11-02] MEDS: PANTOPRAZOLE 40 MG TABLET PO SCH ×2 (08:28→17:02)
[2021-11-02] MEDS: metroNIDAZOLE 500 MG TAB PO SCH ×3 (08:28→20:51)
[2021-11-02] MEDS: CIPROFLOXACIN HCL 500 MG TAB PO SCH ×2 (08:28→20:51)
[2021-11-02] MEDS: CEPHALEXIN 500 MG CAP PO SCH ×2 (08:28→20:51)
[2021-11-02] MEDS: INSULIN ASPART (NovoLOG) 100 UNIT/ML VIAL SQ SCH ×4 (08:28→20:48)
[2021-11-02] MEDS: GABAPENTIN 100 MG CAP PO SCH ×3 (08:28→20:51)
[2021-11-02] MEDS: ATORVASTATIN 40 MG TAB PO SCH (08:28)
[2021-11-02] MEDS: FUROSEMIDE 20 MG TAB PO SCH (08:28)
[2021-11-02] MEDS: ASPIRIN 81 MG PO SCH (08:28)
[2021-11-02] MEDS: ENOXAPARIN 40 MG/0.4 ML SYRINGE SQ SCH (08:28)
[2021-11-02 11:35] LABS: Glucose,Whole Blood 101 mg/dL (75-99)
--- NOTE | 2021-11-02 11:56 | P.PN ---
Subjective Progress Note Date: 11/02/21 Principal diagnosis: perforated duodenal ulcer Patient states that she is eating and drinking well. She stated that she is having good bowel movements. No acute issues overnight. Objective - Vital Signs Vital signs: Vital Signs Temp 97.7 F 11/02/21 08:00 Pulse 83 11/02/21 08:00 Resp 18 11/02/21 08:00 BP 107/65 11/02/21 08:00 Pulse Ox 93 L 11/02/21 08:00 Intake & Output 11/01/21 11/02/21 11/02/21 18:59 06:59 18:59 Intake Total 720 Output Total 302 300 Balance 418 -300 Weight 90 kg Intake: Oral 720 Output: Urine 300 300 Stool 2 Other: Voiding Method External Catheter External Catheter External Catheter # Bowel Movements 0 ABP, PAP, CO, CI - Last Documented Arterial Blood Pressure 97/69 - Exam General examination - Alert and Oriented 3 in NAD Heart - + S1S2 no murmurs Lungs - Clear to auscultation Abdomen soft NT ND +ve BS 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 Psych - mildly confused - Labs CBC & Chem 7: 10/30/21 12:41 10/30/21 03:43 Labs: Abnormal Lab Results - Last 24 Hours (Table) 11/01/21 11/01/21 11/02/21 Range/Units 11:57 22:04 07:16 POC Glucose (mg/dL) 118 H 137 H 109 H (75-99) mg/dL 11/02/21 Range/Units 11:33 POC Glucose (mg/dL) 101 H (75-99) mg/dL Microbiology - Last 24 Hours (Table) 10/13/21 14:20 Fungal Culture - Preliminary Leg - Right Assessment and Plan Assessment: Acute GI blood loss anemia Perforated duodenal ulcer status post laparotomy -Diet as per general surgery -Outpatient antibody recommendations from ID -Resume Protonix twice a day -Hemoglobin stable Acute hypoxic respiratory failure Acute on chronic systolic heart failure with EF of 40-45% -Patient transition to oral Lasix -She appears euvolemic -Status post extubation on 10/22/2021 -Patient currently nasal cannula and is satting well Large subacute right cerebral hemispheric infarct -Surgery has cleared the patient for dual antiplatelet medication -Patient started on aspirin. Per neurology okay to hold Plavix in the setting of acute blood loss anemia -Continue Lipitor - 2-D echocardiogram revealed inferoseptal hypokinesis or aortic sclerosis with mild aortic stenosis and mild mitral and mild to moderate tricuspid regurgitation. EF is 40-45%. Grade 1 diastolic dysfunction. Mid to basal inferoseptal is hypokinetic. -Carotid Doppler revealed no significant common or internal carotid artery stenosis. Bilateral lower extremity nonhealing wound and cellulitis likely due to venous stasis ulcer -Status post surgical debridement -Deep cultures grew multiple pathogens including Pseudomonas -Antibiotics per ID -Continue with local wound care Acute UTI -Resume antibiotics per ID Encephalopathy likely toxic metabolic and ischemic -Patient is AAO 3 and is following commands -At time patient can speak incoherently. -Anticipated patient went to status will improve gradually over time -Discontinue all sedating medications New-onset diabetes mellitus type 2 -Hemoglobin A1c is 8.0 -Sliding-scale insulin -We'll discharge the patient on metformin History of smoking History of CVA Cardiomyopathy with LV dysfunction: Patient euvolemic. On Lasix Pt is Full Code DVT PPx on hold due to bleed Patient medically stable for discharge. Awaiting for prior authorization. Also unvaccinated bed well not be available until Thursday
--- NOTE | 2021-11-02 13:39 | P.PN ---
Subjective Progress Note Date: 11/02/21 CHIEF COMPLAINT: Perforated duodenal ulcer HISTORY OF PRESENT ILLNESS: The patient is a 58-year-old female status post repair of a duodenal ulcer. She is tolerating diet. Has been his bedside. He reports she is eating [employer] fries and hamburgers. Patient denies any increased abdominal pain or nausea and vomiting. ROS: No reports of nausea and vomiting. Having bowel movements. No fevers or chills. No new chest pain. No productive sputum PHYSICAL EXAM: VITAL SIGNS: Reviewed CONSTITUTIONAL: Well developed and in no acute distress. EYES: Conjuctivae without sclera icterus. Extraocular movements grossly intact. HEAD, EARS, NOSE, THROAT: Moist buccal mucosa. Head is atraumatic, normoc ephalic. Hears conversational speech. No nasal drainage. RESPIRATORY: Non-labored respirations and equal bilateral excursions. CARDIOVASCULAR: Palpable 2+ radial pulses. ABDOMEN: No peritonitis. MUSCULOSKELETAL: No gross deformity of the lower extremities noted. No clubbing. No cyanosis. SKIN: Good skin turgor. Well perfused. NEUROLOGIC: Cranial nerves II through XII grossly intact. No focal or lateralizing signs. PSYCH: Somnolent but sitting in chair at bedside. CLINICAL LABS: Reviewed. Blood sugar glucose is 83-171 ASSESSMENT: 1. Perforated duodenal ulcer PLAN: 1. Pending discharge to rehab 2. Diet as tolerated Objective - Vital Signs Vital signs: Vital Signs Temp 97.7 F 11/02/21 08:00 Pulse 83 11/02/21 08:00 Resp 18 11/02/21 08:00 BP 107/65 11/02/21 08:00 Pulse Ox 93 L 11/02/21 08:00 Intake & Output 11/01/21 11/02/21 11/02/21 18:59 06:59 18:59 Intake Total 720 Output Total 302 300 Balance 418 -300 Weight 90 kg Intake: Oral 720 Output: Urine 300 300 Stool 2 Other: Voiding Method External Catheter External Catheter # Bowel Movements 0 ABP, PAP, CO, CI - Last Documented Arterial Blood Pressure 97/69 - Labs CBC & Chem 7: 10/30/21 12:41 10/30/21 03:43 Labs: Abnormal Lab Results - Last 24 Hours (Table) 11/01/21 11/01/21 11/02/21 Range/Units 11:57 22:04 07:16 POC Glucose (mg/dL) 118 H 137 H 109 H (75-99) mg/dL Microbiology - Last 24 Hours (Table) 10/13/21 14:20 Fungal Culture - Preliminary Leg - Right
[2021-11-02] MEDS: HYDROcodone/APAP 5-325MG 1 EACH TAB PO PRN ×2 (14:24→20:29)
[2021-11-02 16:46] LABS: Glucose,Whole Blood 147 mg/dL (75-99)
[2021-11-02 20:46] LABS: Glucose,Whole Blood 118 mg/dL (75-99)
[2021-11-03] MEDS: HYDROcodone/APAP 5-325MG 1 EACH TAB PO PRN ×4 (03:17→22:21)
[2021-11-03] MEDS: INSULIN ASPART (NovoLOG) 100 UNIT/ML VIAL SQ SCH ×4 (06:56→19:53)
[2021-11-03 06:57] LABS: Glucose,Whole Blood 92 mg/dL (75-99)
[2021-11-03] MEDS: metroNIDAZOLE 500 MG TAB PO SCH ×3 (07:08→19:52)
[2021-11-03] MEDS: GABAPENTIN 100 MG CAP PO SCH ×3 (07:08→19:52)
[2021-11-03] MEDS: ENOXAPARIN 40 MG/0.4 ML SYRINGE SQ SCH (07:08)
[2021-11-03] MEDS: CEPHALEXIN 500 MG CAP PO SCH ×2 (07:08→19:52)
[2021-11-03] MEDS: FUROSEMIDE 20 MG TAB PO SCH (07:08)
[2021-11-03] MEDS: CIPROFLOXACIN HCL 500 MG TAB PO SCH ×2 (07:08→19:53)
[2021-11-03] MEDS: ASPIRIN 81 MG PO SCH (07:09)
[2021-11-03] MEDS: PANTOPRAZOLE 40 MG TABLET PO SCH ×2 (07:09→16:42)
[2021-11-03] MEDS: ATORVASTATIN 40 MG TAB PO SCH (07:09)
[2021-11-03 11:45] LABS: Glucose,Whole Blood 123 mg/dL (75-99)
--- NOTE | 2021-11-03 12:50 | P.PN ---
Subjective Progress Note Date: 11/03/21 Principal diagnosis: perforated duodenal ulcer Patient states that she walked this morning and she is able to walk to the bathroom and had a bowel movement. She states that her abdominal pain is much better. 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 Psych - mildly confused - Labs CBC & Chem 7: 10/30/21 12:41 10/30/21 03:43 Labs: Abnormal Lab Results - Last 24 Hours (Table) 11/02/21 11/02/21 11/03/21 Range/Units 16:45 20:44 11:44 POC Glucose (mg/dL) 147 H 118 H 123 H (75-99) mg/dL Assessment and Plan Assessment: Acute GI blood loss anemia Perforated duodenal ulcer status post laparotomy -Diet as per general surgery -Outpatient antibody recommendations from ID -Resume Protonix twice a day -Hemoglobin stable Acute hypoxic respiratory failure Acute on chronic systolic heart failure with EF of 40-45% -Patient transition to oral Lasix -She appears euvolemic -Status post extubation on 10/22/2021 -Patient currently nasal cannula and is satting well Large subacute right cerebral hemispheric infarct -Surgery has cleared the patient for dual antiplatelet medication -Patient started on aspirin. Per neurology okay to hold Plavix in the setting of acute blood loss anemia -Continue Lipitor - 2-D echocardiogram revealed inferoseptal hypokinesis or aortic sclerosis with mild aortic stenosis and mild mitral and mild to moderate tricuspid r egurgitation. EF is 40-45%. Grade 1 diastolic dysfunction. Mid to basal inferoseptal is hypokinetic. -Carotid Doppler revealed no significant common or internal carotid artery stenosis. Bilateral lower extremity nonhealing wound and cellulitis likely due to venous stasis ulcer -Status post surgical debridement -Deep cultures grew multiple pathogens including Pseudomonas -Antibiotics per ID -Continue with local wound care Acute UTI -Resume antibiotics per ID Encephalopathy likely toxic metabolic and ischemic -Patient is AAO 3 and is following commands -At time patient can speak incoherently. -Anticipated patient went to status will improve gradually over time -Discontinue all sedating medications New-onset diabetes mellitus type 2 -Hemoglobin A1c is 8.0 -Sliding-scale insulin -We'll discharge the patient on metformin History of smoking History of CVA Cardiomyopathy with LV dysfunction: Patient euvolemic. On Lasix Pt is Full Code DVT PPx on hold due to bleed Patient medically stable for discharge. Awaiting for prior authorization. Also unvaccinated bed well not be available until Thursday
--- NOTE | 2021-11-03 15:06 | P.PN ---
Subjective Progress Note Date: 11/03/21 CHIEF COMPLAINT: Perforated duodenal ulcer HISTORY OF PRESENT ILLNESS: The patient is a 58-year-old female status post repair of a duodenal ulcer. No reports of abdominal pain. She is tolerating diet. ROS: No reports of nausea and vomiting. Having bowel movements. No fevers or chills. No new chest pain. No productive sputum PHYSICAL EXAM: VITAL SIGNS: Reviewed CONSTITUTIONAL: Well developed and in no acute distress. EYES: Conjuctivae without sclera icterus. Extraocular movements grossly intact. HEAD, EARS, NOSE, THROAT: Moist buccal mucosa. Head is atraumatic, normocephalic. Hears conversational speech. No nasal drainage. RESPIRATORY: Non-labored respirations and equal bilateral excursions. CARDIOVASCULAR: Palpable 2+ radial pulses. ABDOMEN: No peritonitis. MUSCULOSKELETAL: No gross deformity of the lower extremities noted. No clubbing. No cyanosis. SKIN: Good skin turgor. Well perfused. NEUROLOGIC: Cranial nerves II through XII grossly intact. No focal or lateraliz ing signs. PSYCH: Somnolent but sitting in chair at bedside. CLINICAL LABS: Reviewed. Blood sugar glucose 92-123 ASSESSMENT: 1. Perforated duodenal ulcer PLAN: 1. Stable for discharge to rehab Objective - Vital Signs Vital signs: Vital Signs Temp 97.8 F 11/03/21 07:30 Pulse 74 11/03/21 07:30 Resp 17 11/03/21 07:30 BP 110/68 11/03/21 07:30 Pulse Ox 99 11/03/21 07:30 Intake & Output 11/02/21 11/03/21 11/03/21 18:59 06:59 18:59 Intake Total 200 Balance 200 Intake: Oral 200 Other: Voiding Method External Catheter External Catheter # Voids 4 # Bowel Movements 4 ABP, PAP, CO, CI - Last Documented Arterial Blood Pressure 97/69 - Labs CBC & Chem 7: 10/30/21 12:41 10/30/21 03:43 Labs: Abnormal Lab Results - Last 24 Hours (Table) 11/02/21 11/02/21 11/03/21 Range/Units 16:45 20:44 11:44 POC Glucose (mg/dL) 147 H 118 H 123 H (75-99) mg/dL
[2021-11-03 16:55] LABS: Glucose,Whole Blood 109 mg/dL (75-99)
[2021-11-03 19:53] LABS: Glucose,Whole Blood 133 mg/dL (75-99)
[2021-11-04] MEDS ORDERED: HYDROcodone/APAP 5-325MG 1 EACH TAB ONE (05:25)
[2021-11-04 06:46] LABS: Glucose,Whole Blood 105 mg/dL (75-99)
[2021-11-04] MEDS: INSULIN ASPART (NovoLOG) 100 UNIT/ML VIAL SQ SCH ×4 (06:58→19:56)
[2021-11-04] MEDS: ENOXAPARIN 40 MG/0.4 ML SYRINGE SQ SCH (08:49)
[2021-11-04] MEDS: CIPROFLOXACIN HCL 500 MG TAB PO SCH ×2 (08:49→22:46)
[2021-11-04] MEDS: PANTOPRAZOLE 40 MG TABLET PO SCH ×2 (08:49→19:52)
[2021-11-04] MEDS: ATORVASTATIN 40 MG TAB PO SCH (08:50)
[2021-11-04] MEDS: FUROSEMIDE 20 MG TAB PO SCH (08:50)
[2021-11-04] MEDS: CEPHALEXIN 500 MG CAP PO SCH ×2 (08:50→22:46)
[2021-11-04] MEDS: metroNIDAZOLE 500 MG TAB PO SCH ×3 (08:50→22:46)
[2021-11-04] MEDS: ASPIRIN 81 MG PO SCH (08:50)
[2021-11-04] MEDS: GABAPENTIN 100 MG CAP PO SCH ×3 (08:50→22:46)
[2021-11-04 11:38] LABS: Glucose,Whole Blood 128 mg/dL (75-99)
--- NOTE | 2021-11-04 12:33 | P.PN ---
Subjective Progress Note Date: 11/04/21 CHIEF COMPLAINT: Duodenal ulcer HISTORY OF PRESENT ILLNESS: Patient is status post Exploratory laparotomy with repair of perforated duodenal ulcer and control of bleeding, pyloroplasty on 10/16/21. Patient is sitting up at bedside chair. Patient reports some abdominal pain. But it is improving. She is having bowel movements and flatus. Tolerating diet. She is awaiting ECF placement. Afebrile PHYSICAL EXAM: VITAL SIGNS: Reviewed. GENERAL: Well-developed in no acute distress. HEENT: No sclera icterus. Extraocular movements grossly intact. Moist buccal mucosa. Head is atraumatic, normocephalic. ABDOMEN: Soft. nondistended. Abdominal incision clean dry and intact. Small amount of serous drainage noted on dressing ASSESSMENT: 1. Duodenal ulcer with perforation and active bleeding status post Exploratory laparotomy with repair of perforated duodenal ulcer and control of bleeding, pyloroplasty. PLAN: -Patient can be discharged from surgical standpoint when medically stable -continue dysphagia chopped diet -Continue PPI -No NSAIDs -Antibiotics per ID service -Follow up with Dr. Soto in 1 week Physician Appeals Writer note has been reviewed by physician. Signing provider agrees with the documented findings, assessment, and plan of care. I have personally seen and examined the patient, reviewed the CONTROL SUPERVISOR /PAs history, exam and MDM and agree with the assessment and plan as written. Based on total visit time, I have performed more than 50% of the visit. As above: Patient doing well today. Waiting for ECF bed. Tolerating diet. Continue antiacids. Objective - Vital Signs Vital signs: Vital Signs Temp 97.5 F L 11/04/21 07:09 Pulse 67 11/04/21 08:00 Resp 17 11/04/21 08:00 BP 91/56 11/04/21 07:09 Pulse Ox 98 11/04/21 08:42 FiO2 30 10/23/21 16:00 Intake & Output 11/03/21 11/04/21 11/04/21 18:59 06:59 18:59 Other: Voiding Method External Catheter # Voids 2 2 # Bowel Movements 1 ABP, PAP, CO, CI - Last Documented Arterial Blood Pressure 97/69 - Labs CBC & Chem 7: 10/30/21 12:41 10/30/21 03:43 Labs: Abnormal Lab Results - Last 24 Hours (Table) 11/03/21 11/03/21 11/04/21 Range/Units 16:53 19:51 06:44 POC Glucose (mg/dL) 109 H 133 H 105 H (75-99) mg/dL 11/04/21 Range/Units 11:35 POC Glucose (mg/dL) 128 H (75-99) mg/dL
--- NOTE | 2021-11-04 13:45 | P.PN ---
Subjective Progress Note Date: 11/04/21 Principal diagnosis: perforated duodenal ulcer Patient denies any acute complaints. No acute issues overnight. Patient's mental status has been stable. She does have some confusion likely due to her recent stroke. 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 Psych - mildly confused - Labs CBC & Chem 7: 10/30/21 12:41 10/30/21 03:43 Labs: Abnormal Lab Results - Last 24 Hours (Table) 11/03/21 11/03/21 11/04/21 Range/Units 16:53 19:51 06:44 POC Glucose (mg/dL) 109 H 133 H 105 H (75-99) mg/dL 11/04/21 Range/Units 11:35 POC Glucose (mg/dL) 128 H (75-99) mg/dL Assessment and Plan Assessment: Acute GI blood loss anemia Perforated duodenal ulcer status post laparotomy -Diet as per general surgery -Outpatient antibody recommendations from ID -Resume Protonix twice a day -Hemoglobin stable Acute hypoxic respiratory failure Acute on chronic systolic heart failure with EF of 40-45% -Patient transition to oral Lasix -She appears euvolemic -Status post extubation on 10/22/2021 -Patient currently nasal cannula and is satting well Large subacute right cerebral hemispheric infarct -Surgery has cleared the patient for dual antiplatelet medication -Patient started on aspirin. Per neurology okay to hold Plavix in the setting of acute blood loss anemia -Continue Lipitor - 2-D echocardiogram revealed inferoseptal hypokinesis or aortic sclerosis with mild aortic stenosis and mild mitral and mild to moderate tricuspid regurgitation. EF is 40-45%. Grade 1 diastolic dysfunction. Mid to basal inferoseptal is hypokinetic. -Carotid Doppler revealed no significant common or internal carotid artery stenosis. Bilateral lower extremity nonhealing wound and cellulitis likely due to venous stasis ulcer -Status post surgical debridement -Deep cultures grew multiple pathogens including Pseudomonas -Antibiotics per ID -Continue with local wound care Acute UTI -Resume antibiotics per ID Encephalopathy likely toxic metabolic and ischemic -Patient is AAO 3 and is following commands -At time patient can speak incoherently. -Anticipated patient went to status will improve gradually over time -Discontinue all sedating medications New-onset diabetes mellitus type 2 -Hemoglobin A1c is 8.0 -Sliding-scale insulin -We'll discharge the patient on metformin History of smoking History of CVA Cardiomyopathy with LV dysfunction: Patient euvolemic. On Lasix Pt is Full Code DVT PPx on hold due to bleed Patient medically stable for discharge. Awaiting for prior authorization.
[2021-11-04] MEDS: HYDROcodone/APAP 5-325MG 1 EACH TAB PO PRN ×2 (15:22→21:20)
[2021-11-04 16:28] LABS: Glucose,Whole Blood 173 mg/dL (75-99)
[2021-11-04 19:50] LABS: Glucose,Whole Blood 113 mg/dL (75-99)
--- NOTE | 2021-11-05 07:06 | P.PN ---
Subjective Progress Note Date: 11/02/21 Principal diagnosis: Bilateral lower extremity venous stasis ulcer and cellulitis Patient is a 66-year-old female who has not seen a physician in 20 years presented to the hospital with significant bilateral lower extremity necrotic wound and secondary cellulitis in this patient who is status post surgical debridement of these wounds in the OR on 10/13/2021. Patient did have a GI bleed could not be controlled through the EGD patient subsequently taken to the OR and status post laparotomy for a bleeding and perforated duodenal ulcer disease on 10/16/2021 On today's evaluation that is 11/02/2021, the patient remains to be afebrile, the patient is breathing comfortably on nasal cannula oxygen, patient denies chest pain shortness of breath or cough, the patient is complaining of some abdominal pain today but no nausea vomiting or diarrhea , the patient denies p ain to his lower extremity wounds Objective - Vital Signs Vital signs: Vital Signs Temp 97.9 F 11/02/21 19:34 Pulse 83 11/02/21 08:00 Resp 18 11/02/21 19:34 BP 91/56 11/02/21 19:34 Pulse Ox 97 11/02/21 19:34 Intake & Output 11/02/21 11/02/21 11/03/21 06:59 18:59 06:59 Output Total 300 Balance -300 Output: Urine 300 Other: Voiding Method External Catheter External Catheter External Catheter # Voids 4 # Bowel Movements 0 4 ABP, PAP, CO, CI - Last Documented Arterial Blood Pressure 97/69 - Exam GENERAL DESCRIPTION: An elderly female up in the chair in no distress RESPIRATORY SYSTEM: Unlabored breathing , decreased breath sounds at bases HEART: S1 S2 regular rate and rhythm , ABDOMEN: Soft , no tenderness EXTREMITIES: Bilateral lower extremity wounds are currently dressed no drainage on the dressing - Labs CBC & Chem 7: 10/30/21 12:41 10/30/21 03:43 Labs: Abnormal Lab Results - Last 24 Hours (Table) 11/01/21 11/02/21 11/02/21 Range/Units 22:04 07:16 11:33 POC Glucose (mg/dL) 137 H 109 H 101 H (75-99) mg/dL 11/02/21 11/02/21 Range/Units 16:45 20:44 POC Glucose (mg/dL) 147 H 118 H (75-99) mg/dL Assessment and Plan (1) Cellulitis Current Visit: Yes Status: Acute Code(s): L03.90 - CELLULITIS, UNSPECIFIED SNOMED Code(s): 618124514 Plan: 1patient with bilateral lower extremity nonhealing wound and cellulitis seems to be more of a venous stasis ulcers with secondary cellulitis and likely from gram-positive skin pb less likely gram-negative infection in this patient has not seen a physician for 20 years less likelihood of a MRSA infection. 2 patient is status post surgical debridement and deep culture which are currently growing multiple pathogens including Pseudomonas strep 3patient did have acute GI bleed with evidence of perforated and bleeding duodenal ulcer requiring laparotomy, patient has showed overall clinical improvement, the patient did have a normal white count patient has received more than 2 weeks of adequate IV antibiotic therapy , patient is currently on oral Cipro and Flagyl and Keflex to continue for another few days, local wound care to continue as ordered Time with Patient: Less than 30
--- NOTE | 2021-11-05 07:08 | P.PN ---
Subjective Progress Note Date: 11/03/21 Principal diagnosis: Bilateral lower extremity venous stasis ulcer and cellulitis Patient is a 66-year-old female who has not seen a physician in 20 years presented to the hospital with significant bilateral lower extremity necrotic wound and secondary cellulitis in this patient who is status post surgical debridement of these wounds in the OR on 10/13/2021. Patient did have a GI bleed could not be controlled through the EGD patient subsequently taken to the OR and status post laparotomy for a bleeding and perforated duodenal ulcer disease on 10/16/2021 On today's evaluation that is 11/03/2021, the patient continues to be afebrile, the patient is breathing comfortably on nasal cannula oxygen, patient denies chest pain shortness of breath or cough, the patient denies abdominal pain today and no nausea vomiting or diarrhea , the patient denies pain to his lower extremity wounds Objective - Vital Signs Vital signs: Vital Signs Temp 98.2 F 11/03/21 14:00 Pulse 85 11/03/21 14:00 Resp 18 11/03/21 14:00 BP 128/78 11/03/21 14:00 Pulse Ox 98 11/03/21 14:00 Intake & Output 11/02/21 11/03/21 11/03/21 18:59 06:59 18:59 Intake Total 200 Balance 200 Intake: Oral 200 Other: Voiding Method External Catheter External Catheter # Voids 4 # Bowel Movements 4 ABP, PAP, CO, CI - Last Documented Arterial Blood Pressure 97/69 - Exam GENERAL DESCRIPTION: An elderly female up in the chair in no distress RESPIRATORY SYSTEM: Unlabored breathing , decreased breath sounds at bases HEART: S1 S2 regular rate and rhythm , ABDOMEN: Soft , no tenderness EXTREMITIES: Bilateral lower extremity wounds are currently dressed no drainage on the dressing - Labs CBC & Chem 7: 10/30/21 12:41 10/30/21 03:43 Labs: Abnormal Lab Results - Last 24 Hours (Table) 11/02/21 11/02/21 11/03/21 Range/Units 16:45 20:44 11:44 POC Glucose (mg/dL) 147 H 118 H 123 H (75-99) mg/dL Assessment and Plan (1) Cellulitis Current Visit: Yes Status: Acute Code(s): L03.90 - CELLULITIS, UNSPECIFIED SNOMED Code(s): 115987782 Plan: 1patient with bilateral lower extremity nonhealing wound and cellulitis seems to be more of a venous stasis ulcers with secondary cellulitis and likely from gram-positive skin pb less likely gram-negative infection in this patient has not seen a physician for 20 years less likelihood of a MRSA infection. 2 patient is status post surgical debridement and deep culture which are currently growing multiple pathogens including Pseudomonas strep 3patient did have acute GI bleed with evidence of perforated and bleeding duodenal ulcer requiring laparotomy, patient has shown overall clinical improvement, the patient did have a normal white count patient has received more than 2 weeks of adequate IV antibiotic therapy , patient to continue with oral C ipro and Flagyl and Keflex and monitor clinical course closely, local wound care to continue as ordered Time with Patient: Less than 30
--- NOTE | 2021-11-05 07:09 | P.PN ---
Subjective Progress Note Date: 11/04/21 Principal diagnosis: Bilateral lower extremity venous stasis ulcer and cellulitis Patient is a 66-year-old female who has not seen a physician in 20 years presented to the hospital with significant bilateral lower extremity necrotic wound and secondary cellulitis in this patient who is status post surgical debridement of these wounds in the OR on 10/13/2021. Patient did have a GI bleed could not be controlled through the EGD patient subsequently taken to the OR and status post laparotomy for a bleeding and perforated duodenal ulcer disease on 10/16/2021 On today's evaluation that is 11/04/2021, the patient denies any fever or any chills, the patient is breathing comfortably on nasal cannula oxygen, no chest pain no cough denies any nausea no vomiting has been tolerating her diet and no abdominal pain no diarrhea Objective - Vital Signs Vital signs: Vital Signs Temp 97.5 F L 11/04/21 07:09 Pulse 67 11/04/21 08:00 Resp 17 11/04/21 08:00 BP 91/56 11/04/21 07:09 Pulse Ox 98 11/04/21 08:42 FiO2 30 10/23/21 16:00 Intake & Output 11/03/21 11/04/21 11/04/21 18:59 06:59 18:59 Other: Voiding Method External Catheter # Voids 2 2 # Bowel Movements 1 ABP, PAP, CO, CI - Last Documented Arterial Blood Pressure 97/69 - Exam GENERAL DESCRIPTION: An elderly female up in the chair in no distress RESPIRATORY SYSTEM: Unlabored breathing , decreased breath sounds at bases HEART: S1 S2 regular rate and rhythm , ABDOMEN: Soft , no tenderness EXTREMITIES: Bilateral lower extremity wounds are currently dressed no drainage on the dressing - Labs CBC & Chem 7: 10/30/21 12:41 10/30/21 03:43 Labs: Abnormal Lab Results - Last 24 Hours (Table) 11/03/21 11/03/21 11/04/21 Range/Units 16:53 19:51 06:44 POC Glucose (mg/dL) 109 H 133 H 105 H (75-99) mg/dL 11/04/21 Range/Units 11:35 POC Glucose (mg/dL) 128 H (75-99) mg/dL Assessment and Plan (1) Cellulitis Current Visit: Yes Status: Acute Code(s): L03.90 - CELLULITIS, UNSPECIFIED SNOMED Code(s): 877695852 Plan: 1patient with bilateral lower extremity nonhealing wound and cellulitis seems to be more of a venous stasis ulcers with secondary cellulitis and likely from gram-positive skin pb less likely gram-negative infection in this patient has not seen a physician for 20 years less likelihood of a MRSA infection. 2 patient is status post surgical debridement and deep culture which are currently growing multiple pathogens including Pseudomonas strep 3patient did have acute GI bleed with evidence of perforated and bleeding duodenal ulcer requiring laparotomy, patient has shown overall clinical improvement, the patient did have a normal white count patient has received more than 2 weeks of adequate IV antibiotic therapy , patient to continue with oral Cipro and Flagyl and Keflex and can be safely discontinued after completion of 7 day course Time with Patient: Less than 30
[2021-11-05 07:17] LABS: Glucose,Whole Blood 103 mg/dL (75-99)
[2021-11-05] MEDS: INSULIN ASPART (NovoLOG) 100 UNIT/ML VIAL SQ SCH ×4 (07:17→20:56)
[2021-11-05] MEDS: FUROSEMIDE 20 MG TAB PO SCH (08:49)
[2021-11-05] MEDS: GABAPENTIN 100 MG CAP PO SCH ×3 (08:49→20:57)
[2021-11-05] MEDS: ATORVASTATIN 40 MG TAB PO SCH (08:49)
[2021-11-05] MEDS: CEPHALEXIN 500 MG CAP PO SCH ×2 (08:49→20:58)
[2021-11-05] MEDS: HYDROcodone/APAP 5-325MG 1 EACH TAB PO PRN ×3 (08:50→20:57)
[2021-11-05] MEDS: metroNIDAZOLE 500 MG TAB PO SCH ×3 (08:50→20:57)
[2021-11-05] MEDS: CIPROFLOXACIN HCL 500 MG TAB PO SCH ×2 (08:50→20:57)
[2021-11-05] MEDS: ENOXAPARIN 40 MG/0.4 ML SYRINGE SQ SCH (08:50)
[2021-11-05] MEDS: PANTOPRAZOLE 40 MG TABLET PO SCH ×2 (08:50→18:03)
[2021-11-05] MEDS: ASPIRIN 81 MG PO SCH (08:50)
[2021-11-05 11:18] LABS: Glucose,Whole Blood 100 mg/dL (75-99)
--- NOTE | 2021-11-05 13:01 | P.PN ---
Subjective Progress Note Date: 11/05/21 Up in chair, sleepy but does not appear to be in distress. Family at bedside. 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 Psych - mildly confused - Labs CBC & Chem 7: 10/30/21 12:41 10/30/21 03:43 Labs: Abnormal Lab Results - Last 24 Hours (Table) 11/04/21 11/04/21 11/05/21 Range/Units 16:26 19:49 07:16 POC Glucose (mg/dL) 173 H 113 H 103 H (75-99) mg/dL 11/05/21 Range/Units 10:58 POC Glucose (mg/dL) 100 H (75-99) mg/dL Assessment and Plan Plan: Acute GI blood loss anemia Perforated duodenal ulcer status post laparotomy -Diet as per general surgery -Outpatient antibody recommendations from ID Continue Protonix twice a day -Hemoglobin stable Acute hypoxic respiratory failure Acute on chronic systolic heart failure with EF of 40-45% -Patient transition to oral Lasix -She appears euvolemic -Status post extubation on 10/22/2021 -Patient currently nasal cannula Large subacute right cerebral hemispheric infarct -Surgery has cleared the patient for dual antiplatelet medication -Patient started on aspirin. Per neurology okay to hold Plavix in the setting of acute blood loss anemia -Continue Lipitor - 2-D echocardiogram revealed inferoseptal hypokinesis or aortic sclerosis with mild aortic stenosis and mild mitral and mild to moderate tricuspid regurgitation. EF is 40-45%. Grade 1 diastolic dysfunction. Mid to basal inferoseptal is hypokinetic. -Carotid Doppler revealed no significant common or internal carotid artery stenosis. Bilateral lower extremity nonhealing wound and cellulitis likely due to venous stasis ulcer -Status post surgical debridement -Deep cultures grew multiple pathogens including Pseudomonas -Antibiotics per ID -Continue with local wound care, continue supportive care Acute UTI -Resume antibiotics per ID Encephalopathy likely toxic metabolic and ischemic. -Anticipated patient went to status will improve gradually over time -Discontinue all sedating medications New-onset diabetes mellitus type 2 -Hemoglobin A1c is 8.0 -Sliding-scale insulin -We'll discharge the patient on metformin History of smoking History of CVA Cardiomyopathy with LV dysfunction: Patient euvolemic. On Lasix Pt is Full Code DVT PPx on hold due to bleed Patient medically stable for discharge. Awaiting for prior authorization. Appreciate input from case management/director social service Discussed treatment plan with the patient's daughter at bedside
[2021-11-05 15:54] LABS: Glucose,Whole Blood 70 mg/dL (75-99)
[2021-11-05 19:39] LABS: Glucose,Whole Blood 219 mg/dL (75-99)
[2021-11-06] MEDS: HYDROcodone/APAP 5-325MG 1 EACH TAB PO PRN ×2 (06:13→12:56)
[2021-11-06 06:53] LABS: Glucose,Whole Blood 120 mg/dL (75-99)
[2021-11-06] MEDS: INSULIN ASPART (NovoLOG) 100 UNIT/ML VIAL SQ SCH ×2 (07:05→12:12)
[2021-11-06] MEDS: ATORVASTATIN 40 MG TAB PO SCH (08:52)
[2021-11-06] MEDS: metroNIDAZOLE 500 MG TAB PO SCH ×2 (08:53→15:01)
[2021-11-06] MEDS: GABAPENTIN 100 MG CAP PO SCH ×2 (08:53→14:59)
[2021-11-06] MEDS: CIPROFLOXACIN HCL 500 MG TAB PO SCH (08:53)
[2021-11-06] MEDS: CEPHALEXIN 500 MG CAP PO SCH (08:53)
[2021-11-06] MEDS: FUROSEMIDE 20 MG TAB PO SCH (08:53)
[2021-11-06] MEDS: ASPIRIN 81 MG PO SCH (08:53)
[2021-11-06] MEDS: PANTOPRAZOLE 40 MG TABLET PO SCH (08:53)
[2021-11-06] MEDS: ENOXAPARIN 40 MG/0.4 ML SYRINGE SQ SCH (08:54)
[2021-11-06 09:09] LABS: Basophils # (A) 0.07 X 10*3/uL (0.00-0.10); Basophils % (A) 0.8 %; Eosinophils # (A) 0.05 X 10*3/uL (0.04-0.35); Eosinophils % (A) 0.6 %; HCT 26.3 % (37.2-46.3); HGB 7.7 g/dL (12.0-15.0); Immature Grans, Automated 1.4 %; Lymphocytes # (A) 1.28 X 10*3/uL (0.90-5.00); Lymphocytes % (A) 14.1 %; MCHC 29.3 g/dL (32.0-37.0); MCV 95.6 fL (80.0-97.0); Mean Platelet Volume 8.8 fL (9.5-12.2); Monocytes # (A) 1.25 X 10*3/uL (0.20-1.00); Monocytes % (A) 13.8 %; NRBC Per 100 WBC 0 /100 WBCS (0.0-0.0); Neutrophils # (A) 6.27 X 10*3/uL (1.80-7.70); Neutrophils % (A) 69.3 %; Platelet Count 558 X 10*3/uL (140-440); RBC 2.75 X 10*6/uL (4.10-5.20); RDW 16.8 % (11.5-14.5); WBC 9.05 X 10*3/uL (4.50-10.00)
[2021-11-06 10:04] LABS: African American GFR (CKD) 103.2 (60.0-200.0); Albumin 2.1 g/dL (3.8-4.9); Albumin/Globulin Ratio 0.7 (1.60-3.17); Anion Gap 9.2 mmol/L (10.00-18.00); BUN/Creat Ratio 16.86 Ratio (12.00-20.00); Blood Urea Nitrogen 11.8 mg/dL (9.0-27.0); Calcium 7.7 mg/dL (8.7-10.3); Carbon Dioxide 23.8 mmol/L (20.0-27.5); Potassium 3.8 mmol/L (3.5-5.5); Total Bilirubin 0.3 mg/dL (0.30-1.20); Total Protein 5.1 g/dL (6.2-8.2)
[2021-11-06 11:41] LABS: Glucose,Whole Blood 139 mg/dL (75-99)
--- NOTE | 2021-11-06 13:22 | P.DS ---
Providers Date of admission: 10/11/21 19:45 Expected date of discharge: 11/06/21 Attending physician: Brittaney Almazan MD Consults: 10/12/21 01:39 Consult Physician Routine Consulting Provider: Evans Jones Consult Reason/Comments: odd behavior Do you want consulting provider notified?: Yes, Notify in am Consult Physician Routine Consulting Provider: Arjun Andrew Consult Reason/Comments: subacute stroke Do you want consulting provider notified?: Yes, Notify in am 10/12/21 08:55 Consult Physician Routine Consulting Provider: Jam Penaloza Consult Reason/Comments: b/l le wounds Do you want consulting provider notified?: Yes 10/12/21 14:02 Consult Physician Routine Consulting Provider: Abel Mccall Consult Reason/Comments: cardiomyopathy Do you want consulting provider notified?: Yes 10/12/21 16:35 Consult Physician Routine Consulting Provider: Jono Cameron Consult Reason/Comments: bilateral leg wound , debridemnt and deep cultures Do you want consulting provider notified?: Yes 10/16/21 17:01 Consult Physician Routine Consulting Provider: Cliff Modi Consult Reason/Comments: Hypovolemic shock Do you want consulting provider notified?: Yes 10/16/21 19:23 Consult Physician Routine Consulting Provider: Dashawn Soto Consult Reason/Comments: GI bleed Do you want consulting provider notified?: Yes Primary care physician: Stated None Hospital Course: Patient is a 66-year-old female with no significant past medical history and has not follow-up with a doctor in over 20 years who presents with bilateral leg wounds. Patient had a very complicated hospital course. She was treated for the following medical conditions She was found to have acute blood loss anemia requiring multiple blood transfusions Her acute blood loss anemia was secondary to perforation of duodenal ulcer Patient had a laparotomy done and repair of the perforation by general surgery At the time of discharge patient's hemoglobin was stable. She was started on Protonix 40 mg twice a day. She was tolerating her diet well. She is cleared for discharge by general surgery. She was instructed to follow-up with general surgery outpatient. Patient also found to have a large subacute right cerebellar hemispheric infarct Due to the patient's acute blood loss anemia neurology recommended only aspirin on discharge Patient also started on Lipitor Patient was also in acute hypoxic respiratory failure Echocardiogram showed EF of 40-45% She was treated with diuretics. At the time of discharge patient was euvolemic and was transitioned to Lasix 20 mg daily Patient instructed to follow-up with cardiology Patient is being followed by infectious disease for lower extremity wounds She was treated broad-spectrum antibiotics At the time of discharge infectious disease recommended Cipro Flagyl and Keflex for 7 more days Patient will [facility] Patient also found to have new-onset diabetes mellitus with a hemoglobin A1c of 8.0 Patient was started on metformin At the time of discharge patient would at times speaking incoherently. However she was AAO 3 and was following commands. Patient deemed stable for discharge to long-term facility I spent 40 minutes coordinating this discharge. Gen: awake, alert HEENT: normocephalic, atraumatic, good hearing acuity, moist mucous membranes Resp: good air exchange, breathing comfortably with no accessory muscle use CVS: good distal perfusion x 4, GI: soft, NTTP, ND : no SPT, no CVAT, martinez catheter not present MSK: no pitting edema, no clubbing Neuro: non-focal, moving all extremities Psych: cooperative, euthymic mood Patient Condition at Discharge: Good Plan - Discharge Summary Discharge Rx Participant: Yes New Discharge Prescriptions: New Aspirin 81 mg PO DAILY Ciprofloxacin HCl [Cipro] 500 mg PO Q12HR 7 Days #14 tab metroNIDAZOLE [Flagyl] 500 mg PO TID 7 Days #21 tab Furosemide [Lasix] 20 mg PO DAILY tab Atorvastatin [Lipitor] 40 mg PO DAILY tab Pantoprazole [Protonix] 40 mg PO BID 30 Days #30 tab Cephalexin [Keflex] 500 mg PO Q12HR 7 Days #14 cap Gabapentin [Neurontin] 100 mg PO TID cap Acetaminophen Tab [Tylenol] 650 mg PO Q6HR PRN tab PRN Reason: Fever And/ Or Pain metFORMIN HCL 500 mg PO BID 30 Days #60 tablet Continue [place]-3 Fatty Acids/Fish Oil [Fish Oil 1,000 mg Softgel] 1 cap PO DAILY Multivitamins, Thera [Multivitamin (formulary)] 1 tab PO DAILY Flaxseed Oil 1,000 mg PO DAILY Vitamin A [Vitamin A (8,000 Units = 2,400 MCG)] 2,400 mcg PO DAILY Cholecalciferol [Vitamin D3 (125 Mcg = 5000 Iu)] 125 mcg PO DAILY Sennosides [Ex-Lax Chew] 15 mg PO DAILY PRN PRN Reason: Constipation Ascorbic Acid [Vitamin C] 1,000 mg PO DAILY Discontinued Ibuprofen [Motrin Ib] 600 mg PO Q8H PRN PRN Reason: Pain Or Fever > 100.5 Magnesium Oxide [Mag-Ox] 400 mg PO DAILY Naproxen Sodium [Aleve] 220 mg PO BID PRN PRN Reason: Pain Potassium Gluconate [Potassium Gluconate ER] 99 mg PO DAILY Discharge Medication List Ascorbic Acid [Vitamin C] 1,000 mg PO DAILY 10/11/21 [History] Cholecalciferol [Vitamin D3 (125 Mcg = 5000 Iu)] 125 mcg PO DAILY 10/11/21 [History] Flaxseed Oil 1,000 mg PO DAILY 10/11/21 [History] Multivitamins, Thera [Multivitamin (formulary)] 1 tab PO DAILY 10/11/21 [History] [place]-3 Fatty Acids/Fish Oil [Fish Oil 1,000 mg Softgel] 1 cap PO DAILY 10/11/21 [History] Sennosides [Ex-Lax Chew] 15 mg PO DAILY PRN 10/11/21 [History] Vitamin A [Vitamin A (8,000 Units = 2,400 MCG)] 2,400 mcg PO DAILY 10/11/21 [History] Acetaminophen Tab [Tylenol] 650 mg PO Q6HR PRN tab 10/30/21 [Rx] Aspirin 81 mg PO DAILY 10/30/21 [Rx] Atorvastatin [Lipitor] 40 mg PO DAILY tab 10/30/21 [Rx] Cephalexin [Keflex] 500 mg PO Q12HR 7 Days #14 cap 10/30/21 [Rx] Ciprofloxacin HCl [Cipro] 500 mg PO Q12HR 7 Days #14 tab 10/30/21 [Rx] Furosemide [Lasix] 20 mg PO DAILY tab 10/30/21 [Rx] Gabapentin [Neurontin] 100 mg PO TID cap 10/30/21 [Rx] Pantoprazole [Protonix] 40 mg PO BID 30 Days #30 tab 10/30/21 [Rx] metFORMIN HCL 500 mg PO BID 30 Days #60 tablet 10/30/21 [Rx] metroNIDAZOLE [Flagyl] 500 mg PO TID 7 Days #21 tab 10/30/21 [Rx] Follow up Appointment(s)/Referral(s): Dashawn Soto MD [Medical Doctor] - 1 Week (Family will make appointment ) Tylor Rich DO [STAFF PHYSICIAN] - 1 Week (Office will call patient with appointment date and time ) None,Stated [Primary Care Provider] - 1-2 days [facility] [NON-STAFF] - 1 Week (Please set up appointments with Dr Cameron on Mondays) Activity/Diet/Wound Care/Special Instructions: Discharging RN - Glucometer is at [facility] - please make sure she gets it prior to discharge. Cost is $58.48. Wound Care to bilateral lower legs: [employer], ABD, [facility] Asencio Thursday/thursday/thursday Discharge Disposition: TRANSFER TO SNF/ECF
[2021-11-06 14:18] VITALS: BP 93/56; PULSE 82; RESP 17; TEMP 96.7
--- NOTE | 2021-11-13 22:16 | P.PN ---
Subjective Progress Note Date: 11/05/21 Principal diagnosis: Bilateral lower extremity venous stasis ulcer and cellulitis Patient is a 66-year-old female who has not seen a physician in 20 years presented to the hospital with significant bilateral lower extremity necrotic wound and secondary cellulitis in this patient who is status post surgical debridement of these wounds in the OR on 10/13/2021. Patient did have a GI bleed could not be controlled through the EGD patient subsequently taken to the OR and status post laparotomy for a bleeding and perforated duodenal ulcer disease on 10/16/2021 On today's evaluation that is 11/05/2021, the patient remains to be afebrile, the patient is breathing comfortably on nasal cannula oxygen, patient denies chest pain no cough denies any nausea no vomiting has been tolerating her diet and no abdominal pain no diarrhea Objective - Vital Signs Vital signs: Vital Signs Temp 97.4 F L 11/05/21 07:20 Pulse 89 11/05/21 07:33 Resp 20 11/05/21 07:33 BP 116/64 11/05/21 07:20 Pulse Ox 90 L 11/05/21 07:20 FiO2 30 10/23/21 16:00 Intake & Output 11/04/21 11/05/21 11/05/21 18:59 06:59 18:59 Other: Voiding Method External Catheter External Catheter Toilet # Voids 2 ABP, PAP, CO, CI - Last Documented Arterial Blood Pressure 97/69 - Exam GENERAL DESCRIPTION: An elderly female up in the chair in no distress RESPIRATORY SYSTEM: Unlabored breathing , decreased breath sounds at bases HEART: S1 S2 regular rate and rhythm , ABDOMEN: Soft , no tenderness EXTREMITIES: Bilateral lower extremity wounds are currently dressed no drainage on the dressing - Labs CBC & Chem 7: 11/06/21 04:11 11/06/21 04:11 Labs: Abnormal Lab Results - Last 24 Hours (Table) 11/04/21 11/04/21 11/04/21 Range/Units 11:35 16:26 19:49 POC Glucose (mg/dL) 128 H 173 H 113 H (75-99) mg/dL 11/05/21 Range/Units 07:16 POC Glucose (mg/dL) 103 H (75-99) mg/dL Assessment and Plan (1) Cellulitis Status: Acute Code(s): L03.90 - CELLULITIS, UNSPECIFIED SNOMED Code(s): 742921356 Plan: 1patient with bilateral lower extremity nonhealing wound and cellulitis seems to be more of a venous stasis ulcers with secondary cellulitis and likely from gram-positive skin pb less likely gram-negative infection in this patient has not seen a physician for 20 years less likelihood of a MRSA infection. 2 patient is status post surgical debridement and deep culture which are currently growing multiple pathogens including Pseudomonas strep 3patient did have acute GI bleed with evidence of perforated and bleeding duodenal ulcer requiring laparotomy, patient has shown overall clinical improvement, the patient did have a normal white count patient has received more than 2 weeks of adequate IV antibiotic therapy , patient is currently being treated with oral Cipro and Flagyl and Keflex and and monitor clinical course closely Time with Patient: Less than 30
--- NOTE | 2021-11-13 22:18 | P.PN ---
Subjective Progress Note Date: 11/06/21 Principal diagnosis: Bilateral lower extremity venous stasis ulcer and cellulitis Patient is a 66-year-old female who has not seen a physician in 20 years presented to the hospital with significant bilateral lower extremity necrotic wound and secondary cellulitis in this patient who is status post surgical debridement of these wounds in the OR on 10/13/2021. Patient did have a GI bleed could not be controlled through the EGD patient subsequently taken to the OR and status post laparotomy for a bleeding and perforated duodenal ulcer disease on 10/16/2021 On today's evaluation that is 11/06/2021, the patient denies any fever or chills, the patient is breathing comfortably on nasal cannula oxygen, patient denies chest pain shortness of breath or cough, the patient denies denies any nausea no vomiting has been tolerating her diet and no abdominal pain no diarr hea Objective - Vital Signs Vital signs: Vital Signs Temp 98.5 F 11/06/21 07:18 Pulse 78 11/06/21 07:18 Resp 15 11/06/21 07:18 BP 109/63 11/06/21 07:18 Pulse Ox 99 11/06/21 07:18 FiO2 30 10/23/21 16:00 Intake & Output 11/05/21 11/06/21 11/06/21 18:59 06:59 18:59 Intake Total 1080 Balance 1080 Intake: Oral 1080 Other: Voiding Method Toilet Toilet External Catheter # Voids 1 1 1 # Bowel Movements 1 1 1 ABP, PAP, CO, CI - Last Documented Arterial Blood Pressure 97/69 - Exam GENERAL DESCRIPTION: An elderly female up in the chair in no distress RESPIRATORY SYSTEM: Unlabored breathing , decreased breath sounds at bases HEART: S1 S2 regular rate and rhythm , ABDOMEN: Soft , no tenderness EXTREMITIES: Bilateral lower extremity wounds are currently dressed no drainage on the dressing - Labs CBC & Chem 7: 11/06/21 04:11 11/06/21 04:11 Labs: Abnormal Lab Results - Last 24 Hours (Table) 11/05/21 11/05/21 11/06/21 Range/Units 15:52 19:38 04:11 RBC 2.75 L (4.10-5.20) X 10*6/uL Hgb 7.7 L (12.0-15.0) g/dL Hct 26.3 L (37.2-46.3) % MCHC 29.3 L (32.0-37.0) g/dL RDW 16.8 H (11.5-14.5) % Plt Count 558 H (140-440) X 10*3/uL MPV 8.8 L (9.5-12.2) fL Immature Gran # 0.13 H (0.00-0.04) X 10*3/uL Monocytes # 1.25 H (0.20-1.00) X 10*3/uL Anion Gap (10.00-18.00) mmol/L POC Glucose (mg/dL) 70 L 219 H (75-99) mg/dL Calcium (8.7-10.3) mg/dL AST (13-35) U/L Alkaline Phosphatase (41-126) U/L Total Protein (6.2-8.2) g/dL Albumin (3.8-4.9) g/dL Albumin/Globulin Ratio (1.60-3.17) g/dL 11/06/21 11/06/21 Range/Units 04:11 06:51 RBC (4.10-5.20) X 10*6/uL Hgb (12.0-15.0) g/dL Hct (37.2-46.3) % MCHC (32.0-37.0) g/dL RDW (11.5-14.5) % Plt Count (140-440) X 10*3/uL MPV (9.5-12.2) fL Immature Gran # (0.00-0.04) X 10*3/uL Monocytes # (0.20-1.00) X 10*3/uL Anion Gap 9.20 L (10.00-18.00) mmol/L POC Glucose (mg/dL) 120 H (75-99) mg/dL Calcium 7.7 L (8.7-10.3) mg/dL AST 61 H (13-35) U/L Alkaline Phosphatase 129 H (41-126) U/L Total Protein 5.1 L (6.2-8.2) g/dL Albumin 2.1 L (3.8-4.9) g/dL Albumin/Globulin Ratio 0.70 L (1.60-3.17) g/dL Assessment and Plan (1) Cellulitis Status: Acute Code(s): L03.90 - CELLULITIS, UNSPECIFIED SNOMED Code(s): 599148969 Plan: 1patient with bilateral lower extremity nonhealing wound and cellulitis seems to be more of a venous stasis ulcers with secondary cellulitis and likely from gram-positive skin pb less likely gram-negative infection in this patient has not seen a physician for 20 years less likelihood of a MRSA infection. 2 patient is status post surgical debridement and deep culture which are currently growing multiple pathogens including Pseudomonas strep 3patient did have acute GI bleed with evidence of perforated and bleeding duodenal ulcer requiring laparotomy, patient has shown overall clinical improvement, the patient did have a normal white count patient has received more than 2 weeks of adequate IV antibiotic therapy , patient may continue with oral Cipro and Flagyl and Keflex 3 more days on discharge
== END 2021-11-06 15:29 | DRG 853 ==
LOC: EC 14:19 → 5NMEDONC 19:45 → 2SICU 10-15 23:19 → 4SSUR 10-25 09:58
PROVIDERS: ADMIT Internal Medicine; ATTEND Internal Medicine
PROC: 0JBP0ZZ Excision of Left Lower Leg Subcutaneous Tissue and Fascia, Open Approach (ICD-10-PCS; 2021-10-14)
PROC: 0JBN0ZZ Excision of Right Lower Leg Subcutaneous Tissue and Fascia, Open Approach (ICD-10-PCS; 2021-10-14)
PROC: 0W3P8ZZ Control Bleeding in Gastrointestinal Tract, Via Natural or Artificial Opening Endoscopic (ICD-10-PCS; principal; 2021-10-16 17:48)
PROC: 3E0336Z Introduction of Nutritional Substance into Peripheral Vein, Percutaneous Approach (ICD-10-PCS; 2021-10-17)
PROC: 3E033XZ Introduction of Vasopressor into Peripheral Vein, Percutaneous Approach (ICD-10-PCS; 2021-10-19)
PROC: 03HY32Z Insertion of Monitoring Device into Upper Artery, Percutaneous Approach (ICD-10-PCS; 2021-10-19)
PROC: 4A133B1 Monitoring of Arterial Pressure, Peripheral, Percutaneous Approach (ICD-10-PCS; 2021-10-19)
PROC: 4A133J1 Monitoring of Arterial Pulse, Peripheral, Percutaneous Approach (ICD-10-PCS; 2021-10-19)
DX: A41.9 Sepsis, unspecified organism (principal); G92.8 Other toxic encephalopathy; R65.21 Severe sepsis with septic shock; I50.23 Acute on chronic systolic (congestive) heart failure; J95.821 Acute postprocedural respiratory failure; K26.6 Chronic or unspecified duodenal ulcer with both hemorrhage and perforation; I63.513 Cerebral infarction due to unspecified occlusion or stenosis of bilateral middle cerebral arteries; R57.1 Hypovolemic shock; L03.116 Cellulitis of left lower limb; L03.115 Cellulitis of right lower limb; D62 Acute posthemorrhagic anemia; E87.1 Hypo-osmolality and hyponatremia; E87.4 Mixed disorder of acid-base balance; F05 Delirium due to known physiological condition; N17.9 Acute kidney failure, unspecified; N39.0 Urinary tract infection, site not specified; I83.208 Varicose veins of unspecified lower extremity with both ulcer of other part of lower extremity and inflammation; I83.218 Varicose veins of right lower extremity with both ulcer of other part of lower extremity and inflammation; E11.52 Type 2 diabetes mellitus with diabetic peripheral angiopathy with gangrene; R41.4 Neurologic neglect syndrome; R45.851 Suicidal ideations; I96 Gangrene, not elsewhere classified; I25.5 Ischemic cardiomyopathy; F17.200 Nicotine dependence, unspecified, uncomplicated; I70.0 Atherosclerosis of aorta; H53.40 Unspecified visual field defects; B96.20 Unspecified Escherichia coli [E. coli] as the cause of diseases classified elsewhere; K59.00 Constipation, unspecified; D75.839 Thrombocytosis, unspecified; F01.50 Vascular dementia, unspecified severity, without behavioral disturbance, psychotic disturbance, mood disturbance, and anxiety; W01.0XXA Fall on same level from slipping, tripping and stumbling without subsequent striking against object, initial encounter; I25.2 Old myocardial infarction; Z86.73 Personal history of transient ischemic attack (TIA), and cerebral infarction without residual deficits; Z79.82 Long term (current) use of aspirin; Z79.899 Other long term (current) drug therapy; Z79.02 Long term (current) use of antithrombotics/antiplatelets; Y92.009 Unspecified place in unspecified non-institutional (private) residence as the place of occurrence of the external cause; Z82.49 Family history of ischemic heart disease and other diseases of the circulatory system
CPT/HCPCS: 36415; 36430; 36600; 43255; 70450; 71045; 72125; 80048; 80053; 80061; 81001; 82272; 82330; 82607; 82746; 82805; 83036; 83605; 83735; 84100; 84132; 84439; 84443; 84478; 85025; 85027; 85610; 85730; 86850; 86900; 86901; 86920; 87040; 87070; 87075; 87077; 87086; 87102; 87186; 87205; 87635; 93005; 93306; 93880; 94002; 94003; 96361; 96365; 96366; 96367; 96375; 96376; 99285

== ENCOUNTER → 2021-12-02 | Outpatient (CLI) | payer BC, MEDICARE, OTHER ==
[2021-12-02 18:55] LABS: HCT 31.1 % (37.2-46.3); HGB 9.2 g/dL (12.0-15.0); MCH 27.5 pg (27.0-32.0); MCHC 29.6 g/dL (32.0-37.0); MCV 92.8 fL (80.0-97.0); Mean Platelet Volume 8.8 fL (9.5-12.2); NRBC Per 100 WBC 0 /100 WBCS (0.0-0.0); Platelet Count 543 X 10*3/uL (140-440); RBC 3.35 X 10*6/uL (4.10-5.20); RDW 17.3 % (11.5-14.5); WBC 8.11 X 10*3/uL (4.50-10.00)
== END | disposition home or self-care (01) ==
LOC: LABWHC1 13:35
PROVIDERS: ATTEND Surgery
DX: K26.4 Chronic or unspecified duodenal ulcer with hemorrhage (principal)
CPT/HCPCS: 36415; 85027

== ENCOUNTER → 2021-12-10 | Outpatient (CLI) | payer BC, MEDICARE ==
--- NOTE | 2021-12-10 13:42 | CT ---
"EXAMINATION TYPE: CT abdomen pelvis wo con DATE OF EXAM: 12/10/2021 COMPARISON: No previous CT scan is available for comparison HISTORY: Diverticulitis CT DLP: 536.90 mGycm Automated exposure control for dose reduction was used. TECHNIQUE: Helical acquisition of images was performed from the lung bases through the pelvis. FINDINGS: Motion artifacts. LUNG BASES: Cardiomegaly with coronary arterial calcifications. LIVER/GB: No significant abnormality is appreciated. PANCREAS: Atrophic. SPLEEN: No significant abnormality is seen. ADRENALS: No significant abnormality is seen. KIDNEYS: No significant abnormality is seen. FREE AIR: No free air is visualized RETROPERITONEAL ADENOPATHY: None visualized REPRODUCTIVE ORGANS: No gross uterine or adnexal mass yet suboptimally assessed. URINARY BLADDER: No significant abnormality is seen. PELVIC ADENOPATHY: None visualized. OSSEOUS STRUCTURES: Osteopenia. Degenerative changes of the lower thoracic and lumbar spine. BOWEL: Soft tissue thickening and pelvic adhesions are seen between the sigmoid colon and the optical instrument repairer ior aspect of the uterus as well as the adjacent small bowel and possibly the right adnexa, which cou ld represent sequela of previous diverticulitis. Fistula at that location cannot be excluded. Colonic diverticulosis seen throughout the colon. Wall thickening of the sigmoid colon probably related to c hronic diverticulosis. No convincing evidence for acute diverticulitis. Fecal loading of the colon. OTHER: Arterial atherosclerotic calcification. No sizable ascites. IMPRESSION: Pelvic adhesions and soft tissue thickening involving the sigmoid colon, uterus, adjacent small bowel and possibly right adnexa, possibly representing sequela of previous diverticulitis. A developing fi stula at that location cannot be excluded. No definite abscess formation by this nonenhanced artifact ual CT scan. Recommend clinical correlation and surgical consultation. Further enhanced CT assessment can be considered if clinically required. Other findings as described above. A [place] level critical message alert has been initiated for Dashawn Soto MD via the [employer] 36 0 | Critical Results System on 12/10/2021 1:39 PM. This message alert has been sent to Dashawn Soto MD via the preferences provided by the clinician for the receipt of Radiology Critical Findings. [facility] ID [id number]."
== END | disposition home or self-care (01) ==
LOC: RADCTMAIN 10:21
PROVIDERS: ATTEND Surgery
DX: K57.32 Diverticulitis of large intestine without perforation or abscess without bleeding (principal); I25.10 Atherosclerotic heart disease of native coronary artery without angina pectoris; K63.89 Other specified diseases of intestine
CPT/HCPCS: 74176